=== PATIENT | female | born 1940 | race Caucasian/White ===

== ENCOUNTER → 2017-03-10 | Outpatient (REF) | payer MEDICARE, OTHER ==
[~2017-03-10] MED LIST: /ALEN70TA PO; /ALLEGDTA; /AMLO25TA PO; /CELE20CA PO; /DULO30CA PO; /LOR25TA PO; ABIL5TAB5 PO; AMIT10TA2; AMITRYPTYLINE; ASPE16CR EXT; ASPI325T PO; ASPI81TA85 PO; ATIV0.5T; ATIV1TAB2; ATIV1TAB7 PO; B COCAP5; B COTAB5 PO; BIATIN PO; BUDE300T; CALC500T49; CALCTAB88 PO; CELE100C; CELE10TA PO; CENTTAB12 PO; CHEW500C2 PO; CLAR5CHW PO; COLA50CA3 PO; COMBVENT; CYCLOSPORINE OU; CYMB1CAP5 PO; CYMBALTA PO; DEXILANT PO; DICL0.1S7 TOP; DULO30CA PO; ECOT81TA5 PO; EXELON; EYEDRO; FOLI400T PO; GABAPOW41 PO; HYDR-3713 PO; IBUPOTC PO; KETOPROFEN; LEVO50TA2 OR; LEVO50TA5 PO; LEVO75TA2; LEVO88TA3 PO; LEVOTHYROXINE PO; LIPI10TA; LISI40TA; LISI40TA PO; LISI40TAB PO; LORA2TAB; LORA2TAB PO; LORAPOW30 PO; MELOPOW; MOTR200T4 PO; NEUR100C; NEUR100C OR; NEUR300C PO; NEUR400C PO; OCUVTAB4 PO; PANT40TA2 PO; PERC5TAB6 PO; PERCOCET PO; POTASSIUM GLUCONATE; PRESER VISION PO; PRIL20CA; PROBCAP4 PO; REFR0.5D8 OU; REST0.05 OU; SALINE NASAL SPRAY; SENN8.6T10 PO; SIMV20TA2 PO; SYNT25TA PO; SYSTANE; TRAM50TA2; TRAZ50TA4 PO; TYL325; TYLE650T25 PO; ULTR50TA PO; VIT D 4000 PO; VITA10005 PO; VITA100072 PO; VITA20008 PO; VITAMIN D PO; VITAMIN D50000 UNT; VITAMIN D50000 UNT PO; VITMTA PO; WELL75TA PO; WELLTAB38 PO; ZEST40TA PO; ZOCO20TA PO; [UNRECOGNIZED DRUG - OTHER]; [UNRECOGNIZED DRUG - OTHER] OU; [UNRECOGNIZED DRUG - OTHER] OU; biotin PO; probiotic PO
== END ==
LOC: M LAB REF 16:59
PROVIDERS: ATTEND Internal Medicine
DX: R30.0 Dysuria (principal)

== ENCOUNTER 2017-04-27 22:49 | Emergency (ER) | payer MEDICARE, OTHER, MEDICAID ==
[~2017-04-27] VITALS: Ht 160 cm; Wt 75.0 kg
[~2017-04-27 22:49] MED LIST changes: +ABIL1TAB11 PO; -ABIL5TAB5 PO; +PERC5TAB12 PO; -PERC5TAB6 PO; +SENN1TAB10 PO; -SENN8.6T10 PO; +TRAZ50TA11 PO; -TRAZ50TA4 PO; -ULTR50TA PO; +ULTR50TA8 PO
[2017-04-28 00:25] LABS: BASO % 0.7 % (0.0-1.0); EOS # 0.3 K/mm3 (0.0-0.50); EOS % 5.2 % (0.0-3.0); LARGE UNSTAINED CELL # 0.2 K/mm3 (0.0-0.4); LARGE UNSTAINED CELL % 3.6 % (0.0-4.0); LYMPH # 2.3 K/mm3 (1.5-4.5); LYMPH % 41.1 % (24.0-44.0); MEAN CORPUSCULAR HEMOGLOBIN 33.4 pg (27.0-33.0); MEAN CORPUSCULAR HGB CONC 34.4 g/dl (32.0-36.5); MEAN CORPUSCULAR VOLUME 97.1 fl (80.0-96.0); MONO # 0.4 K/mm3 (0.0-0.8); MONO % 7.8 % (0.0-5.0); NEUTROPHILS # 2.2 K/mm3 (1.8-7.7); NEUTROPHILS % 41.5 % (36.0-66.0); PLATELET COUNT, AUTOMATED 235 k/mm3 (150-450); RED CELL DISTRIBUTION WIDTH 12.8 % (11.5-14.5); WHITE BLOOD COUNT 5.2 K/mm3 (4.0-10.0)
[2017-04-28 00:40] LABS: ALBUMIN 3.6 GM/DL (3.2-5.2); ALBUMIN/GLOBULIN RATIO 1.03 (1.00-1.93); ALKALINE PHOSPHATASE 66 U/L (45-117); ALT/SGPT 24 U/L (12-78); AMYLASE 31 U/L (25-115); ANION GAP 6 MEQ/L (8-16); AST/SGOT 21 U/L (15-37); BILIRUBIN,DIRECT 0.1 MG/DL (0.0-0.2); BILIRUBIN,TOTAL 0.3 MG/DL (0.2-1.0); BLOOD UREA NITROGEN 19 MG/DL (7-18); CALCIUM LEVEL 9.2 MG/DL (8.8-10.2); CARBON DIOXIDE LEVEL 28 MEQ/L (21-32); CHLORIDE LEVEL 105 MEQ/L (98-107); CREATININE FOR GFR 0.92 MG/DL (0.55-1.02); GLOMERULAR FILTRATION RATE > 60.0 (>39); GLUCOSE, FASTING 80 MG/DL (83-110); SODIUM LEVEL 139 MEQ/L (136-145); TOTAL PROTEIN 7.1 GM/DL (6.4-8.2)
[2017-04-28] MEDS ORDERED: OMEPRAZOLE 20 MG CAP PO ONE (01:15)
[2017-04-28 01:34] VITALS: BP 170/77
--- NOTE | 2017-04-29 05:53 | ECGEPIP ---
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
== END 2017-04-28 01:59 | disposition home or self-care (01) ==
LOC: EDBD 22:49 → M ED 22:49
DX: K21.9 Gastro-esophageal reflux disease without esophagitis (principal); E03.9 Hypothyroidism, unspecified; F41.9 Anxiety disorder, unspecified; M54.9 Dorsalgia, unspecified; Z87.891 Personal history of nicotine dependence; Z79.82 Long term (current) use of aspirin; Z79.899 Other long term (current) drug therapy; Z91.89 Other specified personal risk factors, not elsewhere classified

== ENCOUNTER 2017-07-21 11:42 | Emergency (ER) | payer MEDICARE, OTHER, MEDICAID ==
[~2017-07-21] VITALS: Ht 160 cm; Wt 75.9 kg
[2017-07-21] MEDS ORDERED: TUMS500C PO (12:10)
[2017-07-21] MEDS ORDERED: FLUTISP (12:10)
[2017-07-21] MEDS ORDERED: MUPI2OI EXT (12:10)
[2017-07-21] MEDS ORDERED: CENTTAB PO (12:10)
[2017-07-21] MEDS ORDERED: META58.612 PO (12:10)
[2017-07-21] MEDS ORDERED: SIME180C PO (12:10)
[2017-07-21] MEDS ORDERED: KETOROLAC 30 MG/ML VIAL (J1885) IV ONE (12:30)
[2017-07-21] MEDS ORDERED: ASPIRIN 81 MG CHEW TABLET PO ONE (12:30)
[2017-07-21] MEDS ORDERED: hydrALAZINE INJ 20 MG/ML VIAL IV ONE (12:30)
[2017-07-21 12:42] VITALS: BP 178/81
[2017-07-21 12:45] LABS: BASO % 0.7 % (0.0-1.0); EOS # 0.3 K/mm3 (0.0-0.50); EOS % 5.3 % (0.0-3.0); LARGE UNSTAINED CELL # 0.2 K/mm3 (0.0-0.4); LARGE UNSTAINED CELL % 3.7 % (0.0-4.0); LYMPH # 1.6 K/mm3 (1.5-4.5); LYMPH % 30.5 % (24.0-44.0); MEAN CORPUSCULAR HEMOGLOBIN 33.4 pg (27.0-33.0); MEAN CORPUSCULAR HGB CONC 34.1 g/dl (32.0-36.5); MEAN CORPUSCULAR VOLUME 98.2 fl (80.0-96.0); MONO # 0.3 K/mm3 (0.0-0.8); MONO % 5.5 % (0.0-5.0); NEUTROPHILS # 2.9 K/mm3 (1.8-7.7); NEUTROPHILS % 54.3 % (36.0-66.0); PLATELET COUNT, AUTOMATED 288 k/mm3 (150-450); RED CELL DISTRIBUTION WIDTH 12.5 % (11.5-14.5); WHITE BLOOD COUNT 5.4 K/mm3 (4.0-10.0)
[2017-07-21 13:11] LABS: ANION GAP 11 MEQ/L (8-16); BLOOD UREA NITROGEN 19 MG/DL (7-18); CARBON DIOXIDE LEVEL 26 MEQ/L (21-32); CHLORIDE LEVEL 104 MEQ/L (98-107); CREATININE FOR GFR 0.82 MG/DL (0.55-1.02); GLOMERULAR FILTRATION RATE > 60.0 (>39); GLUCOSE, FASTING 83 MG/DL (83-110); POTASSIUM SERUM 4.4 MEQ/L (3.5-5.1); SODIUM LEVEL 141 MEQ/L (136-145)
--- NOTE | 2017-07-21 13:16 | REP ---
Clinical: Chest pain. Technique: PA and lateral. Comparison: 02/20/2015. Findings: Mediastinum and cardiac silhouette are stable. Lung toney demonstrate chronic stable changes without acute consolidation, effusion, or pneumothorax. Skeletal structures demonstrate age-related degenerative changes and arthritic changes to the bilateral shoulders. Impression: No acute cardiopulmonary process or focal consolidation Signed by Abraham Bhagat MD 07/21/2017 01:08 P
[2017-07-21 15:14] VITALS: BP 132/96
--- NOTE | 2017-07-22 07:50 | ECGEPIP ---
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
== END 2017-07-21 16:40 | disposition home or self-care (01) ==
LOC: M ED 11:42
DX: M54.2 Cervicalgia (principal); M54.6 Pain in thoracic spine; I10 Essential (primary) hypertension; E78.00 Pure hypercholesterolemia, unspecified; F41.9 Anxiety disorder, unspecified; F32.9 Major depressive disorder, single episode, unspecified; G47.30 Sleep apnea, unspecified; Z86.73 Personal history of transient ischemic attack (TIA), and cerebral infarction without residual deficits; Z87.891 Personal history of nicotine dependence; Z79.82 Long term (current) use of aspirin; Z79.899 Other long term (current) drug therapy; Z91.89 Other specified personal risk factors, not elsewhere classified
CPT/HCPCS: 36415; 71020; 80048; 82550; 82553; 83880; 84484; 85025; 93005; 93041; 94760; 96374; 96375; 99285; J1885

== ENCOUNTER 2017-10-05 10:26 | Outpatient (RCR) | payer MEDICARE, OTHER, MEDICAID ==
[~2017-10-05 10:26] MED LIST changes: +CENTTAB PO; +FLUTISP; +META58.612 PO; +MUPI2OI EXT; +SIME180C PO; +TUMS500C PO
== END 2017-10-06 | disposition home or self-care (01) ==
LOC: M PT 10:26
PROVIDERS: ATTEND Orthopaedic Surgery
DX: Z51.89 Encounter for other specified aftercare (principal); M75.120 Complete rotator cuff tear or rupture of unspecified shoulder, not specified as traumatic; M19.011 Primary osteoarthritis, right shoulder
CPT/HCPCS: 97110; 97140; 97163; G8984; G8985

== ENCOUNTER 2017-10-12 10:52 | Outpatient (RCR) | payer MEDICARE, OTHER, MEDICAID | END 2017-11-06 | LOC: M PT 10:52 | DX: Z51.89 Encounter for other specified aftercare (principal); M19.011 Primary osteoarthritis, right shoulder; M75.111 Incomplete rotator cuff tear or rupture of right shoulder, not specified as traumatic; S50.01XA Contusion of right elbow, initial encounter | CPT/HCPCS: 97110 ==

== ENCOUNTER → 2018-01-26 | Outpatient (REF) | payer MEDICARE, OTHER, MEDICAID | DX: J98.11 Atelectasis (principal) | CPT/HCPCS: 71045 ==

== ENCOUNTER → 2018-02-28 | Outpatient (REF) | payer MEDICARE, OTHER, MEDICAID ==
[2018-02-28 10:46] LABS: HEMATOCRIT 36.2 % (36.0-47.0); HEMOGLOBIN 12.5 g/dl (12.0-15.5); MEAN CORPUSCULAR HEMOGLOBIN 32.7 pg (27.0-33.0); MEAN CORPUSCULAR HGB CONC 34.5 g/dl (32.0-36.5); MEAN CORPUSCULAR VOLUME 94.8 fl (80.0-96.0); PLATELET COUNT, AUTOMATED 289 10^3/uL (150-450); RED BLOOD COUNT 3.82 10^6/uL (4.00-5.40); WHITE BLOOD COUNT 6.2 10^3/uL (4.0-10.0)
== END ==
DX: R53.83 Other fatigue (principal)
CPT/HCPCS: 85027

== ENCOUNTER → 2018-03-07 | Outpatient (REF) | payer MEDICARE, OTHER, MEDICAID ==
[2018-03-07 11:05] LABS: CHOLESTEROL LEVEL 160 MG/DL (<200); CHOLESTEROL RISK RATIO 2.424 (<5); HDL CHOLESTEROL 66 MG/DL (>40); LDL CHOLESTEROL 75.4 MG/DL (<100); NON-HDL-C 94 MG/DL; TRIGLYCERIDES LEVEL 93 MG/DL (<150)
== END ==
DX: E78.5 Hyperlipidemia, unspecified (principal)
CPT/HCPCS: 80061

== ENCOUNTER → 2018-06-22 | Outpatient (REF) | payer MEDICARE, OTHER, MEDICAID ==
[2018-06-22 18:57] LABS: VITAMIN B12 LEVEL 716 PG/ML (247-911)
== END ==
LOC: M LAB REF 17:45
DX: R20.2 Paresthesia of skin (principal)
CPT/HCPCS: 82607

== ENCOUNTER → 2018-08-29 | Outpatient (REF) | payer MEDICARE, OTHER, MEDICAID ==
[2018-08-29 10:07] LABS: ALBUMIN 3.9 GM/DL (3.2-5.2); ALBUMIN/GLOBULIN RATIO 1.18 (1.00-1.93); ALKALINE PHOSPHATASE 87 U/L (45-117); ALT/SGPT 21 U/L (12-78); ANION GAP 9 MEQ/L (8-16); AST/SGOT 16 U/L (7-37); BILIRUBIN,TOTAL 0.5 MG/DL (0.2-1.0); BLOOD UREA NITROGEN 17 MG/DL (7-18); CALCIUM LEVEL 9.6 MG/DL (8.8-10.2); CARBON DIOXIDE LEVEL 27 MEQ/L (21-32); CHLORIDE LEVEL 103 MEQ/L (98-107); CHOLESTEROL LEVEL 170 MG/DL (<200); CHOLESTEROL RISK RATIO 2.328 (<5); CREATININE FOR GFR 0.91 MG/DL (0.55-1.30); GLOMERULAR FILTRATION RATE > 60.0 (>39); GLUCOSE, FASTING 100 MG/DL (70-100); HDL CHOLESTEROL 73 MG/DL (>40); LDL CHOLESTEROL 83 MG/DL (<100); NON-HDL-C 97 MG/DL; POTASSIUM SERUM 4.4 MEQ/L (3.5-5.1); SODIUM LEVEL 139 MEQ/L (136-145); TOTAL PROTEIN 7.2 GM/DL (6.4-8.2); TRIGLYCERIDES LEVEL 68 MG/DL (<150)
== END ==
DX: E03.9 Hypothyroidism, unspecified (principal); I10 Essential (primary) hypertension
CPT/HCPCS: 84443

== ENCOUNTER 2018-09-30 22:02 | Observation (INO) | payer MEDICARE, OTHER, MEDICAID ==
[~2018-09-30] VITALS: Ht 160 cm; Wt 77.9 kg
[~2018-09-30 22:02] MED LIST changes: -ASPE16CR EXT; +ASPE16CR TOP; -FLUTISP; +FLUTISP NARES; -PANT40TA2 PO; +PANT40TA3 PO; +TRAZ-160 PO; -TRAZ50TA11 PO
[2018-09-30] MEDS ORDERED: NYST1POW9 TOP (22:59)
[2018-09-30] MEDS ORDERED: OXYB5TAB PO (22:59)
[2018-09-30] MEDS ORDERED: LISI-538 PO (22:59)
[2018-09-30] MEDS ORDERED: MECL-68 PO (22:59)
[2018-09-30] MEDS ORDERED: HYDR25TAB PO (22:59)
[2018-09-30] MEDS ORDERED: MACR100C43 PO (22:59)
[2018-09-30] MEDS ORDERED: LORA-243 PO (22:59)
[2018-09-30] MEDS ORDERED: PANT20TA51 PO (22:59)
[2018-09-30] MEDS ORDERED: GABA-845 PO ×2 (22:59)
[2018-09-30] MEDS ORDERED: SIME80TA PO (23:10)
[2018-09-30] MEDS ORDERED: DULO1CAP3 PO (23:10)
[2018-09-30] MEDS ORDERED: VENTAER INH (23:10)
[2018-09-30] MEDS ORDERED: MUPI30CR NARES (23:10)
[2018-09-30] MEDS ORDERED: COLA100C5 PO (23:15)
[2018-09-30] MEDS ORDERED: TYLE500T78 PO (23:15)
[2018-09-30] MEDS ORDERED: GUAI1SYP8 PO (23:15)
[2018-09-30] MEDS ORDERED: SODI0.65 NARES (23:15)
[2018-09-30] MEDS ORDERED: [UNRECOGNIZED DRUG - CODE] PO (23:21)
[2018-09-30] MEDS ORDERED: CAPS0.022 TOP (23:21)
[2018-09-30] MEDS ORDERED: PREPCRE PR (23:21)
[2018-09-30] MEDS ORDERED: BIOTLIQ3 MT (23:21)
[2018-09-30] MEDS ORDERED: [UNRECOGNIZED DRUG - CODE] PO (23:21)
[2018-09-30 23:40] LABS: BASO % 0.2 % (0.0-1.0); EOS # 0.4 10^3/uL (0.0-0.50); EOS % 6.7 % (0.0-3.0); HEMATOCRIT 32.3 % (36.0-47.0); HEMOGLOBIN 11.3 g/dl (12.0-15.5); LYMPH # 0.5 10^3/uL (1.5-4.5); LYMPH % 7.6 % (24.0-44.0); MEAN CORPUSCULAR HEMOGLOBIN 32.9 pg (27.0-33.0); MEAN CORPUSCULAR VOLUME 94.2 fl (80.0-96.0); MONO # 0.5 10^3/uL (0.0-0.8); MONO % 7.7 % (0.0-5.0); NEUTROPHILS # 5.1 10^3/uL (1.8-7.7); NEUTROPHILS % 77.5 % (36.0-66.0); PLATELET COUNT, AUTOMATED 205 10^3/uL (150-450); RED BLOOD COUNT 3.43 10^6/uL (4.00-5.40); WHITE BLOOD COUNT 6.6 10^3/uL (4.0-10.0)
--- NOTE | 2018-09-30 23:46 | REPVR ---
EXAM: CT Head Without Intravenous Contrast EXAM DATE/TIME: 09/30/2018 11:31 PM CLINICAL HISTORY: 78 years old, female; Signs and symptoms; Weakness, extremity; Additional info: CVA - nursing interventions must not delay CT TECHNIQUE: Axial computed tomography images of the head/brain without intravenous contrast. All CT scans at this facility use at least one of these dose optimization techniques: automated exposure control; mA and/or kV adjustment per patient size (includes targeted exams where dose is matched to clinical indication); or iterative reconstruction. COMPARISON: CT Head without contrast 02/20/2015 1:20 PM FINDINGS: Brain: There is parenchymal volume loss consistent with patient's age. Also demonstrated are white matter changes in the subcortical, centrum semiovale and periventricular white matter consistent with age related small vessel microangiopathic gliosis. Mild midline cerebellar atrophy. Ventricles: The degree of ventricular dilatation is normal for age. No pathologic enlargement demonstrated. Bones/joints: Normal. No acute fracture. Sinuses: Normal as visualized. No acute sinusitis. Mastoid air cells: Normal as visualized. No mastoid effusion. Soft tissues: Normal. IMPRESSION: 1. There is parenchymal volume loss consistent with patient's age. Also demonstrated are white matter changes in the subcortical, centrum semiovale and periventricular white matter consistent with age related small vessel microangiopathic gliosis. 2. Mild midline cerebellar atrophy. 3. No interval change. Electronically signed by: Emiliano Aponte On 09/30/2018 23:45:35 PM
[2018-10-01] MEDS ORDERED: NS 1,000 ML IV ONE
[2018-10-01 00:09] LABS: BLOOD UREA NITROGEN 31 MG/DL (7-18); CALCIUM LEVEL 8.4 MG/DL (8.8-10.2); CARBON DIOXIDE LEVEL 26 MEQ/L (21-32); CHLORIDE LEVEL 95 MEQ/L (98-107); CPK CREATINE PHOSPHOKINASE 226 U/L (26-192); CREATININE FOR GFR 1.16 MG/DL (0.55-1.30); FREE T4 1.11 NG/DL (0.76-1.46); GLOMERULAR FILTRATION RATE 47.9 (>32); GLUCOSE, FASTING 137 MG/DL (70-100); MB/CK RELATIVE INDEX 1.24 (< OR =4); POTASSIUM SERUM 3.5 MEQ/L (3.5-5.1); SODIUM LEVEL 130 MEQ/L (136-145); TROPONIN I < 0.02 NG/ML (< 0.10)
[2018-10-01] MEDS ORDERED: MECLIZINE 25 MG TABLET PO PRN (02:45)
[2018-10-01] MEDS ORDERED: NYSTATIN 100,000 UNITS/GM TOPICAL PWD 15 GM TOP PRN (02:45)
--- NOTE | 2018-10-01 03:05 | HPEPDOC ---
[facility] Medical History & Physical Date of Admission Oct 01, 2018 History and Physical CHIEF COMPLAINT: Weakness, recent fall HISTORY OF PRESENT ILLNESS: Hayde Pond is an 78 YO F with history of hypertension, hypothyroidism, depression who was found earlier today on the floor of her studio apartment at the [facility] assisted living home after an unwitnessed fall. She states that she does not remember exactly what happened that led to her falling, but she denies any lightheadedness or dizziness prior to falling. She describes that she was leaving her bathroom heading back to her bed and she may have "turned too quickly" and lost her balance. As of recently, she has not felt stable on her feet and has has several falls. She does not report falling on her head and only complains of lower back pain, which is unchanged from her baseline. She states she has felt "blah" for the last couple of days, meaning she has not had an appetite for certain meals and generally has felt weak with very low energy. She says she was found to have a fever this morning, but she is unsure of how high. She has not been ill recently and denies any SOB, CP, abdominal pain, N/V or diarrhea. Of note, she was recently found to have a UTI and has been on macrobid since 09/28/2018. She denies any dysuria, but does report having difficulty starting her urinary stream. PAST MEDICAL HISTORY: 1. HTN 2. Hypercholesterolemia 3. GERD 4. Hypothyroidism 5. Neuropathy 6. History of stroke 7. Depression PAST SURGICAL HISTORY: 1. Back surgery (2013) SOCIAL HISTORY: Lives at [facility]. Former smoker (quit >40 years ago). Denies ET [place]. FAMILY HISTORY: Noncontributory ALLERGIES: Please see below. REVIEW OF SYSTEMS: Per HPI HOME MEDICATIONS: Please see below. PHYSICAL EXAMINATION: VITAL SIGNS: Temperature 98.3, pulse 90, respiratory rate 20, blood pressure 150/71, pulse oximetry 95% on room air. GENERAL APPEARANCE: Laying in bed sleeping, no acute distress, calm, cooperative HEENT: Normocephalic, atraumatic, L eyelid discoloration CARDIOVASCULAR: RRR, no m/r/g, nml S1/S2 LUNGS: Clear to auscultation bilaterally ABDOMEN: Soft, nontender, +BS, no organomegaly EXTREMITIES: no clubbing, cyanosis or edema NEUROLOGICAL: CN 2-12 intact, decreased sensation in plantar surface of feet bilaterally, no other focal deficits PSYCHIATRIC: AAOx3, normal mood, normal affect LABORATORY DATA: See below. IMAGING: CT head: 1. There is parenchymal volume loss consistent with patient's age. Also demonstrated are white matter changes in the subcortical, centrum semiovale and periventricular white matter consistent with age related small vessel microangiopathic gliosis. 2. Mild midline cerebellar atrophy. 3. No interval change. MICROBIOLOGY: Please see below. ASSESSMENT: Hayde Pond is an 78 YO F with recently diagnosed with UTI on abx at assisted living, hypertension, HLD, GERD, Hypothyroidism, neuropathy, hx of stroke, depression who presents to the ED after fall and complaint of weakness in [facility]. In ER, patient found to be orthostatic. PLAN: 1. Recent falls and weakness: suspect from orthostatic hypotension and dehydration from recent UTI-currently on treatment, and neuropathy -Patient reports she feels she is is unstable on her feet -PT ordered to assess mobility -CT head negative for any acute process and no focal deficits noted on physical exam. Patient does have a history of neuropathy and parts of her feet are without sensation. This may be the etiology of her repeated falls. -No indication for syncope workup at this time except tele but would consider if patient does not improve on current regimen. -Patient is orthostatic at this time; Will give 1 L IVF NS in addition to the 1L bolus in ED, hold HCTZ for now -Orthostatic vitals Q4H -Fall precautions 2. Dehydration: Patient found to have elevated CK and BUN. On UTI treatment -Should improve with fluids -Will recheck labs in AM -Patient does report decreased PO intake recently -Holding HCTZ for hypertension at this time 3. Recent UTI on abx treatment: -Macrobid changed to Cipro x3 days to adjust for patient's renal function 4. Neuropathy: -Continue Gabapentin 400 BID and 800 QHS 5. HTN: -Continue Lisinopril -Holding HCTZ 6. HLD: -Continue Simvastatin 7. Hypothyroidism: -Continue Levothyroxine -TSH normal 8. Depression: -Continue Duloxetine DVT prop w hep sc CODE STATUS:Patient request DNR/DNI Vital Signs Vital Signs Date Time Temp Pulse Resp B/P (MAP) Pulse Ox O2 Delivery O2 Flow Rate FiO2 10/01/18 01:05 150/71 (97) 10/01/18 01:02 96 10/01/18 00:47 18 92 09/30/18 22:12 98.3 Room Air 09/30/18 22:10 2.0 Laboratory Data Labs 24H Laboratory Tests 2 09/30/18 23:22: Immature Granulocyte % (Auto) 0.3, White Blood Count 6.6, Red Blood Count 3.43L, Hemoglobin 11.3L, Hematocrit 32.3L, Mean Corpuscular Volume 94.2, Mean Corpuscular Hemoglobin 32.9, Mean Corpuscular Hemoglobin Concent 35.0, Red Cell Distribution Width 12.6, Platelet Count 205, Neutrophils (%) (Auto) 77.5H, Lymphocytes (%) (Auto) 7.6L, Monocytes (%) (Auto) 7.7H, Eosinophils (%) (Auto) 6.7H, Basophils (%) (Auto) 0.2, Neutrophils # (Auto) 5.1, Lymphocytes # (Auto) 0.5L, Monocytes # (Auto) 0.5, Eosinophils # (Auto) 0.4, Basophils # (Auto) 0.0, Nucleated Red Blood Cells % (auto) 0.0, Anion Gap 9, Glomerular Filtration Rate 47.9, Blood Urea Nitrogen 31H, Creatinine 1.16, Sodium Level 130L, Potassium Level 3.5, Chloride Level 95L, Carbon Dioxide Level 26, Calcium Level 8.4L, T otal Creatine Kinase 226H, Creatine Kinase MB 3.0, Creatine Kinase MB Relative Index 1.24, Troponin I < 0.02, Thyroid Stimulating Hormone (TSH) 1.910, Free Thyroxine 1.11 09/30/18 23:47: Bedside Glucose (Misc Panel) 127H 10/01/18 01:07: Urine Color ADONIS, Urine Appearance HAZY, Urine pH 5.0, Urine Specific [place] 1.014, Urine Protein NEGATIVE, Urine Glucose (UA) NEGATIVE, Urine Ketones NEGATIVE, Urine Blood NEGATIVE, Urine Nitrite NEGATIVE, Urine Bilirubin NEGATIVE, Urine Urobilinogen 4.0H, Urine Leukocyte Esterase TRACEH, Urine WBC (Auto) 4H, Urine RBC (Auto) 2, Urine Hyaline Casts (Auto) 0, Urine Bacteria (Auto) NEGATIVE, Urine Squamous Epithelial Cells 0, Urine Sperm (Auto) CBC/BMP Laboratory Tests 09/30/18 23:22 Red Blood Count 3.43 L, Mean Corpuscular Volume 94.2, Mean Corpuscular Hemoglobin 32.9, Mean Corpuscular Hemoglobin Concent 35.0, Red Cell Distribution Width 12.6, Neutrophils (%) (Auto) 77.5 H, Lymphocytes (%) (Auto) 7.6 L, Monocytes (%) (Auto) 7.7 H, Eosinophils (%) (Auto) 6.7 H, Basophils (%) (Auto) 0.2, Neutrophils # (Auto) 5.1, Lymphocytes # (Auto) 0.5 L, Monocytes # (Auto) 0.5, Eosinophils # (Auto) 0.4, Basophils # (Auto) 0.0, Calcium Level 8.4 L, Total Creatine Kinase 226 H Microbiology Microbiology 10/01/18 Urine Culture, Received Pending Home Medications Scheduled (Restasis) 0.05 % Emu, 1 DROP OU BID (Metamucil Fiber) 51.7 % Kevin, 1 DOSE PO DAILY Aspirin (Aspirin) 325 Mg Tab, 325 MG PO DAILY Calcium Carbonate (Tums) 500 Mg Chw, 500 MG PO BID Cholecalciferol (Vitamin D3) 2,000 Unit Tab, 2,000 UNIT PO DAILY Duloxetine Hcl (Duloxetine HCl) 60 Mg Cap, 60 MG PO DAILY Fluticasone Propionate (Fluticasone Propionate) 50 Mcg/Act Spr, 2 SPRAY NARES DAILY Folic Acid (Folic Acid) 400 Mcg Tab, 400 MCG PO DAILY Gabapentin (Gabapentin) 400 Mg Cap, 800 MG PO QHS Gabapentin (Gabapentin) 400 Mg Cap, 400 MG PO BID 0900, 1400 Hydrochlorothiazide (Hydrochlorothiazide) 25 Mg Tab, 25 MG PO DAILY Levothyroxine Sodium (Synthroid) 50 Mcg Tab, 50 MCG PO DAILY Lisinopril (Lisinopril) 20 Mg Tab, 20 MG PO QHS Loratadine (Loratadine) 10 Mg Tab, 10 MG PO DAILY Multivitamin Areds (Preservision Areds) 1 Tab Tab, 2 TAB PO BID Multivitamins (Centrum Silver) 1 Tab Tab, 1 TAB PO DAILY Nitrofurantoin Monohydrate Mac (Macrobid) 100 Mg Cap, 100 MG PO BID FOR 7 DAYS STARTING 09/28/18 Oxybutynin Chloride (Oxybutynin Chloride ER) 5 Mg Tab, 5 MG PO DAILY Pantoprazole Sodium Sesquihydr (Pantoprazole Sodium Dr) 20 Mg Tab, 20 MG PO BID Simvastatin (Zocor) 20 Mg Tab, 20 MG PO QHS Vitamin B Complex/Vit C (B Complex/C) 1 Tab Tab, 1 TAB PO DAILY Scheduled PRN (Aspercreme W/Lidocaine) 4 % Cre, 1 DOSE TOP Q6H PRN for PAIN APPLIES TO LOWER BACK (Guaifenesin/Dextromethorp 10-100 mg/5Ml) 1 Syp Syp, 1 DOSE PO Q4H PRN for COUGH (Biotene Dry Mouth Mouthwa) 1 Liq Liq, 1 DOSE MT QID PRN for DRY MOUTH (Ibuprofen Pm 200-38 mg) 1 Tab Tab, 1 TAB PO QHS PRN for INSOMNIA (Preparation H 1-0.25-14.4-15 %) 1 Cre Cre, 1 DOSE [place] QID PRN for HEMORRHOIDS Acetaminophen (Tylenol Extra Strength) 500 Mg Tab, 500 MG PO Q12H PRN for PAIN Albuterol Sulfate (Ventolin Hfa) 108 Mcg/Act Aer, 2 PUFF INH Q4H PRN for SOB/WHEEZING Capsaicin (Capsaicin) 0.025 % Cre, 1 DOSE TOP TID PRN for PAIN Carboxymethylcellulose Sodium (Refresh Tears) 0.5 % Johan, 1 DROP OU QID PRN for DRY EYES Docusate Sodium (Colace) 100 Mg Cap, 100 MG PO BID PRN for CONSTIPATION Ibuprofen (Ibuprofen) 200 Mg Tab, 200 MG PO Q6H PRN for PAIN Lysine HCl (l-Lysine) 1,000 Mg Tab, 1,000 MG PO QID PRN for COLD SORE Meclizine HCl (Meclizine HCl) 25 Mg Tab, 25 MG PO Q6H PRN for DIZZINESS Mupirocin (Mupirocin) 1 Dose/30 Gm Cream, 1 DOSE TOP BID PRN for RASH DIRECTED FOR NASAL RASH Nystatin (Nystatin Powder) 100,000 Unit/Gm Pow, 1 DOSE TOP BID PRN for RASH APPLY TO AFFECTED AREA UNDER BREASTS AND IN GROIN AREA Simethicone (Simethicone) 80 Mg Chew, 80 MG PO QID PRN for GAS PAIN Sodium Chloride (Sodium Chloride Nasal [place]) 0.65 % Spr, 2 SPRAY NARES Q6H PRN for NASAL DRYNESS EACH NOSTRIL Allergies Coded Allergies: TAPE (Verified Adverse Reaction, Intermediate, RED AREA, TAKES SKIN OFF, 07/23/15) GME ATTESTATION GME ATTESTATION My faculty preceptor for this patient encounter was physically present during the encounter and was fully available. All aspects of the patient interview, examination, medical decision making process, and medical care plan development were reviewed and approved by the faculty preceptor. The faculty preceptor is aware and concurs with the plan as stated in the body of this note and will attest to such by his/her cosignature. IRVING PAINTER MD Oct 01, 2018 03:05 ISSA BANKS MD Oct 01, 2018 03:48
[2018-10-01] MEDS ORDERED: IPRATROPIUM 0.5MG/ALBUTEROL 2.5MG INH SOL UD 3ML (DUONEB)(J7620) NEB PRN (03:15)
[2018-10-01 04:45] VITALS: BP 132/60
[2018-10-01] MEDS: NS 1,000 ML IV SCH ×3 (04:53→23:37)
[2018-10-01 05:00] VITALS: BP_SYST 132; BP_SYST 137; BP_SYST 142; BP_DIAS 60; BP_DIAS 67; BP_DIAS 74
[2018-10-01] MEDS: HEPARIN SOD (PORCINE) 5000 UNITS/ML VIAL SC SCH ×3 (05:54→20:48)
[2018-10-01] MEDS: LEVOTHYROXINE 50MCG TABLET (0.05MG) PO SCH (06:00)
[2018-10-01] MEDS: ACETAMINOPHEN TAB 650MG DOSE (2X325MG) PO PRN ×3 (07:53→17:07)
--- NOTE | 2018-10-01 08:08 | REP ---
Clinical: Acute cerebrovascular accident . Comparison: 01/26/2018 . Findings: The mediastinum and cardiac silhouette are stable and within normal limits for portable technique. Chronic elevation to the right hemidiaphragm again noted. The lung toney demonstrate chronic stable changes without acute consolidation, effusion, or pneumothorax. Skeletal structures demonstrate degenerative changes primarily involving the bilateral shoulders. Impression: No acute cardiopulmonary process appreciated. Electronically Signed by Abraham Bhagat MD 10/01/2018 07:59 A
[2018-10-01] MEDS: ASPIRIN 325 MG TAB PO SCH (08:28)
[2018-10-01] MEDS: DULoxetine 30 MG CAP (CYMBALTA) PO SCH (08:28)
[2018-10-01] MEDS: oxyBUTYnin *DITROPAN XL* 5 MG TABCR PO SCH (08:28)
[2018-10-01] MEDS: CEFDINIR 300 MG CAP (OMNICEF) PO SCH ×2 (08:29→20:48)
[2018-10-01] MEDS: GABAPENTIN 400 MG CAP PO SCH ×3 (08:29→20:50)
[2018-10-01] MEDS: LORATADINE 10 MG TAB PO SCH (08:29)
[2018-10-01] MEDS: SENOKOT S TAB PO SCH ×2 (08:29→20:50)
[2018-10-01] MEDS ORDERED: hydroCHLOROthiazide 25 MG TAB PO SCH (09:00)
[2018-10-01] MEDS ORDERED: CIPROFLOXACIN 500 MG TAB PO SCH (09:00)
[2018-10-01] MEDS ORDERED: NITROFURANTOIN (MACROBID) 100 MG CAP PO SCH (09:00)
[2018-10-01 10:00] VITALS: BP_SYST 109; BP_SYST 118; BP_SYST 120; BP_DIAS 41; BP_DIAS 53; BP_DIAS 60
[2018-10-01 14:00] VITALS: BP_SYST 125; BP_SYST 137; BP_SYST 142; BP_DIAS 61; BP_DIAS 63; BP_DIAS 64; BP_DIAS 67
[2018-10-01 18:00] VITALS: BP_SYST 130; BP_SYST 138; BP_SYST 139; BP_SYST 156; BP_DIAS 52; BP_DIAS 63; BP_DIAS 65; BP_DIAS 82
--- NOTE | 2018-10-01 20:43 | ECGEPIP ---
Stationary ECG Study [facility] - ED Test Date: 2018-09-30 Pat Name: ROYA VILLAFANA Department: Room: [place] [address] Gender: F Manager Wind: tasneem : 1940 Requested By: STEVEN KOVACS Order Number: [id number] Reading MD: Marysol Lee Measurements Intervals [place] Rate: 87 P: 49 MS: 190 QRS: 25 QRSD: 106 T: 55 QT: 357 QTc: 431 Interpretive Statements SINUS RHYTHM INCREASED RATE 07/21/17 Electronically Signed On 10-01-2018 20:42:46 EST by Marysol Lee
[2018-10-01] MEDS: LISINOPRIL 20 MG TAB PO SCH (20:49)
[2018-10-01] MEDS: SIMVASTATIN 20 MG TAB PO SCH (20:50)
[2018-10-01] MEDS ORDERED: LISINOPRIL 20 MG TAB PO SCH (21:00)
[2018-10-01 22:00] VITALS: BP_SYST 135; BP_SYST 136; BP_SYST 140; BP_SYST 141; BP_DIAS 65; BP_DIAS 67; BP_DIAS 68
[2018-10-02] VITALS (9 sets, daily range): BP systolic 135–160; BP diastolic 63–91
[2018-10-02] MEDS: HEPARIN SOD (PORCINE) 5000 UNITS/ML VIAL SC SCH ×3 (05:44→21:08)
[2018-10-02] MEDS: LEVOTHYROXINE 50MCG TABLET (0.05MG) PO SCH (05:44)
[2018-10-02 06:00] LABS: HEMATOCRIT 31.5 % (36.0-47.0); HEMOGLOBIN 10.8 g/dl (12.0-15.5); MEAN CORPUSCULAR HEMOGLOBIN 32.9 pg (27.0-33.0); MEAN CORPUSCULAR HGB CONC 34.3 g/dl (32.0-36.5); PLATELET COUNT, AUTOMATED 193 10^3/uL (150-450); RED BLOOD COUNT 3.28 10^6/uL (4.00-5.40); WHITE BLOOD COUNT 4.1 10^3/uL (4.0-10.0)
[2018-10-02 06:23] LABS: BLOOD UREA NITROGEN 19 MG/DL (7-18); CALCIUM LEVEL 7.9 MG/DL (8.8-10.2); CARBON DIOXIDE LEVEL 26 MEQ/L (21-32); CHLORIDE LEVEL 104 MEQ/L (98-107); CREATININE FOR GFR 0.91 MG/DL (0.55-1.30); GLOMERULAR FILTRATION RATE > 60.0 (>32); GLUCOSE, FASTING 96 MG/DL (70-100); POTASSIUM SERUM 3.7 MEQ/L (3.5-5.1); SODIUM LEVEL 136 MEQ/L (136-145)
[2018-10-02] MEDS: DULoxetine 30 MG CAP (CYMBALTA) PO SCH (08:40)
[2018-10-02] MEDS: oxyBUTYnin *DITROPAN XL* 5 MG TABCR PO SCH (08:40)
[2018-10-02] MEDS: ASPIRIN 325 MG TAB PO SCH (08:40)
[2018-10-02] MEDS: CEFDINIR 300 MG CAP (OMNICEF) PO SCH ×2 (08:40→19:55)
[2018-10-02] MEDS: LORATADINE 10 MG TAB PO SCH (08:41)
[2018-10-02] MEDS: GABAPENTIN 400 MG CAP PO SCH ×3 (08:41→19:55)
[2018-10-02] MEDS: ACETAMINOPHEN TAB 650MG DOSE (2X325MG) PO PRN ×2 (08:41→19:54)
[2018-10-02] MEDS: SENOKOT S TAB PO SCH ×2 (08:41→20:01)
--- NOTE | 2018-10-02 10:11 | IPNPDOC ---
Date Seen The patient was seen on 10/02/18. Progress Note SUBJECTIVE: Ms. Pond states she feels better this morning compared to when she was admitted and is able to get around without issue but has not worked with physical therapy yet. She does report that she is not dizzy when she walks around, but once she sits down she feels dizzy. She is able to eat and drink well, and has not had a BM due to constipation. She was encouraged to take her PRN stool softeners. OBJECTIVE PHYSICAL EXAMINATION: VITAL SIGNS: Please see below. GENERAL APPEARANCE: Laying in bed sleeping, no acute distress, calm, cooperative HEENT: Normocephalic, atraumatic, L eyelid discoloration CARDIOVASCULAR: RRR, no m/r/g, nml S1/S2 LUNGS: Clear to auscultation bilaterally ABDOMEN: Soft, nontender, +BS, no organomegaly EXTREMITIES: no clubbing, cyanosis or edema NEUROLOGICAL: CN 2-12 intact, decreased sensation in plantar surface of feet bilaterally, no other focal deficits PSYCHIATRIC: AAOx3, normal mood, normal affect LABORATORY DATA, IMAGING STUDIES, MICROBIOLOGY: Please see below. DVT prophylaxis ordered?: [facility] ASSESSMENT: Hayde Pond is an 78 YO F with recently diagnosed with UTI on abx at [facility], hypertension, HLD, GERD, Hypothyroidism, neuropathy, hx of stroke, depression who presents to the ED after fall and complaint of weakness in [facility]. In ER, patient found to be orthostatic. PLAN: 1. Recent falls and weakness: suspect from orthostatic hypotension and dehydration from recent UTI-currently on treatment, and neuropathy -Patient reports she feels she is is unstable on her feet -PT ordered to assess mobility -CT head negative for any acute process and no focal deficits noted on physical exam. Patient does have a history of neuropathy and parts of her feet are without sensation. This may be the etiology of her repeated falls. -Continuous tele without event -Orthostasis resolved s/p multiple 1L bolus NS -Continue Orthostatic vitals Q4H -Fall precautions 2. Dehydration: Patient found to have elevated CK and BUN. On UTI treatment -Repeat labs demonstrate improvement in BUN -Patient does report decreased PO intake recently -Holding HCTZ for hypertension at this time 3. Recent UTI on abx treatment: -Cipro changed to Cefdinir 4. Neuropathy: -Continue Gabapentin 400 BID and 800 QHS 5. HTN: -Lisinopril decreased to avoid excessive hypotension -Holding HCTZ 6. HLD: -Continue Simvastatin 7. Hypothyroidism: -Continue Levothyroxine -TSH normal 8. Depression: -Continue Duloxetine DVT prop w hep sc CODE STATUS:Patient request DNR/DNI VS, I&O, 24H, Fishbone Vital Signs/I&O Vital Signs Date Time Temp Pulse Resp B/P (MAP) Pulse Ox O2 Delivery O2 Flow Rate FiO2 10/02/18 06:00 80 154/74 (100) 78 143/65 (91) 83 154/77 (102) 10/02/18 06:00 97.2 92 Room Air 10/02/18 02:00 16 09/30/18 22:10 2.0 I&O- Last 24 Hours up to 6 AM 10/02/18 06:00 Intake Total 3580 ml Output Total 2500 ml Balance 1080 ml Laboratory Data 24H LABS Laboratory Tests 2 10/02/18 05:44: Nucleated Red Blood Cells % (auto) 0.0, Anion Gap 6L, Glomerular Filtration Rate > 60.0, Blood Urea Nitrogen 19H, Creatinine 0.91, Sodium Level 136, Potassium Level 3.7, Chloride Level 104, Carbon Dioxide Level 26, Calcium Level 7.9L CBC/BMP Laboratory Tests 10/02/18 05:44 Red Blood Count 3.28 L, Mean Corpuscular Volume 96.0, Mean Corpuscular Hemoglobin 32.9, Mean Corpuscular Hemoglobin Concent 34.3, Red Cell Distribution Width 12.8, Calcium Level 7.9 L Microbiology Microbiology 10/01/18 Urine Culture, Received Pending GME ATTESTATION GME ATTESTATION My faculty preceptor for this patient encounter was physically present during the encounter and was fully available. All aspects of the patient interview, examination, medical decision making process, and medical care plan development were reviewed and approved by the faculty preceptor. The faculty preceptor is aware and concurs with the plan as stated in the body of this note and will attest to such by his/her cosignature. IRVING PAINTER MD Oct 02, 2018 08:21
[2018-10-02] MEDS: SIMVASTATIN 20 MG TAB PO SCH (19:55)
[2018-10-02] MEDS: LISINOPRIL 20 MG TAB PO SCH (20:01)
[2018-10-03] MEDS: LEVOTHYROXINE 50MCG TABLET (0.05MG) PO SCH (05:34)
[2018-10-03] MEDS: HEPARIN SOD (PORCINE) 5000 UNITS/ML VIAL SC SCH (05:35)
[2018-10-03 06:00] VITALS: BP 160/84
[2018-10-03 06:25] LABS: HEMATOCRIT 31.2 % (36.0-47.0); HEMOGLOBIN 11.1 g/dl (12.0-15.5); MEAN CORPUSCULAR HEMOGLOBIN 33.4 pg (27.0-33.0); MEAN CORPUSCULAR HGB CONC 35.6 g/dl (32.0-36.5); PLATELET COUNT, AUTOMATED 226 10^3/uL (150-450); RED BLOOD COUNT 3.32 10^6/uL (4.00-5.40); WHITE BLOOD COUNT 4.2 10^3/uL (4.0-10.0)
[2018-10-03 06:45] VITALS: BP 144/78
[2018-10-03 06:52] LABS: BLOOD UREA NITROGEN 17 MG/DL (7-18); CALCIUM LEVEL 8.3 MG/DL (8.8-10.2); CARBON DIOXIDE LEVEL 27 MEQ/L (21-32); CHLORIDE LEVEL 103 MEQ/L (98-107); CREATININE FOR GFR 0.81 MG/DL (0.55-1.30); GLOMERULAR FILTRATION RATE > 60.0 (>32); GLUCOSE, FASTING 84 MG/DL (70-100); POTASSIUM SERUM 3.8 MEQ/L (3.5-5.1); SODIUM LEVEL 137 MEQ/L (136-145)
[2018-10-03] MEDS: DULoxetine 30 MG CAP (CYMBALTA) PO SCH (09:29)
[2018-10-03] MEDS: oxyBUTYnin *DITROPAN XL* 5 MG TABCR PO SCH (09:29)
[2018-10-03] MEDS: LORATADINE 10 MG TAB PO SCH (09:29)
[2018-10-03] MEDS: ASPIRIN 325 MG TAB PO SCH (09:30)
[2018-10-03] MEDS: CEFDINIR 300 MG CAP (OMNICEF) PO SCH (09:30)
[2018-10-03] MEDS: GABAPENTIN 400 MG CAP PO SCH (09:30)
[2018-10-03] MEDS: SENOKOT S TAB PO SCH (09:30)
[2018-10-03] MEDS ORDERED: LISI-538 PO (09:37)
[2018-10-03 10:00] VITALS: BP 154/85
--- NOTE | 2018-10-03 13:13 | DS.PDOC ---
Discharge Summary General Date of Admission Sep 30, 2018 at 22:03 Date of Discharge 10/03/18 Discharge Summary DISCHARGE DIAGNOSES: orthostatic hypotension hyponatremia due to dehydration dehydration recent UTI HTN Hypercholesterolemia GERD Hypothyroidism Neuropathy History of stroke Depression HOSPITAL COURSE: Hayde Pond is an 78 YO F with history of hypertension, hypothyroidism, depression who was found earlier today on the floor of her studio apartment at the [facility] living home after an unwitnessed fall. She states that she does not remember exactly what happened that led to her falling, but she denies any lightheadedness or dizziness prior to falling. She describes that she was leaving her bathroom heading back to her bed and she may have "turned too quickly" and lost her balance. As of recently, she has not felt stable on her feet and has has several falls. She does not report falling on her head and only complains of lower back pain, which is unchanged from her baseline. She states she has felt "blah" for the last couple of days, meaning she has not had an appetite for certain meals and generally has felt weak with very low energy. She says she was found to have a fever this morning, but she is unsure of how high. She has not been ill recently and denies any SOB, CP, abdominal pain, N/V or diarrhea. Of note, she was recently found to have a UTI and has been on macrobid since 09/28/2018. She denies any dysuria, but does report having difficulty starting her urinary stream.1. Recent falls and weakness: most likely from orthostatic hypotension and dehydration from recent UTI-was placed on cefdinir and discharged on macrodantin. urine cx was no growth, and neuropathy-Patient reports she feels she is is unstable on her feet -PT ordered to assess mobility-CT head negative for any acute process and no focal deficits noted on physical exam. Patient does have a history of neuropathy and parts of her feet are without sensation. This may be the etiology of her repeated falls.-Continuous tele without event-Orthostasis resolved s/p multiple 1L bolus NS-Continue Orthostatic vitals E2S-Wufd precautions. Dehydration: Patient found to have elevated CK and BUN. On UTI treatment-Repeat labs demonstrate improvement in BUN-Patient does report decreased PO intake recently- Holding HCTZ for hypertension at this time.Recent UTI on abx treatment:-Cipro changed to Cefdinir during her hospital stay, but urine cx was negative and had no growth, and she was discharged on her home dose of macrodantin. Neuropathy:- Continue Gabapentin 400 BID and 800 QHS.HTN:-Lisinopril decreased to avoid excessive hypotension-Holding HCTZ. HLD:-Continue Simvastatin. Hypothyroidism:- Continue Levothyroxine-TSH normal.. Depression: Continue Duloxetine. DVT prop w hep sc. CODE STATUS:Patient request DNR/DNI. Pt passed HSE and discharged to [facility]. DISCHARGE MEDICATIONS: Please see below. ALLERGIES: Please see below. PHYSICAL EXAMINATION ON DISCHARGE: VITAL SIGNS: Please see below. GENERAL: no respiratory distress. no use of respiratory acccessory muscles HEENT: Normocephalic, atraumatic, L eyelid discoloration CARDIOVASCULAR: RRR, no m/r/g, nml S1/S2 LUNGS: no respiratory distress. no wheezing or rales. Clear to auscultation bilaterally no adventitious breath sounds ABDOMEN:nondistended Soft, nontender, +BS, no organomegaly EXTREMITIES: no clubbing, cyanosis or edema NEUROLOGICAL: CN 2-12 intact, decreased sensation in plantar surface of feet bilaterally, no other focal deficits PSYCHIATRIC: AAOx3, normal mood, normal affect LABORATORY DATA: Please see below. TIME SPENT ON DISCHARGE: 30 minutes. Vital Signs/I&Os Vital Signs Date Time Temp Pulse Resp B/P (MAP) Pulse Ox O2 Delivery O2 Flow Rate FiO2 10/03/18 10:00 98.2 83 20 154/85 (108) 95 10/02/18 21:02 Room Air 09/30/18 22:10 2.0 I&O- Last 24 Hours up to 6 AM 10/03/18 06:00 Intake Total 3261 ml Output Total 1500 ml Balance 1761 ml Laboratory Data Labs 24H Laboratory Tests 2 10/03/18 06:15: Nucleated Red Blood Cells % (auto) 0.0, Anion Gap 7L, Glomerular Filtration Rate > 60.0, Blood Urea Nitrogen 17, Creatinine 0.81, Sodium Level 137, Potassium Level 3.8, Chloride Level 103, Carbon Dioxide Level 27, Calcium Level 8.3L CBC/BMP Laboratory Tests 10/03/18 06:15 Red Blood Count 3.32 L, Mean Corpuscular Volume 94.0, Mean Corpuscular Hemoglobin 33.4 H, Mean Corpuscular Hemoglobin Concent 35.6, Red Cell Distribution Width 13.0, Calcium Level 8.3 L Microbiology Microbiology 10/01/18 Urine Culture - Final, Complete Discharge Medications Scheduled (Restasis) 0.05 % Emu, 1 DROP OU BID, (Reported) (Metamucil Fiber) 51.7 % Kevin, 1 DOSE PO DAILY, (Reported) Aspirin (Aspirin) 325 Mg Tab, 325 MG PO DAILY, (Reported) Calcium Carbonate (Tums) 500 Mg Chw, 500 MG PO BID, (Reported) Cholecalciferol (Vitamin D3) 2,000 Unit Tab, 2,000 UNIT PO DAILY, (Reported) Duloxetine Hcl (Duloxetine HCl) 60 Mg Cap, 60 MG PO DAILY, (Reported) Fluticasone Propionate (Fluticasone Propionate) 50 Mcg/Act Spr, 2 SPRAY NARES DAILY, (Reported) Folic Acid (Folic Acid) 400 Mcg Tab, 400 MCG PO DAILY, (Reported) Gabapentin (Gabapentin) 400 Mg Cap, 800 MG PO QHS, (Reported) Gabapentin (Gabapentin) 400 Mg Cap, 400 MG PO BID, (Reported) 0900, 1400 Levothyroxine Sodium (Synthroid) 50 Mcg Tab, 50 MCG PO DAILY, (Reported) Lisinopril (Lisinopril) 20 Mg Tab, 10 MG PO QHS Loratadine (Loratadine) 10 Mg Tab, 10 MG PO DAILY, (Reported) Multivitamin Areds (Preservision Areds) 1 Tab Tab, 2 TAB PO BID, (Reported) Multivitamins (Centrum Silver) 1 Tab Tab, 1 TAB PO DAILY, (Reported) Nitrofurantoin Monohydrate Mac (Macrobid) 100 Mg Cap, 100 MG PO BID, (Reported) FOR 7 DAYS STARTING 09/28/18 Oxybutynin Chloride (Oxybutynin Chloride ER) 5 Mg Tab, 5 MG PO DAILY, (Reported) Pantoprazole Sodium Sesquihydr (Pantoprazole Sodium Dr) 20 Mg Tab, 20 MG PO BID, (Reported) Simvastatin (Zocor) 20 Mg Tab, 20 MG PO QHS, (Reported) Vitamin B Complex/Vit C (B Complex/C) 1 Tab Tab, 1 TAB PO DAILY, (Reported) Scheduled PRN (Aspercreme W/Lidocaine) 4 % Cre, 1 DOSE TOP Q6H PRN for PAIN, (Reported) APPLIES TO LOWER BACK (Guaifenesin/Dextromethorp 10-100 mg/5Ml) 1 Syp Syp, 1 DOSE PO Q4H PRN for COUGH, (Reported) (Biotene Dry Mouth Mouthwa) 1 Liq Liq, 1 DOSE MT QID PRN for DRY MOUTH, (Reported) (Ibuprofen Pm 200-38 mg) 1 Tab Tab, 1 TAB PO QHS PRN for INSOMNIA, (Reported) (Preparation H 1-0.25-14.4-15 %) 1 Cre Cre, 1 DOSE AZ QID PRN for HEMORRHOIDS, (Reported) Acetaminophen (Tylenol Extra Strength) 500 Mg Tab, 500 MG PO Q12H PRN for PAIN, (Reported) Albuterol Sulfate (Ventolin Hfa) 108 Mcg/Act Aer, 2 PUFF INH Q4H PRN for SOB/WHEEZING, (Reported) Capsaicin (Capsaicin) 0.025 % Cre, 1 DOSE TOP TID PRN for PAIN, (Reported) Carboxymethylcellulose Sodium (Refresh Tears) 0.5 % Johan, 1 DROP OU QID PRN for DRY EYES, (Reported) Docusate Sodium (Colace) 100 Mg Cap, 100 MG PO BID PRN for CONSTIPATION, (Reported) Ibuprofen (Ibuprofen) 200 Mg Tab, 200 MG PO Q6H PRN for PAIN, (Reported) Lysine HCl (l-Lysine) 1,000 Mg Tab, 1,000 MG PO QID PRN for COLD SORE, (Reported) Meclizine HCl (Meclizine HCl) 25 Mg Tab, 25 MG PO Q6H PRN for DIZZINESS, (Reported) Mupirocin (Mupirocin) 1 Dose/30 Gm Cream, 1 DOSE TOP BID PRN for RASH, (Reported) DIRECTED FOR NASAL RASH Nystatin (Nystatin Powder) 100,000 Unit/Gm Pow, 1 DOSE TOP BID PRN for RASH, (Reported) APPLY TO AFFECTED AREA UNDER BREASTS AND IN GROIN AREA Simethicone (Simethicone) 80 Mg Chew, 80 MG PO QID PRN for GAS PAIN, (Reported) Sodium Chloride (Sodium Chloride Nasal [place]) 0.65 % Spr, 2 SPRAY NARES Q6H PRN for NASAL DRYNESS, (Reported) EACH NOSTRIL Allergies Coded Allergies: TAPE (Verified Adverse Reaction, Intermediate, RED AREA, TAKES SKIN OFF, 07/23/15) AMBROSIO WALKER MD Oct 03, 2018 13:05
[2018-10-12] MEDS ORDERED: LISI-538 PO (17:12)
[2018-10-17] MEDS ORDERED: NORCOTAB PO (08:22)
[2018-10-17] MEDS ORDERED: DICL13PA TOP (08:22)
[2018-10-17] MEDS ORDERED: LISI-542 PO (08:22)
[2018-10-17] MEDS ORDERED: LEVO125T4 PO (08:22)
== END 2018-10-03 12:30 ==
LOC: M ED 22:02 → M ED INP 22:03 → M MSPAV 10-01 04:35
PROVIDERS: ADMIT Internal Medicine; ATTEND General Practice
DX: I95.1 Orthostatic hypotension (principal); E87.1 Hypo-osmolality and hyponatremia; E86.0 Dehydration; N39.0 Urinary tract infection, site not specified; I10 Essential (primary) hypertension; E78.00 Pure hypercholesterolemia, unspecified; K21.9 Gastro-esophageal reflux disease without esophagitis; E03.9 Hypothyroidism, unspecified; G62.9 Polyneuropathy, unspecified; Z86.73 Personal history of transient ischemic attack (TIA), and cerebral infarction without residual deficits; F32.9 Major depressive disorder, single episode, unspecified; M54.9 Dorsalgia, unspecified; R29.6 Repeated falls; R50.9 Fever, unspecified; R26.81 Unsteadiness on feet; Z79.899 Other long term (current) drug therapy; Z79.82 Long term (current) use of aspirin; Z79.2 Long term (current) use of antibiotics; Z91.048 Other nonmedicinal substance allergy status; Z87.891 Personal history of nicotine dependence
CPT/HCPCS: 36415; 70450; 71045; 80048; 81001; 82550; 82553; 84439; 84443; 84484; 85025; 85027; 87086; 93005; 93041; 94760; 96360; 96361; 96372; 97116; 97161; 97530; 99285; G0378; G8978; G8979; G8980

== ENCOUNTER 2018-10-12 16:02 | Inpatient (IN) | payer MEDICARE, MEDICAID ==
[2018-10-12 16:22] LABS: BEDSIDE GLUCOSE 101 MG/DL (83-110)
[2018-10-12 16:32] LABS: BASO % 0.2 % (0.0-1.0); EOS # 0.2 10^3/uL (0.0-0.50); HEMATOCRIT 37.3 % (36.0-47.0); HEMOGLOBIN 12.7 g/dl (12.0-15.5); IMMATURE GRANULOCYTE % 0.5 % (0-3.0); LYMPH # 0.4 10^3/uL (1.5-4.5); LYMPH % 4.1 % (24.0-44.0); MEAN CORPUSCULAR VOLUME 96.9 fl (80.0-96.0); MONO # 0.2 10^3/uL (0.0-0.8); MONO % 1.6 % (0.0-5.0); NEUTROPHILS # 9.7 10^3/uL (1.8-7.7); NEUTROPHILS % 91.6 % (36.0-66.0); PLATELET COUNT, AUTOMATED 521 10^3/uL (150-450); RED BLOOD COUNT 3.85 10^6/uL (4.00-5.40); RED CELL DISTRIBUTION WIDTH 13.3 % (11.5-14.5); WHITE BLOOD COUNT 10.6 10^3/uL (4.0-10.0)
[2018-10-12] MEDS: NS 1,000 ML IV ×2 (16:45→21:57)
[2018-10-12 16:49] LABS: KETONE, URINE AUTO RFX NEGATIVE (NEGATIVE); LEUKOCYTE ESTERASE UR AUTO RFX NEGATIVE (NEGATIVE); MUCUS, URINE RFX SMALL (NEGATIVE); NITRITE, URINE AUTO RFX NEGATIVE (NEGATIVE); RBC, URINE AUTO RFX 0 /HPF (0-3); SPECIFIC GRAVITY UR AUTO RFX 1.009 (1.002-1.035); SQUAM EPITHELIAL CELL UR AURFX 0 /HPF (0-6); WBC, URINE AUTO RFX 3 /HPF (0-3)
[2018-10-12 16:50] LABS: VENOUS BASE EXCESS -0.9 (-2.0-2.0); VENOUS HCO3 25.4 MEQ/L (23.0-27.0); VENOUS O2 SATURATION 60.3 % (60.0-80.0); VENOUS PARTIAL PRESSURE CO2 48.1 mmHg (38.0-50.0); VENOUS PARTIAL PRESSURE O2 33.7 mmHg (30.0-50.0); VENOUS STANDARD HCO3 22.9 MEQ/L; VENOUS TOTAL CO2 26.8 MEQ/L (24.0-28.0)
[2018-10-12 16:59] LABS: ALBUMIN 3.2 GM/DL (3.2-5.2); ALBUMIN/GLOBULIN RATIO 0.89 (1.00-1.93); ALKALINE PHOSPHATASE 154 U/L (45-117); ALT/SGPT 57 U/L (12-78); ANION GAP 11 MEQ/L (8-16); AST/SGOT 96 U/L (7-37); BILIRUBIN,DIRECT 0.2 MG/DL (0.0-0.2); BILIRUBIN,TOTAL 0.4 MG/DL (0.2-1.0); BLOOD UREA NITROGEN 19 MG/DL (7-18); CALCIUM LEVEL 8.8 MG/DL (8.8-10.2); CARBON DIOXIDE LEVEL 25 MEQ/L (21-32); CHLORIDE LEVEL 103 MEQ/L (98-107); CPK CREATINE PHOSPHOKINASE 39 U/L (26-192); CREATININE FOR GFR 1.27 MG/DL (0.55-1.30); GLOMERULAR FILTRATION RATE 43.1 (>32); GLUCOSE, FASTING 101 MG/DL (70-100); MB/CK RELATIVE INDEX 3.59 (< OR =4); POTASSIUM SERUM 4.2 MEQ/L (3.5-5.1); SODIUM LEVEL 139 MEQ/L (136-145); TOTAL PROTEIN 6.8 GM/DL (6.4-8.2); TROPONIN I < 0.02 NG/ML (< 0.10)
[2018-10-12 17:14] LABS: AMMONIA 23 uMOL/L (<32)
[2018-10-12] MEDS: PIPERACILLIN/TAZOBACTAM SOD 3.375 GM in D5W MINI-BAG PLUS 50 ML IV (17:39)
[2018-10-12] MEDS: IBUPROFEN 600 MG TAB PO (17:41)
[2018-10-12] MEDS: VANCOMYCIN HCL 1,000 MG, VIAL MATE ADAPTER 1 EACH in D5W 250 ML IV (18:50)
[2018-10-12] MEDS ORDERED: NYSTATIN 100,000 UNITS/GM TOPICAL PWD 15 GM TOP (19:45)
[2018-10-12] MEDS ORDERED: MECLIZINE 25 MG TABLET PO (19:45)
[2018-10-12] MEDS ORDERED: NS 1,000 ML IV (19:45)
[2018-10-12] MEDS ORDERED: DOCUSATE SODIUM 100 MG CAP PO (19:45)
[2018-10-12] MEDS ORDERED: SIMETHICONE 80 MG CHEW TAB PO (19:45)
[2018-10-12 19:48] LABS: C REACTIVE PROTEIN QUANTITATIV 0.47 MG/DL (0.00-0.30)
[2018-10-12 20:29] LABS: ERYTHROCYTE SEDIMENTATION RATE 59 mm/hr (0-30)
[2018-10-12] MEDS ORDERED: cefTRIAXone SOD 1 GM in D5W MINI-BAG PLUS 50 ML IV (20:30)
[2018-10-12] MEDS ORDERED: NITROFURANTOIN (MACROBID) 100 MG CAP PO (21:00)
[2018-10-12] MEDS ORDERED: GABAPENTIN 400 MG CAP PO (21:00)
[2018-10-12 21:38] LABS: TROPONIN I < 0.02 NG/ML (< 0.10)
[2018-10-12] MEDS: LISINOPRIL 20 MG TAB PO (21:40)
[2018-10-12] MEDS: GABAPENTIN 300 MG CAP PO (21:45)
[2018-10-12] MEDS: CALCIUM CARBONATE 500 MG CHEW U/D PO (21:45)
[2018-10-12] MEDS: cefTRIAXone SOD 1 GM in D5W MINI-BAG PLUS 50 ML IV ×2 (21:45→21:48)
[2018-10-12] MEDS: SIMVASTATIN 20 MG TAB PO (21:45)
[2018-10-13] MEDS: IBUPROFEN 600 MG TAB PO ×3 (01:29→17:48)
[2018-10-13] MEDS: LEVOTHYROXINE 62.5MCG PER 1/2 TAB (0.0625MG) PO (06:16)
[2018-10-13] MEDS: HEPARIN SOD (PORCINE) 5000 UNITS/ML VIAL SC ×3 (06:22→21:19)
[2018-10-13 06:35] LABS: HEMATOCRIT 31.1 % (36.0-47.0); MEAN CORPUSCULAR HEMOGLOBIN 32.9 pg (27.0-33.0); MEAN CORPUSCULAR HGB CONC 33.4 g/dl (32.0-36.5); MEAN CORPUSCULAR VOLUME 98.4 fl (80.0-96.0); PLATELET COUNT, AUTOMATED 433 10^3/uL (150-450); RED BLOOD COUNT 3.16 10^6/uL (4.00-5.40); RED CELL DISTRIBUTION WIDTH 13.2 % (11.5-14.5); WHITE BLOOD COUNT 13.3 10^3/uL (4.0-10.0)
[2018-10-13 06:47] LABS: HEMOGLOBIN 10.4 g/dl (12.0-15.5)
[2018-10-13 07:00] LABS: ANION GAP 8 MEQ/L (8-16); BLOOD UREA NITROGEN 24 MG/DL (7-18); CALCIUM LEVEL 8.6 MG/DL (8.8-10.2); CARBON DIOXIDE LEVEL 23 MEQ/L (21-32); CHLORIDE LEVEL 107 MEQ/L (98-107); CREATININE FOR GFR 1.11 MG/DL (0.55-1.30); GLOMERULAR FILTRATION RATE 50.3 (>32); GLUCOSE, FASTING 100 MG/DL (70-100); POTASSIUM SERUM 4.4 MEQ/L (3.5-5.1); SODIUM LEVEL 138 MEQ/L (136-145)
[2018-10-13] MEDS: ASPIRIN 325 MG TAB PO (08:20)
[2018-10-13] MEDS: DULoxetine 30 MG CAP (CYMBALTA) PO (08:21)
[2018-10-13] MEDS: CALCIUM CARBONATE 500 MG CHEW U/D PO ×2 (08:21→20:37)
[2018-10-13] MEDS: VITAMIN D 1,000 INTERNATIONAL UNITS TABLET PO (08:21)
[2018-10-13] MEDS: MULTIVITAMINS/MINERALS THERAP 1 TAB PO (08:21)
[2018-10-13] MEDS: oxyBUTYnin *DITROPAN XL* 5 MG TABCR PO (08:22)
[2018-10-13] MEDS: GABAPENTIN 300 MG CAP PO ×3 (08:29→20:37)
[2018-10-13] MEDS: FLUTICASONE PROP 0.05% NASAL SPRAY 16 GM (FLONASE) NARES (08:29)
[2018-10-13] MEDS ORDERED: GABAPENTIN 400 MG CAP PO ×2 (09:00)
[2018-10-13] MEDS: VITAMIN B COMPLEX/VIT C CAP PO (09:42)
[2018-10-13] MEDS: CAPSAICIN 0.025% CR 60 GM TOP (13:00)
[2018-10-13] MEDS: SIMVASTATIN 20 MG TAB PO (20:37)
[2018-10-13] MEDS: cefTRIAXone SOD 1 GM in D5W MINI-BAG PLUS 50 ML IV (20:37)
[2018-10-13] MEDS ORDERED: LISINOPRIL 20 MG TAB PO (21:00)
[2018-10-14] MEDS: IBUPROFEN 600 MG TAB PO ×2 (05:38→20:12)
[2018-10-14] MEDS: LEVOTHYROXINE 62.5MCG PER 1/2 TAB (0.0625MG) PO (05:38)
[2018-10-14] MEDS: HEPARIN SOD (PORCINE) 5000 UNITS/ML VIAL SC ×3 (05:38→21:13)
[2018-10-14 06:23] LABS: HEMATOCRIT 29.7 % (36.0-47.0); HEMOGLOBIN 10.2 g/dl (12.0-15.5); MEAN CORPUSCULAR HEMOGLOBIN 32.9 pg (27.0-33.0); MEAN CORPUSCULAR HGB CONC 34.3 g/dl (32.0-36.5); MEAN CORPUSCULAR VOLUME 95.8 fl (80.0-96.0); PLATELET COUNT, AUTOMATED 429 10^3/uL (150-450); RED CELL DISTRIBUTION WIDTH 13.4 % (11.5-14.5); WHITE BLOOD COUNT 9.7 10^3/uL (4.0-10.0)
[2018-10-14 06:46] LABS: ANION GAP 7 MEQ/L (8-16); BLOOD UREA NITROGEN 16 MG/DL (7-18); CALCIUM LEVEL 9.1 MG/DL (8.8-10.2); CARBON DIOXIDE LEVEL 25 MEQ/L (21-32); CHLORIDE LEVEL 106 MEQ/L (98-107); CREATININE FOR GFR 0.86 MG/DL (0.55-1.30); GLOMERULAR FILTRATION RATE > 60.0 (>32); GLUCOSE, FASTING 90 MG/DL (70-100); POTASSIUM SERUM 4.2 MEQ/L (3.5-5.1); SODIUM LEVEL 138 MEQ/L (136-145)
[2018-10-14] MEDS: FLUTICASONE PROP 0.05% NASAL SPRAY 16 GM (FLONASE) NARES (10:57)
[2018-10-14] MEDS: VITAMIN B COMPLEX/VIT C CAP PO (10:57)
[2018-10-14] MEDS: MULTIVITAMINS/MINERALS THERAP 1 TAB PO (10:58)
[2018-10-14] MEDS: VITAMIN D 1,000 INTERNATIONAL UNITS TABLET PO (10:58)
[2018-10-14] MEDS: CALCIUM CARBONATE 500 MG CHEW U/D PO ×2 (10:59→20:11)
[2018-10-14] MEDS: GABAPENTIN 300 MG CAP PO ×3 (10:59→20:11)
[2018-10-14] MEDS: oxyBUTYnin *DITROPAN XL* 5 MG TABCR PO (11:00)
[2018-10-14] MEDS: ASPIRIN 325 MG TAB PO (11:00)
[2018-10-14] MEDS: DULoxetine 30 MG CAP (CYMBALTA) PO (11:00)
[2018-10-14] MEDS: LISINOPRIL 5 MG TAB PO (11:03)
[2018-10-14] MEDS: PERCOCET 5MG/325MG TAB PO (11:09)
[2018-10-14] MEDS: ONDANSETRON 4MG/2ML VIAL (J2405) IV (13:53)
[2018-10-14] MEDS: NORCO, ANEXSIA 5/325MG TABLET (HYDROcodone/ACETAMINOPHEN) PO (17:55)
[2018-10-14] MEDS: cefTRIAXone SOD 1 GM in D5W MINI-BAG PLUS 50 ML IV (20:12)
[2018-10-14] MEDS: SIMVASTATIN 20 MG TAB PO (21:12)
[2018-10-15 05:51] LABS: ANION GAP 5 MEQ/L (8-16); BLOOD UREA NITROGEN 18 MG/DL (7-18); CALCIUM LEVEL 9.2 MG/DL (8.8-10.2); CARBON DIOXIDE LEVEL 27 MEQ/L (21-32); CHLORIDE LEVEL 106 MEQ/L (98-107); GLOMERULAR FILTRATION RATE > 60.0 (>32); GLUCOSE, FASTING 87 MG/DL (70-100); POTASSIUM SERUM 4.3 MEQ/L (3.5-5.1); SODIUM LEVEL 138 MEQ/L (136-145)
[2018-10-15] MEDS: HEPARIN SOD (PORCINE) 5000 UNITS/ML VIAL SC ×3 (05:57→21:56)
[2018-10-15] MEDS: LEVOTHYROXINE 62.5MCG PER 1/2 TAB (0.0625MG) PO (05:58)
[2018-10-15] MEDS: NORCO, ANEXSIA 5/325MG TABLET (HYDROcodone/ACETAMINOPHEN) PO (05:58)
[2018-10-15 06:16] LABS: HEMATOCRIT 30.8 % (36.0-47.0); HEMOGLOBIN 10.4 g/dl (12.0-15.5); MEAN CORPUSCULAR HEMOGLOBIN 32.6 pg (27.0-33.0); MEAN CORPUSCULAR HGB CONC 33.8 g/dl (32.0-36.5); MEAN CORPUSCULAR VOLUME 96.6 fl (80.0-96.0); PLATELET COUNT, AUTOMATED 460 10^3/uL (150-450); RED BLOOD COUNT 3.19 10^6/uL (4.00-5.40); RED CELL DISTRIBUTION WIDTH 13.4 % (11.5-14.5)
[2018-10-15] MEDS: VITAMIN B COMPLEX/VIT C CAP PO (09:46)
[2018-10-15] MEDS: MULTIVITAMINS/MINERALS THERAP 1 TAB PO (09:46)
[2018-10-15] MEDS: GABAPENTIN 300 MG CAP PO ×3 (09:46→20:44)
[2018-10-15] MEDS: DULoxetine 30 MG CAP (CYMBALTA) PO (09:46)
[2018-10-15] MEDS: oxyBUTYnin *DITROPAN XL* 5 MG TABCR PO (09:46)
[2018-10-15] MEDS: VITAMIN D 1,000 INTERNATIONAL UNITS TABLET PO (09:46)
[2018-10-15] MEDS: CALCIUM CARBONATE 500 MG CHEW U/D PO ×2 (09:46→20:44)
[2018-10-15] MEDS: ASPIRIN 325 MG TAB PO (09:46)
[2018-10-15] MEDS: LISINOPRIL 5 MG TAB PO (09:47)
[2018-10-15] MEDS: FLUTICASONE PROP 0.05% NASAL SPRAY 16 GM (FLONASE) NARES (09:48)
[2018-10-15] MEDS: IBUPROFEN 600 MG TAB PO (14:13)
[2018-10-15] MEDS: SIMVASTATIN 20 MG TAB PO (20:44)
[2018-10-16] MEDS: IBUPROFEN 600 MG TAB PO ×2 (03:02→20:05)
[2018-10-16] MEDS: LEVOTHYROXINE 62.5MCG PER 1/2 TAB (0.0625MG) PO (05:50)
[2018-10-16] MEDS: HEPARIN SOD (PORCINE) 5000 UNITS/ML VIAL SC ×3 (05:50→23:00)
[2018-10-16 05:57] LABS: HEMATOCRIT 33.4 % (36.0-47.0); HEMOGLOBIN 11.4 g/dl (12.0-15.5); MEAN CORPUSCULAR HGB CONC 34.1 g/dl (32.0-36.5); MEAN CORPUSCULAR VOLUME 96.8 fl (80.0-96.0); PLATELET COUNT, AUTOMATED 465 10^3/uL (150-450); RED BLOOD COUNT 3.45 10^6/uL (4.00-5.40)
[2018-10-16 06:23] LABS: ANION GAP 7 MEQ/L (8-16); BLOOD UREA NITROGEN 18 MG/DL (7-18); CALCIUM LEVEL 9.5 MG/DL (8.8-10.2); CARBON DIOXIDE LEVEL 29 MEQ/L (21-32); CHLORIDE LEVEL 101 MEQ/L (98-107); CREATININE FOR GFR 0.94 MG/DL (0.55-1.30); GLOMERULAR FILTRATION RATE > 60.0 (>32); GLUCOSE, FASTING 98 MG/DL (70-100); POTASSIUM SERUM 4.9 MEQ/L (3.5-5.1); SODIUM LEVEL 137 MEQ/L (136-145)
[2018-10-16] MEDS: FLUTICASONE PROP 0.05% NASAL SPRAY 16 GM (FLONASE) NARES (09:20)
[2018-10-16] MEDS: DICLOFENAC EPOLAMINE 1.3 % PATCH TOP ×2 (09:21→20:05)
[2018-10-16] MEDS: MULTIVITAMINS/MINERALS THERAP 1 TAB PO (09:22)
[2018-10-16] MEDS: ASPIRIN 325 MG TAB PO (09:22)
[2018-10-16] MEDS: CALCIUM CARBONATE 500 MG CHEW U/D PO ×2 (09:22→20:04)
[2018-10-16] MEDS: DULoxetine 30 MG CAP (CYMBALTA) PO (09:22)
[2018-10-16] MEDS: VITAMIN B COMPLEX/VIT C CAP PO (09:22)
[2018-10-16] MEDS: LISINOPRIL 5 MG TAB PO (09:22)
[2018-10-16] MEDS: GABAPENTIN 300 MG CAP PO ×3 (09:22→20:04)
[2018-10-16] MEDS: VITAMIN D 1,000 INTERNATIONAL UNITS TABLET PO (09:22)
[2018-10-16] MEDS: oxyBUTYnin *DITROPAN XL* 5 MG TABCR PO (09:23)
[2018-10-16] MEDS: SIMVASTATIN 20 MG TAB PO (20:04)
[2018-10-17] MEDS: HEPARIN SOD (PORCINE) 5000 UNITS/ML VIAL SC (05:30)
[2018-10-17] MEDS: LEVOTHYROXINE 62.5MCG PER 1/2 TAB (0.0625MG) PO (05:32)
[2018-10-17 05:52] LABS: HEMATOCRIT 33.8 % (36.0-47.0); HEMOGLOBIN 11.6 g/dl (12.0-15.5); MEAN CORPUSCULAR HGB CONC 34.3 g/dl (32.0-36.5); MEAN CORPUSCULAR VOLUME 96.3 fl (80.0-96.0); PLATELET COUNT, AUTOMATED 501 10^3/uL (150-450); RED BLOOD COUNT 3.51 10^6/uL (4.00-5.40); RED CELL DISTRIBUTION WIDTH 12.9 % (11.5-14.5); WHITE BLOOD COUNT 5.8 10^3/uL (4.0-10.0)
[2018-10-17 06:19] LABS: ANION GAP 8 MEQ/L (8-16); BLOOD UREA NITROGEN 17 MG/DL (7-18); CALCIUM LEVEL 8.9 MG/DL (8.8-10.2); CARBON DIOXIDE LEVEL 26 MEQ/L (21-32); CHLORIDE LEVEL 105 MEQ/L (98-107); CREATININE FOR GFR 0.93 MG/DL (0.55-1.30); GLOMERULAR FILTRATION RATE > 60.0 (>32); GLUCOSE, FASTING 97 MG/DL (70-100); POTASSIUM SERUM 4.3 MEQ/L (3.5-5.1); SODIUM LEVEL 139 MEQ/L (136-145)
[2018-10-17] MEDS: VITAMIN B COMPLEX/VIT C CAP PO (09:22)
[2018-10-17] MEDS: ASPIRIN 325 MG TAB PO (09:22)
[2018-10-17] MEDS: MOM 30ML SUSPENSION UDC PO (09:23)
[2018-10-17] MEDS: GABAPENTIN 300 MG CAP PO (09:23)
[2018-10-17] MEDS: DICLOFENAC EPOLAMINE 1.3 % PATCH TOP (09:23)
[2018-10-17] MEDS: VITAMIN D 1,000 INTERNATIONAL UNITS TABLET PO (09:23)
[2018-10-17] MEDS: DULoxetine 30 MG CAP (CYMBALTA) PO (09:23)
[2018-10-17] MEDS: SENOKOT S TAB PO (09:24)
[2018-10-17] MEDS: MULTIVITAMINS/MINERALS THERAP 1 TAB PO (09:24)
[2018-10-17] MEDS: oxyBUTYnin *DITROPAN XL* 5 MG TABCR PO (09:24)
[2018-10-17] MEDS: FLUTICASONE PROP 0.05% NASAL SPRAY 16 GM (FLONASE) NARES (09:25)
[2018-10-17] MEDS: CALCIUM CARBONATE 500 MG CHEW U/D PO (09:25)
[2018-10-17] MEDS: LISINOPRIL 5 MG TAB PO (09:25)
[2018-10-17] MEDS ORDERED: FLEET ENEMA PR (16:00)
[2018-10-17] MEDS ORDERED: MOM 30ML SUSPENSION UDC PO (21:00)
[2018-10-18] MEDS ORDERED: FLEET ENEMA PR (09:00)
== END 2018-10-17 11:36 | DRG 315 ==
LOC: M ED 16:02 → M ED INP 19:30 → M MSPAV 23:14
DX: I95.9 Hypotension, unspecified (principal); G93.40 Encephalopathy, unspecified; R55 Syncope and collapse; I10 Essential (primary) hypertension; E78.5 Hyperlipidemia, unspecified; K21.9 Gastro-esophageal reflux disease without esophagitis; Z86.73 Personal history of transient ischemic attack (TIA), and cerebral infarction without residual deficits; Z79.82 Long term (current) use of aspirin; Z79.899 Other long term (current) drug therapy; Z87.891 Personal history of nicotine dependence; G62.9 Polyneuropathy, unspecified; F32.9 Major depressive disorder, single episode, unspecified; G47.33 Obstructive sleep apnea (adult) (pediatric); M54.5 Low back pain; E66.9 Obesity, unspecified; Z68.31 Body mass index [BMI] 31.0-31.9, adult; M19.011 Primary osteoarthritis, right shoulder; M19.012 Primary osteoarthritis, left shoulder

== ENCOUNTER → 2018-12-12 | Outpatient (REF) | payer MEDICARE, MEDICAID, OTHER ==
[~2018-12-12] MED LIST changes: -/AMLO25TA PO; -/CELE20CA PO; -/DULO30CA PO; +ASPI-1 PO; -ASPI325T PO; +BIOTLIQ3 MT; +CAPS0.022 TOP; +CELE1CAP4 PO; +COLA100C5 PO; +DICL13PA TOP; +DULO1CAP3 PO; -DULO30CA PO; +DULO30CA9 PO; +FLUTISP; -FLUTISP NARES; +GABA-845 PO; +GUAI1SYP8 PO; +HYDR-3715 PO; +HYDR25TAB PO; +LEVO125T4 PO; +LEVO125T41 PO; +LISI-538 PO; +LISI-542 PO; +LISI40TA52 PO; -LISI40TAB PO; +LORA-243 PO; +LOSA50TA88 PO; +MACR100C43 PO; +MECL-68 PO; +MILKSUS5 PO; +MIRA3350 PO; +MUPI30CR NARES; +NORV2TAB PO; +NYST1POW9 TOP; +OXYB5TAB PO; +OXYC1TAB23 PO; +PANT20TA51 PO; -PERCOCET PO; +PREPCRE PR; +SIME80TA PO; +SODI0.65 NARES; +TAMI30CA PO; +TYLE500T78 PO; +VENTAER INH; +VITA100018 PO; -VITA100072 PO; +VOLT1GEL15 TOP; +[UNRECOGNIZED DRUG - CODE] PO; +[UNRECOGNIZED DRUG - CODE] PO
[2018-12-12 10:20] LABS: BASO # 0.1 10^3/uL (0.0-0.2); BASO % 1.1 % (0.0-1.0); EOS # 0.4 10^3/uL (0.0-0.50); EOS % 7.7 % (0.0-3.0); HEMATOCRIT 35.7 % (36.0-47.0); HEMOGLOBIN 12.1 g/dl (12.0-15.5); LYMPH # 1.4 10^3/uL (1.5-4.5); LYMPH % 31.6 % (24.0-44.0); MEAN CORPUSCULAR HEMOGLOBIN 32.4 pg (27.0-33.0); MEAN CORPUSCULAR HGB CONC 33.9 g/dl (32.0-36.5); MEAN CORPUSCULAR VOLUME 95.5 fl (80.0-96.0); MONO # 0.5 10^3/uL (0.0-0.8); MONO % 10.4 % (0.0-5.0); NEUTROPHILS # 2.2 10^3/uL (1.8-7.7); PLATELET COUNT, AUTOMATED 268 10^3/uL (150-450); RED BLOOD COUNT 3.74 10^6/uL (4.00-5.40); WHITE BLOOD COUNT 4.5 10^3/uL (4.0-10.0)
[2018-12-12 10:37] LABS: ALBUMIN 3.8 GM/DL (3.2-5.2); ALT/SGPT 22 U/L (12-78); BILIRUBIN,TOTAL 0.4 MG/DL (0.2-1.0); BLOOD UREA NITROGEN 19 MG/DL (7-18); CALCIUM LEVEL 9.1 MG/DL (8.8-10.2); CARBON DIOXIDE LEVEL 25 MEQ/L (21-32); CHLORIDE LEVEL 105 MEQ/L (98-107); CHOLESTEROL LEVEL 144 MG/DL (<200); CREATININE FOR GFR 0.95 MG/DL (0.55-1.30); GLOMERULAR FILTRATION RATE > 60.0 (>32); GLUCOSE, FASTING 92 MG/DL (70-100); HDL CHOLESTEROL 64 MG/DL (>40); LDL CHOLESTEROL 60 MG/DL (<100); MAGNESIUM LEVEL 2.2 MG/DL (1.8-2.4); NON-HDL-C 80 MG/DL; POTASSIUM SERUM 4.3 MEQ/L (3.5-5.1); SODIUM LEVEL 139 MEQ/L (136-145); THYROID STIMULATING HORMONE 0.781 uIU/ML (0.358-3.740); TOTAL PROTEIN 7.1 GM/DL (6.4-8.2); TRIGLYCERIDES LEVEL 99 MG/DL (<150)
== END ==
PROVIDERS: ATTEND Internal Medicine
DX: I10 Essential (primary) hypertension (principal); R53.83 Other fatigue; E78.00 Pure hypercholesterolemia, unspecified; N39.9 Disorder of urinary system, unspecified; E83.42 Hypomagnesemia

== ENCOUNTER 2018-12-27 08:28 | Emergency (ER) | payer MEDICARE, MEDICAID, OTHER ==
[~2018-12-27 08:28] MED LIST changes: +/AMLO25TA PO; +/CELE20CA PO; +/DULO30CA PO; -ASPI-1 PO; +ASPI325T PO; -CELE1CAP4 PO; +DULO30CA PO; -DULO30CA9 PO; -FLUTISP; +FLUTISP NARES; -HYDR-3715 PO; -LEVO125T41 PO; -LISI40TA52 PO; +LISI40TAB PO; -LOSA50TA88 PO; -MILKSUS5 PO; -MIRA3350 PO; +NORCOTAB PO; -NORV2TAB PO; -OXYC1TAB23 PO; +PERCOCET PO; -TAMI30CA PO; -VITA100018 PO; +VITA100072 PO; -VOLT1GEL15 TOP
[2018-12-27] MEDS ORDERED: LOSA50TA88 PO (08:54)
[2018-12-27] MEDS ORDERED: NORCO, ANEXSIA 5/325MG TABLET (HYDROcodone/ACETAMINOPHEN) PO ONE (09:15)
--- NOTE | 2018-12-27 10:00 | REP ---
Unilateral right ribs PA chest five views History: Posterior pain [facility]: 10/12/2018 The right hemidiaphragm. Linear densities are present in the right lower lobe consistent with atelectasis or scar. The left lung is clear. The heart is normal in size. The pulmonary vasculature is normal in appearance. There are fractures of the right eighth and ninth ribs. Impression: 1. Right lower lobe atelectasis or scar. 2. Fractures of the right eighth and ninth ribs. Electronically Signed by Oumar Hoang MD 12/27/2018 09:51 A
[2018-12-27] MEDS ORDERED: MIRA3350 PO (10:18)
[2018-12-27 12:33] VITALS: BP 174/93
== END 2018-12-27 12:35 | disposition home or self-care (01) ==
LOC: M ED 08:28 → EDBD 08:28 → M ED 12:35
DX: S22.41XA Multiple fractures of ribs, right side, initial encounter for closed fracture (principal); W01.198A Fall on same level from slipping, tripping and stumbling with subsequent striking against other object, initial encounter; Y92.013 Bedroom of single-family (private) house as the place of occurrence of the external cause; I10 Essential (primary) hypertension; K21.9 Gastro-esophageal reflux disease without esophagitis; F33.9 Major depressive disorder, recurrent, unspecified; Z79.899 Other long term (current) drug therapy; Z79.82 Long term (current) use of aspirin; Z91.048 Other nonmedicinal substance allergy status

== ENCOUNTER 2019-01-29 10:10 | Emergency (ER) | payer MEDICARE, MEDICAID ==
[~2019-01-29] VITALS: Ht 160 cm; Wt 74.5 kg
[~2019-01-29 10:10] MED LIST changes: -/AMLO25TA PO; -/CELE20CA PO; -/DULO30CA PO; +ASPI-1 PO; -ASPI325T PO; +CELE1CAP4 PO; -DULO30CA PO; +DULO30CA9 PO; +FLUTISP; -FLUTISP NARES; +HYDR-3715 PO; +LISI40TA52 PO; -LISI40TAB PO; +LOSA50TA88 PO; +MIRA3350 PO; -NORCOTAB PO; +NORV2TAB PO; +OXYC1TAB23 PO; -PERCOCET PO; +VITA100018 PO; -VITA100072 PO
[2019-01-29] MEDS ORDERED: ACETAMINOPHEN TAB 650MG DOSE (2X325MG) PO ONE (10:30)
[2019-01-29 10:59] LABS: BASO % 0.7 % (0.0-1.0); EOS # 0.2 10^3/uL (0.0-0.50); EOS % 3.5 % (0.0-3.0); HEMATOCRIT 35.2 % (36.0-47.0); HEMOGLOBIN 11.9 g/dl (12.0-15.5); LYMPH # 0.7 10^3/uL (1.5-4.5); LYMPH % 16.6 % (24.0-44.0); MEAN CORPUSCULAR HGB CONC 33.8 g/dl (32.0-36.5); MEAN CORPUSCULAR VOLUME 94.6 fl (80.0-96.0); MONO # 0.7 10^3/uL (0.0-0.8); MONO % 15.7 % (0.0-5.0); NEUTROPHILS # 2.7 10^3/uL (1.8-7.7); NEUTROPHILS % 63.3 % (36.0-66.0); PLATELET COUNT, AUTOMATED 224 10^3/uL (150-450); RED BLOOD COUNT 3.72 10^6/uL (4.00-5.40); WHITE BLOOD COUNT 4.3 10^3/uL (4.0-10.0)
[2019-01-29] MEDS ORDERED: MILKSUS5 PO (11:13)
[2019-01-29] MEDS ORDERED: MIRA3350 PO (11:13)
[2019-01-29] MEDS ORDERED: VOLT1GEL15 TOP (11:13)
[2019-01-29] MEDS ORDERED: LEVO125T41 PO (11:13)
[2019-01-29] MEDS ORDERED: HYDR-3713 PO (11:13)
[2019-01-29 11:19] LABS: BLOOD UREA NITROGEN 16 MG/DL (7-18); CALCIUM LEVEL 8.6 MG/DL (8.8-10.2); CARBON DIOXIDE LEVEL 28 MEQ/L (21-32); CHLORIDE LEVEL 102 MEQ/L (98-107); CREATININE FOR GFR 0.87 MG/DL (0.55-1.30); GLOMERULAR FILTRATION RATE > 60.0 (>32); GLUCOSE, FASTING 90 MG/DL (70-100); POTASSIUM SERUM 3.8 MEQ/L (3.5-5.1); SODIUM LEVEL 137 MEQ/L (136-145)
[2019-01-29 11:22] LABS: INFLUENZA A AMPLIFICATION POSITIVE (NEGATIVE); INFLUENZA B AMPLIFICATION NEGATIVE (NEGATIVE)
--- NOTE | 2019-01-29 11:34 | REP ---
CHEST, TWO VIEWS: Two views of the chest are performed and compared to prior studies, most recent of which is 12/27/2018. There is moderate elevation of the right hemidiaphragm which has mildly progressively worsened since prior two view chest 07/21/2017. There are band like opacities in the right lung base better seen on the lateral view. These probably represent atelectatic changes but mild superimposed infiltrate cannot be excluded. Left lung demonstrates no infiltrate. Heart is normal in size. Mediastinal silhouette is unchanged. IMPRESSION: Moderate dilatation of right hemidiaphragm with band like opacities in the right lung base better seen on the lateral view. These probably represent atelectatic changes in the right lung base but some degree of superimposed infiltrate cannot be excluded. Electronically Signed by Ad Swartz MD 01/29/2019 02:47 P
[2019-01-29] MEDS ORDERED: TAMI30CA PO (11:40)
[2019-01-29] MEDS ORDERED: OSELTAMIVIR PHOSPHATE 75 MG CAP (TAMIFLU) PO ONE (11:45)
[2019-01-29 14:02] VITALS: BP 161/74
== END 2019-01-29 14:10 | disposition home or self-care (01) ==
LOC: EDSEX 10:10 → EDBD 10:10 → M ED 10:10
DX: J09.X2 Influenza due to identified novel influenza A virus with other respiratory manifestations (principal); I10 Essential (primary) hypertension; E78.5 Hyperlipidemia, unspecified; K21.9 Gastro-esophageal reflux disease without esophagitis; F32.9 Major depressive disorder, single episode, unspecified; E03.9 Hypothyroidism, unspecified; G62.9 Polyneuropathy, unspecified; Z86.73 Personal history of transient ischemic attack (TIA), and cerebral infarction without residual deficits; Z91.048 Other nonmedicinal substance allergy status; Z79.899 Other long term (current) drug therapy; Z79.82 Long term (current) use of aspirin

== ENCOUNTER → 2019-02-05 | Outpatient (REF) | payer MEDICARE, MEDICAID, OTHER ==
[~2019-02-05] MED LIST changes: -ASPI-1 PO; +ASPI325T PO; +LEVO125T41 PO; +MILKSUS5 PO; +TAMI30CA PO; -VITA100018 PO; +VITA100072 PO; +VOLT1GEL15 TOP
== END ==
LOC: M LAB REF 16:36
PROVIDERS: ATTEND Internal Medicine
DX: R05 Cough (principal)

== ENCOUNTER 2019-04-19 06:22 | Emergency (ER) | payer MEDICARE, MEDICAID ==
[~2019-04-19] VITALS: Ht 160 cm; Wt 76.4 kg
[~2019-04-19 06:22] MED LIST changes: +ASPI-1 PO; -ASPI325T PO; -TRAZ-160 PO; +TRAZ-252 PO; +VITA100018 PO; -VITA100072 PO
[2019-04-19] MEDS ORDERED: ACETAMINOPHEN 325 MG TAB PO ONE (06:45)
--- NOTE | 2019-04-19 07:04 | REPVR ---
EXAM: CT Head Without Contrast EXAM DATE/TIME: 04/19/2019 6:38 AM CLINICAL HISTORY: 78 years old, female; Injury or trauma; Fall TECHNIQUE: Imaging protocol: Axial computed tomography images of the head without contrast. Radiation optimization: All CT scans at this facility use at least one of these dose optimization techniques: automated exposure control; mA and/or kV adjustment per patient size (includes targeted exams where dose is matched to clinical indication); or iterative reconstruction. COMPARISON: CT Head without contrast 10/12/2018 4:34 PM FINDINGS: Brain: There is no acute intracranial abnormality. Moderate prominence of ventricles and sulci representing volume loss. Moderate small vessel ischemic changes are seen. There is no mass, midline shift, or mass effect. Swartz-white matter differentiation is preserved. There is no evidence of hemorrhage. Lacunar infarcts in right basal ganglia likely old There is no extra-axial fluid collection. Basal cisterns are patent. Ventricles: See Brain Finding. Bones/joints: Unremarkable. No acute fracture. Sinuses: Visualized sinuses are unremarkable. No fluid levels. Mastoid air cells: Visualized mastoid air cells are well aerated. No mastoid effusion. Soft tissues: Unremarkable. IMPRESSION: 1. Moderate volume loss and small vessel ischemic changes. 2. No acute intracranial abnormality. Electronically signed by: Katie Bruner On 04/19/2019 07:04:24 AM
--- NOTE | 2019-04-19 08:15 | REP ---
Duplex extremity venous ultrasound: Right lower extremity. History: Right leg swelling swelling. Findings: The deep veins are anechoic and fully compressible from the groin to the popliteal fossa in the right lower extremity. Color flow imaging is homogeneous. Spectral Doppler interrogation demonstrates intact respiratory variation in flow and normal manual augmentation of flow. There is no evidence of deep vein thrombosis. Impression: Negative right lower extremity duplex venous ultrasound. No evidence of deep vein thrombosis. Electronically Signed by Kaiser Lemus MD 04/19/2019 08:06 A
--- NOTE | 2019-04-19 08:22 | REP ---
RIGHT KNEE SERIES, FOUR VIEWS: Four views right knee performed. There is no acute fracture or dislocation. There is moderate medial joint space narrowing with subchondral sclerosis. Mild spurring is noted at the margins of the joint. There is chondrocalcinosis. There is mild superior patellar spurring. IMPRESSION: Degenerative changes without fracture or dislocation. Electronically Signed by Ad Swartz MD 04/19/2019 04:32 P
--- NOTE | 2019-04-19 08:34 | REP ---
THORACIC SPINE: Three AP and lateral views of thoracic spine are performed. Comparison made with prior chest radiographs 02/06/2019. There is no acute compression fracture. Alignment is unchanged. There is slight disc space narrowing and subchondral sclerosis at all levels. Posterior elements are intact. IMPRESSION: Mild diffuse degenerative changes without acute fracture. Electronically Signed by Ad Swartz MD 04/19/2019 04:32 P
--- NOTE | 2019-04-19 08:40 | REP ---
LUMBOSACRAL SPINE, FIVE VIEWS: Five views lumbosacral spine are performed. There is no compression fracture. There is chronic mild anterolisthesis of L4 on L5 due to posterior facet arthropathy. There is mild diffuse spurring. There is moderate narrowing at L2-3, L3-4 with subchondral sclerosis and mild narrowing at L4-5. There is diffuse sclerosis and spurring at the posterior facet joints. Posterior elements are intact. There is mild curvature toward the left. IMPRESSION: Degenerative changes without acute fracture or dislocation. Electronically Signed by Ad Swartz MD 04/19/2019 04:32 P
[2019-04-19] MEDS ORDERED: BACI500O59 EX (09:16)
[2019-04-19 09:48] VITALS: BP 174/82
== END 2019-04-19 10:08 | disposition home or self-care (01) ==
LOC: M ED 06:22 → EDBD 06:22 → M ED 10:08
DX: S80.01XA Contusion of right knee, initial encounter (principal); S80.211A Abrasion, right knee, initial encounter; S00.01XA Abrasion of scalp, initial encounter; W18.39XA Other fall on same level, initial encounter; Y92.89 Other specified places as the place of occurrence of the external cause; I10 Essential (primary) hypertension; J45.909 Unspecified asthma, uncomplicated; F33.9 Major depressive disorder, recurrent, unspecified; F41.9 Anxiety disorder, unspecified; E78.9 Disorder of lipoprotein metabolism, unspecified; Z99.89 Dependence on other enabling machines and devices; Z86.73 Personal history of transient ischemic attack (TIA), and cerebral infarction without residual deficits; Z79.899 Other long term (current) drug therapy; Z79.82 Long term (current) use of aspirin; Z91.048 Other nonmedicinal substance allergy status; Z87.891 Personal history of nicotine dependence

== ENCOUNTER → 2019-06-20 | Outpatient (REF) | payer MEDICARE, MEDICAID, OTHER ==
[~2019-06-20] MED LIST changes: +BACI500O59 EX; -DULO1CAP3 PO; +DULO1CAP6 PO; -OXYB5TAB PO; +OXYB5TAB2 PO; +PRESCAP PO; +SM STAB3 PO
[2019-06-20 10:26] LABS: HEMOGLOBIN 13.5 g/dl (12.0-15.5); MEAN CORPUSCULAR HEMOGLOBIN 32.6 pg (27.0-33.0); MEAN CORPUSCULAR HGB CONC 33.8 g/dl (32.0-36.5); MEAN CORPUSCULAR VOLUME 96.6 fl (80.0-96.0); PLATELET COUNT, AUTOMATED 283 10^3/uL (150-450); RED BLOOD COUNT 4.14 10^6/uL (4.00-5.40); WHITE BLOOD COUNT 5.5 10^3/uL (4.0-10.0)
[2019-06-20 11:08] LABS: ALT/SGPT 24 U/L (12-78); BLOOD UREA NITROGEN 17 MG/DL (7-18); CALCIUM LEVEL 9.6 MG/DL (8.8-10.2); CARBON DIOXIDE LEVEL 27 MEQ/L (21-32); CHLORIDE LEVEL 106 MEQ/L (98-107); CHOLESTEROL LEVEL 161 MG/DL (<200); CHOLESTEROL RISK RATIO 2.367 (<5); CPK CREATINE PHOSPHOKINASE 89 U/L (26-192); CREATININE FOR GFR 0.89 MG/DL (0.55-1.30); GLOMERULAR FILTRATION RATE > 60.0 (>32); GLUCOSE, FASTING 85 MG/DL (70-100); HDL CHOLESTEROL 68 MG/DL (>40); LDL CHOLESTEROL 75 MG/DL (<100); NON-HDL-C 93 MG/DL; POTASSIUM SERUM 4.3 MEQ/L (3.5-5.1); SODIUM LEVEL 141 MEQ/L (136-145); TRIGLYCERIDES LEVEL 88 MG/DL (<150)
== END ==
PROVIDERS: ATTEND Internal Medicine
DX: I10 Essential (primary) hypertension (principal); E03.9 Hypothyroidism, unspecified

== ENCOUNTER 2019-07-04 13:02 | Emergency (ER) | payer MEDICARE, MEDICAID ==
[~2019-07-04] VITALS: Ht 157.5 cm; Wt 76.8 kg
[~2019-07-04 13:02] MED LIST changes: -MECL-68 PO; +MECL1TAB31 PO; +OXYB-54 PO; -OXYB5TAB2 PO; -PRESCAP PO; -SM STAB3 PO
[2019-07-04] MEDS ORDERED: PRESCAP PO (13:38)
[2019-07-04] MEDS ORDERED: SM STAB3 PO (13:38)
--- NOTE | 2019-07-04 14:07 | REP ---
CT of the head without contrast Indication: Fall. Comparison: CT head of 04/19/2019. Technique: Axial CT of the head was performed without contrast. Findings: There is right frontal scalp soft tissue swelling without underlying calvarial fracture. There is no evidence of acute intracranial hemorrhage or extra-axial fluid collection. There are similar scattered a hypodensities which are nonspecific but suggestive of microvascular ischemic disease. There is no mass effect or midline shift. The basal cisterns are patent. There is no hydrocephalus. Note is made intracranial vascular calcification. The visualized paranasal sinuses and mastoid air cells are clear. Impression: Right frontal scalp soft tissue swelling without underlying calvarial fracture. No acute intracranial abnormality. Similar white matter changes. Electronically Signed by Bear Reyes MD 07/04/2019 01:58 P
[2019-07-04 15:07] VITALS: BP 188/100
== END 2019-07-04 15:20 | disposition home or self-care (01) ==
LOC: EDBD 13:02 → M ED 13:02
DX: S00.03XA Contusion of scalp, initial encounter (principal); W19.XXXA Unspecified fall, initial encounter; Y92.099 Unspecified place in other non-institutional residence as the place of occurrence of the external cause; Y93.9 Activity, unspecified; Y99.9 Unspecified external cause status; I51.9 Heart disease, unspecified; I10 Essential (primary) hypertension; J44.9 Chronic obstructive pulmonary disease, unspecified; E07.9 Disorder of thyroid, unspecified; G89.29 Other chronic pain; Z87.891 Personal history of nicotine dependence; Z79.82 Long term (current) use of aspirin; Z79.899 Other long term (current) drug therapy; Z91.89 Other specified personal risk factors, not elsewhere classified

== ENCOUNTER → 2019-10-02 | Outpatient (CLI) | payer MEDICARE, MEDICAID ==
[~2019-10-02] MED LIST changes: +MECL-68 PO; -MECL1TAB31 PO; -OXYB-54 PO; +OXYB5TAB2 PO; +PRESCAP PO; +SM STAB3 PO
[2019-10-02 14:27] LABS: BLOOD UREA NITROGEN 20 MG/DL (7-18); CALCIUM LEVEL 8.9 MG/DL (8.8-10.2); CARBON DIOXIDE LEVEL 26 MEQ/L (21-32); CHLORIDE LEVEL 108 MEQ/L (98-107); CREATININE FOR GFR 1.05 MG/DL (0.55-1.30); FOLATE > 24.0 NG/ML (>5.4); FREE T4 0.93 NG/DL (0.76-1.46); GLOMERULAR FILTRATION RATE 53.5 (>32); GLUCOSE, FASTING 109 MG/DL (70-100); POTASSIUM SERUM 4.3 MEQ/L (3.5-5.1); SODIUM LEVEL 141 MEQ/L (136-145)
[2019-10-02 15:02] LABS: HEMOGLOBIN A1c 5.6 %
[2019-10-02 15:04] LABS: BASO # 0.1 10^3/uL (0.0-0.2); EOS # 0.3 10^3/uL (0.0-0.5); EOS % 5.4 % (0.0-3.0); HEMATOCRIT 36.7 % (36.0-47.0); HEMOGLOBIN 12.3 g/dl (12.0-15.5); LYMPH # 1.8 10^3/uL (1.5-5.0); LYMPH % 36.2 % (24.0-44.0); MEAN CORPUSCULAR HGB CONC 33.5 g/dl (32.0-36.5); MEAN CORPUSCULAR VOLUME 98.4 fl (80.0-96.0); MONO # 0.5 10^3/uL (0.0-0.8); MONO % 9.9 % (0.0-5.0); NEUTROPHILS # 2.4 10^3/uL (1.5-8.5); NEUTROPHILS % 47.3 % (36.0-66.0); PLATELET COUNT, AUTOMATED 284 10^3/uL (150-450); RED BLOOD COUNT 3.73 10^6/uL (4.00-5.40)
[2019-10-06 00:07] LABS: Methylmalonic Acid 237 nmol/L (0-378)
== END ==
LOC: M PLALAB 10:36
DX: R53.1 Weakness (principal)

== ENCOUNTER → 2020-04-21 | Outpatient (REF) | payer MEDICARE, MEDICAID ==
[~2020-04-21] MED LIST changes: -MECL-68 PO; +MECL1TAB31 PO; +OXYB-54 PO; -OXYB5TAB2 PO; +PHEN26CR PR; -PREPCRE PR
[2020-04-21 09:55] LABS: HEMATOCRIT 37.6 % (36.0-47.0); HEMOGLOBIN 12.4 g/dl (12.0-15.5); PLATELET COUNT, AUTOMATED 280 10^3/uL (150-450); RED BLOOD COUNT 3.76 10^6/uL (4.00-5.40); WHITE BLOOD COUNT 5.6 10^3/uL (4.0-10.0)
[2020-04-21 10:33] LABS: ALBUMIN 3.5 GM/DL (3.2-5.2); ALT/SGPT 27 U/L (12-78); BILIRUBIN,TOTAL 0.4 MG/DL (0.2-1.0); BLOOD UREA NITROGEN 15 MG/DL (7-18); CALCIUM LEVEL 8.9 MG/DL (8.8-10.2); CARBON DIOXIDE LEVEL 29 MEQ/L (21-32); CHLORIDE LEVEL 105 MEQ/L (98-107); CHOLESTEROL LEVEL 138 MG/DL (<200); CHOLESTEROL RISK RATIO 2.123 (<5); CREATININE FOR GFR 0.86 MG/DL (0.55-1.30); GLOMERULAR FILTRATION RATE > 60.0 (>32); GLUCOSE, FASTING 82 MG/DL (70-100); HDL CHOLESTEROL 65 MG/DL (>40); LDL CHOLESTEROL 59 MG/DL (<100); NON-HDL-C 73 MG/DL; POTASSIUM SERUM 4.4 MEQ/L (3.5-5.1); SODIUM LEVEL 141 MEQ/L (136-145); TOTAL PROTEIN 7.2 GM/DL (6.4-8.2); TRIGLYCERIDES LEVEL 72 MG/DL (<150)
== END ==
PROVIDERS: ATTEND Internal Medicine
DX: R45.1 Restlessness and agitation (principal); W18.30XD Fall on same level, unspecified, subsequent encounter; Z79.899 Other long term (current) drug therapy

== ENCOUNTER 2020-05-21 15:55 | Emergency (ER) | payer MEDICARE, MEDICAID ==
[~2020-05-21] VITALS: Ht 160 cm; Wt 170.0 kg
--- NOTE | 2020-05-21 16:41 | REPVR ---
PROCEDURE INFORMATION: Exam: CT Head Without Contrast Exam date and time: 05/21/2020 4:29 PM Age: 79 years old Clinical indication: Weakness, extremity; Additional info: CVA - nursing interventions must not delay CT TECHNIQUE: Imaging protocol: Computed tomography of the head without contrast. Radiation optimization: All CT scans at this facility use at least one of these dose optimization techniques: automated exposure control; mA and/or kV adjustment per patient size (includes targeted exams where dose is matched to clinical indication); or iterative reconstruction. Other technique: STROKE PROTOCOL was implemented. COMPARISON: CT Head without contrast 07/04/2019 1:36 PM FINDINGS: Brain: There is volume loss. There is white matter lucency consistent with chronic microvascular disease. There is no acute infarct. There is no hemorrhage or extra-axial collection. There is no mass. Ventricles: There is no hydrocephalus. Bones/joints: Unremarkable. No acute fracture. Sinuses: Visualized sinuses are unremarkable. No fluid levels. Mastoid air cells: Visualized mastoid air cells are well aerated. Soft tissues: Unremarkable. IMPRESSION: 1. There is chronic microvascular disease. 2. No acute intracranial lesion or injury and no change from prior scan. ASSESSMENT: ASPECTS ([place] Stroke Program Early CT Score) is 10. Electronically signed by: Constantine Espinoza On 05/21/2020 16:40:46 PM
[2020-05-21] MEDS ORDERED: DULO1CAP5 PO (17:30)
[2020-05-21] MEDS ORDERED: VENTAER INH ×2 (17:30→18:18)
[2020-05-21] MEDS ORDERED: MOM30SS2 PO (17:30)
[2020-05-21] MEDS ORDERED: PERI0.126 SSP (17:30)
[2020-05-21] MEDS ORDERED: ALEN70TA74 PO (17:30)
[2020-05-21] MEDS ORDERED: BUPR75TA5 PO (17:30)
--- NOTE | 2020-05-21 17:56 | ECGEPIP ---
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
[2020-05-21] MEDS ORDERED: SIME80TA PO (18:08)
[2020-05-21] MEDS ORDERED: L-LY500T6 PO (18:08)
[2020-05-21] MEDS ORDERED: VITAD1000T PO (18:08)
[2020-05-21] MEDS ORDERED: ACET500T15 PO (18:08)
[2020-05-21] MEDS ORDERED: PX S0.65 NARES (18:12)
[2020-05-21] MEDS ORDERED: CENT1TAB PO (18:12)
[2020-05-21 18:34] LABS: BASO # 0.1 10^3/uL (0.0-0.2); BASO % 0.8 % (0.0-1.0); EOS # 0.4 10^3/uL (0.0-0.5); EOS % 6.9 % (0.0-3.0); HEMATOCRIT 36.8 % (36.0-47.0); HEMOGLOBIN 12.3 g/dl (12.0-15.5); LYMPH # 2.1 10^3/uL (1.5-5.0); MEAN CORPUSCULAR HEMOGLOBIN 33.2 pg (27.0-33.0); MEAN CORPUSCULAR HGB CONC 33.4 g/dl (32.0-36.5); MEAN CORPUSCULAR VOLUME 99.5 fl (80.0-96.0); MONO # 0.6 10^3/uL (0.0-0.8); MONO % 10.4 % (0.0-5.0); NEUTROPHILS # 2.7 10^3/uL (1.5-8.5); NEUTROPHILS % 45.7 % (36.0-66.0); PLATELET COUNT, AUTOMATED 295 10^3/uL (150-450); WHITE BLOOD COUNT 5.9 10^3/uL (4.0-10.0)
[2020-05-21 19:12] VITALS: BP 158/98
[2020-05-21 19:47] LABS: INR 1.09; PARTIAL THROMBOPLASTIN TIME 34.3 SECONDS (25.0-38.4); PROTHROMBIN TIME 13.8 SECONDS (11.8-14.0)
[2020-05-21 19:56] LABS: BLOOD UREA NITROGEN 17 MG/DL (7-18); CARBON DIOXIDE LEVEL 29 MEQ/L (21-32); CHLORIDE LEVEL 106 MEQ/L (98-107); CK-MB VALUE MASS 2.5 NG/ML (<3.6); CPK CREATINE PHOSPHOKINASE 89 U/L (26-192); CREATININE FOR GFR 0.96 MG/DL (0.55-1.30); GLOMERULAR FILTRATION RATE 59.4 (>32); GLUCOSE, FASTING 87 MG/DL (70-100); MAGNESIUM LEVEL 2.3 MG/DL (1.8-2.4); MB/CK RELATIVE INDEX 2.81 (< OR =4); POTASSIUM SERUM 4.1 MEQ/L (3.5-5.1); SODIUM LEVEL 140 MEQ/L (136-145); TROPONIN I < 0.02 NG/ML (< 0.10)
--- NOTE | 2020-05-22 02:54 | REP ---
CHEST, PORTABLE: REASON: Stroke-like symptoms. COMPARISON: Latest prior 02/06/2019, a two-view exam. FINDINGS: The technique utilized in obtaining the radiograph has magnified the cardiac silhouette and accentuated the interstitial markings. The superior mediastinal structures are midline. The cardiac silhouette is unremarkable in size, shape, and position. The diaphragmatic surfaces of the lungs are regular, and the costophrenic angles are clear. The pulmonary toney are clear. The imaged osseous structures are intact. There is persistent elevation of the diaphragmatic surface of the right lung, status quo. IMPRESSION: There is no acute cardiopulmonary disease. Electronically Signed by Veto You DO 05/22/2020 08:10 A
== END 2020-05-21 20:35 | disposition home or self-care (01) ==
LOC: M ED 15:55 → EDBD 15:55 → M ED 20:35
DX: G25.3 Myoclonus (principal); I51.9 Heart disease, unspecified; I10 Essential (primary) hypertension; J44.9 Chronic obstructive pulmonary disease, unspecified; Z87.891 Personal history of nicotine dependence; Z79.82 Long term (current) use of aspirin; Z79.899 Other long term (current) drug therapy; Z91.89 Other specified personal risk factors, not elsewhere classified

== ENCOUNTER → 2020-07-08 | Outpatient (REF) | payer MEDICARE, MEDICAID ==
[~2020-07-08] MED LIST changes: +ACET500T15 PO; +ALEN70TA74 PO; -ASPI81TA85 PO; +ASPI81TA86 PO; +BUPR75TA5 PO; +CENT1TAB PO; +D31000TA2 PO; +DULO1CAP5 PO; +L-LY500T6 PO; +MOM30SS2 PO; +PANT40TA29 PO; -PANT40TA3 PO; +PERI0.126 SSP; +PX S0.65 NARES
[2020-07-08 14:15] LABS: ALBUMIN 3.9 GM/DL (3.2-5.2); BLOOD UREA NITROGEN 18 MG/DL (7-18); CARBON DIOXIDE LEVEL 28 MEQ/L (21-32); CHLORIDE LEVEL 107 MEQ/L (98-107); CREATININE FOR GFR 0.81 MG/DL (0.55-1.30); FOLATE > 24.0 NG/ML; GLOMERULAR FILTRATION RATE > 60.0 (>32); GLUCOSE, FASTING 79 MG/DL (70-100); PHOSPHORUS LEVEL 3.5 MG/DL (2.5-4.9); POTASSIUM SERUM 4.2 MEQ/L (3.5-5.1); SODIUM LEVEL 140 MEQ/L (136-145); THYROXINE (T4) 8.6 UG/DL (4.5-12.0); VITAMIN B12 LEVEL 1405 PG/ML
[2020-07-12 16:07] LABS: VITAMIN B1 LEVEL WHOLE BLOOD 194.2 nmol/L (66.5-200.0); VITAMIN B6,PYRIDOXAL PHOSPHATE 42.1 ug/L (2.0-32.8)
[2020-07-15 17:07] LABS: ANTINUCLEAR ANTIBODIES DIRECT Negative (Negative); VITAMIN E(ALPHA TOCOPHEROL) 20.7 mg/L (9.0-29.0); VITAMIN E(GAMMA TOCOPHEROL) 0.2 mg/L (0.5-4.9)
== END ==
PROVIDERS: ATTEND Psychiatry & Neurology Neurology
DX: G31.84 Mild cognitive impairment of uncertain or unknown etiology (principal); E11.9 Type 2 diabetes mellitus without complications

== ENCOUNTER 2020-10-22 19:18 | Inpatient (IN) | payer MEDICARE, MEDICAID ==
[~2020-10-22] VITALS: Ht 160 cm; Wt 77.0 kg
[~2020-10-22 19:18] MED LIST changes: -CLOP75TA2 PO
[2020-10-22 19:52] LABS: EOS # 0.1 10^3/uL (0.0-0.5); EOS % 4.1 % (0.0-3.0); HEMATOCRIT 36.7 % (36.0-47.0); HEMOGLOBIN 12.1 g/dl (12.0-15.5); LYMPH # 1.3 10^3/uL (1.5-5.0); LYMPH % 43.2 % (24.0-44.0); MEAN CORPUSCULAR HEMOGLOBIN 32.6 pg (27.0-33.0); MEAN CORPUSCULAR VOLUME 98.9 fl (80.0-96.0); MONO # 0.5 10^3/uL (0.0-0.8); MONO % 16.1 % (0.0-5.0); NEUTROPHILS % 35.3 % (36.0-66.0); PLATELET COUNT, AUTOMATED 233 10^3/uL (150-450); RED BLOOD COUNT 3.71 10^6/uL (4.00-5.40); WHITE BLOOD COUNT 2.9 10^3/uL (4.0-10.0)
[2020-10-22 20:05] LABS: INR 0.95; PROTHROMBIN TIME 12.9 SECONDS (12.5-14.3)
[2020-10-22 20:06] LABS: PARTIAL THROMBOPLASTIN TIME 32.6 SECONDS (24.2-38.5)
[2020-10-22 20:07] LABS: ALBUMIN 3.6 GM/DL (3.2-5.2); ALT/SGPT 23 U/L (12-78); BILIRUBIN,TOTAL 0.2 MG/DL (0.2-1.0); BLOOD UREA NITROGEN 15 MG/DL (7-18); CALCIUM LEVEL 8.4 MG/DL (8.8-10.2); CARBON DIOXIDE LEVEL 29 MEQ/L (21-32); CHLORIDE LEVEL 102 MEQ/L (98-107); CREATININE FOR GFR 0.92 MG/DL (0.55-1.30); FERRITIN 99 NG/ML (8-252); GLOMERULAR FILTRATION RATE > 60.0 (>32); GLUCOSE, FASTING 107 MG/DL (70-100); POTASSIUM SERUM 4.3 MEQ/L (3.5-5.1); SODIUM LEVEL 137 MEQ/L (136-145); TOTAL PROTEIN 7.2 GM/DL (6.4-8.2)
[2020-10-22 20:08] LABS: D-DIMER QUANT 3581.04 ng/ml (<500)
--- NOTE | 2020-10-22 22:05 | IPNPDOC ---
Text Note Date of Service The patient was seen on 10/22/20. VS,Adielbone, I+O VS, Fishbone, I+O Laboratory Tests 10/22/20 19:32 Vital Signs Date Time Temp Pulse Resp B/P (MAP) Pulse Ox O2 Delivery O2 Flow Rate FiO2 10/22/20 19:42 99.7 75 16 180/81 92 Room Air 10/22/20 19:42 92 CHRISTINE MORRIS MD Oct 22, 2020 22:05
--- NOTE | 2020-10-22 22:15 | HPEPDOC ---
[facility] Medical History & Physical Date of Admission Oct 22, 2020 Date of Service: Oct 22, 2020 Primary Care Physician: Yakelin Thapa Attending Physician: CHRISTINE MORRIS MD History and Physical CHIEF COMPLAINT: Productive cough and generalized weakness HISTORY OF PRESENT ILLNESS: Hayde is a pleasant 80yo female w/ notable PMHx of htn, CVA, hld, and chino on home cpap, who presented to the ED on 10/22/2020 via EMS from her residence at [facility] after a morning routine novel coronavirus test returned with positive result. She was subsequently contacted by the medical transcription supervisor (Dr. Sharif Perez) who advised she be transported to the ED. In addition to the positive COVID test, she has been experiencing a productive cough over the past week and feels as though the amount of sputum. She is expectorating is still increasing. The sputum color ranges from "dark yellow to smith." She denies any hemoptysis or pleuritic chest pain. In addition to the cough, she also reports a decrease in strength/generalized weakness over the past month. She feels as though she's becoming more dyspneic with exertion of late too. In the ED, CBC showed leukopenia (WBC 2.9) with borderline macrocytosis; metabolic panel was relatively unremarkable; elevated Ddimer (3581); in lactic acid and pro-calcitonin within normal limits. A portable chest x-ray showed no acute findings. Per emergency physician, patient participate in exertional O2 saturation test which showed desaturation into the low 80s. While at rest, she was saturating around 92-94 on room air. Patient was subsequently admitted under the care of the hospitalist service to the COVID designated 4-main floor for continued monitoring of respiratory status in the setting of known coronavirus PAST MEDICAL HISTORY: CVA in 2015 Hypertension Hyperlipidemia Obstructive sleep apnea on home CPAP. Hyperthyroidism. GERD Depression. Neuropathy, right lower extremity/right foot follows with neurology as outpatient. Presumed bladder spasms on oxybutynin PAST SURGICAL HISTORY: Appendectomy around 1959 Surgeries on both feet Tubal ligation. Unspecified back surgery in 2014 SOCIAL HISTORY: She lives at [facility]. She is a with her passing away 1998. She has 2 children. 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 She is a former cigarette smoker, having quit approximately 30 years ago after smoking for roughly 35 years at an average of one pack per day (28-qufx-suva smoking history). She has about 1 drink of alcohol every month and reports a former history of moderately heavy alcohol use. She denies any current or former illegal drug use. FAMILY HISTORY: Mother: , pancreatic cancer Father: , OR 3 brothers: All ; one brother had history of OR ALLERGIES: Please see below. REVIEW OF SYSTEMS: CONSTITUTIONAL: Reports generalized weakness and decreased strength over the past month. Denies recent unintentional change in weight, fever, chills, night sweats HEENT: Denies vision changes, eye pain, ear pain, tinnitus, rhinorrhea, dysphagia, or odynophagia CARDIOVASCULAR: Reports chronic intermittent chest pain that she rates 3 out of 10 and only experiences at rest. Denies chest pressure or palpitations. RESPIRATORY: Reports recent increased exertional dyspnea as well as productive cough over the past week which is yielding more and more sputum. Denies hemoptysis, pleuritic chest pain, or increased work of breathing. GASTROINTESTINAL: Reports chronic constipation. Denies abdominal pain, nausea, vomiting, diarrhea, or blood in stool. GENITOURINARY: Denies dysuria or hematuria NEUROLOGICAL: Reports neuropathic pain of right lower extremity, right foot. Denies headache, lightheadedness, dizziness, loss of consciousness, syncope, seizure. PSYCHIATRIC: Reports depressed mood, especially since onset of endemic in January. HEMATOLOGIC/LYMPHATIC: Reports easy bruising and states she takes a blood thinner at home. Denies easy bleeding. Denies any new lumps or bumps. HOME MEDICATIONS: Please see below. PHYSICAL EXAMINATION: VITAL SIGNS: Temperature 99.7, pulse, 75, respiratory rate 16, blood pressure 80/81, pulse oximetry 92% on room air. GENERAL APPEARANCE: Elderly female lying upright in bed. She is in no acute distress with no increased work of breathing while on room air. Alert and oriented 3. HEENT: Normocephalic, atraumatic. Wearing eyeglasses. Noninjected, anicteric sclera. No conjunctival pallor appreciated. Moist mucous membranes with no pharyngeal erythema or exudate. NECK: Supple. Trachea midline. No lymphadenopathy appreciated. CARDIOVASCULAR: Somewhat distant heart sounds with regular rate and regular rhythm. Normal S1, S2. Difficult to accurately and thoroughly assess for presence of murmurs or rubs due to distant heart sounds. LUNGS: Decreased breath sounds with decreased tidal volume bilaterally. No adventitious breath sounds are appreciated. Breathing room air. Speaking full sentences. No accessory muscle use. Symmetric chest expansion. ABDOMEN: Soft, nontender, nondistended. Active bowel sounds present. No guarding or rigidity appreciated. MUSCULOSKELETAL: 5 out of 5 muscle strength testing of upper and lower extremity bilaterally. EXTREMITIES: There is some slight swelling of bilateral lower extremities that is nonpitting. No calf tenderness. No signs of clubbing or cyanosis. Signs of arthritic changes. On visualization of bilateral hands. NEUROLOGICAL: Awake, alert and oriented 3. No focal neurologic deficits appreciated. Non-dysarthric speech. PSYCHIATRIC: Mood and affect appear appropriate. LABORATORY DATA: Please see below. IMAGING: Portable CXR, 10/22/2020- FINDINGS: Lungs: Unremarkable. No consolidation. Pleural space: Unremarkable. No pleural effusion. No pneumothorax. Heart/Mediastinum: Unremarkable. No cardiomegaly. Diaphragm: Persistent elevation of the right hemidiaphragm. Bones/joints: Skeletal degenerative changes are noted. IMPRESSION: No acute findings. MICROBIOLOGY: Please see below. ASSESSMENT & PLAN: This is an 80yo female w/ notable h/o CVA (2014), htn, hld, hypothyroidism, and chino on home cpap who presented to the ED on 10/22/2020 from her [facility] living facility after testing positive earlier in the day for Covid 19 in complaining of productive cough over the past week with decreased strength and generalized weakness over the last month with accompanying exertional dyspnea. In the ED, she was found to have an elevated d-dimer, leukopenia (WBC 2.9), and became hypoxic on O2 exertion test with saturations dropping to the low 80s. #Exertional hypoxia in setting of positive COVID-19 test -Per ED physician, patient desaturated into the low 80s on exertional O2 test. She was maintaining her sats well. When we evaluated her on room air between 90- 94% with no increased work of breathing or accessory muscle use. -Elevated d-dimer of 3581, full Covid 19 admission set was ordered (troponins, INR, BMP, fibrinogen, LDH, pro-Omar, ferritin, coags -Portable chest x-ray in the ED showed no acute pathology. -Due to the fact that she was maintaining stable oxygen saturations on room air without evidence of respiratory distress, decision was made to defer any steroid or antiviral treatment at time of admission in favor of continued observation, monitoring. Should her respiratory status change/acutely worsen, certainly warranted to revisit further treatment. -Isolation droplet precautions with continuous pulse ox monitoring, and O2 titration orders greater than 92%. -81 mg ASA administered upon presentation #Leukopenia -initial WBC 2.9 -This is most likely secondary to acute viral infection (coronavirus) #HTN -Home losartan continued. She was pretty consistently in the 170s systolic o vernight and a one time dose of amlodipine was ordered -2g Na diet ordered #HLD -Home statin medication continued #CHINO on home CPAP -Patient reports using a home CPAP but is unsure of her pressure settings. Okay for patient to use home CPAP once pressure settings are known #Hypothyroidism -Home levothyroxine continued #RLE and right foot neuropathy -Home gabapentin continued #Depression -home duloxetine continued #H/o CVA, 2015 -Home clopidogrel continued; O2 sat medication was also continued -She received 81 mg aspirin upon presentation per Covid treatment protocol #H/o GERD -home ppi continued #Presumed bladder spasms -Home oxybutynin continued #DVT prophylaxis: sc lovenox Disposition: Admitted to COVID floor for continued observation and monitoring of respiratory status in setting of known COVID + Vital Signs Vital Signs Date Time Temp Pulse Resp B/P (MAP) Pulse Ox O2 Delivery O2 Flow Rate FiO2 10/22/20 19:42 99.7 75 16 180/81 92 Room Air 10/22/20 19:42 92 Laboratory Data Labs 24H Laboratory Tests 2 10/22/20 19:32: Immature Granulocyte % (Auto) 0.3, Neutrophils (%) (Auto) 35.3L, Lymphocytes (%) (Auto) 43.2, Monocytes (%) (Auto) 16.1H, Eosinophils (%) (Auto) 4.1H, Basophils (%) (Auto) 1.0, Neutrophils # (Auto) 1.0L, Lymphocytes # (Auto) 1.3L, Monocytes # (Auto) 0.5, Eosinophils # (Auto) 0.1, Basophils # (Auto) 0.0, Nucleated Red Blood Cells % (auto) 0.0, Prothrombin Time 12.9, Prothromb Time International Ratio 0.95, Activated Partial Thromboplast Time 32.6, Fibrinogen 400, D-Dimer, Quantitative 3581.04H, Anion Gap 6L, Glomerular Filtration Rate > 60.0, Lactic Acid Level 0.8, Calcium Level 8.4L, Ferritin 99, Total Bilirubin 0.2, Aspartate Amino Transf (AST/SGOT) 24, Alanine Aminotransferase (ALT/SGPT) 23, Alkaline Phosphatase 80, Total Protein 7.2, Albumin 3.6, Albumin/Globulin Ratio 1.0L, Procalcitonin <0.05 CBC/BMP Laboratory Tests 10/22/20 19:32 Microbiology Microbiology 10/22/20 Respiratory Virus Panel (PCR) ([facility]) - Final, Complete SARS-CoV-2 (COVID 19) Home Medications Scheduled B-Complex with Vitamin C (Super B Complex-Vitamin C) 1 Each Tablet, 1 TAB PO DAILY Calcium Carbonate (Tums) 500 Mg Chw, 500 MG PO BID Carboxymethylcellulose Sodium (Refresh Tears) 0.5 % Johan, 1 DROP OU TID PT KEEPS AT BEDSIDE Cholecalciferol (Vitamin D3) (Vitamin D3) 1,000 Unit Tablet, 2,000 UNITS PO DAILY Clopidogrel Bisulfate (Clopidogrel) 75 Mg Tablet, 75 MG PO QPM STARTED 10/16/2020, TAKES AT 1700 Cyclosporine (Restasis) 0.05 % Emu, 1 DROP OU BID Duloxetine Hcl (Duloxetine HCl) 60 Mg Cap, 60 MG PO DAILY TAKES WITH 30MG FOR TOTAL DOSE 90MG Duloxetine Hcl (Duloxetine HCl) 30 Mg Capsule.dr, 30 MG PO DAILY TAKES WITH 60MG FOR TOTAL DOSE 90MG Fluticasone Propionate (Fluticasone Propionate) 50 Mcg/Act Spr, 2 SPRAY NA DAILY Folic Acid (Folic Acid) 400 Mcg Tab, 400 MCG PO DAILY Gabapentin (Gabapentin) 400 Mg Cap, 800 MG PO QHS Gabapentin (Gabapentin) 400 Mg Cap, 400 MG PO BID 0900, 1400 Levothyroxine Sodium (Levoxyl) 125 Mcg Tab, 62.5 MCG PO QAM Loratadine (Loratadine) 10 Mg Tab, 10 MG PO DAILY Losartan Potassium (Losartan Potassium) 50 Mg Tab, 50 MG PO DAILY Multivitamins (Thera M Plus Tablet) 1 Each Tablet, 1 TAB PO DAILY Oxybutynin Chloride (Oxybutynin Chloride ER) 5 Mg Tab, 5 MG PO DAILY Pantoprazole Sodium (Pantoprazole Sodium) 20 Mg Tab, 20 MG PO DAILY Psyllium Husk/Aspartame (Metamucil Fiber Singles Packet) 51.7 % Kevin, 3.4 GRAM PO DAILY Simvastatin (Zocor) 20 Mg Tab, 20 MG PO QHS Vit A/Vit C/Vit E/Zinc/Copper (Preservision Areds Softgel) 1 Each Capsule, 2 CAP PO BID Scheduled PRN Acetaminophen (Acetaminophen) 500 Mg Tablet, 500 MG PO Q12H PRN for PAIN Albuterol Sulfate (Ventolin Hfa) 18 Gm Hfa.aer.ad, 2 PUFFS INH QID PRN for SOB/WHEEZING Diclofenac Sodium (Voltaren) 1 % Gel, 2 GRAMS TOP QID PRN for PAIN APPLY TO SHOULDER Docusate Sodium (Colace) 100 Mg Cap, 100 MG PO BID PRN for CONSTIPATION Guaifenesin/Dextromethorphan (Guaifenesin Dm Syrup) 1 Syp Syp, 10 ML PO Q4H PRN for COUGH Ibuprofen (Ibuprofen) 200 Mg Tab, 200 MG PO Q6H PRN for PAIN Ibuprofen/Diphenhydramine Cit (Ibuprofen Pm Caplet) 1 Tab Tab, 1 TAB PO QHS PRN for INSOMNIA Lidocaine HCl (Aspercreme) 4 % Cre, 1 DOSE TOP Q6H PRN for PAIN APPLY TO AREAS OF PAIN Magnesium Hydroxide (Milk of Magnesia) 400 Mg/5 Ml Oral.susp, 2,400 MG PO DAILY PRN for CONSTIPATION Meclizine HCl (Meclizine HCl) 25 Mg Tab, 25 MG PO Q6H PRN for DIZZINESS Mupirocin (Mupirocin) 1 Dose/30 Gm Cream, 1 DOSE NA BID PRN for RASH Nystatin (Nystatin Powder) 100,000 Unit/Gm Pow, 1 DOSE TOP BID PRN for RASH APPLY TO AFFECTED AREA UNDER BREASTS AND IN GROIN AREA Phenyleph/Pramoxin/Glycr/W.pet (Preparation H Cream) 1 Cre Cre, 1 DOSE TX QID PRN for HEMORRHOIDS Saliva Substitute Combo No.9 (Biotene) 1 Liq Liq, 1 DOSE PO QID PRN for DRY MOUTH Simethicone (Simethicone) 80 Mg Tab.chew, 80 MG PO QID PRN for GAS PAIN Sodium Chloride (Saline Nasal [place]) 88 Ml [place], 2 SPRAYS NA Q6H PRN for NASAL DRYNESS Allergies Coded Allergies: TAPE (Verified Adverse Reaction, Intermediate, RED AREA, TAKES SKIN OFF, 07/23/15) A-FIB/CHADSVASC A-FIB History Current/History of A-Fib/PAF?: No Current PO Anticoag Therapy: No GME ATTESTATION GME ATTESTATION My faculty preceptor for this patient encounter was physically present during the encounter and was fully available. All aspects of the patient interview, examination, medical decision making process, and medical care plan development were reviewed and approved by the faculty preceptor. The faculty preceptor is aware and concurs with the plan as stated in the body of this note and will attest to such by his/her cosignature. ATTENDING NOTE I personally examined on Oct 22 2020 and discussed the patient's case with Ms. Pond is an 80-year-old with history of HTN, GERD, dyslipidemia, hypothyroidism, CVA, obesity and depression who was sent from [facility] for evaluation of 1 week in duration, cough & shortness of breath 2/2 COVID 19; she was found to be hypoxic 88% on RA while ambulating and will be admitted for management of hypoxemia 2/2 Covid 19. Overnight she was started on O2. Plan: We will ask the day time team consider Pulm consult to discuss Remdesivir Rest per Dr.Schwarz Lopez&P VERENICE MALAVE D.O. Oct 22, 2020 22:15 CHRISTINE MORRIS MD Oct 24, 2020 21:54
--- NOTE | 2020-10-22 22:57 | REPVR ---
PROCEDURE INFORMATION: Exam: XR Chest, 1 View Exam date and time: 10/22/2020 10:24 PM Age: 80 years old Clinical indication: Other: Covid +; Additional info: Coronavirus workup TECHNIQUE: Imaging protocol: XR of the chest Views: 1 view. COMPARISON: CR PORTABLE CHEST X-RAY 05/21/2020 4:40 PM FINDINGS: Lungs: Unremarkable. No consolidation. Pleural space: Unremarkable. No pleural effusion. No pneumothorax. Heart/Mediastinum: Unremarkable. No cardiomegaly. Diaphragm: Persistent elevation of the right hemidiaphragm. Bones/joints: Skeletal degenerative changes are noted. IMPRESSION: No acute findings. Electronically signed by: Xiang Trevizo On 10/22/2020 22:57:07 PM
[2020-10-22] MEDS ORDERED: CLOP75TA2 PO (23:31)
[2020-10-22] MEDS ORDERED: VITMTA PO (23:31)
[2020-10-22] MEDS ORDERED: NYSTATIN 100,000 UNITS/GM TOPICAL PWD 15 GM TOP PRN (23:45)
[2020-10-22] MEDS ORDERED: guaiFENesin DM LIQ 10ML UD PO PRN (23:45)
[2020-10-22] MEDS ORDERED: ALBUTEROL 90 MCG/ACT 8GM HFA INHALER INH PRN (23:45)
[2020-10-23 01:24] VITALS: BP 172/88
[2020-10-23] MEDS: ACETAMINOPHEN TAB 650MG DOSE (2X325MG) PO PRN (01:27)
[2020-10-23] MEDS: CLOPIDOGREL 75 MG TAB PO SCH ×2 (01:27→18:08)
[2020-10-23] MEDS: CALCIUM CARBONATE 500 MG CHEW U/D PO SCH ×3 (01:27→21:01)
[2020-10-23] MEDS: SIMVASTATIN 20 MG TAB PO SCH ×2 (01:27→21:01)
[2020-10-23] MEDS: GABAPENTIN 400 MG CAP PO SCH ×3 (01:27→21:01)
[2020-10-23] MEDS ORDERED: PILL CUTTER 1 EACH XX PRN (01:30)
[2020-10-23] MEDS: OCUVITE 1 TAB PO SCH ×3 (01:35→21:02)
[2020-10-23] MEDS ORDERED: amLODIPine 10 MG TAB PO ONE (02:15)
[2020-10-23 03:55] VITALS: BP 149/67
[2020-10-23] MEDS: LEVOTHYROXINE 125MCG TABLET (0.125MG) PO SCH (05:34)
[2020-10-23] MEDS ORDERED: LEVOTHYROXINE 62.5MCG PER 1/2 TAB (0.0625MG) PO SCH (06:00)
[2020-10-23 08:00] VITALS: BP 155/82
[2020-10-23 08:14] LABS: BASO % 0.7 % (0.0-1.0); EOS # 0.1 10^3/uL (0.0-0.5); HEMATOCRIT 35.5 % (36.0-47.0); HEMOGLOBIN 11.4 g/dl (12.0-15.5); LYMPH # 1.4 10^3/uL (1.5-5.0); LYMPH % 46.8 % (24.0-44.0); MEAN CORPUSCULAR HEMOGLOBIN 31.5 pg (27.0-33.0); MEAN CORPUSCULAR HGB CONC 32.1 g/dl (32.0-36.5); MEAN CORPUSCULAR VOLUME 98.1 fl (80.0-96.0); MONO # 0.4 10^3/uL (0.0-0.8); MONO % 14.5 % (0.0-5.0); NEUTROPHILS % 33.7 % (36.0-66.0); PLATELET COUNT, AUTOMATED 227 10^3/uL (150-450); RED BLOOD COUNT 3.62 10^6/uL (4.00-5.40)
[2020-10-23 08:24] LABS: INR 0.97; PROTHROMBIN TIME 13.1 SECONDS (12.5-14.3)
[2020-10-23 08:27] LABS: D-DIMER QUANT 3576.94 ng/ml (<500)
[2020-10-23 08:36] LABS: C REACTIVE PROTEIN QUANTITATIV 0.49 MG/DL (0.00-0.30); FERRITIN 91 NG/ML (8-252); LDH LACTATE DEHYDROGENASE 181 U/L (84-246); NT-PRO BNP 197 PG/ML (<450); TRIGLYCERIDES LEVEL 76 MG/DL (<150); TROPONIN I < 0.02 NG/ML (< 0.10)
[2020-10-23] MEDS: PANTOPRAZOLE 20 MG TAB PO SCH (09:00)
[2020-10-23] MEDS: LORATADINE 10 MG TAB PO SCH (09:00)
[2020-10-23] MEDS: VITAMIN B COMPLEX/VIT C CAP PO SCH (09:00)
[2020-10-23] MEDS: ASPIRIN 81 MG ENTERIC TAB PO SCH (09:00)
[2020-10-23] MEDS: oxyBUTYnin *DITROPAN XL* 5 MG TABCR PO SCH (09:00)
[2020-10-23] MEDS: VITAMIN D 1,000 INTERNATIONAL UNITS TABLET PO SCH (09:00)
[2020-10-23] MEDS: MULTIVITAMINS/MINERALS THERAP 1 TAB PO SCH (09:01)
[2020-10-23] MEDS: DULoxetine 30 MG CAP (CYMBALTA) PO SCH (09:01)
[2020-10-23] MEDS: LOSARTAN 50MG TABLET PO SCH (09:01)
[2020-10-23] MEDS: ENOXAPARIN 40MG/0.4ML SYRINGE (J1650 PER 10MG) SC SCH (09:02)
--- NOTE | 2020-10-23 13:59 | IPNPDOC ---
Text Note Date of Service The patient was seen on 10/23/20. NOTE SUBJECTIVE: Had some cough and congestion with increased phlegm production for the past week but now getting better. Was febrile to 101 at night. Complains of rash inthe groin with itching PHYSICAL EXAMINATION: VITAL SIGNS: As below GENERAL APPEARANCE: Elderly female lying upright in bed. She is in no acute distress with no increased work of breathing while on room air. Alert and oriented 3. HEENT: Normocephalic, atraumatic. Wearing eyeglasses. Noninjected, anicteric sclera. No conjunctival pallor appreciated. Moist mucous membranes with no pharyngeal erythema or exudate. NECK: Supple. Trachea midline. No lymphadenopathy appreciated. CARDIOVASCULAR: Regular rate and regular rhythm. Normal S1, S2. No murmurs or rubs or gallop LUNGS: No adventitious breath sounds are appreciated. Breathing room air. Speaking full sentences. No accessory muscle use. Symmetric chest expansion. ABDOMEN: Soft, nontender, nondistended. Active bowel sounds present. No guarding or rigidity appreciated. MUSCULOSKELETAL: 5 out of 5 muscle strength testing of upper and lower extremity bilaterally. EXTREMITIES: No edema. NEUROLOGICAL: Awake, alert and oriented 3. No focal neurologic deficits appreciated. Non-dysarthric speech. PSYCHIATRIC: Mood and affect appear appropriate. LABORATORY DATA: Please see below. IMAGING: Portable CXR, 10/22/2020- FINDINGS: Lungs: Unremarkable. No consolidation. Pleural space: Unremarkable. No pleural effusion. No pneumothorax. Heart/Mediastinum: Unremarkable. No cardiomegaly. Diaphragm: Persistent elevation of the right hemidiaphragm. Bones/joints: Skeletal degenerative changes are noted. IMPRESSION: No acute findings. MICROBIOLOGY: Please see below. ASSESSMENT & PLAN: This is an 80yo female w/ notable h/o CVA (2014), htn, hld, hypothyroidism, and lois on home cpap who presented to the ED on 10/22/2020 from her [facility] after testing positive earlier in the day for Covid 19 in complaining of productive cough over the past week with decreased strength and generalized weakness over the last month with accompanying exertional dyspnea. In the ED, she was found to have an elevated d-dimer, leukopenia (WBC 2.9), and became hypoxic on O2 exertion test with saturations dropping to the low 80s. Exertional hypoxia in setting of positive COVID-19 test Per ED physician, patient desaturated into the low 80s on exertional O2 test. She was maintaining her sats well. When we evaluated her on room air between 90- 94% with no increased work of breathing or accessory muscle use. Elevated d-dimer of 3581, all other inflammatory markers not elevated. Due to the fact that she was maintaining stable oxygen saturations on room air without evidence of respiratory distress, decision was made to defer any steroid or antiviral treatment at time of admission in favor of continued observation, monitoring. Should her respiratory status change/acutely worsen, certainly warranted to revisit further treatment. Isolation droplet precautions with continuous pulse ox monitoring, and O2 tit ration orders greater than 92%. 81 mg ASA administered upon presentation Leukopenia initial WBC 2.9 This is most likely secondary to acute viral infection (coronavirus) HTN losartan continued. 2g Na diet ordered HLD statin LOIS on home CPAP Patient reports using a home CPAP but is unsure of her pressure settings. Okay for patient to use home CPAP once pressure settings are known Hypothyroidism Home levothyroxine continued RLE and right foot neuropathy Home gabapentin continued Depression home duloxetine continued H/o CVA, 2014 Home clopidogrel continued; O2 sat medication was also continued She received 81 mg aspirin upon presentation per Covid treatment protocol H/o GERD ppi continued Presumed bladder spasms oxybutynin continued DVT prophylaxis: sc lovenox Disposition: Admitted to COVID floor for continued observation and monitoring of respiratory status in setting of known COVID + VS,Fishbone, I+O VS, Fishbone, I+O Laboratory Tests 10/22/20 19:32 Vital Signs Date Time Temp Pulse Resp B/P (MAP) Pulse Ox O2 Delivery O2 Flow Rate FiO2 10/23/20 03:55 97.6 76 19 149/67 (94) 98 Nasal Cannula 2.0 10/22/20 19:42 92 I&O- Last 24 Hours up to 6 AM 10/23/20 06:00 Intake Total 300 ml Balance 300 ml MARIOLA SAENZ MD Oct 23, 2020 07:38
[2020-10-23] MEDS: NYSTATIN 100,000 UNITS/GM TOPICAL PWD 15 GM TOP SCH ×2 (14:00→21:02)
[2020-10-23 20:00] VITALS: BP 153/71
[2020-10-23 23:00] VITALS: O2SAT 93
[2020-10-24] VITALS (12 sets, daily range): BP systolic 147–159; BP diastolic 70–79; O2SAT 92–96
[2020-10-24] MEDS: LEVOTHYROXINE 125MCG TABLET (0.125MG) PO SCH (05:37)
[2020-10-24] MEDS: ACETAMINOPHEN TAB 650MG DOSE (2X325MG) PO PRN (05:38)
[2020-10-24] MEDS: MULTIVITAMINS/MINERALS THERAP 1 TAB PO SCH (09:32)
[2020-10-24] MEDS: PANTOPRAZOLE 20 MG TAB PO SCH (09:32)
[2020-10-24] MEDS: oxyBUTYnin *DITROPAN XL* 5 MG TABCR PO SCH (09:32)
[2020-10-24] MEDS: GABAPENTIN 400 MG CAP PO SCH ×2 (09:32→20:47)
[2020-10-24] MEDS: CALCIUM CARBONATE 500 MG CHEW U/D PO SCH ×2 (09:32→20:48)
[2020-10-24] MEDS: OCUVITE 1 TAB PO SCH ×2 (09:32→20:48)
[2020-10-24] MEDS: VITAMIN B COMPLEX/VIT C CAP PO SCH (09:32)
[2020-10-24] MEDS: LORATADINE 10 MG TAB PO SCH (09:32)
[2020-10-24] MEDS: ASPIRIN 81 MG ENTERIC TAB PO SCH (09:33)
[2020-10-24] MEDS: DULoxetine 30 MG CAP (CYMBALTA) PO SCH (09:33)
[2020-10-24] MEDS: ENOXAPARIN 40MG/0.4ML SYRINGE (J1650 PER 10MG) SC SCH (09:33)
[2020-10-24] MEDS: LOSARTAN 50MG TABLET PO SCH (09:33)
[2020-10-24] MEDS: NYSTATIN 100,000 UNITS/GM TOPICAL PWD 15 GM TOP SCH ×2 (09:34→20:48)
[2020-10-24] MEDS: VITAMIN D 1,000 INTERNATIONAL UNITS TABLET PO SCH (09:34)
--- NOTE | 2020-10-24 11:56 | IPNPDOC ---
Text Note Date of Service The patient was seen on 10/24/20. NOTE SUBJECTIVE: No complaints this morning. Feeling well, Off oxygen since early this am. Had low grade fever last night. Was a little confused but was easily redirected. Probably hospital delirium. PHYSICAL EXAMINATION: VITAL SIGNS: As below GENERAL APPEARANCE: Elderly female lying upright in bed. She is in no acute distress with no increased work of breathing while on room air. Alert and oriented 3. HEENT: Normocephalic, atraumatic. Wearing eyeglasses. Noninjected, anicteric sclera. No conjunctival pallor appreciated. Moist mucous membranes with no pharyngeal erythema or exudate. NECK: Supple. Trachea midline. No lymphadenopathy appreciated. CARDIOVASCULAR: Regular rate and regular rhythm. Normal S1, S2. No murmurs or rubs or gallop LUNGS: No adventitious breath sounds are appreciated. Breathing room air. Speaking full sentences. No accessory muscle use. Symmetric chest expansion. ABDOMEN: Soft, nontender, nondistended. Active bowel sounds present. No guarding or rigidity appreciated. MUSCULOSKELETAL: 5 out of 5 muscle strength testing of upper and lower extremity bilaterally. EXTREMITIES: No edema. NEUROLOGICAL: Awake, alert and oriented 3. No focal neurologic deficits appreciated. Non-dysarthric speech. PSYCHIATRIC: Mood and affect appear appropriate. LABORATORY DATA: Please see below. IMAGING: Portable CXR, 10/22/2020- FINDINGS: Lungs: Unremarkable. No consolidation. Pleural space: Unremarkable. No pleural effusion. No pneumothorax. Heart/Mediastinum: Unremarkable. No cardiomegaly. Diaphragm: Persistent elevation of the right hemidiaphragm. Bones/joints: Skeletal degenerative changes are noted. IMPRESSION: No acute findings. MICROBIOLOGY: Please see below. ASSESSMENT & PLAN: This is an 80yo female w/ notable h/o CVA (2014), htn, hld, hypothyroidism, and lois on home cpap who presented to the ED on 10/22/2020 from her [facility] after testing positive earlier in the day for Covid 19 in complaining of productive cough over the past week with decreased st rength and generalized weakness over the last month with accompanying exertional dyspnea. In the ED, she was found to have an elevated d-dimer, leukopenia (WBC 2.9), and became hypoxic on O2 exertion test with saturations dropping to the low 80s. Exertional hypoxia in setting of positive COVID-19 test Per ED physician, patient desaturated into the low 80s on exertional O2 test. Sh jose was maintaining her sats well. When we evaluated her on room air between 90- 94% with no increased work of breathing or accessory muscle use. Elevated d-dimer of 3581, all other inflammatory markers not elevated. Due to the fact that she was maintaining stable oxygen saturations on room air without evidence of respiratory distress, decision was made to defer any steroid or antiviral treatment at time of admission in favor of continued observation, monitoring. Should her respiratory status change/acutely worsen, certainly warranted to revisit further treatment. Isolation droplet precautions with continuous pulse ox monitoring, and O2 titration orders greater than 92%. 81 mg ASA administered upon presentation Leukopenia initial WBC 2.9 This is most likely secondary to acute viral infection (coronavirus) HTN losartan continued. 2g Na diet ordered HLD statin LOIS on home CPAP Patient reports using a home CPAP but is unsure of her pressure settings. Okay for patient to use home CPAP once pressure settings are known Hypothyroidism Home levothyroxine continued RLE and right foot neuropathy Home gabapentin continued Depression home duloxetine continued H/o CVA, 2014 Home clopidogrel continued; O2 sat medication was also continued She received 81 mg aspirin upon presentation per Covid treatment protocol H/o GERD ppi continued Presumed bladder spasms oxybutynin continued DVT prophylaxis: sc lovenox Disposition: Admitted to COVID floor for continued observation and monitoring of respiratory status in setting of known COVID + VS,Fishbone, I+O VS, Fishbone, I+O Vital Signs Date Time Temp Pulse Resp B/P (MAP) Pulse Ox O2 Delivery O2 Flow Rate FiO2 10/24/20 09:33 159/79 10/24/20 09:31 93 Room Air 10/24/20 04:00 100.4 85 18 10/24/20 02:00 2.0 10/23/20 09:00 92 I&O- Last 24 Hours up to 6 AM 10/24/20 06:00 Intake Total 480 ml Output Total 400 ml Balance 80 ml MARIOLA SAENZ MD Oct 24, 2020 11:54
[2020-10-24] MEDS: CLOPIDOGREL 75 MG TAB PO SCH (17:38)
[2020-10-24] MEDS: SIMVASTATIN 20 MG TAB PO SCH (20:47)
[2020-10-25] VITALS (9 sets, daily range): BP systolic 140; BP diastolic 69; O2SAT 91–96
[2020-10-25] MEDS: LEVOTHYROXINE 125MCG TABLET (0.125MG) PO SCH (05:00)
[2020-10-25 07:34] LABS: HEMATOCRIT 34.7 % (36.0-47.0); HEMOGLOBIN 11.7 g/dl (12.0-15.5); MEAN CORPUSCULAR HEMOGLOBIN 32.9 pg (27.0-33.0); MEAN CORPUSCULAR HGB CONC 33.7 g/dl (32.0-36.5); MEAN CORPUSCULAR VOLUME 97.5 fl (80.0-96.0); PLATELET COUNT, AUTOMATED 223 10^3/uL (150-450); RED BLOOD COUNT 3.56 10^6/uL (4.00-5.40); WHITE BLOOD COUNT 3.9 10^3/uL (4.0-10.0)
[2020-10-25] MEDS: PANTOPRAZOLE 20 MG TAB PO SCH (08:57)
[2020-10-25] MEDS: GABAPENTIN 400 MG CAP PO SCH ×2 (08:57→22:37)
[2020-10-25] MEDS: VITAMIN B COMPLEX/VIT C CAP PO SCH (08:57)
[2020-10-25] MEDS: CALCIUM CARBONATE 500 MG CHEW U/D PO SCH ×2 (08:57→22:38)
[2020-10-25] MEDS: MULTIVITAMINS/MINERALS THERAP 1 TAB PO SCH (08:57)
[2020-10-25] MEDS: oxyBUTYnin *DITROPAN XL* 5 MG TABCR PO SCH (08:57)
[2020-10-25] MEDS: LORATADINE 10 MG TAB PO SCH (08:57)
[2020-10-25] MEDS: LOSARTAN 50MG TABLET PO SCH (08:57)
[2020-10-25] MEDS: OCUVITE 1 TAB PO SCH ×2 (08:57→22:38)
[2020-10-25] MEDS: VITAMIN D 1,000 INTERNATIONAL UNITS TABLET PO SCH (08:57)
[2020-10-25] MEDS: DULoxetine 30 MG CAP (CYMBALTA) PO SCH (08:57)
[2020-10-25] MEDS: ASPIRIN 81 MG ENTERIC TAB PO SCH (08:57)
[2020-10-25] MEDS: NYSTATIN 100,000 UNITS/GM TOPICAL PWD 15 GM TOP SCH ×2 (08:58→22:39)
[2020-10-25] MEDS: ENOXAPARIN 40MG/0.4ML SYRINGE (J1650 PER 10MG) SC SCH (08:58)
--- NOTE | 2020-10-25 15:46 | IPNPDOC ---
Text Note Date of Service The patient was seen on 10/25/20. NOTE SUBJECTIVE: No complaints this morning. Feeling well, Off oxygen since yest erday. No fever or chills. Appetite remains good. PHYSICAL EXAMINATION: VITAL SIGNS: As below GENERAL APPEARANCE: Elderly female lying upright in bed. She is in no acute distress with no increased work of breathing while on room air. Alert and oriented 3. HEENT: Normocephalic, atraumatic. Wearing eyeglasses. Noninjected, anicteric sclera. No conjunctival pallor appreciated. Moist mucous membranes with no pharyngeal erythema or exudate. NECK: Supple. Trachea midline. No lymphadenopathy appreciated. CARDIOVASCULAR: Regular rate and regular rhythm. Normal S1, S2. No murmurs or rubs or gallop LUNGS: No adventitious breath sounds are appreciated. Breathing room air. Speaking full sentences. No accessory muscle use. Symmetric chest expansion. ABDOMEN: Soft, nontender, nondistended. Active bowel sounds present. No guarding or rigidity appreciated. EXTREMITIES: No edema. NEUROLOGICAL: Awake, alert and oriented 3. No focal neurologic deficits appreciated. Non-dysarthric speech. PSYCHIATRIC: Mood and affect appear appropriate. LABORATORY DATA: Please see below. IMAGING: Portable CXR, 10/22/2020- FINDINGS: Lungs: Unremarkable. No consolidation. Pleural space: Unremarkable. No pleural effusion. No pneumothorax. Heart/Mediastinum: Unremarkable. No cardiomegaly. Diaphragm: Persistent elevation of the right hemidiaphragm. Bones/joints: Skeletal degenerative changes are noted. IMPRESSION: No acute findings. ASSESSMENT & PLAN: This is an 80yo female w/ notable h/o CVA (2014), htn, hld, hypothyroidism, and lois on home cpap who presented to the ED on 10/22/2020 from her [facility] facility after testing positive earlier in the day for Covid 19 in complaining of productive cough over the past week with decreased strength and generalized weakness over the last month with accompanying exertional dyspnea. In the ED, she was found to have an elevated d-dimer, leukopenia (WBC 2.9), and became hypoxic on O2 exertion test with saturations dropping to the low 80s. Exertional hypoxia in setting of positive COVID-19 test Per ED physician, patient desaturated into the low 80s on exertional O2 test. She was maintaining her sats well. When we evaluated her on room air between 90- 94% with no increased work of breathing or accessory muscle use. Elevated d-dimer of 3581, all other inflammatory markers not elevated. Due to the fact that she was maintaining stable oxygen saturations on room air without evidence of respiratory distress, decision was made to defer any steroid or antiviral treatment at time of admission in favor of continued observation, monitoring. Should her respiratory status change/acutely worsen, certainly warranted to revisit further treatment. Isolation droplet precautions with continuous pulse ox monitoring, and O2 titration orders greater than 92%. 81 mg ASA administered upon presentation Leukopenia initial WBC 2.9 improving This is most likely secondary to acute viral infection (coronavirus) HTN losartan continued. 2g Na diet ordered HLD statin LOIS on home CPAP Patient reports using a home CPAP but is unsure of her pressure settings. Okay for patient to use home CPAP once pressure settings are known Hypothyroidism levothyroxine RLE and right foot neuropathy gabapentin Depression duloxetine H/o CVA, 2014 Home clopidogrel continued; ASA as per COVID protocol H/o GERD ppi Presumed bladder spasms/ urge incontinence oxybutynin DVT prophylaxis: sc lovenox Disposition: Admitted to COVID floor for continued observation and monitoring of respiratory status in setting of known COVID + VS,Fishbone, I+O VS, Fishbone, I+O Laboratory Tests 10/25/20 07:09 Vital Signs Date Time Temp Pulse Resp B/P (MAP) Pulse Ox O2 Delivery O2 Flow Rate FiO2 10/25/20 06:00 91 Room Air 10/25/20 04:00 98.7 94 18 140/69 (92) 10/24/20 02:00 2.0 10/23/20 09:00 92 I&O- Last 24 Hours up to 6 AM 10/25/20 05:59 Intake Total 1900 ml Output Total 500 ml Balance 1400 ml MARIOLA SAENZ MD Oct 25, 2020 15:46
[2020-10-25] MEDS: CLOPIDOGREL 75 MG TAB PO SCH (17:30)
[2020-10-25] MEDS: SIMVASTATIN 20 MG TAB PO SCH (22:38)
[2020-10-26] VITALS: O2SAT 92
[2020-10-26 03:55] VITALS: O2SAT 95
[2020-10-26 04:00] VITALS: BP 135/62
[2020-10-26] MEDS: LEVOTHYROXINE 125MCG TABLET (0.125MG) PO SCH (06:33)
[2020-10-26] MEDS: NYSTATIN 100,000 UNITS/GM TOPICAL PWD 15 GM TOP SCH ×2 (09:00→21:43)
[2020-10-26 09:52] LABS: FIBRINOGEN 421 MG/DL (221-452)
[2020-10-26] MEDS: ASPIRIN 81 MG ENTERIC TAB PO SCH (10:00)
[2020-10-26] MEDS: GABAPENTIN 400 MG CAP PO SCH ×2 (10:00→21:43)
[2020-10-26] MEDS: ENOXAPARIN 40MG/0.4ML SYRINGE (J1650 PER 10MG) SC SCH (10:00)
[2020-10-26] MEDS: MULTIVITAMINS/MINERALS THERAP 1 TAB PO SCH (10:00)
[2020-10-26] MEDS: LORATADINE 10 MG TAB PO SCH (10:00)
[2020-10-26] MEDS: DULoxetine 30 MG CAP (CYMBALTA) PO SCH (10:00)
[2020-10-26] MEDS: OCUVITE 1 TAB PO SCH ×2 (10:01→21:43)
[2020-10-26] MEDS: VITAMIN B COMPLEX/VIT C CAP PO SCH (10:01)
[2020-10-26] MEDS: CALCIUM CARBONATE 500 MG CHEW U/D PO SCH ×2 (10:01→21:43)
[2020-10-26] MEDS: LOSARTAN 50MG TABLET PO SCH (10:01)
[2020-10-26] MEDS: VITAMIN D 1,000 INTERNATIONAL UNITS TABLET PO SCH (10:01)
[2020-10-26] MEDS: oxyBUTYnin *DITROPAN XL* 5 MG TABCR PO SCH (10:01)
[2020-10-26] MEDS: PANTOPRAZOLE 20 MG TAB PO SCH (10:01)
[2020-10-26 10:02] LABS: BLOOD UREA NITROGEN 14 MG/DL (7-18); C REACTIVE PROTEIN QUANTITATIV 0.98 MG/DL (0.00-0.30); CALCIUM LEVEL 8.5 MG/DL (8.8-10.2); CARBON DIOXIDE LEVEL 26 MEQ/L (21-32); CHLORIDE LEVEL 102 MEQ/L (98-107); CREATININE FOR GFR 0.74 MG/DL (0.55-1.30); FERRITIN 143 NG/ML (8-252); GLOMERULAR FILTRATION RATE > 60.0 (>32); GLUCOSE, FASTING 74 MG/DL (70-100); POTASSIUM SERUM 3.9 MEQ/L (3.5-5.1); SODIUM LEVEL 135 MEQ/L (136-145)
[2020-10-26 11:11] LABS: D-DIMER QUANT > 4000 ng/ml (<500)
[2020-10-26] MEDS: CLOPIDOGREL 75 MG TAB PO SCH (17:23)
[2020-10-26] MEDS: SIMVASTATIN 20 MG TAB PO SCH (21:43)
[2020-10-27 04:00] VITALS: BP 140/80
[2020-10-27] MEDS: LEVOTHYROXINE 125MCG TABLET (0.125MG) PO SCH (05:49)
[2020-10-27] MEDS: ASPIRIN 81 MG ENTERIC TAB PO SCH (08:58)
[2020-10-27] MEDS: OCUVITE 1 TAB PO SCH ×2 (08:58→21:27)
[2020-10-27] MEDS: VITAMIN B COMPLEX/VIT C CAP PO SCH (08:58)
[2020-10-27] MEDS: LORATADINE 10 MG TAB PO SCH (08:58)
[2020-10-27] MEDS: CALCIUM CARBONATE 500 MG CHEW U/D PO SCH ×2 (08:59→21:27)
[2020-10-27] MEDS: MULTIVITAMINS/MINERALS THERAP 1 TAB PO SCH (08:59)
[2020-10-27] MEDS: PANTOPRAZOLE 20 MG TAB PO SCH (08:59)
[2020-10-27] MEDS: oxyBUTYnin *DITROPAN XL* 5 MG TABCR PO SCH (08:59)
[2020-10-27] MEDS: GABAPENTIN 400 MG CAP PO SCH ×2 (08:59→21:28)
[2020-10-27] MEDS: LOSARTAN 50MG TABLET PO SCH (08:59)
[2020-10-27] MEDS: DULoxetine 30 MG CAP (CYMBALTA) PO SCH (08:59)
[2020-10-27] MEDS: VITAMIN D 1,000 INTERNATIONAL UNITS TABLET PO SCH (08:59)
[2020-10-27] MEDS: NYSTATIN 100,000 UNITS/GM TOPICAL PWD 15 GM TOP SCH ×2 (09:00→21:28)
[2020-10-27] MEDS: ENOXAPARIN 40MG/0.4ML SYRINGE (J1650 PER 10MG) SC SCH (09:00)
[2020-10-27] MEDS: CLOPIDOGREL 75 MG TAB PO SCH (17:19)
[2020-10-27] MEDS: SIMVASTATIN 20 MG TAB PO SCH (21:27)
[2020-10-27] MEDS: ACETAMINOPHEN TAB 650MG DOSE (2X325MG) PO PRN (21:27)
[2020-10-28 04:12] VITALS: BP 136/77
[2020-10-28] MEDS: LEVOTHYROXINE 125MCG TABLET (0.125MG) PO SCH (05:38)
[2020-10-28] MEDS: MULTIVITAMINS/MINERALS THERAP 1 TAB PO SCH (08:46)
[2020-10-28] MEDS: DULoxetine 30 MG CAP (CYMBALTA) PO SCH (08:46)
[2020-10-28] MEDS: ASPIRIN 81 MG ENTERIC TAB PO SCH (08:46)
[2020-10-28] MEDS: VITAMIN B COMPLEX/VIT C CAP PO SCH (08:47)
[2020-10-28] MEDS: CALCIUM CARBONATE 500 MG CHEW U/D PO SCH ×2 (08:47→20:48)
[2020-10-28] MEDS: LOSARTAN 50MG TABLET PO SCH (08:47)
[2020-10-28] MEDS: LORATADINE 10 MG TAB PO SCH (08:47)
[2020-10-28] MEDS: PANTOPRAZOLE 20 MG TAB PO SCH (08:47)
[2020-10-28] MEDS: oxyBUTYnin *DITROPAN XL* 5 MG TABCR PO SCH (08:48)
[2020-10-28] MEDS: GABAPENTIN 400 MG CAP PO SCH ×2 (08:48→20:48)
[2020-10-28] MEDS: OCUVITE 1 TAB PO SCH ×2 (08:48→20:48)
[2020-10-28] MEDS: VITAMIN D 1,000 INTERNATIONAL UNITS TABLET PO SCH (08:48)
[2020-10-28] MEDS: NYSTATIN 100,000 UNITS/GM TOPICAL PWD 15 GM TOP SCH ×2 (08:49→20:50)
[2020-10-28] MEDS: ENOXAPARIN 40MG/0.4ML SYRINGE (J1650 PER 10MG) SC SCH (08:49)
[2020-10-28] MEDS: CLOPIDOGREL 75 MG TAB PO SCH (17:05)
--- NOTE | 2020-10-28 19:59 | IPNPDOC ---
Date Seen The patient was seen on 10/28/20. Progress Note SUBJECTIVE: Patient seen and examined at bedside. Doing very well, sitting upright in chair eating breakfast. On room air. OBJECTIVE PHYSICAL EXAMINATION: VITAL SIGNS: please see below General: NAD, comfortable HEENT: PERRLA, EOMI, sclerae clear Neck: supple, normal ROM, no JVD Respiratory: lungs CTAB, no wheeze, no rales, no crackles CVS: RRR, normal S1, S2, no murmurs Abdo: soft, no masses, no hepatosplenomegaly, BS+, no rebound tenderness Extremities: no edema, pulses 2+ MSK: no joint deformities, normal ROM Neuro: no focal neuro deficits, moving all 4 extremities, CN2-12 intact. Strength 5/5 in all 4 extremities. No nystagmus. Psych: calm, cooperative, AAO x 3 LABORATORY DATA, IMAGING STUDIES, MICROBIOLOGY: Please see below. DVT prophylaxis ordered?: Y ASSESSMENT AND PLAN: 78-year-old female with a history of CVA in 2014, hypertension, hyperlipidemia, hypothyroidism, CHINO on home CPAP. Admitted for management of Covid-19 due to hypoxia on exertion. PROBLEMS: #Covid 19 infection:saturation has improved. On RA at 94%. #Leukopenia: Improved #Hypertension: Low-sodium diet. Continue losartan. #Hyperlipidemia: Statin #CHINO on home CPAP: Could use home CPAP. #Hypothyroidism: Continue levothyroxine #Peripheral neuropathy, colon continuing gabapentin #Depression: Continue duloxetine #History of stroke: Continue Plavix, aspirin. #Urge incontinence: Oxybutynin #History of GERD: Continue PPI DVT prophylaxis: Lovenox DISPOSITION: Currently ALC status. Pending PT evaluation and possible need rehabilitation prior to discharge. VS, I&O, 24H, Fishbone Vital Signs/I&O Vital Signs Date Time Temp Pulse Resp B/P (MAP) Pulse Ox O2 Delivery O2 Flow Rate FiO2 10/28/20 08:47 136/77 10/28/20 04:12 97.3 69 19 91 Room Air 10/24/20 02:00 2.0 10/23/20 09:00 92 I&O- Last 24 Hours up to 6 AM 10/28/20 06:00 Intake Total 900 ml Output Total 650 ml Balance 250 ml Laboratory Data Microbiology Microbiology 10/22/20 Respiratory Virus Panel (PCR) ([facility]) - Final, Complete SARS-CoV-2 (COVID 19) KEYSHAWN MATHEW MD Oct 28, 2020 19:59
[2020-10-28] MEDS: SIMVASTATIN 20 MG TAB PO SCH (20:48)
[2020-10-28] MEDS: ACETAMINOPHEN TAB 650MG DOSE (2X325MG) PO PRN (20:49)
[2020-10-29 04:21] VITALS: BP 125/85
[2020-10-29] MEDS: LEVOTHYROXINE 125MCG TABLET (0.125MG) PO SCH (06:22)
[2020-10-29] MEDS: VITAMIN D 1,000 INTERNATIONAL UNITS TABLET PO SCH (08:41)
[2020-10-29] MEDS: OCUVITE 1 TAB PO SCH ×2 (08:41→21:35)
[2020-10-29] MEDS: DULoxetine 30 MG CAP (CYMBALTA) PO SCH (08:41)
[2020-10-29] MEDS: GABAPENTIN 400 MG CAP PO SCH ×2 (08:41→21:35)
[2020-10-29] MEDS: LORATADINE 10 MG TAB PO SCH (08:41)
[2020-10-29] MEDS: ASPIRIN 81 MG ENTERIC TAB PO SCH (08:41)
[2020-10-29] MEDS: MULTIVITAMINS/MINERALS THERAP 1 TAB PO SCH (08:42)
[2020-10-29] MEDS: oxyBUTYnin *DITROPAN XL* 5 MG TABCR PO SCH (08:42)
[2020-10-29] MEDS: PANTOPRAZOLE 20 MG TAB PO SCH (08:42)
[2020-10-29] MEDS: CALCIUM CARBONATE 500 MG CHEW U/D PO SCH ×2 (08:42→21:35)
[2020-10-29] MEDS: VITAMIN B COMPLEX/VIT C CAP PO SCH (08:42)
[2020-10-29] MEDS: LOSARTAN 50MG TABLET PO SCH (08:43)
[2020-10-29] MEDS: ENOXAPARIN 40MG/0.4ML SYRINGE (J1650 PER 10MG) SC SCH (08:43)
[2020-10-29] MEDS: NYSTATIN 100,000 UNITS/GM TOPICAL PWD 15 GM TOP SCH ×2 (09:09→21:35)
[2020-10-29] MEDS: CLOPIDOGREL 75 MG TAB PO SCH (18:01)
[2020-10-29] MEDS: SIMVASTATIN 20 MG TAB PO SCH (21:35)
[2020-10-30 05:00] VITALS: BP 147/97
[2020-10-30] MEDS: LEVOTHYROXINE 125MCG TABLET (0.125MG) PO SCH (06:09)
[2020-10-30] MEDS: ENOXAPARIN 40MG/0.4ML SYRINGE (J1650 PER 10MG) SC SCH (08:57)
[2020-10-30] MEDS: DULoxetine 30 MG CAP (CYMBALTA) PO SCH (08:58)
[2020-10-30] MEDS: ASPIRIN 81 MG ENTERIC TAB PO SCH (08:58)
[2020-10-30] MEDS: GABAPENTIN 400 MG CAP PO SCH ×2 (08:58→21:16)
[2020-10-30] MEDS: CALCIUM CARBONATE 500 MG CHEW U/D PO SCH ×2 (08:58→21:16)
[2020-10-30] MEDS: OCUVITE 1 TAB PO SCH ×2 (08:58→21:16)
[2020-10-30] MEDS: LORATADINE 10 MG TAB PO SCH (08:58)
[2020-10-30] MEDS: oxyBUTYnin *DITROPAN XL* 5 MG TABCR PO SCH (08:59)
[2020-10-30] MEDS: LOSARTAN 50MG TABLET PO SCH (08:59)
[2020-10-30] MEDS: VITAMIN B COMPLEX/VIT C CAP PO SCH (09:04)
[2020-10-30] MEDS: NYSTATIN 100,000 UNITS/GM TOPICAL PWD 15 GM TOP SCH ×2 (09:04→21:17)
[2020-10-30] MEDS: VITAMIN D 1,000 INTERNATIONAL UNITS TABLET PO SCH (09:04)
[2020-10-30] MEDS: MULTIVITAMINS/MINERALS THERAP 1 TAB PO SCH (09:04)
[2020-10-30] MEDS: PANTOPRAZOLE 20 MG TAB PO SCH (09:04)
--- NOTE | 2020-10-30 15:19 | IPNPDOC ---
Date Seen The patient was seen on 10/30/20. Progress Note SUBJECTIVE: Patient seen and examined at bedside. Doing very well, sitting upright in chair eating breakfast. On room air. OBJECTIVE PHYSICAL EXAMINATION: VITAL SIGNS: please see below General: NAD, comfortable HEENT: PERRLA, EOMI, sclerae clear Neck: supple, normal ROM, no JVD Respiratory: lungs CTAB, no wheeze, no rales, no crackles CVS: RRR, normal S1, S2, no murmurs Abdo: soft, no masses, no hepatosplenomegaly, BS+, no rebound tenderness Extremities: no edema, pulses 2+ MSK: no joint deformities, normal ROM Neuro: no focal neuro deficits, moving all 4 extremities, CN2-12 intact. Strength 5/5 in all 4 extremities. No nystagmus. Psych: calm, cooperative, AAO x 3 LABORATORY DATA, IMAGING STUDIES, MICROBIOLOGY: Please see below. DVT prophylaxis ordered?: Y ASSESSMENT AND PLAN: 78-year-old female with a history of CVA in 2015, hypertension, hyperlipidemia, hypothyroidism, CHINO on home CPAP. Admitted for management of Covid-19 due to hypoxia on exertion. PROBLEMS: Covid 19 infection: saturating well on RA, 94%. Leukopenia: Improved Hypertension: Low-sodium diet. Continue losartan. Hyperlipidemia: Statin CHINO on home CPAP: Could use home CPAP. Hypothyroidism: Continue levothyroxine Peripheral neuropathy, colon continuing gabapentin Depression: Continue duloxetine History of stroke: Continue Plavix, aspirin. Urge incontinence: Oxybutynin History of GERD: Continue PPI DVT prophylaxis: Lovenox DISPOSITION: Currently ALC status. Pending PT evaluation and possible need rehabilitation prior to discharge. VS, I&O, 24H, Fishbone Vital Signs/I&O Vital Signs Date Time Temp Pulse Resp B/P (MAP) Pulse Ox O2 Delivery O2 Flow Rate FiO2 10/30/20 08:59 147/97 10/30/20 05:00 98.9 78 18 94 Room Air 10/24/20 02:00 2.0 I&O- Last 24 Hours up to 6 AM 10/30/20 06:00 Intake Total 240 ml Output Total 0 ml Balance 240 ml Laboratory Data Microbiology Microbiology 10/22/20 Respiratory Virus Panel (PCR) ([facility]) - Final, Complete SARS-CoV-2 (COVID 19) KEYSHAWN MATHEW MD Oct 30, 2020 15:19
[2020-10-30] MEDS: CLOPIDOGREL 75 MG TAB PO SCH (18:00)
[2020-10-30] MEDS: SIMVASTATIN 20 MG TAB PO SCH (21:16)
[2020-10-31] MEDS: LEVOTHYROXINE 125MCG TABLET (0.125MG) PO SCH (06:09)
[2020-10-31 06:15] VITALS: BP 139/71
[2020-10-31] MEDS: ASPIRIN 81 MG ENTERIC TAB PO SCH (09:04)
[2020-10-31] MEDS: ENOXAPARIN 40MG/0.4ML SYRINGE (J1650 PER 10MG) SC SCH (09:04)
[2020-10-31] MEDS: OCUVITE 1 TAB PO SCH ×2 (09:04→20:14)
[2020-10-31] MEDS: oxyBUTYnin *DITROPAN XL* 5 MG TABCR PO SCH (09:05)
[2020-10-31] MEDS: MULTIVITAMINS/MINERALS THERAP 1 TAB PO SCH (09:05)
[2020-10-31] MEDS: VITAMIN D 1,000 INTERNATIONAL UNITS TABLET PO SCH (09:05)
[2020-10-31] MEDS: PANTOPRAZOLE 20 MG TAB PO SCH (09:05)
[2020-10-31] MEDS: VITAMIN B COMPLEX/VIT C CAP PO SCH (09:05)
[2020-10-31] MEDS: NYSTATIN 100,000 UNITS/GM TOPICAL PWD 15 GM TOP SCH ×2 (09:05→20:14)
[2020-10-31] MEDS: DULoxetine 30 MG CAP (CYMBALTA) PO SCH (09:05)
[2020-10-31] MEDS: CALCIUM CARBONATE 500 MG CHEW U/D PO SCH ×2 (09:05→20:14)
[2020-10-31] MEDS: GABAPENTIN 400 MG CAP PO SCH ×2 (09:05→20:14)
[2020-10-31] MEDS: LORATADINE 10 MG TAB PO SCH (09:05)
[2020-10-31] MEDS: LOSARTAN 50MG TABLET PO SCH (09:08)
--- NOTE | 2020-10-31 10:40 | IPNPDOC ---
Date Seen The patient was seen on 10/31/20. Progress Note SUBJECTIVE: Patient seen and examined at bedside. Doing very well, sitting upright in chair eating breakfast. On room air. OBJECTIVE PHYSICAL EXAMINATION: VITAL SIGNS: please see below General: NAD, comfortable HEENT: PERRLA, EOMI, sclerae clear Neck: supple, normal ROM, no JVD Respiratory: lungs CTAB, no wheeze, no rales, no crackles CVS: RRR, normal S1, S2, no murmurs Abdo: soft, no masses, no hepatosplenomegaly, BS+, no rebound tenderness Extremities: no edema, pulses 2+ MSK: no joint deformities, normal ROM Neuro: no focal neuro deficits, moving all 4 extremities, CN2-12 intact. Strength 5/5 in all 4 extremities. No nystagmus. Psych: calm, cooperative, AAO x 3 LABORATORY DATA, IMAGING STUDIES, MICROBIOLOGY: Please see below. DVT prophylaxis ordered?: Y ASSESSMENT AND PLAN: 78-year-old female with a history of CVA in 2014, hypertension, hyperlipidemia, hypothyroidism, CHINO on home CPAP. Admitted for management of Covid-19 due to hypoxia on exertion. PROBLEMS: Covid 19 infection: saturating well on RA, 94%. Leukopenia: Improved Hypertension: Low-sodium diet. Continue losartan. Hyperlipidemia: Statin CHINO on home CPAP: Could use home CPAP. Hypothyroidism: Continue levothyroxine Peripheral neuropathy, colon continuing gabapentin Depression: Continue duloxetine History of stroke: Continue Plavix, aspirin. Urge incontinence: Oxybutynin History of GERD: Continue PPI DVT prophylaxis: Lovenox DISPOSITION: Currently ALC status. Pending PT evaluation and possible need rehabilitation prior to discharge. VS, I&O, 24H, Fishbone Vital Signs/I&O Vital Signs Date Time Temp Pulse Resp B/P (MAP) Pulse Ox O2 Delivery O2 Flow Rate FiO2 10/31/20 09:08 139/71 10/31/20 06:15 98.1 84 17 92 Room Air I&O- Last 24 Hours up to 6 AM 10/31/20 06:00 Intake Total 0 ml Balance 0 ml Laboratory Data Microbiology Microbiology 10/22/20 Respiratory Virus Panel (PCR) ([facility]) - Final, Complete SARS-CoV-2 (COVID 19) KEYSHAWN MATHEW MD Oct 31, 2020 10:40
[2020-10-31] MEDS: CLOPIDOGREL 75 MG TAB PO SCH (17:34)
[2020-10-31] MEDS ORDERED: DICYCLOMINE 10 MG CAP PO ONE (18:00)
[2020-10-31 18:54] LABS: ALBUMIN 3.4 GM/DL (3.2-5.2); ALT/SGPT 36 U/L (12-78); BILIRUBIN,TOTAL 0.4 MG/DL (0.2-1.0); BLOOD UREA NITROGEN 17 MG/DL (7-18); CALCIUM LEVEL 8.4 MG/DL (8.8-10.2); CARBON DIOXIDE LEVEL 23 MEQ/L (21-32); CHLORIDE LEVEL 103 MEQ/L (98-107); CPK CREATINE PHOSPHOKINASE 108 U/L (26-192); GLOMERULAR FILTRATION RATE > 60.0 (>32); GLUCOSE, FASTING 107 MG/DL (70-100); SODIUM LEVEL 137 MEQ/L (136-145); TOTAL PROTEIN 7.4 GM/DL (6.4-8.2)
[2020-10-31] MEDS: SIMVASTATIN 20 MG TAB PO SCH (20:14)
[2020-11-01 04:00] VITALS: BP 134/64
[2020-11-01] MEDS: LEVOTHYROXINE 125MCG TABLET (0.125MG) PO SCH (05:57)
[2020-11-01] MEDS: DULoxetine 30 MG CAP (CYMBALTA) PO SCH (09:21)
[2020-11-01] MEDS: ENOXAPARIN 40MG/0.4ML SYRINGE (J1650 PER 10MG) SC SCH (09:21)
[2020-11-01] MEDS: PANTOPRAZOLE 20 MG TAB PO SCH (09:22)
[2020-11-01] MEDS: OCUVITE 1 TAB PO SCH ×2 (09:22→21:31)
[2020-11-01] MEDS: ASPIRIN 81 MG ENTERIC TAB PO SCH (09:22)
[2020-11-01] MEDS: VITAMIN D 1,000 INTERNATIONAL UNITS TABLET PO SCH (09:22)
[2020-11-01] MEDS: LORATADINE 10 MG TAB PO SCH (09:23)
[2020-11-01] MEDS: oxyBUTYnin *DITROPAN XL* 5 MG TABCR PO SCH (09:23)
[2020-11-01] MEDS: LOSARTAN 50MG TABLET PO SCH (09:23)
[2020-11-01] MEDS: GABAPENTIN 400 MG CAP PO SCH ×2 (09:23→21:31)
[2020-11-01] MEDS: VITAMIN B COMPLEX/VIT C CAP PO SCH (09:23)
[2020-11-01] MEDS: MULTIVITAMINS/MINERALS THERAP 1 TAB PO SCH (09:23)
[2020-11-01] MEDS: CALCIUM CARBONATE 500 MG CHEW U/D PO SCH ×2 (09:24→21:31)
[2020-11-01] MEDS: NYSTATIN 100,000 UNITS/GM TOPICAL PWD 15 GM TOP SCH ×2 (09:24→21:00)
[2020-11-01] MEDS: CLOPIDOGREL 75 MG TAB PO SCH (17:51)
[2020-11-01] MEDS: SIMVASTATIN 20 MG TAB PO SCH (21:31)
[2020-11-02 04:00] VITALS: BP 158/70
[2020-11-02] MEDS: LEVOTHYROXINE 125MCG TABLET (0.125MG) PO SCH (06:27)
[2020-11-02] MEDS: ENOXAPARIN 40MG/0.4ML SYRINGE (J1650 PER 10MG) SC SCH (09:41)
[2020-11-02] MEDS: MULTIVITAMINS/MINERALS THERAP 1 TAB PO SCH (09:41)
[2020-11-02] MEDS: LORATADINE 10 MG TAB PO SCH (09:42)
[2020-11-02] MEDS: GABAPENTIN 400 MG CAP PO SCH ×2 (09:42→21:00)
[2020-11-02] MEDS: CALCIUM CARBONATE 500 MG CHEW U/D PO SCH ×2 (09:42→21:00)
[2020-11-02] MEDS: LOSARTAN 50MG TABLET PO SCH (09:42)
[2020-11-02] MEDS: OCUVITE 1 TAB PO SCH ×2 (09:42→21:00)
[2020-11-02] MEDS: DULoxetine 30 MG CAP (CYMBALTA) PO SCH (09:43)
[2020-11-02] MEDS: VITAMIN D 1,000 INTERNATIONAL UNITS TABLET PO SCH (09:43)
[2020-11-02] MEDS: VITAMIN B COMPLEX/VIT C CAP PO SCH (09:43)
[2020-11-02] MEDS: oxyBUTYnin *DITROPAN XL* 5 MG TABCR PO SCH (09:43)
[2020-11-02] MEDS: ASPIRIN 81 MG ENTERIC TAB PO SCH (09:43)
[2020-11-02] MEDS: PANTOPRAZOLE 20 MG TAB PO SCH (09:43)
[2020-11-02] MEDS: NYSTATIN 100,000 UNITS/GM TOPICAL PWD 15 GM TOP SCH ×2 (09:44→21:00)
--- NOTE | 2020-11-02 10:51 | IPNPDOC ---
Date Seen The patient was seen on 11/02/20. Progress Note SUBJECTIVE: Patient seen and examined at bedside. Doing very well, sitting upright in chair eating breakfast. On room air. OBJECTIVE PHYSICAL EXAMINATION: VITAL SIGNS: please see below General: NAD, comfortable HEENT: PERRLA, EOMI, sclerae clear Neck: supple, normal ROM, no JVD Respiratory: lungs CTAB, no wheeze, no rales, no crackles CVS: RRR, normal S1, S2, no murmurs Abdo: soft, no masses, no hepatosplenomegaly, BS+, no rebound tenderness Extremities: no edema, pulses 2+ MSK: no joint deformities, normal ROM Neuro: no focal neuro deficits, moving all 4 extremities, CN2-12 intact. Strength 5/5 in all 4 extremities. No nystagmus. Psych: calm, cooperative, AAO x 3 LABORATORY DATA, IMAGING STUDIES, MICROBIOLOGY: Please see below. DVT prophylaxis ordered?: Y ASSESSMENT AND PLAN: 78-year-old female with a history of CVA in 2014, hypertension, hyperlipidemia, hypothyroidism, CHINO on home CPAP. Admitted for management of Covid-19 due to hypoxia on exertion. PROBLEMS: Covid 19 infection: saturating well on RA, 94%. No SOB. Leukopenia: Improved. Check CBC with dif 11/02/20. Dark urine: BMP 10/31/20 normal renal fn. UA + LE, asympatomatic. Urine culture pending. Repeat BMP 11/02/20. Hypertension: Low-sodium diet. Continue losartan. Hyperlipidemia: Statin CHINO on home CPAP: Could use home CPAP. Hypothyroidism: Continue levothyroxine Peripheral neuropathy, colon continuing gabapentin Depression: Continue duloxetine History of stroke: Continue Plavix, aspirin. Urge incontinence: Oxybutynin History of GERD: Continue PPI DVT prophylaxis: Lovenox DISPOSITION: Currently ALC status. PT cleared patient for transfer to [facility] when medically clear. Will order repeat covid-19 test 11/02/20. VS, I&O, 24H, Fishbone Vital Signs/I&O Vital Signs Date Time Temp Pulse Resp B/P (MAP) Pulse Ox O2 Delivery O2 Flow Rate FiO2 11/02/20 09:42 158/70 11/02/20 04:00 97.8 84 18 94 Room Air I&O- Last 24 Hours up to 6 AM 11/02/20 06:00 Intake Total 660 ml Output Total 300 ml Balance 360 ml Laboratory Data 24H LABS Laboratory Tests 2 11/01/20 11:17: Urine Color ADONIS, Urine Appearance CLOUDYH, Urine pH 6.0, Urine Specific [place] 1.026, Urine Protein 1+H, Urine Glucose (UA) NEGATIVE, Urine Ketones NEGATIVE, Urine Blood NEGATIVE, Urine Nitrite NEGATIVE, Urine Bilirubin NEGATIVE, Urine Urobilinogen 0.2, Urine Leukocyte Esterase 2+H, Urine WBC (Auto) 21H, Urine RBC (Auto) 2, Urine Hyaline Casts (Auto) 0, Urine Bacteria (Auto) NEGATIVE, Urine Squamous Epithelial Cells 2, Urine Renal Epithelial Cells 1, Urine Mucus (Auto) SMALL, Urine Sperm (Auto) Microbiology Microbiology 11/01/20 Urine Culture, Received Pending KEYSHAWN MATHEW MD Nov 02, 2020 10:51
[2020-11-02 11:25] LABS: BASO % 0.6 % (0.0-1.0); EOS # 0.3 10^3/uL (0.0-0.5); EOS % 5.7 % (0.0-3.0); HEMATOCRIT 34.4 % (36.0-47.0); HEMOGLOBIN 11.3 g/dl (12.0-15.5); LYMPH # 1.4 10^3/uL (1.5-5.0); LYMPH % 27.6 % (24.0-44.0); MEAN CORPUSCULAR HEMOGLOBIN 31.7 pg (27.0-33.0); MEAN CORPUSCULAR HGB CONC 32.8 g/dl (32.0-36.5); MEAN CORPUSCULAR VOLUME 96.6 fl (80.0-96.0); MONO # 0.7 10^3/uL (0.0-0.8); MONO % 13.6 % (0.0-5.0); NEUTROPHILS # 2.6 10^3/uL (1.5-8.5); NEUTROPHILS % 51.9 % (36.0-66.0); PLATELET COUNT, AUTOMATED 347 10^3/uL (150-450); RED BLOOD COUNT 3.56 10^6/uL (4.00-5.40); WHITE BLOOD COUNT 4.9 10^3/uL (4.0-10.0)
[2020-11-02 11:50] LABS: BLOOD UREA NITROGEN 13 MG/DL (7-18); CARBON DIOXIDE LEVEL 26 MEQ/L (21-32); CHLORIDE LEVEL 105 MEQ/L (98-107); CREATININE FOR GFR 0.74 MG/DL (0.55-1.30); GLOMERULAR FILTRATION RATE > 60.0 (>32); GLUCOSE, FASTING 88 MG/DL (70-100); POTASSIUM SERUM 4.3 MEQ/L (3.5-5.1); SODIUM LEVEL 138 MEQ/L (136-145)
[2020-11-02] MEDS: CLOPIDOGREL 75 MG TAB PO SCH (17:07)
[2020-11-02] MEDS: SIMVASTATIN 20 MG TAB PO SCH (21:00)
[2020-11-03 06:17] VITALS: BP 147/71
[2020-11-03] MEDS: LEVOTHYROXINE 125MCG TABLET (0.125MG) PO SCH (06:19)
[2020-11-03 09:00] VITALS: BP 132/84
[2020-11-03] MEDS: NYSTATIN 100,000 UNITS/GM TOPICAL PWD 15 GM TOP SCH (09:00)
[2020-11-03] MEDS: ASPIRIN 81 MG ENTERIC TAB PO SCH (09:08)
[2020-11-03] MEDS: MULTIVITAMINS/MINERALS THERAP 1 TAB PO SCH (09:08)
[2020-11-03] MEDS: CALCIUM CARBONATE 500 MG CHEW U/D PO SCH (09:08)
[2020-11-03 09:09] VITALS: BP 132/84
[2020-11-03] MEDS: PANTOPRAZOLE 20 MG TAB PO SCH (09:09)
[2020-11-03] MEDS: LOSARTAN 50MG TABLET PO SCH (09:09)
[2020-11-03] MEDS: DULoxetine 30 MG CAP (CYMBALTA) PO SCH (09:09)
[2020-11-03] MEDS: VITAMIN B COMPLEX/VIT C CAP PO SCH (09:09)
[2020-11-03] MEDS: LORATADINE 10 MG TAB PO SCH (09:10)
[2020-11-03] MEDS: ENOXAPARIN 40MG/0.4ML SYRINGE (J1650 PER 10MG) SC SCH (09:10)
[2020-11-03] MEDS: oxyBUTYnin *DITROPAN XL* 5 MG TABCR PO SCH (09:10)
[2020-11-03] MEDS: OCUVITE 1 TAB PO SCH (09:10)
[2020-11-03] MEDS: VITAMIN D 1,000 INTERNATIONAL UNITS TABLET PO SCH (09:10)
[2020-11-03] MEDS: GABAPENTIN 400 MG CAP PO SCH (09:10)
--- NOTE | 2020-11-03 11:15 | DS.PDOC ---
Discharge Summary General Date of Admission Oct 22, 2020 at 21:59 Date of Discharge 11/03/20 Discharge Summary PROCEDURES PERFORMED DURING STAY: [None]. ADMITTING DIAGNOSES: 1. . DISCHARGE DIAGNOSES: 1. . COMPLICATIONS/CHIEF COMPLAINT: Covid 19. HISTORY OF PRESENT ILLNESS: . HOSPITAL COURSE: . DISCHARGE MEDICATIONS: Please see below. ALLERGIES: Please see below. PHYSICAL EXAMINATION ON DISCHARGE: VITAL SIGNS: Please see below. GENERAL: HEENT: NECK: CARDIOVASCULAR EXAMINATION: RESPIRATORY EXAMINATION: ABDOMINAL EXAMINATION: EXTREMITIES: SKIN: NEUROLOGICAL EXAMINATION: PSYCHIATRIC EXAMINATION: LABORATORY DATA: Please see below. IMAGING: PROGNOSIS: ACTIVITY: [As tolerated]. DIET: DISCHARGE PLAN: DISPOSITION: . DISCHARGE INSTRUCTIONS: 1. . ITEMS TO FOLLOWUP ON ON OUTPATIENT: 1. . DISCHARGE CONDITION: [Stable]. TIME SPENT ON DISCHARGE: Greater than minutes. Vital Signs/I&Os Vital Signs Date Time Temp Pulse Resp B/P (MAP) Pulse Ox O2 Delivery O2 Flow Rate FiO2 11/03/20 09:09 132/84 11/03/20 06:17 99.0 80 18 93 Room Air I&O- Last 24 Hours up to 6 AM 11/03/20 06:00 Intake Total 400 ml Output Total 0 ml Balance 400 ml Laboratory Data Labs 24H Laboratory Tests 2 11/02/20 11:30: Coronavirus (COVID-19)(PCR) NEGATIVE Microbiology Microbiology 11/01/20 Urine Culture - Final, Complete Strep Agalactiae Group B Discharge Medications Scheduled B-Complex with Vitamin C (Super B Complex-Vitamin C) 1 Each Tablet, 1 TAB PO DAILY, (Reported) Calcium Carbonate (Tums) 500 Mg Chw, 500 MG PO BID, (Reported) Carboxymethylcellulose Sodium (Refresh Tears) 0.5 % Johan, 1 DROP OU TID, (Repo rted) PT KEEPS AT BEDSIDE Cholecalciferol (Vitamin D3) (Vitamin D3) 1,000 Unit Tablet, 2,000 UNITS PO D AILY, (Reported) Clopidogrel Bisulfate (Clopidogrel) 75 Mg Tablet, 75 MG PO QPM, (Reported) STARTED 10/16/2020, TAKES AT 1700 Cyclosporine (Restasis) 0.05 % Emu, 1 DROP OU BID, (Reported) Duloxetine Hcl (Duloxetine HCl) 60 Mg Cap, 60 MG PO DAILY, (Reported) TAKES WITH 30MG FOR TOTAL DOSE 90MG Duloxetine Hcl (Duloxetine HCl) 30 Mg Capsule.dr, 30 MG PO DAILY, (Reported) TAKES WITH 60MG FOR TOTAL DOSE 90MG Fluticasone Propionate (Fluticasone Propionate) 50 Mcg/Act Spr, 2 SPRAY NA DAILY, (Reported) Folic Acid (Folic Acid) 400 Mcg Tab, 400 MCG PO DAILY, (Reported) Gabapentin (Gabapentin) 400 Mg Cap, 800 MG PO QHS, (Reported) Gabapentin (Gabapentin) 400 Mg Cap, 400 MG PO BID, (Reported) 0900, 1400 Levothyroxine Sodium (Levoxyl) 125 Mcg Tab, 62.5 MCG PO QAM, (Reported) Loratadine (Loratadine) 10 Mg Tab, 10 MG PO DAILY, (Reported) Losartan Potassium (Losartan Potassium) 50 Mg Tab, 50 MG PO DAILY, (Reported) Multivitamins (Thera M Plus Tablet) 1 Each Tablet, 1 TAB PO DAILY, (Reported) Oxybutynin Chloride (Oxybutynin Chloride ER) 5 Mg Tab, 5 MG PO DAILY, (Reported) Pantoprazole Sodium (Pantoprazole Sodium) 20 Mg Tab, 20 MG PO DAILY, (Reported) Psyllium Husk/Aspartame (Metamucil Fiber Singles Packet) 51.7 % Kevin, 3.4 GRAM PO DAILY, (Reported) Simvastatin (Zocor) 20 Mg Tab, 20 MG PO QHS, (Reported) Vit A/Vit C/Vit E/Zinc/Copper (Preservision Areds Softgel) 1 Each Capsule, 2 CAP PO BID, (Reported) Scheduled PRN Acetaminophen (Acetaminophen) 500 Mg Tablet, 500 MG PO Q12H PRN for PAIN, (Reported) Albuterol Sulfate (Ventolin Hfa) 18 Gm Hfa.aer.ad, 2 PUFFS INH QID PRN for SOB/WHEEZING, (Reported) Diclofenac Sodium (Voltaren) 1 % Gel, 2 GRAMS TOP QID PRN for PAIN, (Reported) APPLY TO SHOULDER Docusate Sodium (Colace) 100 Mg Cap, 100 MG PO BID PRN for CONSTIPATION, (Reported) Guaifenesin/Dextromethorphan (Guaifenesin Dm Syrup) 1 Syp Syp, 10 ML PO Q4H PRN for COUGH, (Reported) Ibuprofen (Ibuprofen) 200 Mg Tab, 200 MG PO Q6H PRN for PAIN, (Reported) Ibuprofen/Diphenhydramine Cit (Ibuprofen Pm Caplet) 1 Tab Tab, 1 TAB PO QHS PRN for INSOMNIA, (Reported) Lidocaine HCl (Aspercreme) 4 % Cre, 1 DOSE TOP Q6H PRN for PAIN, (Reported) APPLY TO AREAS OF PAIN Magnesium Hydroxide (Milk of Magnesia) 400 Mg/5 Ml Oral.susp, 2,400 MG PO DAILY PRN for CONSTIPATION, (Reported) Meclizine HCl (Meclizine HCl) 25 Mg Tab, 25 MG PO Q6H PRN for DIZZINESS, (Reported) Mupirocin (Mupirocin) 1 Dose/30 Gm Cream, 1 DOSE NA BID PRN for RASH, (Reported) Nystatin (Nystatin Powder) 100,000 Unit/Gm Pow, 1 DOSE TOP BID PRN for RASH, (Reported) APPLY TO AFFECTED AREA UNDER BREASTS AND IN GROIN AREA Phenyleph/Pramoxin/Glycr/W.pet (Preparation H Cream) 1 Cre Cre, 1 DOSE DE QID PRN for HEMORRHOIDS, (Reported) Saliva Substitute Combo No.9 (Biotene) 1 Liq Liq, 1 DOSE PO QID PRN for DRY MOUTH, (Reported) Simethicone (Simethicone) 80 Mg Tab.chew, 80 MG PO QID PRN for GAS PAIN, (Reported) Sodium Chloride (Saline Nasal [place]) 88 Ml [place], 2 SPRAYS NA Q6H PRN for NASAL DRYNESS, (Reported) Allergies Coded Allergies: TAPE (Verified Adverse Reaction, Intermediate, RED AREA, TAKES SKIN OFF, ) KEYSHAWN MATHEW MD Nov 03, 2020 11:15
[2020-11-03] MEDS ORDERED: ASPI81TAEC PO (11:22)
== END 2020-11-03 12:45 | DRG 179 ==
LOC: M ED 19:18 → M ED INP 21:59 → ENRESERV 22:51 → M 4MAIN 10-23 00:50 → M MS5PR 11-02 22:32
PROVIDERS: ADMIT Internal Medicine; ATTEND Internal Medicine Nephrology
DX: U07.1 COVID-19 (principal); I10 Essential (primary) hypertension; Z86.73 Personal history of transient ischemic attack (TIA), and cerebral infarction without residual deficits; E78.5 Hyperlipidemia, unspecified; K21.9 Gastro-esophageal reflux disease without esophagitis; G47.33 Obstructive sleep apnea (adult) (pediatric); F32.9 Major depressive disorder, single episode, unspecified; G62.9 Polyneuropathy, unspecified; E03.9 Hypothyroidism, unspecified

== ENCOUNTER → 2020-10-22 | Outpatient (REF) | payer MEDICARE, MEDICAID ==
[~2020-10-22] MED LIST changes: -BIOTLIQ3 MT; +BIOTLIQ3 PO; +CALC-362 PO; -CHEW500C2 PO; +CLOP75TA2 PO; +MUPI30CR; -MUPI30CR NARES; +PX S0.65; -PX S0.65 NARES
[2020-10-22 15:49] LABS: INFLUENZA A AMPLIFICATION NEGATIVE (NEGATIVE); INFLUENZA B AMPLIFICATION NEGATIVE (NEGATIVE)
== END ==
PROVIDERS: ATTEND Internal Medicine
DX: Z20.828 Contact with and (suspected) exposure to other viral communicable diseases (principal)

== ENCOUNTER 2020-11-03 18:58 | Emergency (ER) | payer MEDICARE, MEDICAID ==
[~2020-11-03 18:58] MED LIST changes: +ASPI81TAEC PO; +CLOP75TA2 PO
[2020-11-03] MEDS ORDERED: OXYMETAZOLINE 0.05% NASAL SPRAY (AFRIN) ONE (20:15)
[2020-11-03 23:36] VITALS: BP 153/74
== END 2020-11-03 23:44 | disposition home or self-care (01) ==
LOC: M ED 18:58
DX: R04.0 Epistaxis (principal); I10 Essential (primary) hypertension; F41.9 Anxiety disorder, unspecified; E78.5 Hyperlipidemia, unspecified

== ENCOUNTER → 2020-11-10 | Outpatient (REF) | payer MEDICARE, MEDICAID ==
[~2020-11-10] MED LIST changes: +ASPI-161 PO; +AUGM875T28 PO
== END ==
PROVIDERS: ATTEND Internal Medicine
DX: Z11.52 Encounter for screening for COVID-19 (principal)

== ENCOUNTER 2020-11-12 07:12 | Emergency (ER) | payer MEDICARE, MEDICAID ==
[~2020-11-12] VITALS: Ht 160 cm; Wt 73.6 kg
[~2020-11-12 07:12] MED LIST changes: -ALEN70TA74 PO; +ALEN70TA82 PO; -ASPI-161 PO; -AUGM875T28 PO
[2020-11-12] MEDS ORDERED: OXYMETAZOLINE 0.05% NASAL SPRAY (AFRIN) STA (08:19)
[2020-11-12] MEDS ORDERED: LOSARTAN 50MG TABLET PO ONE (08:30)
[2020-11-12 09:03] LABS: BASO % 0.5 % (0.0-1.0); EOS # 0.3 10^3/uL (0.0-0.5); EOS % 5.2 % (0.0-3.0); HEMATOCRIT 33.5 % (36.0-47.0); HEMOGLOBIN 10.9 g/dl (12.0-15.5); LYMPH # 1.4 10^3/uL (1.5-5.0); MEAN CORPUSCULAR HGB CONC 32.5 g/dl (32.0-36.5); MEAN CORPUSCULAR VOLUME 98.2 fl (80.0-96.0); MONO # 0.7 10^3/uL (0.0-0.8); NEUTROPHILS # 4.1 10^3/uL (1.5-8.5); PLATELET COUNT, AUTOMATED 398 10^3/uL (150-450); RED BLOOD COUNT 3.41 10^6/uL (4.00-5.40); WHITE BLOOD COUNT 6.5 10^3/uL (4.0-10.0)
[2020-11-12 09:31] LABS: INR 1.05; PROTHROMBIN TIME 13.9 SECONDS (12.5-14.3)
[2020-11-12 09:32] LABS: PARTIAL THROMBOPLASTIN TIME 34.8 SECONDS (24.2-38.5)
[2020-11-12] MEDS ORDERED: ACETAMINOPHEN TAB 650MG DOSE (2X325MG) PO ONE (12:00)
[2020-11-12] MEDS ORDERED: EPINEPHrine 1MG/ML INJ 30ML MD-VIAL XX ONE (13:00)
[2020-11-12 15:08] VITALS: BP 142/92
[2020-11-12] MEDS ORDERED: ASPI-161 PO (23:16)
[2020-11-13] MEDS ORDERED: OCUVTAB4 PO (01:37)
[2020-11-13] MEDS ORDERED: AUGM875T28 PO (01:37)
== END 2020-11-12 16:44 | disposition home or self-care (01) ==
LOC: EDBD 07:12 → M ED 07:12
DX: R04.0 Epistaxis (principal); E78.5 Hyperlipidemia, unspecified; I10 Essential (primary) hypertension; K21.9 Gastro-esophageal reflux disease without esophagitis; E03.9 Hypothyroidism, unspecified; G47.33 Obstructive sleep apnea (adult) (pediatric); Z86.73 Personal history of transient ischemic attack (TIA), and cerebral infarction without residual deficits; F41.9 Anxiety disorder, unspecified; F33.9 Major depressive disorder, recurrent, unspecified; Z79.82 Long term (current) use of aspirin; Z79.899 Other long term (current) drug therapy

== ENCOUNTER 2020-11-12 18:36 | Inpatient (IN) | payer MEDICARE, MEDICAID ==
[~2020-11-12] VITALS: Ht 160 cm; Wt 70.2 kg
[~2020-11-12 18:36] MED LIST changes: +ALEN70TA74 PO; -ALEN70TA82 PO
[2020-11-12 19:23] LABS: BASO # 0.1 10^3/uL (0.0-0.2); BASO % 0.8 % (0.0-1.0); EOS # 0.4 10^3/uL (0.0-0.5); EOS % 5.7 % (0.0-3.0); HEMATOCRIT 33.5 % (36.0-47.0); HEMOGLOBIN 10.9 g/dl (12.0-15.5); LYMPH % 32.3 % (24.0-44.0); MEAN CORPUSCULAR HEMOGLOBIN 31.8 pg (27.0-33.0); MEAN CORPUSCULAR HGB CONC 32.5 g/dl (32.0-36.5); MEAN CORPUSCULAR VOLUME 97.7 fl (80.0-96.0); MONO # 0.8 10^3/uL (0.0-0.8); MONO % 11.9 % (0.0-5.0); NEUTROPHILS # 3.1 10^3/uL (1.5-8.5); PLATELET COUNT, AUTOMATED 405 10^3/uL (150-450); RED BLOOD COUNT 3.43 10^6/uL (4.00-5.40); WHITE BLOOD COUNT 6.3 10^3/uL (4.0-10.0)
[2020-11-12 19:31] LABS: BLOOD UREA NITROGEN 15 MG/DL (7-18); CALCIUM LEVEL 9.2 MG/DL (8.8-10.2); CARBON DIOXIDE LEVEL 29 MEQ/L (21-32); CHLORIDE LEVEL 103 MEQ/L (98-107); CREATININE FOR GFR 0.88 MG/DL (0.55-1.30); GLOMERULAR FILTRATION RATE > 60.0 (>32); GLUCOSE, FASTING 123 MG/DL (70-100); POTASSIUM SERUM 3.8 MEQ/L (3.5-5.1); SODIUM LEVEL 137 MEQ/L (136-145)
[2020-11-12] MEDS ORDERED: OXYMETAZOLINE 0.05% NASAL SPRAY (AFRIN) ONE (20:15)
[2020-11-12] MEDS ORDERED: AMPICILLIN SOD/SULBACTAM SOD 3 GM in D5W MINI-BAG PLUS 100 ML IV ONE (22:15)
[2020-11-12 22:26] VITALS: BP 202/94
[2020-11-12] MEDS ORDERED: hydrALAZINE 20MG/ML 1ML VIAL (J0360 PER 20MG) IV ONE (22:30)
[2020-11-12] MEDS ORDERED: ASPI-161 PO (23:16)
--- NOTE | 2020-11-13 00:25 | HPEPDOC ---
[facility] Medical History & Physical Date of Admission Nov 13, 2020 Date of Service: Nov 13, 2020 History and Physical CHIEF COMPLAINT: epistaxis HISTORY OF PRESENT ILLNESS: 80 yo F [facility] resident with a hx of CVA, HTN, CHINO on CPAP, Hyperthyroid, rest as below, presenting with intractable epistaxis. She was last seen in ED on 11/12/20, and received rhinorocket, with planned outpatient ENT follow up, however returned today from [facility] due to recurrent bleeding. Dr. Dudley was consulted from the ED and has planned patient for OR in the morning. Patient recently admitted for covid-19 treatment, and was discharged on 2019 with a negative covid test. Unable to repeat swab at this time due to epistaxis, as manipulation would exacerbation bleeding significantly. PAST MEDICAL HISTORY: CVA in 2014 Hypertension Hyperlipidemia Obstructive sleep apnea on home CPAP. Hyperthyroidism. GERD Depression. Neuropathy, right lower extremity/right foot follows with neurology as outpatient. Presumed bladder spasms on oxybutynin PAST SURGICAL HISTORY: Appendectomy around 1959 Surgeries on both feet Tubal ligation. Unspecified back surgery in 2014 SOCIAL HISTORY: She lives at [facility]. She is a with her passing away 1998. She has 2 children. 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 FAMILY HISTORY: Mother: , pancreatic cancer Father: , OR 3 brothers: All ; one brother had history of OR ALLERGIES: Please see below. REVIEW OF SYSTEMS: CONSTITUTIONAL: patient denies fevers, chills HEENT: patient denies blurred vision, loss of vision, headache,. CARDIOVASCULAR: patient denies chest pain, palpitations. RESPIRATORY: patient denies shortness of breath, cough, hemoptysis. GASTROINTESTINAL: patient denies abdominal pain, n/v/d, blood in stool. GENITOURINARY: patient denies dysuria, discharge. SKIN: patient denies rashes. MUSCULOSKELETAL: patient denies joint pain, neck pain. NEUROLOGICAL: patient denies focal weakness, numbness, seizures. PSYCHIATRIC: patient denies SI/HI. ENDOCRINE: patient denies polyuria, heat intolerance, cold intolerance. HEMATOLOGIC/LYMPHATIC: patient denies easy bruising. HOME MEDICATIONS: Please see below. PHYSICAL EXAMINATION: VITAL SIGNS: please see below General: NAD, comfortable HEENT: PERRLA, EOMI, sclerae clear, rinorocket in place, small amount of dried blood at nares Neck: supple, normal ROM, no JVD Respiratory: lungs CTAB, no wheeze, no rales, no crackles CVS: RRR, normal S1, S2, no murmurs Abdo: soft, no masses, no hepatosplenomegaly, BS+, no rebound tenderness Extremities: no edema, pulses 2+ MSK: no joint deformities, normal ROM Neuro: no focal neuro deficits, moving all 4 extremities, CN2-12 intact. Strength 5/5 in all 4 extremities. No nystagmus. Psych: calm, cooperative, AAO x 3 LABORATORY DATA: See below. IMAGING: MICROBIOLOGY: Please see below. PLAN: #Intractable epistaxis - bleeding controlled with rhinorocket - Hgb stable, repeat q12h - hold ASA/plavix - planned for OR in am by Dr. Dudley, ENT - NPO after midnight - IVF NS while NPO. #HTN - BP elevated in ED 180s/90s - hydralazine 10 mg IV prn - resume home meds #HLD -Home statin medication continued #CHINO on home CPAP -Patient reports using a home CPAP but is unsure of her pressure settings. Okay for patient to use home CPAP once pressure settings are known #Hypothyroidism -Home levothyroxine #RLE and right foot neuropathy -Home gabapentin #Depression -home duloxetine #H/o CVA, 2014 -will hold ASA and plavix pre-op #H/o GERD -home ppi continued #Overactive bladder -Home oxybutynin continued #DVT prophylaxis: sc lovenox DVT ppx: SCDs, TEDs, avoid chemoppx due to epistaxis. Vital Signs Vital Signs Date Time Temp Pulse Resp B/P (MAP) Pulse Ox O2 Delivery O2 Flow Rate FiO2 11/13/20 00:00 180/88 (118) 11/12/20 23:51 84 97 11/12/20 22:00 18 Room Air 11/12/20 19:45 98.6 Laboratory Data Labs 24H Laboratory Tests 2 11/12/20 18:58: Immature Granulocyte % (Auto) 0.3, Neutrophils (%) (Auto) 49.0, Lymphocytes (%) (Auto) 32.3, Monocytes (%) (Auto) 11.9H, Eosinophils (%) (Auto) 5.7H, Basophils (%) (Auto) 0.8, Neutrophils # (Auto) 3.1, Lymphocytes # (Auto) 2.0, Monocytes # (Auto) 0.8, Eosinophils # (Auto) 0.4, Basophils # (Auto) 0.1, Nucleated Red Blood Cells % (auto) 0.0, Anion Gap 5L, Glomerular Filtration Rate > 60.0, Calcium Level 9.2 CBC/BMP Laboratory Tests 11/12/20 18:58 Home Medications Scheduled Amoxicillin/Potassium Clav (Augmentin 875-125 Tablet) 1 Each Tablet, 875 MG PO BID 0900, 1700; LAST DOSE TO BE GIVEN AT 0900 ON 11/15/2020 Aspirin (Aspirin EC) 81 Mg Tablet.dr, 81 MG PO DAILY ON HOLD UNTIL 11/16/2020 B-Complex with Vitamin C (Super B Complex-Vitamin C) 1 Each Tablet, 1 TAB PO DAILY Calcium Carbonate (Tums) 500 Mg Chw, 500 MG PO BID Carboxymethylcellulose Sodium (Refresh Tears) 0.5 % Johan, 1 DROP OU TID Cholecalciferol (Vitamin D3) (Vitamin D3) 1,000 Unit Tablet, 2,000 UNITS PO DAILY Clopidogrel Bisulfate (Clopidogrel) 75 Mg Tablet, 75 MG PO QPM ON HOLD UNTIL 11/16/2020, TAKES AT 1700 Cyclosporine (Restasis) 0.05 % Emu, 1 DROP OU BID Duloxetine Hcl (Duloxetine HCl) 60 Mg Cap, 60 MG PO DAILY TAKES WITH 30MG FOR TOTAL DOSE 90MG Duloxetine Hcl (Duloxetine HCl) 30 Mg Capsule.dr, 30 MG PO DAILY TAKES WITH 60MG FOR TOTAL DOSE 90MG Fluticasone Propionate (Fluticasone Propionate) 50 Mcg/Act Spr, 2 SPRAY NA DAILY Folic Acid (Folic Acid) 400 Mcg Tab, 400 MCG PO DAILY Gabapentin (Gabapentin) 400 Mg Cap, 800 MG PO QHS Gabapentin (Gabapentin) 400 Mg Cap, 400 MG PO BID 0900, 1400 Levothyroxine Sodium (Levoxyl) 125 Mcg Tab, 62.5 MCG PO DAILY Loratadine (Loratadine) 10 Mg Tab, 10 MG PO DAILY Losartan Potassium (Losartan Potassium) 50 Mg Tab, 50 MG PO DAILY Multivitamins (Thera M Plus Tablet) 1 Each Tablet, 1 TAB PO DAILY Oxybutynin Chloride (Oxybutynin Chloride ER) 5 Mg Tab, 5 MG PO DAILY Pantoprazole Sodium (Pantoprazole Sodium) 20 Mg Tab, 20 MG PO DAILY Psyllium Husk/Aspartame (Metamucil Fiber Singles Packet) 51.7 % Kevin, 3.4 GRAM PO DAILY Simvastatin (Zocor) 20 Mg Tab, 20 MG PO QHS Vit A/Vit C/Vit E/Zinc/Copper (Preservision Areds Tablet) 1 Each Tablet, 2 TAB PO BID 0900, 1600 Scheduled PRN Acetaminophen (Acetaminophen) 500 Mg Tablet, 500 MG PO Q12H PRN for PAIN Albuterol Sulfate (Ventolin Hfa) 18 Gm Hfa.aer.ad, 2 PUFFS INH QID PRN for SOB/ WHEEZING Diclofenac Sodium (Voltaren) 1 % Gel, 2 GRAMS TOP QID PRN for PAIN APPLY TO SHOULDER Docusate Sodium (Colace) 100 Mg Cap, 100 MG PO BID PRN for CONSTIPATION Guaifenesin/Dextromethorphan (Guaifenesin Dm Syrup) 1 Syp Syp, 10 ML PO Q4H PRN for COUGH Ibuprofen (Ibuprofen) 200 Mg Tab, 200 MG PO Q6H PRN for PAIN Lidocaine HCl (Aspercreme) 4 % Cre, 1 DOSE TOP Q6H PRN for PAIN APPLY TO AREAS OF PAIN Magnesium Hydroxide (Milk of Magnesia) 400 Mg/5 Ml Oral.susp, 2,400 MG PO DAILY PRN for CONSTIPATION Meclizine HCl (Meclizine HCl) 25 Mg Tab, 25 MG PO Q6H PRN for DIZZINESS Mupirocin (Mupirocin) 1 Dose/30 Gm Cream, 1 DOSE NA BID PRN for RASH Nystatin (Nystatin Powder) 100,000 Unit/Gm Pow, 1 DOSE TOP BID PRN for RASH APPLY TO AFFECTED AREA UNDER BREASTS AND IN GROIN AREA Phenyleph/Pramoxin/Glycr/W.pet (Preparation H Cream) 1 Cre Cre, 1 DOSE [place] QID PRN for HEMORRHOIDS Saliva Substitute Combo No.9 (Biotene) 1 Liq Liq, 1 DOSE PO QID PRN for DRY MOUTH Simethicone (Simethicone) 80 Mg Tab.chew, 80 MG PO QID PRN for GAS PAIN Sodium Chloride (Saline Nasal [place]) 88 Ml [place], 2 SPRAYS NA Q3HP PRN for NOSEBLEED OR DRY NOSE Allergies Coded Allergies: TAPE (Verified Adverse Reaction, Intermediate, RED AREA, TAKES SKIN OFF, 07/23/15) KEYSHAWN MATHEW MD Nov 13, 2020 00:25
[2020-11-13] MEDS ORDERED: AUGM875T28 PO (01:37)
[2020-11-13] MEDS ORDERED: OCUVTAB4 PO (01:37)
[2020-11-13 01:40] LABS: BASO # 0.1 10^3/uL (0.0-0.2); BASO % 0.8 % (0.0-1.0); EOS # 0.4 10^3/uL (0.0-0.5); EOS % 4.7 % (0.0-3.0); HEMATOCRIT 34.3 % (36.0-47.0); LYMPH # 2.2 10^3/uL (1.5-5.0); MEAN CORPUSCULAR HEMOGLOBIN 31.6 pg (27.0-33.0); MEAN CORPUSCULAR HGB CONC 32.1 g/dl (32.0-36.5); MEAN CORPUSCULAR VOLUME 98.6 fl (80.0-96.0); MONO # 0.9 10^3/uL (0.0-0.8); MONO % 11.3 % (0.0-5.0); NEUTROPHILS # 4.6 10^3/uL (1.5-8.5); NEUTROPHILS % 55.7 % (36.0-66.0); PLATELET COUNT, AUTOMATED 399 10^3/uL (150-450); RED BLOOD COUNT 3.48 10^6/uL (4.00-5.40); WHITE BLOOD COUNT 8.3 10^3/uL (4.0-10.0)
[2020-11-13] MEDS ORDERED: NYSTATIN 100,000 UNITS/GM TOPICAL PWD 15 GM TOP PRN (01:45)
[2020-11-13] MEDS ORDERED: DOCUSATE SODIUM 100MG CAPSULE PO PRN (01:45)
[2020-11-13] MEDS ORDERED: guaiFENesin DM LIQ 10ML UD PO PRN (01:45)
[2020-11-13] MEDS ORDERED: ACETAMINOPHEN 500 MG TAB PO PRN (01:45)
[2020-11-13] MEDS ORDERED: SIMETHICONE 80 MG CHEW TAB PO PRN (01:45)
[2020-11-13] MEDS ORDERED: MECLIZINE 25 MG TABLET PO PRN (01:45)
[2020-11-13] MEDS ORDERED: ALBUTEROL 90 MCG/ACT 8GM HFA INHALER INH PRN (01:45)
[2020-11-13 02:07] LABS: BLOOD UREA NITROGEN 16 MG/DL (7-18); CALCIUM LEVEL 9.1 MG/DL (8.8-10.2); CARBON DIOXIDE LEVEL 25 MEQ/L (21-32); CHLORIDE LEVEL 106 MEQ/L (98-107); CREATININE FOR GFR 0.81 MG/DL (0.55-1.30); GLOMERULAR FILTRATION RATE > 60.0 (>32); GLUCOSE, FASTING 109 MG/DL (70-100); POTASSIUM SERUM 3.9 MEQ/L (3.5-5.1); SODIUM LEVEL 137 MEQ/L (136-145)
[2020-11-13 04:20] VITALS: BP 168/78
[2020-11-13] MEDS: LEVOTHYROXINE 62.5MCG PER 1/2 TAB (0.0625MG) PO SCH (05:57)
[2020-11-13] MEDS: AMPICILLIN SOD/SULBACTAM SOD 3 GM in D5W MINI-BAG PLUS 100 ML IV SCH ×4 (06:09→23:36)
[2020-11-13] MEDS: VITAMIN D 1,000 INTERNATIONAL UNITS TABLET PO SCH (08:17)
[2020-11-13] MEDS: MULTIVITAMINS/MINERALS THERAP 1 TAB PO SCH (08:17)
[2020-11-13] MEDS: DULoxetine 30 MG CAP (CYMBALTA) PO SCH (08:17)
[2020-11-13] MEDS: PANTOPRAZOLE 20 MG TAB PO SCH (08:17)
[2020-11-13] MEDS: LORATADINE 10 MG TAB PO SCH (08:17)
[2020-11-13] MEDS: VITAMIN B COMPLEX/VIT C CAP PO SCH (08:17)
[2020-11-13] MEDS: GABAPENTIN 400 MG CAP PO SCH ×2 (08:17→14:00)
[2020-11-13] MEDS: CALCIUM CARBONATE 500 MG CHEW U/D PO SCH ×2 (08:17→19:56)
[2020-11-13] MEDS: oxyBUTYnin *DITROPAN XL* 5 MG TABCR PO SCH (08:17)
[2020-11-13] MEDS: FLUTICASONE PROP 0.05% NASAL SPRAY 16 GM (FLONASE) SCH (08:18)
[2020-11-13] MEDS ORDERED: DULoxetine 30 MG CAP (CYMBALTA) PO SCH (09:00)
[2020-11-13] MEDS ORDERED: ASPIRIN 81 MG ENTERIC TAB PO SCH (09:00)
[2020-11-13] MEDS ORDERED: MIDAZOLAM INJ 2MG/2ML VIAL (J2250 PER 1MG) As Ordered ONE (14:18)
[2020-11-13] MEDS ORDERED: fentaNYL 100 MCG/2 ML INJECTION (J3010) As Ordered ONE ×2 (14:18→15:12)
[2020-11-13] MEDS ORDERED: SUGAMMADEX SODIUM 500 MG/5 ML VIAL (BRIDION) As Ordered ONE (14:18)
[2020-11-13] MEDS ORDERED: LIDOCAINE 2% 100MG/5ML SDV (FOR ANES.) As Ordered ONE (14:18)
[2020-11-13] MEDS ORDERED: dexameTHASONE 4 MG/ML 1ML VIAL (J1100 PER 1MG) As Ordered ONE (14:18)
[2020-11-13] MEDS ORDERED: propofoL 200 MG/20 ML VIAL As Ordered ONE (14:18)
[2020-11-13] MEDS ORDERED: ROCURONIUM BROMIDE 50 MG/5 ML VIAL As Ordered ONE (14:18)
[2020-11-13] MEDS ORDERED: ONDANSETRON 4MG/2ML VIAL As Ordered ONE (14:18)
[2020-11-13] MEDS ORDERED: METHYLENE BLUE 0.5% (5MG/ML) 10 ML AMP (PROVAYBLUE) As Ordered ONE (14:24)
[2020-11-13] MEDS ORDERED: LIDOCAINE W/EPINEPHRINE 1% 20ML VIAL As Ordered ONE (14:24)
[2020-11-13] MEDS ORDERED: EPINEPHrine 1MG/ML INJ 30ML MD-VIAL As Ordered ONE (14:25)
[2020-11-13] MEDS ORDERED: LABETALOL 100MG/20ML VIAL As Ordered ONE (15:44)
[2020-11-13] MEDS ORDERED: LR 1,000 ML IV SCH (16:45)
[2020-11-13] MEDS ORDERED: ACETAMINOPH W/CODEINE #3 TAB UD PO PRN (16:45)
--- NOTE | 2020-11-13 17:01 | RO ---
PROCEDURE NOTE DATE OF PROCEDURE: 11/13/2020 PROCEDURE PERFORMED: Left nasal cautery in multiple places under local anesthesia with electrocautery. INDICATIONS FOR PROCEDURE: Patient was seen with a history of recurrent epistaxis. It had been going on for a few days. She had been to the emergency department. She is on Plavix and aspirin. The bleeding seems to be worse on the left side. She had her nose packed without success. Otherwise, the patient is healthy. She has no other history suggestive of coagulopathy. On examination, I could see that there were some areas where the mucosa was irritated on the left side of her nose. This may have been because of the packing that was placed in her nose. DESCRIPTION OF PROCEDURE: I infiltrated the nose with Lidocaine and epinephrine. Then using suction cautery, I cauterized these areas. There was no bleeding afterwards. The patient was observed for more than an hour. There was no further bleeding so the patient was transferred back home. IMPRESSION: Epistaxis.
--- NOTE | 2020-11-13 17:07 | RO ---
OPERATIVE NOTE DATE OF OPERATION: 11/13/2020 PREOPERATIVE DIAGNOSIS: Recurrent epistaxis. POSTOPERATIVE DIAGNOSIS: Recurrent epistaxis. OPERATIVE PROCEDURE: 1. Left nasal cautery. 2. Left sphenopalatine artery ligation. FINDINGS: There was a raw area on the septum on the left side. There was nothing on the right side. There was some blood in the ostiomeatal complex area, as well as a blister just superior to the natural sinus ostium of the left maxillary sinus. PROCEDURE IN DETAIL: I removed a bit of bone so that I could gain access to where the sphenopalatine artery was. I localized the artery using dissection. I used pledgets of adrenaline 1:1000. I then put a number of hemoclips on the artery. I then cauterized various areas both around the ostiomeatal complex and on the septum. The patient tolerated the procedure well. ESTIMATED BLOOD LOSS: Less than 25 mL. DISPOSITION: The patient was extubated and transferred to the recovery room in excellent condition.
[2020-11-13 17:20] VITALS: BP 145/72
[2020-11-13 18:30] VITALS: BP 142/84
[2020-11-13] MEDS ORDERED: CLOPIDOGREL 75 MG TAB PO SCH (21:00)
[2020-11-13] MEDS ORDERED: SIMVASTATIN 20 MG TAB PO SCH (21:00)
[2020-11-13] MEDS ORDERED: GABAPENTIN 400 MG CAP PO SCH (21:00)
[2020-11-13 22:00] VITALS: BP 98/65
[2020-11-14 02:00] VITALS: BP 127/71
[2020-11-14] MEDS: LEVOTHYROXINE 62.5MCG PER 1/2 TAB (0.0625MG) PO SCH (05:53)
[2020-11-14] MEDS: AMPICILLIN SOD/SULBACTAM SOD 3 GM in D5W MINI-BAG PLUS 100 ML IV SCH ×2 (05:53→11:17)
[2020-11-14 06:00] VITALS: BP 129/66
[2020-11-14] MEDS: FLUTICASONE PROP 0.05% NASAL SPRAY 16 GM (FLONASE) SCH (09:00)
[2020-11-14] MEDS: MULTIVITAMINS/MINERALS THERAP 1 TAB PO SCH (09:01)
[2020-11-14] MEDS: VITAMIN B COMPLEX/VIT C CAP PO SCH (09:01)
[2020-11-14] MEDS: DULoxetine 30 MG CAP (CYMBALTA) PO SCH (09:02)
[2020-11-14] MEDS: VITAMIN D 1,000 INTERNATIONAL UNITS TABLET PO SCH (09:02)
[2020-11-14] MEDS: oxyBUTYnin *DITROPAN XL* 5 MG TABCR PO SCH (09:03)
[2020-11-14] MEDS: LORATADINE 10 MG TAB PO SCH (09:04)
[2020-11-14] MEDS: PANTOPRAZOLE 20 MG TAB PO SCH (09:04)
[2020-11-14] MEDS: CALCIUM CARBONATE 500 MG CHEW U/D PO SCH (09:04)
[2020-11-14] MEDS: GABAPENTIN 400 MG CAP PO SCH (09:04)
--- NOTE | 2020-11-14 10:41 | DS.PDOC ---
Discharge Summary General Date of Admission Nov 13, 2020 at 00:45 Date of Discharge 11/14/2020, discharged TO [facility] Discharge Summary SECURITY ESCORT : DR. MELANIE DUDLEY EAR, NOSE AND THROAT SURGERY DISCHARGE DIAGNOSES: Recurrent epistaxis in the setting of chronic aspirin and Plavix for CVA CVA in 2014 Hypertension Hyperlipidemia Obstructive sleep apnea on home CPAP. Hyperthyroidism. GERD Depression. Neuropathy, right lower extremity/right foot bladder spasms DISCHARGE MEDICATIONS: Please see below. DISCHARGE INSTRUCTIONS: per ENT, Dr. Dudley -activitylevel, timing of resumption of antiplatelet medications aspirin, Plavix, postop follow-up appointment as recommended pcp 1 week follow-up appointment ALLERGIES: Please see below. HOSPITAL COURSE: 80-year-old female with history of CVA in 2014, on chronic aspirin and Plavix [facility] resident's presented to the emergency room with intractable epistaxis was previously seen on 11/12/2020 had a Rhino Rocket with planned outpatient ENT follow-up appointment had recurrent bleeding and brought in to the OR by ENT to control bleeding. On 11/13/2020 patient had left cautery and left splenocolic [place] artery ligation with no postop complications. She was observed overnight with no other acute issues. She did admit to blowing her nose, which are surgeons that should not be done for the time being Her hemoglobin and hematocrit remained stable, did not require blood transfusion. Her aspirin and Plavix were held due to recurrent epistaxis and to be resumed per ENT recommendations as outpatient PHYSICAL EXAMINATION ON DISCHARGE: VITAL SIGNS: Please see below. General: NAD, comfortable . No conversational dyspnea. Able to speak in full sen tences , No pallor, no cyanosis HEENT: PERRLA, EOMI, sclerae clear, dried clots. Bilateral nares Neck: supple, normal ROM, no JVD : lungs CTAB, no wheeze, no rales, no crackles. No adventitious breath sounds CVS: RRR, normal S1, S2, no murmurs. Nondisplaced PMI Abdo: soft, no masses, no hepatosplenomegaly, BS+, no rebound tenderness Extremities: no edema, pulses 2+ LABORATORY DATA: Please see below DATE OF OPERATION: 11/13/2020 PREOPERATIVE DIAGNOSIS: Recurrent epistaxis. POSTOPERATIVE DIAGNOSIS: Recurrent epistaxis. OPERATIVE PROCEDURE: 1. Left nasal cautery. 2. Left sphenopalatine artery ligation. FINDINGS: There was a raw area on the septum on the left side. There was nothing on the right side. There was some blood in the ostiomeatal complex area, as well as a blister just superior to the natural sinus ostium of the left maxillary sinus. PROCEDURE IN DETAIL: I removed a bit of bone so that I could gain access to where the sphenopalatine artery was. I localized the artery using dissection. I used pledgets of adrenaline 1:1000. I then put a number of hemoclips on the artery. I then cauterized various areas both around the ostiomeatal complex and on the septum. The patient tolerated the procedure well. ESTIMATED BLOOD LOSS: Less than 25 mL. DISPOSITION: The patient was extubated and transferred to the recovery room in excellent condition. DD: MELANIE DUDLEY MD 11/13/20 1545 TIME SPENT ON DISCHARGE: 30 minutes. Vital Signs/I&Os Vital Signs Date Time Temp Pulse Resp B/P (MAP) Pulse Ox O2 Delivery O2 Flow Rate FiO2 11/14/20 06:00 98.7 79 18 129/66 (87) 93 Room Air 11/13/20 20:00 1.0 I&O- Last 24 Hours up to 6 AM 11/14/20 06:00 Intake Total 1140 ml Output Total 625 ml Balance 515 ml Microbiology Microbiology 11/13/20 Respiratory Virus Panel (PCR) ([facility]) - Final, Complete Discharge Medications Scheduled Amoxicillin/Potassium Clav (Augmentin 875-125 Tablet) 1 Each Tablet, 875 MG PO BID, (Reported) 0900, 1700; LAST DOSE TO BE GIVEN AT 0900 ON 11/15/2020 B-Complex with Vitamin C (Super B Complex-Vitamin C) 1 Each Tablet, 1 TAB PO DAILY, (Reported) Calcium Carbonate (Tums) 500 Mg Chw, 500 MG PO BID, (Reported) Carboxymethylcellulose Sodium (Refresh Tears) 0.5 % Johan, 1 DROP OU TID, (Reported) Cholecalciferol (Vitamin D3) (Vitamin D3) 1,000 Unit Tablet, 2,000 UNITS PO DAILY, (Reported) Cyclosporine (Restasis) 0.05 % Emu, 1 DROP OU BID, (Reported) Duloxetine Hcl (Duloxetine HCl) 60 Mg Cap, 60 MG PO DAILY, (Reported) TAKES WITH 30MG FOR TOTAL DOSE 90MG Duloxetine Hcl (Duloxetine HCl) 30 Mg Capsule.dr, 30 MG PO DAILY, (Reported) TAKES WITH 60MG FOR TOTAL DOSE 90MG Fluticasone Propionate (Fluticasone Propionate) 50 Mcg/Act Spr, 2 SPRAY NA DAILY, (Reported) Folic Acid (Folic Acid) 400 Mcg Tab, 400 MCG PO DAILY, (Reported) Gabapentin (Gabapentin) 400 Mg Cap, 800 MG PO QHS, (Reported) Gabapentin (Gabapentin) 400 Mg Cap, 400 MG PO BID, (Reported) 0900, 1400 Levothyroxine Sodium (Levoxyl) 125 Mcg Tab, 62.5 MCG PO DAILY, (Reported) Loratadine (Loratadine) 10 Mg Tab, 10 MG PO DAILY, (Reported) Losartan Potassium (Losartan Potassium) 50 Mg Tab, 50 MG PO DAILY, (Reported) Multivitamins (Thera M Plus Tablet) 1 Each Tablet, 1 TAB PO DAILY, (Reported) Oxybutynin Chloride (Oxybutynin Chloride ER) 5 Mg Tab, 5 MG PO DAILY, (Reported) Pantoprazole Sodium (Pantoprazole Sodium) 20 Mg Tab, 20 MG PO DAILY, (Reported) Psyllium Husk/Aspartame (Metamucil Fiber Singles Packet) 51.7 % Kevin, 3.4 GRAM PO DAILY, (Reported) Simvastatin (Zocor) 20 Mg Tab, 20 MG PO QHS, (Reported) Vit A/Vit C/Vit E/Zinc/Copper (Preservision Areds Tablet) 1 Each Tablet, 2 TAB PO BID, (Reported) 0900, 1600 Scheduled PRN Acetaminophen (Acetaminophen) 500 Mg Tablet, 500 MG PO Q12H PRN for PAIN, (Reported) Albuterol Sulfate (Ventolin Hfa) 18 Gm Hfa.aer.ad, 2 PUFFS INH QID PRN for SOB/WHEEZING, (Reported) Diclofenac Sodium (Voltaren) 1 % Gel, 2 GRAMS TOP QID PRN for PAIN, (Reported) APPLY TO SHOULDER Docusate Sodium (Colace) 100 Mg Cap, 100 MG PO BID PRN for CONSTIPATION, (Reported) Guaifenesin/Dextromethorphan (Guaifenesin Dm Syrup) 1 Syp Syp, 10 ML PO Q4H PRN for COUGH, (Reported) Ibuprofen (Ibuprofen) 200 Mg Tab, 200 MG PO Q6H PRN for PAIN, (Reported) Lidocaine HCl (Aspercreme) 4 % Cre, 1 DOSE TOP Q6H PRN for PAIN, (Reported) APPLY TO AREAS OF PAIN Magnesium Hydroxide (Milk of Magnesia) 400 Mg/5 Ml Oral.susp, 2,400 MG PO DAILY PRN for CONSTIPATION, (Reported) Meclizine HCl (Meclizine HCl) 25 Mg Tab, 25 MG PO Q6H PRN for DIZZINESS, (Reported) Mupirocin (Mupirocin) 1 Dose/30 Gm Cream, 1 DOSE NA BID PRN for RASH, (Reported) Nystatin (Nystatin Powder) 100,000 Unit/Gm Pow, 1 DOSE TOP BID PRN for RASH, (Reported) APPLY TO AFFECTED AREA UNDER BREASTS AND IN GROIN AREA Phenyleph/Pramoxin/Glycr/W.pet (Preparation H Cream) 1 Cre Cre, 1 DOSE [place] QID PRN for HEMORRHOIDS, (Reported) Saliva Substitute Combo No.9 (Biotene) 1 Liq Liq, 1 DOSE PO QID PRN for DRY MOUTH, (Reported) Simethicone (Simethicone) 80 Mg Tab.chew, 80 MG PO QID PRN for GAS PAIN, (Reported) Sodium Chloride (Saline Nasal [place]) 88 Ml [place], 2 SPRAYS NA Q3HP PRN for NOSEBLEED OR DRY NOSE, (Reported) Allergies Coded Allergies: TAPE (Verified Adverse Reaction, Intermediate, RED AREA, TAKES SKIN OFF, 07/23/15) AMBROSIO WALKER MD Nov 14, 2020 10:41
== END 2020-11-14 13:55 | DRG 813 ==
LOC: M ED 18:36 → EDBD 18:36 → M ED INP 11-13 00:45 → M MS5PR 11-13 04:10
PROVIDERS: ADMIT Family Medicine; ATTEND General Practice
PROC: 095K3ZZ Destruction of Nasal Mucosa and Soft Tissue, Percutaneous Approach (ICD-10-PCS; 2020-11-13)
PROC: 095K3ZZ Destruction of Nasal Mucosa and Soft Tissue, Percutaneous Approach (ICD-10-PCS; principal; 2020-11-13 14:15)
DX: D68.32 Hemorrhagic disorder due to extrinsic circulating anticoagulants (principal); R04.0 Epistaxis; E78.5 Hyperlipidemia, unspecified; I10 Essential (primary) hypertension; K21.9 Gastro-esophageal reflux disease without esophagitis; F32.9 Major depressive disorder, single episode, unspecified; G47.33 Obstructive sleep apnea (adult) (pediatric); Z86.73 Personal history of transient ischemic attack (TIA), and cerebral infarction without residual deficits; G62.9 Polyneuropathy, unspecified; Z79.899 Other long term (current) drug therapy; E03.9 Hypothyroidism, unspecified; Z79.82 Long term (current) use of aspirin

== ENCOUNTER → 2020-11-17 | Outpatient (REF) | payer MEDICARE, MEDICAID ==
[~2020-11-17] MED LIST changes: -ALEN70TA74 PO; +ALEN70TA82 PO; +ASPI-161 PO; +AUGM875T28 PO; +HYDR-3490 PO; -HYDR25TAB PO; -LISI-538 PO; -LISI-542 PO; +LISI-898 PO; +LISI20TA33 PO; +SIME80CH5 PO; -SIME80TA PO
== END ==
PROVIDERS: ATTEND Internal Medicine
DX: Z20.822 Contact with and (suspected) exposure to COVID-19 (principal)

== ENCOUNTER → 2020-11-24 | Outpatient (REF) | payer MEDICARE, MEDICAID | PROVIDERS: ATTEND Internal Medicine | DX: Z20.822 Contact with and (suspected) exposure to COVID-19 (principal) ==

== ENCOUNTER → 2020-12-01 | Outpatient (REF) | payer MEDICARE, MEDICAID | PROVIDERS: ATTEND Internal Medicine | DX: Z20.822 Contact with and (suspected) exposure to COVID-19 (principal) ==

== ENCOUNTER → 2020-12-08 | Outpatient (REF) | payer MEDICARE, MEDICAID ==
[~2020-12-08] MED LIST changes: -HYDR-3490 PO; +HYDR25TAB PO; +LISI-538 PO; +LISI-542 PO; -LISI-898 PO; -LISI20TA33 PO; -SIME80CH5 PO; +SIME80TA PO
== END ==
PROVIDERS: ATTEND Internal Medicine
DX: Z20.822 Contact with and (suspected) exposure to COVID-19 (principal)

== ENCOUNTER → 2020-12-15 | Outpatient (REF) | payer MEDICARE, MEDICAID ==
[~2020-12-15] MED LIST changes: +ASPI81TA26 PO; +HYDR-3490 PO; -HYDR25TAB PO; -LISI-538 PO; -LISI-542 PO; +LISI-898 PO; +LISI20TA33 PO; -MUPI30CR; +MUPI30CR TOP; +PLAV1TAB2 PO; +QC A650T3 PO; +SIME80CH5 PO; -SIME80TA PO
== END ==
PROVIDERS: ATTEND Internal Medicine
DX: Z20.822 Contact with and (suspected) exposure to COVID-19 (principal)

== ENCOUNTER → 2020-12-22 | Outpatient (REF) | payer MEDICARE, MEDICAID | PROVIDERS: ATTEND Internal Medicine | DX: Z20.822 Contact with and (suspected) exposure to COVID-19 (principal) ==

== ENCOUNTER 2020-12-25 21:20 | Emergency (ER) | payer MEDICARE, MEDICAID ==
[~2020-12-25] VITALS: Ht 157.5 cm; Wt 71.4 kg
[~2020-12-25 21:20] MED LIST changes: -ASPI81TA26 PO; -PLAV1TAB2 PO; -QC A650T3 PO
--- OUTSIDE RECORDS SUMMARY | 2020-12-25 21:24 | CCD | Continuity of Care Document ---
Author Organization Unknown Address Unknown Phone Unavailable Care Team Providers Care Social Science Professor Name Role Phone Abdirizak Martin MD AUTM [phone] Aayushdre Raul AUTM [phone] Anne Jalloh OD AUTM Unavailable Ian Mora MD AUTM [phone] Yakelin Vieyra MD AUTM [phone] Chinmay Nieto DPJuan Ramon AUTM [phone] [facility] AUTM [phone] Margie Cohen, Maximilian AUTM [phone] [facility]-Assist Sara AUTM [phone] Problems Active Problems Provider Date Benign essential hypertension Yakelin Vieyra M.D. Onset: 05/28/2011 Gastroesophageal reflux disease Yakelin Vieyra M.D. Onse t: 09/19/2011 Osteoarthritis Yakelin Vieyra M.D. Onset: 1 Pure hypercholesterolemia Yakelin Vieyra M.D. Onset: Osteoporosis Yakelin Vieyra M.D. Onset: 1 Hypothyroidism Ruchi Jeronimo FNP Onset: 09/19/2011 Depressive disorder Yakelin Vieyra M.D. Onset: 1 Essential hypertension Yakelin Vieyra M.D. Onset: 2014 Degenerative disorder of macula Yakelin Vieyra M.D. Onse t: 03/20/2019 Hearing loss Yakelin Vieyra M.D. Onset: 9 Obstructive sleep apnea syndrome Yakelin Vieyra M.D. Ons et: 03/20/2019 Disease caused by 2019-nCoV Yakelin Vieyra M.D. Onset: 1 01/05/2020 Social History Type Date Description Comments Sex Unknown ETOH Use Rarely consumes wine ETOH Use consumes 2-3 glasses of wine per day 07/12/12 ETOH Use Consumes 1 glass of wine per day 1/2 cup a wine a day ETOH Use Denies alcohol use 01/23/15 Tobacco Use Start: Unknown End: Unknown Patient is a former smoker X27 YRS 1 PACK A DAY Allergies, Adverse Reactions, Alerts Description No Known Drug Allergies Medications Active Medications SIG Qnty Indications Ordering Provide r Date Tylenol 8 Hour Arthritis Pain 650mg Tablets ER 2-3x/day as needed 60tabs Rowdy Willingham 12/09/2020 Losartan Potassium 50mg Tablets 1 by mouth qhs 30tabs Yakelin Vieyra M.D. 12/09/19 21 Gabapentin 400mg Capsules take 2 capsule by mouth at bedtime 60caps Yakelin Vieyra M.D. 12/[address] take one tablet by mouth daily 30tabs Yakelin Vieyra M.D. 11/03/20 20 Vitamin D 50mcg (2000 Ut) Tablets 1 by mouth daily 90tabs Yakelin Vieyra M.D. 09/15/20 20 Alendronate Sodium 70mg Tablets 1 Tab Weekly On An Empty Stomach With A Full Glass Of H2o. No Food Or Drink For 30 Minutes. DX Osteopenia 12tabs Yakelin Vieyra M.D. 04/18/2020 Duloxetine HCL 30mg Caps DR Part 1 by mouth every day with 60 mg cap 30caps Yakelin Vieyra M.D. 03/21/2020 Metamucil Fiber 51.7% Packet 1 packet in 8oz. of water a day 30units Yakelin Vieyra M.D. 10/07 Bacitracin (External) 500Unit/GM O intment apply bid to wound 15gm Yakelin Vieyra M.D. 06/19 Fiber Powder 3.4 gms qd 35 0gm Yakelin Vieyar M.D. 06/19/2019 Refresh Tears 0.5% Solution 1 drops into both eyes 3 times a day (dry eyes) 30units JANESSA Leblanc 12/18/2018 Biotene Dry Mouth Liquid 1 spray qid prn dry mouth 1Bottle JANESSA Leblanc 12/18/2018 Milk Of Magnesia 400mg/5ML Suspens ion 30mls by mouth daily /prn/ constipation 1Bottdarvin Vieyra M.D. 10/24/2018 Levothyroxine Sodium 125mcg Tablet s 1/2 tab by mouth every day 15tabs Yakelin Vieyra M.D. 1 12/19/2017 Nystatin 203477Xjlm/GM Powder apply to affected area(s) under breast and in groin two times a day as needed 60gm Yakelin Vieyra M.D. 07/25/2018 Loratadine 10mg Tablets 1 by mouth every day 30tabs Yakelin Vieyra M.D. 07/05/20 18 Oxybutynin Chloride ER 5mg Tablets ER 24HR 1 by mouth every day 30tabs Juan Ramon Willingham 06/22/2018 Pantoprazole Sodium 20mg Tablets D R 1 by mouth daily 30tabs Yakelin Vieyra M.D. 06/22/20 18 Spacer For Mdi use as directed 1units Julien Leblanc FINISHING ROOM OPERATOR 11/30/2017 Ventolin HFA 108(90Base) mcg/Act A erosol 2 puffs four times a day as needed 8gm aYkelin quintero M.D. 11/21/2017 Centrum Silver Tablets 1 by mouth everyday 30tabs Yakelin Vieyra M.D. 09/12/20 17 Fluticasone Propionate 50mcg/Act Suspension 2 sprays each nostril daily 16gm Yakelin amrtinez M.D. 08/17/2017 Preparation H 0.25-14-74.9% Ointme nt qid prn for hemorrhoids-may keep at bedside & self apply 57gm Ruchi Jeronimo,JANESSA 07/07/2017 Tums 500mg Chewtabs ch ew 1 tab bid 180units Yakelin Vieyra M.D. 06/15/2017 Simethicone 80mg Chewtabs one tab 4 times daily after meals and at bedtime as needed burping 120units Yakelin Vieyra M.D. 05/17/2017 Colace 100mg Capsules 1 by mouth twice a day as needed for constipation 60caps Rashel Conn, P 03/15/2017 Meclizine HCL 25mg Tablets take one tablet by mouth every 6 hours as needed dizziness 30tabs Yakelin Vieyra M.D. 02/22/2017 Tussin DM 100-10mg/5ML Liquid give 10cc by mouth as needed every 4 hours for cough 118ml Yakelin Vieyra M.D. 01/28/2017 Lumbar Support Cushion [facility] [place] Yakelin Vieyra M.D. 12/01/2015 Aspercreme W/Lidocaine 4% Cream apply a thin layer to affected area every 6 hours prn pain 1unRuchi Johns,[facility] 11/27/2015 Restasis 0.05% Emulsion 1 drop both eyes twice a day further refills must come from eye 120unneeraj Vieyra M.D. 09/08/2015 Meredith Brock W/ Sit [facility] [place] pr[place] Yakelin Vieyra M.D. 08/26/2015 Saline Nasal [place] 0.65% Solution 2 sprays each nostril q 6hrs prn dry nose 1unRuchi Johns FNP 08/26/2015 Duloxetine HCL 60mg Caps DR La take 1 capsule daily po with 30mg tab 30caps Yakelin Vieyra M.D. 01/22/2014 Preservision Areds Tablets 2 tabs by mouth twice a day 120tabs Yakelin Vieyra M.D. 2012 Simvastatin 20mg Tablets take one tablet by mouth qd 30tabs Yakelin Viyera M.D. 05/06/20 Mupirocin 2% Ointment as directed nasal prn bid for rash Unknown Capsaicin 0.025% Cream as nee ded feet Yakelin Vieyra M.D. Voltaren 1% Gel apply 2 grams as needed four times a day for shoulder pain 100gm Yakelin martinez M.D. Clopidogrel Bisulfate 75mg Tablets 1 by mouth every day Neurology Unknown History Medications Amoxicillin/Clavulanate Potassium 875-125mg Tablets take one tablet twice a day for 10 days 20tabs Lisandra Perez MD 11/05/2020 - 11/14/2020 Super B Complex/Vitamin C Tablets 1 by mouth every day 30tabs Yakelin Vieyra M.D. 09/24/20 - 11/19/2020 Medications Administered in Office Medication SIG Qnty Indications Ordering Provider Date Administration Of Flu Vaccine Inj kassyion Yakelin Vieyra M.D. 07/21/20 20 Administration Of Flu Vaccine Inj ection Rashel Conn [facility] 08/31/2017 Administration Of Flu Vaccine Inj kassyion Yakelin Vieyra M.D. 09/21/20 10 Administration Of Flu Vaccine Inj ection Ruchi Jeronimo FNP 08/20/2008 Administration Of Flu Vaccine Inj ection Ruchi Jeronimo FNP 08/31/2007 Administration Of Flu Vaccine Inj kassyion Yakelin Vieyra M.D. 08/31/20 04 Administration Of Flu Vaccine Inj anna Vieyra M.D. 09/26/20 03 Immunizations CPT Code Status Date Vaccine Reaction Lot # [id number] Given 07/21/2020 Influenza Vaccin e Quadrivalent Preser/Antibiotic Free Im Use [id number] U-Flu Given 09/02/2018 Influenza,Unspecified 87295 Given 08/31/2017 Influenza Vaccin e Quadrivalent Preser/Antibiotic Free Im Use [id number] 09860 Given 12/06/2016 Adacel- Tetanus Diphtheria Pertussis (Age64 & Under) [id number] 16985 Given 08/25/2015 PPD 08-27-15 omm negative C [id number] 31186 Given 01/23/2015 Prevnar 13 [id number] 98696 Given 09/21/2010 Influenza Virus Vaccine 16487 Given 12/16/2008 Pneumovax 23 22706 Given 08/20/2008 Influenza Virus Vaccine 16965 Given 08/31/2007 Influenza Virus Vaccine 40200 Given 08/31/2004 Influenza Virus Vaccine 68680 Given 09/26/2003 Influenza Virus Vaccine 20670 Given 09/04/2002 Influenza Virus Vaccine 82183 Given 08/09/2001 Influenza Virus Vaccine Vital Signs Date Vital Result Comment 12/09/2020 10:14am BP Systolic 110 mmHg RT Arm BP Diastolic 70 mmHg RT Arm Heart Rate 92 /min Height 62.75 inches 5'2.75" Weight 165.00 lb BMI (Body Mass Index) 29.5 kg/m2 11/19/2020 9:58am BP Systolic 142 mmHg RT Arm BP Diastolic 80 mmHg RT Arm BP Systolic Recheck 136 mmHg BP Diastolic Recheck 84 mmHg Heart Rate 104 /min Height 62.75 inches 5'2.75" Weight 165.12 lb BMI (Body Mass Index) 29.5 kg/m2 Results Test Acquired Date Facility Test Result H/L Range Note Complete Blood Count 12/09/2020 [facility] Sample Washer: Dr Sharif Perez [place], [place] [id number] [phone] WBC 6.1 x10*3/UL 4.1 - 10.9 RBC 3.33 x10*6/UL Low 4.20 - 6.30 Hemoglobin 11.2 g/dL Low 12.0 - 18.0 Hematocrit 31.6 % Low 37.0 - 51.0 MCV 95.0 fL 80.0 - 97.0 MCH 33.8 pg High 26.0 - 32.0 MCHC 35.6 g/dL 31.0 - 38.0 RDW 14.0 % High 11.6 - 13.7 PLT 392 x10*3/UL 140 - 440 MPV 7.1 FL Low 7.8 - 11.0 Lymph % 27.4 % 10.0 - 58.5 Mid % 6.1 % 1.7 - 9.3 Neut % 66.5 % 37.0 - 92.0 Lymph # 1.6 x10*3/UL 0.6 - 4.1 Mid # 0.5 x10*3/UL 0.1 - 0.6 Neut # 4.0 x10*3/UL 2.0 - 7.8 Basic Metabolic Panel 12/09/2020 [facility] Sample Washer: [place] [address] [phone] Glucose 92 mg/dL 74 - 99 1 BUN 18 mg/dL 7 - 18 Creatinine 0.9 mg/dL 0.6 - 1.3 Sodium 140 mEq/L 136 - 145 Potassium 4.1 mEq/L 3.5 - 5.1 Chloride 102 mEq/L 98 - 107 Carbon Dioxide 27 mEq/L 21 - 32 Calcium 9.5 mg/dL 8.5 - 10.1 GFR 60 mL/min Low >60 GFR >= 60 mL/min >60 2 Laboratory test finding 12/09/2020 [facility] Sample Washer: [place] [address] [phone] Thyroid Stimulating Hormone 2.16 uIU/mL 0.3 6 - 3.74 CBC With Differential 11/12/2020 [facility] [address] [place] [address] [phone] White Blood Count 6.3 10 Normal 4.0-10.0 Red Blood Count 3.43 10 Low 4.00-5.40 Hemoglobin 10.9 g/dL Low 12.0-15.5 Hematocrit 33.5 % Low 36.0-47.0 Mean Corpuscular Volume 97.7 fl High 80.0-96.0 Mean Corpuscular Hemoglobin 31.8 pg Normal 27.0-33.0 Mean Corpuscular HGB Conc 32.5 g/dL Normal 32.0-36.5 Red Cell Distribution Width 12.6 % Normal 11.5-14.5 Platelet Count, Automated 405 10 Normal 150-450 Neutrophils % 49.0 % Normal 36.0-66.0 Lymph % 32.3 % Normal 24.0-44.0 [place] % 11.9 % High 0.0-5.0 Eos % 5.7 % High 0.0-3.0 Baso % 0.8 % Normal 0.0-1.0 Immature Granulocyte % 0.3 % Normal 0-3.0 Nucleated Red Blood Cell % 0.0 % Normal 0-0 Neutrophils # 3.1 10 Normal 1.5-8.5 Lymph # 2.0 10 Normal 1.5-5.0 [place] # 0.8 10 Normal 0.0-0.8 Eos # 0.4 10 Normal 0.0-0.5 Baso # 0.1 10 Normal 0.0-0.2 Basic Metabolic Profile 11/12/[address] [address] [phone] Glucose, Fasting 123 mg/dL High 70-100 Blood Urea Nitrogen 15 mg/dL Normal 7-18 Creatinine For GFR 0.88 mg/dL Normal 0.55-1.30 Glomerular Filtration Rate > 60.0 Normal >32 3 Sodium Level 137 mEq/L Normal 136-145 Potassium Serum 3.8 mEq/L Normal 3.5-5.1 Chloride Level 103 mEq/L Normal 98-107 Carbon Dioxide Level 29 mEq/L Normal 21-32 Anion Gap 5 mEq/L Low 8-16 Calcium Level 9.2 mg/dL Normal 8.8-10.2 Type & Screen -Incl Blood Type,Rick,AB SC 11/12/[address] [address] [phone] Blood Type O POSITIVE Normal AB Screen (Indirect Brionna)Vis NEGATIVE Normal Prothrombin Time/Inr 11/12/2020 [facility] enter [address] [place] [phone] Prothrombin Time 13.9 seconds Normal 12.5-14.3 Inr 1.05 Normal 4 Laboratory test finding 11/12/[address] [address] [phone] Partial Thromboplastin Time 34.8 seconds Normal 24 .2-38.5 CBC With Differential 11/12/[address] [address] [phone] White Blood Count 6.5 10 Normal 4.0-10.0 Red Blood Count 3.41 10 Low 4.00-5.40 Hemoglobin 10.9 g/dL Low 12.0-15.5 Hematocrit 33.5 % Low 36.0-47.0 Mean Corpuscular Volume 98.2 fl High 80.0-96.0 Mean Corpuscular Hemoglobin 32.0 pg Normal 27.0-33.0 Mean Corpuscular HGB Conc 32.5 g/dL Normal 32.0-36.5 Red Cell Distribution Width 12.5 % Normal 11.5-14.5 Platelet Count, Automated 398 10 Normal 150-450 Neutrophils % 63.0 % Normal 36.0-66.0 Lymph % 21.0 % Low 24.0-44.0 [place] % 10.0 % High 0.0-5.0 Eos % 5.2 % High 0.0-3.0 Baso % 0.5 % Normal 0.0-1.0 Immature Granulocyte % 0.3 % Normal 0-3.0 Nucleated Red Blood Cell % 0.0 % Normal 0-0 Neutrophils # 4.1 10 Normal 1.5-8.5 Lymph # 1.4 10 Low 1.5-5.0 [place] # 0.7 10 Normal 0.0-0.8 Eos # 0.3 10 Normal 0.0-0.5 Baso # 0.0 10 Normal 0.0-0.2 Complete Blood Count 11/10/2020 [facility] Sample Washer: Dr Sharif Perez [place], [place] [id number] [phone] WBC 7.0 x10*3/UL 4.1 - 10.9 RBC 3.38 x10*6/UL Low 4.20 - 6.30 Hemoglobin 11.3 g/dL Low 12.0 - 18.0 Hematocrit 32.1 % Low 37.0 - 51.0 MCV 94.9 fL 80.0 - 97.0 MCH 33.3 pg High 26.0 - 32.0 MCHC 35.1 g/dL 31.0 - 38.0 RDW 13.6 % 11.6 - 13.7 PLT 419 x10*3/UL 140 - 440 MPV 7.4 FL Low 7.8 - 11.0 Lymph % 15.2 % 10.0 - 58.5 Mid % 4.3 % 1.7 - 9.3 Neut % 80.5 % 37.0 - 92.0 Lymph # 1.0 x10*3/UL 0.6 - 4.1 Mid # 0.4 x10*3/UL 0.1 - 0.6 Neut # 5.6 x10*3/UL 2.0 - 7.8 Basic Metabolic Panel 11/10/2020 [facility] Sample Washer: Dr Sharif Perez [place], [place] [id number] [phone] Glucose 117 mg/dL High 74 - 99 5 BUN 17 mg/dL 7 - 18 Creatinine 0.9 mg/dL 0.6 - 1.3 Sodium 135 mEq/L Low 136 - 145 6 Potassium 4.5 mEq/L 3.5 - 5.1 Chloride 100 mEq/L 98 - 107 Carbon Dioxide 27 mEq/L 21 - 32 Calcium 9.0 mg/dL 8.5 - 10.1 GFR 60 mL/min Low >60 GFR >= 60 mL/min >60 7 1 100-125 mg/dL PRE-DIABET ES/FASTING >126 mg/dL DIABETES/FASTING 2 CHRONIC KIDNEY DISEASE STAGI NG PER NKF STAGE I & II GFR >= 60 NORMAL TO MILDLY DECREASED STAGE III GFR 30-59 MODERATELY DECREASED STAGE IV GFR 15-29 SEVERELY DECREASED STAGE V GFR <15 VERY LITTLE GFR LEFT ESRD GFR <15 ON BRAKE OPERATOR SHEET METAL 3 Units are mL/min/1.73 m2 Chronic Kidney Disease Staging per NKF: Stage I & II GFR >=60 Normal to Mildly Decreased Stage III GFR 30-59 Moderately Decreased Stage IV GFR 15-29 Severely Decreased Stage V GFR <15 Very Little GFR Left ESRD GFR <15 on BRAKE OPERATOR SHEET METAL 4 THERAPUTIC HUMAN INR VALUES INDICATIONS NORMAL RANGES PROPHYLAXIS/TREATMENT OF: VENOUS THROMBOSIS 2.0-3.0 PULMONARY EMBOLISM 2.0-3.0 PREVENTION OF SYSTEMIC EMBOLISM FROM: TISSUE HEART VALVES 2.0-3.0 ACUTE MYOCARDIAL INFARCTION 2.0-3.0 VALVULAR HEART DISEASE 2.0-3.0 ATRIAL FIBRILLATION 2.0-3.0 MECHANICAL VALVES(HIGH RISK) 2.5-3.5 RECURRENT MYOCARDIAL INFARCTION 2.5-3.5 5 100-125 mg/dL PRE-DIABET ES/FASTING >126 mg/dL DIABETES/FASTING 6 NOTE: RESULT VERIFIED. 7 CHRONIC KIDNEY DISEASE STAGI NG PER NKF STAGE I & II GFR >= 60 NORMAL TO MILDLY DECREASED STAGE III GFR 30-59 MODERATELY DECREASED STAGE IV GFR 15-29 SEVERELY DECREASED STAGE V GFR <15 VERY LITTLE GFR LEFT ESRD GFR <15 ON BRAKE OPERATOR SHEET METAL Procedures Date Code Description Status 03/12/2019 [id number] Bone Mineral Density Test Comple earl 08/29/2017 [id number] Diabetic Foot Exam Completed 06/30/2017 [id number] Diabetic Foot Exam Completed 04/27/2017 [id number] Diabetic Retinal Eye Exam Comple [facility] 03/08/2017 [id number] Bone Mineral Density Test Comple [facility] 03/07/2015 [id number] Bone Mineral Density Test Comple [facility] 08/01/2012 [id number] Mammogram Completed 06/26/2010 [id number] Colonoscopy Completed 04/04/2009 [id number] Bone Mineral Density Test Comple [facility] 03/13/2007 [id number] Mammogram Completed 03/01/2007 [id number] Bone Mineral Density Test Comple [facility] 07/08/2006 [id number] Colonoscopy Completed 07/15/2004 [id number] Bone Mineral Density Test Comple [facility] Medical Devices Description No Information Available Encounters Type Date Location Provider Dx Diagnosis Office Visit 12/09/2020 10:45a [facility] 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 G25.0 Essential tremor F32.89 Other specified depressive e pisodes M15.9 Polyosteoarthritis, unspecif ied R29.6 Repeated falls E03.9 Hypothyroidism, unspecified I10 Essential (primary) hyperten dianelys K21.9 Gastro-esophageal reflux dis ease without esophagitis J34.89 Other specified disorders of nose and nasal sinuses Office Visit 07/21/2020 1:30p [facility] G25.0 Essential tremor R29.6 Repeated falls H91.93 Unspecified hearing loss, bi lateral G31.84 Mild cognitive impairment, s o stated M19.90 Unspecified osteoarthritis, unspecified site E03.9 Hypothyroidism, unspecified K21.9 Gastro-esophageal reflux dis ease without esophagitis I10 Essential (primary) hyperten dianelys Z23 Encounter for immunization Office Visit 06/30/2020 10:45a [facility] G25.0 Essential tremor G31.84 Mild cognitive impairment, s o stated E03.9 Hypothyroidism, unspecified K21.9 Gastro-esophageal reflux dis ease without esophagitis I10 Essential (primary) hyperten dianelys M85.80 Oth disrd of bone density an d structure, unspecified site M15.9 Polyosteoarthritis, unspecif ied F32.89 Other specified depressive e pisodes Office Visit 06/27/2020 1:00p [facility] PBishnu West JR, [place] G31.84 Mild cognitive impairment, s o stated Assessments Date Code Description Provider 12/09/2020 R04.0 Epistaxis Yakelin garcia M.D. 12/09/2020 Z86.16 Personal history of Covid-19 Ronak Vieyra M.D. 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 12/09/2020 F32.89 Other specified depressive episo bro Yakelin Vieyra M.D. 12/09/2020 R53.83 Other fatigue Yakelin garcia M.D. 12/09/2020 M19.90 Unspecified osteoarthritis, unsp ecified site Yakelin Vieyra M.D. 12/09/2020 E03.9 Hypothyroidism, klaudiaified Katya Vieyra M.D. 12/09/2020 I10 Essential (primary) hypertension Yakelin Vieyra M.D. 12/09/2020 D64.9 Anemia, unspecified Yakelin aggarwal M.D. 11/20/2020 E03.9 Hypothyroidism, unspecified Katya Vieyra M.D. 11/20/2020 I10 Essential (primary) hypertension Yakelin Vieyra M.D. 11/20/2020 K21.9 Gastro-esophageal reflux disease without esophagitis Yakelin Vieyra M.D. 11/19/2020 R04.0 Epistaxis Yakelin garcia M.D. 11/19/2020 U07.1 Covid-19 Yakelin garcia M.D. 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 11/19/2020 F32.89 Other specified depressive episo bro Yakelin Vieyra M.D. 11/19/2020 M15.9 Polyosteoarthritis, unspecified Yakelin Vieyra M.D. 11/19/2020 E03.9 Hypothyroidism, unspecified Katya Vieyra M.D. 11/19/2020 D64.9 Anemia, unspecified Yakelin aggarwal M.D. 11/19/2020 K21.9 Gastro-esophageal reflux disease without esophagitis Yakelin Vieyra M.D. 11/19/2020 G31.84 Mild cognitive impairment, so st ated Yakelin Vieyra M.D. 11/10/2020 I10 Essential (primary) hypertension Yakelin Vieyra M.D. 11/10/2020 U07.1 Covid-19 Yakelin garcia M.D. 11/10/2020 F32.89 Other specified depressive episo bro Yakelin Vieyra M.D. 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 11/10/2020 M15.9 Polyosteoarthritis, unspecified Yakelin Vieyra M.D. 11/10/2020 R04.0 Epistaxis Yakelin garcia M.D. 11/10/2020 E03.9 Hypothyroidism, unspecified Katya Vieyra M.D. 11/10/2020 K21.9 Gastro-esophageal reflux disease without esophagitis Yakelin Vieyra M.D. 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 09/23/2020 E03.9 Hypothyroidism, unspecified Katya Vieyra M.D. 09/23/2020 K21.9 Gastro-esophageal reflux disease without esophagitis Yakelin Vieyra M.D. 09/23/2020 G31.84 Mild cognitive impairment, so st atekasey Vieyra M.D. 09/08/2020 G25.0 Essential tremor Yakelin Juan RamonMaxx quintero M.D. 09/08/2020 F32.89 Other specified depressive episo bro Yakelin Vieyra M.D. 09/08/2020 M15.9 Polyosteoarthritis, unspecified Yakelin Vieyra M.D. 09/08/2020 R29.6 Repeated falls Yakelin garcia M.D. 09/08/2020 E03.9 Hypothyroidism, unspecified Katya Vieyra M.D. 09/08/2020 I10 Essential (primary) hypertension Yakelin Vieyra M.D. 09/08/2020 K21.9 Gastro-esophageal reflux disease without esophagitis Yakelin Vieyra M.D. 09/08/2020 J34.89 Other specified disorders of nos e and nasal sinuses Yakelin Vieyra M.D. 07/21/2020 G25.0 Essential tremor Yakelin Juan RamonMaxx quintero M.D. 07/21/2020 R29.6 Repeated falls Yakelin garcia M.D. 07/21/2020 H91.93 Unspecified hearing loss, bilate ral Yakelin Vieyra M.D. 07/21/2020 G31.84 Mild cognitive impairment, so st atekasey Vieyra M.D. 07/21/2020 M19.90 Unspecified osteoarthritis, unsp ecified site Yakelin Vieyra M.D. 07/21/2020 E03.9 Hypothyroidism, unspecified Katya Vieyra M.D. 07/21/2020 K21.9 Gastro-esophageal reflux disease without esophagitis Yakelin Vieyra M.D. 07/21/2020 I10 Essential (primary) hypertension Yakelin Vieyra M.D. 07/21/2020 Z23 Encounter for immunization Yakelin Vieyra M.D. 06/30/2020 G25.0 Essential tremor Yakelin quintero M.D. 06/30/2020 G31.84 Mild cognitive impairment, so st ated Yakelin Vieyra M.D. 06/30/2020 E03.9 Hypothyroidism, unspecified Katya Vieyra M.D. 06/30/2020 K21.9 Gastro-esophageal reflux disease without esophagitis Yakelin Vieyra M.D. 06/30/2020 I10 Essential (primary) hypertension Yakelin Vieyra M.D. 06/30/2020 M85.80 Other specified diso rders of bone density and structure, unspecified site Yakelin Vieyra M.D. 06/30/2020 M15.9 Polyosteoarthritis, unspecified Yakelin Vieyra M.D. 06/30/2020 F32.89 Other specified depressive episo bro Yakelin Vieyra M.D. 06/27/2020 G31.84 Mild cognitive impairment, so st ated Kirt West JR PA Plan of Treatment Future Appointment(s):* 04/20/2021 11:00 am - Yakelin Vieyra M.D. at [facility] * 04/20/2021 10:40 am - Nurse #2 at [facility] * 01/22/2021 1:15 pm - Yakelin Vieyra M.D. at [facility] 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 Cognitive impairment. Stable. We'll see if we can improve with less Gabapentin.11. GERD. Continue the Pantoprazole.12. Health maintenance. She's had COVID-19, but will eventually need the COVID vaccine. Functional Status Description No Information Available Mental Status Description No Information Available Referrals Refer to Reason for Referral Status Appt Date Jeff Dudley MD CONSULT FOR NASAL LESION Patient Notified 11/11 [facility] [address] [facility] [address] [place] [address] [phone] [facility] CONSULT FOR LT SHOULDER PAIN Sen t [address] [place] [address] [phone]
--- OUTSIDE RECORDS SUMMARY | 2020-12-25 21:25 | CCD | Continuity of Care Document ---
Author Author Hayde DUDLEY MD Organization Unknown Address [address] [place] [address] [address] [place] [address] Phone [phone] Care Team Providers Care [employer] T[employer] Name Role Phone Yakelin Thapa M.D. AUTM [phone] Sharif Perez MD @ [facility] Int AUTM [phone] AUTM Unavailable Problems Active Problems Provider Date Gastroenteritis Ian Michel MD Onset: 05/23/2013 Heartburn Ian Michel MD Onset: 05/23/2013 Globus Sensation Ian Michel MD Onset: 05/23/2013 Chronic laryngitis Ian Michel MD Onset: 05/23/2013 Inflammatory disease of mucous membrane Juan Ramon Tate Onset: 05/23/2013 Impacted cerumen Camacho Goodwin MD Onset: 05/23/2013 Cough Camacho Goodwin MD Onset: 05/23/2013 Gastroesophageal reflux disease Camacho Goodwin MD Onset: 05/23/2013 Diarrhea Ian Michel MD Onset: 05/23/2013 History Personal Digestive System Diseases Other Ian haddad MD Onset: 05/23/2013 Congenital anomaly of intestinal tract Ian Michel MD O nset: 05/23/2013 Screening for malignant neoplasm of colon Ian Michel MD Onset: 05/23/2013 Difficulty speaking Ian Michel MD Onset: 05/23/2013 Diaphragmatic hernia Ian Michel MD Onset: 05/23/2013 Obstructive sleep apnea syndrome Raul Tierney D.O. Onset: 10/27/2016 Periodic limb movement disorder Raul Tierney D.O. Onset: 0 08/03/2017 Malaise and fatigue Raul Tierney D.O. Onset: 01/25/2018 Social History Type Date Description Comments Sex Unknown ETOH Use Drinks Alcoholic Beverages Occas ionally Tobacco Use Start: Unknown End: Unknown Patient is a former smoker quit 80's hx: 1ppd x 28y. Smoking Status Reviewed: 09/11/20 Patient is a former smoker q uit 80's hx: 1ppd x 28y. Allergies, Adverse Reactions, Alerts Active Allergies Reaction Severity Comments Date Adhesives 02/14/2012 Medications Active Medications SIG Qnty Indications Ordering Provide r Date Saline Mist Girard 0.65% Solution 2 sprays to each nostril 4 times daily as needed 135ml Tyrell Macias MD 11/11/2020 Mupirocin 2% Ointment apply to nose as directed twice a day 22gm Tyrell Macias MD 02/22/20 18 Ditropan XL 5mg Tablets ER 24HR 1 by mouth every day Unknown Restasis 0.05% Emulsion 1 gt both eyes bid Unknown Preservision Areds 2 Areds 2 Capsu les 1 po qd Unknown Centrum Silver Tablets 1 po qd Unknown Super B Complex Maxi Tablets 1 po qd Unknown Vitamin D3 2000Unit Chewtabs 1 po qd Unknown Cymbalta 60mg Caps DR Part 1 po qd Unknown Calcium Citrate + D3 [id number] Tablets 2 po bid Unknown CPAP 6cm marras Unknown Aspirin 325mg Tablets 1 by mouth every day Unknown Pantoprazole Sodium 40mg Tablets D R 1 by mouth every day Unknown L-Lysine 1000mg Tablets 1 by mouth four times a day as needed Unknown Folic Acid 400mcg Tablets 1 by mouth every day Unknown Zovirax 5% Cream apply to affected area as needed Unknown Gabapentin 300mg Capsules 2 by mouth twice a day 60caps Unknown Levothyroxine Sodium 50mcg Tablets 1 by mouth every day Yakelin Thapa M.D. Lisinopril 40mg Tablets 1 po every day Yakelin Thapa M.D. Simvastatin 20mg Tablets 1 po every night Yakelin Thapa M.D. Immunizations CPT Code Status Date Vaccine Lot # 37942 Given 08/05/2010 Influenza Virus Split 3 Yrs And Above For Intramuscular Use [id number] Given 07/21/2010 Pneumococcal PPSV23 [id number] Refused 09/04/2015 Influenza Vaccine 3 Years Of Age Or Older (Flulaval) Vital Signs Date Vital Result Comment 11/20/2020 9:25am Height 63 inches 5'3" Weight 163.00 lb BMI (Body Mass Index) 28.9 kg/m2 Maceo Body Weight 115 lb Weight 73.937 kg BSA (Body Surface Area) 1.77 m2 11/10/2020 1:36pm Height 63 inches 5'3" Weight 163.00 lb BMI (Body Mass Index) 28.9 kg/m2 Maceo Body Weight 115 lb Weight 73.937 kg BSA (Body Surface Area) 1.77 m2 Results Description No Information Available Procedures Description No Information Available Medical Devices Description No Information Available Encounters Type Date Location Provider Dx Diagnosis Office Visit 11/10/2020 1:45p [facility] Tyrell calhoun MD R04.0 Epistaxis Office Visit 09/11/2020 9:30a [facility] Pulmonary/Thoracic ALEXANDER Christian G47.33 Obstructive sleep apnea (adult) (pediatr ic) Assessments Date Code Description Provider 11/10/2020 R04.0 Epistaxis Tyrell Macias MD 09/11/2020 G47.33 Obstructive sleep apnea (adult) (pediatric) ALEXANDER Christian Plan of Treatment Future Appointment(s):* 12/05/2020 9:50 am - Jeff Dudley MD at [facility] * 09/21/2021 10:00 am - ALEXANDER Christian at [facility] Pulmonary/Thoracic Functional Status Description No Information Available Mental Status Description No Information Available Referrals Refer to Reason for Referral Status Appt Date Tyrell Macias M.D. RECHECK LESION REF J PHILLIP INS MEDICARE Created 11/11/2020 [facility] [address] [address] [phone]
--- OUTSIDE RECORDS SUMMARY | 2020-12-25 21:25 | CCD | Continuity of Care Document ---
Author Author Hayde Vieyra M.D. Organization Unknown Address [address] [facility] [address] [place] [address] Phone [phone] Care Team Providers Care Forging Die Sinker Name Role Phone Abdirizak Martin MD AUTM [phone] Raul Tierney DO AUTM [phone] Anne Jalloh OD AUTM Unavailable Ian Mora MD AUTM [phone] Yakelin Vieyra MD AUTM [phone] Chinmay Nieto DPM AUTM [phone] [facility] AUTM [phone] Margie Cohen, Maximilian AUTM [phone] [facility]Assist Sara AUTM [phone] Problems Active Problems Provider Date Benign essential [...] SIG Qnty Indications Ordering Provide r Date Aspirin [address] take one tablet by mouth daily Yakelin Vieyra M.D. 11/03/20 20 Vitamin D [...] Powder 3.4 gms qd 35 0gm Yakelin Vieyra M.D. 06/19/2019 Biotene Dry Mouth Liquid 1 spray qid prn dry mouth 1BJANESSA Gonzalez 12/18/2018 Refresh Tears 0.5% Solution 1 drops into both eyes 3 times a day (dry eyes) 30units NEVAEH LeblancP 12/18/2018 Losartan Potassium 50mg Tablets 1 by mouth every day 30tabs Yakelin Vieyra M.D. 12/06/19 19 Milk Of Magnesia 400mg/5ML Suspens ion 30mls by mouth daily /prn/ constipation 1Bottle Yakelin Vieyra M.D. 10/24/2018 Levothyroxine Sodium 125mcg Tablet s 1/2 tab by mouth every day 15tabs Yakelin Vieyra M.D. 1 12/19/2017 Nystatin 733909Vohg/GM Powder apply to affected area(s) under breast and in groin two times a day as needed 60gm Yakelin Vieyra M.D. 07/25/2018 Loratadine 10mg Tablets 1 by mouth every day 30tabs Yakelin Vieyra M.D. 07/05/20 18 Gabapentin 400mg Capsules take one capsule by mouth twice a day and 2 at bedtime 120caps Yakelin koo M.D. 06/22/2018 Oxybutynin Chloride ER 5mg Tablets ER 24HR 1 by mouth every day 30tabs Juan Ramon Willingham 06/22/2018 Pantoprazole Sodium 20mg Tablets D R 1 by mouth daily 30tabs Yakelin Vieyra M.D. 06/22/20 18 Spacer For Mdi use as directed 1units Julien Leblanc LOCAL ANNOUNCER 11/30/2017 Ventolin HFA 108(90Base) mcg/Act A erosol 2 puffs four times a day as needed 8gm Yakelin quintero M.D. 11/21/2017 Centrum Silver Tablets 1 by mouth everyday 30tabs Yakelin Vieyra M.D. 09/12/20 17 Fluticasone Propionate 50mcg/Act Suspension 2 sprays each nostril daily 16gm Yakelin martinez M.D. 08/17/2017 Tylenol Extra Strength 500mg Table ts 1 PO Q12H/prn M25.5 60tabs Yakelin Vieyra M.D. 08/03/20 17 Preparation H 0.25-14-74.9% Ointme nt qid prn for hemorrhoids-may keep at bedside & self apply 57gm Ruchi Jeronimo,JANESSA 07/07/2017 Tums 500mg Chewtabs ch ew 1 tab bid 180unneeraj Vieyra M.D. 06/15/2017 Simethicone 80mg Chewtabs one tab 4 times daily after meals and at bedtime as needed burping 120units Yakelin Vieyra M.D. 05/17/2017 Colace 100mg Capsules 1 by mouth twice a day as needed for constipation 60caps Phyl Conn, Earlene 03/15/2017 Meclizine HCL 25mg Tablets take one tablet by mouth every 6 hours as needed dizziness 30tadavid Vieyra M.D. 02/22/2017 Tussin DM 100-10mg/5ML Liquid give 10cc by mouth as needed every 4 hours for cough 118ml Yakelin Vieyra M.D. 01/28/2017 Lumbar Support Cushion [facility] prn Yakelin Vieyra M.D. 12/01/2015 Aspercreme W/Lidocaine 4% Cream apply a thin layer to affected area every 6 hours prn pain 1units Ruchi Jeronimo FNP 11/27/2015 Restasis 0.05% Emulsion 1 drop both eyes twice a day further refills must come from eye 120unneeraj Vieyra M.D. 09/08/2015 Roller Walker W/ [facility] Yakelin Vieyra M.D. 08/26/2015 Saline Nasal [place] 0.65% Solution 2 sprays each nostril q 6hrs prn dry nose 1unRuchi Johns FNP 08/26/2015 Ibuprofen 200mg Tablets 1 tab every 6 hours as needed 120tadavid Vieyra M.D. 08/26/20 15 Duloxetine HCL 60mg Caps [address] Bessie take 1 capsule daily po with 30mg tab 30caps Yakelin Vieyra M.D. 01/22/2014 Preservision Areds Tablets 2 tabs by mouth twice a day 120tadavid Vieyra M.D. 2012 Simvastatin 20mg Tablets take one tablet by mouth qd 30tabs Yakelin Vieyra M.D. 05/06/20 11 Mupirocin 2% Ointment as directed nasal prn [...] every day 30tabs Yakelin Vieyra M.D. 09/24/20 20 - 11/19/2020 Medications Administered in Office Medication SIG Qnty Indications Ordering Provider Date Administration Of Flu Vaccine Inj anna Vieyra M.D. 07/21/20 20 Administration Of Flu Vaccine Inj ection Rashel Conn [facility] 08/31/2017 Administration Of Flu Vaccine Inj anna Vieyra M.D. 09/21/20 10 Administration Of Flu Vaccine Inj Ruchi [employer] 08/20/2008 Administration Of Flu Vaccine Inj Ruchi [employer]SP[employer] ASSEMBLER 08/31/2007 Administration Of Flu Vaccine Inj anna Vieyra M.D. 08/31/20 04 Administration Of Flu Vaccine Inj anna Vieyra M.D. 09/26/20 03 Immunizations CPT Code Status Date Vaccine Reaction Lot # 90012 Given 07/21/2020 Influenza Vaccin e Quadrivalent Preser/Antibiotic Free Im Use [id number] U-Flu Given 09/02/2018 Influenza,Unspecified 80842 Given 08/31/2017 Influenza Vaccin e Quadrivalent Preser/Antibiotic Free Im Use [id number] 17918 Given 12/06/2016 Adacel- Tetanus Diphtheria Pertussis (Age64 & Under) [id number] Given 08/25/2015 PPD 10-15 omm negative C [id number] 32054 Given 01/23/2015 Prevnar 13 [id number] 98125 Given 09/21/2010 Influenza Virus Vaccine 48375 Given 12/16/2008 Pneumovax 23 75249 Given 08/20/2008 Influenza Virus Vaccine 44135 Given 08/31/2007 Influenza Virus Vaccine 11984 Given 08/31/2004 Influenza Virus Vaccine 22360 Given 09/26/2003 Influenza Virus Vaccine 93579 Given 09/04/2002 Influenza Virus Vaccine 07816 Given 08/09/2001 Influenza Virus Vaccine Vital Signs Date Vital Result Comment 11/19/2020 9:58am BP Systolic 142 mmHg RT Arm BP Diastolic 80 mmHg RT Arm Heart Rate 104 /min Height 62.75 inches 5'2.75" Weight 165.12 lb BMI (Body Mass Index) 29.5 kg/m2 11/10/2020 9:56am BP Systolic 122 mmHg RT Arm BP Diastolic 74 mmHg RT Arm Heart Rate 96 /min Height 62.75 inches 5'2.75" Weight 163.00 lb verbal BMI (Body Mass Index) 29.1 kg/m2 Results Test Acquired Date Facility Test Result H/L Range Note CBC With Differential 11/12/[address] [id number] [phone] White Blood Count 6.3 10 Normal 4.0-10.0 [...] 36.0-66.0 Lymph % 32.3 % Normal 24.0-44.0 [place] % 11.9 % High 0.0-5.0 Eos % 5.7 % High 0.0-3.0 Baso % 0.8 % Normal 0.0-1.0 Immature Granulocyte % 0.3 % Normal 0-3.0 Nucleated Red Blood Cell % 0.0 % Normal 0-0 Neutrophils # 3.1 10 Normal 1.5-8.5 Lymph # 2.0 10 Normal 1.5-5.0 [place] # 0.8 10 Normal 0.0-0.8 Eos # 0.4 10 Normal 0.0-0.5 Baso # 0.1 10 Normal 0.0-0.2 Basic Metabolic Profile 11/12/[address] [address] [phone] Glucose, Fasting 123 mg/dL High 70-100 Blood Urea Nitrogen 15 mg/dL Normal 7-18 Creatinine For GFR 0.88 mg/dL Normal 0.55-1.30 Glomerular Filtration Rate > 60.0 Normal >32 1 Sodium Level 137 mEq/L Normal 136-145 Potassium Serum 3.8 mEq/L Normal 3.5-5.1 Chloride Level 103 mEq/L Normal 98-107 Carbon Dioxide Level 29 mEq/L Normal 21-32 Anion Gap 5 mEq/L Low 8-16 Calcium Level 9.2 mg/dL Normal 8.8-10.2 Type & Screen -Incl Blood Type,Rick,AB SC 11/12/[address] [address] [phone] Blood Type O POSITIVE Normal AB Screen (Indirect [place])Vis NEGATIVE Normal Prothrombin Time/Inr 11/12/2020 [facility] enter [address] [place] [address] [phone] Prothrombin Time 13.9 seconds Normal 12.5-14.3 Inr 1.05 Normal 2 Laboratory test finding 11/12/[address] [address] [phone] Partial Thromboplastin Time 34.8 seconds Normal 24 .2-38.5 CBC With Differential 11/12/[address] [address] [phone] White Blood Count 6.5 10 Normal 4.0-10.0 [...] 36.0-66.0 Lymph % 21.0 % Low 24.0-44.0 [place] % 10.0 % High 0.0-5.0 Eos % 5.2 % High 0.0-3.0 Baso % 0.5 % Normal 0.0-1.0 Immature Granulocyte % 0.3 % Normal 0-3.0 Nucleated Red Blood Cell % 0.0 % Normal 0-0 Neutrophils # 4.1 10 Normal 1.5-8.5 Lymph # 1.4 10 Low 1.5-5.0 [place] # 0.7 10 Normal 0.0-0.8 Eos # 0.3 10 Normal 0.0-0.5 Baso # 0.0 10 Normal 0.0-0.2 Complete Blood Count 11/10/2020 [facility] Fleet Dispatch Manager: Dr Sharif Perez [place], [place] [id number] [phone] WBC 7.0 x10*3/UL 4.1 - 10.9 RBC [...] 2.0 - 7.8 Basic Metabolic Panel 11/10/2020 [facility] Fleet Dispatch Manager: [place] [address] [phone] Glucose 117 mg/dL High 74 - 99 3 BUN 17 mg/dL 7 - 18 Creatinine 0.9 mg/dL 0.6 - 1.3 Sodium 135 mEq/L Low 136 - 145 4 Potassium 4.5 mEq/L 3.5 - 5.1 Chloride 100 mEq/L 98 - 107 Carbon Dioxide 27 mEq/L 21 - 32 Calcium 9.0 mg/dL 8.5 - 10.1 GFR 60 mL/min Low >60 GFR >= 60 mL/min >60 5 PT & Aptt 05/21/2020 [facility] nter [address] [place] [address] [phone] Prothrombin Time 13.8 seconds Normal 11.8-14.0 Inr 1.09 Normal 6 Partial Thromboplastin Time 34.3 seconds Normal 25.0-38.4 Cardiac Marker Panel 05/21/2020 [facility] enter [address] [place] [address] [phone] CPK Creatine Phosphokinase 89 U/L Normal 26-19 2 CK-MB Value Mass 2.5 NG/ML Normal <3.6 MB/CK Relative Index 2.81 Normal < Or =4 7 Troponin I < 0.02 NG/ML Normal < 0.10 8 Basic Metabolic Profile 05/21/2020 [facility] [address] [place] [address] [phone] Glucose, Fasting 87 mg/dL Normal 70-100 Blood Urea Nitrogen 17 mg/dL Normal 7-18 Creatinine For GFR 0.96 mg/dL Normal 0.55-1.30 Glomerular Filtration Rate 59.4 Normal >32 9 Sodium Level 140 mEq/L Normal 136-145 Potassium Serum 4.1 mEq/L Normal 3.5-5.1 Chloride Level 106 mEq/L Normal 98-107 Carbon Dioxide Level 29 mEq/L Normal 21-32 Anion Gap 5 mEq/L Low 8-16 Calcium Level 9.0 mg/dL Normal 8.8-10.2 Laboratory test finding 05/21/[address] [address] [phone] Magnesium Level 2.3 mg/dL Normal 1.8-2.4 CBC With Differential 05/21/[address] [address] [phone] White Blood Count 5.9 10 Normal 4.0-10.0 Red Blood Count 3.70 10 Low 4.00-5.40 Hemoglobin 12.3 g/dL Normal 12.0-15.5 Hematocrit 36.8 % Normal 36.0-47.0 Mean Corpuscular Volume 99.5 fl High 80.0-96.0 Mean Corpuscular Hemoglobin 33.2 pg High 27.0-33.0 Mean Corpuscular HGB Conc 33.4 g/dL Normal 32.0-36.5 Red Cell Distribution Width 13.1 % Normal 11.5-14.5 Platelet Count, Automated 295 10 Normal 150-450 Neutrophils % 45.7 % Normal 36.0-66.0 Lymph % 36.0 % Normal 24.0-44.0 [place] % 10.4 % High 0.0-5.0 Eos % 6.9 % High 0.0-3.0 Baso % 0.8 % Normal 0.0-1.0 Immature Granulocyte % 0.2 % Normal 0-3.0 Nucleated Red Blood Cell % 0.0 % Normal 0-0 Neutrophils # 2.7 10 Normal 1.5-8.5 Lymph # 2.1 10 Normal 1.5-5.0 [place] # 0.6 10 Normal 0.0-0.8 Eos # 0.4 10 Normal 0.0-0.5 Baso # 0.1 10 Normal 0.0-0.2 Type & Screen -Incl Blood Type,Rick,AB SC 05/21/[address] [address] [phone] Blood Type O POSITIVE Normal AB Screen (Indirect [place])Vis NEGATIVE Normal 1 Units are mL/min/1.73 m2 Chronic Kidney Disease Staging per NKF: Stage I & II GFR >=60 Normal to Mildly Decreased Stage III GFR 30-59 Moderately Decreased Stage IV GFR 15-29 Severely Decreased Stage V GFR <15 Very Little GFR Left ESRD GFR <15 on INTEGRATION TECHNICIAN 2 THERAPUTIC HUMAN INR VALUES INDICATIONS NORMAL RANGES PROPHYLAXIS/TREATMENT OF: VENOUS THROMBOSIS 2.0-3.0 PULMONARY EMBOLISM 2.0-3.0 PREVENTION OF SYSTEMIC EMBOLISM FROM: TISSUE HEART VALVES 2.0-3.0 ACUTE MYOCARDIAL INFARCTION 2.0-3.0 VALVULAR HEART DISEASE 2.0-3.0 ATRIAL FIBRILLATION 2.0-3.0 MECHANICAL VALVES(HIGH RISK) 2.5-3.5 RECURRENT MYOCARDIAL INFARCTION 2.5-3.5 3 100-125 mg/dL PRE-DIABET ES/FASTING >126 mg/dL DIABETES/FASTING 4 NOTE: RESULT VERIFIED. 5 CHRONIC KIDNEY DISEASE STAGI NG PER NKF STAGE I & II GFR >= 60 NORMAL TO MILDLY DECREASED STAGE III GFR 30-59 MODERATELY DECREASED STAGE IV GFR 15-29 SEVERELY DECREASED STAGE V GFR <15 VERY LITTLE GFR LEFT ESRD GFR <15 ON INTEGRATION TECHNICIAN 6 THERAPUTIC HUMAN INR VALUES INDICATIONS NORMAL RANGES PROPHYLAXIS/TREATMENT OF: VENOUS THROMBOSIS 2.0-3.0 PULMONARY EMBOLISM 2.0-3.0 PREVENTION OF SYSTEMIC EMBOLISM FROM: TISSUE HEART VALVES 2.0-3.0 ACUTE MYOCARDIAL INFARCTION 2.0-3.0 VALVULAR HEART DISEASE 2.0-3.0 ATRIAL FIBRILLATION 2.0-3.0 MECHANICAL VALVES(HIGH RISK) 2.5-3.5 RECURRENT MYOCARDIAL INFARCTION 2.5-3.5 7 DIAGNOSIS CRITERIA MMB ng/ml Relative Index (RI) NON-AMI < or = 5 N/A [place] > 5 < or = 4 AMI > 5 > 4 8 Troponin I Reference Interva l for 1,2,3 Listo LOCI: 99th Percentile= 0.00-0.045 ng/ml Risk Stratification: <= 0.10 ng/ml Decreased Risk for Adverse Clinical Events. 0.10-1.50 ng/ml Increased Risk for Adv erse Clinical Events. Evaluation of additional criterion and/or repeat testing in 2-6 hours is suggested to rule out myocardial damage. >= 1.50 ng/ml Indicative of Myocardial Injury. 9 Units are mL/min/1.73 m2 Chronic Kidney Disease Staging per NKF: Stage I & II GFR >=60 Normal to Mildly Decreased Stage III GFR 30-59 Moderately Decreased Stage IV GFR 15-29 Severely Decreased Stage V GFR <15 Very Little GFR Left ESRD GFR <15 on INTEGRATION TECHNICIAN Procedures Date Code Description Status 05/26/2020 43700 EKG/Interpretation & Report Comp leted 03/12/2019 [id number] Bone Mineral Density Test Comple earl 08/29/2017 [id number] Diabetic Foot Exam Completed 06/30/2017 [id number] Diabetic Foot Exam Completed 04/27/2017 [id number] Diabetic Retinal Eye Exam Comple earl 03/08/2017 [id number] Bone Mineral Density Test Comple earl 03/07/2015 [id number] Bone Mineral Density Test Comple earl 08/01/2012 [id number] Mammogram Completed 06/26/2010 [id number] Colonoscopy Completed 04/04/2009 [id number] Bone Mineral Density Test Comple earl 03/13/2007 [id number] Mammogram Completed 03/01/2007 [id number] Bone Mineral Density Test Comple earl 07/08/2006 [id number] Colonoscopy Completed 07/15/2004 [id number] Bone Mineral Density Test Comple earl Medical Devices Description No Information Available Encounters Type Date Location Provider Dx Diagnosis Office Visit 11/10/2020 10:00a [facility]ra M.[facility]. 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 G25.0 Essential tremor F32.89 Other specified depressive e pisodes M15.9 Polyosteoarthritis, unspecif ied R29.6 Repeated falls E03.9 Hypothyroidism, unspecified I10 Essential (primary) hyperten dianelys K21.9 Gastro-esophageal reflux dis ease without esophagitis J34.89 Other specified disorders of nose and nasal sinuses Office Visit 07/21/2020 1:30p [facility] Vieyra M.D. G25.0 Essential tremor R29.6 Repeated falls H91.93 Unspecified hearing loss, bi lateral G31.84 Mild cognitive impairment, s o stated M19.90 Unspecified osteoarthritis, unspecified site E03.9 Hypothyroidism, unspecified K21.9 Gastro-esophageal reflux dis ease without esophagitis I10 Essential (primary) hyperten dianelys Z23 Encounter for immunization Office Visit 06/30/2020 10:45a [facility] V[facility]ra M.D. G25.0 Essential tremor G31.84 Mild cognitive impairment, s o stated E03.9 Hypothyroidism, unspecified K21.9 Gastro-esophageal reflux dis ease without esophagitis I10 Essential (primary) hyperten dianeyls M85.80 Oth disrd of bone density an d structure, unspecified site M15.9 Polyosteoarthritis, unspecif ied F32.89 Other specified depressive e pisodes Office Visit 06/27/2020 1:00p [facility] [place] [facility], [place] G31.84 Mild cognitive impairment, s o stated Office Visit 05/26/2020 10:00a [facility] Vieyra M.D. G25.0 Essential tremor G31.84 Mild cognitive impairment, s o stated M19.90 Unspecified osteoarthritis, unspecified site E03.9 Hypothyroidism, unspecified F32.89 Other specified depressive e pisodes K21.9 Gastro-esophageal reflux dis ease without esophagitis M85.80 Oth disrd of bone density an d structure, unspecified site I10 Essential (primary) hyperten dianelys Assessments Date Code Description Provider 11/10/2020 I10 Essential (primary) hypertension Yakelin Vieyra [...] M.D. 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 09/23/2020 E03.9 Hypothyroidism, unspecified Katya Vieyra M.D. 09/23/2020 K21.9 Gastro-esophageal reflux disease without esophagitis Yakelin Vieyra M.D. 09/23/2020 G31.84 Mild cognitive impairment, so st ated Yakelin Vieyra M.D. 09/08/2020 G25.0 Essential tremor Yakelin quintero M.D. 09/08/2020 F32.89 Other specified depressive [...] Vieyra M.D. 07/21/2020 G25.0 Essential tremor Yakelin quintero M.D. 07/21/2020 R29.6 Repeated falls Yakelin [...] G31.84 Mild cognitive impairment, so st ated ALEXANDER Nieves JR 05/26/2020 G25.0 Essential tremor Yakelin quintero M.D. 05/26/2020 G31.84 Mild cognitive impairment, so st ated Yakelin Vieyra M.D. 05/26/2020 M19.90 Unspecified osteoarthritis, unsp ecified site Yakelin Vieyra M.D. 05/26/2020 E03.9 Hypothyroidism, unspecified Katya iVeyra M.D. 05/26/2020 F32.89 Other specified depressive episo bro Yakelin Vieyra M.D. 05/26/2020 K21.9 Gastro-esophageal reflux disease without esophagitis Ykaelin Vieyra M.D. 05/26/2020 M85.80 Other specified diso rders of bone density and structure, unspecified site Yakelin Vieyra M.D. 05/26/2020 I10 Essential (primary) hypertension Yakelin Vieyra M.D. Plan of Treatment Future Appointment(s):* 12/09/2020 10:45 am - [facility] 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 Cognitive impairment. Lives in supportive home environment.10. Health Maintenance. Patient has had COVID. Hold off on vaccine 3 months Functional Status Description No Information Available Mental Status Description No Information Available Referrals Refer to Reason for Referral Status Appt Date Jeff Dudley MD CONSULT FOR NASAL LESION Patient Notified 11/11 [id number] [facility] [address] [place] [address] [phone] [facility] CONSULT FOR LT SHOULDER PAIN Sen t [address] [place] [address] [phone] Jacquelyn Mustafa MD CONSULT FOR ER FOLLOWUP OF T REMORS, THE ER DOCTOR SPOKE WITH DR MUSTAFA REGARDING THIS PT Sent 07/03/2020 [facility] [address] [place] [address] [phone]
--- OUTSIDE RECORDS SUMMARY | 2020-12-25 21:25 | CCD | Continuity of Care Document ---
Author Author Hayde DUDLEY MD Organization Unknown Address [address] [place] [address] [address] [place] [address] Phone [phone] Care Team Providers Care Director Of Assessing Name Role Phone Yakelin Thapa M.D. AUTM [phone] Sharif Perez MD @ [facility] Int AUTM AUTM Unavailable Problems Active Problems Provider Date [...] Onset: 0 08/03/2017 Malaise and fatigue Raul iTerney D.O. Onset: 01/25/2018 Social History Type Date [...] Indications Ordering Provide r Date Saline Mist [place] 0.65% Solution 2 sprays to each nostril [...] po qd Unknown Calcium Citrate + D3 [id number] Tablets 2 po bid Unknown CPAP 6cm [...] CPT Code Status Date Vaccine Lot # 61781 Given 08/05/2010 Influenza Virus Split 3 Yrs And Above For Intramuscular Use 65772 Given 07/21/2010 Pneumococcal PPSV23 [id number] Refused 09/04/2015 Influenza Vaccine 3 Years Of Age Or Older (Flulaval) Vital Signs Date Vital Result Comment 11/26/2020 8:06am Height 63 inches 5'3" Weight 163.00 lb BMI (Body Mass Index) 28.9 kg/m2 [place] Body Weight 115 lb Weight 73.937 kg BSA (Body Surface Area) 1.77 m2 11/20/2020 9:25am Height 63 inches 5'3" Weight 163.00 lb BMI (Body Mass Index) 28.9 kg/m2 [place] Body Weight 115 lb Weight 73.937 kg BSA (Body Surface Area) 1.77 m2 Results Description No Information Available Procedures Description No Information Available Medical Devices Description No Information Available Encounters Type Date Location Provider Dx Diagnosis Office Visit 11/20/2020 9:20a [facility] Jeff Dudley MD R04.0 Epistaxis Office Visit 11/10/2020 1:45p [facility] Tyrell calhoun MD R04.0 Epistaxis Office Visit 09/11/2020 9:30a [facility] ALEXANDER Christian G47.33 Obstructive sleep apnea (adult) (pediatr ic) Assessments Date Code Description Provider 11/20/2020 R04.0 Epistaxis Jeff Dudley MD 11/10/2020 R04.0 Epistaxis Tyrell Macias MD 09/11/2020 G47.33 Obstructive sleep apnea (adult) (pediatric) ALEXANDER Christian Plan of Treatment Future Appointment(s):* 09/21/2021 10:00 am - ALEXANDER Christian at [facility] Functional Status Description No Information Available Mental Status Description No Information Available Referrals Refer to Reason for Referral Status Appt Date Tyrell Macias M.D. RECHECK LESION REF J PHILLIP INS MEDICARE Created 11/11/2020 [facility] [address] [address] [phone]
--- OUTSIDE RECORDS SUMMARY | 2020-12-25 21:25 | CCD | Continuity of Care Document ---
Author Author Hayde Vieyra M.D. Organization Unknown Address [address] [facility] [address] [place] [address] Phone [phone] Care Team Providers Care Custom Designer Name Role Phone Abdirizak Martin MD AUTM [phone] Raul Tierney DO AUTM [phone] Anne Jalloh OD AUTM Unavailable Ian Mora MD AUTM [phone] Yakelin Vieyra MD AUTM [phone] Chinmay Nieto DPM AUTM [phone] [facility] AUTM [phone] Margie Cohen, Maximilian AUTM [phone] SSV-Assist Sara AUTM [phone] Problems Active Problems Provider Date Benign essential [...] 15tabs Yakelin Vieyra M.D. 1 12/19/2017 Nystatin 883553Pqax/GM Powder apply to affected area(s) under breast [...] Mdi use as directed 1units Julien Leblanc ROENTGENOLOGIST 11/30/2017 Ventolin HFA 108(90Base) mcg/Act A erosol [...] Yakelin Vieyra M.D. 01/28/2017 Lumbar Support Cushion [facility] [place] Yakelin Vieyra M.D. 12/01/2015 Aspercreme W/Lidocaine 4% Cream apply a thin layer to affected area every 6 hours prn pain 1units Ruchi Jeronimo FNP 11/27/2015 Restasis 0.05% Emulsion 1 drop both eyes twice a day further refills must come from eye 120unneeraj Vieyra M.D. 09/08/2015 [facility] Yakelin Vieyra M.D. 08/26/2015 Saline Nasal [place] 0.65% Solution 2 sprays each nostril q [...] Of Flu Vaccine Inj ection Rashel Conn [facility] 08/31/2017 Administration Of Flu Vaccine Inj anna Vieyra M.D. 09/21/20 10 Administration Of Flu Vaccine Inj Ruchi ArangoBLOCK ENGRAVER 08/20/2008 Administration Of Flu Vaccine Inj Ruchi ArangoBLOCK ENGRAVER 08/31/2007 Administration Of Flu Vaccine Inj anna Vieyra M.D. 08/31/20 04 Administration Of Flu Vaccine Inj anna Vieyra M.D. 09/26/20 03 Immunizations CPT Code Status Date Vaccine Reaction Lot # [id number] Given 07/21/2020 Influenza Vaccin e Quadrivalent Preser/Antibiotic Free Im Use [id number] U-Flu Given 09/02/2018 Influenza,Unspecified 76359 Given 08/31/2017 Influenza Vaccin e Quadrivalent Preser/Antibiotic Free Im Use [id number] 09781 Given 12/06/2016 Adacel- Tetanus Diphtheria Pertussis (Age64 & Under) [id number] Given 08/25/2015 PPD 08-27-15 omm negative C [id number] 92575 Given 01/23/2015 Prevnar 13 [id number] 66439 Given 09/21/2010 Influenza Virus Vaccine 04175 Given 12/16/2008 Pneumovax 23 35135 Given 08/20/2008 Influenza Virus Vaccine 93879 Given 08/31/2007 Influenza Virus Vaccine 58543 Given 08/31/2004 Influenza Virus Vaccine 74913 Given 09/26/2003 Influenza Virus Vaccine 58514 Given 09/04/2002 Influenza Virus Vaccine 33855 Given 08/09/2001 Influenza Virus Vaccine Vital Signs [...] H/L Range Note CBC With Differential 11/12/[address] [id number] [phone] White Blood Count 6.3 10 Normal 4.0-10.0 [...] 36.0-66.0 Lymph % 32.3 % Normal 24.0-44.0 [place] % 11.9 % High 0.0-5.0 Eos % 5.7 % High 0.0-3.0 Baso % 0.8 % Normal 0.0-1.0 Immature Granulocyte % 0.3 % Normal 0-3.0 Nucleated Red Blood Cell % 0.0 % Normal 0-0 Neutrophils # 3.1 10 Normal 1.5-8.5 Lymph # 2.0 10 Normal 1.5-5.0 Appling # 0.8 10 Normal 0.0-0.8 Eos # 0.4 10 Normal 0.0-0.5 Baso # 0.1 10 Normal 0.0-0.2 Basic Metabolic Profile 11/12/[address] [address] [phone] Glucose, Fasting 123 mg/dL High 70-100 Blood [...] & Screen -Incl Blood Type,Rick,AB SC 11/12/[address] [address] [phone] Blood Type O POSITIVE Normal AB Screen (Indirect Brionna)Vis NEGATIVE Normal Prothrombin Time/Inr 11/12/2020 [facility] C enter [address] [place] [address] [phone] Prothrombin Time 13.9 seconds Normal 12.5-14.3 Inr 1.05 Normal 2 Laboratory test finding 11/12/[address] [address] [phone] Partial Thromboplastin Time 34.8 seconds Normal 24 .2-38.5 CBC With Differential 11/12/[address] [address] [phone] White Blood Count 6.5 10 Normal 4.0-10.0 [...] 36.0-66.0 Lymph % 21.0 % Low 24.0-44.0 [place] % 10.0 % High 0.0-5.0 Eos % 5.2 % High 0.0-3.0 Baso % 0.5 % Normal 0.0-1.0 Immature Granulocyte % 0.3 % Normal 0-3.0 Nucleated Red Blood Cell % 0.0 % Normal 0-0 Neutrophils # 4.1 10 Normal 1.5-8.5 Lymph # 1.4 10 Low 1.5-5.0 [place] # 0.7 10 Normal 0.0-0.8 Eos # 0.3 10 Normal 0.0-0.5 Baso # 0.0 10 Normal 0.0-0.2 Complete Blood Count 11/10/2020 [facility] [employer], pc Repairer Finished Metal: Dr Sharif Perez [place], [place] [id number] [phone] WBC 7.0 x10*3/UL 4.1 - 10.9 RBC [...] 2.0 - 7.8 Basic Metabolic Panel 11/10/[address] ts, pc Repairer Finished Metal: [place] [address] [phone] Glucose 117 mg/dL High 74 - 99 [...] >60 GFR >= 60 mL/min >60 5 1 Units are mL/min/1.73 m2 Chronic Kidney Disease Staging per NKF: Stage I & II GFR >=60 Normal to Mildly Decreased Stage III GFR 30-59 Moderately Decreased Stage IV GFR 15-29 Severely Decreased Stage V GFR <15 Very Little GFR Left ESRD GFR <15 on GREEN FEED ATTENDANT 2 THERAPUTIC HUMAN INR VALUES INDICATIONS NORMAL [...] LITTLE GFR LEFT ESRD GFR <15 ON GREEN FEED ATTENDANT Procedures Date Code Description Status 03/12/2019 [id number] Bone Mineral Density Test Comple earl 08/29/2017 [id number] Diabetic Foot Exam Completed 06/30/2017 [id number] Diabetic Foot Exam Completed 04/27/2017 [id number] Diabetic Retinal Eye Exam Comple [facility] 03/08/2017 [id number] Bone Mineral Density Test Comple earl 03/07/2015 [id number] Bone Mineral Density Test Comple earl 08/01/2012 [id number] Mammogram Completed 06/26/2010 [id number] Colonoscopy Completed 04/04/2009 [id number] Bone Mineral Density Test Comple earl 03/13/2007 [id number] Mammogram Completed 03/01/2007 [id number] Bone Mineral Density Test Comple earl 07/08/2006 [id number] Colonoscopy Completed 07/15/2004 [id number] Bone Mineral Density Test Comple [facility] Medical Devices Description No Information Available Encounters Type Date Location Provider Dx Diagnosis Office Visit 11/19/2020 10:30a [facility] PBishnu Vieyra M.D. 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 G25.0 Essential tremor F32.89 Other specified depressive e pisodes M15.9 Polyosteoarthritis, unspecif ied R29.6 Repeated falls E03.9 Hypothyroidism, unspecified I10 Essential (primary) hyperten dianelys K21.9 Gastro-esophageal reflux dis ease without esophagitis J34.89 Other specified disorders of nose and nasal sinuses Office Visit 07/21/2020 1:30p [facility] G25.0 Essential tremor R29.6 Repeated falls H91.93 Unspecified hearing loss, bi lateral G31.84 Mild cognitive impairment, s o stated M19.90 Unspecified osteoarthritis, unspecified site E03.9 Hypothyroidism, unspecified K21.9 Gastro-esophageal reflux dis ease without esophagitis I10 Essential (primary) hyperten dianelys Z23 Encounter for immunization Office Visit 06/30/2020 10:45a [facility] G25.0 Essential tremor G31.84 Mild cognitive impairment, s o stated E03.9 Hypothyroidism, unspecified K21.9 Gastro-esophageal reflux dis ease without esophagitis I10 Essential (primary) hyperten dianelys M85.80 Oth disrd of bone density an d structure, unspecified site M15.9 Polyosteoarthritis, unspecif ied F32.89 Other specified depressive e pisodes Office Visit 06/27/2020 1:00p [facility] PBishnu West JR PA G31.84 Mild cognitive impairment, s o stated Assessments Date Code Description Provider 11/19/2020 R04.0 Epistaxis Yakelin garcia M.D. 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 at [facility] 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 Health maintenance. She is getting the COVID vaccine December 01. I have approved discontinuing 2 of her B Vitamins, she's requesting I decrease the amount of meds she has. Functional Status Description No Information Available Mental Status Description No Information Available Referrals Refer to Reason for Referral Status Appt Date Jeff Dudley MD CONSULT FOR NASAL LESION Patient Notified 11/11 [facility] [address] [facility] [address] [place] [address] [phone] [facility] CONSULT FOR LT SHOULDER PAIN Sen t [address] [place] [address] [phone]
--- OUTSIDE RECORDS SUMMARY | 2020-12-25 21:25 | CCD | Continuity of Care Document ---
Author Author Hayde DUDLEY MD Organization Unknown Address [address] [place] [address] [address] [place] [address] Phone [phone] Care Team Providers Care Racing Secretary And Handicapper Name Role Phone Yakelin Thapa M.D. AUTM [phone] Sharif Perez MD @ [facility] Int AUTM AUTM Unavailable Problems Active Problems [...] SIG Qnty Indications Ordering Provide r Date Sinus Rinse Bottle Kit Packet use once daily 3Months Jeff Dudley MD 12/05/2020 Polysporin [id number]/GM Ointme nt apply ointment to each nostril three times a day for 10 days 14.200gm Jeff Dudley MD 12/05/2020 Saline Mist [place] 0.65% Solution 2 sprays to each nostril [...] po qd Unknown Calcium Citrate + D3 [id number] Tablets 2 po bid Unknown CPAP 6cm [...] CPT Code Status Date Vaccine Lot # 10668 Given 08/05/2010 Influenza Virus Split 3 Yrs And Above For Intramuscular Use 25833 Given 07/21/2010 Pneumococcal PPSV23 [id number] Refused 09/04/2015 Influenza Vaccine 3 Years Of Age Or Older (Flulaval) Vital Signs Date Vital Result Comment 12/05/2020 9:26am Height 63 inches 5'3" Weight 163.00 lb BMI (Body Mass Index) 28.9 kg/m2 [place] Body Weight 115 lb Weight 73.937 kg BSA (Body Surface Area) 1.77 m2 11/26/2020 8:06am Height 63 inches 5'3" Weight 163.00 lb BMI (Body Mass Index) 28.9 kg/m2 [place] Body Weight 115 lb Weight 73.937 kg BSA (Body Surface Area) 1.77 m2 Results Description No Information Available Procedures Description No Information Available Medical Devices Description No Information Available Encounters Type Date Location Provider Dx Diagnosis Office Visit 11/20/2020 9:20a [facility] Jeff Dudley MD R04.0 Epistaxis Office Visit 11/10/2020 1:45p [facility] Tyrell calhoun MD R04.0 Epistaxis Office Visit 09/11/2020 9:30a [facility] ALEXANDER Christian G47.33 Obstructive sleep apnea (adult) (pediatr ic) Assessments Date Code Description Provider 11/26/2020 R04.0 Epistaxis Jeff Dudley MD 11/20/2020 R04.0 Epistaxis Jeff Dudley MD 11/10/2020 R04.0 Epistaxis Tyrell Macias MD 09/11/2020 G47.33 Obstructive sleep apnea (adult) (pediatric) ALEXANDER Christian Plan of Treatment Future Appointment(s):* 09/21/2021 10:00 am - ALEXANDER Christian at [facility] Functional Status Description No Information Available Mental Status Description No Information Available Referrals Refer to Reason for Referral Status Appt Date Tyrell Maicas M.D. RECHECK LESION REF J PHILLIP INS MEDICARE Created 11/11/2020 [facility] [address] [address] [phone]
--- OUTSIDE RECORDS SUMMARY | 2020-12-25 21:25 | CCD | Continuity of Care Document ---
Author Author Hayde Vieyra M.D. Organization Unknown Address [address] [facility] [address] [place] [address] Phone [phone] Care Team Providers Care Deployment Specialist Name Role Phone Abdirizak Martin MD AUTM [phone] Raul Tierney DO AUTM [phone] Anne Jalloh OD AUTM Unavailable Ian Mora MD AUTM [phone] Yakelin Vieyra MD AUTM [phone] Chinmay Nieto DPM AUTM [phone] [facility] AUTM [phone] Margie Cohen, Maximilian AUTM [phone] SSV-Assist Sara AUTM [phone] Problems Active Problems Provider Date Benign essential [...] qd 35 0gm Yakelin Vieyra M.D. 06/19/2019 Refresh Tears 0.5% Solution 1 [...] 15tabs Yakelin Vieyra M.D. 1 12/19/2017 Nystatin 755208Cmwt/GM Powder apply to affected area(s) under breast [...] Mdi use as directed 1units Julien Leblanc MAINTENANCE AIDE 11/30/2017 Ventolin HFA 108(90Base) mcg/Act A erosol 2 puffs four times a day as needed 8gm Yakelin quintero M.D. 11/21/2017 Centrum Silver Tablets 1 by mouth everyday 30tabs Yakelin Vieyra M.D. 09/12/20 17 Fluticasone Propionate 50mcg/Act Suspension 2 sprays each nostril daily 16gm Yakelin martinez M.D. 08/17/2017 Preparation H 0.25-14-74.9% Ointme nt qid prn for hemorrhoids-may keep at bedside & self apply 57gm Ruchi Jeronimo FNP 07/07/2017 Tums 500mg Chewtabs ch ew 1 tab bid 180units Yakelin Vieyra M.D. 06/15/2017 Simethicone 80mg Chewtabs one tab 4 times daily after meals and at bedtime as needed burping 120units Yakelin Vieyra M.D. 05/17/2017 Colace 100mg Capsules 1 by mouth twice a day as needed for constipation 60caps Rashel Conn, NEVAEH P 03/15/2017 Meclizine HCL 25mg Tablets take one tablet by mouth every 6 hours as needed dizziness 30tabs Yakelin Vieyra M.D. 02/22/2017 Tussin DM 100-10mg/5ML Liquid give 10cc by mouth as needed every 4 hours for cough 118ml Yakelin Vieyra M.D. 01/28/2017 Lumbar Support Cushion [facility] prn Yakelin Vieyra M.D. 12/01/2015 Aspercreme W/Lidocaine 4% Cream apply a thin layer to affected area every 6 hours prn pain 1units Ruchi Jeronimo FNP 11/27/2015 Restasis 0.05% Emulsion 1 drop both eyes twice a day further refills must come from eye 120unneeraj Vieyra M.D. 09/08/2015 Roller Walker W/ Sit [facility] prn Yakelin Vieyra M.D. 08/26/2015 Saline Nasal Burton 0.65% Solution 2 sprays each nostril q 6hrs prn dry nose 1unRuchi Johns FNP 08/26/2015 Duloxetine HCL 60mg Caps DR Bessie take [...] Administration Of Flu Vaccine Inj ection Rashel Conn, [facility] 08/31/2017 Administration Of Flu Vaccine Inj kassyion Yakelin Vieyra M.D. 09/21/20 10 Administration Of Flu Vaccine Inj kassyion Ruchi JeronimoHEDGE FUND MANAGER 08/20/2008 Administration [facility] 08/31/2007 Administration Of Flu Vaccine Inj anna Vieyra M.D. 08/31/20 04 Administration Of Flu Vaccine Inj anna Vieyra M.D. 09/26/20 03 Immunizations CPT Code Status Date Vaccine Reaction Lot # [id number] Given 07/21/2020 Influenza Vaccin e Quadrivalent Preser/Antibiotic Free Im Use [id number] U-Flu Given 09/02/2018 Influenza,Unspecified 98004 Given 08/31/2017 Influenza Vaccin e Quadrivalent Preser/Antibiotic Free Im Use [id number] 40536 Given 12/06/2016 Adacel- Tetanus Diphtheria Pertussis (Age64 & Under) [id number] 09307 Given 08/25/2015 PPD 15 omm negative C [id number] 63233 Given 01/23/2015 Prevnar 13 [id number] 27462 Given 09/21/2010 Influenza Virus Vaccine 86701 Given 12/16/2008 Pneumovax 23 29135 Given 08/20/2008 Influenza Virus Vaccine 29502 Given 08/31/2007 Influenza Virus Vaccine 82514 Given 08/31/2004 Influenza Virus Vaccine 70364 Given 09/26/2003 Influenza Virus Vaccine 35463 Given 09/04/2002 Influenza Virus Vaccine 08839 Given 08/09/2001 Influenza Virus Vaccine Vital Signs [...] H/L Range Note Complete Blood Count 12/09/2020 [facility] Chain Dyer: [place] [address] [phone] WBC 6.1 x10*3/UL 4.1 - 10.9 RBC [...] 2.0 - 7.8 Basic Metabolic Panel 12/09/2020 [facility] Chain Dyer: [place] [address] [phone] Glucose 92 mg/dL 74 - 99 1 [...] mL/min >60 2 Laboratory test finding 12/09/2020 [facility] Chain Dyer: [place] [address] [phone] Thyroid Stimulating Hormone 2.16 uIU/mL 0.3 6 - 3.74 CBC With Differential 11/12/2020 [facility] [address] [place] [address] [phone] White Blood Count 6.3 10 Normal 4.0-10.0 [...] 36.0-66.0 Lymph % 32.3 % Normal 24.0-44.0 Runnels % 11.9 % High 0.0-5.0 Eos % 5.7 % High 0.0-3.0 Baso % 0.8 % Normal 0.0-1.0 Immature Granulocyte % 0.3 % Normal 0-3.0 Nucleated Red Blood Cell % 0.0 % Normal 0-0 Neutrophils # 3.1 10 Normal 1.5-8.5 Lymph # 2.0 10 Normal 1.5-5.0 Runnels # 0.8 10 Normal 0.0-0.8 Eos # 0.4 10 Normal 0.0-0.5 Baso # 0.1 10 Normal 0.0-0.2 Basic Metabolic Profile 11/12/[address] [address] [phone] Glucose, Fasting 123 mg/dL High 70-100 Blood [...] & Screen -Incl Blood Type,Rick,AB SC 11/12/[address] [address] [phone] Blood Type O POSITIVE Normal AB Screen (Indirect Brionna)Vis NEGATIVE Normal Prothrombin Time/Inr 11/12/2020 [facility] enter [address] [place] [address] [phone] Prothrombin Time 13.9 seconds Normal 12.5-14.3 Inr 1.05 Normal 4 Laboratory test finding 11/12/[address] [address] [phone] Partial Thromboplastin Time 34.8 seconds Normal 24 .2-38.5 CBC With Differential 11/12/[address] [address] [phone] White Blood Count 6.5 10 Normal 4.0-10.0 [...] 36.0-66.0 Lymph % 21.0 % Low 24.0-44.0 Runnels % 10.0 % High 0.0-5.0 Eos % 5.2 % High 0.0-3.0 Baso % 0.5 % Normal 0.0-1.0 Immature Granulocyte % 0.3 % Normal 0-3.0 Nucleated Red Blood Cell % 0.0 % Normal 0-0 Neutrophils # 4.1 10 Normal 1.5-8.5 Lymph # 1.4 10 Low 1.5-5.0 Runnels # 0.7 10 Normal 0.0-0.8 Eos # 0.3 10 Normal 0.0-0.5 Baso # 0.0 10 Normal 0.0-0.2 Complete Blood Count 11/10/2020 [facility] Chain Dyer: Dr Sharif [place], [place] [id number] [phone] WBC 7.0 x10*3/UL 4.1 - 10.9 RBC [...] 2.0 - 7.8 Basic Metabolic Panel 11/10/2020 kina Henry Chain Dyer: [place] [address] [phone] Glucose 117 mg/dL High 74 - 99 [...] LITTLE GFR LEFT ESRD GFR <15 ON CUTTER OPERATOR BRICK 3 Units are mL/min/1.73 m2 Chronic Kidney Disease Staging per NKF: Stage I & II GFR >=60 Normal to Mildly Decreased Stage III GFR 30-59 Moderately Decreased Stage IV GFR 15-29 Severely Decreased Stage V GFR <15 Very Little GFR Left ESRD GFR <15 on CUTTER OPERATOR BRICK 4 THERAPUTIC HUMAN INR VALUES INDICATIONS NORMAL [...] LITTLE GFR LEFT ESRD GFR <15 ON CUTTER OPERATOR BRICK Procedures Date Code Description Status 03/12/2019 [id number] Bone Mineral Density Test Comple earl 08/29/2017 [id number] Diabetic Foot Exam Completed 06/30/2017 [id number] Diabetic Foot Exam Completed 04/27/2017 [id number] Diabetic Retinal Eye Exam Comple earl 03/08/2017 [id number] Bone Mineral Density Test Comple earl 03/07/2015 [id number] Bone Mineral Density Test Comple earl 08/01/2012 [id number] Mammogram Completed 06/26/2010 [id number] Colonoscopy Completed 04/04/2009 [id number] Bone Mineral Density Test Comple earl 03/13/2007 [id number] Mammogram Completed 03/01/2007 [id number] Bone Mineral Density Test Comple earl 07/08/2006 [id number] Colonoscopy Completed 07/15/2004 [id number] Bone Mineral Density Test Comple earl Medical Devices Description No Information Available Encounters Type Date Location Provider Dx Diagnosis Office Visit 11/19/2020 10:30a [facility] V[facility] M.[facility]. 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 G25.0 Essential tremor F32.89 Other specified depressive e pisodes M15.9 Polyosteoarthritis, unspecif ied R29.6 Repeated falls E03.9 Hypothyroidism, unspecified I10 Essential (primary) hyperten dianelys K21.9 Gastro-esophageal reflux dis ease without esophagitis J34.89 Other specified disorders of nose and nasal sinuses Office Visit 07/21/2020 1:30p [facility] PBishnu Vieyra M.D. G25.0 Essential tremor R29.6 Repeated falls H91.93 Unspecified hearing loss, bi lateral G31.84 Mild cognitive impairment, s o stated M19.90 Unspecified osteoarthritis, unspecified site E03.9 Hypothyroidism, unspecified K21.9 Gastro-esophageal reflux dis ease without esophagitis I10 Essential (primary) hyperten dianelys Z23 Encounter for immunization Office Visit 06/30/2020 10:45a [facility] guzman M.D. G25.0 Essential tremor G31.84 Mild cognitive impairment, s o stated E03.9 Hypothyroidism, unspecified K21.9 Gastro-esophageal reflux dis ease without esophagitis I10 Essential (primary) hyperten dianelys M85.80 Oth disrd of bone density an d structure, unspecified site M15.9 Polyosteoarthritis, unspecif ied F32.89 Other specified depressive e pisodes Office Visit 06/27/2020 1:00p [facility] [place] [facility], [place] G31.84 Mild cognitive [...] site Yakelin Vieyra M.D. 12/09/2020 E03.9 Hypothyroidism, unspecified Katya Vieyra M.D. 12/09/2020 I10 Essential (primary) hypertension Yakelin Vieyra M.D. 12/09/2020 D64.9 Anemia, unspecified Yakelin aggarwal M.D. 11/19/2020 R04.0 Epistaxis Yakelin garica M.D. 11/19/2020 U07.1 Covid-19 Yakelin garcia M.D. [...] (primary) hypertension Yakelin Vieyra M.D. 11/10/2020 U07.1 CovidReymundo Murillo M.D. 11/10/2020 F32.89 Other specified depressive episo bro Yakelin Vieyra M.D. 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 11/10/2020 M15.9 Polyosteoarthritis, unspecified Yakelin Vieyra M.D. 11/10/2020 R04.0 Epistaxis Yakelin garcia M.D. 11/10/2020 E03.9 Hypothyroidism, unspecified Katya Vieyra M.D. 11/10/2020 K21.9 Gastro-esophageal reflux disease without esophagitis Yakelin Vieyra M.D. 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 07/21/2020 M19.90 Unspecified osteoarthritis, unsp [...] impairment, so st ated ALEXANDER Nieves JR Plan of Treatment Future Appointment(s):* 04/20/2021 11:00 am - Yakelin Vieyra M.D. at [facility] * 04/20/2021 10:40 am - [facility] * 01/22/2021 1:15 pm - Yakelin Vieyra M.D. at [facility] 12/09/2020 - Yakelin Vieyra M.D.* [...] CONSULT FOR NASAL LESION Patient Notified 11/11 [facility] [address] [facility] [address] [place] [address] [phone] [facility] CONSULT FOR LT SHOULDER PAIN Sen t [address] [place] [address] [phone]
--- OUTSIDE RECORDS SUMMARY | 2020-12-25 21:25 | CCD | Continuity of Care Document ---
Author Author Hayde Vieyra M.D. Organization Unknown Address [address] [facility] [address] [place] [address] Phone [phone] Care Team Providers Care Roller Inspector And Mender Name Role Phone Abdirizak Martin MD AUTM [phone] Raul Tierney DO AUTM [phone] Anne Jalloh OD AUTM Unavailable Ian Mora MD AUTM [phone] Yakelin Vieyra MD AUTM [phone] Chinmay Nieto DPM AUTM [phone] [facility] AUTM [phone] Margie Cohen, Maximilian AUTM [phone] SSV-Assist Sara AUTM [phone] Problems Active Problems Provider Date Benign essential [...] 15tabs Yakelin Vieyra M.D. 1 12/19/2017 Nystatin 974141Cdfj/GM Powder apply to affected area(s) under breast [...] Mdi use as directed 1units Julien Leblanc FOREST NURSERY WORKER 11/30/2017 Ventolin HFA 108(90Base) mcg/Act A erosol [...] Yakelin Vieyra M.D. 01/28/2017 Lumbar Support Cushion [facility] prn Yakelin Vieyra M.D. 12/01/2015 Aspercreme W/Lidocaine 4% Cream apply a thin layer to affected area every 6 hours prn pain 1units Ruchi Jeronimo FNP 11/27/2015 Restasis 0.05% Emulsion 1 drop both eyes twice a day further refills must come from eye 120unneeraj Vieyra M.D. 09/08/2015 Roller Walker W/ Sit [facility] prn Yakelin Vieyra M.D. 08/26/2015 Saline Nasal [place]rakers 0.65% Solution 2 sprays each nostril q [...] Of Flu Vaccine Inj ection Rashel Conn, [facility] 08/31/2017 Administration Of Flu Vaccine Inj kassyion Yakelin Vieyra M.D. 09/21/20 10 Administration Of Flu Vaccine Inj kassyion Ruchi JeronimoCLAIMS REPRESENTATIVE 08/20/2008 Administration Of [facility] 08/31/2007 Administration Of Flu Vaccine Inj anna Vieyra M.D. 08/31/20 04 Administration Of Flu Vaccine Inj anna Vieyra M.D. 09/26/20 03 Immunizations CPT Code Status Date Vaccine Reaction Lot # [id number] Given 07/21/2020 Influenza Vaccin e Quadrivalent Preser/Antibiotic Free Im Use [id number] U-Flu Given 09/02/2018 Influenza,Unspecified 80500 Given 08/31/2017 Influenza Vaccin e Quadrivalent Preser/Antibiotic Free Im Use [id number] 90399 Given 12/06/2016 Adacel- Tetanus Diphtheria Pertussis (Age64 & Under) [id number] 90176 Given 08/25/2015 PPD 15 omm negative C [id number] 49508 Given 01/23/2015 Prevnar 13 [id number] 13978 Given 09/21/2010 Influenza Virus Vaccine 09518 Given 12/16/2008 Pneumovax 23 68252 Given 08/20/2008 Influenza Virus Vaccine 51855 Given 08/31/2007 Influenza Virus Vaccine 48251 Given 08/31/2004 Influenza Virus Vaccine 97058 Given 09/26/2003 Influenza Virus Vaccine 64187 Given 09/04/2002 Influenza Virus Vaccine 94609 Given 08/09/2001 Influenza Virus Vaccine Vital Signs [...] H/L Range Note Complete Blood Count 12/09/2020 [facility] Knot Picker Cloth: [place] [address] [phone] WBC 6.1 x10*3/UL 4.1 - 10.9 RBC [...] 2.0 - 7.8 Basic Metabolic Panel 12/09/2020 [facility] Knot Picker Cloth: [place] [address] [phone] Glucose 92 mg/dL 74 - 99 1 [...] mL/min >60 2 Laboratory test finding 12/09/2020 [facility] Knot Picker Cloth: [place] [address] [phone] Thyroid Stimulating Hormone 2.16 uIU/mL 0.3 6 - 3.74 CBC With Differential 11/12/2020 [facility] [address] [place] [address] [phone] White Blood Count 6.3 10 Normal 4.0-10.0 [...] 36.0-66.0 Lymph % 32.3 % Normal 24.0-44.0 Butte % 11.9 % High 0.0-5.0 Eos % 5.7 % High 0.0-3.0 Baso % 0.8 % Normal 0.0-1.0 Immature Granulocyte % 0.3 % Normal 0-3.0 Nucleated Red Blood Cell % 0.0 % Normal 0-0 Neutrophils # 3.1 10 Normal 1.5-8.5 Lymph # 2.0 10 Normal 1.5-5.0 Butte # 0.8 10 Normal 0.0-0.8 Eos # 0.4 10 Normal 0.0-0.5 Baso # 0.1 10 Normal 0.0-0.2 Basic Metabolic Profile 11/12/[address] [address] [phone] Glucose, Fasting 123 mg/dL High 70-100 Blood [...] & Screen -Incl Blood Type,Rick,AB SC 11/12/[address] [address] [phone] Blood Type O POSITIVE Normal AB Screen (Indirect Brionna)Vis NEGATIVE Normal Prothrombin Time/Inr 11/12/2020 [facility] enter [address] [place] [address] [phone] Prothrombin Time 13.9 seconds Normal 12.5-14.3 Inr 1.05 Normal 4 Laboratory test finding 11/12/[address] [address] [phone] Partial Thromboplastin Time 34.8 seconds Normal 24 .2-38.5 CBC With Differential 11/12/[address] [address] [phone] White Blood Count 6.5 10 Normal 4.0-10.0 [...] 36.0-66.0 Lymph % 21.0 % Low 24.0-44.0 Butte % 10.0 % High 0.0-5.0 Eos % 5.2 % High 0.0-3.0 Baso % 0.5 % Normal 0.0-1.0 Immature Granulocyte % 0.3 % Normal 0-3.0 Nucleated Red Blood Cell % 0.0 % Normal 0-0 Neutrophils # 4.1 10 Normal 1.5-8.5 Lymph # 1.4 10 Low 1.5-5.0 Butte # 0.7 10 Normal 0.0-0.8 Eos # 0.3 10 Normal 0.0-0.5 Baso # 0.0 10 Normal 0.0-0.2 Complete Blood Count 11/10/2020 [facility] Knot Picker Cloth: Dr Sharif [place], [place] [address] [phone] WBC 7.0 x10*3/UL 4.1 - 10.9 RBC [...] 7.8 Basic Metabolic Panel 11/10/2020 kina Henry Knot Picker Cloth: [place] [address] [phone] Glucose 117 mg/dL High 74 - 99 [...] LITTLE GFR LEFT ESRD GFR <15 ON FINANCIAL ACCOUNTING ANALYST 3 Units are mL/min/1.73 m2 Chronic Kidney Disease Staging per NKF: Stage I & II GFR >=60 Normal to Mildly Decreased Stage III GFR 30-59 Moderately Decreased Stage IV GFR 15-29 Severely Decreased Stage V GFR <15 Very Little GFR Left ESRD GFR <15 on FINANCIAL ACCOUNTING ANALYST 4 THERAPUTIC HUMAN INR VALUES INDICATIONS NORMAL [...] LITTLE GFR LEFT ESRD GFR <15 ON FINANCIAL ACCOUNTING ANALYST Procedures Date Code Description Status 03/12/2019 [id number] Bone Mineral Density Test Comple earl 08/29/2017 [id number] Diabetic Foot Exam Completed 06/30/2017 [id number] Diabetic Foot Exam Completed 04/27/2017 [id number] Diabetic Retinal Eye Exam Comple earl 03/08/2017 [id number] Bone Mineral Density Test Comple earl 03/07/2015 [id number] Bone Mineral Density Test Comple earl 08/01/2012 [id number] Mammogram Completed 06/26/2010 [id number] Colonoscopy Completed 04/04/2009 [id number] Bone Mineral Density Test Comple earl 03/13/2007 [id number] Mammogram Completed 03/01/2007 [id number] Bone Mineral Density Test Comple earl 07/08/2006 [id number] Colonoscopy Completed 07/15/2004 695296667 Bone Mineral Density Test Comple earl Medical Devices Description No Information Available Encounters Type Date Location Provider Dx Diagnosis Office Visit 11/19/2020 10:30a [facility] M.[facility]. 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 G25.0 Essential tremor F32.89 Other specified depressive e pisodes M15.9 Polyosteoarthritis, unspecif ied R29.6 Repeated falls E03.9 Hypothyroidism, unspecified I10 Essential (primary) hyperten dianelys K21.9 Gastro-esophageal reflux dis ease without esophagitis J34.89 Other specified disorders of nose and nasal sinuses Office Visit 07/21/2020 1:30p [facility] PB[facility]nu Vieyra M.D. G25.0 Essential tremor R29.6 Repeated falls H91.93 Unspecified hearing loss, bi lateral G31.84 Mild cognitive impairment, s o stated M19.90 Unspecified osteoarthritis, unspecified site E03.9 Hypothyroidism, unspecified K21.9 Gastro-esophageal reflux dis ease without esophagitis I10 Essential (primary) hyperten dianelys Z23 Encounter for immunization Office Visit 06/30/2020 10:45a [facility] guzman M.D. G25.0 Essential tremor G31.84 Mild cognitive impairment, s o stated E03.9 Hypothyroidism, unspecified K21.9 Gastro-esophageal reflux dis ease without esophagitis I10 Essential (primary) hyperten dianelys M85.80 Oth disrd of bone density an d structure, unspecified site M15.9 Polyosteoarthritis, unspecif ied F32.89 Other specified depressive e pisodes Office Visit 06/27/2020 1:00p [facility] [place] [facility], [place] G31.84 Mild [...] Yakelin aggarwal M.D. 11/19/2020 R04.0 Epistaxis Yakelin garcia M.D. [...] (primary) hypertension Yakelin Vieyra M.D. 11/10/2020 U07.1 CovideRymundo Murillo M.D. 11/10/2020 F32.89 Other specified depressive episo bro Yakelin Vieyra M.D. 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 11/10/2020 M15.9 Polyosteoarthritis, unspecified Yakelin Vieyra M.D. 11/10/2020 R04.0 Epistaxis Yakelin garcia M.D. 11/10/2020 E03.9 Hypothyroidism, unspecified Katya Vieyra M.D. 11/10/2020 K21.9 Gastro-esophageal reflux disease without esophagitis Yakelin Vieyra M.D. 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 09/08/2020 R29.6 Repeated falls Yaklein garcia M.D. 09/08/2020 E03.9 Hypothyroidism, unspecified Katya [...] Vieyra M.D. 06/30/2020 I10 Essential (primary) hypertension Yaklein Vieyra M.D. 06/30/2020 M85.80 Other specified diso rders of bone density and structure, unspecified site Yakelin Vieyra M.D. 06/30/2020 M15.9 Polyosteoarthritis, unspecified Yakelin Vieyra M.D. 06/30/2020 F32.89 Other specified depressive episo bro Yakelin Vieyra M.D. 06/27/2020 G31.84 Mild cognitive impairment, so st ated ALEXANDER Nieves JR Plan of Treatment Future Appointment(s):* 04/20/2021 11:00 am - Yakelin Vieyra M.D. at [facility] * 04/20/2021 10:40 am - [facility] * 01/22/2021 1:15 pm - Yakelin Vieyra M.D. at [facility] 12/09/2020 - Yakelin Vieyra M.D.* [...] CONSULT FOR NASAL LESION Patient Notified 11/11 [facility] [address] [facility] [address] [place] [address] [phone] [facility] CONSULT FOR LT SHOULDER PAIN Sen t [address] [place] [address] [phone]
--- OUTSIDE RECORDS SUMMARY | 2020-12-25 21:26 | CCD | Continuity of Care Document ---
Author Author Hayde Vieyra M.D. Organization Unknown Address [address] [place] [facility] [address] [place] [address] Phone [phone] Care Team Providers Care Optoelectronic Technician Name Role Phone Abdirizak Martin MD AUTM [phone] Raul Tierney DO AUTM [phone] Anne Jalloh OD AUTM Unavailable Ian Mora MD AUTM [phone] Yakelin Vieyra MD AUTM [phone] Chinmay Nieto DPM AUTM [phone] [place] [facility] AUTM [phone] Margie Cohen, Maximilian AUTM [phone] SSV-Assist Sara AUTM [phone] Problems Active Problems Provider Date Benign essential [...] mouth daily Yakelin Vieyra M.D. 11/03/20 20 Super B Complex/Vitamin C Tablets 1 by mouth every day 30tabs Yakelin Vieyra M.D. 09/24/20 20 Vitamin D 50mcg (2000 Ut) Tablets [...] Vieyra M.D. 06/19/2019 Biotene Dry Mouth Liquid as directed as needed 1Bottle Rashel Conn, [employer]WING M[employer]ES 12/18/2018 L-Lysine 1000mg Tablets 3 by mouth every day 90tabs Yakelin Vieyra M.D. 12/18/19 19 Refresh Tears 0.5% Solution 2 drops into both eyes 2 times a day (dry eyes) 30units NEVAEH LeblancP 12/18/2018 Losartan Potassium 50mg Tablets 1 by mouth every day 30tabs Yakelin Vieyra M.D. 12/06/19 19 Milk Of Magnesia 400mg/5ML Suspens ion 30mls by mouth daily /prn/ constipation 1Bottdarvin Vieyra M.D. 10/24/2018 Levothyroxine Sodium 125mcg Tablet s 1/2 tab by mouth every day 15tabs Yakelin Vieyra M.D. 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 05/17/2017 Colace 100mg Capsules 1 [...] Yakelin Vieyra M.D. 01/28/2017 Lumbar Support Cushion [facility] [place] Yakelin Vieyra M.D. 12/01/2015 Aspercreme W/Lidocaine 4% Cream apply a thin layer to affected area every 6 hours prn pain 1unRuchi Johns FNP 11/27/2015 Restasis 0.05% Emulsion 1 drop both eyes twice a day for 1 month . further refills must come from eye 120blanca Vieyra M.D. 09/08/2015 Roller Walker W/ Sit [facility] [place] [facility] Yakelin Vieyra M.D. 08/26/2015 Shower Chair yashn Yakelin Vieyra M.D. 08/26/2015 Saline Nasal [place] 0.65% Solution 2 sprays each nostril upto 10 times per day-may keep at bedside and self administer 1unRuchi Johns FNP 08/26/2015 Ibuprofen 200mg Tablets 1 tab every 6 hours as needed 120tabs Yakelin Vieyra M.D. 08/26/20 15 Folic Acid 400mcg Tablets 1 by mouth every day 30tabs Yakelin Vieyra M.D. 08/07/20 15 Super B-Complex/Vitamin C& Folic Acid Tablets 1 every day by mouth 90tabs Juan Ramon Willingham 08/07/2015 Duloxetine HCL 60mg Caps DR La take 1 capsule daily po with 30mg tab 30caps Yakelin Vieyra M.D. 01/22/2014 Preservision Areds Tablets 2 tabs by mouth twice a day 120tabs Yakelin Vieyra M.D. 2012 Simvastatin 20mg Tablets take one tablet by mouth at bedtime 30tabs Yakelin Vieyra M.D. 04/09 [place] 5-325mg Tablets 1/2 tab every 4 hours as needed as needed for pain 90tabs Alis Juarez , JANESSA Voltaren 1% Gel apply 2 grams as needed four times a day for shoulder pain 100gm Yakelin martinez M.D. Clopidogrel Bisulfate 75mg Tablets 1 by mouth every day Neurology Unknown Capsaicin 0.025% Cream as nee ded feet Yakelin Vieyra M.D. Mupirocin 2% Ointment three times a day as needed use as directed Unknown 0 History Medications Amoxicillin/Clavulanate Potassium 875-125mg Tablets take one tablet twice a day for 10 days 20tabs Lisandra Perez MD 11/05/2020 - 11/14/2020 Medications Administered in Office Medication SIG Qnty Indications Ordering Provider Date Administration Of Flu Vaccine Inj kassyion Yakelin Vieyra M.D. 07/21/20 20 Administration Of Flu Vaccine Inj ection JANESSA Leblanc 08/31/2017 Administration Of Flu Vaccine Inj kasysion Yakelin Vieyra M.D. 09/21/20 10 Administration Of Flu Vaccine Inj ection Ruchi Jeronimo,JANESSA 08/20/2008 Administration Of Flu Vaccine Inj ection Ruchi Jeronimo,S[employer]ERSON [employer] M[employer]INES 08/31/2007 Administration Of Flu Vaccine Inj ection Yakelin Vieyra M.D. 08/31/20 04 Administration Of Flu Vaccine Inj ection Yakelin Vieyra M.D. 09/26/20 03 Immunizations CPT Code Status Date Vaccine Reaction Lot # [id number] Given 07/21/2020 Influenza Vaccin e Quadrivalent Preser/Antibiotic Free Im Use [id number] U-Flu Given 09/02/2018 Influenza,Unspecified 60316 Given 08/31/2017 Influenza Vaccin e Quadrivalent Preser/Antibiotic Free Im Use [id number] 71810 Given 12/06/2016 Adacel- Tetanus Diphtheria Pertussis (Age64 & Under) [id number] 19916 Given 08/25/2015 PPD 08-27-15 omm negative C [id number] 54206 Given 01/23/2015 Prevnar 13 [id number] Given 09/21/2010 Influenza Virus Vaccine 72497 Given 12/16/2008 Pneumovax 23 47551 Given 08/20/2008 Influenza Virus Vaccine 05931 Given 08/31/2007 Influenza Virus Vaccine 11341 Given 08/31/2004 Influenza Virus Vaccine 12039 Given 09/26/2003 Influenza Virus Vaccine 35708 Given 09/04/2002 Influenza Virus Vaccine 01656 Given 08/09/2001 Influenza Virus Vaccine Vital Signs Date Vital Result Comment 11/10/2020 9:56am BP Systolic 122 mmHg RT Arm BP Diastolic 74 mmHg RT Arm Heart Rate 96 /min Height 62.75 inches 5'2.75" Weight 163.00 lb verbal BMI (Body Mass Index) 29.1 kg/m2 10/13/2020 1:10pm BP Systolic 146 mmHg BP Diastolic 74 mmHg Heart Rate 98 /min Height 62.75 inches 5'2.75" Weight 161.00 lb BMI (Body Mass Index) 28.7 kg/m2 Results Test Acquired Date Facility Test Result H/L Range Note CBC With Differential 11/12/2020 [facility] [address] [place] [address] [phone] White Blood Count 6.3 10 Normal 4.0-10.0 [...] 36.0-66.0 Lymph % 32.3 % Normal 24.0-44.0 [place] % 11.9 % High 0.0-5.0 Eos % 5.7 % High 0.0-3.0 Baso % 0.8 % Normal 0.0-1.0 Immature Granulocyte % 0.3 % Normal 0-3.0 Nucleated Red Blood Cell % 0.0 % Normal 0-0 Neutrophils # 3.1 10 Normal 1.5-8.5 Lymph # 2.0 10 Normal 1.5-5.0 [place] # 0.8 10 Normal 0.0-0.8 Eos # 0.4 10 Normal 0.0-0.5 Baso # 0.1 10 Normal 0.0-0.2 Basic Metabolic Profile 11/12/[address] [address] [phone] Glucose, Fasting 123 mg/dL High 70-100 Blood [...] & Screen -Incl Blood Type,Rick,AB SC 11/12/[address] [address] [phone] Blood Type O POSITIVE Normal AB Screen (Indirect Brionna)Vis NEGATIVE Normal Prothrombin Time/Inr 11/12/2020 [facility] enter [address] [place] [address] [phone] Prothrombin Time 13.9 seconds Normal 12.5-14.3 Inr 1.05 Normal 2 Laboratory test finding 11/12/2020 [facility] [address] [place] [address] [phone] Partial Thromboplastin Time 34.8 seconds Normal 24 .2-38.5 CBC With Differential 11/12/2020 [facility] [address] [place] [address] [phone] White Blood Count 6.5 10 Normal 4.0-10.0 [...] 36.0-66.0 Lymph % 21.0 % Low 24.0-44.0 [place] % 10.0 % High 0.0-5.0 Eos % 5.2 % High 0.0-3.0 Baso % 0.5 % Normal 0.0-1.0 Immature Granulocyte % 0.3 % Normal 0-3.0 Nucleated Red Blood Cell % 0.0 % Normal 0-0 Neutrophils # 4.1 10 Normal 1.5-8.5 Lymph # 1.4 10 Low 1.5-5.0 [place] # 0.7 10 Normal 0.0-0.8 Eos # 0.3 10 Normal 0.0-0.5 Baso # 0.0 10 Normal 0.0-0.2 Complete Blood Count 11/10/2020 [place] [facility] [employer] Brush Maker Machine: [place] [address] [phone] WBC 7.0 x10*3/UL 4.1 - 10.9 RBC [...] 2.0 - 7.8 Basic Metabolic Panel 11/10/2020 [facility] Brush Maker Machine: Dr Sharif Perez [place], [place] [id number] [phone] Glucose 117 mg/dL High 74 - 99 [...] mL/min >60 5 PT & Aptt 05/21/2020 [facility] [address] [place], [place] [id number] [phone] Prothrombin Time 13.8 seconds Normal 11.8-14.0 Inr 1.09 Normal 6 Partial Thromboplastin Time 34.3 seconds Normal 25.0-38.4 Cardiac Marker Panel 05/21/2020 [facility] enter [address] [place], [place] [id number] [phone] CPK Creatine Phosphokinase 89 U/L Normal 26-19 2 CK-MB Value Mass 2.5 NG/ML Normal <3.6 MB/CK Relative Index 2.81 Normal < Or =4 7 Troponin I < 0.02 NG/ML Normal < 0.10 8 Basic Metabolic Profile 05/21/2020 [place] [id number] [phone] Glucose, Fasting 87 mg/dL Normal 70-100 Blood [...] mg/dL Normal 8.8-10.2 Laboratory test finding 05/21/[address] [address] [phone] Magnesium Level 2.3 mg/dL Normal 1.8-2.4 CBC With Differential 05/21/[address] [address] [phone] White Blood Count 5.9 10 Normal 4.0-10.0 [...] 36.0-66.0 Lymph % 36.0 % Normal 24.0-44.0 [place] % 10.4 % High 0.0-5.0 Eos % 6.9 % High 0.0-3.0 Baso % 0.8 % Normal 0.0-1.0 Immature Granulocyte % 0.2 % Normal 0-3.0 Nucleated Red Blood Cell % 0.0 % Normal 0-0 Neutrophils # 2.7 10 Normal 1.5-8.5 Lymph # 2.1 10 Normal 1.5-5.0 [place] # 0.6 10 Normal 0.0-0.8 Eos # 0.4 10 Normal 0.0-0.5 Baso # 0.1 10 Normal 0.0-0.2 Type & Screen -Incl Blood Type,Rick,AB SC 05/21/2020 [place] [address] [place] [address] [phone] Blood Type O POSITIVE Normal AB Screen (Indirect Brionna)Vis NEGATIVE Normal 1 Units are mL/min/1.73 m2 Chronic Kidney Disease Staging per NKF: Stage I & II GFR >=60 Normal to Mildly Decreased Stage III GFR 30-59 Moderately Decreased Stage IV GFR 15-29 Severely Decreased Stage V GFR <15 Very Little GFR Left ESRD GFR <15 on TRAIN BRAKEMAN 2 THERAPUTIC HUMAN INR VALUES INDICATIONS NORMAL [...] LITTLE GFR LEFT ESRD GFR <15 ON TRAIN BRAKEMAN 6 THERAPUTIC HUMAN INR VALUES INDICATIONS NORMAL [...] 8 Troponin I Reference Interva l for Siemens [place] LOCI: 99th Percentile= 0.00-0.045 ng/ml Risk Stratification: [...] Little GFR Left ESRD GFR <15 on TRAIN BRAKEMAN Procedures Date Code Description Status 05/26/2020 33543 EKG/Interpretation & Report Comp leted 03/12/2019 [id number] Bone Mineral Density Test [facility] 08/29/2017 [id number] Diabetic Foot Exam Completed 06/30/2017 [id number] Diabetic Foot Exam Completed 04/27/2017 [id number] Diabetic Retinal Eye Exam Comple [facility] 03/08/2017 [id number] Bone Mineral Density Test [facility] 03/07/2015 [id number] Bone Mineral Density Test [facility] 08/01/2012 [id number] Mammogram Completed 06/26/2010 [id number] Colonoscopy Completed 04/04/2009 [id number] Bone Mineral Density Test [facility] 03/13/2007 [id number] Mammogram Completed 03/01/2007 [id number] Bone Mineral Density Test [facility] 07/08/2006 [id number] Colonoscopy Completed 07/15/2004 [id number] Bone Mineral Density Test [facility] Medical Devices Description No Information Available Encounters Type Date Location Provider Dx Diagnosis Office Visit 11/10/2020 10:00a [facility] Vieyra M.D. 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 G25.0 Essential tremor F32.89 Other specified depressive e pisodes M15.9 Polyosteoarthritis, unspecif ied R29.6 Repeated falls E03.9 Hypothyroidism, unspecified I10 Essential (primary) hyperten dianelys K21.9 Gastro-esophageal reflux dis ease without esophagitis J34.89 Other specified disorders of nose and nasal sinuses Office Visit 07/21/2020 1:30p [place] [facility] G25.0 Essential tremor R29.6 Repeated falls H91.93 Unspecified hearing loss, bi lateral G31.84 Mild cognitive impairment, s o stated M19.90 Unspecified osteoarthritis, unspecified site E03.9 Hypothyroidism, unspecified K21.9 Gastro-esophageal reflux dis ease without esophagitis I10 Essential (primary) hyperten dianelys Z23 Encounter for immunization Office Visit 06/30/2020 10:45a [place] [facility] G25.0 Essential tremor G31.84 Mild cognitive impairment, s o stated E03.9 Hypothyroidism, unspecified K21.9 Gastro-esophageal reflux dis ease without esophagitis I10 Essential (primary) hyperten dianelys M85.80 Oth disrd of bone density an d structure, unspecified site M15.9 Polyosteoarthritis, unspecif ied F32.89 Other specified depressive e pisodes Office Visit 06/27/2020 1:00p [facility] [place], [place] G31.84 Mild cognitive impairment, s o stated Office Visit 05/26/2020 10:00a [facility] Vieyra M.D. G25.0 Essential tremor G31.84 Mild [...] 11/10/2020 F32.89 Other specified depressive episo bro Vieyra M.D. 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 11/10/2020 M15.9 Polyosteoarthritis, unspecified Yakelin Vieyra M.D. 11/10/2020 R04.0 Epistaxis Yakelin garcia M.D. 11/10/2020 E03.9 Hypothyroidism, unspecified Katya Vieyra M.D. 11/10/2020 K21.9 Gastro-esophageal reflux disease without esophagitis Yakelin Vieyra M.D. 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 06/30/2020 M15.9 Polyosteoarthritis, unspecified aYkelin Vieyra M.D. 06/30/2020 F32.89 Other specified depressive episo bro Yakelin Vieyra M.D. 06/27/2020 G31.84 Mild cognitive impairment, so st ated ALEXANDER Nieves JR 05/26/2020 G25.0 Essential tremor Yakelin quintero M.D. 05/26/2020 G31.84 Mild cognitive impairment, so st ated Yakelin Vieyra M.D. 05/26/2020 M19.90 Unspecified osteoarthritis, unsp ecified site Yakelin Vieyra M.D. 05/26/2020 E03.9 Hypothyroidism, unspecified Katya Vieyra M.D. 05/26/2020 F32.89 Other specified depressive episo bro Yakelin Vieyra M.D. 05/26/2020 K21.9 Gastro-esophageal reflux disease without esophagitis Yakelin Vieyra M.D. 05/26/2020 M85.80 Other specified diso rders of bone density and structure, unspecified site Yakelin Vieyra M.D. 05/26/2020 I10 Essential (primary) hypertension Yakelin Vieyra M.D. Plan of Treatment Future Appointment(s):* 12/09/2020 10:45 am - Yakelin Vieyra M.D. at [facility] 11/10/2020 - Yakelin Vieyra M.D.* I10 [...] Description No Information Available Referrals Refer to Dr Reason for Referral Status Appt Date Jeff Dudley MD CONSULT FOR NASAL LESION Patient Notified 11/11 [facility] [address] [facility] [address] [place] [address] [phone] [facility] CONSULT FOR LT SHOULDER PAIN Sen t [address] [place] [address] [phone] Jacquelyn Mustafa MD CONSULT FOR ER FOLLOWUP OF T RAIZA, THE ER DOCTOR SPOKE WITH DR MUSTAFA REGARDING THIS PT Sent 07/03/2020 [facility] [address] [place] [address] [phone]
--- OUTSIDE RECORDS SUMMARY | 2020-12-25 21:28 | CCD ---
Author Author [facility] Organization [facility] Address Unknown Phone Unavailable Care Team Providers Care Mri Ct Tech Name Role Phone PHONG JOYCE Unavailable Unavailable [place], Lorna METAL PATTERNMAKER APPRENTICE Unavailable Unavailable [place], Lorna METAL PATTERNMAKER APPRENTICE Unavailable Unavailable [place], Lorna METAL PATTERNMAKER APPRENTICE Unavailable Unavailable [place], Lorna METAL PATTERNMAKER APPRENTICE Unavailable Unavailable [place], Lorna METAL PATTERNMAKER APPRENTICE Unavailable Unavailable [place], Lorna METAL PATTERNMAKER APPRENTICE Unavailable Unavailable [place], Lorna METAL PATTERNMAKER APPRENTICE Unavailable Unavailable [place], Lorna METAL PATTERNMAKER APPRENTICE Unavailable Unavailable [place], Lorna METAL PATTERNMAKER APPRENTICE Unavailable Unavailable [place], Lorna METAL PATTERNMAKER APPRENTICE Unavailable Unavailable [place], Lorna METAL PATTERNMAKER APPRENTICE Unavailable Unavailable [place], Lorna METAL PATTERNMAKER APPRENTICE Unavailable Unavailable [place], Lorna METAL PATTERNMAKER APPRENTICE Unavailable Unavailable [place], Lorna METAL PATTERNMAKER APPRENTICE Unavailable Unavailable [place], Lorna METAL PATTERNMAKER APPRENTICE Unavailable Unavailable [place], Lorna METAL PATTERNMAKER APPRENTICE Unavailable Unavailable [place], Lorna METAL PATTERNMAKER APPRENTICE Unavailable Unavailable [place], Lorna METAL PATTERNMAKER APPRENTICE Unavailable Unavailable [place], Lorna METAL PATTERNMAKER APPRENTICE Unavailable Unavailable [place], Lorna METAL PATTERNMAKER APPRENTICE Unavailable Unavailable [place], Lorna METAL PATTERNMAKER APPRENTICE Unavailable Unavailable [place], Lorna METAL PATTERNMAKER APPRENTICE Unavailable Unavailable [place], Lorna METAL PATTERNMAKER APPRENTICE Unavailable Unavailable [place], Lorna METAL PATTERNMAKER APPRENTICE Unavailable Unavailable [place], Lorna METAL PATTERNMAKER APPRENTICE Unavailable Unavailable [place], Lorna METAL PATTERNMAKER APPRENTICE Unavailable Unavailable [place], Lorna METAL PATTERNMAKER APPRENTICE Unavailable Unavailable AzaliaJuan Ramon garcia MD Unavailable Unavailable Juan Ramon Vieyra MD Unavailable Unavailable Juan Ramon Vieyra MD Unavailable Unavailable Juan Ramon Vieyra MD Unavailable Unavailable AzaliaJuan Ramon garcia MD Unavailable Unavailable Juan Ramon Vieyra MD Unavailable Unavailable Juan Ramon Vieyra MD Unavailable Unavailable Juan Ramon Vieyra MD Unavailable Unavailable Juan Ramon Vieyra MD Unavailable Unavailable Juan Ramon Vieyra MD Unavailable Unavailable Juan Ramon Vieyra MD Unavailable Unavailable Juan Ramon Vieyra MD Unavailable Unavailable Juan Ramon Vieyra MD Unavailable Unavailable Juan Ramon Vieyra MD Unavailable Unavailable Juan Ramon Vieyra MD Unavailable Unavailable Juan Ramon Vieyra MD Unavailable Unavailable Juan Ramon Vieyra MD Unavailable Unavailable Juan Ramon Vieyra MD Unavailable Unavailable Juan Ramon Vieyra MD Unavailable Unavailable Juan Ramon Vieyra MD Unavailable Unavailable Juan Ramon Vieyra MD Unavailable Unavailable Juan Ramon Vieyra MD Unavailable Unavailable Juan Raomn Vieyra MD Unavailable Unavailable Juan Ramon Vieyra MD Unavailable Unavailable Juan Ramon Vieyra MD Unavailable Unavailable Juan Ramon Vieyra MD Unavailable Unavailable Juan Ramon Vieyra MD Unavailable Unavailable Juan Ramon Vieyra MD Unavailable Unavailable Juan Ramon Vieyra MD Unavailable Unavailable Juan Ramon Vieyra MD Unavailable Unavailable Juan Ramon Vieyra MD Unavailable Unavailable Juan Ramon Vieyra MD Unavailable Unavailable Juan Ramon Vieyra MD Unavailable Unavailable Juan Ramon Vieyra MD Unavailable Unavailable Juan Ramon Vieyra MD Unavailable Unavailable Juan Ramon Vieyra MD Unavailable Unavailable Juan Ramon Vieyra MD Unavailable Unavailable Juan Ramon Vieyra MD Unavailable Unavailable Juan Ramon Vieyra MD Unavailable Unavailable Juan Ramon Vieyra MD Unavailable Unavailable Juan Ramon Vieyra MD Unavailable Unavailable Juan Ramon Vieyra MD Unavailable Unavailable Juan Ramon Vieyra MD Unavailable Unavailable Juan Ramon Vieyra MD Unavailable Unavailable AzaliaJuan Ramon aggarwal MD Unavailable Unavailable AzaliaJuan Ramon aggarwal MD Unavailable Unavailable AzaliaJuan Ramon aggarwal MD Unavailable Unavailable AzaliaJuan Ramon aggarwal MD Unavailable Unavailable Azalia M Yakelin DEE Unavailable Unavailable AzaliaJuan Ramon aggarwal MD Unavailable Unavailable AzaliaJuan Ramon aggarwal MD Unavailable Unavailable Juan Ramon Vieyra MD Unavailable Unavailable Juan Ramon Vieyra MD Unavailable Unavailable Juan Ramon Vieyra MD Unavailable Unavailable AzaliaJuan Ramon MD Unavailable Unavailable Juan Ramon Vieyra MD Unavailable Unavailable Juan Ramon Vieyra MD Unavailable Unavailable Juan Ramon Vieyra MD Unavailable Unavailable Juan Ramon Vieyra MD Unavailable Unavailable AzaliaJuan Ramon aggarwal MD Unavailable Unavailable AzaliaJuan Ramon aggarwal MD Unavailable Unavailable Juan Ramon Vieyra MD Unavailable Unavailable Juan Ramon Vieyra MD Unavailable Unavailable Juan Ramon Vieyra MD Unavailable Unavailable Juan Ramon Vieyra MD Unavailable Unavailable Juan Ramon Vieyra MD Unavailable Unavailable Juan Ramon Vieyra MD Unavailable Unavailable Juan Ramon Vieyra MD Unavailable Unavailable Juan Ramon Vieyra MD Unavailable Unavailable Juan Ramon Vieyra MD Unavailable Unavailable Juan Ramon Vieyra MD Unavailable Unavailable Juan Ramon Vieyra MD Unavailable Unavailable Juan Ramon Vieyra MD Unavailable Unavailable Juan Ramon Vieyra MD Unavailable Unavailable Juan Ramon Vieyra MD Unavailable Unavailable Juan Ramon Vieyra MD Unavailable Unavailable Juan Ramon Vieyra MD Unavailable Unavailable Juan Ramon Vieyra MD Unavailable Unavailable PICKERAL JR J JOSHUA PA-C Unavailable Unavailable PICKERAL JR J JOSHUA PA-C Unavailable Unavailable PICKERAL JR, J JOSHUA PA-C Unavailable Unavailable PICKERAL JR, J JOSHUA PA-C Unavailable Unavailable PICKERAL JR, J JOSHUA PA-C Unavailable Unavailable PICKERAL JR, J JOSHUA PA-C Unavailable Unavailable PICKERAL JR, J JOSHUA PA-C Unavailable Unavailable PICKERAL JR, J JOSHUA PA-C Unavailable Unavailable PICKERAL JR, J JOSHUA PA-C Unavailable Unavailable PICKERAL JR, J JOSHUA PA-C Unavailable Unavailable PICKERAL JR, J JOSHUA PA-C Unavailable Unavailable PICKERAL JR, J JOSHUA PA-C Unavailable Unavailable PICKERAL JR, J JOSHUA PA-C Unavailable Unavailable PICKERAL JR, J JOSHUA PA-C Unavailable Unavailable PICKERAL JR, J JOSHUA PA-C Unavailable Unavailable PICKERAL JR, J JOSHUA PA-C Unavailable Unavailable PICKERAL JR, J JOSHUA PA-C Unavailable Unavailable PICKERAL JR, J JOSHUA PA-C Unavailable Unavailable PICKERAL JR, J JOSHUA PA-C Unavailable Unavailable PICKERAL JR, J JOSHUA PA-C Unavailable Unavailable PICKERAL JR, J JOSHUA PA-C Unavailable Unavailable Abriss, B Tyrell DEE Unavailable Unavailable Abriss, Maria Isabel Santillan MD Unavailable Unavailable Abriss, B Tyrell DEE Unavailable Unavailable Abriss, B Tyrell DEE Unavailable Unavailable Abriss, B Tyrell DEE Unavailable Unavailable Abriss, B Tyrell DEE Unavailable Unavailable Abriss, B Tyrell DEE Unavailable Unavailable Abriss, B Tyrell DEE Unavailable Unavailable Abriss, B Tyrell DEE Unavailable Unavailable Abriss, B Tyrell DEE Unavailable Unavailable Abriss, B Tyrell DEE Unavailable Unavailable Abriss, B Tyrell DEE Unavailable Unavailable Abriss, B Tyrell DEE Unavailable Unavailable Abriss, B Tyrell DEE Unavailable Unavailable Abriss, B Tyrell DEE Unavailable Unavailable Abriss, B Tyrell DEE Unavailable Unavailable Abriss, B Tyrell DEE Unavailable Unavailable Abriss, B Tyrell DEE Unavailable Unavailable Dille, E Deanna DDS Unavailable Unavailable Dille, E Deanna DDS Unavailable Unavailable Dille, E Deanna DDS Unavailable Unavailable Dille, E Edanna DDS Unavailable Unavailable Leigh Ann BRITOEW DO Unavailable [phone] Leigh Ann BRITOEW DO Unavailable [phone] Leigh Ann BRITOEW DO Unavailable [phone] Leigh Ann BRITOEW DO Unavailable [phone] Leigh Ann BRITOEW DO Unavailable [phone] Leigh Ann BRITO STEVEN DO Unavailable [phone] Leigh Ann BRITO STEVEN DO Unavailable [phone] Leigh Ann BRITO STEVEN DO Unavailable [phone] Leigh Ann BRITOEW DO Unavailable [phone] Leigh Ann BRITOEW DO Unavailable [phone] Leigh Ann BRITO STEVEN DO Unavailable [phone] Leigh Ann BRITO STEVEN DO Unavailable [phone] Leigh Ann BRITO STEVEN DO Unavailable [phone] Leigh Ann BRITO DO Unavailable [phone] Leigh Ann BRITO DO Unavailable [phone] Leigh Ann BRITO DO Unavailable [phone] Leigh Ann BRITO DO Unavailable [phone] Leigh Ann BRITO DO Unavailable [phone] Leigh Ann BRITO DO Unavailable [phone] Leigh Ann BRITO DO Unavailable [phone] Leigh Ann BRITO DO Unavailable [phone] Jeff Dudley MD Unavailable Unavailable [place], Jeff DEE Unavailable Unavailable [place], Jeff DEE Unavailable Unavailable [place], Jeff DEE Unavailable Unavailable [place], Jeff DEE Unavailable Unavailable [place], Jeff DEE Unavailable Unavailable [place], Jeff DEE Unavailable Unavailable [place], Jeff DEE Unavailable Unavailable [place], Jeff DEE Unavailable Unavailable [place], Jeff MD Unavailable Unavailable [place], Jeff MD Unavailable Unavailable [place], Jeff MD Unavailable Unavailable [place], Jeff MD Unavailable Unavailable [place], Jeff MD Unavailable Unavailable [place], Jeff MD Unavailable Unavailable [place], Jeff MD Unavailable Unavailable [place], Jeff MD Unavailable Unavailable [place], Jeff MD Unavailable Unavailable [place], Jeff MD Unavailable Unavailable [place], Jeff MD Unavailable Unavailable [place], Jeff MD Unavailable Unavailable [place], Jeff MD Unavailable Unavailable [place], Jeff MD Unavailable Unavailable [place], Jeff MD Unavailable Unavailable [place], Jeff MD Unavailable Unavailable [place], Jeff MD Unavailable Unavailable [place], Jeff MD Unavailable Unavailable [place], Jeff MD Unavailable Unavailable RAMOS, M PATRICIA PA Unavailable Unavailable RAMOS, M PATRICIA PA Unavailable Unavailable RAMOS, M PATRICIA PA Unavailable Unavailable RAMOS, M PATRICIA PA Unavailable Unavailable RAMOS, M PATRICIA PA Unavailable Unavailable RAMOS, M PATRICIA PA Unavailable Unavailable RAMOS, M PATRICIA PA Unavailable Unavailable RAMOS, M PATRICIA PA Unavailable Unavailable RAMOS, M PATRICIA PA Unavailable Unavailable RAMOS, M PATRICIA PA Unavailable Unavailable RAMOS, M PATRICIA PA Unavailable Unavailable RAMOS, M PATRICIA PA Unavailable Unavailable RAMOS, M PATRICIA PA Unavailable Unavailable RAMOS, M PATRICIA PA Unavailable Unavailable RAMOS, M PATRICIA PA Unavailable Unavailable RAMOS, M PATRICIA PA Unavailable Unavailable RAMOS, M PATRICIA PA Unavailable Unavailable RAMOS, M PATRICIA PA Unavailable Unavailable RAMOS, M PATRICIA PA Unavailable Unavailable RAMOS, M PATRICIA PA Unavailable Unavailable RAMOS, M PATRICIA PA Unavailable Unavailable RAMOS, M PATRICIA PA Unavailable Unavailable RAMOS, M PATRICIA PA Unavailable Unavailable RAMOS, M PATRICIA PA Unavailable Unavailable RAMOS, M PATRICIA PA Unavailable Unavailable RAMOS, M PATRICIA PA Unavailable Unavailable RAMOS, M PATRICIA PA Unavailable Unavailable RAMOS, M PATRICIA PA Unavailable Unavailable RAMOS, M PATRICIA PA Unavailable Unavailable RAMOS, M PATRICIA PA Unavailable Unavailable RAMOS, M PATRICIA PA Unavailable Unavailable RAMOS, M PATRICIA PA Unavailable Unavailable RAMOS, M PATRICIA PA Unavailable Unavailable Juan Mustafa MD Unavailable Unavailable Juan Mustafa MD Unavailable Unavailable Juan Mustafa MD Unavailable Unavailable Juan Mustafa MD Unavailable Unavailable Juan Mustaaf MD Unavailable Unavailable Juan Mustafa MD Unavailable Unavailable Juan Mustafa MD Unavailable Unavailable Juan Mustafa MD Unavailable Unavailable Juan Mustafa MD Unavailable Unavailable Juan Mustafa MD Unavailable Unavailable Juan Mustafa MD Unavailable Unavailable Juan Mustafa MD Unavailable Unavailable Juan Mustafa MD Unavailable Unavailable Ramsey O Jacquelyn DEE Unavailable Unavailable Ramsey O Jacquelyn DEE Unavailable Unavailable Juan Mustafa MD Unavailable Unavailable Ramsey O Jacquelyn DEE Unavailable Unavailable Juan Mustafa MD Unavailable Unavailable Ramsey O Jacquelyn DEE Unavailable Unavailable Ramsey O Jacquelyn DEE Unavailable Unavailable Ramsey O [place] Unavailable Unavailable Ramsey O Jacquelyn DEE Unavailable Unavailable Ramsey O Jacquelyn DEE Unavailable Unavailable Ramsey O Jacquelyn DEE Unavailable Unavailable Ramsey O Jacquelyn DEE Unavailable Unavailable Ramsey O Jacquelyn DEE Unavailable Unavailable Ramsey O [place] Unavailable Unavailable Ramsey O Jacquelyn DEE Unavailable Unavailable Ramsey O Jacquelyn DEE Unavailable Unavailable RamseyJuan MD Unavailable Unavailable Juan Mustafa MD Unavailable Unavailable Juan Mustafa MD Unavailable Unavailable Juan Mustafa MD Unavailable Unavailable Juan Mustafa MD Unavailable Unavailable Juan Mustafa MD Unavailable Unavailable Juan Mustafa MD Unavailable Unavailable Juan Mustafa MD Unavailable Unavailable Juan Mustafa MD Unavailable Unavailable Juan Mustafa MD Unavailable Unavailable Juan Mustafa MD Unavailable Unavailable Juan Mustafa MD Unavailable Unavailable Juan Mustafa MD Unavailable Unavailable Juan Mustafa MD Unavailable Unavailable Juan Mustafa MD Unavailable Unavailable Juan Mustafa MD Unavailable Unavailable Juan Mustafa MD Unavailable Unavailable Juan Mustafa MD Unavailable Unavailable Juan Mustafa MD Unavailable Unavailable Juan Mustafa MD Unavailable Unavailable Juan Mustafa MD Unavailable Unavailable Juan Mustafa MD Unavailable Unavailable Juan Mustafa MD Unavailable Unavailable Juan Mustafa MD Unavailable Unavailable Juan Mustafa MD Unavailable Unavailable Juan Mustafa MD Unavailable Unavailable Juan Mustafa MD Unavailable Unavailable Juan Mustafa MD Unavailable Unavailable Juan Mustafa MD Unavailable Unavailable Juan Mustafa MD Unavailable Unavailable Juan Mustafa MD Unavailable Unavailable Juan Mustafa MD Unavailable Unavailable Juan Mustafa MD Unavailable Unavailable Juan Mustafa MD Unavailable Unavailable Juan Mustafa MD Unavailable Unavailable Juan Mustafa MD Unavailable Unavailable Juan Mustafa MD Unavailable Unavailable Juan Mustafa MD Unavailable Unavailable Juan Mustafa MD Unavailable Unavailable Juan Mustafa MD Unavailable Unavailable Juan Mustafa MD Unavailable Unavailable Juan Mustafa MD Unavailable Unavailable Juan Mustafa MD Unavailable Unavailable Juan Mustafa MD Unavailable Unavailable Juan Mustafa MD Unavailable Unavailable Juan Mustafa MD Unavailable Unavailable Juan Mustafa MD Unavailable Unavailable Re-disclosure Warning The records that you are about to access may contain information from federally-assisted alcohol or drug abuse programs. If such information is present, then the following federally mandated warning applies: This information has been disclosed to you from records protected by federal confidentiality rules (42 CFR part 2). The federal rules prohibit you from making any further disclosure of this information unless further disclosure is expressly permitted by the written consent of the person to whom it pertains or as otherwise permitted by 42 CFR part 2. A general authorization for the release of medical or other information is NOT sufficient for this purpose. The Federal rules restrict any use of the information to criminally investigate or prosecute any alcohol or drug abuse patient.The records that you are about to access may contain highly sensitive health information, the redisclosure of which is protected by Article 27-F of the [facility] Public Health law. If you continue you may have access to information: Regarding HIV / AIDS; Provided by facilities licensed or operated by the [facility] Office of Mental Health; or Provided by the [facility] Office for People With Developmental Disabilities. If such information is present, then the following [facility] mandated warning applies: This information has been disclosed to you from confidential records which are protected by state law. State law prohibits you from making any further disclosure of this information without the specific written consent of the person to whom it pertains, or as otherwise permitted by law. Any unauthorized further disclosure in violation of state law may result in a fine or alf sentence or both. A general authorization for the release of medical or other information is NOT sufficient authorization for further disc losure. Allergies and Adverse Reactions Type Description Substance Reaction Status Data Source(s ) Allergy to substance No Known Allergies No known allergies (situation ) LUCIA (Ian Rajan MD [facility]) Family History Family Member Name Family Member Gender Family Member Status Date o f Status Description Data Source(s) Unknown Male Problem MED[facility] ([facility] () Unknown Unknown Problem [facility] ([facility]) Unknown Male Problem [facility] ([facility]) Unknown Male Problem [facility] ([facility]) Unknown Female Problem MED[facility] ([facility]) Encounters Encounter Providers Location Date Indications Data Source(s ) Outpatient Attender: Yakelin Russ 09:45:00 AM EST MEDENT ([facility] ) Office Visit Attender: Jeff Lombardo/Luis Enrique/Hood/Reind l 11/20/2020 08:20:00 AM EST [facility] ([facility]) Outpatient Attender: Yakelin Russ 09:30:00 AM EST [facility] ([facility] ) Outpatient Attender: Tyrell Lombardo/Luis Enrique/Hood/Re indl 11/10/2020 12:45:00 PM EST [facility] ([facility]) Outpatient Attender: Yakelin Russ 09:00:00 AM EST [facility] ([facility] ) Outpatient Attender: Jacquelyn Mustafa MD [facility] office [facility] 11/03/2020 12:15:00 PM EST [facility] ([facility]) Outpatient Attender: Lorna Russ 12:40:00 PM EST [facility] ([facility] ) Outpatient Attender: PATRICIA Lombardo/Luis Enrique/Hood/Rein dl 09/11/2020 08:30:00 AM EST [facility] ([facility]) Outpatient Attender: Yakelin Russ 10:30:00 AM EST [facility] ([facility] ) Outpatient Att[facility]: [facility] 09/04/2020 11:48:00 AM EDT [facility] Outpatient Attender: [facility] 08/18/2020 04:02:03 PM EDT [facility] Outpatient Attender: [facility] 07/21/2020 04:01:00 PM EDT [facility] Outpatient Attender: Yakelin Russ 01:30:00 PM EDT [facility] ([facility] ) Office Visit Attender: Jacquelyn Mustafa MD Main office - [facility] 07/07/2020 09:00:00 AM EDT [facility] ([facility] 04:28:02 PM EDT [facility] 07/03/2020 03:48:00 PM EDT [facility] 07/03/2020 02:34:00 PM EDT [facility] 07/03/2020 02:33:01 PM EDT [facility] Outpatient Attender: Yakelin Russ 10:45:00 AM EDT [facility] ([facility] ) Outpatient Attender: JOSHUA Russ 0 06/27/2020 01:00:00 PM EDT [facility] ([facility] ) [facility] 06/12/2020 10:19:00 AM EDT [facility] Outpatient Attender: [facility] 06/06/2020 08:06:01 AM EDT [facility] Outpatient Attender: Deanna Murcia DDS [facility] 06/05/2020 11:45:04 A M EDT [facility] Outpatient Attender: Yakelin Russ 10:00:00 AM EDT [facility] ([facility] ) Outpatient Attender: Deanna Murcia DDS [facility] 05/13/2020 03:08:01 P M EDT [facility] Outpatient Attender: Deanna Murcia DDS [facility] 05/08/2020 12:03:00 P M EDT [facility]: [facility] 05/08/2020 11:54:01 A M EDT [facility]: [facility] 05/08/2020 11:54:00 A M EDT [facility]: [facility] 05/08/2020 09:58:02 A M EDT [facility] Outpatient Attender: [facility]anna Murcia DDS [facility] 05/08[facility] 09[facility]57[facility] Attender: Deanna Murcia DDS [facility] 05/08/2020 09:56:01 A EDT [facility] Outpatient Attender: Deanna Murcia DDS [facility] 05/08/2020 08:48:01 A M T [facility] Outpatient Attender: Yakelin Russ 01:00:00 PM EDT [facility] ([facility] ) Outpatient Attender: Lorna Russ 11:20:00 AM EDT [facility] ([facility] ) Outpatient Attender: Deanna Murcia [facility] 12/28/2019 02:08:01 P [facility] Outpatient Attender: Yakelin Russ 01:00:00 PM EST [facility] ([facility] ) [facility]: [facility] 11/30/2019 12:43:00 P [facility] Outpatient Attender: Deanna Murcia NANDO [facility] 11/30/2019 11:46:03 A [facility] 11/30/2019 11:34:01 A [facility] Outpatient Attender: Deanna Murcia [facility] 11/30/2019 11:33:03 A [facility] Outpatient Attender: Deanna Murcia [facility]ANDO [facility] 11/30/2019 10:46:01 A [facility] Outpatient Attender: Deanna Murcia NANDO [facility] 11/30/2019 10:44:01 A [facility] Outpatient Attender: Deanna Murcia LISSShala [facility] 11/30/2019 09:40:00 A [facility] Outpatient<td ID="encounterTypeDescripti onID0">1 Year Follow-Up</td><td>Steven Brito DO</td><td>Ian Mora MD [facility]</td><td>11/08/2019</td><td><content ID="encounterDiagnosisID0-0">Macular Degeneration Nonexudative Bilateral Early Dry Stage</content>, <content ID="encounterDiagnosisID0-1">Posterior Vitreous Detachment Both Eyes</content>, <content ID="encounterDiagnosisID0-2">Dry Eye Syndrome Both Eyes</content>, <content ID="encounterDiagnosisID0-3">Pseudophakia</content>, <content ID="encounterDiagnosisID0-4">Conjunctiva Conjunctivochalasis</content></td> Attender: STEVEN Smith MD [facility] 11/08/2019 01:20:00 PM EST - 11/08/2019 02:39:00 PM EST Conjunctiva ConjunctivochalasisPseudophakiaPosterior Vitreous Detachment Both EyesMacular Degeneration Nonexudative Bilateral Early Dry StageDry Eye Syndrome Both Eyes LUCIA (Ian Rajan MD [facility]) Conjunctiva Conjunctivochalasis Pseudophakia Posterior Vitreous Detachment Both Eyes Macular Degeneration Nonexudative Bilate ral Early Dry Stage Dry Eye Syndrome Both Eyes Immunizations Vaccine Date Status Description Data Source(s) Influenza, injectable, MDCK, preservative free, stephanie valent 07/21/2020 01:30:00 PM EDT completed [facility] Medications Medication Brand Name Start Date Product Form Dose Route Admi nistrative Instructions Pharmacy Instructions Status Indications Reaction Description Data Source(s) 8 HR Acetaminophen 650 MG Extended Release Oral Tablet [Tylenol] Tylenol 8 Hour Arthritis Pain 12/09/2020 12:00:00 AM EST active [facility] ([facility]) gabapentin 400 MG Oral Capsule Gabapentin 12/09/2020 12:00:00 AM EST ORAL active [facility] ([facility] Losartan Potassium 50 MG Oral Tablet Losartan Potassium 12/2020 12:00:00 AM EST ORAL active [facility] ([facility]) Sinus Rinse Bottle Kit 12/05/2020 12:00:00 AM EST active [facility] ([facility] ) Bacitracin 0.5 UNT/MG / Polymyxin B 10 UNT/MG Topical Ointment [Polysporin] Polysporin 12/05/2020 12:00:00 AM EST active MEDENT ([facility], ) Sodium Chloride 0.111 MEQ/ML Nasal Solution Saline Mist Spra y 11/11/2020 12:00:00 AM EST active M EDENT ([facility], ) Amoxicillin 875 MG / Clavulanate 125 MG Oral Tablet Am oxicillin/Clavulanate Potassium 11/05/2020 12:00:00 AM EST completed MEDENT ([facility]) Aspirin 81 MG Delayed Release Oral Tablet Aspirin 81 2019 12:00:00 AM EST ORAL active MED[facility] ( [facility]) Super B Complex/Vitamin C 09/24/2020 12:00:00 AM EST ORA L completed [facility] ([facility] ) Cholecalciferol 2000 UNT Oral Tablet Vitamin D 09/15/2020 12:00:00 A M EST ORAL active MEDENT ([facility]) clopidogrel 75 MG Oral Tablet Clopidogrel Bisulfate 07/25/2020 1 2:00:00 AM EDT active MEDENT ( [facility], ) Administration Of Flu Vaccine 07/21/2020 12:00:00 AM EDT completed [facility] ([facility]) Medication administered onsite Alendronic acid 70 MG Oral Tablet Alendronate Sodium 04/18/2020 12:00:00 AM EDT active MEDENT ( [facility]) duloxetine 30 MG Delayed Release Oral Capsule Duloxetine HCL 03/21/2020 12:00:00 AM EDT ORAL active MEDENT ([facility]) Bupropion Hydrochloride 75 MG Oral Tablet Bupropion HCL 12/27/2019 12:00:00 AM EST ORAL completed MEDENT ([facility]) loteprednol etabonate 5 MG/ML Ophthalmic Suspension [Lotemax] Lotemax 0.5% Ophthalmic Suspension Lotemax 0.5% Ophthalmic Suspension 11/08/2019 12:00:00 AM EST active lotepred nol etabonate 5 MG/ML Ophthalmic Suspension [Lotemax] LUCIA (Ian Rajan MD [facility]) prednisolone acetate 10 MG/ML Ophthalmic Suspension [Pred Forte] Pred Forte 1% Ophthalmic Suspension Pred Forte 1% Ophthalmic Suspension 01/27/2017 12:00:0 0 AM EDT aborted predniso lone acetate 10 MG/ML Ophthalmic Suspension [Pred Forte] LUCIA (Ian Rajan MD [facility]) Insurance Providers Payer name Policy type / Coverage type Policy ID Covered libertarian ID Covered libertarian's relationship to rossi Policy Rossi Plan Information EMEDNY [id number] SP [id number] MEDICARE [id number] SP [id number] G[place] O [id number] S [id number] MEDICARE C [id number] S [id number] MEDICAID M [id number] S [id number] Medicare P [id number] S [id number] Medicaid S [id number] S [id number] Medicare Part B [facility] [place] [facility] Other 0 Se lf 0 MEDICAID [id number] SP [id number] First United French Medigap Part B [id number] Self [id number] Medicaid Medigap Part B [id number] Self [id number] 49U Globe Life Ins Medigap Part B [id number] Self [id number] Medicare Natl Govt Servic Medicare Primary [id number] Self [id number] First United French Medigap Part B [id number] Self [id number] Medicaid Medigap Part B [id number] Self [id number] 49U Globe Life Ins Medigap Part B [id number] Self [id number] Medicare Natl Govt Servic Medicare Primary [id number] Self [id number] G[place] [id number] SP [id number] First United French Medigap Part B [id number] Self [id number] Medicaid Medigap Part B [id number] Self [id number] 49U Globe Life Ins Medigap Part B [id number] Self [id number] Medicare Natl Govt Servic Medicare Primary [id number] Self [id number] First United French Medigap Part B [id number] Self [id number] Medicaid Medigap Part B [id number] Self [id number] 49U Globe Life Ins Medigap Part B [id number] Self [id number] Medicare Natl Govt Servic Medicare Primary [id number] Self [id number] First United French Medigap Part B [id number] Self [id number] Medicaid Medigap Part B [id number] Self [id number] 49U Globe Life Ins Medigap Part B [id number] Self [id number] Medicare Natl Govt Servic Medicare Primary [id number] Self [id number] First United French Medigap Part B [id number] Self [id number] Medicaid Medigap Part B [id number] Self [id number] 49U Globe Life Ins Medigap Part B [id number] Self [id number] Medicare Natl Govt Servic Medicare Primary [id number] Self [id number] Medicare P [id number] S [id number] GLO[place] LIFE INS [place] [id number] SP [id number] First United French Medigap Part B [id number] Self [id number] Medicaid Medigap Part B [id number] Self [id number] 49U Globe Life Ins Medigap Part B [id number] Self [id number] Medicare Natl Govt Servic Medicare Primary [id number] Self [id number] FIRST UNITED [place] [id number] SP [id number] [facility] [id number] SP [id number] [facility] GE PART A [id number] SP [id number] First United French Medigap Part B [id number] Self [id number] Medicaid Medigap Part B [id number] Self [id number] 49U Globe Life Ins Medigap Part B [id number] Self [id number] Medicare Natl Govt Servic Medicare Primary [id number] Self [id number] First United French Medigap Part B [id number] Self [id number] Medicaid Medigap Part B [id number] Self [id number] 49U Globe Life Ins Medigap Part B [id number] Self [id number] Medicare Natl Govt Servic Medicare Primary [id number] Self [id number] First United French Medigap Part B [id number] Self [id number] Medicaid Medigap Part B [id number] Self [id number] 49U Globe Life Ins Medigap Part B [id number] Self [id number] Medicare Natl Govt Servic Medicare Primary [id number] Self [id number] First United French Medigap Part B [id number] Self [id number] Medicaid Medigap Part B [id number] Self [id number] 49U Globe Life Ins Medigap Part B [id number] Self [id number] Medicare Natl Govt Servic Medicare Primary [id number] Self [id number] MEDICAID [id number] SP [id number] First United French Medigap Part B [id number] Self [id number] Medicaid Medigap Part B [id number] Self [id number] 49U Globe Life Ins Medigap Part B [id number] Self [id number] Medicare Natl Govt Servic Medicare Primary [id number] Self [id number] First United French Medigap Part B [id number] Self [id number] Medicaid Medigap Part B [id number] Self [id number] 49U Globe Life Ins Medigap Part B [id number] Self [id number] Medicare Natl Govt Servic Medicare Primary [id number] Self [id number] First United French Medigap Part B [id number] Self [id number] Medicaid Medigap Part B [id number] Self [id number] 49U Globe Life Ins Medigap Part B [id number] Self [id number] Medicare Natl Govt Servic Medicare Primary [id number] Self [id number] Medicare P [id number] S [id number] [id number] Medicare P [id number] S [id number] D Medicaid [facility]SC Healthcare S D [id number] SELF [id number] Medicare C [id number] SELF [id number] K27 DME Jurisdiction A [facility] C [id number] SELF [id number] Medicaid CSC Healthcare S D [id number] SELF [id number] Medicare C [id number] SELF [id number] [id number] First United French Medigap Part B [id number] Self [id number] Medicaid Medigap Part B [id number] Self [id number] 49U Globe Life Ins Medigap Part B [id number] Self [id number] Medicare Natl Govt Servic Medicare Primary [id number] Self [id number] MEDICARE [id number] SP [id number] D French Progressive (pr) Medigap Part B [id number] Self [id number] First United French(pr) Medigap Part B [id number] Self [id number] First United French(pr) Medigap Part B [id number] Self [id number] Medicare Dme Supplies Medigap Part B [id number] Self [id number] Medicaid [place] Medigap Part B [id number] Self [id number] Globe Life Ins (pr) Medigap Part B [id number] Self [id number] [place] [id number] Self [id number] Medicare Dme Medigap Part B [id number] Self [id number] Medicaid Medicaid [id number] Self [id number] Global Insurance Commercial [id number] Self [id number] Medicare Medicare Primary [id number] Self [id number] First United French Medigap Part B [id number] Self [id number] Medicaid Medigap Part B [id number] Self FY384 49U Globe Life Ins Medigap Part B [id number] Self [id number] Medicare Natl Govt Servic Medicare Primary [id number] Self [id number] Medicaid Medicaid [id number] Self [id number] Global Insurance Commercial [id number] Self [id number] Medicare Medicare Primary [id number] Self [id number] First United French Medigap Part B [id number] Self [id number] Medicaid Medigap Part B [id number] Self [id number] 49U Globe Life Ins Medigap Part B [id number] Self [id number] Medicare Natl Govt Servic Medicare Primary [id number] Self [id number] First United French Medigap Part B [id number] Self [id number] Medicaid Medigap Part B [id number] Self [id number] 49U Globe Life Ins Medigap Part B [id number] Self [id number] Medicare Natl Govt Servic Medicare Primary [id number] Self [id number] FIRST UNITED [place] O [id number] S [id number] MEDICARE C [id number] S [id number] First United French Medigap Part B [id number] Self [id number] Medicaid Medigap Part B [id number] Self FY384 49U Globe Life Ins Medigap Part B [id number] Self [id number] Medicare Natl Govt Servic Medicare Primary [id number] Self [id number] First United French Medigap Part B [id number] Self [id number] Medicaid Medigap Part B [id number] Self FY384 49U Globe Life Ins Medigap Part B [id number] Self [id number] Medicare Natl Govt Servic Medicare Primary [id number] Self [id number] Medicaid Medicaid [id number] Self [id number] Global Insurance Commercial [id number] Self [id number] Medicare Medicare Primary [id number] Self [id number] First United French Medigap Part B [id number] Self [id number] Medicaid Medigap Part B [id number] Self FY384 49U Globe Life Ins Medigap Part B [id number] Self [id number] Medicare Natl Govt Servic Medicare Primary [id number] Self [id number] Medicaid Medicaid [id number] Self [id number] Global Insurance Commercial [id number] Self [id number] Medicare Medicare Primary [id number] Self [id number] First United French Medigap Part B [id number] Self [id number] Medicaid Medigap Part B [id number] Self [id number] 49U Globe Life Ins Medigap Part B [id number] Self [id number] Medicare Natl Govt Servic Medicare Primary [id number] Self [id number] First United French Medigap Part B [id number] Self [id number] Medicaid Medigap Part B [id number] Self FY384 49U Globe Life Ins Medigap Part B [id number] Self [id number] Medicare Natl Govt Servic Medicare Primary [id number] Self [id number] First United French Medigap Part B [id number] Self [id number] Medicaid Medigap Part B [id number] Self [id number] 49U Globe Life Ins Medigap Part B [id number] Self [id number] Medicare Natl Govt Servic Medicare Primary [id number] Self [id number] French Progressive (pr) Medigap Part B [id number] Self [id number] First United French(pr) Medigap Part B [id number] Self [id number] First United French(pr) Medigap Part B [id number] Self [id number] Medicare Dme Supplies Medigap Part B [id number] Self [id number] Medicaid [place] Medigap Part B [id number] Self FY3 [id number] [employer] Life Ins (pr) Medigap Part B [id number] Self [id number] [place] Primary [id number] Self [id number] First United French Medigap Part B [id number] Self [id number] Medicaid Medigap Part B [id number] Self [id number] 49U Globe Life Ins Medigap Part B [id number] Self [id number] Medicare Natl Govt Servic Medicare Primary [id number] Self [id number] French Progressive (pr) Medigap Part B [id number] Self [id number] First United French(pr) Medigap Part B [id number] Self [id number] First United French(pr) Medigap Part B [id number] Self [id number] Medicare Dme Supplies Medigap Part B [id number] Self [id number] [place] Medigap Part B [id number] Self FY3 [id number] [employer] Life Ins (pr) Medigap Part B [id number] Self [id number] [place] Primary [id number] Self [id number] FIRST UNITED [place] [id number] SP [id number] MEDICARE [id number] SP [id number] First United French Medigap Part B [id number] Self [id number] Medicaid Medigap Part B [id number] Self [id number] 49U Globe Life Ins Medigap Part B [id number] Self [id number] Medicare Natl Govt Servic Medicare Primary [id number] Self [id number] Medicare P UNAVAILABLE S UNAVAILA BLE Medicaid S [id number] S [id number] First United French Medigap Part B [id number] Self [id number] Medicaid Medigap Part B [id number] Self [id number] 49U Globe Life Ins Medigap Part B [id number] Self [id number] Medicare Natl Govt Servic Medicare Primary [id number] Self [id number] Medicaid Medicaid [id number] Self [id number] Medicare Medicare Primary [id number] Self [id number] First United French Medigap Part B [id number] Self [id number] Medicaid Medigap Part B [id number] Self [id number] 49U Globe Life Ins Medigap Part B [id number] Self [id number] Medicare Natl Govt Servic Medicare Primary [id number] Self [id number] French Progressive (pr) Medigap Part B [id number] Self [id number] First United French(pr) Medigap Part B [id number] Self [id number] First United French(pr) Medigap Part B [id number] Self [id number] Medicare Dme Supplies Medigap Part B [id number] Self [id number] Medicaid [place] Medigap Part B [id number] Self FY3 [id number] [employer] Life Ins (pr) Medigap Part B [id number] Self [id number] Medicare [facility] Medicare Primary [id number] Self [id number] French Progressive (pr) Medigap Part B [id number] Self [id number] First United French(pr) Medigap Part B [id number] Self [id number] First United French(pr) Medigap Part B [id number] Self [id number] Medicare Dme Supplies Medigap Part B [id number] Self [id number] [place] Medigap Part B [id number] Self FY3 [id number] [employer] [place] Medigap Part B [id number] Self [id number] Medicare [facility] Medicare Primary [id number] Self [id number] First United French Medigap Part B [id number] Self [id number] Globe Life Ins Medigap Part B [id number] Self [id number] Medicare Natl Govt Servic Medicare Primary [id number] Self [id number] First United French Medigap Part B [id number] Self [id number] Globe Life Ins Medigap Part B [id number] Self [id number] Medicare Natl Govt Servic Medicare Primary [id number] Self [id number] [employer] [place] Commercial [id number] Self [id number] Medicare [facility] Medicare Primary [id number] Self [id number] First United French Medigap Part B [id number] Self [id number] Medicare Natl Govt Servic Medicare Primary [id number] Self [id number] First United French Commercial [id number] Self [id number] [place]/[facility] Medicare Primary [id number] Self [id number] First United French Medigap Part B Self Medicare Natl Govt Servic Medicare Primary Self MEDICARE [id number] SP [id number] D [facility] GE PART A [id number] SP [id number] SELF PAY UNAVAILABLE UNAVAILA BLE Medicare Dme Supplies Medigap Part B Self French Progressive (pr) Medigap Part B Self First United French(pr) Medigap Part B Self First United French(pr) Medigap Part B Self [place] Primary Self MOLD[place] PROGRESSIVE [id number] SP [id number] First United French Medigap Part B Self Medicare [place] Primary Self [id number] D Problems, Conditions, and Diagnoses Code Display Name Description Problem Type Effective Dates Data Source(s) 351183170 Disease caused by 2019-nCoV Disease caused by 2019-nCo V Problem 11/04/2020 12:00:00 AM EST MARKUS ([facility]) K05.313 Chronic periodontitis, localized, severe Chronic periodontitis, localized, severe 05/08/2020 11:53:41 AM EDT [facility] 525.9 Dental disorder Dental disorder 11/30/2019 11:3 2:10 AM EST [facility] [id number] Conjunctivochalasis (disorder) Conjunctiva Conju nctivochalasis Problem 11/15/2019 12:00:00 AM EST LUCIA (Ian chowdhury MD [facility]) Surgeries/Procedures Procedure Description Date Indications Data Source(s) ELECTROENCEPHALOGRAM W/REC AWAKE&ASLEEP 08/18/2020 12: 00:00 AM EDT MEDENT ([facility]) ELECTROENCEPHALOGRAM W/REC AWAKE&ASLEEP 08/18/2020 12: 00:00 AM EDT MEDENT ([facility], ) Needle electromyography, each extremity, with related paraspinal areas, when performed, done with nerve conduction, amplitude and latency/velocity study; complete, five or more muscles studied, innervated by three or more nerves or four or more spinal levels (list separately in addition to the code for primary procedure). 07/23/2020 12:00:00 AM EDT LETY Alexander ([facility], ) 17673 Nerve conduction studies 5-6 studies NEW 201207/23/2020 12:00:00 AM EDT MED[facility] ([facility] ) Magnetic Resonance Angiogtaphy Head W/O Contrast Material(S) 07/18/2020 12:00:00 AM EDT [facility] ([facility] ) Magnetic Resonance Angiogtaphy Head W/O Contrast Material(S) 07/18/2020 12:00:00 AM EDT [facility] ([facility] ) Magnetic Resonance Angiography Neck W/O Contrast Materials 07/18/2020 12:00:00 AM EDT MED[facility] ([facility] ) Magnetic Resonance Angiography Neck W/O Contrast Materials 07/18/2020 12:00:00 AM EDT MED[facility] ([facility] ) MRI BRAIN BRAIN STEM W/O CONTRAST MATERIAL 07/18/2020 12:00:00 AM EDT MEDENT ([facility] ) MRI BRAIN BRAIN STEM W/O CONTRAST MATERIAL 07/18/2020 12:00:00 AM EDT MEDENT ([facility] ) MRI SPINAL CANAL LUMBAR W/O CONTRAST MATERIAL 07/18/20 20 12:00:00 AM EDT MEDENT ([facility] ) MRI SPINAL CANAL LUMBAR W/O CONTRAST MATERIAL 07/18/20 20 12:00:00 AM EDT MEDENT ([facility] ) TSTG ANS FUNCJ CARDIOVAGAL INNERVAJ PARASYMP 0 12:00:00 AM EDT MEDENT ([facility] ) TSTG ANS FUNCJ CARDIOVAGAL INNERVAJ PARASYMP 0 12:00:00 AM EDT MEDENT ([facility] ) TESTING AUTONOMIC NERVOUS SYSTEM FUNCTION 07/09/2020 1 2:00:00 AM EDT MEDENT ([facility] ) TESTING AUTONOMIC NERVOUS SYSTEM FUNCTION 07/09/2020 1 2:00:00 AM EDT MEDENT ([facility] ) NON-INVASIVE PHYSIOLOGIC STUDY EXTREMITY 3 LEVLS 07/09 12:00:00 AM EDT MEDENT ([facility] ) ECG ROUTINE ECG W/LEAST 12 LDS W/I&R 05/26/2020 12:00: 00 AM EDT MEDENT ([facility]) Brief Emotional/Behav Assessment W/ Scoring Doc Per Standard Inst 04/17/2020 12:00:00 AM EDT MEDENT ([facility] ) Brief Emotional/Behav Assessment W/ Scoring Doc Per Standard [facility] 12/27/2019 12:00:00 AM EST MEDENT ([facility] ) Comprehensive eye exam established patient Comprehensi ve eye exam established patient 11/08/2019 12:00:00 AM EST LUCIA (Reji margie Rajan MD [facility]) Results ID Date Data Source [id number] 12/22/2020 09:00:00 AM EST [facility] Name Value Range Interpretation Code Description Data Maggi rce(s) Supporting Document(s) SARS coronavirus 2 RNA Not Detected [facility] [place] This lab was ordered by [facility] and reported by [facility]. ID Date Data Source [id number] 12/15/2020 06:33:00 AM EST [facility] Name Value Range Interpretation Code Description Data Maggi rce(s) Supporting Document(s) SARS coronavirus 2 RNA Not Detected [facility] [place] This lab was ordered by [facility] and reported by [facility]. ID Date Data Source [id number] 12/09/2020 10:09:00 AM EST MEDENT ([facility]) Name Value Range Interpretation Code Description Data Maggi rce(s) Supporting Document(s) Thyrotropin [Units/volume] in Serum or Plasma by Detec tion limit <= 0.05 mIU/L 2.16 uIU/mL 0.36-3.74 MEDENT ([facility] ) ID Date Data Source [id number] 12/09/2020 10:09:00 AM EST MEDENT ([facility]) Name Value Range Interpretation Code Description Data Maggi rce(s) Supporting Document(s) Glucose [Mass/volume] in Serum or Plasma 92 mg/dL 74-99 MEDENT ([facility]) 100-125 mg/dL PRE-DIABETES/FASTING >126 mg/dL DIABETES/FASTING Sodium [Moles/volume] in Serum or Plasma 140 meq/L 136-145 [facility] ([facility]) Creatinine 0.9 mg/dL 0.6-1.3 [facility] Urea nitrogen [Mass/volume] in Serum or Plasma 18 mg/dL 7-18 [facility] Chloride [Moles/volume] in Serum or Plasma 102 meq/L 98-107 [facility]) Carbon dioxide, total [Moles/volume] in Serum or Plasma 27 meq/L 21 -32 [facility]) Potassium [Moles/volume] in Serum or Plasma 4.1 meq/L 3.5-5.1 [facility] Glomerular filtration rate/1.73 sq M pre dicted among non-blacks [Volume Rate/Area] in Serum or Plasma by Creatinine-based formula (MDRD) 60 mL/min [facility]) Calcium [Mass/volume] in Serum or Plasma 9.5 mg/dL 8.5-10.1 [facility] ([facility]) Glomerular filtration rate/1.73 sq M pre dicted among blacks [Volume Rate/Area] in Serum or Plasma by Creatinine-based formula (MDRD) Laboratory test result [facility] ([facility]) <content>CHRONIC KIDNEY DISEASE STAGING PER NKF</content>
<content></content>
<content>STAGE I & II GFR >= 60 NORMAL TO MILDLY DECREASED</content>
<content>STAGE III GFR 30-59 MODERATELY DECREASED</content>
<content>STAGE IV GFR 15-29 SEVERELY DECREASED</content>
<content>STAGE V GFR <15 VERY LITTLE GFR LEFT</content>
<content>ESRD GFR <15 ON CLIENT RELATIONSHIP CONSULTANT</content>
<content></content> ID Date Data Source [id number] 12/09/2020 10:09:00 AM EST [facility] Name Value Range Interpretation Code Description Data Maggi rce(s) Supporting Document(s) Erythrocytes [#/volume] in Blood by Automated count 3.33 x10*6/UL 4.2 0-6.30 [facility] Leukocytes [#/volume] in Blood by Automated count 6.1 x10*3/UL 4.1-10 .9 [facility]) MCV 95.0 fL 80.0-97.0 [facility] Hematocrit [Volume Fraction] of Blood by Automated count 31.6 % 3 7.0-51.0 [facility] ([facility]) Hemoglobin [Mass/volume] in Blood 11.2 g/dL 12.0-18.0 [facility] ([facility]) MCHC 35.6 g/dL 31.0-38.0 [facility] MCH 33.8 pg 26.0-32.0 [facility] Platelets [#/volume] in Blood by Automated count 392 x10*3/UL 140-440 [facility] ([facility]) Erythrocyte distribution width [Ratio] by Automated count 14.0 % 11.6-13.7 [facility] ([facility]) MPV 7.1 FL 7.8-11.0 [facility] Neut % 66.5 % 37.0-92.0 [facility] Lymph % 27.4 % 10.0-58.5 [facility] Mid % 6.1 % 1.7-9.3 [facility] Mid # 0.5 x10*3/UL 0.1-0.6 [facility] ([facility]) Lymph # 1.6 x10*3/UL 0.6-4.1 [facility] ([facility]) Neut # 4.0 x10*3/UL 2.0-7.8 [facility] ([facility]) ID Date Data Source [id number] 12/08/2020 08:00:00 AM EST [facility] Name Value Range Interpretation Code Description Data Maggi rce(s) Supporting Document(s) SARS coronavirus 2 RNA Not Detected [facility] [place] This lab was ordered by [facility] and reported by [facility]. ID Date Data Source [id number] 12/01/2020 08:00:00 AM EST [facility] Name Value Range Interpretation Code Description Data Maggi rce(s) Supporting Document(s) SARS coronavirus 2 RNA Not Detected [facility] [place] This lab was ordered by [facility] and reported by [facility]. ID Date Data Source [id number] 11/24/2020 11:00:00 AM EST [facility] Name Value Range Interpretation Code Description Data Maggi rce(s) Supporting Document(s) SARS coronavirus 2 RNA Not Detected [facility] [place] This lab was ordered by [facility] and reported by [facility]. ID Date Data Source [id number] 11/17/2020 06:00:00 AM EST [facility] Name Value Range Interpretation Code Description Data Maggi rce(s) Supporting Document(s) SARS coronavirus 2 RNA Not Detected [facility] [place] This lab was ordered by [facility] and reported by [facility]. ID Date Data Source [id number] 11/13/2020 07:57:00 PM EST [facility] Name Value Range Interpretation Code Description Data Maggi rce(s) Supporting Document(s) SARS-CoV-2 (COVID 19) NEGATIVE - SARS-CoV-2 (COVID19) [facility] This lab was ordered by [facility] a nd reported by [facility]. ID Date Data Source [id number] 11/12/2020 06:58:00 PM EST MEDENT ([facility]) Name Value Range Interpretation Code Description Data Maggi rce(s) Supporting Document(s) AB Screen (Indirect Brionna)Vis Laboratory test result [facility] ([facility]) Blood Type Laboratory test result [facility] ([facility]) ID Date Data Source [id number] 11/12/2020 06:58:00 PM EST [facility] ([facility]) Name Value Range Interpretation Code Description Data Maggi rce(s) Supporting Document(s) Blood Urea Nitrogen 15 mg/dL 7-18 [facility] ([facility]) Creatinine For GFR 0.88 mg/dL 0.55-1.30 [facility] ([facility]) Glucose, Fasting 123 mg/dL 70-100 [facility] ([facility]) Sodium Level 137 meq/L 136-145 [facility] ([facility]) Glomerular Filtration Rate Laboratory test result [facility] ([facility]) <content>Units are mL/min/1.73 m2</content>
<content></content>
<content>Chronic Kidney Disease Staging per NKF:</content>
<content></content>
<content>Stage I & II GFR >=60 Normal to Mildly Decreased</content>
<content>Stage III GFR 30- 59 Moderately Decreased</content>
<content>Stage IV GFR 15-29 Severely Decreased</content>
<content>Stage V GFR <15 Very Little GFR Left</content>
<content>ESRD GFR <15 on CLIENT RELATIONSHIP CONSULTANT</content>
<content></content> Chloride Level 103 meq/L 98-107 [facility] ([facility]) Potassium Serum 3.8 meq/L 3.5-5.1 [facility] Carbon Dioxide Level 29 meq/L 21-32 [facility] ([facility]) Anion Gap 5 meq/L 8-16 [facility] [facility] Calcium Level 9.2 mg/dL 8.8-10.2 [facility] ([facility]) ID Date Data Source [id number] 11/12/2020 06:58:00 PM EST [facility] ([facility]) Name Value Range Interpretation Code Description Data Maggi rce(s) Supporting Document(s) White Blood Count 6.3 10 4.0-10.0 [facility] ([facility]) Red Blood Count 3.43 10 4.00-5.40 [facility] Hematocrit 33.5 % 36.0-47.0 [facility] Hemoglobin 10.9 g/dL 12.0-15.5 [facility] Mean Corpuscular HGB Conc 32.5 g/dL 32.0-36.5 MEDE NT ([facility]) Mean Corpuscular Volume 97.7 fl 80.0-96.0 [facility] ([facility]) Mean Corpuscular Hemoglobin 31.8 pg 27.0-33.0 ME DENT ([facility]) Red Cell Distribution Width 12.6 % 11.5-14.5 ID DENT ([facility]) Platelet Count, Automated 405 10 150-450 MEDE NT ([facility]) Neutrophils % 49.0 % 36.0-66.0 [facility] ([facility]) [place] % 11.9 % 0.0-5.0 [facility] Eos % 5.7 % 0.0-3.0 [facility] [facility] Lymph % 32.3 % 24.0-44.0 [facility] ([place] [facility]) Immature Granulocyte % 0.3 % 0-3.0 [facility] ([facility]) Baso % 0.8 % 0.0-1.0 [facility] [facility]) Neutrophils # 3.1 10 1.5-8.5 [facility] ([facility]) Lymph # 2.0 10 1.5-5.0 [facility] [facility]) Nucleated Red Blood Cell % 0.0 % 0-0 MED E[facility] ([facility]) Eos # 0.4 10 0.0-0.5 [facility] [facility] [place] # 0.8 10 0.0-0.8 [facility] [facility]) Baso # 0.1 10 0.0-0.2 [facility] [facility] ID Date Data Source [id number] 11/12/2020 09:12:00 AM EST [facility] ([facility]) Name Value Range Interpretation Code Description Data Maggi rce(s) Supporting Document(s) aPTT in Blood by Coagulation assay 34.8 s 24.2-38.5 [facility] ([facility]) ID Date Data Source [id number] 11/12/2020 09:12:00 AM EST [facility] ([facility]) Name Value Range Interpretation Code Description Data Maggi rce(s) Supporting Document(s) Prothrombin Time 13.9 s 12.5-14.3 [facility] ([facility]) Inr 1.05 [facility] ([place] [facility] THERAPUTIC HUMAN INR VALUES INDICATIONS NORMAL RANGES PROPHYLAXIS/TREATMENT OF: VENOUS THROMBOSIS 2.0-3.0 PULMONARY EMBOLISM 2.0-3.0 PREVENTION OF SYSTEMIC EMBOLISM FROM: TISSUE HEART VALVES 2.0-3.0 ACUTE MYOCARDIAL INFARCTION 2.0-3.0 VALVULAR HEART DISEASE 2.0-3.0 ATRIAL FIBRILLATION 2.0-3.0 MECHANICAL VALVES(HIGH RISK) 2.5-3.5 RECURRENT MYOCARDIAL INFARCTION 2.5-3.5 ID Date Data Source [id number] 11/12/2020 08:43:00 AM EST [facility] ([facility]) Name Value Range Interpretation Code Description Data Mgagi rce(s) Supporting Document(s) White Blood Count 6.5 10 4.0-10.0 [facility] ([facility]) Red Blood Count 3.41 10 4.00-5.40 [facility] ([facility]) Hematocrit 33.5 % 36.0-47.0 [facility] [facility]) Mean Corpuscular Volume 98.2 fl 80.0-96.0 [facility] ([facility]) Hemoglobin 10.9 g/dL 12.0-15.5 [facility] ([facility]) Red Cell Distribution Width 12.5 % 11.5-14.5 ME D[facility] ([facility]) Mean Corpuscular Hemoglobin 32.0 pg 27.0-33.0 ME [facility] ([facility]) Mean Corpuscular HGB Conc 32.5 g/dL 32.0-36.5 MED[facility] NT ([facility]) Neutrophils % 63.0 % 36.0-66.0 [facility] ([facility]) Platelet Count, Automated 398 10 150-450 MED[facility] NT ([facility]) Lymph % 21.0 % 24.0-44.0 [facility] [facility] Baso % 0.5 % 0.0-1.0 [facility] [facility]) [place] % 10.0 % 0.0-5.0 [facility] [facility] Eos % 5.2 % 0.0-3.0 [facility] [facility]) Immature Granulocyte % 0.3 % 0-3.0 [facility] ([facility]) Nucleated Red Blood Cell % 0.0 % 0-0 [facility] ([facility]) Neutrophils # 4.1 10 1.5-8.5 [facility] ([facility]) Lymph # 1.4 10 1.5-5.0 [facility] [facility]) Eos # 0.3 10 0.0-0.5 [facility] ([place] [facility]) [place] # 0.7 10 0.0-0.8 [facility] ([place] [facility]) Baso # 0.0 10 0.0-0.2 [facility] [facility] ID Date Data Source [id number] 11/10/2020 10:42:00 AM EST [facility] ([facility]) Name Value Range Interpretation Code Description Data Maggi rce(s) Supporting Document(s) Glucose [Mass/volume] in Serum or Plasma 117 mg/dL 74-99 [facility] ([facility]) 100-125 mg/dL PRE-DIABETES/FASTING >126 mg/dL DIABETES/FASTING Urea nitrogen [Mass/volume] in Serum or Plasma 17 mg/dL 7-18 [facility] ([facility]) Creatinine 0.9 mg/dL 0.6-1.3 [facility] ([facility]) Sodium [Moles/volume] in Serum or Plasma 135 meq/L 136-145 [facility] ([facility]) NOTE: RESULT VERIFIED. Potassium [Moles/volume] in Serum or Plasma 4.5 meq/L 3.5-5.1 [facility] ([facility]) Chloride [Moles/volume] in Serum or Plasma 100 meq/L 98-107 [facility] ([facility]) Calcium [Mass/volume] in Serum or Plasma 9.0 mg/dL 8.5-10.1 [facility] ([facility]) Carbon dioxide, total [Moles/volume] in Serum or Plasma 27 meq/L 21 -32 [facility] ([facility]) Glomerular filtration rate/1.73 sq M pre dicted among blacks [Volume Rate/Area] in Serum or Plasma by Creatinine-based formula (MDRD) Laboratory test result [facility] ([facility]) <content>CHRONIC KIDNEY DISEASE STAGING PER NKF</content>
<content></content>
<content>STAGE I & II GFR >= 60 NORMAL TO MILDLY DECREASED</content>
<content>STAGE III GFR 30-59 MODERATELY DECREASED</content>
<content>STAGE IV GFR 15-29 SEVERELY DECREASED</content>
<content>STAGE V GFR <15 VERY LITTLE GFR LEFT</content>
<content>ESRD GFR <15 ON CLIENT RELATIONSHIP CONSULTANT</content>
<content></content> Glomerular filtration rate/1.73 sq M pre dicted among non-blacks [Volume Rate/Area] in Serum or Plasma by Creatinine-based formula (MDRD) 60 mL/min [facility] ([facility]) ID Date Data Source [id number] 11/10/2020 10:42:00 AM EST [facility] ([facility]) Name Value Range Interpretation Code Description Data Maggi rce(s) Supporting Document(s) Leukocytes [#/volume] in Blood by Automated count 7.0 x10*3/UL 4.1-10 .9 [facility] ([facility]) Erythrocytes [#/volume] in Blood by Automated count 3.38 x10*6/UL 4.2 0-6.30 [facility] ([facility]) Hemoglobin [Mass/volume] in Blood 11.3 g/dL 12.0-18.0 [facility] ([facility]) Hematocrit [Volume Fraction] of Blood by Automated count 32.1 % 3 7.0-51.0 [facility] ([facility]) MCH 33.3 pg 26.0-32.0 [facility] [facility] MCHC 35.1 g/dL 31.0-38.0 [facility] [facility] MCV 94.9 fL 80.0-97.0 [facility] ([place] [facility]) Platelets [#/volume] in Blood by Automated count 419 x10*3/UL 140-440 [facility] Erythrocyte distribution width [Ratio] by Automated count 13.6 % 11.6-13.7 [facility] ([facility]) MPV 7.4 FL 7.8-11.0 [facility] [facility]) Mid % 4.3 % 1.7-9.3 [facility] [facility] Neut % 80.5 % 37.0-92.0 [facility] [facility] Lymph % 15.2 % 10.0-58.5 [facility] [facility]) Mid # 0.4 x10*3/UL 0.1-0.6 [facility] ([facility]) Lymph # 1.0 x10*3/UL 0.6-4.1 [facility] ([facility]) Neut # 5.6 x10*3/UL 2.0-7.8 [facility] ([facility]) ID Date Data Source [id number] 11/10/2020 07:48:00 AM EST [facility] Name Value Range Interpretation Code Description Data Maggi rce(s) Supporting Document(s) SARS coronavirus 2 RNA Not [facility]ed [facility] This lab was ordered by [facility] and reported by [facility]. ID Date Data Source [id number] 11/02/2020 11:30:00 AM EST [facility] Name Value Range Interpretation Code Description Data Maggi rce(s) Supporting Document(s) SARS coronavirus 2 RNA [Presence] in Res piratory specimen by BIA with probe detection [facility] This lab was ordered by [facility] a nd reported by [facility]. ID Date Data Source [id number] 10/26/2020 09:58:00 AM EST [facility] Name Value Range Interpretation Code Description Data Maggi rce(s) Supporting Document(s) SARS coronavirus 2 RNA [Presence] in Res piratory specimen by BIA with probe detection [facility] This lab was ordered by [facility] a nd reported by [facility]. ID Date Data Source [id number] 10/22/2020 07:32:00 PM EST [facility] Name Value Range Interpretation Code Description Data Maggi rce(s) Supporting Document(s) Respiratory pathogens identified [Type] in Nasopharynx by Probe and target amplification method [facility] This lab was ordered by [facility] a nd reported by [facility]. ID Date Data Source [id number] 10/22/2020 11:54:00 AM EST [facility] Name Value Range Interpretation Code Description Data Maggi rce(s) Supporting Document(s) SARS coronavirus 2 RNA [facility] This lab was ordered by [facility] and reported by [facility]. ID Date Data Source [id number] 10/22/2020 12:00:00 AM EST [facility] Name Value Range Interpretation Code Description Data Maggi rce(s) Supporting Document(s) SARS-CoV2 Rapid Antigen [facility] This lab was ordered by [facility] and reported by [facility]. ID Date Data Source [id number] 10/17/2020 02:46:00 PM EST [facility] Name Value Range Interpretation Code Description Data Maggi rce(s) Supporting Document(s) SARS coronavirus 2 RNA [facility] This lab was ordered by [facility] and reported by [facility]. ID Date Data Source [id number] 07/03/2020 03:49:53 PM EDT [facility] Current Problems: Chronic periodontitis, localized, severe (HXO08-Y78.313)Dental disorder (ICD-525.9) (BYC97-X37.9)DENTAL TAOIST STATUS (ICD-V45.84) (SZY15-E40.811)Current Medications: AMOXICILLIN 500 MG CAPS (AMOXICILLIN) 1 tablet by mouth every 8 hours until gone; Route: ORALCHLORHEXIDINE GLUCONATE 0.12 % SOLN (CHLORHEXIDINE GLUCONATE) Rinse for 1 minute with 10mL before bed; Route: MOUTH/THROATCHLORHEXIDINE GLUCONATE 0.12 % SOLN (CHLORHEXIDINE GLUCONATE) Rinse for 1 minute with 10mL before bed; Route: MOUTH/THROATCHLORHEXIDINE GLUCONATE 0.12 % SOLN (CHLORHEXIDINE GLUCONATE) Rinse for 1 minute with 10mL before bed; Route: MOUTH/THROAT* SEE SCANNED 2 PAGES Dental Chart: Procedures:Type - CDT Code - Description B - (D0140) Limited oral evaluation - problem focused on Tooth # 20 (Performed by Zina Carrillo DMD) Chart Notes:jlam (Jul 03 2020 4:26PM): Additional PPE requirements due to COVID-19 in the dental setting, N95, surgical mask, hair covering, gown and shield.S: CC:"I had a toothache on Tuesday and it was terrible, so I made an appt., but of course it does not hurt today. It is on the lower left."O: RMHx (-)per pt. no changes. HPI: Tuesday PL: 0 BP: 173/90. Took a second time, 196/122 PA unable to be taken due to discomfort in the pt. jaw.A: DDS recommends to plae amoxicillin and Chlorohexidine and placed referral to OS for extraction of #20. DX:defective latter-day with sym perio. P:refer to OSE-scribe Amoxicillin 500mg q8h until gone dispense 21 tabs zero refills and CHXInformed Pt about new pain management policy of the clinic regarding about narcotic,told pt to alternate Ibuprophen 600- 800mg and tylenol 500mg every 4 to 6 hrs for pain when needed. Assisted By: AM NV: p/e.Zina Carrillo DMD by [facility] (07/03/2020 4:26 PM): Tooth Notes and Watches:- Tooth 20 Watch: In the Root and bothers her but not enough to fix yet. Sumi Delaney by isaiah (08/04/2017 4:38 PM): BuccalSumi Delaney by isaiah (08/14/2018 10:42 AM): - Tooth 20 Note: If patient calls because problem persists, Refer to OS for ext.Zina Carrillo DMD by pdinepandat (05/08/2020 9:55 AM): - Tooth 29 Note: sdf if that doesn't then try a filling.Sumi Delaney by isaiah (08/14/2018 11:07 AM): - Tooth 30 Note: Try SDF if that doesn't work then a fillingSumi Delaney by isaiah (08/14/2018 11:06 AM): Assessment & Plan Medications:AMOXICILLIN 500 MG CAPSCHLORHEXIDINE GLUCON ATE 0.12 % SOLNCHLORHEXIDINE GLUCONATE 0.12 % SOLNCHLORHEXIDINE GLUCONATE 0.12 % SOLNSEE SCANNED 2 PAGESMedication Changes:New Prescription:CHLORHEXIDINE GLUCONATE 0.12 % SOLN-Rinse for 1 minute with 10mL before bed Qty: 1[Bottle] Refills: 0 Method: ElectronicAMOXICILLIN 500 MG CAPS-1 tablet by mouth every 8 hours until gone Qty: 21[Capsule] Refills: 0 Method: ElectronicAllergies:No Known Allergies (updated 06/05/2020) Orders:Oral Surgery Referral [[id number]] Name Value Range Interpretation Code Description Data Maggi rce(s) Supporting Document(s) ID Date Data Source [id number] 06/05/2020 09:43:35 AM EDT [facility] Patient History Medical History:There is 2 pages of paperworked scanned for her medical history and 3 pages scanned in for her medicines. High cholesterolHypertensionSpinal stenosisHypothyroidismSleep apneaPolyneuropathyGERDSpinal stenosisFamily History:Cancer - Breast (Mother)Heart disease (Father)Heart disease (Mother)Heart disease (Brother)Social/Personal History: Smoking Status: former smokerCurrent Problems: Chronic periodontitis, localized, severe (UMJ24-T08.313)Dental disorder (ICD- 525.9) (UJJ56-L30.9)DENTAL TAOIST STATUS (ICD-V45.84) (ICD10- Z98.811)Current Medications: CHLORHEXIDINE GLUCONATE 0.12 % SOLN (CHLORHEXIDINE GLUCONATE) Rinse for 1 minute with 10mL before bed; Route: MOUTH/THROATCHLORHEXIDINE GLUCONATE 0.12 % SOLN (CHLORHEXIDINE GLUCONATE) Rinse for 1 minute with 10mL before bed; Route: MOUTH/THROAT* SEE SCANNED 2 PAGES Past Medical History:(reviewed - no changes required) There is 2 pages of paperworked scanned for her medical history and 3 pages scanned in for her medicines. High cholesterolHypertensionSpinal stenosisHypothyroidismSleep apneaPolyneuropathyGERDSpinal stenosis Dental Chart: Procedures:Type - CDT Code - Description B - (D0120) Periodic oral evaluation - established patient (Performed by Zina Carrillo DMD) B - (D1110) Prophylaxis, adult (Performed by Viky Hernandez) B - (D0274) Bitewings, 4 radiographic images (Performed by Viky Hernandez) B - (D1354) Interim caries arresting medicament application on Tooth # 29 on Tooth Surface B (Performed by Viky Hernandez) Chart Notes:phong (Jun 05 2020 11:44AM): [facility](-). CC: none. Reviewed Xrays. Exam:caries on crown detected NR for now. OCS: WNL, IO/ EO completed, No significant hard findings upon clinical exam.Additional PPE requirements due to COVID-19 in the dental setting, N95, surgical mask, hair covering, gown and shieldPt was cooperative. OHI given Referral: N/A Smoothed #3 per Pt requestNV:recallViky Hernandez by phong (06/05/2020 11:44 AM): ; hunter (Jun 05 2020 10:56AM): [facility](-)cc-My upper right and left teeth have been hurting . Explained to patient that discomfort is because of bone loss. 12 M- 5mm , 20 M 5 mmMobility 12 - Class I, 13- Class II , 20- Class IIFaulty margins on # 10 (mesial ) , 20, 29 and 30. patient refused to have them replacedApplied silver diamide on lingual of 29 buccalPatient has has scar tissue on left lateral border of tongue. Dr. Carrillo smoothened the lingual cusp of # 2Adult prophy - handscaled, brushed with mint prophy paste , flossed , 4BWXOH-fairPatient reported brushing twice/day, flossing regularly. Trace marginal biofilm with trace marginal and interproximal calculus in sextant 5Tissues- mild bleeding on flossingOHI-brushing am pm, flossing and then using Listerine zero total carePatient was cooperativeNV-6 months recallViky Hernandez by hunter (06/05/2020 10:56 AM): Tooth Notes and Watches:- Tooth 20 Watch: In the Root and bothers her but not enough to fix yet. Sumi Delaney by [facility] (08/04/2017 4:38 PM): Sumi Barahona by isaiah (08/14/2018 10:42 AM): - Tooth 20 Note: If patient calls because problem persists, Refer to OS for ext.Zina Carrillo DMD by amilcar (05/08/2020 9:55 AM): - Tooth 29 Note: sdf if that doesn't then try a filling.Sumi Delaney by isaiah (08/14/2018 11:07 AM): - Tooth 30 Note: Try SDF if that doesn't work then a fillingSumi Delaney by isaiah (08/14/2018 11:06 AM): Assessment & Plan Medications:CHLORHEXIDINE GLUCONATE 0.12 % SOLNCHLORHEXIDINE GLUCONATE 0.12 % SOLNSEE SCANNED 2 PAGESAllergies:No Known Allergies (updated 06/05/2020) A M Name Value Range Interpretation Code Description Data Maggi rce(s) Supporting Document(s) ID Date Data Source [id number] 05/21/2020 07:20:00 PM EDT [facility] ([facility]) Name Value Range Interpretation Code Description Data Maggi rce(s) Supporting Document(s) Magnesium [Moles/volume] in Serum or Plasma 2.3 mg/dL 1.8-2.4 [facility] ([facility]) ID Date Data Source [id number] 05/21/2020 07:20:00 PM EDT [facility] ([facility]) Name Value Range Interpretation Code Description Data Maggi rce(s) Supporting Document(s) Glucose, Fasting 87 mg/dL 70-100 [facility] ([facility]) Blood Urea Nitrogen 17 mg/dL 7-18 [facility] ([facility]) Creatinine For GFR 0.96 mg/dL 0.55-1.30 [facility] ([facility]) Glomerular Filtration Rate 59.4 [facility] ([facility]) <content>Units are mL/min/1.73 m2</content>
<content></content>
<content>Chronic Kidney Disease Staging per NKF:</content>
<content></content>
<content>Stage I & II GFR >=60 Normal to Mildly Decreased</content>
<content>Stage III GFR 30- 59 Moderately Decreased</content>
<content>Stage IV GFR 15-29 Severely Decreased</content>
<content>Stage V GFR <15 Very Little GFR Left</content>
<content>ESRD GFR <15 on CLIENT RELATIONSHIP CONSULTANT</content>
<content></content> Potassium Serum 4.1 meq/L 3.5-5.1 [facility] ([facility]) Chloride Level 106 meq/L 98-107 [facility] ([facility]) Sodium Level 140 meq/L 136-145 [facility] ([facility]) Anion Gap 5 meq/L 8-16 [facility] [facility]) Carbon Dioxide Level 29 meq/L 21-32 [facility] ([facility]) Calcium Level 9.0 mg/dL 8.8-10.2 [facility] ([facility]) ID Date Data Source [id number] 05/21/2020 07:20:00 PM EDT [facility] Name Value Range Interpretation Code Description Data Maggi rce(s) Supporting Document(s) CPK Creatine Phosphokinase 89 U/L 26-192 [facility] ([facility]) CK-MB Value Mass 2.5 ng/mL [facility]) MB/CK Relative Index 2.81 [facility] ([facility]) <content>DIAGNOSIS CRITERIA</content>
<content>MMB ng/ml Relative Index (RI)</content>
<content>NON-AMI < or = 5 N/A</content>
<content>COSTA ZONE > 5 < or = 4</content>
<content>AMI > 5 > 4</content>
<content></content> Troponin I Laboratory test result [facility]) <content>Troponin I Reference Interval f or Siemens [place] LOCI:</content>
<content></content>
<content>99th Percentile= 0.00-0.045 ng/ml</content>
<content></content>
<content>Risk Stratification:</content>
<content><= 0.10 ng/ml Decreased Risk for Adverse Clinical</content>
<content>Events.</content>
<content>0.10-1.50 ng/ml Increased Risk for Adverse Clinical</content>
<content>Events. Evaluation of additional</content>
<content>criterion and/or repeat testing in 2-6</content>
<content>hours is suggested to rule out myocardial</content>
<content>damage.</content>
<content>>= 1.50 ng/ml Indicative of Myocardial Injury.</content>
<content></content> ID Date Data Source [id number] 05/21/2020 07:20:00 PM EDT [facility]) Name Value Range Interpretation Code Description Data Maggi rce(s) Supporting Document(s) Prothrombin Time 13.8 s 11.8-14.0 [facility] ([facility]) Inr 1.09 [facility] [facility]) THERAPUTIC HUMAN INR VALUES INDICATIONS NORMAL RANGES PROPHYLAXIS/TREATMENT OF: VENOUS THROMBOSIS 2.0-3.0 PULMONARY EMBOLISM 2.0-3.0 PREVENTION OF SYSTEMIC EMBOLISM FROM: TISSUE HEART VALVES 2.0-3.0 ACUTE MYOCARDIAL INFARCTION 2.0-3.0 VALVULAR HEART DISEASE 2.0-3.0 ATRIAL FIBRILLATION 2.0-3.0 MECHANICAL VALVES(HIGH RISK) 2.5-3.5 RECURRENT MYOCARDIAL INFARCTION 2.5-3.5 Partial Thromboplastin Time 34.3 s 25.0-38.4 [facility] ([facility]) ID Date Data Source [id number] 05/21/2020 06:15:00 PM EDT [facility]) Name Value Range Interpretation Code Description Data Maggi rce(s) Supporting Document(s) AB Screen (Indirect [place])Vis Laboratory test result [facility] ([facility]) Blood Type Laboratory test result [facility] ([facility]) ID Date Data Source [id number] 05/21/2020 06:15:00 PM EDT [facility] ([facility]) Name Value Range Interpretation Code Description Data Maggi rce(s) Supporting Document(s) White Blood Count 5.9 10 4.0-10.0 [facility] ([facility]) Red Blood Count 3.70 10 4.00-5.40 [facility] ([facility]) Hemoglobin 12.3 g/dL 12.0-15.5 [facility] ([facility]) Mean Corpuscular Volume 99.5 fl 80.0-96.0 MEDENT ([facility]) Hematocrit 36.8 % 36.0-47.0 MEDENT ([facility]) Mean Corpuscular Hemoglobin 33.2 pg 27.0-33.0 ME DENT ([facility]) Mean Corpuscular HGB Conc 33.4 g/dL 32.0-36.5 MEDE NT ([facility]) Red Cell Distribution Width 13.1 % 11.5-14.5 [facility] ([facility]) Platelet Count, Automated 295 10 150-450 MEDE NT ([facility]) Lymph % 36.0 % 24.0-44.0 [facility] [place] % 10.4 % 0.0-5.0 [facility] Neutrophils % 45.7 % 36.0-66.0 MED[facility] ([facility]) Eos % 6.9 % 0.0-3.0 [facility] Baso % 0.8 % 0.0-1.0 [facility] Immature Granulocyte % 0.2 % 0-3.0 MEDENT ([facility]) Nucleated Red Blood Cell % 0.0 % 0-0 MED ENT ([facility]) [place] # 0.6 10 0.0-0.8 [facility] Neutrophils # 2.7 10 1.5-8.5 [facility] ([facility]) Lymph # 2.1 10 1.5-5.0 [facility] Baso # 0.1 10 0.0-0.2 [facility] Eos # 0.4 10 0.0-0.5 [facility] ID Date Data Source [id number] 05/08/2020 08:40:17 AM EDT [facility] Current Problems: Chronic periodontitis, localized, severe (JVH70-L95.313)Dental disorder (ICD-525.9) (YDJ50-T11.9)DENTAL TAOIST STATUS (ICD-V45.84) (DOW51-Y45.811)Problem list reviewed during this update.Current Medications: CHLORHEXIDINE GLUCONATE 0.12 % SOLN (CHLORHEXIDINE GLUCONATE) Rinse for 1 minute with 10mL before bed; Route: MOUTH/THROAT* SEE SCANNED 2 PAGES Medication list reviewed during this update.Allergy list reviewed during this update.No known allergies. Dental Chart: Procedures:Type - CDT Code - Description B - (D0220) Intraoral, periapical, first radiographic image on Tooth # 20 (Performed by Zina Carrillo DMD) B - (D0140) Limited oral evaluation - problem focused on Tooth # 20 (Performed by Zina Carrillo DMD) Chart Notes:jlam (May 08 2020 11:53AM): Additional PPE requirements due to COVID-19 in the dental setting, N95, surgical mask, hair covering, gown and shield.S: CC:I had an absolute bad tooth ache which is now gone" O: RMHx (-)see med history HPI: off and on for a while, did not go to OS PL: 1-2BP: 165/110 : 84, PA #20, mobility and excessive bleeding with probing, probably what is causing discomfort.A: DDS recommends Using chlorhexadine for a couple of weeks , DX: Localized perio and defective crown.P: if problem is still bothering patient she is to call clinic for a referral to OS for ext of #20, Pt cannt replace #20 crown E-scribe Chlorhexadine, zero refills Informed Pt about new pain management policy of the clinic regarding about narcotic,told pt to alternate Ibuprophen 600- 800mg and tylenol 500mg every 4 to 6 hrs for pain when needed. Assisted By: PD NV: Earlene/Zina Nichols DMD by phong (05/08/2020 11:53 AM): Tooth Notes and Watches:- Tooth 20 Watch: In the Root and bothers her but not enough to fix yet. Sumi Delaney by isaiah (08/04/2017 4:38 PM): BuccalSumi Delaney by isaiah (08/14/2018 10:42 AM): - Tooth 20 Note: If patient calls because problem persists, Refer to OS for ext.Zina Carrillo DMD by amilcar (05/08/2020 9:55 AM): - Tooth 29 Note: sdf if that doesn't then try a filling.Sumi Delnaey by isaiah (08/14/2018 11:07 AM): - Tooth 30 Note: Try SDF if that doesn't work then a fillingSumi Delaney by isaiah (08/14/2018 11:06 AM): Assessment & Plan Problems:Added: Chronic periodontitis, localized, severe (OSE73-Q62.313)Medications:CHLORHEXIDINE GLUCONATE 0.12 % SOLNSEE SCANNED 2 PAGESMedication Changes:New Prescription:CHLORHEXIDINE GLUCONATE 0.12 % SOLN- Rinse for 1 minute with 10mL before bed Qty: 1[Bottle] Refills: 0 Method: ElectronicAllergies:No Known Allergies (updated 05/08/2020) Name Value Range Interpretation Code Description Data Maggi rce(s) Supporting Document(s) ID Date Data Source [id number] 04/24/2020 12:00:00 AM EDT [facility] Name Value Range Interpretation Code Description Data Maggi rce(s) Supporting Document(s) 2019-nCoV N XXX Ql BIA N2 [facility] [place] This lab was ordered by [facility] and reported by DARY. ID Date Data Source [id number] 12/27/2019 02:37:00 PM EST MED[facility] ([facility]) Name Value Range Interpretation Code Description Data Maggi rce(s) Supporting Document(s) Thyrotropin [Units/volume] in Serum or Plasma by Detec tion limit <= 0.05 mIU/L 2.06 uIU/mL 0.36-3.74 MED[facility] ([facility] ) ID Date Data Source [id number] 12/27/2019 02:37:00 PM EST MED[facility] ([facility]) Name Value Range Interpretation Code Description Data Maggi rce(s) Supporting Document(s) Glucose [Mass/volume] in Serum or Plasma 93 mg/dL 74-99 MED[facility] ([facility]) 100-125 mg/dL PRE-DIABETES/FASTING >126 mg/dL DIABETES/FASTING Sodium [Moles/volume] in Serum or Plasma 140 meq/L 136-145 [facility] ([facility]) Urea nitrogen [Mass/volume] in Serum or Plasma 21 mg/dL 7-18 [facility] ([facility]) Creatinine 1.0 mg/dL 0.6-1.3 [facility] Chloride [Moles/volume] in Serum or Plasma 103 meq/L 98-107 [facility] ([facility]) Potassium [Moles/volume] in Serum or Plasma 4.2 meq/L 3.5-5.1 [facility] ([facility]) Carbon dioxide, total [Moles/volume] in Serum or Plasma 28 meq/L 21 -32 [facility] ([facility]) Calcium [Mass/volume] in Serum or Plasma 9.5 mg/dL 8.5-10.1 [facility] ([facility]) Glomerular filtration rate/1.73 sq M pre dicted among non-blacks [Volume Rate/Area] in Serum or Plasma by Creatinine-based formula (MDRD) 53 mL/min MED[facility] ([facility]) Glomerular filtration rate/1.73 sq M pre dicted among blacks [Volume Rate/Area] in Serum or Plasma by Creatinine-based formula (MDRD) Laboratory test result [facility] ([facility]) <content>CHRONIC KIDNEY DISEASE STAGING PER NKF</content>
<content></content>
<content>STAGE I & II GFR >= 60 NORMAL TO MILDLY DECREASED</content>
<content>STAGE III GFR 30-59 MODERATELY DECREASED</content>
<content>STAGE IV GFR 15-29 SEVERELY DECREASED</content>
<content>STAGE V GFR <15 VERY LITTLE GFR LEFT</content>
<content>ESRD GFR <15 ON CLIENT RELATIONSHIP CONSULTANT</content>
<content></content> ID Date Data Source [id number] 12/27/2019 02:37:00 PM EST MED[facility] ([facility]) Name Value Range Interpretation Code Description Data Maggi rce(s) Supporting Document(s) Erythrocytes [#/volume] in Blood by Automated count 3.73 x10*6/UL 4.2 0-6.30 [facility] ([facility]) Leukocytes [#/volume] in Blood by Automated count 5.6 x10*3/UL 4.1-10 .9 [facility] Hematocrit [Volume Fraction] of Blood by Automated count 35.7 % 3 7.0-51.0 [facility] MCV 95.6 fL 80.0-97.0 [facility] [facility]) Hemoglobin [Mass/volume] in Blood 12.4 g/dL 12.0-18.0 [facility] ([facility]) MCH 33.1 pg 26.0-32.0 [facility] MCHC 34.6 g/dL 31.0-38.0 [facility] ([facility]) Erythrocyte distribution width [Ratio] by Automated count 12.9 % 11.6-13.7 [facility] ([facility]) Platelets [#/volume] in Blood by Automated count 262 x10*3/UL 140-440 [facility] ([facility]) Lymph % 41.2 % 10.0-58.5 [facility]) MPV 7.9 FL 7.8-11.0 [facility]) Mid % 7.4 % 1.7-9.3 [facility]) Lymph # 2.3 x10*3/UL 0.6-4.1 [facility] ([facility]) Mid # 0.5 x10*3/UL 0.1-0.6 [facility] ([facility]) Neut % 51.4 % 37.0-92.0 [facility] Neut # 2.8 x10*3/UL 2.0-7.8 [facility] ([facility]) ID Date Data Source [id number] 11/30/2019 11:23:55 AM [facility] Current Problems: DENTAL TAOIST STA TUS (ICD-V45.84) (QIZ13-K14.811)Current Medications: * SEE SCANNED 2 PAGES Dental Chart: Procedures:Type - CDT Code - Description B - (D1354) Interim caries arresting medicament application on Tooth # 10 on Tooth Surface I (Performed by Zina Carrillo DMD) B - (D1354) Interim caries arresting medicament application on Tooth # 14 on Tooth Surface O (Performed by Zina Carrillo DMD) B - (D1354) Interim caries arresting medicament application on Tooth # 2 on Tooth Surface O (Performed by Zina Carrillo DMD) B - (D1354) Interim caries arresting medicament application on Tooth # 29 on Tooth Surface O (Performed by Zina Carrillo DMD) B - (D1354) Interim caries arresting medicament application on Tooth # 3 on Tooth Surface O (Performed by Zina Carrillo DMD) B - (D1354) Interim caries arresting medicament application on Tooth # 30 on Tooth Surface O (Performed by Zina Carrillo DMD) B - (D1354) Interim caries arresting medicament application on Tooth # 31 on Tooth Surface O (Performed by Zina Carrillo DMD) Chart Notes:phong (Nov 30 2019 11:33AM): pt. was present for 1st SDF application o #'s 2, 3, 10, 14, 29, 30 and 31. Placed SDF and let sit for three minutes and placed varnish over. Pt. was cooperative. NV: recall.Zina Carrillo DMD by phong (11/30/2019 11:33 AM): ; phong (Nov 30 2019 11:45AM): [facility]). CC: none. Reviewed Xrays. Exam: caries/defective latter-day detected. OCS: WNL, IO/ EO completed, No significant hard findings upon clinical exam Pt was cooperative.OHI givenReferral: N/ANV:SDF application Pt understand SDF is stop the progression of the caries and decrease sensitivity. Zina Carrillo DMD by phong (11/30/2019 11:44 AM): Tooth Notes and Watches:- Tooth 20 Watch: In the Root and bothers her but not enough to fix yet. Sumi Delaney by isaiah (08/04/2017 4:38 PM): BuccalSumi Delaney by isaiah (08/14/2018 10:42 AM): - Tooth 29 Note: sdf if that doesn't then try a filling.Sumi Delaney by isaiah (08/14/2018 11:07 AM): - Tooth 30 Note: Try SDF if that doesn't work then a fillingSumi Delaney by isaiah (08/14/2018 11:06 AM): Current Problems: Dental disorder (ICD-525.9) (UGT29-V22.9)DENTAL TAOIST STATUS (ICD-V45.84) (URF16-U11.811)Current Medications: * SEE SCANNED 2 PAGES Dental Chart: Chart Notes:phong (Nov 30 2019 12:42PM): Refer to OS sent for right border of the tongue, 2x2 red purplish lesion. Pt is unknow how long it has been there.Zina Carrillo DMD by phong (11/30/2019 12:42 PM): Tooth Notes and Watches:- Tooth 20 Watch: In the Root and bothers her but not enough to fix yet. Sumi Delaney by isaiah (08/04/2017 4:38 PM): BuccalSumi Delaney by isaiah (08/14/2018 10:42 AM): - Tooth 29 Note: sdf if that doesn't then try a filling.Sumi Delaney by isaiah (08/14/2018 11:07 AM): - Tooth 30 Note: Try SDF if that doesn't work then a fillingSumi Delaney by isaiah (08/14/2018 11:06 AM): Name Value Range Interpretation Code Description Data Maggi rce(s) Supporting Document(s) ID Date Data Source [id number] 11/30/2019 10:04:59 AM [facility] Vital SignsBlood Pressure: 149/89 Patient History Medical History:There is 2 pages of paperworked scanned for her medical history and 3 pages scanned in for her medicines. High cholesterolHypertensionSpinal stenosisHypothyroidismSleep apneaPolyneuropathyGERDSpinal stenosisFamily History:Cancer - Breast (Mother)Heart disease (Father)Heart disease (Mother)Heart disease (Brother)Social/Personal History: Smoking Status: former smokerCurrent Problems: Dental disorder (ICD-525.9) (CUU28-D72.9)DENTAL TAOIST STATUS (ICD-V45.84) (IET55-D54.811)Current Medications: * SEE SCANNED 2 PAGES Past Medical History:(reviewed - no changes required) There is 2 pages of paperworked scanned for her medical history and 3 pages scanned in for her medicines. High cholesterolHypertensionSpinal stenosisHypothyroidismSleep apneaPolyneuropathyGERDSpinal stenosis Dental Chart: Procedures:Type - CDT Code - Description B - (D0330) Panoramic film (Performed by Viky Hernandez) B - (D1110) Prophylaxis, adult (Performed by Viky Hernandez) B - (D0120) Periodic oral evaluation - established patient (Performed by Zina Carrillo DMD) B - (D1354) Interim caries arresting medicament application on Tooth # 10 on Tooth Surface M (Performed by Viky Hernandez) B - (D1354) Interim caries arresting medicament application on Tooth # 14 on Tooth Surface L (Performed by Viky Hernandez) B - (D1354) Interim caries arresting medicament application on Tooth # 2 on Tooth Surface M (Performed by Viky Hernandez) B - (D1354) Interim caries arresting medicament application on Tooth # 29 on Tooth Surface B (Performed by Viky Hernandez) B - (D1354) Interim caries arresting medicament application on Tooth # 3 on Tooth Surface D (Performed by Viky Hernandez) B - (D1354) Interim caries arresting medicament application on Tooth # 30 on Tooth Surface B (Performed by Viky Hernandez) B - (D1354) Interim caries arresting medicament application on Tooth # 31 on Tooth Surface B (Performed by Viky Hernandez) Existing:Type - CDT Code - Description[D] (D1354) Interim caries arresting medicament application Chart Notes:hunter (Nov 30 2019 11:07AM): [facility](-)cc-My upper right and left teeth have been hurting Faulty ma rgins on # 10 (mesial ) , 20, 29 and 30. patient refused to have them replacedDr. Gerardo applied silver diamide on lingual of # 14 , between # 2 and 3, 10 mesial and 29 buccalPatient has raised reddish lesion 2 mm by 2 mm on right lateral border of tongue. Referred for OS consultAdult prophy -handscaled, brushed with mint prophy paste , flossed , KAM [place]-fairPatient reported brushing twice/day, flossing regularly. Trace marginal biofilm with trace marginal and interproximal calculus in sextant 5Tissues- mild bleeding on flossingOHI- brushing am pm, flossing and then using Listerine zero total carePatient was cooperativeNV-6 months recallMarySandraa by hunter (11/30/2019 10:39 AM): Tooth Notes and Watches:- Tooth 20 Watch: In the Root and bothers her but not enough to fix yet. Sumi Delaney by isaiah (08/04/2017 4:38 PM): BuccalSumi Delaney by isaiah (08/14/2018 10:42 AM): - Tooth 29 Note: sdf if that doesn't then try a filling.Sumi Delaney by isaiah (08/14/2018 11:07 AM): - Tooth 30 Note: Try SDF if that doesn't work then a fillingSumi Delaney by isaiah (08/14/2018 11:06 AM): Assessment & Plan Problems:Added: Dental disorder (ICD- 525.9) (HDI28-E14.9)Medications:SEE SCANNED 2 PAGESAllergies:No Known Allergies (updated 11/30/2019) Orders:Oral Surgery Referral [[id number]] Name Value Range Interpretation Code Description Data Maggi rce(s) Supporting Document(s) Procedure Social History Code Duration Value Status Description Data Source(s ) Smoking 09/11/2020 12:00:00 AM EST Patient is a former smoker completed Patient is a former smoker MEDENT ([facility], ) Smoking 11/15/2019 02:38:58 PM EST Ex-smoker (finding) complet ed Ex-smoker (finding) LUCIA (Ian Rajan MD [facility]) Vital Signs ID Date Data Source UNK Name Value Range Interpretation Code Description Data Source(s) Body mass index (BMI) [Ratio] 29.5 kg/m2 29.5 k g/m2 MED[facility] ([facility]) Body weight 165.00 [lb_av] 165.00 [lb_av] MEDEN T ([facility]) Body height 62.75 [in_i] 62.75 [in_i] [facility] 5'2.75" Heart rate 92 /min 92 /min MED[facility] ([facility]) Diastolic blood pressure 70 mm[Hg] 70 mm[Hg] MED[facility] ([facility]) RT Arm Systolic blood pressure 110 mm[Hg] 110 mm[Hg] M EDENT ([facility]) RT Arm Body surface area Derived from formula 1.77 m2 1.77 m2 MEDENT ([facility]) Body weight 73.937 kg 73.937 kg [facility] ([facility]) Advance body weight 115 [lb_av] 115 [lb_av] MEDEN T ([facility]) Body mass index (BMI) [Ratio] 28.9 kg/m2 28.9 k g/m2 [facility] ([facility]) Body weight 163.00 [lb_av] 163.00 [lb_av] MEDEN T ([facility]) Body height 63 [in_i] 63 [in_i] [facility] 5'3" Body surface area Derived from formula 1.77 m2 1.77 m2 [facility] ([facility]) Body weight 73.937 kg 73.937 kg [facility] ([facility]) Advance body weight 115 [lb_av] 115 [lb_av] MEDEN T ([facility]) Body mass index (BMI) [Ratio] 28.9 kg/m2 28.9 k g/m2 [facility] ([facility]) Body weight 163.00 [lb_av] 163.00 [lb_av] MEDEN T ([facility]) Body height 63 [in_i] 63 [in_i] MEDENT ([facility]) 5'3" Body surface area Derived from formula 1.77 m2 1.77 m2 [facility] Body weight 73.937 kg 73.937 kg [facility]) Advance body weight 115 [lb_av] 115 [lb_av] MEDEN T ([facility]) Body mass index (BMI) [Ratio] 28.9 kg/m2 28.9 k g/m2 [facility] ([facility]) Body weight 163.00 [lb_av] 163.00 [lb_av] MEDEN T ([facility]) Body height 63 [in_i] 63 [in_i] [facility] ([facility]) 5'3" Body mass index (BMI) [Ratio] 29.5 kg/m2 29.5 k g/m2 MED[facility] ([facility]) Body weight 165.12 [lb_av] 165.12 [lb_av] MEDEN T ([facility]) Body height 62.75 [in_i] 62.75 [in_i] MEDENT ([facility]) 5'2.75" Heart rate 104 /min 104 /min [facility] Diastolic blood pressure 84 mm[Hg] 84 mm[Hg] [facility] ([facility]) Systolic blood pressure 136 mm[Hg] 136 mm[Hg] [facility] Diastolic blood pressure 80 mm[Hg] 80 mm[Hg] [facility] ([facility]) RT Arm Systolic blood pressure 142 mm[Hg] 142 mm[Hg] M [facility] ([facility]) RT Arm Body surface area Derived from formula 1.77 m2 1.77 m2 [facility] ([facility]) Body weight 73.937 kg 73.937 kg [facility] ([facility]) Advance body weight 115 [lb_av] 115 [lb_av] MEDEN T ([facility]) Body mass index (BMI) [Ratio] 28.9 kg/m2 28.9 k g/m2 [facility] ([facility]) Body weight 163.00 [lb_av] 163.00 [lb_av] MEDEN T ([facility]) Body height 63 [in_i] 63 [in_i] [facility] ([facility]) 5'3" Body mass index (BMI) [Ratio] 29.1 kg/m2 29.1 k g/m2 MED[facility] ([facility]) Body weight 163.00 [lb_av] 163.00 [lb_av] MEDEN T ([facility]) verbal Body height 62.75 [in_i] 62.75 [in_i] MED[facility] ([facility]) 5'2.75" Heart rate 96 /min 96 /min MED[facility] ([facility]) Diastolic blood pressure 74 mm[Hg] 74 mm[Hg] [facility] ([facility]) RT Arm Systolic blood pressure 122 mm[Hg] 122 mm[Hg] [facility]) RT Arm Advance body weight 115 [lb_av] 115 [lb_av] MEDEN T ([facility]) Body mass index (BMI) [Ratio] 30.3 kg/m2 30.3 k g/m2 MEDENT ([facility]) Body weight 171.00 [lb_av] 171.00 [lb_av] MEDEN T ([facility]) Body height 63 [in_i] 63 [in_i] [facility] ([facility]) 5'3" Respiratory rate 12 /min 12 /min [facility] ( [facility]) Body mass index (BMI) [Ratio] 28.7 kg/m2 28.7 k g/m2 MED[facility] ([facility]) Body weight 161.00 [lb_av] 161.00 [lb_av] MEDEN T ([facility]) Body height 62.75 [in_i] 62.75 [in_i] MED[facility] ([facility]) 5'2.75" Heart rate 98 /min 98 /min MED[facility] ([facility]) Diastolic blood pressure 74 mm[Hg] 74 mm[Hg] [facility] ([facility]) Systolic blood pressure 146 mm[Hg] 146 mm[Hg] [facility] Body surface area Derived from formula 1.80 m2 1.80 m2 MED[facility] ([facility]) Body weight 76.205 kg 76.205 kg [facility] ([facility]) Advance body weight 115 [lb_av] 115 [lb_av] MEDEN T ([facility]) Body mass index (BMI) [Ratio] 29.8 kg/m2 29.8 k g/m2 [facility] ([facility]) Body weight 168.00 [lb_av] 168.00 [lb_av] MEDEN T ([facility]) Body height 63 [in_i] 63 [in_i] [facility] ([facility]) 5'3" Oxygen saturation in Arterial blood by Pulse oximetry 95 % 95 % [facility] ([facility]) Room Air Heart rate 94 /min 94 /min [facility] ([facility]) Diastolic blood pressure 78 mm[Hg] 78 mm[Hg] [facility] ([facility]) Systolic blood pressure 120 mm[Hg] 120 mm[Hg] [facility] ([facility]) Body mass index (BMI) [Ratio] 30.3 kg/m2 30.3 k g/m2 [facility] ([facility]) Body weight 169.50 [lb_av] 169.50 [lb_av] MEDEN T ([facility]) Body height 62.75 [in_i] 62.75 [in_i] [facility] 5'2.75" Heart rate 88 /min 88 /min [facility] ([facility]) Diastolic blood pressure 60 mm[Hg] 60 mm[Hg] [facility] ([facility]) RT Arm Systolic blood pressure 122 mm[Hg] 122 mm[Hg] [facility] ([facility]) RT Arm Body mass index (BMI) [Ratio] 30.9 kg/m2 30.9 k g/m2 [facility] ([facility]) Body weight 173.00 [lb_av] 173.00 [lb_av] MEDEN T ([facility]) Body height 62.75 [in_i] 62.75 [in_i] [facility] 5'2.75" Heart rate 80 /min 80 /min [facility] ([facility]) Diastolic blood pressure 74 mm[Hg] 74 mm[Hg] [facility] ([facility]) RT Arm Systolic blood pressure 166 mm[Hg] 166 mm[Hg] [facility]) RT Arm Advance body weight 115 [lb_av] 115 [lb_av] [facility] ([facility]) Body mass index (BMI) [Ratio] 3.0 kg/m2 3.0 kg /m2 [facility] ([facility]) Body weight 17.00 [lb_av] 17.00 [lb_av] [facility] ([facility]) Body height 63 [in_i] 63 [in_i] [facility] ([facility]) 5'3" Respiratory rate 12 /min 12 /min [facility] ( [facility]) Body mass index (BMI) [Ratio] 30.6 kg/m2 30.6 k g/m2 [facility] ([facility]) Body weight 171.50 [lb_av] 171.50 [lb_av] [facility] ([facility]) Body height 62.75 [in_i] 62.75 [in_i] [facility]) 5'2.75" Heart rate 88 /min 88 /min [facility] ([facility]) Diastolic blood pressure 80 mm[Hg] 80 mm[Hg] [facility] ([facility]) RT Arm Systolic blood pressure 136 mm[Hg] 136 mm[Hg] [facility] ([facility]) RT Arm Oxygen saturation in Arterial blood by Pulse oximetry 94 % 94 % [facility] ([facility]) Body weight 174.00 [lb_av] 174.00 [lb_av] [facility] ([facility]) Heart rate 86 /min 86 /min [facility]) Diastolic blood pressure 82 mm[Hg] 82 mm[Hg] [facility] ([facility]) Systolic blood pressure 138 mm[Hg] 138 mm[Hg] [facility] Body mass index (BMI) [Ratio] 31.1 kg/m2 31.1 k g/m2 [facility] ([facility]) Oxygen saturation in Arterial blood by Pulse oximetry --post exerci se 90 % 90 % [facility]) RM Air Body weight 174.25 [lb_av] 174.25 [lb_av] [facility] ([facility]) Body height 62.75 [in_i] 62.75 [in_i] [facility] ([facility]) 5'2.75" Heart rate 106 /min 106 /min [facility] ([facility]) Diastolic blood pressure--standing 62 mm[Hg] 6 2 mm[Hg] [facility] ([facility]) p-100 Systolic blood pressure--standing 138 mm[Hg] 13 8 mm[Hg] [facility] ([facility]) p-100 Diastolic blood pressure--sitting 84 mm[Hg] 84 mm[Hg] [facility] ([facility]) p88 Systolic blood pressure--sitting 148 mm[Hg] 148 mm[Hg] [facility] ([facility]) p88 Diastolic blood pressure--supine 82 mm[Hg] 82 mm[Hg] [facility] ([facility]) p85 Systolic blood pressure--supine 152 mm[Hg] 152 mm[Hg] [facility] ([facility]) p85 Body mass index (BMI) [Ratio] 30.9 kg/m2 30.9 k g/m2 [facility] ([facility]) Body weight 173.25 [lb_av] 173.25 [lb_av] [facility] ([facility]) Body height 62.75 [in_i] 62.75 [in_i] [facility] ([facility]) 5'2.75" Heart rate 80 /min 80 /min [facility] ([facility]) Diastolic blood pressure 88 mm[Hg] 88 mm[Hg] [facility] ([facility]) Systolic blood pressure 130 mm[Hg] 130 mm[Hg] [facility] ([facility]) Respiratory rate 20 /min 20 /min [facility] ( [facility]) room air, easy and unlabored Heart rate 85 /min 85 /min [facility] ([facility]) Diastolic blood pressure 82 mm[Hg] 82 mm[Hg] [facility] ([facility]) Systolic blood pressure 142 mm[Hg] 142 mm[Hg] [facility]) Oxygen saturation in Arterial blood by Pulse oximetry 98 % 98 % [facility] ([facility]) Respiratory rate 18 /min 18 /min [facility] ( [facility]) Body temperature 98.6 [degF] 98.6 [degF] [facility] ([facility]) Heart rate 91 /min 91 /min [facility] ([facility]) Diastolic blood pressure 81 mm[Hg] 81 mm[Hg] [facility] ([facility]) Systolic blood pressure 146 mm[Hg] 146 mm[Hg] [facility] ([facility]) Body mass index (BMI) [Ratio] 31.6 kg/m2 31.6 k g/m2 [facility] ([facility]) Body weight 177.25 [lb_av] 177.25 [lb_av] [facility] ([facility]) Body height 62.75 [in_i] 62.75 [in_i] [facility] ([facility]) 5'2.75" Heart rate 68 /min 68 /min [facility] ([facility]) Diastolic blood pressure 72 mm[Hg] 72 mm[Hg] [facility] ([facility]) Systolic blood pressure 142 mm[Hg] 142 mm[Hg] [facility] ([facility]) Diastolic blood pressure 82 mm[Hg] 82 mm[Hg] [facility] ([facility]) RT Arm Systolic blood pressure 168 mm[Hg] 168 mm[Hg] [facility] ([facility]) RT Arm Patient Treatment Plan of Care Planned Activity Planned Date Details Description Data Source (s) loteprednol etabonate 5 MG/ML Ophthalmic Suspension [L otemax] 11/08/2019 12:00:00 AM EST [place] (Ian Rajan MD [facility]) prednisolone acetate 10 MG/ML Ophthalmic Suspension [P red Forte] 01/27/2017 12:00:00 AM EDT [place] (Ian Rajan MD [facility])
[2020-12-25 21:59] LABS: HEMOGLOBIN 11.8 g/dl (12.0-15.5); MEAN CORPUSCULAR HEMOGLOBIN 32.2 pg (27.0-33.0); MEAN CORPUSCULAR HGB CONC 32.8 g/dl (32.0-36.5); MEAN CORPUSCULAR VOLUME 98.1 fl (80.0-96.0); PLATELET COUNT, AUTOMATED 324 10^3/uL (150-450); RED BLOOD COUNT 3.67 10^6/uL (4.00-5.40); WHITE BLOOD COUNT 5.5 10^3/uL (4.0-10.0)
[2020-12-25] MEDS ORDERED: PHENYLEPHRINE 1% NASAL DROP 30 ML ONE (22:15)
[2020-12-25] MEDS ORDERED: LIDOCAINE 4% TOPICAL SOLN 50 ML BTL TOP ONE (22:15)
[2020-12-25 22:28] LABS: BLOOD UREA NITROGEN 19 MG/DL (7-18); CALCIUM LEVEL 9.3 MG/DL (8.8-10.2); CARBON DIOXIDE LEVEL 25 MEQ/L (21-32); CHLORIDE LEVEL 103 MEQ/L (98-107); GLOMERULAR FILTRATION RATE > 60.0 (>32); GLUCOSE, FASTING 119 MG/DL (70-100); POTASSIUM SERUM 4.1 MEQ/L (3.5-5.1); SODIUM LEVEL 137 MEQ/L (136-145)
--- OUTSIDE RECORDS SUMMARY | 2020-12-25 23:30 | CCD ---
Author Author [facility] Organization [facility] Address Unknown Phone Unavailable Care Team Providers Care Ammonium Nitrate Neutralizer Name Role Phone PHONG JOYCE Unavailable Unavailable [place], Lorna PURCHASING ADMINISTRATOR Unavailable Unavailable [place], Lorna PURCHASING ADMINISTRATOR Unavailable Unavailable [place], Lrona PURCHASING ADMINISTRATOR Unavailable Unavailable [place], Lorna PURCHASING ADMINISTRATOR Unavailable Unavailable [place], Lorna PURCHASING ADMINISTRATOR Unavailable Unavailable [place], Lorna PURCHASING ADMINISTRATOR Unavailable Unavailable [place], Lorna PURCHASING ADMINISTRATOR Unavailable Unavailable [place], Lorna PURCHASING ADMINISTRATOR Unavailable Unavailable [place], Lorna PURCHASING ADMINISTRATOR Unavailable Unavailable [place], Lorna PURCHASING ADMINISTRATOR Unavailable Unavailable [place], Lorna PURCHASING ADMINISTRATOR Unavailable Unavailable [place], Lorna PURCHASING ADMINISTRATOR Unavailable Unavailable [place], Lorna PURCHASING ADMINISTRATOR Unavailable Unavailable [place], Lorna PURCHASING ADMINISTRATOR Unavailable Unavailable [place], Lorna PURCHASING ADMINISTRATOR Unavailable Unavailable Abl[place], Lorna PURCHASING ADMINISTRATOR Unavailable Unavailable [place], Lorna PURCHASING ADMINISTRATOR Unavailable Unavailable [place], Lorna PURCHASING ADMINISTRATOR Unavailable Unavailable [place], Lorna PURCHASING ADMINISTRATOR Unavailable Unavailable [place], Lorna PURCHASING ADMINISTRATOR Unavailable Unavailable [place], Lorna PURCHASING ADMINISTRATOR Unavailable Unavailable [place], Lorna PURCHASING ADMINISTRATOR Unavailable Unavailable [place], Lorna PURCHASING ADMINISTRATOR Unavailable Unavailable [place], Lorna PURCHASING ADMINISTRATOR Unavailable Unavailable [place], Lorna PURCHASING ADMINISTRATOR Unavailable Unavailable [place], Lorna PURCHASING ADMINISTRATOR Unavailable Unavailable [place], Lorna PURCHASING ADMINISTRATOR Unavailable Unavailable AzaliaJuan Ramon garcia MD Unavailable [...] Unavailable Dille, E Deanna DDS Unavailable Unavailable Leigh Ann BRITOEW DO [...] Ann BRITO DO Unavailable [phone] Jeff Dudely MD Unavailable Unavailable [place], Jeff DEE Unavailable Unavailable [place], Jeff DEE Unavailable Unavailable [place], Jeff DEE Unavailable Unavailable [place], Jeff DEE Unavailable Unavailable [place], Jeff DEE Unavailable Unavailable [place], Jeff DEE Unavailable Unavailable [place], Jeff DEE Unavailable Unavailable [place], Jeff DEE Unavailable Unavailable [place], Jeff MD Unavailable Unavailable [place], Jeff MD Unavailable Unavailable [place], Jeff MD Unavailable Unavailable [place], Jeff MD Unavailable Unavailable [place], Jeff MD Unavailable Unavailable [place], Jeff MD Unavailable Unavailable [place], Jeff MD Unavailable Unavailable [place], Jeff MD Unavailable Unavailable [place], Jeff MD Unavailable Unavailable [place], Jeff MD Unavailable Unavailable [place], Jeff MD Unavailable Unavailable [place], Jeff MD Unavailable Unavailable [place], Jeff MD Unavailable Unavailable [place], Jeff MD Unavailable Unavailable [place], Jeff MD Unavailable Unavailable [place], Jeff MD Unavailable Unavailable [place], Jeff MD Unavailable Unavailable [place], Jeff MD Unavailable Unavailable [place], Jeff MD Unavailable Unavailable RAMOS, M PATRICIA [...] O Jacquelyn DEE Unavailable Unavailable Ramsey O Jacqueyln DEE Unavailable Unavailable Ramsey O Jacquelyn DEE [...] is protected by Article 27-F of the [facility] Public Health law. If you continue you may have access to information: Regarding HIV / AIDS; Provided by facilities licensed or operated by the [facility] Office of Mental Health; or Provided by the [facility] Office for People With Developmental Disabilities. If such information is present, then the following [facility] mandated warning applies: This information has [...] law may result in a fine or long term sentence or both. A general authorization for the release of medical or other information is NOT sufficient authorization for further disc losure. Allergies and Adverse Reactions Type Description Substance Reaction Status Data Source(s ) Allergy to substance No Known Allergies No known allergies (situation ) LUCIA (Ian Rajan MD [facility]) Family History Family Member Name Family Member Gender Family Member Status Date o f Status Description Data Source(s) Unknown Male Problem MEDENT ([facility] () Unknown Unknown Problem MEDENT ([facility]) Unknown Male Problem MEDENT ([facility]) Unknown Male Problem MEDENT ([facility]) Unknown Female Problem MEDENT ([facility]) Encounters Encounter Providers Location Date Indications Data Source(s ) Outpatient Attender: Yakelin Russ 09:45:00 AM EST MEDENT ([facility] ) Office Visit Attender: Jeff Lombardo/Luis Enrique/Hood/Reind l 11/20/2020 08:20:00 AM EST MEDENT ([facility]) Outpatient Attender: Yakelin Russ 09:30:00 AM EST MEDENT ([facility] ) Outpatient Attender: Tyrell Lombardo/Luis Enrique/Hood/Re indl 11/10/2020 12:45:00 PM EST MEDENT ([facility]) Outpatient Attender: Yakelin Russ 09:00:00 AM EST MEDENT ([facility] ) Outpatient Attender: Jacquelyn Mustafa MD [facility] office [facility] 11/03/2020 12:15:00 PM EST MEDENT ([facility]) Outpatient Attender: Lorna Russ 12:40:00 PM EST MEDENT ([facility] ) Outpatient Attender: PATRICIA Lombardo/Luis Enrique/Hood/Rein dl 09/11/2020 08:30:00 AM EST MEDENT ([facility]) Outpatient Attender: Yakelin Russ 10:30:00 AM EST MEDENT ([facility] ) Outpatient Att[facility]: [facility] 09/04/2020 11:48:00 AM EDT [facility] Outpatient Attender: [facility] 08/18/2020 04:02:03 PM EDT [facility] Outpatient Attender: [facility] 07/21/2020 04:01:00 PM EDT [facility] Outpatient Attender: Yakelin Russ 01:30:00 PM EDT MEDENT ([facility] ) Office Visit Attender: Jacquelyn Mustafa MD Main office - [facility] 07/07/2020 09:00:00 AM EDT MEDENT ([facility]/03[facility] 04:28:02 PM EDT [facility] 07/03/2020 03:48:00 PM EDT [facility] 07/03/2020 02:34:00 PM EDT [facility] 07/03/2020 02:33:01 PM EDT [facility] Outpatient Attender: Yakelin Russ 10:45:00 AM EDT MEDENT ([facility] ) Outpatient Attender: JOSHUA Russ 0 06/27/2020 01:00:00 PM EDT MED[facility] ([facility] ) [facility] 06/12/2020 10:19:00 AM EDT [facility] Outpatient Attender: [facility] 06/06/2020 08:06:01 AM EDT [facility] Outpatient Attender: Deanna Murcia DDS [facility] 06/05/2020 11:45:04 A M EDT [facility] Outpatient Attender: Yakelin Russ 10:00:00 AM EDT MEDENT ([facility] ) Outpatient Attender: Deanna Murcia DDS [facility] 05/13/2020 03:08:01 P M EDT [facility] Outpatient Attender: Deanna Murcia DDS [facility] 05/08/2020 12:03:00 P M EDT [facility]: [facility] 05/08/2020 11:54:01 A M EDT [facility]: [facility] 05/08/2020 11:54:00 A M EDT [facility]: [facility] 05/08/2020 09:58:02 A M EDT [facility] Outpatient Attender: [facility]cia [facility]: Deanna Murcia DDS [facility] 05/08/2020 09:56:01 A EDT [facility] Outpatient Attender: Deanna Murcia DDS [facility] 05/08/2020 08:48:01 A M T [facility] Outpatient Attender: Yakelin Russ 01:00:00 PM EDT MEDENT ([facility] ) Outpatient Attender: Lorna Russ 11:20:00 AM EDT MED[facility] ([facility] ) Outpatient Attender: Deanna Murcia [facility] 12/28/2019 02:08:[address] [facility] Outpatient Attender: Yakelin Russ 01:00:00 PM EST MEDENT ([facility] ) [facility]: [facility] 11/30/[facility] 12:43:[address] [facility] Outpatient Attender: Deanna Murcia NANDO [facility] 11/30/2019 11:46:[address] [facility] Outpatient Attender: [facility] 11/30/2019 11:34:[address] [facility] Outpatient Attender: Deanna Murcia [facility] 11/30/2019 11:33:[address] [facility] Outpatient Attender: Deanna Murcia [facility] 11/30/2019 10:46:[address] [facility] Outpatient Attender: Deanna Murcia NANDO [facility]AT[facility] 11/30/2019 10:44:[address] [facility] Outpatient Attender: Deanna Murcia LISSShala [facility] 11/30/2019 09:40:[address] [facility] Outpatient<td ID="encounterTypeDescripti onID0">1 Year Follow-Up</td><td>Steven Brito DO</td><td>Ian Mora MD [facility]</td><td>11/08/2019</td><td><content ID="encounterDiagnosisID0-0">Macular Degeneration Nonexudative Bilateral Early Dry Stage</content>, <content ID="encounterDiagnosisID0-1">Posterior Vitreous Detachment Both Eyes</content>, <content ID="encounterDiagnosisID0-2">Dry Eye Syndrome Both Eyes</content>, <content ID="encounterDiagnosisID0-3">Pseudophakia</content>, <content ID="encounterDiagnosisID0-4">Conjunctiva Conjunctivochalasis</content></td> Attender: STEVEN Smith MD [facility] 11/08/2019 01:20:00 PM EST - 11/08/2019 02:39:00 PM EST Conjunctiva ConjunctivochalasisPseudophakiaPosterior Vitreous Detachment Both EyesMacular Degeneration Nonexudative Bilateral Early Dry StageDry Eye Syndrome Both Eyes LUCIA (Ian Rajan MD [facility]) Conjunctiva Conjunctivochalasis Pseudophakia Posterior Vitreous Detachment Both Eyes Macular Degeneration Nonexudative Bilate ral Early Dry Stage Dry Eye Syndrome Both Eyes Immunizations Vaccine Date Status Description Data Source(s) Influenza, injectable, MDCK, preservative free, stephanie valent 07/21/2020 01:30:00 PM EDT completed [facility] Medications Medication Brand Name Start Date Product Form Dose Route Admi nistrative Instructions Pharmacy Instructions Status Indications Reaction Description Data Source(s) 8 HR Acetaminophen 650 MG Extended Release Oral Tablet [Tylenol] Tylenol 8 Hour Arthritis Pain 12/09/2020 12:00:00 AM EST active MED[facility] ([facility]) gabapentin 400 MG Oral Capsule Gabapentin 12/09/2020 12:00:00 AM EST ORAL active [facility] ([facility]) Losartan Potassium 50 MG Oral Tablet Losartan Potassium 12/2020 12:00:00 AM EST ORAL active [facility] ([facility]) Sinus Rinse Bottle Kit 12/05/2020 12:00:00 AM EST active MEDENT ([facility] ) Bacitracin 0.5 UNT/MG / Polymyxin B 10 UNT/MG Topical Ointment [Polysporin] Polysporin 12/05/2020 12:00:00 AM EST active MEDENT ([facility], ) Sodium Chloride 0.111 MEQ/ML Nasal Solution Saline Mist Spra y 11/11/2020 12:00:00 AM EST active M EDENT ([facility], ) Amoxicillin 875 MG / Clavulanate 125 MG Oral Tablet Am oxicillin/Clavulanate Potassium 11/05/2020 12:00:00 AM EST completed MEDENT ([facility]) Aspirin 81 MG Delayed Release Oral Tablet Aspirin 81 2019 12:00:00 AM EST ORAL active MED[facility] ( [facility]) Super B Complex/Vitamin C 09/24/2020 12:00:00 AM EST ORA L completed MEDENT ([facility] ) Cholecalciferol 2000 UNT Oral Tablet Vitamin D 09/15/2020 12:00:00 A M EST ORAL active [facility] ([facility]) clopidogrel 75 MG Oral Tablet Clopidogrel Bisulfate 07/25/2020 1 2:00:00 AM EDT active MEDENT ( [facility] ) Administration Of Flu Vaccine 07/21/2020 12:00:00 AM EDT completed [facility] ([facility]) Medication administered onsite Alendronic acid 70 MG Oral Tablet Alendronate Sodium 04/18/2020 12:00:00 AM EDT active MEDENT ( [facility]) duloxetine 30 MG Delayed Release Oral Capsule Duloxetine HCL 03/21/2020 12:00:00 AM EDT ORAL active MED[facility] ([facility]) Bupropion Hydrochloride 75 MG Oral Tablet Bupropion HCL 12/27/2019 12:00:00 AM EST ORAL completed MEDENT ([facility]) loteprednol etabonate 5 MG/ML Ophthalmic Suspension [Lotemax] Lotemax 0.5% Ophthalmic Suspension Lotemax 0.5% Ophthalmic Suspension 11/08/2019 12:00:00 AM EST active lotepred nol etabonate 5 MG/ML Ophthalmic Suspension [Lotemax] LUCIA (Ian Rajan MD [facility]) prednisolone acetate 10 MG/ML Ophthalmic Suspension [Pred Forte] Pred Forte 1% Ophthalmic Suspension Pred Forte 1% Ophthalmic Suspension 01/27/2017 12:00:0 0 AM EDT aborted predniso lone acetate 10 MG/ML Ophthalmic Suspension [Pred Forte] LUCIA (Ian Rajan MD [facility]) Insurance Providers Payer name Policy type / Coverage type Policy ID Covered green party ID Covered green party's relationship to rossi Policy Rossi Plan Information EMEDNY [id number] SP [id number] MEDICARE [id number] SP [id number] [employer] [place] O [id number] S [id number] MEDICARE C [id number] S [id number] MEDICAID M [id number] S [id number] Medicare P [id number] S [id number] Medicaid S [id number] S [id number] Medicare Part B [facility] Other 0 Se lf 0 MEDICAID [id number] SP [id number] [employer] [place] Medigap Part B [id number] Self [id number] Medicaid Medigap Part B [id number] Self [id number] 49U Globe Life Ins Medigap Part B [id number] Self [id number] Medicare Natl Govt Servic Medicare Primary [id number] Self [id number] [employer] [place] Medigap Part B [id number] Self [id number] Medicaid Medigap Part B [id number] Self [id number] 49U Globe Life Ins Medigap Part B [id number] Self [id number] Medicare Natl Govt Servic Medicare Primary [id number] Self [id number] [place] [id number] SP [id number] [employer] [place] Medigap Part B [id number] Self [id number] Medicaid Medigap Part B [id number] Self [id number] 49U [employer] Life Ins Medigap Part B [id number] Self [id number] Medicare Natl Govt Servic Medicare Primary [id number] Self [id number] [employer] [place] Medigap Part B [id number] Self [id number] Medicaid Medigap Part B [id number] Self [id number] 49U [employer] Life Ins Medigap Part B [id number] Self [id number] Medicare Natl Govt Servic Medicare Primary [id number] Self [id number] [employer] [place] Medigap Part B [id number] Self [id number] Medicaid Medigap Part B [id number] Self FY384 49U [employer] Life Ins Medigap Part B [id number] Self [id number] Medicare Natl Govt Servic Medicare Primary [id number] Self [id number] [employer] [place] Medigap Part B [id number] Self [id number] Medicaid Medigap Part B [id number] Self [id number] 49U [employer] Ins Medigap Part B [id number] Self [id number] Medicare Natl Govt Servic Medicare Primary [id number] Self [id number] Medicare P [id number] S [id number] [place] [id number] SP [id number] [employer] [place] Medigap Part B [id number] Self [id number] Medicaid Medigap Part B [id number] Self [id number] 49U [employer] Ins Medigap Part B [id number] Self [id number] Medicare Natl Govt Servic Medicare Primary [id number] Self [id number] [place] [id number] SP [id number] [facility] [id number] SP [id number] [facility] GE PART A [id number] SP [id number] [employer] [place] Medigap Part B [id number] Self [id number] Medicaid Medigap Part B [id number] Self FY384 49U [employer] Ins Medigap Part B [id number] Self [id number] Medicare Natl Govt Servic Medicare Primary [id number] Self [id number] [employer] [place] Medigap Part B [id number] Self [id number] Medicaid Medigap Part B [id number] Self [id number] 49U [employer] Ins Medigap Part B [id number] Self [id number] Medicare Natl Govt Servic Medicare Primary [id number] Self [id number] [place] Medigap Part B [id number] Self [id number] Medicaid Medigap Part B [id number] Self FY384 49U [employer] Ins Medigap Part B [id number] Self [id number] Medicare Natl Govt Servic Medicare Primary [id number] Self [id number] [employer] [place] Medigap Part B [id number] Self [id number] Medicaid Medigap Part B [id number] Self FY384 49U [employer] Ins Medigap Part B [id number] Self [id number] Medicare Natl Govt Servic Medicare Primary [id number] Self [id number] MEDICAID [id number] SP [id number] [employer] [place] Medigap Part B [id number] Self [id number] Medicaid Medigap Part B [id number] Self FY384 49U [employer] Life Ins Medigap Part B [id number] Self [id number] Medicare Natl Govt Servic Medicare Primary [id number] Self [id number] [employer] [place] Medigap Part B [id number] Self [id number] Medicaid Medigap Part B [id number] Self [id number] 49U [employer] Life Ins Medigap Part B [id number] Self [id number] Medicare Natl Govt Servic Medicare Primary [id number] Self [id number] [employer] [place] Medigap Part B [id number] Self [id number] Medicaid Medigap Part B [id number] Self [id number] 49U [employer] Life Ins Medigap Part B [id number] Self [id number] Medicare Natl Govt Servic Medicare Primary [id number] Self [id number] Medicare P [id number] S [id number] Medicare P [id number] S [id number] D Medicaid [facility]SC Healthcare S D [id number] SELF [id number] Medicare C [id number] SELF [id number] K27 DME Jurisdiction A [facility] C [id number] SELF [id number] Medicaid CSC Healthcare S D [id number] SELF [id number] Medicare C [id number] SELF [id number] [employer] [place] Medigap Part B [id number] Self [id number] Medicaid Medigap Part B [id number] Self [id number] 49U [employer] Ins Medigap Part B [id number] Self [id number] Medicare Natl Govt Servic Medicare Primary [id number] Self [id number] MEDICARE [id number] SP [id number] D [place] Progressive (pr) Medigap Part B [id number] Self [id number] First [employer] [place](pr) Medigap Part B [id number] Self [id number] First [employer](pr) Medigap Part B [id number] Self [id number] Medicare Dme Supplies Medigap Part B [id number] Self [id number] Medicaid [place] Medigap Part B [id number] Self [id number] [employer] Life Ins (pr) Medigap Part B [id number] Self [id number] [place] [id number] Self [id number] Medicare Dme Medigap Part B [id number] Self [id number] Medicaid Medicaid [id number] Self [id number] Global Insurance Commercial [id number] Self [id number] Medicare Medicare Primary [id number] Self [id number] [employer] [place] Medigap Part B [id number] Self [id number] Medicaid Medigap Part B [id number] Self [id number] 49U [employer] Life Ins Medigap Part B [id number] Self [id number] Medicare Natl Govt Servic Medicare Primary [id number] Self [id number] Medicaid Medicaid [id number] Self [id number] Global Insurance Commercial [id number] Self [id number] Medicare Medicare Primary [id number] Self [id number] First [employer] [place] Medigap Part B [id number] Self [id number] Medicaid Medigap Part B [id number] Self [id number] 49U Globe Life Ins Medigap Part B [id number] Self [id number] Medicare Natl Govt Servic Medicare Primary [id number] Self [id number] First [employer] [place] Medigap Part B [id number] Self [id number] Medicaid Medigap Part B [id number] Self [id number] 49U [employer] Ins Medigap Part B [id number] Self [id number] Medicare Natl Govt Servic Medicare Primary [id number] Self [id number] [employer] [place] O [id number] S [id number] MEDICARE C [id number] S [id number] First [place] Medigap Part B [id number] Self [id number] Medicaid Medigap Part B [id number] Self FY384 49U [employer] Life Ins Medigap Part B [id number] Self [id number] Medicare Natl Govt Servic Medicare Primary [id number] Self [id number] First [employer] [place] Medigap Part B [id number] Self [id number] Medicaid Medigap Part B [id number] Self [id number] 49U [employer] Life Ins Medigap Part B [id number] Self [id number] Medicare Natl Govt Servic Medicare Primary [id number] Self [id number] Medicaid Medicaid [id number] Self [id number] Global Insurance Commercial [id number] Self [id number] Medicare Medicare Primary [id number] Self [id number] First [employer] [place] Medigap Part B [id number] Self [id number] Medicaid Medigap Part B [id number] Self [id number] 49U [employer] Life Ins Medigap Part B [id number] Self [id number] Medicare Natl Govt Servic Medicare Primary [id number] Self [id number] Medicaid Medicaid [id number] Self [id number] Global Insurance Commercial [id number] Self [id number] Medicare Medicare Primary [id number] Self [id number] First [employer] [place] Medigap Part B [id number] Self [id number] Medicaid Medigap Part B [id number] Self [id number] 49U [employer] Ins Medigap Part B [id number] Self [id number] Medicare Natl Govt Servic Medicare Primary [id number] Self [id number] First [employer] [place] Medigap Part B [id number] Self [id number] Medicaid Medigap Part B [id number] Self [id number] 49U [employer] Ins Medigap Part B [id number] Self [id number] Medicare Natl Govt Servic Medicare Primary [id number] Self [id number] First [employer] [place] Medigap Part B [id number] Self [id number] Medicaid Medigap Part B [id number] Self [id number] [id number] [employer] Life Ins Medigap Part B [id number] Self [id number] Medicare Natl Govt Servic Medicare Primary [id number] Self [id number] [place] Progressive (pr) Medigap Part B [id number] Self [id number] First [employer] [place](pr) Medigap Part B [id number] Self [id number] First [employer] [place](pr) Medigap Part B [id number] Self [id number] Medicare Dme Supplies Medigap Part B [id number] Self [id number] Medicaid [place] Medig[place] Part B [id number] Self FY3 [id number] [employer] (pr) Medigap Part B [id number] Self [id number] [place] Primary [id number] Self [id number] First [employer] [place] Medigap Part B [id number] Self [id number] Medicaid Medigap Part B [id number] Self [id number] 49U [employer] Life Ins Medigap Part B [id number] Self [id number] Medicare Natl Govt Servic Medicare Primary [id number] Self [id number] [employer] Progressive (pr) Medigap Part B [id number] Self [id number] First [employer] [place](pr) Medigap Part B [id number] Self [id number] First [employer] [place](pr) Medigap Part B [id number] Self [id number] Medicare Dme Supplies Medigap Part B [id number] Self [id number] [place] Medig[place] Part B [id number] Self FY3 [id number] [employer] (pr) Medigap Part B [id number] Self [id number] [place] Primary [id number] Self [id number] [employer] [place] [id number] SP [id number] MEDICARE [id number] SP [id number] First [employer] [place] Medigap Part B [id number] Self [id number] Medicaid Medigap Part B [id number] Self [id number] 49U [employer] Life Ins Medigap Part B [id number] Self [id number] Medicare Natl Govt Servic Medicare Primary [id number] Self [id number] Medicare P UNAVAILABLE S UNAVAILA BLE Medicaid S [id number] S [id number] First [employer] [place] Medigap Part B [id number] Self [id number] Medicaid Medigap Part B [id number] Self FY384 49U [employer] Ins Medigap Part B [id number] Self [id number] Medicare Natl Govt Servic Medicare Primary [id number] Self [id number] Medicaid Medicaid [id number] Self [id number] Medicare Medicare Primary [id number] Self [id number] First [employer] [place] Medigap Part B [id number] Self [id number] Medicaid Medigap Part B [id number] Self [id number] [employer] Ins Medigap Part B [id number] Self [id number] Medicare Natl Govt Servic Medicare Primary [id number] Self [id number] [place] Progressive (pr) Medigap Part B [id number] Self [id number] First [employer] [place](pr) Medigap Part B [id number] Self [id number] First [employer] [place](pr) Medigap Part B [id number] Self [id number] Medicare Dme Supplies Medigap Part B [id number] Self [id number] [place] Medigap Part B [id number] Self FY3 [id number] [employer] Life Ins (pr) Medigap Part B [id number] Self [id number] Medicare [facility] Medicare Primary [id number] Self [id number] [employer] (pr) Medigap Part B [id number] Self [id number] [employer](pr) Medigap Part B [id number] Self [id number] [employer](pr) Medigap Part B [id number] Self [id number] Medicare Dme Supplies Medigap Part B [id number] Self [id number] [place] Med[place] B [id number] Self [id number] [employer] [place] Medigap Part B [id number] Self [id number] Medicare [facility] Medicare Primary [id number] Self [id number] First United [place] Medigap Part B [id number] Self [id number] [employer] Ins Medigap Part B [id number] Self [id number] [place] Govt Servic Medicare Primary [id number] Self [id number] First United [place] Medigap Part B [id number] Self [id number] [employer] Ins Medigap Part B [id number] Self [id number] Medicare [place] Govt Servic Medicare Primary [id number] Self [id number] [employer] [place] Commercial [id number] Self [id number] Medicare [facility] Medicare Primary [id number] Self [id number] First [employer] [place] Medigap Part B [id number] Self [id number] Medicare [place] Govt Servic Medicare Primary [id number] Self [id number] [employer] [place] Commercial [id number] Self [id number] [place] Medicare Primary [id number] Self [id number] First United [place] Medigap Part B Self Medicare [place] Govt Servic Medicare Primary Self MEDICARE [id number] SP [id number] D [facility] GE PART A [id number] SP [id number] SELF PAY UNAVAILABLE UNAVAILA BLE Medicare Dme Supplies Medigap Part B Self [employer] Progressive (pr) Medigap Part B Self [employer](pr) Medigap Part B Self [employer](pr) Medigap Part B Self [place] Primary Self [employer] [id number] SP [id number] [employer] [place] Medigap Part B Self [place] Primary Self [id number] Problems, Conditions, and Diagnoses Code Display Name Description Problem Type Effective Dates Data Source(s) 679321533 Disease caused by 2019-nCoV Disease caused by 2019-nCo V Problem 11/04/2020 12:00:00 AM EST MARKUS ([facility]) K05.313 Chronic periodontitis, localized, severe Chronic periodontitis, localized, severe 05/08/2020 11:53:41 AM EDT [facility] 525.9 Dental disorder Dental disorder 11/30/2019 11:3 2:10 AM EST [facility] [id number] Conjunctivochalasis (disorder) Conjunctiva Conju nctivochalasis Problem 11/15/2019 12:00:00 AM EST LUCIA (Ian chowdhury MD [facility]) Surgeries/Procedures Procedure Description Date Indications Data Source(s) ELECTROENCEPHALOGRAM W/REC AWAKE&ASLEEP 08/18/2020 12: 00:00 AM EDT [facility] ([facility]) ELECTROENCEPHALOGRAM W/REC AWAKE&ASLEEP 08/18/2020 12: 00:00 AM EDT [facility] ([facility] ) Needle electromyography, each extremity, with related paraspinal areas, when performed, done with nerve conduction, amplitude and latency/velocity study; complete, five or more muscles studied, innervated by three or more nerves or four or more spinal levels (list separately in addition to the code for primary procedure). 07/23/2020 12:00:00 AM EDT LETY Alexanedr ([facility] ) 11808 Nerve conduction studies 5-6 studies NEW 201207/23/2020 12:00:00 AM EDT [facility] ([facility] ) Magnetic Resonance Angiogtaphy Head W/O Contrast Material(S) 07/18/2020 12:00:00 AM EDT [facility] ([facility] ) Magnetic Resonance Angiogtaphy Head W/O Contrast Material(S) 07/18/2020 12:00:00 AM EDT [facility] ([facility] ) Magnetic Resonance Angiography Neck W/O Contrast Materials 07/18/2020 12:00:00 AM EDT [facility] ([facility] ) Magnetic Resonance Angiography Neck W/O Contrast Materials 07/18/2020 12:00:00 AM EDT [facility] ([facility] ) MRI BRAIN BRAIN STEM W/O CONTRAST MATERIAL 07/18/2020 12:00:00 AM EDT [facility] ([facility] ) MRI BRAIN BRAIN STEM W/O CONTRAST MATERIAL 07/18/2020 12:00:00 AM EDT [facility] ([facility] ) MRI SPINAL CANAL LUMBAR W/O CONTRAST MATERIAL 07/18/20 20 12:00:00 AM EDT [facility] ([facility] ) MRI SPINAL CANAL LUMBAR W/O CONTRAST MATERIAL 07/18/20 20 12:00:00 AM EDT [facility] ([facility] ) TSTG ANS FUNCJ CARDIOVAGAL INNERVAJ PARASYMP 0 12:00:00 AM EDT [facility] ([facility] ) TSTG ANS FUNCJ CARDIOVAGAL INNERVAJ PARASYMP 0 12:00:00 AM EDT [facility] ([facility] ) TESTING AUTONOMIC NERVOUS SYSTEM FUNCTION 07/09/2020 1 2:00:00 AM EDT [facility] ([facility] ) TESTING AUTONOMIC NERVOUS SYSTEM FUNCTION 07/09/2020 1 2:00:00 AM EDT [facility] ([facility] ) NON-INVASIVE PHYSIOLOGIC STUDY EXTREMITY 3 LEVLS 07/09 12:00:00 AM EDT [facility] ([facility] ) ECG ROUTINE ECG W/LEAST 12 LDS W/I&R 05/26/2020 12:00: 00 AM EDT [facility] ([facility]) Brief Emotional/Behav Assessment W/ Scoring Doc Per Standard Inst 04/17/2020 12:00:00 AM EDT [facility] ([facility] ) Brief Emotional/Behav Assessment W/ Scoring Doc Per Standard [facility] 12/27/2019 12:00:00 AM EST [facility] ([facility] ) Comprehensive eye exam established patient Comprehensi ve eye exam established patient 11/08/2019 12:00:00 AM EST LUCIA (Reji margie Rajan MD [facility]) Results ID Date Data Source [id number] 12/22/2020 09:00:00 AM EST [facility] Name Value Range Interpretation Code Description Data Maggi rce(s) Supporting Document(s) SARS coronavirus 2 RNA Not Detected [facility] [place] This lab was ordered by [facility] and reported by [facility]. ID Date Data Source [id number] 12/15/2020 06:33:00 AM EST [facility] Name Value Range Interpretation Code Description Data Maggi rce(s) Supporting Document(s) SARS coronavirus 2 RNA Not Detected [facility] [place] This lab was ordered by [facility] and reported by [facility]. ID Date Data Source [id number] 12/09/2020 10:09:00 AM EST [facility] ([facility]) Name Value Range Interpretation Code Description Data Maggi rce(s) Supporting Document(s) Thyrotropin [Units/volume] in Serum or Plasma by Detec tion limit <= 0.05 mIU/L 2.16 uIU/mL 0.36-3.74 [facility] ([facility] ) ID Date Data Source [id number] 12/09/2020 10:09:00 AM EST [facility] ([facility]) Name Value Range Interpretation Code Description Data Maggi rce(s) Supporting Document(s) Glucose [Mass/volume] in Serum or Plasma 92 mg/dL 74-99 [facility] ([facility]) 100-125 mg/dL PRE-DIABETES/FASTING >126 mg/dL DIABETES/FASTING Sodium [Moles/volume] in Serum or Plasma 140 meq/L 136-145 [facility] ([facility]) Creatinine 0.9 mg/dL 0.6-1.3 [facility] Urea nitrogen [Mass/volume] in Serum or Plasma 18 mg/dL 7-18 [facility] Chloride [Moles/volume] in Serum or Plasma 102 meq/L 98-107 [facility] Carbon dioxide, total [Moles/volume] in Serum or Plasma 27 meq/L 21 -32 [facility] Potassium [Moles/volume] in Serum or Plasma 4.1 meq/L 3.5-5.1 [facility] Glomerular filtration rate/1.73 sq M pre dicted among non-blacks [Volume Rate/Area] in Serum or Plasma by Creatinine-based formula (MDRD) 60 mL/min [facility] Calcium [Mass/volume] in Serum or Plasma 9.5 mg/dL 8.5-10.1 [facility] ([facility]) Glomerular filtration rate/1.73 sq M pre dicted among blacks [Volume Rate/Area] in Serum or Plasma by Creatinine-based formula (MDRD) Laboratory test result [facility] ([facility]) <content>CHRONIC KIDNEY DISEASE STAGING PER NKF</content>
<content></content>
<content>STAGE I & II GFR >= 60 NORMAL TO MILDLY DECREASED</content>
<content>STAGE III GFR 30-59 MODERATELY DECREASED</content>
<content>STAGE IV GFR 15-29 SEVERELY DECREASED</content>
<content>STAGE V GFR <15 VERY LITTLE GFR LEFT</content>
<content>ESRD GFR <15 ON MARKETING PROPOSAL COORDINATOR</content>
<content></content> ID Date Data Source [id number] 12/09/2020 10:09:00 AM EST [facility] Name Value Range Interpretation Code Description Data Maggi rce(s) Supporting Document(s) Erythrocytes [#/volume] in Blood by Automated count 3.33 x10*6/UL 4.2 0-6.30 [facility] Leukocytes [#/volume] in Blood by Automated count 6.1 x10*3/UL 4.1-10 .9 [facility] MCV 95.0 fL 80.0-97.0 [facility] [place] [facility] Hematocrit [Volume Fraction] of Blood by Automated count 31.6 % 3 7.0-51.0 [facility] ([facility]) Hemoglobin [Mass/volume] in Blood 11.2 g/dL 12.0-18.0 [facility] ([facility]) MCHC 35.6 g/dL 31.0-38.0 [facility] [facility] MCH 33.8 pg 26.0-32.0 [facility] [place] [facility] Platelets [#/volume] in Blood by Automated count 392 x10*3/UL 140-440 [facility] ([facility]) Erythrocyte distribution width [Ratio] by Automated count 14.0 % 11.6-13.7 [facility] ([facility]) MPV 7.1 FL 7.8-11.0 [facility] [place] [facility] Neut % 66.5 % 37.0-92.0 [facility] [facility] Lymph % 27.4 % 10.0-58.5 [facility] [place] [facility] Mid % 6.1 % 1.7-9.3 [facility] [place] [facility] Mid # 0.5 x10*3/UL 0.1-0.6 [facility] ([facility]) Lymph # 1.6 x10*3/UL 0.6-4.1 [facility] ([facility]) Neut # 4.0 x10*3/UL 2.0-7.8 [facility] ([facility]) ID Date Data Source [id number] 12/08/2020 08:00:00 AM EST [facility] Name Value Range Interpretation Code Description Data Maggi rce(s) Supporting Document(s) SARS coronavirus 2 RNA Not Detected [facility] [place] This lab was ordered by [facility] and reported by [facility]. ID Date Data Source [id number] 12/01/2020 08:00:00 AM EST [facility] Name Value Range Interpretation Code Description Data Maggi rce(s) Supporting Document(s) SARS coronavirus 2 RNA Not Detected [facility] [place] This lab was ordered by [facility] and reported by [facility]. ID Date Data Source [id number] 11/24/2020 11:00:00 AM EST [facility] Name Value Range Interpretation Code Description Data Maggi rce(s) Supporting Document(s) SARS coronavirus 2 RNA Not Detected [facility] [place] This lab was ordered by [facility] and reported by [facility]. ID Date Data Source [id number] 11/17/2020 06:00:00 AM EST [facility] Name Value Range Interpretation Code Description Data Maggi rce(s) Supporting Document(s) SARS coronavirus 2 RNA Not Detected [facility] [place] This lab was ordered by [facility] and reported by [facility]. ID Date Data Source [id number] 11/13/2020 07:57:00 PM EST [facility] Name Value Range Interpretation Code Description Data Maggi rce(s) Supporting Document(s) SARS-CoV-2 (COVID 19) NEGATIVE - SARS-CoV-2 (COVID19) [facility] This lab was ordered by [facility] a nd reported by [facility]. ID Date Data Source [id number] 11/12/2020 06:58:00 PM EST [facility] ([facility]) Name Value Range Interpretation Code Description Data Maggi rce(s) Supporting Document(s) AB Screen (Indirect Brionna)Vis Laboratory test result [facility] ([facility]) Blood Type Laboratory test result [facility] ([facility]) ID Date Data Source [id number] 11/12/2020 06:58:00 PM EST [facility] ([facility]) Name Value Range Interpretation Code Description Data Maggi rce(s) Supporting Document(s) Blood Urea Nitrogen 15 mg/dL 7-18 [facility] ([facility]) Creatinine For GFR 0.88 mg/dL 0.55-1.30 [facility] ([facility]) Glucose, Fasting 123 mg/dL 70-100 [facility] ([facility]) Sodium Level 137 meq/L 136-145 [facility] ([facility]) Glomerular Filtration Rate Laboratory test result [facility] ([facility]) <content>Units are mL/min/1.73 m2</content>
<content></content>
<content>Chronic Kidney Disease Staging per NKF:</content>
<content></content>
<content>Stage I & II GFR >=60 Normal to Mildly Decreased</content>
<content>Stage III GFR 30- 59 Moderately Decreased</content>
<content>Stage IV GFR 15-29 Severely Decreased</content>
<content>Stage V GFR <15 Very Little GFR Left</content>
<content>ESRD GFR <15 on MARKETING PROPOSAL COORDINATOR</content>
<content></content> Chloride Level 103 meq/L 98-107 [facility] ([facility]) Potassium Serum 3.8 meq/L 3.5-5.1 [facility] Carbon Dioxide Level 29 meq/L 21-32 [facility] ([facility]) Anion Gap 5 meq/L 8-16 [facility] [facility]) Calcium Level 9.2 mg/dL 8.8-10.2 [facility] ([facility]) ID Date Data Source [id number] 11/12/2020 06:58:00 PM EST [facility] ([facility]) Name Value Range Interpretation Code Description Data Maggi rce(s) Supporting Document(s) White Blood Count 6.3 10 4.0-10.0 [facility] ([facility]) Red Blood Count 3.43 10 4.00-5.40 [facility] Hematocrit 33.5 % 36.0-47.0 [facility]) Hemoglobin 10.9 g/dL 12.0-15.5 [facility]) Mean Corpuscular HGB Conc 32.5 g/dL 32.0-36.5 [facility] NT ([facility]) Mean Corpuscular Volume 97.7 fl 80.0-96.0 [facility] ([facility]) Mean Corpuscular Hemoglobin 31.8 pg 27.0-33.0 ME DENT ([facility]) Red Cell Distribution Width 12.6 % 11.5-14.5 [facility] ([facility]) Platelet Count, Automated 405 10 150-450 MED[facility] NT ([facility]) Neutrophils % 49.0 % 36.0-66.0 [facility] ([facility]) Mccone % 11.9 % 0.0-5.0 [facility] [place] [facility]) Eos % 5.7 % 0.0-3.0 [facility] [facility] Lymph % 32.3 % 24.0-44.0 [facility] ([place] [facility]) Immature Granulocyte % 0.3 % 0-3.0 [facility] ([facility]) Baso % 0.8 % 0.0-1.0 [facility] [facility]) Neutrophils # 3.1 10 1.5-8.5 [facility] ([facility]) Lymph # 2.0 10 1.5-5.0 [facility] [facility]) Nucleated Red Blood Cell % 0.0 % 0-0 MED ENT ([facility]) Eos # 0.4 10 0.0-0.5 [facility] [facility] Mccone # 0.8 10 0.0-0.8 [facility] [facility]) Baso # 0.1 10 0.0-0.2 [facility] ([place] [facility]) ID Date Data Source [id number] 11/12/2020 09:12:00 AM EST [facility] ([facility]) Name Value Range Interpretation Code Description Data Maggi rce(s) Supporting Document(s) aPTT in Blood by Coagulation assay 34.8 s 24.2-38.5 [facility] ([facility]) ID Date Data Source [id number] 11/12/2020 09:12:00 AM EST [facility] ([facility]) Name Value Range Interpretation Code Description Data Maggi rce(s) Supporting Document(s) Prothrombin Time 13.9 s 12.5-14.3 [facility] ([facility]) Inr 1.05 [facility] ([place] [facility]) THERAPUTIC HUMAN INR VALUES INDICATIONS NORMAL RANGES PROPHYLAXIS/TREATMENT OF: VENOUS THROMBOSIS 2.0-3.0 PULMONARY EMBOLISM 2.0-3.0 PREVENTION OF SYSTEMIC EMBOLISM FROM: TISSUE HEART VALVES 2.0-3.0 ACUTE MYOCARDIAL INFARCTION 2.0-3.0 VALVULAR HEART DISEASE 2.0-3.0 ATRIAL FIBRILLATION 2.0-3.0 MECHANICAL VALVES(HIGH RISK) 2.5-3.5 RECURRENT MYOCARDIAL INFARCTION 2.5-3.5 ID Date Data Source [id number] 11/12/2020 08:43:00 AM EST [facility] ([facility]) Name Value Range Interpretation Code Description Data Maggi rce(s) Supporting Document(s) White Blood Count 6.5 10 4.0-10.0 [facility] ([facility]) Red Blood Count 3.41 10 4.00-5.40 [facility] ([facility]) Hematocrit 33.5 % 36.0-47.0 [facility] ([place] [facility]) Mean Corpuscular Volume 98.2 fl 80.0-96.0 [facility] ([facility]) Hemoglobin 10.9 g/dL 12.0-15.5 [facility] ([facility]) Red Cell Distribution Width 12.5 % 11.5-14.5 ME [facility] ([facility]) Mean Corpuscular Hemoglobin 32.0 pg 27.0-33.0 ME [facility] ([facility]) Mean Corpuscular HGB Conc 32.5 g/dL 32.0-36.5 [facility] NT ([facility]) Neutrophils % 63.0 % 36.0-66.0 [facility] ([facility]) Platelet Count, Automated 398 10 150-450 MED[facility] NT ([facility]) Lymph % 21.0 % 24.0-44.0 [facility] ([place] [facility]) Baso % 0.5 % 0.0-1.0 [facility] ([place] [facility]) Mccone % 10.0 % 0.0-5.0 [facility] ([place] [facility]) Eos % 5.2 % 0.0-3.0 [facility] ([place] [facility]) Immature Granulocyte % 0.3 % 0-3.0 [facility] ([facility]) Nucleated Red Blood Cell % 0.0 % 0-0 [facility] ([facility]) Neutrophils # 4.1 10 1.5-8.5 [facility] ([facility]) Lymph # 1.4 10 1.5-5.0 [facility] [facility]) Eos # 0.3 10 0.0-0.5 [facility] ([place] [facility]) Mccone # 0.7 10 0.0-0.8 [facility] [facility] Baso # 0.0 10 0.0-0.2 [facility] ([place] [facility]) ID Date Data Source [id number] 11/10/2020 10:42:00 AM EST [facility] ([facility]) Name Value Range Interpretation Code Description Data Maggi rce(s) Supporting Document(s) Glucose [Mass/volume] in Serum or Plasma 117 mg/dL 74-99 [facility] ([facility]) 100-125 mg/dL PRE-DIABETES/FASTING >126 mg/dL DIABETES/FASTING Urea nitrogen [Mass/volume] in Serum or Plasma 17 mg/dL 7-18 [facility] ([facility]) Creatinine 0.9 mg/dL 0.6-1.3 [facility] ([facility]) Sodium [Moles/volume] in Serum or Plasma 135 meq/L 136-145 [facility] ([facility]) NOTE: RESULT VERIFIED. Potassium [Moles/volume] in Serum or Plasma 4.5 meq/L 3.5-5.1 [facility] ([facility]) Chloride [Moles/volume] in Serum or Plasma 100 meq/L 98-107 [facility] ([facility]) Calcium [Mass/volume] in Serum or Plasma 9.0 mg/dL 8.5-10.1 [facility] ([facility]) Carbon dioxide, total [Moles/volume] in Serum or Plasma 27 meq/L 21 -32 [facility] ([facility]) Glomerular filtration rate/1.73 sq M pre dicted among blacks [Volume Rate/Area] in Serum or Plasma by Creatinine-based formula (MDRD) Laboratory test result [facility] ([facility]) <content>CHRONIC KIDNEY DISEASE STAGING PER NKF</content>
<content></content>
<content>STAGE I & II GFR >= 60 NORMAL TO MILDLY DECREASED</content>
<content>STAGE III GFR 30-59 MODERATELY DECREASED</content>
<content>STAGE IV GFR 15-29 SEVERELY DECREASED</content>
<content>STAGE V GFR <15 VERY LITTLE GFR LEFT</content>
<content>ESRD GFR <15 ON MARKETING PROPOSAL COORDINATOR</content>
<content></content> Glomerular filtration rate/1.73 sq M pre dicted among non-blacks [Volume Rate/Area] in Serum or Plasma by Creatinine-based formula (MDRD) 60 mL/min [facility] ([facility]) ID Date Data Source [id number] 11/10/2020 10:42:00 AM EST [facility] ([facility]) Name Value Range Interpretation Code Description Data Maggi rce(s) Supporting Document(s) Leukocytes [#/volume] in Blood by Automated count 7.0 x10*3/UL 4.1-10 .9 [facility] ([facility]) Erythrocytes [#/volume] in Blood by Automated count 3.38 x10*6/UL 4.2 0-6.30 [facility] ([facility]) Hemoglobin [Mass/volume] in Blood 11.3 g/dL 12.0-18.0 [facility] ([facility]) Hematocrit [Volume Fraction] of Blood by Automated count 32.1 % 3 7.0-51.0 [facility] ([facility]) MCH 33.3 pg 26.0-32.0 [facility] [facility] MCHC 35.1 g/dL 31.0-38.0 [facility] [facility] MCV 94.9 fL 80.0-97.0 [facility] ([place] [facility]) Platelets [#/volume] in Blood by Automated count 419 x10*3/UL 140-440 [facility] [facility] Erythrocyte distribution width [Ratio] by Automated count 13.6 % 11.6-13.7 [facility] ([facility]) MPV 7.4 FL 7.8-11.0 [facility] ([place] [facility]) Mid % 4.3 % 1.7-9.3 [facility] ([place] [facility]) Neut % 80.5 % 37.0-92.0 [facility] ([place] [facility]) Lymph % 15.2 % 10.0-58.5 [facility] ([place] [facility]) Mid # 0.4 x10*3/UL 0.1-0.6 [facility] ([facility]) Lymph # 1.0 x10*3/UL 0.6-4.1 [facility] ([facility]) Neut # 5.6 x10*3/UL 2.0-7.8 [facility] ([facility]) ID Date Data Source [id number] 11/10/2020 07:48:00 AM EST [facility] Name Value Range Interpretation Code Description Data Maggi rce(s) Supporting Document(s) [facility] and reported by [facility]. ID Date Data Source [id number] 11/02/2020 11:30:00 AM EST [facility] Name Value Range Interpretation Code Description Data Maggi rce(s) Supporting Document(s) SARS coronavirus 2 RNA [Presence] in Res piratory specimen by BIA with probe detection [facility] This lab was ordered by [facility] a nd reported by [facility]. ID Date Data Source [id number] 10/26/2020 09:58:00 AM EST [facility] Name Value Range Interpretation Code Description Data Maggi rce(s) Supporting Document(s) SARS coronavirus 2 RNA [Presence] in Res piratory specimen by BIA with probe detection [facility] This lab was ordered by [facility] a nd reported by [facility]. ID Date Data Source [id number] 10/22/2020 07:32:00 PM EST [facility] Name Value Range Interpretation Code Description Data Maggi rce(s) Supporting Document(s) Respiratory pathogens identified [Type] in Nasopharynx by Probe and target amplification method [facility] This lab was ordered by [facility] a nd reported by [facility]. ID Date Data Source [id number] 10/22/2020 11:54:00 AM EST [facility] Name Value Range Interpretation Code Description Data Maggi rce(s) Supporting Document(s) SARS coronavirus 2 RNA [facility] This lab was ordered by [facility] and reported by [facility]. ID Date Data Source [id number] 10/22/2020 12:00:00 AM EST [facility] Name Value Range Interpretation Code Description Data Maggi rce(s) Supporting Document(s) SARS-CoV2 Rapid Antigen [facility] This lab was ordered by [facility] and reported by [facility]. ID Date Data Source [id number] 10/17/2020 02:46:00 PM EST [facility] Name Value Range Interpretation Code Description Data Maggi rce(s) Supporting Document(s) SARS coronavirus 2 RNA [facility] This lab was ordered by [facility] and reported by [facility]. ID Date Data Source [id number] 07/03/2020 03:49:53 PM EDT [facility] Current Problems: Chronic periodontitis, localized, severe (NHB69-H14.313)Dental disorder (ICD-525.9) (DYX20-U44.9)DENTAL BAHAI STATUS (ICD-V45.84) (PHE83-C17.811)Current Medications: AMOXICILLIN 500 MG CAPS (AMOXICILLIN) 1 [...] to OS for extraction of #20. DX:defective uatsdin with sym perio. P:refer to OSE-scribe Amoxicillin 500mg q8h until gone dispense 21 tabs zero refills and CHXInformed Pt about new pain management policy of the clinic regarding about narcotic,told pt to alternate Ibuprophen 600- 800mg and tylenol 500mg every 4 to 6 hrs for pain when needed. Assisted By: AM [place]: p/e.Zina Carrillo DMD by [facility] (07/03/2020 4:26 PM): Tooth Notes and Watches:- [...] Known Allergies (updated 06/05/2020) Orders:Oral Surgery Referral [CPT-[id number]] Name Value Range Interpretation Code Description Data Maggi rce(s) Supporting Document(s) ID Date Data Source [id number] 06/05/2020 09:43:35 AM EDT [facility] Patient History Medical History:There is 2 pages of paperworked scanned for her medical history and 3 pages scanned in for her medicines. High cholesterolHypertensionSpinal stenosisHypothyroidismSleep apneaPolyneuropathyGERDSpinal stenosisFamily History:Cancer - Breast (Mother)Heart disease (Father)Heart disease (Mother)Heart disease (Brother)Social/Personal History: Smoking Status: former smokerCurrent Problems: Chronic periodontitis, localized, severe (GUX53-T69.313)Dental disorder (ICD- 525.9) (JOM80-F39.9)DENTAL BAHAI STATUS (ICD-V45.84) (ICD10- Z98.811)Current Medications: CHLORHEXIDINE GLUCONATE [...] Hernandez) Chart Notes:phong (Jun 05 2020 11:44AM): [facility]). CC: none. Reviewed Xrays. Exam:caries on crown detected NR for now. OCS: WNL, IO/ EO completed, No significant hard findings upon clinical exam.Additional PPE requirements due to COVID-19 in the dental setting, N95, surgical mask, hair covering, gown and shieldPt was cooperative. OHI given Referral: N/A Smoothed #3 per Pt requestNV:recallViky Hernandez by phong (06/05/2020 11:44 AM): ; hunter (Jun 05 2020 10:56AM): [facility](-)cc-My upper right and left teeth have been [...] enough to fix yet. Sumi Delaney by [facility] (08/04/2017 4:38 PM): Sumi Barahona [...] rce(s) Supporting Document(s) ID Date Data Source [id number] 05/21/2020 07:20:00 PM EDT [facility] ([facility]) Name Value Range Interpretation Code Description Data Maggi rce(s) Supporting Document(s) Magnesium [Moles/volume] in Serum or Plasma 2.3 mg/dL 1.8-2.4 [facility] ([facility]) ID Date Data Source [id number] 05/21/2020 07:20:00 PM EDT [facility] ([facility]) Name Value Range Interpretation Code Description Data Maggi rce(s) Supporting Document(s) Glucose, Fasting 87 mg/dL 70-100 [facility] ([facility]) Blood Urea Nitrogen 17 mg/dL 7-18 [facility] ([facility]) Creatinine For GFR 0.96 mg/dL 0.55-1.30 [facility] ([facility]) Glomerular Filtration Rate 59.4 [facility] ([facility]) <content>Units are mL/min/1.73 m2</content>
<content></content>
<content>Chronic Kidney Disease Staging per NKF:</content>
<content></content>
<content>Stage I & II GFR >=60 Normal to Mildly Decreased</content>
<content>Stage III GFR 30- 59 Moderately Decreased</content>
<content>Stage IV GFR 15-29 Severely Decreased</content>
<content>Stage V GFR <15 Very Little GFR Left</content>
<content>ESRD GFR <15 on MARKETING PROPOSAL COORDINATOR</content>
<content></content> Potassium Serum 4.1 meq/L 3.5-5.1 [facility] ([facility]) Chloride Level 106 meq/L 98-107 [facility] ([facility]) Sodium Level 140 meq/L 136-145 [facility] ([facility]) Anion Gap 5 meq/L 8-16 [facility] ([facility]) Carbon Dioxide Level 29 meq/L 21-32 [facility] ([facility]) Calcium Level 9.0 mg/dL 8.8-10.2 [facility] ([facility]) ID Date Data Source [id number] 05/21/2020 07:20:00 PM [address] [facility] Name Value Range Interpretation Code Description Data Maggi rce(s) Supporting Document(s) CPK Creatine Phosphokinase 89 U/L 26-192 [facility] ([facility]) CK-MB Value Mass 2.5 ng/mL [facility] MB/CK Relative Index 2.81 [facility] ([facility]) <content>DIAGNOSIS CRITERIA</content>
<content>MMB ng/ml Relative Index (RI)</content>
<content>NON-AMI < or = 5 N/A</content>
<content>COSTA ZONE > 5 < or = 4</content>
<content>AMI > 5 > 4</content>
<content></content> Troponin I Laboratory [facility]) <content>Troponin I Reference Interval f or Siemens [place] LOCI:</content>
<content></content>
<content>99th Percentile= 0.00-0.045 ng/ml</content>
<content></content>
<content>Risk Stratification:</content>
<content><= 0.10 ng/ml Decreased Risk for Adverse Clinical</content>
<content>Events.</content>
<content>0.10-1.50 ng/ml Increased Risk for Adverse Clinical</content>
<content>Events. Evaluation of additional</content>
<content>criterion and/or repeat testing in 2-6</content>
<content>hours is suggested to rule out myocardial</content>
<content>damage.</content>
<content>>= 1.50 ng/ml Indicative of Myocardial Injury.</content>
<content></content> ID Date Data Source [id number] 05/21/2020 07:20:00 PM EDT [facility] Name Value Range Interpretation Code Description Data Mgagi rce(s) Supporting Document(s) Prothrombin Time 13.8 s 11.8-14.0 [facility] ([facility]) Inr 1.09 [facility]) THERAPUTIC HUMAN INR VALUES INDICATIONS NORMAL RANGES PROPHYLAXIS/TREATMENT OF: VENOUS THROMBOSIS 2.0-3.0 PULMONARY EMBOLISM 2.0-3.0 PREVENTION OF SYSTEMIC EMBOLISM FROM: TISSUE HEART VALVES 2.0-3.0 ACUTE MYOCARDIAL INFARCTION 2.0-3.0 VALVULAR HEART DISEASE 2.0-3.0 ATRIAL FIBRILLATION 2.0-3.0 MECHANICAL VALVES(HIGH RISK) 2.5-3.5 RECURRENT MYOCARDIAL INFARCTION 2.5-3.5 Partial Thromboplastin Time 34.3 s 25.0-38.4 [facility] ([facility]) ID Date Data Source [id number] 05/21/2020 06:15:00 PM EDT [facility]) Name Value Range Interpretation Code Description Data Maggi rce(s) Supporting Document(s) AB Screen (Indirect Br[place])Vis Laboratory test result [facility] ([facility]) Blood Type Laboratory test result [facility] ([facility]) ID Date Data Source [id number] 05/21/2020 06:15:00 PM EDT [facility] ([facility]) Name Value Range Interpretation Code Description Data Maggi rce(s) Supporting Document(s) White Blood Count 5.9 10 4.0-10.0 [facility] ([facility]) Red Blood Count 3.70 10 4.00-5.40 [facility] ([facility]) Hemoglobin 12.3 g/dL 12.0-15.5 [facility] ([facility]) Mean Corpuscular Volume 99.5 fl 80.0-96.0 [facility] ([facility]) Hematocrit 36.8 % 36.0-47.0 [facility] ([facility]) Mean Corpuscular Hemoglobin 33.2 pg 27.0-33.0 ME D[facility] ([facility]) Mean Corpuscular HGB Conc 33.4 g/dL 32.0-36.5 MED[facility] NT ([facility]) Red Cell Distribution Width 13.1 % 11.5-14.5 [facility] ([facility]) Platelet Count, Automated 295 10 150-450 [facility] NT ([facility]) Lymph % 36.0 % 24.0-44.0 [facility] Mccone % 10.4 % 0.0-5.0 [facility] ([facility]) Neutrophils % 45.7 % 36.0-66.0 [facility] ([facility]) Eos % 6.9 % 0.0-3.0 [facility] Baso % 0.8 % 0.0-1.0 [facility] ([facility]) Immature Granulocyte % 0.2 % 0-3.0 [facility] ([facility]) Nucleated Red Blood Cell % 0.0 % 0-0 [facility] ([facility]) Mccone # 0.6 10 0.0-0.8 [facility]) Neutrophils # 2.7 10 1.5-8.5 [facility] [facility]) Lymph # 2.1 10 1.5-5.0 [facility]) Baso # 0.1 10 0.0-0.2 [facility]) Eos # 0.4 10 0.0-0.5 [facility]) ID Date Data Source [id number] 05/08/2020 08:40:17 AM EDT [facility] Current Problems: Chronic periodontitis, localized, severe (IWM59-W48.313)Dental disorder (ICD-525.9) (KCM06-L50.9)DENTAL BAHAI STATUS (ICD-V45.84) (YOG14-B55.811)Problem list reviewed during this update.Current Medications: CHLORHEXIDINE [...] & Plan Problems:Added: Chronic periodontitis, localized, severe (JRW64-R75.313)Medications:CHLORHEXIDINE GLUCONATE 0.12 % SOLNSEE SCANNED 2 PAGESMedication Changes:New Prescription:CHLORHEXIDINE GLUCONATE 0.12 % SOLN- Rinse for 1 minute with 10mL before bed Qty: 1[Bottle] Refills: 0 Method: ElectronicAllergies:No Known Allergies (updated 05/08/2020) Name Value Range Interpretation Code Description Data Maggi rce(s) Supporting Document(s) ID Date Data Source [id number] 04/24/2020 12:00:00 AM EDT EDUARDAOH Name Value Range Interpretation Code Description Data Maggi rce(s) Supporting Document(s) 2019-nCoV N XXX Ql BIA N2 [facility] [place] This lab was [facility] and reported by DARY. ID Date Data Source [id number] 12/27/2019 02:37:00 PM EST [facility] ([facility]) Name Value Range Interpretation Code Description Data Maggi rce(s) Supporting Document(s) Thyrotropin [Units/volume] in Serum or Plasma by Detec tion limit <= 0.05 mIU/L 2.06 uIU/mL 0.36-3.74 [facility] ([facility] ) ID Date Data Source [id number] 12/27/2019 02:37:00 PM EST [facility] ([facility]) Name Value Range Interpretation Code Description Data Maggi rce(s) Supporting Document(s) Glucose [Mass/volume] in Serum or Plasma 93 mg/dL 74-99 [facility] ([facility]) 100-125 mg/dL PRE-DIABETES/FASTING >126 mg/dL DIABETES/FASTING Sodium [Moles/volume] in Serum or Plasma 140 meq/L 136-145 [facility] ([facility]) Urea nitrogen [Mass/volume] in Serum or Plasma 21 mg/dL 7-18 [facility] ([facility]) Creatinine 1.0 mg/dL 0.6-1.3 [facility]) Chloride [Moles/volume] in Serum or Plasma 103 meq/L 98-107 [facility] ([facility]) Potassium [Moles/volume] in Serum or Plasma 4.2 meq/L 3.5-5.1 [facility] ([facility]) Carbon dioxide, total [Moles/volume] in Serum or Plasma 28 meq/L 21 -32 [facility] ([facility]) Calcium [Mass/volume] in Serum or Plasma 9.5 mg/dL 8.5-10.1 [facility] ([facility]) Glomerular filtration rate/1.73 sq M pre dicted among non-blacks [Volume Rate/Area] in Serum or Plasma by Creatinine-based formula (MDRD) 53 mL/min [facility] ([facility]) Glomerular filtration rate/1.73 sq M pre dicted among blacks [Volume Rate/Area] in Serum or Plasma by Creatinine-based formula (MDRD) Laboratory test result [facility] ([facility]) <content>CHRONIC KIDNEY DISEASE STAGING PER NKF</content>
<content></content>
<content>STAGE I & II GFR >= 60 NORMAL TO MILDLY DECREASED</content>
<content>STAGE III GFR 30-59 MODERATELY DECREASED</content>
<content>STAGE IV GFR 15-29 SEVERELY DECREASED</content>
<content>STAGE V GFR <15 VERY LITTLE GFR LEFT</content>
<content>ESRD GFR <15 ON MARKETING PROPOSAL COORDINATOR</content>
<content></content> ID Date Data Source [id number] 12/27/2019 02:37:00 PM EST [facility] ([facility]) Name Value Range Interpretation Code Description Data Maggi rce(s) Supporting Document(s) Erythrocytes [#/volume] in Blood by Automated count 3.73 x10*6/UL 4.2 0-6.30 [facility] ([facility]) Leukocytes [#/volume] in Blood by Automated count 5.6 x10*3/UL 4.1-10 .9 [facility] Hematocrit [Volume Fraction] of Blood by Automated count 35.7 % 3 7.0-51.0 [facility] MCV 95.6 fL 80.0-97.0 [facility] ([facility]) Hemoglobin [Mass/volume] in Blood 12.4 g/dL 12.0-18.0 [facility] ([facility]) MCH 33.1 pg 26.0-32.0 [facility] ([facility]) MCHC 34.6 g/dL 31.0-38.0 [facility] ([facility]) Erythrocyte distribution width [Ratio] by Automated count 12.9 % 11.6-13.7 [facility] ([facility]) Platelets [#/volume] in Blood by Automated count 262 x10*3/UL 140-440 [facility] ([facility]) Lymph % 41.2 % 10.0-58.5 [facility]) MPV 7.9 FL 7.8-11.0 [facility]) Mid % 7.4 % 1.7-9.3 [facility]) Lymph # 2.3 x10*3/UL 0.6-4.1 [facility] ([facility]) Mid # 0.5 x10*3/UL 0.1-0.6 [facility] ([facility]) Neut % 51.4 % 37.0-92.0 [facility]) Neut # 2.8 x10*3/UL 2.0-7.8 [facility] ([facility]) ID Date Data Source [id number] 11/30/2019 11:23:55 AM [facility] Current Problems: DENTAL BAHAI STA TUS (ICD-V45.84) (GAI04-R79.811)Current Medications: * SEE SCANNED 2 PAGES Dental [...] AM): ; phong (Nov 30 2019 11:45AM): [facility](-). CC: none. Reviewed Xrays. Exam: caries/defective uatsdin detected. OCS: WNL, IO/ EO completed, No [...] 11:06 AM): Current Problems: Dental disorder (ICD-525.9) (MBV31-J10.9)DENTAL BAHAI STATUS (ICD-V45.84) (EXO60-V87.811)Current Medications: * SEE SCANNED 2 PAGES Dental [...] rce(s) Supporting Document(s) ID Date Data Source [id number] 11/30/2019 10:04:59 AM [facility] Vital SignsBlood Pressure: 149/89 Patient History Medical History:There is 2 pages of paperworked scanned for her medical history and 3 pages scanned in for her medicines. High cholesterolHypertensionSpinal stenosisHypothyroidismSleep apneaPolyneuropathyGERDSpinal stenosisFamily History:Cancer - Breast (Mother)Heart disease (Father)Heart disease (Mother)Heart disease (Brother)Social/Personal History: Smoking Status: former smokerCurrent Problems: Dental disorder (ICD-525.9) (QQF46-I53.9)DENTAL BAHAI STATUS (ICD-V45.84) (RTF25-E40.811)Current Medications: * SEE SCANNED 2 PAGES Past [...] application Chart Notes:hunter (Nov 30 2019 11:07AM): [facility](-)cc-My upper right and left teeth have been [...] & Plan Problems:Added: Dental disorder (ICD- 525.9) (NSC42-Z18.9)Medications:SEE SCANNED 2 PAGESAllergies:No Known Allergies (updated 11/30/2019) Orders:Oral Surgery Referral [CPT-[id number]] Name Value Range Interpretation Code Description Data Maggi rce(s) Supporting Document(s) Procedure Social History Code Duration Value Status Description Data Source(s ) Smoking 09/11/2020 12:00:00 AM EST Patient is a former smoker completed Patient is a former smoker [facility] ([facility], ) Smoking 11/15/2019 02:38:58 PM EST Ex-smoker (finding) complet ed Ex-smoker (finding) LUCIA (Ian Rajan MD [facility]) Vital Signs ID Date Data Source UNK Name Value Range Interpretation Code Description Data Source(s) Body mass index (BMI) [Ratio] 29.5 kg/m2 29.5 k g/m2 [facility] ([facility]) Body weight 165.00 [lb_av] 165.00 [lb_av] MED[facility] T ([facility]) Body height 62.75 [in_i] 62.75 [in_i] [facility] 5'2.75" Heart rate 92 /min 92 /min [facility] ([facility]) Diastolic blood pressure 70 mm[Hg] 70 mm[Hg] [facility] ([facility]) RT Arm Systolic blood pressure 110 mm[Hg] 110 mm[Hg] M EDENT ([facility]) RT Arm Body surface area Derived from formula 1.77 m2 1.77 m2 [facility] ([facility]) Body weight 73.937 kg 73.937 kg [facility] ([facility]) Banks body weight 115 [lb_av] 115 [lb_av] MEDEN T ([facility]) Body mass index (BMI) [Ratio] 28.9 kg/m2 28.9 k g/m2 [facility] ([facility]) Body weight 163.00 [lb_av] 163.00 [lb_av] [facility] T ([facility]) Body height 63 [in_i] 63 [in_i] [facility] 5'3" Body surface area Derived from formula 1.77 m2 1.77 m2 [facility] ([facility]) Body weight 73.937 kg 73.937 kg [facility] ([facility]) Banks body weight 115 [lb_av] 115 [lb_av] MEDEN T ([facility]) Body mass index (BMI) [Ratio] 28.9 kg/m2 28.9 k g/m2 [facility] ([facility]) Body weight 163.00 [lb_av] 163.00 [lb_av] MED[facility] T ([facility]) Body height 63 [in_i] 63 [in_i] [facility] ([facility]) 5'3" Body surface area Derived from formula 1.77 m2 1.77 m2 [facility] Body weight 73.937 kg 73.937 kg [facility] Banks body weight 115 [lb_av] 115 [lb_av] MED[facility] T ([facility]) Body mass index (BMI) [Ratio] 28.9 kg/m2 28.9 k g/m2 [facility] ([facility]) Body weight 163.00 [lb_av] 163.00 [lb_av] [facility] T ([facility]) Body height 63 [in_i] 63 [in_i] [facility] ([facility]) 5'3" Body mass index (BMI) [Ratio] 29.5 kg/m2 29.5 k g/m2 [facility] ([facility]) Body weight 165.12 [lb_av] 165.12 [lb_av] MEDEN T ([facility]) Body height 62.75 [in_i] 62.75 [in_i] [facility] ([facility]) 5'2.75" Heart rate 104 /min 104 /min [facility] Diastolic blood pressure 84 mm[Hg] 84 mm[Hg] [facility] ([facility]) Systolic blood pressure 136 mm[Hg] 136 mm[Hg] [facility] Diastolic blood pressure 80 mm[Hg] 80 mm[Hg] [facility] ([facility]) RT Arm Systolic blood pressure 142 mm[Hg] 142 mm[Hg] M [facility] ([facility]) RT Arm Body surface area Derived from formula 1.77 m2 1.77 m2 [facility] ([facility]) Body weight 73.937 kg 73.937 kg [facility] ([facility]) Banks body weight 115 [lb_av] 115 [lb_av] [facility] T ([facility]) Body mass index (BMI) [Ratio] 28.9 kg/m2 28.9 k g/m2 [facility] ([facility]) Body weight 163.00 [lb_av] 163.00 [lb_av] [facility] T ([facility]) Body height 63 [in_i] 63 [in_i] [facility] ([facility]) 5'3" Body mass index (BMI) [Ratio] 29.1 kg/m2 29.1 k g/m2 [facility] ([facility]) Body weight 163.00 [lb_av] 163.00 [lb_av] MED[facility] T ([facility]) verbal Body height 62.75 [in_i] 62.75 [in_i] [facility] ([facility]) 5'2.75" Heart rate 96 /min 96 /min [facility] ([facility]) Diastolic blood pressure 74 mm[Hg] 74 mm[Hg] [facility] ([facility]) RT Arm Systolic blood pressure 122 mm[Hg] 122 mm[Hg] [facility] RT Arm Banks body weight 115 [lb_av] 115 [lb_av] MED[facility] T ([facility]) Body mass index (BMI) [Ratio] 30.3 kg/m2 30.3 k g/m2 [facility] ([facility]) Body weight 171.00 [lb_av] 171.00 [lb_av] [facility] T ([facility]) Body height 63 [in_i] 63 [in_i] [facility] ([facility]) 5'3" Respiratory rate 12 /min 12 /min [facility] ( [facility]) Body mass index (BMI) [Ratio] 28.7 kg/m2 28.7 k g/m2 [facility] ([facility]) Body weight 161.00 [lb_av] 161.00 [lb_av] [facility] T ([facility]) Body height 62.75 [in_i] 62.75 [in_i] [facility] ([facility]) 5'2.75" Heart rate 98 /min 98 /min [facility] ([facility]) Diastolic blood pressure 74 mm[Hg] 74 mm[Hg] [facility] ([facility]) Systolic blood pressure 146 mm[Hg] 146 mm[Hg] [facility] Body surface area Derived from formula 1.80 m2 1.80 m2 [facility] ([facility]) Body weight 76.205 kg 76.205 kg [facility] ([facility]) Banks body weight 115 [lb_av] 115 [lb_av] MED[facility] T ([facility]) Body mass index (BMI) [Ratio] 29.8 kg/m2 29.8 k g/m2 [facility] ([facility]) Body weight 168.00 [lb_av] 168.00 [lb_av] MED[facility] T ([facility]) Body height 63 [in_i] 63 [in_i] [facility] ([facility]) 5'3" Oxygen saturation in Arterial blood by Pulse oximetry 95 % 95 % [facility] ([facility]) Room Air Heart rate 94 /min 94 /min [facility] ([facility]) Diastolic blood pressure 78 mm[Hg] 78 mm[Hg] [facility] ([facility]) Systolic blood pressure 120 mm[Hg] 120 mm[Hg] [facility] ([facility]) Body mass index (BMI) [Ratio] 30.3 kg/m2 30.3 k g/m2 [facility] ([facility]) Body weight 169.50 [lb_av] 169.50 [lb_av] MED[facility] T ([facility]) Body height 62.75 [in_i] 62.75 [in_i] [facility] 5'2.75" Heart rate 88 /min 88 /min [facility] ([facility]) Diastolic blood pressure 60 mm[Hg] 60 mm[Hg] [facility] ([facility]) RT Arm Systolic blood pressure 122 mm[Hg] 122 mm[Hg] [facility] ([facility]) RT Arm Body mass index (BMI) [Ratio] 30.9 kg/m2 30.9 k g/m2 [facility] ([facility]) Body weight 173.00 [lb_av] 173.00 [lb_av] MED[facility] T ([facility]) Body height 62.75 [in_i] 62.75 [in_i] [facility] 5'2.75" Heart rate 80 /min 80 /min [facility] ([facility]) Diastolic blood pressure 74 mm[Hg] 74 mm[Hg] [facility] ([facility]) RT Arm Systolic blood pressure 166 mm[Hg] 166 mm[Hg] [facility]) RT Arm [place] body weight 115 [lb_av] 115 [lb_av] [facility] Body mass index (BMI) [Ratio] 3.0 kg/m2 3.0 kg /m2 [facility] ([facility]) Body weight 17.00 [lb_av] 17.00 [lb_av] [facility] ([facility]) Body height 63 [in_i] 63 [in_i] [facility] ([facility]) 5'3" Respiratory rate 12 /min 12 /min [facility] ( [facility]) Body mass index (BMI) [Ratio] 30.6 kg/m2 30.6 k g/m2 [facility] ([facility]) Body weight 171.50 [lb_av] 171.50 [lb_av] [facility] Body height 62.75 [in_i] 62.75 [in_i] [facility]) 5'2.75" Heart rate 88 /min 88 /min [facility]) Diastolic blood pressure 80 mm[Hg] 80 mm[Hg] [facility] ([facility]) RT Arm Systolic blood pressure 136 mm[Hg] 136 mm[Hg] [facility] ([facility]) RT Arm Oxygen saturation in Arterial blood by Pulse oximetry 94 % 94 % [facility]) Body weight 174.00 [lb_av] 174.00 [lb_av] [facility] [place] [facility] Heart rate 86 /min 86 /min [facility]) Diastolic blood pressure 82 mm[Hg] 82 mm[Hg] [facility] ([facility]) Systolic blood pressure 138 mm[Hg] 138 mm[Hg] [facility] Body mass index (BMI) [Ratio] 31.1 kg/m2 31.1 k g/m2 [facility] ([facility]) Oxygen saturation in Arterial blood by Pulse oximetry --post exerci se 90 % 90 % [facility]) RM Air Body weight 174.25 [lb_av] 174.25 [lb_av] [facility] ([facility]) Body height 62.75 [in_i] 62.75 [in_i] [facility] ([facility]) 5'2.75" Heart rate 106 /min 106 /min [facility] ([facility]) Diastolic blood pressure--standing 62 mm[Hg] 6 2 mm[Hg] [facility] ([facility]) p-100 Systolic blood pressure--standing 138 mm[Hg] 13 8 mm[Hg] [facility] ([facility]) p-100 Diastolic blood pressure--sitting 84 mm[Hg] 84 mm[Hg] [facility] ([facility]) p88 Systolic blood pressure--sitting 148 mm[Hg] 148 mm[Hg] [facility] ([facility]) p88 Diastolic blood pressure--supine 82 mm[Hg] 82 mm[Hg] [facility] ([facility]) p85 Systolic blood pressure--supine 152 mm[Hg] 152 mm[Hg] [facility] ([facility]) p85 Body mass index (BMI) [Ratio] 30.9 kg/m2 30.9 k g/m2 [facility] ([facility]) Body weight 173.25 [lb_av] 173.25 [lb_av] [facility] Body height 62.75 [in_i] 62.75 [in_i] [facility] ([facility]) 5'2.75" Heart rate 80 /min 80 /min [facility] ([facility]) Diastolic blood pressure 88 mm[Hg] 88 mm[Hg] [facility] ([facility]) Systolic blood pressure 130 mm[Hg] 130 mm[Hg] [facility] ([facility]) Respiratory rate 20 /min 20 /min [facility] ( [facility]) room air, easy and unlabored Heart rate 85 /min 85 /min [facility] ([facility]) Diastolic blood pressure 82 mm[Hg] 82 mm[Hg] [facility] ([facility]) Systolic blood pressure 142 mm[Hg] 142 mm[Hg] [facility]) Oxygen saturation in Arterial blood by Pulse oximetry 98 % 98 % [facility] ([facility]) Respiratory rate 18 /min 18 /min [facility] ( [facility]) Body temperature 98.6 [degF] 98.6 [degF] [facility] ([facility]) Heart rate 91 /min 91 /min [facility] ([facility]) Diastolic blood pressure 81 mm[Hg] 81 mm[Hg] [facility] ([facility]) Systolic blood pressure 146 mm[Hg] 146 mm[Hg] [facility] ([facility]) Body mass index (BMI) [Ratio] 31.6 kg/m2 31.6 k g/m2 [facility] ([facility]) Body weight 177.25 [lb_av] 177.25 [lb_av] [facility] ([facility]) Body height 62.75 [in_i] 62.75 [in_i] [facility] ([facility]) 5'2.75" Heart rate 68 /min 68 /min [facility] ([facility]) Diastolic blood pressure 72 mm[Hg] 72 mm[Hg] [facility] ([facility]) Systolic blood pressure 142 mm[Hg] 142 mm[Hg] [facility] ([facility]) Diastolic blood pressure 82 mm[Hg] 82 mm[Hg] [facility] ([facility]) RT Arm Systolic blood pressure 168 mm[Hg] 168 mm[Hg] [facility] ([facility]) RT Arm Patient Treatment Plan of Care Planned Activity Planned Date Details Description Data Source (s) loteprednol etabonate 5 MG/ML Ophthalmic Suspension [L otemax] 11/08/2019 12:00:00 AM EST [place] (Ian Rajan MD [facility]) prednisolone acetate 10 MG/ML Ophthalmic Suspension [P red Forte] 01/27/2017 12:00:00 AM EDT [place] (Ian Rajan MD [facility])
[2020-12-25] MEDS ORDERED: QC A650T3 PO (23:37)
[2020-12-25] MEDS ORDERED: PLAV1TAB2 PO (23:37)
[2020-12-25] MEDS ORDERED: ASPI81TA26 PO (23:37)
[2020-12-26 01:46] VITALS: BP 167/70
== END 2020-12-26 01:55 | disposition home or self-care (01) ==
LOC: M ED 21:20
DX: R04.0 Epistaxis (principal); I10 Essential (primary) hypertension; E78.5 Hyperlipidemia, unspecified; G47.33 Obstructive sleep apnea (adult) (pediatric); Z99.89 Dependence on other enabling machines and devices; K21.9 Gastro-esophageal reflux disease without esophagitis; E03.9 Hypothyroidism, unspecified; Z86.73 Personal history of transient ischemic attack (TIA), and cerebral infarction without residual deficits; F41.9 Anxiety disorder, unspecified; F33.9 Major depressive disorder, recurrent, unspecified; Z91.048 Other nonmedicinal substance allergy status; Z79.2 Long term (current) use of antibiotics; Z79.899 Other long term (current) drug therapy

== ENCOUNTER → 2021-05-21 | Outpatient (CLI) | payer MEDICARE, MEDICAID ==
[~2021-05-21] MED LIST changes: +ASPI-569 PO; +ASPI81TA26 PO; -ASPI81TAEC PO; -FOLI400T PO; +FOLI400T13 PO; +GABA-283 PO; -GABA-845 PO; +PLAV1TAB2 PO; +QC A650T3 PO; -SIME180C PO; +SIME180C25 PO
--- NOTE | 2021-05-21 12:36 | DEXAMM ---
INDICATION: DISORDER OF BONE/M85.80. COMPARISON: Comparison study March 12, 2019 and August 03, 2001. TECHNIQUE: Bone density was measured using dual-energy x-ray absorptionmetry (DEXA). FINDINGS: AP SPINE L1-L4 BMD 1.388 g/cm2 Young Adult T-Score 1.6 Age Matched Z-Score 3.4. LT FEMUR, TOTAL BMD 0.832 g/cm2 Young Adult T-Score -1.4 Age Matched Z-Score 0.7. LT NECK BMD 0.815 g/cm2 Young Adult T-Score -1.7 Age Matched Z-Score 0.7. RT FEMUR, TOTAL BMD 0.863 g/cm2 Young Adult T-Score -1.1 Age Matched Z-Score 1.0. RT NECK BMD 0.841 g/cm2 Young Adult T-Score -1.4 Age Matched Z-Score 0.8. IMPRESSION: There is normal bone density of the spine. There is low bone density of the left hip. There is low bone density of the right hip. The density of the spine has increased 18.7% since the initial exam on August 03, 2001. The density of the spine increased 12.7% since most recent exam on March 12, 2019. The density of the left hip has decreased 0.1% since initial exam on August 03, 2001. The density of the left hip has decreased 1.8% since most recent exam on March 12, 2019. The density of the right hip has increased 4.4% since the initial exam on March 07, 2015. The density of the right hip has increased 3.2% since the most recent exam on March 12, 2019. FOLLOW-UP: Recommendation for the next bone density exam: 2 years. <Electronically signed by Moises Lemus > 05/21/21 [id number]
== END ==
LOC: M WHC 11:09
PROVIDERS: ATTEND Internal Medicine
DX: M85.851 Other specified disorders of bone density and structure, right thigh (principal); M85.852 Other specified disorders of bone density and structure, left thigh

== ENCOUNTER 2021-06-25 14:47 | Emergency (ER) | payer MEDICARE, MEDICAID ==
[~2021-06-25] VITALS: Ht 160 cm; Wt 77.3 kg
[2021-06-25] MEDS ORDERED: ACETAMINOPHEN 500 MG TAB PO ONE (15:30)
--- NOTE | 2021-06-25 15:49 | REPVR ---
PROCEDURE INFORMATION: Exam: CT Head Without Contrast Exam date and time: 06/25/2021 3:37 PM Age: 80 years old Clinical indication: Injury or trauma; Fall; Blunt trauma (contusions or hematomas) TECHNIQUE: Imaging protocol: Computed tomography of the head without contrast. Radiation optimization: All CT scans at this facility use at least one of these dose optimization techniques: automated exposure control; mA and/or kV adjustment per patient size (includes targeted exams where dose is matched to clinical indication); or iterative reconstruction. COMPARISON: CT Head without contrast 05/21/2020 4:25 PM FINDINGS: Brain: There is no acute intracranial hemorrhage. There is lucency in the cerebral white matter, likely microvascular disease although non-specific. Swartz white differentiation is intact. 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 There are no extra-axial fluid collections. No evidence of mass. There is no mass effect or midline shift. Cerebral ventricles: The ventricles and sulci are enlarged, consistent with volume loss / atrophy. No hydrocephalus. Paranasal sinuses: Visualized sinuses are unremarkable. No fluid levels. Mastoid air cells: No significant mastoid effusion. Vasculature: There is vascular calcification. Bones/joints: No acute fracture. Soft tissues: Unremarkable as visualized. IMPRESSION: 1. No evidence of acute intracranial abnormality. No evidence of acute infarction, hemorrhage, or mass. 2. Atrophy and microvascular disease. Electronically signed by: Evelyn Horn On 06/25/2021 15:49:21 PM
--- NOTE | 2021-06-25 16:01 | REP ---
INDICATION: trauma COMPARISON: None. TECHNIQUE: Four views right ankle. FINDINGS: There is no evidence of acute fracture, dislocation, or intrinsic bone disease.There is mild inferior calcaneal spurring and mild dorsal navicular spurring. The ankle mortise is anatomic. IMPRESSION: No fracture or dislocation. <Electronically signed by Ad Swartz > 06/25/21 [id number]
--- NOTE | 2021-06-25 16:09 | REP ---
INDICATION: trauma COMPARISON: None. TECHNIQUE: Four views right wrist. FINDINGS: There is no evidence of acute fracture, dislocation, or intrinsic bone disease.There is mild radiocarpal joint space narrowing, subchondral sclerosis and cystic change. Diffuse moderate narrowing is noted of intercarpal joints as well as the joint between trapezium and base of his 1st metacarpal, with subchondral sclerosis and cystic change diffusely. IMPRESSION: No fracture or dislocation. Degenerative changes. <Electronically signed by Ad Swartz > 06/25/21 [id number]
--- NOTE | 2021-06-25 16:13 | REP ---
INDICATION: trauma COMPARISON: None. TECHNIQUE: Four views right foot. FINDINGS: There is no evidence of acute fracture, dislocation, or intrinsic bone disease.There is mild inferior calcaneal spurring and mild dorsal navicular spurring. Two metallic screws are seen in the distal aspect of the 5th metatarsal. There is moderate narrowing with sclerosis at the 1st metatarsophalangeal joint. There has been prior resection of a portion of the distal aspect of the 5th proximal phalanx. IMPRESSION: No fracture or dislocation. <Electronically signed by Ad Swartz > 06/25/21 [id number]
[2021-06-25 16:23] VITALS: O2SAT 97
[2021-06-25 18:30] VITALS: BP 194/85
== END 2021-06-25 18:49 | disposition home or self-care (01) ==
LOC: M ED 14:47
DX: S90.01XA Contusion of right ankle, initial encounter (principal); S60.211A Contusion of right wrist, initial encounter; R29.6 Repeated falls; W01.0XXA Fall on same level from slipping, tripping and stumbling without subsequent striking against object, initial encounter; Y92.009 Unspecified place in unspecified non-institutional (private) residence as the place of occurrence of the external cause; Y93.9 Activity, unspecified; Y99.9 Unspecified external cause status; M77.31 Calcaneal spur, right foot; M19.071 Primary osteoarthritis, right ankle and foot; M19.031 Primary osteoarthritis, right wrist; I10 Essential (primary) hypertension; E78.5 Hyperlipidemia, unspecified; G47.33 Obstructive sleep apnea (adult) (pediatric); E03.9 Hypothyroidism, unspecified; Z86.73 Personal history of transient ischemic attack (TIA), and cerebral infarction without residual deficits; Z91.048 Other nonmedicinal substance allergy status; Z79.899 Other long term (current) drug therapy

== ENCOUNTER 2021-08-29 09:53 | Inpatient (IN) | payer MEDICARE, MEDICAID ==
[~2021-08-29] VITALS: Ht 160 cm; Wt 75.5 kg
--- NOTE | 2021-08-29 10:50 | REPVR ---
PROCEDURE INFORMATION: Exam: CT Head Without Contrast Exam date and time: 08/29/2021 10:38 AM Age: 80 years old Clinical indication: Injury or trauma; Fall; Blunt trauma (contusions or hematomas) TECHNIQUE: Imaging protocol: Computed tomography of the head without contrast. Radiation optimization: All CT scans at this facility use at least one of these dose optimization techniques: automated exposure control; mA and/or kV adjustment per patient size (includes targeted exams where dose is matched to clinical indication); or iterative reconstruction. COMPARISON: CT Head without contrast 06/25/2021 3:35 PM FINDINGS: Brain: There is no acute intracranial hemorrhage or mass effect. Moderate diffuse volume loss is within the range of normal for patient age. There are small vessel ischemic changes within the periventricular and subcortical white matter, but the normal smith-white matter delineation is maintained. Cerebral ventricles: Prominence of the ventricular system is commensurate with volume loss. Paranasal sinuses: Visualized sinuses are unremarkable. No fluid levels. Mastoid air cells: Visualized mastoid air cells are well aerated. Bones/joints: Unremarkable. No acute fracture. Soft tissues: Unremarkable. IMPRESSION: No acute hemorrhage or calvarial fracture. Electronically signed by: Erin Long On 08/29/2021 10:49:41 AM
--- NOTE | 2021-08-29 11:00 | REPVR ---
PROCEDURE INFORMATION: Exam: XR Chest Exam date and time: 08/29/2021 10:41 AM Age: 80 years old Clinical indication: Other: Fatigue, sycncope, fall; Additional info: Fever TECHNIQUE: Imaging protocol: XR of the chest. Views: 1 view. COMPARISON: CR PORTABLE CHEST X-RAY 10/22/2020 10:20 PM FINDINGS: Lungs: Unremarkable. No consolidation. Pleural spaces: Unremarkable. No pleural effusion. No pneumothorax. Heart/Mediastinum: Unremarkable. No cardiomegaly. Bones/joints: Unremarkable. IMPRESSION: No acute findings. Electronically signed by: Erin Long On 08/29/2021 10:59:35 AM
--- OUTSIDE RECORDS SUMMARY | 2021-08-29 11:02 | CCD | Continuity of Care Document ---
Author Author Hayde DUDLEY MD Organization Unknown Address [address] [facility] [address] [place] [address] Phone [phone] Care Team Providers Care Life Trainer Name Role Phone Yakelin Thapa M.D. AUTM [phone] AUTM Unavailable Problems Active Problems Provider Date [...] q uit 80's hx: 1ppd x 26y. Allergies and adverse reactions Active Allergies Criticality Reaction | Severity Comments Date Adhesives Unable to assess criticality 02/14/2012 Medications Active Medications SIG Qnty Indications Ordering Provide r Date Omeprazole 40mg Capsules DR 1 by mouth every day 30caps Jeff Dudley MD 08/19/2021 Polysporin 500-40397Ieiz/GM Ointme nt apply ointment to each nostril three times a day for 10 days 14.200gm Jeff Dudley MD 08/10/2021 Ipratropium [place] 0.06% Solution spray 2 sprays in each nostrils two times a day 15units Jeff tim MD 06/08/2021 Polysporin 500-84147Gzpn/GM Ointme nt apply ointment to each nostril three times a day for 10 days 14.200gm Jeff Dudley MD 01/12/2021 Sinus Rinse Bottle Kit Packet use once daily 3Months Jeff Dudley MD 12/05/2020 Polysporin 500-96931Scug/GM Ointme nt apply ointment to each nostril three times a day for 10 days 14.200gm Jeff Dudley MD 12/05/2020 Saline Mist [place] 0.65% Solution 2 sprays to each nostril 4 times daily as needed 135ml Tyrell Macias MD 11/11/2020 Mupirocin 2% Ointment apply to nose as directed twice a day 22gm Tyrell Macias MD 02/22/[address] Part 1 po qd Unknown Losartan Potassium 50mg Tablets Yakelin Thapa M.D. Vitamin D3 2000Unit Chewtabs 1 po qd Unknown Super B Complex Maxi Tablets 1 po qd Unknown Centrum Silver Tablets 1 po qd Unknown Preservision Areds 2 Areds 2 Capsu les 1 po qd Unknown Restasis 0.05% Emulsion 1 gt both eyes bid Unknown Ditropan XL 5mg Tablets ER 24HR 1 by mouth every day Unknown Clopidogrel Bisulfate 75mg Tablets Jacquelyn Mustafa MD Alendronate Sodium 70mg Tablets Yakelin Thapa M.D. Pantoprazole Sodium 20mg Tablets Yakelin Salas M.D. Calcium Citrate + D3 [id number] Tablets 2 po bid Unknown CPAP 6cm [...] CPT Code Status Date Vaccine Lot # 33588 Given 08/05/2010 Influenza Virus Split 3 Yrs And Above For Intramuscular Use 31130 Given 07/21/2010 Pneumococcal PPSV23 Q2036 Refused 09/04/2015 Influenza Vaccine 3 Years Of Age Or Older (Flulaval) Vital Signs Date Vital Result Comment 08/19/2021 1:11pm Height 63 inches 5'3" Weight 167.00 lb BMI (Body Mass Index) 29.6 kg/m2 [place] Body Weight 115 lb Weight 75.751 kg BSA (Body Surface Area) 1.79 m2 07/20/2021 8:28am Height 63 inches 5'3" Weight 167.00 lb BMI (Body Mass Index) 29.6 kg/m2 [place] Body Weight 115 lb Weight 75.751 kg BSA (Body Surface Area) 1.79 m2 Results Description No Information Available Procedures Date Code Description Status 07/20/2021 88708 Office/Outpatient Established Lo w MDM 20-29 Min Completed 06/08/2021 76567 Office/Outpatient Established Mo d MDM 30-39 Min Completed 04/28/2021 13188 Office/Outpatient Established Lo w MDM 20-29 Min Completed Medical Devices Description No Information Available Encounters Type Date Location Provider Dx Diagnosis Office Visit 07/20/2021 9:10a [facility] Jeff Dudley MD J31.0 Chronic rhinitis Office Visit 06/08/2021 1:00p [facility] Jeff Dudley MD J31.0 Chronic rhinitis Office Visit 04/28/2021 1:40p [facility] Jeff Dudley MD R04.0 Epistaxis J31.0 Chronic rhinitis Assessments Date Code Description Provider 08/19/2021 J31.0 Chronic rhinitis Jeff Dudley MD 08/19/2021 R04.0 Epistaxis Jeff Dudley MD 08/19/2021 K21.9 Gastro-esophageal reflux disease without esophagitis Jeff Dudley MD 07/20/2021 J31.0 Chronic rhinitis Jeff Dudley MD 06/08/2021 J31.0 Chronic rhinitis Jeff Dudley MD 04/28/2021 R04.0 Epistaxis Jeff Dudley MD 04/28/2021 J31.0 Chronic rhinitis Jeff Dudley MD Plan of Treatment Future Appointment(s):* 10/05/2021 2:10 pm - Jeff Dudley MD at [facility] ENT [facility] * 09/21/2021 10:00 am - Randolph Narvaez, P.A. at [facility] Pulmonary/Thoracic 08/19/2021 - Jeff Dudley MD* J31.0 Chronic rhinitis * R04.0 Epistaxis * K21.9 Gastro-esophageal reflux disease without esophagitis * All * New Medication:* Omeprazole 40 mg - 1 by mouth every day Functional Status Description No Information Available Mental Status Description No Information Available Referrals Description No Information Available
--- OUTSIDE RECORDS SUMMARY | 2021-08-29 11:02 | CCD | Continuity of Care Document ---
Author Author Hayde DUDLEY MD Organization Unknown Address 6 [facility] [address] [place] [address] Phone [phone] Care Team Providers Care Pocket Setter Name Role Phone Yakelin Thapa M.D. AUTM [phone] AUTM Unavailable Problems Active Problems Provider Date [...] day 30caps Jeff Dudley MD 08/19/2021 Polysporin [id number]/GM Ointme nt apply ointment to each nostril three times a day for 10 days 14.200gm Jeff Dudley MD 08/10/2021 Ipratropium [place] 0.06% Solution spray 2 sprays in each nostrils two times a day 15units Jeff tim MD 06/08/2021 Sinus Rinse Bottle Kit Packet use once daily 3Months Jeff Dudley MD 12/05/2020 Saline Mist [place] 0.65% Solution 2 sprays to each nostril [...] Yakelin Salas M.D. Calcium Citrate + D3 [id number] Tablets 2 po bid Unknown CPAP 6cm [...] CPT Code Status Date Vaccine Lot # 31155 Given 08/05/2010 Influenza Virus Split 3 Yrs And Above For Intramuscular Use 35382 Given 07/21/2010 Pneumococcal PPSV23 Q2036 Refused 09/04/2015 Influenza Vaccine 3 Years Of Age Or Older (Flulaval) Vital Signs Date Vital Result Comment 08/19/2021 1:11pm Height 63 inches 5'3" Weight 167.00 lb BMI (Body Mass Index) 29.6 kg/m2 [place] Body Weight 115 lb Weight 75.751 kg BSA (Body Surface Area) 1.79 m2 07/20/2021 8:28am Height 63 inches 5'3" Weight 167.00 lb BMI (Body Mass Index) 29.6 kg/m2 [place] Body Weight 115 lb Weight 75.751 kg BSA (Body Surface Area) 1.79 m2 Results Description No Information Available Procedures Date Code Description Status 08/19/2021 65718 Office/Outpatient Established Mo d MDM 30-39 Min Completed 07/20/2021 00462 Office/Outpatient Established Lo w MDM 20-29 Min Completed 06/08/2021 32942 Office/Outpatient Established Mo d MDM 30-39 Min Completed 04/28/2021 01729 Office/Outpatient Established Lo w MDM 20-29 Min Completed Medical Devices Description No Information Available Encounters Type Date Location Provider Dx Diagnosis Office Visit 08/19/2021 1:30p [facility] Jeff Dudley MD J31.0 Chronic rhinitis R04.0 Epistaxis K21.9 Gastro-esophageal reflux dis ease without esophagitis Office Visit 07/20/2021 9:10a [facility] Jeff Dudley MD J31.0 Chronic rhinitis Office Visit 06/08/2021 1:00p [facility] Jeff Dudley MD J31.0 Chronic rhinitis Office Visit 04/28/2021 1:40p [facility] Jeff Dudley MD R04.0 Epistaxis J31.0 [...] 2:10 pm - Jeff Dudley MD at [facility] ENT [facility] * 09/21/2021 10:00 am - China Christian at [facility] Pulmonary/Thoracic 08/19/2021 - Jeff Dudley MD* J31.0 Chronic rhinitis * R04.0 Epistaxis * K21.9 Gastro-esophageal reflux disease without esophagitis * All * New Medication:* Omeprazole 40 mg - 1 by mouth every day Functional Status Description No Information Available Mental Status Description No Information Available Referrals Description No Information Available
--- OUTSIDE RECORDS SUMMARY | 2021-08-29 11:02 | CCD | Continuity of Care Document ---
Author Author Hayde DUDLEY MD Organization Unknown Address 6 [facility] [address] [place] [address] Phone [phone] Care Team Providers Care Bunghole Borer Name Role Phone Yakelin Thapa M.D. AUTM [phone] AUTM Unavailable Problems Active Problems Provider Date [...] day 30caps Jeff Dudley MD 08/19/2021 Polysporin [id number]/GM Ointme nt apply ointment to each nostril three times a day for 10 days 14.200gm Jeff Dudley MD 08/10/2021 Ipratropium [place] 0.06% Solution spray 2 sprays in each nostrils two times a day 15units Jeff tim MD 06/08/2021 Polysporin 500-75026Awxz/GM Ointme nt apply ointment to each nostril three times a day for 10 days 14.200gm Jeff Dudley MD 01/12/2021 Sinus Rinse Bottle Kit Packet use once daily 3Months Jeff Dudley MD 12/05/2020 Polysporin 500-51619Nnhn/GM Ointme nt apply ointment to each nostril three times a day for 10 days 14.200gm Jeff Dudley MD 12/05/2020 Saline Mist [place] 0.65% Solution 2 sprays to each nostril [...] Yakelin Salas M.D. Calcium Citrate + D3 [id number] Tablets 2 po bid Unknown CPAP 6cm [...] CPT Code Status Date Vaccine Lot # [id number] Given 08/05/2010 Influenza Virus Split 3 Yrs And Above For Intramuscular Use 56940 Given 07/21/2010 Pneumococcal PPSV23 Q2036 Refused 09/04/2015 Influenza Vaccine 3 Years Of Age Or Older (Flulaval) Vital Signs Date Vital Result Comment 08/19/2021 1:11pm Height 63 inches 5'3" Weight 167.00 lb BMI (Body Mass Index) 29.6 kg/m2 [place] Body Weight 115 lb Weight 75.751 kg BSA (Body Surface Area) 1.79 m2 07/20/2021 8:28am Height 63 inches 5'3" Weight 167.00 lb BMI (Body Mass Index) 29.6 kg/m2 [place] Body Weight 115 lb Weight 75.751 kg BSA (Body Surface Area) 1.79 m2 Results Description No Information Available Procedures Date Code Description Status 07/20/2021 07955 Office/Outpatient Established Lo w MDM 20-29 Min Completed 06/08/2021 06281 Office/Outpatient Established Mo d MDM 30-39 Min Completed 04/28/2021 54839 Office/Outpatient Established Lo w MDM 20-29 Min Completed Medical Devices Description No Information Available Encounters Type Date Location Provider Dx Diagnosis Office Visit 07/20/2021 9:10a [facility] Jeff Dudley MD J31.0 Chronic rhinitis Office Visit 06/08/2021 1:00p [facility] Jeff Dudley MD J31.0 Chronic rhinitis Office Visit 04/28/2021 1:40p [facility] Jeff Dudley MD R04.0 Epistaxis J31.0 Chronic [...] 2:10 pm - Jeff Dudley MD at [facility] ENT [facility] * 09/21/2021 10:00 am - Randolph Narvaez, P.A. at [facility] Pulmonary/Thoracic 08/19/2021 - Jeff Dudley MD* J31.0 Chronic rhinitis * R04.0 Epistaxis * K21.9 Gastro-esophageal reflux disease without esophagitis * All * New Medication:* Omeprazole 40 mg - 1 by mouth every day Functional Status Description No Information Available Mental Status Description No Information Available Referrals Description No Information Available
--- OUTSIDE RECORDS SUMMARY | 2021-08-29 11:02 | CCD | Continuity of Care Document ---
Author Author Hayde DUDLEY MD Organization Unknown Address [address] [facility] [address] [place] [address] Phone [phone] Care Team Providers Care Extended Day Teacher Name Role Phone Yakelin Thapa M.D. AUTM [phone] AUTM Unavailable Problems Active Problems Provider Date [...] day 30caps Jeff Dudley MD 08/19/2021 Polysporin 500-57677Ocxb/GM Ointme nt apply ointment to each nostril three times a day for 10 days 14.200gm Jeff Dudley MD 08/10/2021 Ipratropium [place] 0.06% Solution spray 2 sprays in each nostrils two times a day 15units Jeff tim MD 06/08/2021 Polysporin 500-83625Wmjb/GM Ointme nt apply ointment to each nostril three times a day for 10 days 14.200gm Jeff Dudley MD 01/12/2021 Sinus Rinse Bottle Kit Packet use once daily 3Months Jeff Dudley MD 12/05/2020 Polysporin 500-28554Djlx/GM Ointme nt apply ointment to each nostril three times a day for 10 days 14.200gm Jeff Dudley MD 12/05/2020 Saline Mist [place] 0.65% Solution 2 sprays to each nostril [...] Yakelin Salas M.D. Calcium Citrate + D3 [id number] Tablets 2 po bid Unknown CPAP 6cm [...] CPT Code Status Date Vaccine Lot # 72085 Given 08/05/2010 Influenza Virus Split 3 Yrs And Above For Intramuscular Use 39484 Given 07/21/2010 Pneumococcal PPSV23 Q2036 Refused 09/04/2015 Influenza Vaccine 3 Years Of Age Or Older (Flulaval) Vital Signs Date Vital Result Comment 08/19/2021 1:11pm Height 63 inches 5'3" Weight 167.00 lb BMI (Body Mass Index) 29.6 kg/m2 [place] Body Weight 115 lb Weight 75.751 kg BSA (Body Surface Area) 1.79 m2 07/20/2021 8:28am Height 63 inches 5'3" Weight 167.00 lb BMI (Body Mass Index) 29.6 kg/m2 [place] Body Weight 115 lb Weight 75.751 kg BSA (Body Surface Area) 1.79 m2 Results Description No Information Available Procedures Date Code Description Status 07/20/2021 89721 Office/Outpatient Established Lo w MDM 20-29 Min Completed 06/08/2021 54178 Office/Outpatient Established Mo d MDM 30-39 Min Completed 04/28/2021 27071 Office/Outpatient Established Lo w MDM 20-29 Min Completed Medical Devices Description No Information Available Encounters Type Date Location Provider Dx Diagnosis Office Visit 07/20/2021 9:10a [facility] Jeff Dudley MD J31.0 Chronic rhinitis Office Visit 06/08/2021 1:00p [facility] Jeff Dudley MD J31.0 Chronic rhinitis Office Visit 04/28/2021 1:40p [facility] Jeff Dudley MD R04.0 Epistaxis J31.0 [...] 2:10 pm - Jeff Dudley MD at [facility] * 09/21/2021 10:00 am - [facility]vae[facility] P[facility] at [facility] 08/19/2021 - Jeff Dudley MD* J31.0 Chronic rhinitis * R04.0 Epistaxis * K21.9 Gastro-esophageal reflux disease without esophagitis * All * New Medication:* Omeprazole 40 mg - 1 by mouth every day Functional Status Description No Information Available Mental Status Description No Information Available Referrals Description No Information Available
--- OUTSIDE RECORDS SUMMARY | 2021-08-29 11:02 | CCD | Continuity of Care Document ---
Author Author Hayde Vieyra M.D. Organization Unknown Address [address] [facility] [address] [place] [address] Phone [phone] Care Team Providers Care Brick Sorter Name Role Phone Abdirizak Martin MD AUTM [phone] Raul Tierney DO AUTM [phone] Anne Jalloh OD AUTM Unavailable Ian Mora MD AUTM [phone] Yakelin Vieyra MD AUTM [phone] Chinmay Nieto DPM AUTM [phone] [facility] AUTM [phone] Margie Cohen Abdul AUTM [phone] [facility] Sara AUTM [phone] Problems Active Problems Provider Date Benign essential [...] SIG Qnty Indications Ordering Provide r Date Gabapentin 400mg Capsules take 1 capsule by mouth at bedtime 30caps Yakelin Vieyra M.D. 06/08 Docusate Sodium 100mg Capsules 1 by mouth qhs 30caps Yakelin Vieyra M.D. 04/20/20 21 Vaseline Gel ap ply small amount to bilateral anterior nares qhs 1units Yakelin Vieyra M.D. 01/30/2021 Tylenol 8 Hour Arthritis Pain 650mg Tablets ER 2-3x/day as needed 60tabs Rowdy Willingham 12/09/2020 Losartan Potassium 50mg Tablets 1 by mouth qhs 30tabs Yakelin Vieyra M.D. 12/09/19 [address] take one tablet 2x week on Tuesday and 24tabs Yakelin Vieyra M.D. 11/03/2020 Vitamin D 50mcg (2000 Ut) Tablets 1 [...] 10/07 Bacitracin (External) 500Unit/GM O intment apply small amount bid to area around and in nose 15gm Yakelin Vieyra M.D. 06/19/2019 Fiber Powder 3.4 gms qd 35 0gm Yakelin Vieyra M.D. 06/19/2019 Biotene Dry Mouth Liquid 1 spray four times a day as needed dry mouth 1Bjuaquin Murillo M.D. 12/18/2018 Refresh Tears 0.5% Solution 1 drops into both eyes 3 times a day (dry eyes) 30units JANESSA Leblanc 12/18/2018 Milk Of Magnesia 400mg/5ML Suspens ion 30mls by mouth daily /prn/ constipation 1Bottdarvin Vieyra M.D. 10/24/2018 Levothyroxine Sodium 125mcg Tablet s 1/2 tab by mouth every day 15tabs Yakelin Vieyra M.D. 1 12/19/2017 Loratadine 10mg Tablets 1 by mouth every day 30tabs Yakelin Vieyra M.D. 07/05/20 18 Pantoprazole Sodium 20mg Tablets D R 1 by mouth daily 30tabs Yakelin Vieyra M.D. 06/22/20 18 Oxybutynin Chloride ER 5mg Tablets ER 24HR 1 by mouth every day 90tabs Juan Ramon Willingham 06/22/2018 Spacer For Mdi use as directed 1units Julien Leblanc NURSE SUPERVISOR 11/30/2017 Ventolin HFA 108(90Base) mcg/Act A erosol 2 puffs four times a day as needed 8gm Yakelin quintero M.D. 11/21/2017 Centrum Silver Tablets 1 by mouth everyday 30tabs Yakelin Vieyra M.D. 09/12/20 17 Preparation H 0.25-14-74.9% Ointme nt qid prn for hemorrhoids-may keep at bedside & self apply 57gm Ruchi Jeronimo FNP 07/07/2017 Tums 500mg Chewtabs ch ew 1 tab bid 180units Yakelin Vieyra M.D. 06/15/2017 Simethicone 80mg Chewtabs one tab 4 times daily after meals and at bedtime as needed burping 120units Yakelin Vieyra M.D. 05/17/2017 Meclizine HCL 25mg Tablets take one tablet [...] 4% Cream apply a thin layer to left thigh bid 1units Yakelin Vieyra M.D. 11/27/2015 Restasis 0.05% Emulsion 1 drop both eyes twice a day further refills must come from eye 120unneeraj Vieyra M.D. 09/08/2015 Saline Nasal [place] 0.65% Solution 2 sprays each nostril q 6hrs prn dry nose 1units Ruchi Jeronimo FNP 08/26/2015 Roller Walker W/ Sit [facility] prn Yakelin Vieyra M.D. 08/26/2015 Duloxetine HCL 60mg Patience La take 1 capsule daily by mouth with 30mg tab 30caps Yakelin Drew M.D. 01/22/2014 Preservision Areds Tablets 2 tabs by mouth twice a day 120tabs Yakelin Vieyra M.D. 2012 Simvastatin 20mg Tablets take one tablet by mouth qd 30tabs Yakelin Vieyra M.D. 05/06/20 11 Capsaicin 0.025% Cream as nee ded feet Yakelin Vieyra M.D. Clopidogrel Bisulfate 75mg Tablets 1 by mouth every day Neurology Unknown Medications Administered in Office Medication SIG Qnty Indications Ordering Provider Date Covid-19 vaccine, Unspecified Inj ection Unknown 12/22/2020 Covid-19 vaccine, Unspecified Inj ection Unknown 12/01/2020 Administration Of Flu Vaccine Inj kassyion Yakelin Vieyra M.D. 07/21/20 20 Administration Of Flu Vaccine Inj ection JANESSA Leblanc 08/31/2017 Administration Of Flu Vaccine Inj ection Yakelin Vieyra M.D. 09/21/20 10 Administration Of Flu Vaccine Inj ection Ruchi Jeronimo FNP 08/20/2008 Administration Of Flu Vaccine Inj ection Ruchi Jeronimo FNP 08/31/2007 Administration Of Flu Vaccine Inj ection Yakelin Vieyra M.D. 08/31/20 04 Administration Of Flu Vaccine Inj kassyion Yakelin Vieyra M.D. 09/26/20 03 Immunizations CPT Code Status Date Vaccine Reaction Lot # 47336 Given 07/21/2020 Influenza Vaccin e Quadrivalent Preser/Antibiotic Free Im Use [id number] U-Flu Given 09/02/2018 Influenza,Unspecified 78622 Given 08/31/2017 Influenza Vaccin e Quadrivalent Preser/Antibiotic Free Im Use [id number] 06941 Given 12/06/2016 Adacel- Tetanus Diphtheria Pertussis [id number] 81128 Given 08/25/2015 PPD --15 omm negative C [id number] 06315 Given 01/23/2015 Prevnar 13 [id number] 61101 Given 09/21/2010 Influenza Virus Vaccine 14606 Given 12/16/2008 Pneumovax 23 65991 Given 08/20/2008 Influenza Virus Vaccine 58035 Given 08/31/2007 Influenza Virus Vaccine 81861 Given 08/31/2004 Influenza Virus Vaccine 22796 Given 09/26/2003 Influenza Virus Vaccine 86618 Given 09/04/2002 Influenza Virus Vaccine 02377 Given 08/09/2001 Influenza Virus Vaccine Vital Signs Date Vital Result Comment 07/28/2021 1:30pm BP Systolic 152 mmHg RT Arm BP Diastolic 80 mmHg RT Arm BP Systolic Recheck 132 mmHg BP Diastolic Recheck 84 mmHg Heart Rate 84 /min Height 62.75 inches 5'2.75" Weight 168.00 lb BMI (Body Mass Index) 30.0 kg/m2 06/29/2021 9:27am BP Systolic 144 mmHg RT Arm BP Diastolic 80 mmHg RT Arm Heart Rate 80 /min Height 62.75 inches 5'2.75" Weight 169.12 lb BMI (Body Mass Index) 30.2 kg/m2 Results Test Acquired Date Facility Test Result H/L Range Note Complete Blood Count 06/29/2021 [facility] Tool Dresser: [place] [address] [phone] WBC 4.6 x10*3/UL 4.1 - 10.9 RBC 3.86 x10*6/UL Low 4.20 - 6.30 Hemoglobin 12.5 g/dL 12.0 - 18.0 Hematocrit 36.6 % Low 37.0 - 51.0 MCV 94.8 fL 80.0 - 97.0 MCH 32.6 pg High 26.0 - 32.0 MCHC 34.3 g/dL 31.0 - 38.0 RDW 14.0 % High 11.6 - 13.7 PLT 317 x10*3/UL 140 - 440 MPV 7.7 FL Low 7.8 - 11.0 Lymph % 22.0 % 10.0 - 58.5 Mid % 5.8 % 1.7 - 9.3 Neut % 72.2 % 37.0 - 92.0 Lymph # 1.0 x10*3/UL 0.6 - 4.1 Mid # 0.3 x10*3/UL 0.1 - 0.6 Neut # 3.3 x10*3/UL 2.0 - 7.8 Laboratory test finding 06/29/2021 [facility] Tool Dresser: [place] [address] [phone] Magnesium 2.1 mg/dL 1.8 - 2.4 Basic Metabolic Panel 06/29/2021 [facility] Tool Dresser: [place] [address] [phone] Glucose 88 mg/dL 74 - 99 1 BUN 18 mg/dL 7 - 18 Creatinine 0.9 mg/dL 0.6 - 1.3 Sodium 139 mEq/L 136 - 145 Potassium 4.3 mEq/L 3.5 - 5.1 Chloride 102 mEq/L 98 - 107 Carbon Dioxide 32 mEq/L 21 - 32 Calcium 9.7 mg/dL 8.5 - 10.1 GFR 60 mL/min Low >60 GFR >= 60 mL/min >60 2 Laboratory test finding 06/29/2021 [facility] kina guzman Tool Dresser: [place] [address] [phone] Thyroid Stimulating Hormone 3.24 uIU/mL 0.3 6 - 3.74 Complete Blood Count 04/20/2021 [facility] Watson Tool Dresser: [place] [address] [phone] WBC 5.4 x10*3/UL 4.1 - 10.9 RBC 3.89 x10*6/UL Low 4.20 - 6.30 Hemoglobin 12.5 g/dL 12.0 - 18.0 Hematocrit 36.5 % Low 37.0 - 51.0 MCV 94.0 fL 80.0 - 97.0 MCH 32.2 pg High 26.0 - 32.0 MCHC 34.2 g/dL 31.0 - 38.0 RDW 14.6 % High 11.6 - 13.7 PLT 336 x10*3/UL 140 - 440 MPV 7.8 FL 7.8 - 11.0 Lymph % 30.6 % 10.0 - 58.5 Mid % 8.0 % 1.7 - 9.3 Neut % 61.4 % 37.0 - 92.0 Lymph # 1.6 x10*3/UL 0.6 - 4.1 Mid # 0.5 x10*3/UL 0.1 - 0.6 Neut # 3.3 x10*3/UL 2.0 - 7.8 Comprehensive Chem Profile 04/20/2021 [facility] Rodriguez Tool Dresser: [place] [address] [phone] Glucose 90 mg/dL 74 - 99 3 BUN 22 mg/dL High 7 - 18 Creatinine 1.0 mg/dL 0.6 - 1.3 Sodium 137 mEq/L 136 - 145 Potassium 4.5 mEq/L 3.5 - 5.1 Chloride 100 mEq/L 98 - 107 Carbon Dioxide 30 mEq/L 21 - 32 Calcium 9.8 mg/dL 8.5 - 10.1 Alk. Phosphatase 99 mg/dL 46 - 116 Total Bilirubin 0.5 mg/dL 0.2 - 1.0 Ast (Sgot) 25 U/L 15 - 37 Alt (SGPT) 25 U/L 12 - 78 Albumin 3.9 g/dL 3.4 - 5.0 Total Protein 8.0 g/dL 6.4 - 8.2 A/G Ratio 0.95 CALC Low 1.00 - 1.90 GFR 53 mL/min Low >60 GFR >= 60 mL/min >60 4 Lipid Profile 04/20/2021 [facility] Tool Dresser: Dr Sharif Perez [place] [id number] [phone] Cholesterol 169 mg/dL 131 - 200 Triglycerides 97 mg/dL 30 - 150 HDL Cholesterol 66 mg/dL High 35 - 60 LDL (Calculated) 84 CALC 50 - 159 Laboratory test finding 04/20/2021 [facility], Tool Dresser: [place] [address] [phone] Thyroid Stimulating Hormone 1.95 uIU/mL 0.3 6 - 3.74 Laboratory test finding 04/20/2021 [facility], Tool Dresser: [place] [address] [phone] Vitamin D 25-Hydroxy 41.9 ng/ml 24.0 - 80.0 5 1 100-125 mg/dL PRE-DIABET ES/FASTING >126 mg/dL DIABETES/FASTING 2 CHRONIC KIDNEY DISEASE STAGI NG PER NKF STAGE I & II GFR >= 60 NORMAL TO MILDLY DECREASED STAGE III GFR 30-59 MODERATELY DECREASED STAGE IV GFR 15-29 SEVERELY DECREASED STAGE V GFR <15 VERY LITTLE GFR LEFT ESRD GFR <15 ON HUSBANDRY PERSON 3 100-125 mg/dL PRE-DIABET ES/FASTING >126 mg/dL DIABETES/FASTING 4 CHRONIC KIDNEY DISEASE STAGI NG PER NKF STAGE I & II GFR >= 60 NORMAL TO MILDLY DECREASED STAGE III GFR 30-59 MODERATELY DECREASED STAGE IV GFR 15-29 SEVERELY DECREASED STAGE V GFR <15 VERY LITTLE GFR LEFT ESRD GFR <15 ON HUSBANDRY PERSON 5 This test was performed marcia islas [employer] IP Vitamin D immunoassay kit. Values obtained with different assay methods should not be used interchangeably. Procedures Date Code Description Status 06/29/2021 99412 Office/Outpatient Established Mo d MDM 30-39 Min Completed 06/03/2021 53735 Chronic Care MGMT 20 Mins Clinical Staff Time Per Calendar Month Completed 05/25/2021 27390 Office/Outpatient Established Mo d MDM 30-39 Min Completed 05/21/2021 [id number] Bone Mineral Density Test [facility] 05/06/2021 46205 Chronic Care MGMT 20 Mins Clinical Staff Time Per Calendar Month Completed 04/20/2021 85696 Office/Outpatient Established Mo d MDM 30-39 Min Completed 04/01/2021 75876 Chronic Care MGMT 20 Mins Clinical Staff Time Per Calendar Month Completed 02/23/2021 65240 Chronic Care MGMT 20 Mins Clinical Staff Time Per Calendar Month Completed 02/23/2021 87330 Chronic Care Management Services Ea Addl 20 Min Completed 03/12/2019 [id number] Bone Mineral Density Test [facility] 08/29/2017 [id number] Diabetic Foot Exam Completed 06/30/2017 [id number] Diabetic Foot Exam Completed 04/27/2017 [id number] Diabetic Retinal Eye Exam [facility] 03/08/2017 [id number] Bone Mineral Density Test [facility] 03/07/2015 [id number] Bone Mineral Density Test [facility] 08/01/2012 [id number] Mammogram Completed 06/26/2010 [id number] Colonoscopy Completed 04/04/2009 [id number] Bone Mineral Density Test [facility] 03/13/2007 [id number] Mammogram Completed 03/01/2007 [id number] Bone Mineral Density Test [facility] 07/08/2006 [id number] Colonoscopy Completed 07/15/2004 [id number] Bone Mineral Density Test [facility] Medical Devices Description No Information Available Encounters Type Date Location Provider Dx Diagnosis Office Visit 06/29/2021 9:15a [facility] R42 Dizziness and giddiness R40.0 Somnolence F32.89 Other specified depressive e pisodes E03.9 Hypothyroidism, unspecified M19.90 Unspecified osteoarthritis, unspecified site I10 Essential (primary) hyperten dianelys M81.0 Age-related osteoporosis w/o current pathological fracture G47.33 Obstructive sleep apnea (laci lt) (pediatric) L30.9 Dermatitis, unspecified Office Visit 05/25/2021 10:00a [facility] Vieyra M.D. 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 I10 Essential (primary) hyperten dianelys M15.9 Polyosteoarthritis, unspecif ied E03.9 Hypothyroidism, unspecified K21.9 Gastro-esophageal reflux dis ease without esophagitis M81.0 Age-related osteoporosis w/o current pathological fracture G47.33 Obstructive sleep apnea (laci lt) (pediatric) H91.93 Unspecified hearing loss, bi lateral F32.89 Other specified depressive e pisodes K59.00 Constipation, unspecified R04.0 Epistaxis J30.9 Allergic rhinitis, unspecifi ed E78.00 Pure hypercholesterolemia, u nspecified Assessments Date Code Description Provider 06/29/2021 R42 Dizziness and giddiness Yakelin Vieyra M.D. 06/29/2021 R40.0 Somnolence Yakelin garcia M.D. 06/29/2021 F32.89 Other specified depressive episo bro Yakelin Vieyra M.D. 06/29/2021 E03.9 Hypothyroidism, unspecified Katya Vieyra M.D. 06/29/2021 M19.90 Unspecified osteoarthritis, unsp ecified site Yakelin Vieyra M.D. 06/29/2021 I10 Essential (primary) hypertension Yakelin Vieyra M.D. 06/29/2021 M81.0 Age-related osteoporosis without current pathological fracture Yakelin Vieyra M.D. 06/29/2021 G47.33 Obstructive sleep apnea (adult) (pediatric) Yakelin Vieyra M.D. 06/29/2021 L30.9 Dermatitis, unspecified Yakelin Vieyra M.D. 06/03/2021 I10 Essential (primary) hypertension Yakelin Vieyra M.D. 06/03/2021 E03.9 Hypothyroidism, unspecified Katya Vieyra M.D. 06/03/2021 M15.9 Polyosteoarthritis, unspecified Yakelin Vieyra M.D. 05/25/2021 R04.0 Epistaxis Yakelin garcia M.D. 05/25/2021 I10 Essential (primary) hypertension Yakelin Vieyra M.D. 05/25/2021 M19.90 Unspecified osteoarthritis, unsp ecified site Yakelin Vieyra M.D. 05/25/2021 E03.9 Hypothyroidism, unspecified Katya Vieyra M.D. 05/25/2021 M81.0 Age-related osteoporosis without current pathological fracture Yakelin Vieyra M.D. 05/25/2021 G47.33 Obstructive sleep apnea (adult) (pediatric) Yakelin Vieyra M.D. 05/25/2021 H91.93 Unspecified hearing loss, bilate ral Yakelin Vieyra M.D. 05/25/2021 F32.89 Other specified depressive episo bro Yakelin Vieyra M.D. 05/25/2021 K59.00 Constipation, unspecified Yakelin Vieyra M.D. 05/25/2021 J30.9 Allergic rhinitis, unspecified J gayle Vieyra M.D. 05/25/2021 E78.00 Pure hypercholesterolemia, unspe cified Yakelin Vieyra M.D. 05/25/2021 Z86.73 Personal history of transient ischemic attack (TIA), and cerebral infarction without residual deficits Yakelin Vierya M.D. 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 05/06/2021 I10 Essential (primary) hypertension Yakelin Vieyra M.D. 05/06/2021 M19.90 Unspecified osteoarthritis, unsp ecified site Yakelin Vieyra M.D. 05/06/2021 E03.9 Hypothyroidism, unspecified Katya Vieyra M.D. 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 04/20/2021 M15.9 Polyosteoarthritis, unspecified Yakelin Vieyra M.D. 04/20/2021 E03.9 Hypothyroidism, unspecified Katya Vieyra M.D. 04/20/2021 K21.9 Gastro-esophageal reflux disease without esophagitis Yakelin Vieyra M.D. 04/20/2021 M81.0 Age-related osteoporosis without current pathological fracture Yakelin Vieyra M.D. 04/20/2021 G47.33 Obstructive sleep apnea (adult) (pediatric) Yakelin Vieyra M.D. 04/20/2021 H91.93 Unspecified hearing loss, bilate ral Yakelin Vieyra M.D. 04/20/2021 F32.89 Other specified depressive episo bro Yakelin Vieyra M.D. 04/20/2021 K59.00 Constipation, unspecified Yakelin Vieyra M.D. 04/20/2021 R04.0 Epistaxis Yakelin garcia M.D. 04/20/2021 J30.9 Allergic rhinitis, unspecified J gayle Vieyra M.D. 04/20/2021 E78.00 Pure hypercholesterolemia, unspe cified Yakelin Vieyra M.D. 04/01/2021 I10 Essential (primary) hypertension Yakelin Vieyra M.D. 04/01/2021 E03.9 Hypothyroidism, unspecified Katya Vieyra M.D. 02/23/2021 E03.9 Hypothyroidism, unspecified Katya Vieyra M.D. 02/23/2021 I10 Essential (primary) hypertension Yakelin Vieyra M.D. 02/23/2021 K21.9 Gastro-esophageal reflux disease without esophagitis Yakelin Vieyra M.D. Plan of Treatment Future Appointment(s):* 10/21/2021 1:00 pm - JANESSA Elam at [facility] Functional Status Description No Information Available Mental Status Description No Information Available Referrals Refer to Reason for Referral Status Appt Date Ian Mora MD REFERRAL FOR EYE CARE Created [employer] [facility] [address] [facility] [address], [address] [facility] [address] [phone] [facility] Behavioral Health REFERRAL FOR DEPRESSION Created [address] [place] [address] [phone]
--- OUTSIDE RECORDS SUMMARY | 2021-08-29 11:02 | CCD | Continuity of Care Document ---
Author Author Hayde Vieyra M.D. Organization Unknown Address [address] [facility] [address] [place] [address] Phone [phone] Care Team Providers Care Veneer Sheet Repairer Name Role Phone Abdirizak Martin MD AUTM [phone] Raul Tierney DO AUTM [phone] Anne Jalloh OD AUTM Unavailable Ian Mora MD AUTM [phone] Yakelin Vieyra MD AUTM [phone] Chinmay Nieto DPM AUTM [phone] [facility] AUTM [phone] Margie Cohen Abdul AUTM [phone] SSV-Assist Sara AUTM [phone] Problems Active Problems Provider Date Benign essential [...] bid to area around and in nose prn for erythema/pain 15gm Yakelin Vieyra M.D. 06/19/2019 Fiber Powder [...] Mdi use as directed 1units Julien Leblanc PUBLIC SERVICE ADMINISTRATOR 11/30/2017 Ventolin HFA 108(90Base) mcg/Act A erosol [...] Yakelin Vieyra M.D. 01/28/2017 Lumbar Support Cushion [facility] prn Yakelin Vieyra M.D. 12/01/2015 Aspercreme W/Lidocaine 4% Cream apply a thin layer to left thigh bid 1units Yakelin Vieyra M.D. 11/27/2015 Restasis 0.05% Emulsion 1 drop both eyes twice a day further refills must come from eye 120unneeraj Vieyra M.D. 09/08/2015 Saline Nasal [place] 0.65% Solution 2 sprays each nostril q 6hrs prn dry nose 1units Ruchi Jeronimo FNP 08/26/2015 Roller Walker W/ Sit [facility] prn Yakelin Vieyra M.D. 08/26/[address] HCL [address] C[address] La take 1 capsule daily by mouth [...] Code Status Date Vaccine Reaction Lot # [id number] Given 07/21/2020 Influenza Vaccin e Quadrivalent Preser/Antibiotic Free Im Use [id number] U-Flu Given 09/02/2018 Influenza,Unspecified 23632 Given 08/31/2017 Influenza Vaccin e Quadrivalent Preser/Antibiotic Free Im Use [id number] 47154 Given 12/06/2016 Adacel- Tetanus Diphtheria Pertussis [id number] 61528 Given 08/25/2015 PPD 10-21-15 omm negative C [id number] 92474 Given 01/23/2015 Prevnar 13 [id number] 33003 Given 09/21/2010 Influenza Virus Vaccine 43770 Given 12/16/2008 Pneumovax 23 45106 Given 08/20/2008 Influenza Virus Vaccine 51805 Given 08/31/2007 Influenza Virus Vaccine 28351 Given 08/31/2004 Influenza Virus Vaccine 09677 Given 09/26/2003 Influenza Virus Vaccine 50069 Given 09/04/2002 Influenza Virus Vaccine 91912 Given 08/09/2001 Influenza Virus Vaccine Vital Signs [...] Result H/L Range Note Complete Blood Count 07/28/2021 [facility] Oyster Cultivator: [place] [address] [phone] WBC 5.0 x10*3/UL 4.1 - 10.9 RBC 3.88 x10*6/UL Low 4.20 - 6.30 1 Hemoglobin 12.7 g/dL 12.0 - 18.0 Hematocrit 36.6 % Low 37.0 - 51.0 MCV 94.3 fL 80.0 - 97.0 MCH 32.7 pg High 26.0 - 32.0 MCHC 34.7 g/dL 31.0 - 38.0 RDW 13.7 % 11.6 - 13.7 PLT 303 x10*3/UL 140 - 440 MPV 7.5 FL Low 7.8 - 11.0 Lymph % 36.7 % 10.0 - 58.5 Mid % 7.4 % 1.7 - 9.3 Neut % 55.9 % 37.0 - 92.0 Lymph # 1.8 x10*3/UL 0.6 - 4.1 Mid # 0.4 x10*3/UL 0.1 - 0.6 Neut # 2.8 x10*3/UL 2.0 - 7.8 Basic Metabolic Panel 07/28/2021 [facility] Oyster Cultivator: [place] [address] [phone] Glucose 115 mg/dL High 74 - 99 2 BUN 20 mg/dL High 7 - 18 Creatinine 1.0 mg/dL 0.6 - 1.3 Sodium 137 mEq/L 136 - 145 Potassium 4.5 mEq/L 3.5 - 5.1 Chloride 102 mEq/L 98 - 107 Carbon Dioxide 30 mEq/L 21 - 32 Calcium 9.6 mg/dL 8.5 - 10.1 GFR 53 mL/min Low >60 GFR >= 60 mL/min >60 3 Complete Blood Count 06/29/2021 [facility] Oyster Cultivator: [place] [address] [phone] WBC 4.6 x10*3/UL 4.1 - 10.9 RBC [...] 2.0 - 7.8 Laboratory test finding 06/29/2021 [facility] Oyster Cultivator: [place] [address] [phone] Magnesium 2.1 mg/dL 1.8 - 2.4 Basic Metabolic Panel 06/29/2021 [facility] Oyster Cultivator: [place] [address] [phone] Glucose 88 mg/dL 74 - 99 4 BUN 18 mg/dL 7 - 18 Creatinine 0.9 mg/dL 0.6 - 1.3 Sodium 139 mEq/L 136 - 145 Potassium 4.3 mEq/L 3.5 - 5.1 Chloride 102 mEq/L 98 - 107 Carbon Dioxide 32 mEq/L 21 - 32 Calcium 9.7 mg/dL 8.5 - 10.1 GFR 60 mL/min Low >60 GFR >= 60 mL/min >60 5 Laboratory test finding 06/29/2021 [facility]zman Oyster Cultivator: [place] [address] [phone] Thyroid Stimulating Hormone 3.24 uIU/mL 0.3 6 - 3.74 Complete Blood Count 04/20/2021 [facility] Oyster Cultivator: [place] [address] [phone] WBC 5.4 x10*3/UL 4.1 - 10.9 RBC [...] 2.0 - 7.8 Comprehensive Chem Profile 04/20/2021 [facility] snowden Oyster Cultivator: [place] [address] [phone] Glucose 90 mg/dL 74 - 99 6 BUN 22 mg/dL High 7 - 18 [...] >60 GFR >= 60 mL/min >60 7 Lipid Profile 04/20/2021 [facility] Oyster Cultivator: Dr [place], [place] [id number] [phone] Cholesterol 169 mg/dL 131 - 200 Triglycerides 97 mg/dL 30 - 150 HDL Cholesterol 66 mg/dL High 35 - 60 LDL (Calculated) 84 CALC 50 - 159 Laboratory test finding 04/20/2021 [facility], Oyster Cultivator: [place] [address] [phone] Thyroid Stimulating Hormone 1.95 uIU/mL 0.3 6 - 3.74 Laboratory test finding 04/20/2021 [facility], Oyster Cultivator: [place] [address] [phone] Vitamin D 25-Hydroxy 41.9 ng/ml 24.0 - 80.0 8 1 NOTE: RESULT VERIFIED. 2 100-125 mg/dL PRE-DIABET ES/FASTING >126 mg/dL DIABETES/FASTING 3 CHRONIC KIDNEY DISEASE STAGI NG PER NKF STAGE I & II GFR >= 60 NORMAL TO MILDLY DECREASED STAGE III GFR 30-59 MODERATELY DECREASED STAGE IV GFR 15-29 SEVERELY DECREASED STAGE V GFR <15 VERY LITTLE GFR LEFT ESRD GFR <15 ON [employer] 4 100-125 mg/dL PRE-DIABET ES/FASTING >126 mg/dL DIABETES/FASTING 5 CHRONIC KIDNEY DISEASE STAGI NG PER NKF STAGE I & II GFR >= 60 NORMAL TO MILDLY DECREASED STAGE III GFR 30-59 MODERATELY DECREASED STAGE IV GFR 15-29 SEVERELY DECREASED STAGE V GFR <15 VERY LITTLE GFR LEFT ESRD GFR <15 ON [employer] COACH 6 100-125 mg/dL PRE-DIABET ES/FASTING >126 mg/dL DIABETES/FASTING 7 CHRONIC KIDNEY DISEASE STAGI NG PER NKF STAGE I & II GFR >= 60 NORMAL TO MILDLY DECREASED STAGE III GFR 30-59 MODERATELY DECREASED STAGE IV GFR 15-29 SEVERELY DECREASED STAGE V GFR <15 VERY LITTLE GFR LEFT ESRD GFR <15 ON [employer]ACH 8 This test was performed marcia [employer] Vitamin D immunoassay kit. Values obtained with different assay methods should not be used interchangeably. Procedures Date Code Description Status 07/28/2021 16174 Office/Outpatient Established Mo d MDM 30-39 Min Completed 06/29/2021 47405 Office/Outpatient Established Mo d MDM 30-39 Min Completed 06/03/2021 03628 Chronic Care MGMT 20 Mins Clinical Staff Time Per Calendar Month Completed 05/25/2021 88820 Office/Outpatient Established Mo d MDM 30-39 Min Completed 05/21/2021 [id number] Bone Mineral Density Test [facility] 05/06/2021 68097 Chronic Care MGMT 20 Mins Clinical Staff Time Per Calendar Month Completed 04/20/2021 65297 Office/Outpatient Established Mo d MDM 30-39 Min Completed 04/01/2021 64848 Chronic Care MGMT 20 Mins Clinical Staff Time Per Calendar Month Completed 02/23/2021 74200 Chronic Care MGMT 20 Mins Clinical Staff Time Per Calendar Month Completed 02/23/2021 78507 Chronic Care Management Services Ea Addl 20 Min Completed 03/12/2019 [id number] Bone Mineral Density Test [facility] 08/29/2017 [id number] Diabetic Foot Exam Completed 06/30/2017 [id number] Diabetic Foot Exam Completed 04/27/2017 [id number] Diabetic Retinal Eye Exam [facility] 03/08/2017 [id number] Bone Mineral Density Test [facility] 03/07/2015 [id number] Bone Mineral Density Test [facility] 08/01/2012 [id number] Mammogram Completed 06/26/2010 [id number] Colonoscopy Completed 04/04/2009 [id number] Bone Mineral Density Test [facility] 03/13/2007 [id number] Mammogram Completed 03/01/2007 [id number] Bone Mineral Density Test [facility] 07/08/2006 [id number] Colonoscopy Completed 07/15/2004 [id number] Bone Mineral Density Test [facility] Medical Devices Description No Information Available Encounters Type Date Location Provider Dx Diagnosis Office Visit 07/28/2021 1:15p [facility] R42 Dizziness and giddiness R40.0 Somnolence F32.89 Other specified depressive e pisodes E03.9 Hypothyroidism, unspecified M19.90 Unspecified osteoarthritis, unspecified site I10 Essential (primary) hyperten dianelys M81.0 Age-related osteoporosis w/o current pathological fracture L30.9 Dermatitis, unspecified R04.0 Epistaxis Office Visit 06/29/2021 9:15a [facility] Vieyra M.D. R42 Dizziness and giddiness R40.0 Somnolence F32.89 Other specified depressive e pisodes E03.9 Hypothyroidism, unspecified M19.90 Unspecified osteoarthritis, unspecified site I10 Essential (primary) hyperten dianelys M81.0 Age-related osteoporosis w/o current pathological fracture G47.33 Obstructive sleep apnea (laci lt) (pediatric) L30.9 Dermatitis, unspecified Office Visit 05/25/2021 10[facility] R04.0 Epistaxis I10 Essential (primary) hyperten [...] posterior cerebral artery Office Visit 04/20/2021 [facility] I10 Essential (primary) hyperten dianelys M15.9 [...] u nspecified Assessments Date Code Description Provider 07/28/2021 R42 Dizziness and giddiness Yakelin Vieyra M.D. 07/28/2021 R40.0 Somnolence Yakelin garcia M.D. 07/28/2021 F32.89 Other specified depressive episo bro Yakelin Vieyra M.D. 07/28/2021 E03.9 Hypothyroidism, unspecified Katya Vieyra M.D. 07/28/2021 M19.90 Unspecified osteoarthritis, unsp ecified site Yakelin Vieyra M.D. 07/28/2021 I10 Essential (primary) hypertension Yakelin Vieyra M.D. 07/28/2021 M81.0 Age-related osteoporosis without current pathological fracture Yakelin Vieyra M.D. 07/28/2021 L30.9 Dermatitis, unspecified Yakelin Vieyra M.D. 07/28/2021 R04.0 Epistaxis Yakelin garcia M.D. 06/29/2021 R42 Dizziness and giddiness Yakelin Vieyra [...] 05/25/2021 J30.9 Allergic rhinitis, unspecified J gayle Veiyra M.D. 05/25/2021 E78.00 Pure hypercholesterolemia, unspe cified Yakelin Vieyra M.D. 05/25/2021 Z86.73 Personal history of transient ischemic attack (TIA), and cerebral infarction without residual deficits Yakelin Vieyra M.D. 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 04/20/2021 E03.9 Hypothyroidism, unspecified Katya Veiyra M.D. 04/20/2021 K21.9 Gastro-esophageal reflux disease without [...] 10/21/2021 1:00 pm - JANESSA Elam at [facility] 07/28/2021 - Yakelin Vieyra M.D.* R42 Dizziness and giddiness * R40.0 Somnolence * F32.89 Other specified depressive episodes * E03.9 Hypothyroidism, unspecified * M19.90 Unspecified osteoarthritis, unspecified site * I10 Essential (primary) hypertension * M81.0 Age-related osteoporosis without current pathological fracture * L30.9 Dermatitis, unspecified * R04.0 Epistaxis * All * Comments:* 10. [place]. Continue the CPAP11. Health Maintenance. Flu shot, COVID booster discussed. Functional Status Description No Information Available Mental Status Description No Information Available Referrals Refer to Reason for Referral Status Appt Date Ian Mora MD REFERRAL FOR EYE CARE Created [place] [facility] [address] [facility], [address] [facility] [address] [phone] [facility] Behavioral Health REFERRAL FOR DEPRESSION Created [address] [place] [address] [phone]
--- OUTSIDE RECORDS SUMMARY | 2021-08-29 11:03 | CCD | Continuity of Care Document ---
Author Author Hayde DUDLEY MD Organization Unknown Address [address] [facility] [address] [place] [address] Phone [phone] Care Team Providers Care Renal Dialysis Technician Name Role Phone Yakelin Thapa M.D. AUTM [phone] AUTM Unavailable Problems Active Problems Provider Date [...] SIG Qnty Indications Ordering Provide r Date Ipratropium [place] 0.06% Solution spray 2 sprays in each nostrils two times a day 15units Jeff tim MD 06/08/2021 Polysporin 500-59517Gfaf/GM Ointme nt apply ointment to each nostril three times a day for 10 days 14.200gm Jeff Dudley MD 01/12/2021 Sinus Rinse Bottle Kit Packet use once daily 3Months Jeff Dudley MD 12/05/2020 Polysporin 500-60003Ybki/GM Ointme nt apply ointment to each nostril three times a day for 10 days 14.200gm Jeff Dudley MD 12/05/2020 Saline Mist [place] 0.65% Solution 2 sprays to each nostril 4 times daily as needed 135ml Tyrell Macias MD 11/11/2020 Mupirocin 2% Ointment apply to nose as directed twice a day 22gm Tyrell Macias MD 02/22/20 18 Clopidogrel Bisulfate 75mg Tablets Jacquelyn Mustafa MD Ditropan XL 5mg Tablets ER 24HR 1 [...] po qd Unknown Calcium Citrate + D3 [id number] Tablets 2 po bid Unknown CPAP 6cm [...] CPT Code Status Date Vaccine Lot # [id number] Given 08/05/2010 Influenza Virus Split 3 Yrs And Above For Intramuscular Use 19025 Given 07/21/2010 Pneumococcal PPSV23 Q2036 Refused 09/04/2015 Influenza Vaccine 3 Years Of Age Or Older (Flulaval) Vital Signs Date Vital Result Comment 06/08/2021 12:49pm Height 63 inches 5'3" Weight 168.00 lb BMI (Body Mass Index) 29.8 kg/m2 [place] Body Weight 115 lb Weight 76.205 kg BSA (Body Surface Area) 1.80 m2 04/28/2021 2:05pm Height 63 inches 5'3" Weight 163.00 lb BMI (Body Mass Index) 28.9 kg/m2 [place] Body Weight 115 lb Weight 73.937 kg BSA (Body Surface Area) 1.77 m2 Results Description No Information Available Procedures Date Code Description Status 04/28/2021 40770 Office/Outpatient Established Lo w MDM 20-29 Min Completed Medical Devices Description No Information Available Encounters Type Date Location Provider Dx Diagnosis Office Visit 04/28/2021 1:40p [facility] Jeff Dudley MD R04.0 Epistaxis J31.0 Chronic rhinitis Office Visit 01/12/2021 9:15a [facility] Jeff Dudley MD R04.0 Epistaxis Z48.89 Encounter for other specifie d surgical aftercare Office Visit 12/29/2020 11:30a [facility] Sushil Chowdhury II, PA-C R04.0 Epistaxis Z48.89 Encounter for other specifie d surgical aftercare Assessments Date Code Description Provider 04/28/2021 R04.0 Epistaxis Jeff Dudley MD 04/28/2021 J31.0 Chronic rhinitis Jeff Dudley MD 01/12/2021 R04.0 Epistaxis Jeff Dudley MD 01/12/2021 Z48.89 Encounter for other specified mcneal rgical aftercare Jeff Dudley MD 12/29/2020 R04.0 Epistaxis Sushil Chowdhury II, PA-C 12/29/2020 Z48.89 Encounter for other specified mcneal rgical aftercare Ssuhil Chowdhury II, PA-C Plan of Treatment Future Appointment(s):* 07/20/2021 9:10 am - Jeff Dudley MD at [facility] * 09/21/2021 10:00 am - ALEXANDER Christian at [facility] Pulmonary/Thoracic Functional Status Description No Information Available Mental Status Description No Information Available Referrals Description No Information Available
--- OUTSIDE RECORDS SUMMARY | 2021-08-29 11:03 | CCD | Continuity of Care Document ---
Author Author Hayde DUDLEY MD Organization Unknown Address 6 [facility] [address] [place] [address] Phone [phone] Care Team Providers Care Electrician Wiring Name Role Phone Yakelin Thapa M.D. AUTM [phone] AUTM Unavailable Problems Active Problems Provider Date [...] Qnty Indications Ordering Provide r Date Ipratropium [place] 0.06% Solution spray 2 sprays in each nostrils two times a day 15units Jeff tim MD 06/08/2021 Polysporin 500-23029Ndpr/GM Ointme nt apply ointment to each nostril three times a day for 10 days 14.200gm Jeff Dudley MD 01/12/2021 Sinus Rinse Bottle Kit Packet use once daily 3Months Jeff Dudley MD 12/05/2020 Polysporin 500-24721Hlnp/GM Ointme nt apply ointment to each nostril three times a day for 10 days 14.200gm Jeff Dudley MD 12/05/2020 Saline Mist [place] 0.65% Solution 2 sprays to each nostril [...] po qd Unknown Calcium Citrate + D3 [id number] Tablets 2 po bid Unknown CPAP 6cm [...] CPT Code Status Date Vaccine Lot # [id number] Given 08/05/2010 Influenza Virus Split 3 Yrs And Above For Intramuscular Use 45297 Given 07/21/2010 Pneumococcal PPSV23 Q2036 Refused 09/04/2015 Influenza Vaccine 3 Years Of Age Or Older (Flulaval) Vital Signs Date Vital Result Comment 06/08/2021 12:49pm Height 63 inches 5'3" Weight 168.00 lb BMI (Body Mass Index) 29.8 kg/m2 [place] Body Weight 115 lb Weight 76.205 kg BSA (Body Surface Area) 1.80 m2 04/28/2021 2:05pm Height 63 inches 5'3" Weight 163.00 lb BMI (Body Mass Index) 28.9 kg/m2 [place] Body Weight 115 lb Weight 73.937 kg BSA (Body Surface Area) 1.77 m2 Results Description No Information Available Procedures Date Code Description Status 04/28/2021 81676 Office/Outpatient Established Lo w MDM 20-29 Min Completed Medical Devices Description No Information Available Encounters Type Date Location Provider Dx Diagnosis Office Visit 04/28/2021 1:40p [facility] Jeff Dudley MD R04.0 Epistaxis J31.0 Chronic rhinitis Office Visit 01/12/2021 9:15a [facility] Jeff Dudley MD R04.0 Epistaxis Z48.89 Encounter for other specifie d surgical aftercare Office Visit 12/29/2020 11:30a [facility] Sushil Chowdhury II, PA-C R04.0 [...] Encounter for other specified mcneal rgical aftercare Sushil Chowdhury II, PA-C Plan of Treatment Future Appointment(s):* 07/20/2021 9:10 am - Jeff Dudley MD at [facility] * 09/21/2021 10:00 am - ALEXANDER Christian at [facility] Pulmonary/Thoracic Functional Status Description No Information Available Mental Status Description No Information Available Referrals Description No Information Available
--- OUTSIDE RECORDS SUMMARY | 2021-08-29 11:03 | CCD | Continuity of Care Document ---
Author Author Hayde DUDLEY MD Organization Unknown Address 6 [facility] [address] [place] [address] Phone [phone] Care Team Providers Care Dormitory Supervisor Name Role Phone Yakelin Thapa M.D. AUTM [phone] AUTM Unavailable Problems Active Problems Provider Date [...] Qnty Indications Ordering Provide r Date Ipratropium [place] 0.06% Solution spray 2 sprays in each nostrils two times a day 15units Jeff tim MD 06/08/2021 Polysporin 500-84275Qrzo/GM Ointme nt apply ointment to each nostril three times a day for 10 days 14.200gm Jeff Dudley MD 01/12/2021 Sinus Rinse Bottle Kit Packet use once daily 3Months Jeff Dudley MD 12/05/2020 Polysporin 500-26798Exeq/GM Ointme nt apply ointment to each nostril three times a day for 10 days 14.200gm Jeff Dudley MD 12/05/2020 Saline Mist [place] 0.65% Solution 2 sprays to each nostril [...] po qd Unknown Calcium Citrate + D3 [id number] Tablets 2 po bid Unknown CPAP 6cm [...] CPT Code Status Date Vaccine Lot # 04128 Given 08/05/2010 Influenza Virus Split 3 Yrs And Above For Intramuscular Use 00792 Given 07/21/2010 Pneumococcal PPSV23 Q2036 Refused 09/04/2015 Influenza Vaccine 3 Years Of Age Or Older (Flulaval) Vital Signs Date Vital Result Comment 06/08/2021 12:49pm Height 63 inches 5'3" Weight 168.00 lb BMI (Body Mass Index) 29.8 kg/m2 [place] Body Weight 115 lb Weight 76.205 kg BSA (Body Surface Area) 1.80 m2 04/28/2021 2:05pm Height 63 inches 5'3" Weight 163.00 lb BMI (Body Mass Index) 28.9 kg/m2 [place] Body Weight 115 lb Weight 73.937 kg BSA (Body Surface Area) 1.77 m2 Results Description No Information Available Procedures Date Code Description Status 06/08/2021 81870 Office/Outpatient Established Mo d MDM 30-39 Min Completed 04/28/2021 07590 Office/Outpatient Established Lo w MDM 20-29 Min Completed Medical Devices Description No Information Available Encounters Type Date Location Provider Dx Diagnosis Office Visit 06/08/2021 1:00p [facility] Jeff Dudley MD J31.0 Chronic rhinitis Office Visit 04/28/2021 1:40p [facility] Jeff Dudley MD R04.0 Epistaxis J31.0 Chronic rhinitis Office Visit 01/12/2021 9:15a [facility] Jeff Dudley MD R04.0 Epistaxis Z48.89 Encounter for other specifie d surgical aftercare Office Visit 12/29/2020 11:30a [facility] Sushil Chowdhury II, PA-C R04.0 Epistaxis Z48.89 Encounter for other specifie d surgical aftercare Assessments Date Code Description Provider 06/08/2021 J31.0 Chronic rhinitis Jeff Dudley MD [...] 9:10 am - Jeff Dudley MD at [facility] * 09/21/2021 10:00 am - ALEXANDER Christian at [facility] Pulmonary/Thoracic 06/08/2021 - Jeff Dudley MD* J31.0 Chronic rhinitis * All * New Medication:* Ipratropium [place] 0.06 % - spray 2 sprays in each nostrils two times a day Functional Status Description No Information Available Mental Status Description No Information Available Referrals Description No Information Available
--- OUTSIDE RECORDS SUMMARY | 2021-08-29 11:03 | CCD | Continuity of Care Document ---
Author Author Hayde Vieyra M.D. Organization Unknown Address [address] [facility] [address] [place] [address] Phone [phone] Care Team Providers Care Sanitation Director Name Role Phone Abdirizak Martin MD AUTM [phone] Raul Tierney DO AUTM [phone] Anne Jalloh OD AUTM Unavailable Ian Mora MD AUTM [phone] Yakelin Vieyra MD AUTM [phone] Chinmay Nieto DPM AUTM [phone] [facility] Physica AUTM [phone] Margie Cohen Abdul AUTM [phone] [facility] Sara AUTM [phone] Problems Active Problems Provider Date Benign essential [...] packet in 8oz. of water a day 30unneeraj Vieyra M.D. 10/07 Fiber Powder 3.4 gms qd 35 0gm Yakelin Vieyra M.D. 06/19/2019 Biotene Dry Mouth Liquid 1 spray four times a day as needed dry mouth 1Bjuaquin Murillo M.D. 12/18/2018 Refresh Tears 0.5% Solution 1 drops into both eyes 3 times a day (dry eyes) 30units JANESSA Leblanc 12/18/2018 Milk Of Magnesia 400mg/5ML Suspens ion 30mls by mouth daily /prn/ constipation 1Bjuaquin Vieyra M.D. 10/24/2018 Levothyroxine Sodium 125mcg Tablet s 1/2 tab by mouth every day 15tadavid Vieyra M.D. 1 12/19/2017 Loratadine 10mg Tablets 1 by mouth every day 30tadavid Vieyra M.D. 07/05/20 18 Oxybutynin Chloride ER 5mg Tablets ER 24HR 1 by mouth every day 90tabs Juan Ramon Willingham 06/22/2018 Pantoprazole Sodium 20mg Tablets D R 1 by mouth daily 30tabs Yakelin Vieyra M.D. 06/22/20 18 Spacer For Mdi use as directed 1unJulien Garcai CHIEF ADMINISTRATIVE OFFICER 11/30/2017 Ventolin HFA 108(90Base) mcg/Act A erosol [...] as needed burping 120unneeraj Vieyra M.D. 05/17/2017 Meclizine HCL 25mg Tablets take one tablet by mouth every 6 hours as needed dizziness 30tabs Yakelin Vieyra M.D. 02/22/2017 Tussin DM 100-10mg/5ML Liquid give 10cc by mouth as needed every 4 hours for cough 118ml Yakelin Vieyra M.D. 01/28/2017 Lumbar Support Cushion [facility] prn Yakelin Vieyra M.D. 12/01/2015 Aspercreme W/Lidocaine 4% Cream apply a thin layer to left thigh bid 1unneeraj Vieyra M.D. 11/27/2015 Restasis 0.05% Emulsion 1 drop both eyes twice a day further refills must come from eye drMaxx 120unneeraj Vieyra M.D. 09/08/2015 Saline Nasal [place] 0.65% Solution 2 sprays each nostril q 6hrs prn dry nose 1unRuchi Johns FNP 08/26/2015 Meredith Brock W/ Sit [facility] prn Yakelin Vieyra M.D. 08/26/[address] HCL [address] Bessie take 1 capsule daily by mouth with [...] Unknown 12/01/2020 Administration Of Flu Vaccine Inj ection Yakelin Vieyra M.D. 07/21/20 20 Administration Of Flu Vaccine Inj ection Rashel Conn, PLASTIC INJECTION MOLD MAKER 08/31/2017 Administration Of Flu Vaccine Inj ection Yakelin Vieyra M.D. 09/21/20 10 Administration Of Flu Vaccine Inj ection Ruchi Jeronimo,PLASTIC INJECTION MOLD MAKER 08/20/2008 Administration Of Flu Vaccine Inj ection Ruchi Jeronimo,PLASTIC INJECTION MOLD MAKER 08/31/2007 Administration Of Flu Vaccine Inj ection Yakelin Vieyra M.D. 08/31/20 04 Administration Of Flu Vaccine Inj kassyion Yakelin Vieyra M.D. 09/26/20 03 Immunizations CPT Code Status Date Vaccine Reaction Lot # [id number] Given 07/21/2020 Influenza Vaccin e Quadrivalent Preser/Antibiotic Free Im Use [id number] U-Flu Given 09/02/2018 Influenza,Unspecified 74166 Given 08/31/2017 Influenza Vaccin e Quadrivalent Preser/Antibiotic Free Im Use [id number] 20932 Given 12/06/2016 Adacel- Tetanus Diphtheria Pertussis (Age64 & Under) [id number] 42448 Given 08/25/2015 PPD 08-27-15 omm negative C [id number] 92920 Given 01/23/2015 Prevnar 13 [id number] 12674 Given 09/21/2010 Influenza Virus Vaccine 80289 Given 12/16/2008 Pneumovax 23 03894 Given 08/20/2008 Influenza Virus Vaccine 08257 Given 08/31/2007 Influenza Virus Vaccine 25175 Given 08/31/2004 Influenza Virus Vaccine 41555 Given 09/26/2003 Influenza Virus Vaccine 10752 Given 09/04/2002 Influenza Virus Vaccine 42826 Given 08/09/2001 Influenza Virus Vaccine Vital Signs Date Vital Result Comment 06/29/2021 9:27am BP Systolic 144 mmHg RT Arm BP Diastolic 80 mmHg RT Arm Heart Rate 80 /min Height 62.75 inches 5'2.75" Weight 169.12 lb BMI (Body Mass Index) 30.2 kg/m2 05/25/2021 10:01am BP Systolic 112 mmHg RT Arm BP Diastolic 84 mmHg RT Arm Heart Rate 84 /min Height 62.75 inches 5'2.75" Weight 170.12 lb BMI (Body Mass Index) 30.4 kg/m2 Results Test Acquired Date Facility Test Result H/L Range Note Laboratory test finding 06/29/2021 [facility] [employer] Manufacturing Sales Representative: Dr Sharif Perez [place] [id number] [phone] Magnesium, Serum <pending> Laboratory test finding 06/29/2021 [facility] [employer] Sales Representative[facility] [place] [id number] [phone] TSH <pending> Complete Blood Count 04/20/2021 [facility] [employer] Sales Representative: [place] [address] [phone] WBC 5.4 x10*3/UL 4.1 - 10.9 RBC [...] 2.0 - 7.8 Comprehensive Chem Profile 04/[facility]21 [facility] [employer] Sales Representative: [place] [address] [phone] Glucose 90 mg/dL 74 - 99 1 BUN 22 mg/dL High 7 - 18 [...] >60 GFR >= 60 mL/min >60 2 Lipid Profile 04/20/2021 [facility] , Manufacturing Sales Representative: Dr Sharif Perez [place] [id number] [phone] Cholesterol 169 mg/dL 131 - 200 Triglycerides 97 mg/dL 30 - 150 HDL Cholesterol 66 mg/dL High 35 - 60 LDL (Calculated) 84 CALC 50 - 159 Laboratory test finding 04/20/2021 [facility], Manufacturing Sales Representative: [place] [address] [phone] Thyroid Stimulating Hormone 1.95 uIU/mL 0.3 6 - 3.74 Laboratory test finding 04/20/2021 [facility]gan Manufacturing Sales Representative: Dr Sharif Perez [place] [id number] [phone] Vitamin D 25-Hydroxy 41.9 ng/ml 24.0 - 80.0 3 Complete Blood Count 01/22/2021 [facility], Manufacturing Sales Representative: [place] [address] [phone] WBC 4.9 x10*3/UL 4.1 - 10.9 RBC 3.77 x10*6/UL Low 4.20 - 6.30 Hemoglobin 12.3 g/dL 12.0 - 18.0 Hematocrit 35.8 % Low 37.0 - 51.0 MCV 94.9 fL 80.0 - 97.0 MCH 32.6 pg High 26.0 - 32.0 MCHC 34.4 g/dL 31.0 - 38.0 RDW 14.0 % High 11.6 - 13.7 PLT 287 x10*3/UL 140 - 440 MPV 8.1 FL 7.8 - 11.0 Lymph % 33.2 % 10.0 - 58.5 Mid % 7.8 % 1.7 - 9.3 Neut % 59.0 % 37.0 - 92.0 Lymph # 1.6 x10*3/UL 0.6 - 4.1 Mid # 0.4 x10*3/UL 0.1 - 0.6 Neut # 2.9 x10*3/UL 2.0 - 7.8 1 100-125 mg/dL PRE-DIABET ES/FASTING >126 mg/dL DIABETES/FASTING 2 CHRONIC KIDNEY DISEASE STAGI NG PER NKF STAGE I & II GFR >= 60 NORMAL TO MILDLY DECREASED STAGE III GFR 30-59 MODERATELY DECREASED STAGE IV GFR 15-29 SEVERELY DECREASED STAGE V GFR <15 VERY LITTLE GFR LEFT ESRD GFR <15 ON SPORTS MANAGEMENT PROFESSOR 3 This test was performed Shhmooze Vitamin D immunoassay kit. Values obtained with different assay methods should not be used interchangeably. Procedures Date Code Description Status 05/25/2021 41497 Office/Outpatient Established Mo d MDM 30-39 Min Completed 05/21/2021 [id number] Bone Mineral Density Test [facility] 05/06/2021 46722 Chronic Care MGMT 20 Mins Clinical Staff Time Per Calendar Month Completed 04/20/2021 86676 Office/Outpatient Established Mo d MDM 30-39 Min Completed 04/01/2021 50624 Chronic Care MGMT 20 Mins Clinical Staff Time Per Calendar Month Completed 02/23/2021 16403 Chronic Care MGMT 20 Mins Clinical Staff Time Per Calendar Month Completed 02/23/2021 76892 Chronic Care Management Services Ea Addl 20 Min Completed 01/22/2021 42144 Office/Outpatient Established Mo d MDM 30-39 Min Completed 01/01/2021 86648 Office/Outpatient Established Mo d MDM 30-39 Min Completed 03/12/2019 [id number] Bone Mineral Density Test Comple [facility] 08/29/2017 [id number] Diabetic Foot Exam Completed 06/30/2017 [id number] Diabetic Foot Exam Completed 04/27/2017 [id number] Diabetic Retinal Eye Exam Comple [facility] 03/08/2017 [id number] Bone Mineral Density Test Comple [facility] 03/07/2015 [id number] Bone Mineral Density Test Comple [facility] 08/01/2012 [id number] Mammogram Completed 06/26/2010 [id number] Colonoscopy Completed 04/04/2009 [id number] Bone Mineral Density Test Comple [facility] 03/13/2007 [id number] Mammogram Completed 03/01/2007 [id number] Bone Mineral Density Test Comple [facility] 07/08/2006 [id number] Colonoscopy Completed 07/15/2004 663566662 Bone Mineral Density Test Comple [facility] Medical Devices Description No Information Available Encounters Type Date Location Provider Dx Diagnosis Office Visit [facility]21 [facility] R[facility].0 Epistaxis I10 Essential (primary) hyperten [...] posterior cerebral artery Office Visit 04/20/2021 11[facility] M.[facility] I10 Essential (primary) hyperten dianelys M15.9 Polyosteoarthritis, unspecif ied E03.9 Hypothyroidism, unspecified K21.9 Gastro-esophageal reflux dis ease without esophagitis M81.0 Age-related osteoporosis w/o current pathological fracture G47.33 Obstructive sleep apnea (laci lt) (pediatric) H91.93 Unspecified hearing loss, bi lateral F32.89 Other specified depressive e pisodes K59.00 Constipation, unspecified R04.0 Epistaxis J30.9 Allergic rhinitis, unspecifi ed E78.00 Pure hypercholesterolemia, u nspecified Office Visit 01/22/2021 1:15p [facility] M[facility] 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 Ronak Vieyra M.D. 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 05/25/2021 [...] reflux disease without esophagitis Yakelin Vieyra M.D. 01/22/2021 R04.0 Epistaxis Yakelin garcia M.D. 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 01/22/2021 F32.89 Other specified depressive episo bro Yakelin Vieyra M.D. 01/22/2021 M19.90 Unspecified osteoarthritis, unsp ecified site Yakelin Vieyra M.D. 01/22/2021 E03.9 Hypothyroidism, unspecified Katya Vieyra M.D. 01/22/2021 I10 Essential (primary) hypertension Yakelin Vieyra M.D. 01/22/2021 D64.9 Anemia, unspecified Yakelin aggarwal M.D. 01/22/2021 G31.84 Mild cognitive impairment, so st ated Yakelin Vieyra M.D. 01/22/2021 K59.00 Constipation, unspecified Yakelin Vieyra M.D. 01/22/2021 Z86.16 Personal history of Covid-19 Ronak Vieyra M.D. 01/22/2021 R63.4 Abnormal weight loss Yakelin Drew M.D. 01/01/2021 R04.0 Epistaxis Yakelin garcia M.D. 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 01/01/2021 F32.89 Other specified depressive episo bro Yakelin Vieyra M.D. 01/01/2021 M19.90 Unspecified osteoarthritis, unsp ecified site Yakelin Vieyra M.D. Plan of Treatment Future Appointment(s):* 10/21/2021 1:00 pm - JANESSA Elam at [facility] * 07/28/2021 1:15 pm - Yakelin Vieyra M.D. at [facility] 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
--- OUTSIDE RECORDS SUMMARY | 2021-08-29 11:03 | CCD | Continuity of Care Document ---
Author Author Hayde DUDLEY MD Organization Unknown Address [address] [facility] [address] [place] [address] Phone [phone] Care Team Providers Care Photography And Prints Curator Name Role Phone Yakelin Thapa M.D. AUTM [phone] AUTM Unavailable Problems Active Problems Provider Date [...] 26y. Allergies, Adverse Reactions, Alerts Active Allergies Criticality Reaction | Severity Comments Date Adhesives Unable to assess criticality 02/14/2012 Medications Active Medications SIG Qnty Indications Ordering Provide r Date Ipratropium [place] 0.06% Solution spray 2 sprays in each nostrils two times a day 15units Jeff tim MD 06/08/2021 Polysporin 500-34795Rdji/GM Ointme nt apply ointment to each nostril three times a day for 10 days 14.200gm Jeff Dudley MD 01/12/2021 Sinus Rinse Bottle Kit Packet use once daily 3Months Jeff Dudley MD 12/05/2020 Polysporin 500-33970Jiud/GM Ointme nt apply ointment to each nostril three times a day for 10 days 14.200gm Jeff Dudley MD 12/05/2020 Saline Mist [place] 0.65% Solution 2 sprays to each nostril [...] po qd Unknown Calcium Citrate + D3 [id number] Tablets 2 po bid Unknown CPAP 6cm [...] CPT Code Status Date Vaccine Lot # [id number] Given 08/05/2010 Influenza Virus Split 3 Yrs And Above For Intramuscular Use 14639 Given 07/21/2010 Pneumococcal PPSV23 [id number] Refused 09/04/2015 Influenza Vaccine 3 Years Of Age Or Older (Flulaval) Vital Signs Date Vital Result Comment 07/20/2021 8:28am Height 63 inches 5'3" Weight 167.00 lb BMI (Body Mass Index) 29.6 kg/m2 [place] Body Weight 115 lb Weight 75.751 kg BSA (Body Surface Area) 1.79 m2 06/08/2021 12:49pm Height 63 inches 5'3" Weight 168.00 lb BMI (Body Mass Index) 29.8 kg/m2 [place] Body Weight 115 lb Weight 76.205 kg BSA (Body Surface Area) 1.80 m2 Results Description No Information Available Procedures Date Code Description Status 06/08/2021 43160 Office/Outpatient Established Mo d MDM 30-39 Min Completed 04/28/2021 18712 Office/Outpatient Established Lo w MDM 20-29 Min Completed Medical Devices Description No Information Available Encounters Type Date Location Provider Dx Diagnosis Office Visit 06/08/2021 1:00p [facility] Jeff Dudley MD J31.0 Chronic rhinitis Office Visit 04/28/2021 1:40p [facility] Jeff Dudley MD R04.0 Epistaxis J31.0 Chronic rhinitis Assessments Date Code Description Provider 06/08/2021 J31.0 Chronic rhinitis Jeff Dudley MD 04/28/2021 R04.0 Epistaxis Jeff Dudley MD 04/28/2021 J31.0 Chronic rhinitis Jeff Dudley MD Plan of Treatment Future Appointment(s):* 09/21/2021 10:00 am - ALEXANDER Christian at [facility] Pulmonary/Thoracic Functional Status Description No Information Available Mental Status Description No Information Available Referrals Description No Information Available
--- OUTSIDE RECORDS SUMMARY | 2021-08-29 11:03 | CCD | Continuity of Care Document ---
Author Author Hayde Vieyra M.D. Organization Unknown Address [address] [facility] [address] [place] [address] Phone [phone] Care Team Providers Care Cathead Operator Name Role Phone Abdirizak Martin MD AUTM [phone] Raul Tierney DO AUTM [phone] Anne Jalloh OD AUTM Unavailable Ian Mora MD AUTM [phone] Yakelin Vieyra MD AUTM [phone] Chinmay Nieto DPM AUTM [phone] [facility] AUTM [phone] Margie Cohen Abdul AUTM [phone] [facility] Sara AUTM [phone] Problems Active Problems Provider Date Benign essential [...] Spacer For Mdi use as directed 1unJulien Garcia VACUUM REPAIRER 11/30/2017 Ventolin HFA 108(90Base) mcg/Act A erosol [...] drMaxx 120unneeraj Vieyra M.D. 09/08/2015 Saline Nasal [place] 0.65% Solution 2 sprays each nostril q 6hrs prn dry nose 1unRuchi Johns FNP 08/26/2015 Meredith Brock [place] [facility] [place] Yakelin Vieyra M.D. 08/26/2015 Duloxetine [...] Of Flu Vaccine Inj ection Rashel Conn, MOBILE APPLICATION ARCHITECT 08/31/2017 Administration Of Flu Vaccine Inj ection Yakelin Vieyra M.D. 09/21/20 10 Administration Of Flu Vaccine Inj ection Ruchi Jeronimo,MOBILE APPLICATION ARCHITECT 08/20/2008 Administration Of Flu Vaccine Inj ection Ruchi Jeronimo,MOBILE APPLICATION ARCHITECT 08/31/2007 Administration Of Flu Vaccine Inj ection Yakelin Vieyra M.D. 08/31/20 04 Administration Of Flu Vaccine Inj kassyion Yakelin Vieyra M.D. 09/26/20 03 Immunizations CPT Code Status Date Vaccine Reaction Lot # [id number] Given 07/21/2020 Influenza Vaccin e Quadrivalent Preser/Antibiotic Free Im Use [id number] U-Flu Given 09/02/2018 Influenza,Unspecified 13304 Given 08/31/2017 Influenza Vaccin e Quadrivalent Preser/Antibiotic Free Im Use [id number] 03202 Given 12/06/2016 Adacel- Tetanus Diphtheria Pertussis (Age64 & Under) [id number] 55745 Given 08/25/2015 PPD 08-27-15 omm negative C [id number] 80229 Given 01/23/2015 Prevnar 13 [id number] 67380 Given 09/21/2010 Influenza Virus Vaccine 35661 Given 12/16/2008 Pneumovax 23 14723 Given 08/20/2008 Influenza Virus Vaccine 96679 Given 08/31/2007 Influenza Virus Vaccine 12337 Given 08/31/2004 Influenza Virus Vaccine 68588 Given 09/26/2003 Influenza Virus Vaccine 74148 Given 09/04/2002 Influenza Virus Vaccine 55585 Given 08/09/2001 Influenza Virus Vaccine Vital Signs [...] H/L Range Note Complete Blood Count 06/29/2021 [facility] Sales And Service Agent: [place] [address] [phone] WBC 4.6 x10*3/UL 4.1 - 10.9 RBC [...] 2.0 - 7.8 Laboratory test finding 06/29/2021 [facility] Sales And Service Agent: [place] [address] [phone] Magnesium 2.1 mg/dL 1.8 - 2.4 Basic Metabolic Panel 06/29/2021 [facility] Sales And Service Agent: [place] [address] [phone] Glucose 88 mg/dL 74 - 99 1 [...] mL/min >60 2 Laboratory test finding 06/29/2021 [facility] kina guzman Sales And Service Agent: [place] [address] [phone] Thyroid Stimulating Hormone 3.24 uIU/mL 0.3 6 - 3.74 Complete Blood Count 04/20/2021 [facility] Watson Sales And Service Agent: [place] [address] [phone] WBC 5.4 x10*3/UL 4.1 - 10.9 RBC [...] 2.0 - 7.8 Comprehensive Chem Profile 04/20/2021 [facility] Rodriguez Sales And Service Agent: [place] [address] [phone] Glucose 90 mg/dL 74 - 99 3 [...] 60 mL/min >60 4 Lipid Profile 04/20/2021 [facility] , Sales And Service Agent: [place] [address] [phone] Cholesterol 169 mg/dL 131 - 200 Triglycerides 97 mg/dL 30 - 150 HDL Cholesterol 66 mg/dL High 35 - 60 LDL (Calculated) 84 CALC 50 - 159 Laboratory test finding 04/20/2021 [facility] megan Sales And Service Agent: [place] [address] [phone] Thyroid Stimulating Hormone 1.95 uIU/mL 0.3 6 - 3.74 Laboratory test finding 04/20/2021 [facility] megan Sales And Service Agent: [place] [address] [phone] Vitamin D 25-Hydroxy 41.9 ng/ml 24.0 - 80.0 5 Complete Blood Count 01/22/2021 [facility], Sales And Service Agent: [place] [address] [phone] WBC 4.9 x10*3/UL 4.1 - 10.9 RBC [...] LITTLE GFR LEFT ESRD GFR <15 ON STABILIZING MACHINE OPERATOR 3 100-125 mg/dL PRE-DIABET ES/FASTING >126 mg/dL DIABETES/FASTING 4 CHRONIC KIDNEY DISEASE STAGI NG PER NKF STAGE I & II GFR >= 60 NORMAL TO MILDLY DECREASED STAGE III GFR 30-59 MODERATELY DECREASED STAGE IV GFR 15-29 SEVERELY DECREASED STAGE V GFR <15 VERY LITTLE GFR LEFT ESRD GFR <15 ON STABILIZING MACHINE OPERATOR 5 This test was performed [employer] Vitamin D immunoassay kit. Values obtained with different assay methods should not be used interchangeably. Procedures Date Code Description Status 06/29/2021 92474 Office/Outpatient Established Mo d MDM 30-39 Min Completed 05/25/2021 31781 Office/Outpatient Established Mo d MDM 30-39 Min Completed 05/21/2021 [id number] Bone Mineral Density Test Comple earl 05/06/2021 81351 Chronic Care MGMT 20 Mins Clinical Staff Time Per Calendar Month Completed 04/20/2021 39360 Office/Outpatient Established Mo d MDM 30-39 Min Completed 04/01/2021 75641 Chronic Care MGMT 20 Mins Clinical Staff Time Per Calendar Month Completed 02/23/2021 16587 Chronic Care MGMT 20 Mins Clinical Staff Time Per Calendar Month Completed 02/23/2021 74157 Chronic Care Management Services Ea Addl 20 Min Completed 01/22/2021 14636 Office/Outpatient Established Mo d MDM 30-39 Min Completed 03/12/2019 463636022 Bone Mineral Density Test Comple earl 08/29/2017 402290606 Diabetic Foot Exam Completed 06/30/2017 946342561 Diabetic Foot Exam Completed 04/27/2017 177686503 Diabetic Retinal Eye Exam Comple [facility] 03/08/2017 621140917 Bone Mineral Density Test Comple [facility] 03/07/2015 892760760 Bone Mineral Density Test Comple [facility] 08/01/2012 03189544 Mammogram Completed 06/26/2010 70000235 Colonoscopy Completed 04/04/2009 831128612 Bone Mineral Density Test Comple ear[facility] 03/13/2007 50012110 Mammogram Completed 03/01/2007 860867729 Bone Mineral Density Test Comple [facility] 07/08/2006 58889694 Colonoscopy Completed 07/15/2004 474316201 Bone Mineral Density Test Comple [facility] Medical Devices Description No Information Available Encounters Type Date Location Provider Dx Diagnosis Office Visit 06/29/2021 9:15a [facility] PMaxxCMaxx Vieyra M.D. R42 Dizziness and giddiness R40.0 Somnolence F32.89 Other specified depressive e pisodes E03.9 Hypothyroidism, unspecified M19.90 Unspecified osteoarthritis, unspecified site I10 Essential (primary) hyperten dianelys M81.0 Age-related osteoporosis w/o current pathological fracture G47.33 Obstructive sleep apnea (laci lt) (pediatric) L30.9 Dermatitis, unspecified Office Visit 05/25/2021 10:00a [facility] PB[facility]nu Vieyra M.D. R04.0 Epistaxis I10 Essential [...] posterior cerebral artery Office Visit 04/20/2021 11:00a [facility] Vieyra M.D. I10 Essential (primary) [...] hypercholesterolemia, u nspecified Office Visit 01/22/2021 1:15p [facility] Ronak Vieyra M.D. 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 05/25/2021 R04.0 Epistaxis [...] #2 04/20/2021 I10 Essential (primary) hypertension Yakelin Vieyar M.D. 04/20/2021 M15.9 Polyosteoarthritis, unspecified Yakelin Vieyra [...] M.D. 01/22/2021 F32.89 Other specified depressive episo rbo Yakelin Vieyra M.D. 01/22/2021 M19.90 Unspecified osteoarthritis, unsp ecified site Yakelin Vieyra M.D. 01/22/2021 E03.9 Hypothyroidism, unspecified Katya Vieyra M.D. 01/22/2021 I10 Essential (primary) hypertension Ykaelin Vieyra M.D. 01/22/2021 D64.9 Anemia, unspecified Yakelin aggarwal M.D. 01/22/2021 G31.84 Mild cognitive impairment, so st ated Yakelin Vieyra M.D. 01/22/2021 K59.00 Constipation, unspecified Yakelin Vieyra M.D. 01/22/2021 Z86.16 Personal history of Covid-19 Ronak Vieyra M.D. 01/22/2021 R63.4 Abnormal weight loss Yakelin Drew M.D. Plan of Treatment Future Appointment(s):* 10/21/2021 1:00 pm - JANESSA Elam at [facility] * 07/28/2021 1:15 pm - Yakelin Vieyra M.D. at [facility] 06/29/2021 - Yakelin Vieyra M.D.* R42 Dizziness and giddiness * R40.0 Somnolence * F32.89 Other specified depressive episodes * E03.9 Hypothyroidism, unspecified * M19.90 Unspecified osteoarthritis, unspecified site * I10 Essential (primary) hypertension * M81.0 Age-related osteoporosis without current pathological fracture * G47.33 Obstructive sleep apnea (adult) (pediatric) * L30.9 Dermatitis, unspecified * All * New Medication:* Gabapentin 400 mg - take 1 capsule by mouth at bedtime Functional Status Description No Information Available Mental Status Description No Information Available Referrals Refer to Reason for Referral Status Appt Date Ian Mora MD REFERRAL FOR EYE CARE Created [facility] [address] [facility], [address] [facility] [id number] [phone] [facility] REFERRAL FOR DEPRESSION Created [address] [place] [address] [phone]
--- OUTSIDE RECORDS SUMMARY | 2021-08-29 11:03 | CCD | Continuity of Care Document ---
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 AUTM [phone] AUTM Unavailable Problems Active Problems Provider Date [...] Qnty Indications Ordering Provide r Date Ipratropium [place] 0.06% Solution spray 2 sprays in each nostrils two times a day 15units Jeff tim MD 06/08/2021 Polysporin 500-99097Mzkd/GM Ointme nt apply ointment to each nostril three times a day for 10 days 14.200gm Jeff Dudley MD 01/12/2021 Sinus Rinse Bottle Kit Packet use once daily 3Months Jeff Dudley MD 12/05/2020 Polysporin 500-19083Ncls/GM Ointme nt apply ointment to each nostril three times a day for 10 days 14.200gm Jeff Dudley MD 12/05/2020 Saline Mist [place] 0.65% Solution 2 sprays to each nostril [...] po qd Unknown Calcium Citrate + D3 [id number] Tablets 2 po bid Unknown CPAP 6cm [...] CPT Code Status Date Vaccine Lot # [id number] Given 08/05/2010 Influenza Virus Split 3 Yrs And Above For Intramuscular Use 33299 Given 07/21/2010 Pneumococcal PPSV23 [id number] Refused 09/04/2015 Influenza Vaccine 3 Years Of Age Or Older (Flulaval) Vital Signs Date Vital Result Comment 07/20/2021 8:28am Height 63 inches 5'3" Weight 167.00 lb BMI (Body Mass Index) 29.6 kg/m2 [place] Body Weight 115 lb Weight 75.751 kg BSA (Body Surface Area) 1.79 m2 06/08/2021 12:49pm Height 63 inches 5'3" Weight 168.00 lb BMI (Body Mass Index) 29.8 kg/m2 [place] Body Weight 115 lb Weight 76.205 kg BSA (Body Surface Area) 1.80 m2 Results Description No Information Available Procedures Date Code Description Status 07/20/2021 92591 Office/Outpatient Established Lo w MDM 20-29 Min Completed 06/08/2021 40473 Office/Outpatient Established Mo d MDM 30-39 Min Completed 04/28/2021 29016 Office/Outpatient Established Lo w MDM 20-29 Min Completed Medical Devices Description No Information Available Encounters Type Date Location Provider Dx Diagnosis Office Visit 07/20/2021 9:10a [facility] Jeff Dudley MD J31.0 Chronic rhinitis Office Visit 06/08/2021 1:00p [facility] Jeff Dudley MD J31.0 Chronic rhinitis Office Visit 04/28/2021 1:40p [facility] Jeff Dudley MD R04.0 Epistaxis J31.0 Chronic rhinitis Assessments Date Code Description Provider 07/20/2021 J31.0 Chronic rhinitis Jeff Dudley MD 06/08/2021 J31.0 Chronic rhinitis Jeff Dudley MD 04/28/2021 R04.0 Epistaxis Jeff Dudley MD 04/28/2021 J31.0 Chronic rhinitis Jeff Dudley MD Plan of Treatment Future Appointment(s):* 08/19/2021 1:30 pm - Jeff Dudley MD at [facility] * 09/21/2021 10:00 am - ALEXANDER Christian at [facility] Pulmonary/Thoracic 07/20/2021 - Jeff Dudley MD* J31.0 Chronic rhinitis Functional Status Description No Information Available Mental Status Description No Information Available Referrals Description No Information Available
--- OUTSIDE RECORDS SUMMARY | 2021-08-29 11:05 | CCD ---
Author Author [facility] Organization [facility] Address Unknown Phone Unavailable Care Team Providers Care Manager Chemical Name Role Phone [place], Lorna FEATHER MIXER Unavailable Unavailable [place], Lorna FEATHER MIXER Unavailable Unavailable [place], Lorna FEATHER MIXER Unavailable Unavailable [place], Lorna FEATHER MIXER Unavailable Unavailable [place], Lorna FEATHER MIXER Unavailable Unavailable [place], Lorna FEATHER MIXER Unavailable Unavailable [place], Lorna FEATHER MIXER Unavailable Unavailable [place], Lorna FEATHER MIXER Unavailable Unavailable [place], Lorna FEATHER MIXER Unavailable Unavailable [place], Lorna FEATHER MIXER Unavailable Unavailable [place], Lorna FEATHER MIXER Unavailable Unavailable [place], Lorna FEATHER MIXER Unavailable Unavailable [place], Lorna FEATHER MIXER Unavailable Unavailable [place], Lorna FEATHER MIXER Unavailable Unavailable [place], Lorna FEATHER MIXER Unavailable Unavailable [place], Lorna FEATHER MIXER Unavailable Unavailable [place], Lorna FEATHER MIXER Unavailable Unavailable [place], Lorna FEATHER MIXER Unavailable Unavailable [place], Lorna FEATHER MIXER Unavailable Unavailable [place], Lorna FEATHER MIXER Unavailable Unavailable [place], Lorna FEATHER MIXER Unavailable Unavailable [place], Lorna FEATHER MIXER Unavailable Unavailable [place], Lorna FEATHER MIXER Unavailable Unavailable [place], Lorna FEATHER MIXER Unavailable Unavailable [place], Lorna FEATHER MIXER Unavailable Unavailable [place], Lorna FEATHER MIXER Unavailable Unavailable [place], Lorna FEATHER MIXER Unavailable Unavailable [place], Lorna FEATHER MIXER Unavailable Unavailable [place], Lorna FEATHER MIXER Unavailable Unavailable [place], Lorna FEATHER MIXER Unavailable Unavailable [place], Lorna FEATHER MIXER Unavailable Unavailable [place], Lorna FEATHER MIXER Unavailable Unavailable [place], Lorna FEATHER MIXER Unavailable Unavailable [place], Lorna FEATHER MIXER Unavailable Unavailable [place], Lorna FEATHER MIXER Unavailable Unavailable Moises Rose MD Unavailable Unavailable Moises Rose MD Unavailable Unavailable Moises Rose MD Unavailable Unavailable Moises Rose MD Unavailable Unavailable Moises Rose MD Unavailable Unavailable Moises Rose MD Unavailable Unavailable Maria Isabel Macias MD Unavailable Unavailable Maria Isabel Macias MD Unavailable Unavailable Maria Isabel Macias MD Unavailable Unavailable Maria Isabel Macias MD Unavailable Unavailable Maria Isabel Macias MD Unavailable Unavailable Maria Isabel Macias MD Unavailable Unavailable Maria Isabel Macias MD Unavailable Unavailable Maria Isabel Macias MD Unavailable Unavailable Maria Isabel Macias MD Unavailable Unavailable Maria Isabel Macias MD Unavailable Unavailable Maria Isabel Macias MD Unavailable Unavailable Maria Isabel Macias MD Unavailable Unavailable Maria Isabel Macias MD Unavailable Unavailable Maria Isabel Macias MD Unavailable Unavailable Maria Isabel Macias MD Unavailable Unavailable Maria Isabel Macias MD Unavailable Unavailable Maria Isabel Macias MD Unavailable Unavailable Maria Isabel Macias MD Unavailable Unavailable Maria Isabel Macias MD Unavailable Unavailable Juan Ramon Vieyra MD [...] Ramon aggarwal MD Unavailable Unavailable AzaliaJuan Ramon MD Unavailable Unavailable AzaliaJuan Ramon aggarwal MD Unavailable Unavailable AzaliaJuan Ramon MD Unavailable Unavailable AzaliaJuan Ramon MD Unavailable Unavailable AzaliaJuan Ramon MD Unavailable Unavailable AzaliaJuan Ramon MD Unavailable Unavailable Juan Ramon Vieyra MD Unavailable Unavailable AzaliaJuan Ramon MD Unavailable Unavailable AzaliaJuan Ramon MD Unavailable Unavailable AzaliaJuan Ramon MD Unavailable Unavailable AzaliaJuan Ramon MD Unavailable Unavailable AzaliaJuan Ramon MD Unavailable Unavailable AzaliaJuan Ramon MD Unavailable Unavailable AzaliaJuan Ramon MD Unavailable Unavailable AzaliaJuan Ramon MD Unavailable Unavailable AzaliaJuan Ramon MD Unavailable Unavailable AzaliaJuan Ramon garcia MD Unavailable Unavailable AzaliaJuan Ramon aggarwal MD [...] Unavailable Juan Ramon Vieyra MD Unavailable Unavailable Jaun Ramon Vieyra MD Unavailable Unavailable Juan Ramon [...] Unavailable Juan Ramon Vieyra MD Unavailable Unavailable Jeff Dudley MD Unavailable Unavailable Jeff Dudley MD Unavailable Unavailable Jeff Dudley MD Unavailable Unavailable Jeff Dudley MD Unavailable Unavailable Jeff Dudley MD Unavailable Unavailable Jeff Dudley MD Unavailable Unavailable Jeff Dudley MD Unavailable Unavailable Jeff Dudley MD Unavailable Unavailable Jeff Dudley MD Unavailable Unavailable Jeff Dudley MD Unavailable Unavailable Jeff Dudley MD Unavailable Unavailable Jeff Dudley MD Unavailable Unavailable Jeff Dudley MD Unavailable Unavailable Jeff Dudley MD Unavailable Unavailable Jeff Dudley MD Unavailable Unavailable Jeff Dudley MD Unavailable Unavailable Jeff Dudley MD Unavailable Unavailable Jeff Dudley MD Unavailable Unavailable Jeff Dudley MD Unavailable Unavailable Jeff Dudley MD Unavailable Unavailable Jeff Dudley MD Unavailable Unavailable Jeff Dudley MD Unavailable Unavailable Jeff Dudley MD Unavailable Unavailable Jeff Dudley MD Unavailable Unavailable Jeff Dudley MD Unavailable Unavailable Jeff Dudley MD Unavailable Unavailable Jeff Dudley MD Unavailable Unavailable Jeff Dudley MD Unavailable Unavailable Jeff Dudley MD Unavailable Unavailable Jeff Dudley MD Unavailable Unavailable Juan Mustafa MD Unavailable [...] Juan Mustafa MD Unavailable Unavailable [place] Unavailable Unavailable Juan Mustafa MD Unavailable Unavailable [...] Unavailable Unavailable Juan Mustafa MD Unavailable Unavailable Jaun Mustafa MD Unavailable Unavailable Juan Mustafa MD [...] Unavailable Unavailable Juan Mustafa MD Unavailable Unavailable RAMOS, M PATRICIA PA [...] Unavailable RAMOS, M PATRICIA PA Unavailable Unavailable RMAOS, M PATRICIA PA Unavailable Unavailable RAMOS, M [...] Unavailable RAMOS, M PATRICIA PA Unavailable Unavailable NON, PHYSICIAN STAFF Unavailable Unavailable Trenton II, Sushil PA Unavailable Unavailable Trenton II, Sushil PA Unavailable Unavailable Trenton II, Sushil PA Unavailable Unavailable [place]on II, Sushil PA Unavailable Unavailable [place]on II, Sushil PA Unavailable Unavailable [place]on II, Sushil PA Unavailable Unavailable Trenton II, Sushil PA Unavailable Unavailable Trenton II, Sushil PA Unavailable Unavailable [place]on II, Sushil PA Unavailable Unavailable Trenton II, Sushil PA Unavailable Unavailable Trenton II, Sushil PA Unavailable Unavailable [place]on II, Sushil PA Unavailable Unavailable [place]on II, Sushil PA Unavailable Unavailable [place]on II, Sushil PA Unavailable Unavailable [place]on II, Sushil PA Unavailable Unavailable Trenton II, Sushil PA Unavailable Unavailable [place]on II, Sushil PA Unavailable Unavailable Trenton II, Sushil PA Unavailable Unavailable Trenton II, Sushil PA Unavailable Unavailable Re-disclosure Warning The records that [...] is protected by Article 27-F of the [facility] Public Health law. If you continue you may have access to information: Regarding HIV / AIDS; Provided by facilities licensed or operated by the [facility] Office of Mental Health; or Provided by the [facility] Office for People With Developmental Disabilities. If such information is present, then the following [facility] mandated warning applies: This information has [...] law may result in a fine or senior care sentence or both. A general authorization for the release of medical or other information is NOT sufficient authorization for further disc losure. Family History Family Member Name Family Member Gender Family Member Status Date o f Status Description Data Source(s) Unknown Male Problem [facility] Unknown Unknown Problem [facility] ([facility], ) Unknown Male Problem [facility] ([facility] ) Unknown Male Problem [facility] ([facility] ) Unknown Female Problem [facility] ([facility]) Encounters Encounter Providers Location Date Indications Data Source(s ) Outpatient Attender: Jeff haddad 08/19/2021 01:30:00 PM EDT [facility] ([facility] ) Outpatient Attender: Yakelin Russ 01:15:00 PM EDT [facility] ([facility] ) Outpatient Attender: Jeff haddad 07/20/2021 09:10:00 AM EDT [facility] ([facility] ) Outpatient Attender: Yakelin Russ 09:15:00 AM EDT [facility] ([facility] ) Emergency Attender: Moises Rose MDConsultant: STAFF NON 06/14/2021 09:37:00 AM EDT - 06/14/2021 01:00:00 PM EDT [facility] Patient discharged. Outpatient Attender: Jeff haddad 06/08/2021 01:00:00 PM EDT [facility] ([facility] ) Outpatient Attender: Yakelin Russ 10:00:00 AM EDT [facility] ([facility] ) Outpatient Attender: Jeff Lombardo/Cameron/Hood/Reind l 04/28/2021 01:40:00 PM EDT [facility] ([facility] Outpatient Attender: Yakelin Russ 11:00:00 AM EDT [facility] ([facility] ) Outpatient Attender: Jacquelyn Mustafa MD Main office - [facility] 02/16/2021 10:15:00 AM EDT [facility] ([facility] Outpatient Attender: Yakelin Russ 01:15:00 PM EDT [facility] ([facility] ) Office Visit Attender: Jeff Lombardo/Cameron/Hood/Reind l 01/12/2021 08:15:00 AM EST [facility] ([facility] Outpatient Attender: Yakelin Russ 09:45:00 AM EST [facility] ([facility] ) Office Visit Attender: Sushil Shawang/Cameron/Hood/Rein dl 12/29/2020 10:30:00 AM EST [facility] ([facility] Outpatient Attender: Yakelin Russ 09:45:00 AM EST [facility] ([facility] ) Office Visit Attender: Jeff Lombardo/Cameron/Hood/Reind l 12/05/2020 09:00:00 AM EST [facility] ([facility] Office Visit Attender: Jeff Lombardo/Cameron/Hood/Reind l 11/26/2020 07:10:00 AM EST [facility] ([facility] Office Visit Attender: Jeff Lombardo/Cameron/Hood/Reind l 11/20/2020 08:20:00 AM EST [facility] ([facility] Outpatient Attender: Yakelin Russ 09:30:00 AM EST [facility] ([facility] ) Outpatient Attender: Tyrell Lombardo/Luis Enrique/Hood/Re indl 11/10/2020 12:45:00 PM EST [facility] ([facility] Outpatient Attender: Yakelin Russ 09:00:00 AM EST [facility] ([facility] ) Outpatient Attender: Jacquelyn Mustafa MD Main office - [facility] 11/03/2020 12:15:00 PM EST [facility] ([facility]) Outpatient Attender: Lorna Russ 12:40:00 PM EST [facility] ([facility] ) Outpatient Attender: PATRICIA Lombardo/Luis Enrique/Hood/Rein dl 09/11/2020 08:30:00 AM EST [facility] ([facility] Outpatient Attender: Yakelin Russ 10:30:00 AM EST [facility] ([facility] ) Outpatient [facility] 09/04/2020 11:48:00 AM EDT [facility] 08/18/2020 04:02:03 PM EDT [facility] 07/21/2020 04:01:00 PM EDT [facility] Outpatient Attender: Yakelin Russ 01:30:00 PM EDT [facility] ([facility] ) Office Visit Attender: Jacquelyn Mustafa MD Main office - [facility] 07/07/2020 09:00:00 AM EDT [facility] ([facility]) Outpatient WAT[facility] 07/03/2020 04:28:02 PM EDT [facility] 07/03/2020 03:48:00 PM EDT [facility] 07/03/2020 02:34:00 PM EDT [facility] 07/03/2020 02:33:01 PM EDT [facility] Outpatient Attender: Yakelin Russ 10:45:00 AM EDT MED[facility] ([facility] ) Immunizations Vaccine Date Status Description Data Source(s) COVID-19 VACCINE Pfizer 12/22/2020 12:00:00 AM EST completed [facility] Vaccine Series Complete: YESThis Data wa s Submitted to [facility] Via [employer]. COVID-19 VACCINE Pfizer 12/01/2020 12:00:00 AM EST completed [facility] Vaccine Series Complete: NOThis Data was Submitted to [facility] Via [employer]. Influenza, injectable, MDCK, preservative free, stephanie valent 07/21/2020 01:30:00 PM EDT completed [facility]) Medications Medication Brand Name Start Date Product Form Dose Route Admi nistrative Instructions Pharmacy Instructions Status Indications Reaction Description Data Source(s) Omeprazole 40 MG Delayed Release Oral Capsule Omeprazole 08/19/2021 12:00:00 AM EDT ORAL active MEDENT ([facility] ) Bacitracin 0.5 UNT/MG / Polymyxin B 10 UNT/MG Topical Ointment [Polysporin] Polysporin 08/10/2021 12:00:00 AM EDT active MED[facility] ([facility]) gabapentin 400 MG Oral Capsule Gabapentin 06/29/2021 12:00:00 AM EDT ORAL active [facility] ([facility]) Ipratropium [place] Ipratropium [place] 06/08/2021 12:00:00 AM EDT active MED[facility] ([facility]) Docusate Sodium 100 MG Oral Capsule Docusate Sodium 04/20/2021 1 2:00:00 AM EDT ORAL active [facility] ( [facility]) Petrolatum 1 MG/MG Topical Ointment [Vaseline] Vaseline 01/30/2021 12:00:00 AM EDT active MED[facility] ([facility]) Bacitracin 0.5 UNT/MG / Polymyxin B 10 UNT/MG Topical Ointment [Polysporin] Polysporin 01/12/2021 12:00:00 AM EST active MED[facility] ([facility]) Covid-19 vaccine, Unspecified 12/22/2020 12:00:00 AM EST completed [facility] ([facility]) Medication administered onsite gabapentin 400 MG Oral Capsule Gabapentin 12/09/2020 12:00:00 AM EST ORAL active [facility] ([facility]) Losartan Potassium 50 MG Oral Tablet Losartan Potassium 12/2020 12:00:00 AM EST ORAL active [facility] 8 HR Acetaminophen 650 MG Extended Release Oral Tablet [Tylenol] Tylenol 8 Hour Arthritis Pain 12/09/2020 12:00:00 AM EST active [facility] ([facility]) Sinus Rinse Bottle Kit 12/05/2020 12:00:00 AM EST active MED[facility] ([facility], ) Bacitracin 0.5 UNT/MG / Polymyxin B 10 UNT/MG Topical Ointment [Polysporin] Polysporin 12/05/2020 12:00:00 AM EST active [facility] ([facility], ) Covid-19 vaccine, Unspecified 12/01/2020 12:00:00 AM EST completed [facility] ([facility]) Medication administered onsite Sodium Chloride 0.111 MEQ/ML Nasal Solution Saline Mist Spra y 11/11/2020 12:00:00 AM EST active M EDENT ([facility], ) Amoxicillin 875 MG / Clavulanate 125 MG Oral Tablet Am oxicillin/Clavulanate Potassium 11/05/2020 12:00:00 AM EST completed [facility] ([facility]) Aspirin 81 MG Delayed Release Oral Tablet Aspirin 81 2019 12:00:00 AM EST active [facility] ( [facility]) Super B Complex/Vitamin C 09/24/2020 12:00:00 AM EST ORA L completed [facility] ([facility] ) Cholecalciferol 2000 UNT Oral Tablet Vitamin D 09/15/2020 12:00:00 A M EST ORAL active [facility] ([facility]) clopidogrel 75 MG Oral Tablet Clopidogrel Bisulfate 07/25/2020 1 2:00:00 AM EDT active MED[facility] ( [facility], ) Administration Of Flu Vaccine 07/21/2020 12:00:00 AM EDT completed [facility] ([facility]) Medication administered onsite Insurance Providers Payer name Policy type / Coverage type Policy ID Covered republican ID Covered republican's relationship to rossi Policy Rossi Plan Information [facility] PART A [id number] SP [id number] MEDICARE [id number] SP [id number] D [facility] [id number] SP [id number] Medicare Natl Govt Servic Medicare Primary [id number] 2.840.1.126706.3.227.99.4595.07372.0 Self [id number] Medicare Natl Govt Servic Medicare Primary [id number] 2.0.1.070919.3.227.99.4595.91621.0 Self [id number] Medicare Natl Govt Servic Medicare Primary [id number] 2.0.1.621330.3.227.99.4595.25263.0 Self [id number] Medicare Natl Govt Servic Medicare Primary [id number] 2.840.1.089559.3.227.99.4595.57040.0 Self [id number] Medicare Natl Govt Servic Medicare Primary [id number] 2.840.1.452181.3.227.99.4595.01613.0 Self [id number] Medicare Natl Govt Servic Medicare Primary [id number] 2.840.1.519694.3.227.99.4595.13072.0 Self [id number] Medicare Natl Govt Servic Medicare Primary [id number] Self Medicare Natl Govt Servic Medicare Primary [id number] 2.840.1.493170.3.227.99.4595.28649.0 Self [id number] D Medicare Natl Govt Servic Medicare Primary [id number] 2.840.1.601654.3.227.99.4595.63249.0 Self [id number] Medicare Natl Govt Servic Medicare Primary [id number] 2.16.840.1.220231.3.227.99.4595.78160.0 Self [id number] Medicare Natl Govt Servic Medicare Primary [id number] 2.16.840.1.421167.3.227.99.4595.40325.0 Self [id number] Medicare Natl Govt Servic Medicare Primary [id number] 2.16.840.1.021957.3.227.99.4595.38713.0 Self [id number] Medicare Natl Govt Servic Medicare Primary [id number] 2.16.840.1.422160.3.227.99.4595.10456.0 Self [id number] Medicare Natl Govt Servic Medicare Primary [id number] Self [id number] Medicare Natl Govt Servic Medicare Primary [id number] 2.16840.1.604766.3.227.99.4595.75566.0 Self [id number] Medicare Natl Govt Servic Medicare Primary [id number] 2.16.840.1.395016.3.227.99.4595.85190.0 Self [id number] Medicare Natl Govt Servic Medicare Primary [id number] 2.16840.1.023967.3.227.99.4595.59881.0 Self [id number] Medicare Natl Govt Servic Medicare Primary [id number] 2.16840.1.918564.3.227.99.4595.90534.0 Self [id number] MEDICARE [id number] SP [id number] D Medicare Natl Govt Servic Medicare Primary [id number] Self [id number] Medicare Natl Govt Servic Medicare Primary [id number] 2.16840.1.446692.3.227.99.4595.86678.0 Self [id number] Medicare Natl Govt Servic Medicare Primary [id number] 2.16840.1.252363.3.227.99.4595.59184.0 Self [id number] Medicare Natl Govt Servic Medicare Primary [id number] 2.16840.1.913835.3.227.99.4595.47907.0 Self [id number] Medicare Natl Govt Servic Medicare Primary [id number] 2.16840.1.260533.3.227.99.4595.40195.0 Self [id number] Medicare C [id number] SELF [id number] Medicare Natl Govt Servic Medicare Primary [id number] 2.840.1.608772.3.227.99.4595.40393.0 Self [id number] Medicare Natl Govt Servic Medicare Primary [id number] 2.840.1.367731.3.227.99.4595.17227.0 Self [id number] Medicare Natl Govt Servic Medicare Primary [id number] Self [id number] Medicare Natl Govt Servic Medicare Primary [id number] 2.840.1.096628.3.227.99.4595.71218.0 Self [id number] Medicare Natl Govt Servic Medicare Primary [id number] 2.16840.1.062794.3.227.99.4595.92837.0 Self [id number] MEDICARE [id number] SP [id number] Medicare Natl Govt Servic Medicare Primary [id number] 2.16.840.1.140525.3.227.99.4595.36244.0 Self [id number] Medicare Natl Govt Serv Medicare Primary [id number] 2.16.840.1.795393.3.227.99.4595.71933.0 Self [id number] Medicare [facility] Medicare Primary [id number] 2.16.840.1.153103.3.227.99.4595.28248.0 Self [id number] [facility] [id number] 2.16.840.1.866656.3.227.99.4595.05251.0 Self [id number] [employer] (pr) Medigap Part B [id number] 2.16.840.1.287975.3.227.99.991.03152.0 Self [id number] [employer] (pr) Medigap Part B [id number] 2.16.840.1.205367.3.227.99.991.47417.0 Self [id number] [employer] (pr) Medigap Part B [id number] 2.16.840.1.745242.3.227.99.991.81493.0 Self [id number] [employer] (pr) Medigap Part B [id number] Self [employer] (pr) Medigap Part B [id number] 2.16.840.1.342544.3.227.99.991.64156.0 Self [id number] [employer] (pr) Medigap Part B [id number] 2.16.840.1.042068.3.227.99.991.69115.0 Self [id number] [employer] Medigap Part B [id number] 2.16.840.1.587618.3.227. 99.4595.08755.0 Self [id number] [facility] Medigap Part B [id number] Self [id number] [employer] Medig[employer] Part B [id number] Self [id number] [employer] Medigap Part B [id number] 2..1.641202.3.227.99.4595.38615.0 Self [id number] [employer] Medig[employer] Part B [id number] 2..1.138760.3.227. 99.4595.21338.0 Self [id number] [employer] [place] [employer] Medigap Part B [id number] Self [id number] [employer] Med[employer] Part B [id number] Self [id number] [employer] [place] [employer] Medigap Part B [id number] Self [id number] [employer] Part B [id number] Self [id number] [employer] [place] [employer] Medigap Part B [id number] 2..536136.3.227.99.4595.84069.0 Self [id number] [employer] Medig[employer] Part B [id number] .1.799348.3.227. 99.4595.98834.0 Self [id number] [employer] [place] [employer] Medigap Part B [id number] .1.147229.3.227.99.4595.29525.0 Self [id number] [employer] Part B [id number] 2..1.938045.3.227. 99.4595.22464.0 Self [id number] [employer] [place] [employer] Medigap Part B [id number] 2.1.312461.3.227.99.4595.27322.0 Self [id number] [employer] Medig[employer] Part B [id number] 2.840.1.917353.3.227. 99.4595.95771.0 Self [id number] [employer] Med[employer] Part B [id number] 2.840.1.942608.3.227.99.4595.87314.0 Self [id number] [employer] Part B [id number] 2.840.1.169579.3.227. 99.4595.21510.0 Self [id number] [employer] Part B [id number] 2.840.1.716261.3.227.99.4595.41820.0 Self [id number] [employer] Part B [id number] 2.840.1.355241.3.227. 99.4595.23557.0 Self [id number] [employer] Part B [id number] .0.1.918292.3.227.99.4595.28331.0 Self [id number] [employer] Part B [id number] 2.840.1.384753.3.227. 99.4595.99249.0 Self [id number] [employer] Part B [id number] 2.840.1.164934.3.227.99.4595.06284.0 Self [id number] [employer] Part B [id number] 2.840.1.610582.3.227. 99.4595.64324.0 Self [id number] [employer] Part B [id number] 2.840.1.258288.3.227.99.4595.95789.0 Self [id number] [employer] Part B [id number] 2.840.1.939586.3.227. 99.4595.69382.0 Self [id number] [employer] Part B [id number] 2.840.1.427596.3.227.99.4595.18760.0 Self [id number] [employer] Part B [id number] 2.840.1.455503.3.227. 99.4595.34903.0 Self [id number] [employer] Part B [id number] 2.840.1.819220.3.227.99.4595.72842.0 Self [id number] [employer] Part B [id number] 2.840.1.752862.3.227. 99.4595.73506.0 Self [id number] [employer] Part B [id number] 2.840.1.087805.3.227.99.4595.75896.0 Self [id number] [employer] Part B [id number] 2.840.1.517274.3.227. 99.4595.03862.0 Self [id number] [employer] [place] [employer] Medig[employer] Part B [id number] 2.0.1.219995.3.227.99.4595.11828.0 Self [id number] [employer] Part B [id number] 2.840.1.547046.3.227. 99.4595.21514.0 Self [id number] [employer] Part B [id number] 2.840.1.722799.3.227.99.4595.88852.0 Self [id number] [employer] Part B [id number] 2.840.1.710171.3.227. 99.4595.02683.0 Self [id number] [employer] Part B [id number] 2.840.1.675965.3.227.99.4595.29289.0 Self [id number] [employer] Part B [id number] 2.840.1.134323.3.227. 99.4595.49895.0 Self [id number] [employer] Part B [id number] 2.840.1.013862.3.227.99.4595.47557.0 Self [id number] [employer] Part B [id number] 2.840.1.809789.3.227. 99.4595.15704.0 Self [id number] [employer] Part B [id number] 2.840.1.165620.3.227.99.4595.62588.0 Self [id number] [employer] Medig[employer] Part B [id number] 2.840.1.485923.3.227. 99.4595.36718.0 Self [id number] [employer] Part B [id number] 2.840.1.119842.3.227.99.4595.57317.0 Self [id number] [employer] Medig[employer] Part B [id number] 2.840.1.940140.3.227. 99.4595.34571.0 Self [id number] [employer] [place] Medigap Part B [id number] 2.840.1.064747.3.227.99.4595.47665.0 Self [id number] [employer] Medigap Part B [id number] 2.840.1.057614.3.227. 99.4595.20524.0 Self [id number] [employer] [place] Medig[employer] Part B [id number] 2.840.1.678415.3.227.99.4595.69294.0 Self [id number] [employer] Medigap Part B [id number] 2.840.1.149638.3.227. 99.4595.41662.0 Self [id number] [employer] [place] Medig[employer] Part B [id number] 2.840.1.163376.3.227.99.4595.10437.0 Self [id number] [employer] Medigap Part B [id number] 2.840.1.534845.3.227. 99.4595.23608.0 Self [id number] [employer] [place] Medig[employer] Part B [id number] 2.840.1.793369.3.227.99.4595.64415.0 Self [id number] [employer] Medigap Part B [id number] .0.1.965241.3.227. 99.4595.66458.0 Self [id number] FIRST [employer] [id number] SP [id number] First [place] Medigap Part B [id number] .0.1.034275.3.227.99.4595.19936.0 Self [id number] [employer] [place] Medigap Part B [id number] .0.1.970389.3.227.99.4595.16087.0 Self [id number] [employer] Medigap Part B [id number] ..1.588288.3.227. 99.4595.00602.0 Self [id number] [employer] [place] Medigap Part B [id number] .1.946515.3.227.99.4595.45190.0 Self [id number] [employer] Medigap Part B [id number] ..1.131532.3.227. 99.4595.02107.0 Self [id number] [employer] [place] Medigap Part B [id number] ..1.819392.3.227.99.4595.39393.0 Self [id number] [employer] Medigap Part B [id number] .1.245724.3.227. 99.4595.40121.0 Self [id number] [employer] [place] Medigap Part B [id number] .0.1.043978.3.227.99.4595.07853.0 Self [id number] [employer] Medigap Part B [id number] 12.23.830.1.892365.3.227. 99.4595.77645.0 Self [id number] [employer] [place] Commercial [id number] 12.23.830.1.104519.3.227.99.8646.8206.0 Self [id number] [employer] [place] Medigap Part B [id number] .1.169594.3.227.99.4595.46442.0 Self [id number] [employer] Commercial [id number] 2.16840.1.869382.3.227.99.8646.8206.0 Self 6 [id number] [employer] [place] Medigap Part B [id number] Self [id number] [employer] [place](pr) Medigap Part B [id number] 2.16840.1.981039.3.227.99.991.45206.0 Self 6 [id number] [employer] [place](pr) Medigap Part B [id number] 2.16840.1.240005.3.227.99.991.66337.0 Self 6 [id number] [employer] [place](pr) Medigap Part B [id number] 2.16840.1.807815.3.227.99.991.81380.0 Self 6 [id number] [employer] [place](pr) Medigap Part B [id number] 2.16840.1.156176.3.227.99.991.85844.0 Self 6 [id number] [employer] [place](pr) Medigap Part B [id number] Self [employer] [place](pr) Medigap Part B [id number] 2.16840.1.866462.3.227.99.991.71836.0 Self 6 [id number] [employer] [place](pr) Medigap Part B [id number] 2.16840.1.461082.3.227.99.991.59817.0 Self 6 [id number] [employer] [place](pr) Medigap Part B [id number] 2.16840.1.406832.3.227.99.991.97217.0 Self 6 [id number] [employer] [place](pr) Medigap Part B [id number] 2.16840.1.015162.3.227.99.991.94805.0 Self 6 [id number] Medicare [place] Medicare Primary [id number] Self [employer] [place](pr) Medigap Part B [id number] 2.16840.1.808836.3.227.99.991.21420.0 Self 6 [id number] [employer] [place](pr) Medigap Part B [id number] Self [employer] [place](pr) Medigap Part B [id number] 2.16840.1.939990.3.227.99.991.68526.0 Self [id number] Medicare [place] Medicare Primary [id number] 2.16.840.1.738637.3.227.99.991.66752.0 Self 3 [id number] [employer] Of [place] Medigap Part B [id number] 2.16840.1.630786.3.227.99.991.47743.0 Self [id number] [place] Med[place] [id number] 2.16840.1.619848.3.227.99.991. 84472.0 Self [id number] [place] Med[place] [id number] 2.840.1.694025.3.227.99.991. 03346.0 Self [id number] Medicare [place] Medicare Primary [id number] 2.840.1.137791.3.227.99.991.65687.0 Self 3 [id number] [employer] (pr) Medigap Part B [id number] 2.16840.1.918859.3.227.99.991.62444.0 Self [id number] Medicaid S [id number] S [id number] [employer] (pr) Medigap Part B [id number] 2.16840.1.740150.3.227.99.991.46218.0 Self [id number] [place] Medigap Part [place] [id number] 2.16840.1.896649.3.227.99.991. 58228.0 Self [id number] [employer] (pr) Medigap Part B [id number] 2.16840.1.266345.3.227.99.991.51926.0 Self 6 [id number] Medicare [place] Medicare Primary [id number] 2.16840.1.038774.3.227.99.991.70925.0 Self 3 [id number] Medicaid [place] Medigap Part B [id number] 2.16.840.1.509576.3.227.99.991. 49012.0 Self [id number] Medicare [place] Medicare Primary [id number] 2.16.840.1.444306.3.227.99.991.78689.0 Self 3 [id number] Medicaid [place] Medigap Part B [id number] 2.16.840.1.942570.3.227.99.991. 82106.0 Self [id number] [employer] (pr) Medigap Part B [id number] 2.16.0.1.271965.3.227.99.991.43375.0 Self [id number] Medicare [place] Medicare Primary [id number] 2.16.840.1.614181.3.227.99.991.12756.0 Self 3 [id number] [employer] [place] [id number] SP [id number] [facility] [id number] SP [id number] [place] [id number] SP [id number] [place] [id number] SP [id number] [place] [id number] SP [id number] Medicare C [id number] SELF [id number] Medicaid [facility] S D [id number] SELF [id number] DME Jurisdiction A [facility] C [id number] SELF [id number] Medicaid [facility] Healthcare S D [id number] SELF [id number] Medicare P [id number] S [id number] Medicare P [id number] S [id number] [facility] PART A [id number] SP [id number] Medicaid Medigap Part B [id number] 2.16.840.1.178473.3.227.99.4595.116 04.0 Self [id number] Medicaid Medicaid [id number] 2.16.840.1.592110.3.227.99.936.71128.0 S elf [id number] Medicare Medicare Primary [id number] 2.16.840.1.736853.3.227. 99.936.96992.0 Self [id number] SELF PAY UNAVAILABLE UNAVAILA BLE Medicaid Medigap Part B [id number] 2.16.840.1.632433.3.227.99.4595.116 04.0 Self [id number] Medicare Dme Supplies Medigap Part B 2.16.840.1.543830 .3.227.99.991.16472.0 Self Medicaid Medigap Part B [id number] Self [id number] Medicaid Medigap Part B [id number] 2.16.840.1.761373.3.227.99.4595.116 04.0 Self [id number] Medicare P [id number] S [id number] Medicare P [id number] S [id number] D Medicaid Medigap Part B [id number] 2.16.840.1.685712.3.227.99.4595.116 04.0 Self [id number] Medicare Dme Supplies Medigap Part B [id number] 2.16.840.1.967305.3.227.99.991.38494.0 Self 3 [id number] Medicaid Medigap Part B [id number] 2.16.840.1.765939.3.227.99.4595.116 04.0 Self [id number] Medicaid Medigap Part B [id number] 2.16.840.1.324356.3.227.99.4595.116 04.0 Self [id number] MEDICAID [id number] SP [id number] Medicaid Medigap Part B [id number] 2.16.840.1.532103.3.227.99.4595.116 04.0 Self [id number] Medicare Dme Supplies Medigap Part B [id number] 2.16.840.1.829148.3.227.99.991.97739.0 Self 3 [id number] Medicare Dme Medigap Part B [id number] 2.16.840.1.466498.3.227.99 .936.85302.0 Self [id number] Medicaid Medicaid [id number] 2.16.840.1.657286.3.227.99.936.86278.0 S elf [id number] [employer] Commercial [id number] 2.16.840.1.916608.3.227. 99.936.99969.0 Self [id number] Medicare Medicare Primary [id number] 2.16.840.1.233249.3.227. 99.936.07598.0 Self [id number] Medicaid Medigap Part B [id number] 2.16.840.1.690327.3.227.99.4595.116 04.0 Self [id number] Medicaid Medigap Part B [id number] 2.16.840.1.814262.3.227.99.4595.116 04.0 Self [id number] Medicaid Medicaid [id number] 2.16.840.1.893981.3.227.99.936.31781.0 S elf [id number] [employer] [id number] 2.16.840.1.998608.3.227. 99.936.12949.0 Self [id number] Medicare Medicare Primary [id number] 2.16.840.1.735403.3.227. 99.936.31801.0 Self [id number] Medicare Part B [facility] Other 0 [id number] S elf 0 Medicaid Medigap Part B [id number] 2.16.840.1.073725.3.227.99.4595.116 04.0 Self [id number] Medicaid Medigap Part B [id number] 2.16.840.1.029528.3.227.99.4595.116 04.0 Self [id number] Medicaid Medigap Part B [id number] 2.16.840.1.118177.3.227.99.4595.116 04.0 Self [id number] Medicaid Medigap Part B [id number] 2.16.840.1.305278.3.227.99.4595.116 04.0 Self [id number] Medicare Dme Supplies Medigap Part B [id number] 2.16.840.1.881302.3.227.99.991.65763.0 Self 3 [id number] FIRST [employer] O [id number] S [id number] MEDICARE C [id number] S [id number] D Medicaid Medigap Part B [id number] 2.16.840.1.873742.3.227.99.4595.116 04.0 Self [id number] Medicaid Medigap Part B [id number] 2.16840.1.714178.3.227.99.4595.116 04.0 Self [id number] Medicaid Medigap Part B [id number] 2.16.840.1.187912.3.227.99.4595.116 04.0 Self [id number] Medicaid Medicaid [id number] 2.16.840.1.894281.3.227.99.936.73435.0 S elf [id number] [employer] Commercial [id number] 2.16840.1.112797.3.227. 99.936.74553.0 Self [id number] Medicare Medicare Primary [id number] 2.16.840.1.797308.3.227. 99.936.50087.0 Self [id number] Medicaid Medigap Part B [id number] 2.16.840.1.985622.3.227.99.4595.116 04.0 Self [id number] Medicaid Medicaid [id number] 2.16.840.1.964241.3.227.99.936.15522.0 S elf [id number] [employer] Commercial [id number] 2.16.840.1.692248.3.227. 99.936.12293.0 Self [id number] Medicare Medicare Primary [id number] 2.16.840.1.870340.3.227. 99.936.84691.0 Self [id number] Medicaid Medigap Part B [id number] 2.16.840.1.449762.3.227.99.4595.116 04.0 Self [id number] [employer] [place] [id number] SP [id number] Medicaid Medigap Part B [id number] 2.16.840.1.571386.3.227.99.4595.116 04.0 Self [id number] [employer] [id number] SP [id number] Medicare [place]/[facility] Medicare Primary [id number] 2.16.840.1.939733.3.227.99.8646.8206.0 Self 3 [id number] Medicaid Medigap Part B [id number] 2.16.840.1.874248.3.227.99.4595.116 04.0 Self [id number] [employer] [place] Medigap Part B [id number] Self Medicaid Medigap Part B [id number] 2.16.840.1.282383.3.227.99.4595.116 04.0 Self [id number] Medicaid Medigap Part B [id number] 2.16.840.1.714612.3.227.99.4595.116 04.0 Self [id number] Medicare [facility] Medigap Part B [id number] 2.16.840.1.201929.3.227.99.991.54653.0 Self 3 [id number] MEDICAID M [id number] S [id number] Medicaid Medigap Part B [id number] 2.16.840.1.552860.3.227.99.4595.116 04.0 Self [id number] Medicare [facility] Medicare Primary [id number] Self Medicaid Medigap Part B [id number] Self [id number] Medicaid Medigap Part B [id number] Self [id number] Medicare Dme Supplies Medigap Part B [id number] 2.16840.1.813810.3.227.99.991.48587.0 Self 3 [id number] Medicare [place] Medicare Primary [id number] 2.16.840.1.969741.3.227.99.8646.8206.0 Self 3 [id number] MEDICARE [id number] SP [id number] D MEDICARE PART A -O/[id number] 18 [id number] Medicaid Medigap Part B [id number] 2.16840.1.865122.3.227.99.4595.116 04.0 Self [id number] MEDICARE C [id number] S [id number] Medicare P UNAVAILABLE S UNAVAILA BLE Medicaid S [id number] S [id number] [employer] INS [place] O [id number] S [id number] Medicaid Medigap Part B [id number] 2.0.1.887607.3.227.99.4595.116 04.0 Self [id number] Problems, Conditions, and Diagnoses Code Display Name Description Problem Type Effective Dates Data Source(s) L42701 [address] in shelter as the place of occurrence of the external cause Unspecified place in shelter as the place of occurrence of the external cause Diagnosis 06/14/2021 09:37:00 AM EDT [facility] [id number] Fall on same level from slip ping, tripping and stumbling with subsequent striking against other object, initial encounter Fall on same level from slipping, tripping and stumbling with subsequent striking against other object, initial encounter Diagnosis [facility] 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 Diagnosis 06/14/2021 09:37:00 AM [facility] Z8673 Personal history of transien t ischemic attack (TIA), 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 (TIA), and cerebral infarction without residual deficits Diagnosis 06/14/2021 09:37:00 AM [facility] Z7902 correction (current) use of antithromboti cs/antiplatelets correction (current) use of antithrombotics/antiplatelets Diagnosis 021 09:37:00 AM [facility] E039 Hypothyroidism, unspecified Hypothyroidism, unspecifie d Diagnosis 06/14/2021 09:37:00 AM [facility] I10 Essential (primary) hypertension Essential (primary) h ypertension Diagnosis 06/14/2021 09:37:00 AM [facility] [id number] Contusion of scalp, initial encounter Co ntusion of scalp, initial encounter Diagnosis 06/14/2021 09:37:00 AM [facility] [id number] Unspecified injury of head, initial enco unter Unspecified injury of head, initial encounter Diagnosis 06/14/2021 09:37:00 AM [facility] [id number] Disease caused by 2019-nCoV Disease caused by 2019-nCo V Problem 11/04/2020 12:00:00 AM EST MARKUS ([facility]) Surgeries/Procedures Procedure Description Date Indications Data Source(s) OFFICE OUTPATIENT VISIT 25 MINUTES 08/19/2021 12:00:00 AM EDBenjamin MEDFRANKLIN ([facility], ) OFFICE OUTPATIENT VISIT 25 MINUTES 07/28/2021 12:00:00 AM EDT MARKUS ([facility]) OFFICE OUTPATIENT VISIT 15 MINUTES 07/20/2021 12:00:00 AM EDT [facility] ([facility], ) OFFICE OUTPATIENT VISIT 25 MINUTES 06/29/2021 12:00:00 AM EDT [facility] ([facility]) OFFICE OUTPATIENT VISIT 25 MINUTES 06/08/2021 12:00:00 AM EDT [facility] ([facility], ) Chronic Care MGMT 20 Mins Clinical Staff Time Per Calendar M [facility] 06/03/2021 12:00:00 AM EDBenjamin APARICIO ([facility] ) OFFICE OUTPATIENT VISIT 25 MINUTES 05/25/2021 12:00:00 AM EDT [facility] ([facility]) Bone Mineral Density Test 05/21/2021 12:00:00 AM EDT [facility] ([facility]) Chronic Care MGMT 20 Mins Clinical Staff Time Per Calendar M [facility] 05/06/2021 12:00:00 AM EDT [facility] ([facility] ) OFFICE OUTPATIENT VISIT 15 MINUTES 04/28/2021 12:00:00 AM EDT [facility] ([facility], ) OFFICE OUTPATIENT VISIT 25 MINUTES 04/20/2021 12:00:00 AM EDT [facility] ([facility]) Chronic Care MGMT 20 Mins Clinical Staff Time Per Calendar M [facility] 04/01/2021 12:00:00 AM EDT [facility] ([facility] ) Chronic Care Management Services Ea Addl 20 Min 2020 12:00:00 AM EDT [facility] ([facility]) Chronic Care MGMT 20 Mins Clinical Staff Time Per Calendar M [facility] 02/23/2021 12:00:00 AM EDT [facility] ([facility] ) OFFICE OUTPATIENT VISIT 25 MINUTES 01/22/2021 12:00:00 AM EDT [facility] ([facility]) OFFICE OUTPATIENT VISIT 25 MINUTES 01/01/2021 12:00:00 AM EST [facility] ([facility]) OFFICE OUTPATIENT VISIT 25 MINUTES 12/09/2020 12:00:00 AM EST [facility] ([facility]) Chronic Care Management Services Ea Addl 20 Min 2020 12:00:00 AM EST [facility] ([facility]) Chronic Care MGMT 20 Mins Clinical Staff Time Per Calendar M [facility] 11/20/2020 12:00:00 AM EST [facility] ([facility] ) Rea Cre SRV W/I 7 Days Of DC, Comm W/I 2 Dys Med Rec 11/19/2020 12:00:00 AM EST [facility] ([facility] ) Rea Cre SRV W/I 7 Days Of DC, Comm W/I 2 Dys Med Rec 11/10/2020 12:00:00 AM EST [facility] ([facility] ) OFFICE OUTPATIENT VISIT 15 MINUTES 11/10/2020 12:00:00 AM EST [facility] ([facility], ) ELECTROENCEPHALOGRAM W/REC AWAKE&ASLEEP 08/18/2020 12: 00:00 AM EDT [facility] ([facility], ) ELECTROENCEPHALOGRAM W/REC AWAKE&ASLEEP 08/18/2020 12: 00:00 AM EDT [facility] ([facility], ) Needle electromyography, each extremity, with related paraspinal areas, when performed, done with nerve conduction, amplitude and latency/velocity study; complete, five or more muscles studied, innervated by three or more nerves or four or more spinal levels (list separately in addition to the code for primary procedure). 07/23/2020 12:00:00 AM EDT MEDEN T ([facility], ) 55215 Nerve conduction studies 5-6 studies NEW 201207/23/2020 12:00:00 AM EDT [facility] ([facility] ) Magnetic Resonance Angiogtaphy Head W/O Contrast Material(S) 07/18/2020 12:00:00 AM EDT [facility] ([facility] ) Magnetic Resonance Angiogtaphy Head W/O Contrast Material(S) 07/18/2020 12:00:00 AM EDT [facility] ([facility] ) Magnetic Resonance Angiography Neck W/O Contrast Materials 07/18/2020 12:00:00 AM EDT [facility] ([facility] ) Magnetic Resonance Angiography Neck W/O Contrast Materials 07/18/2020 12:00:00 AM EDT [facility] ([facility] ) MRI BRAIN BRAIN STEM W/O CONTRAST MATERIAL 07/18/2020 12:00:00 AM EDT [facility] ([facility], ) MRI BRAIN BRAIN STEM W/O CONTRAST MATERIAL 07/18/2020 12:00:00 AM EDT [facility] ([facility], ) MRI SPINAL CANAL LUMBAR W/O CONTRAST MATERIAL 07/18/20 20 12:00:00 AM EDT [facility] ([facility], ) MRI SPINAL CANAL LUMBAR W/O CONTRAST MATERIAL 07/18/20 20 12:00:00 AM EDT [facility] ([facility], ) TSTG ANS FUNCJ CARDIOVAGAL INNERVAJ PARASYMP 0 12:00:00 AM EDT [facility] ([facility], ) TSTG ANS FUNCJ CARDIOVAGAL INNERVAJ PARASYMP 0 12:00:00 AM EDT [facility] ([facility], ) TESTING AUTONOMIC NERVOUS SYSTEM FUNCTION 07/09/2020 1 2:00:00 AM EDT [facility] ([facility]) TESTING AUTONOMIC NERVOUS SYSTEM FUNCTION 07/09/2020 1 2:00:00 AM EDT [facility] ([facility], ) NON-INVASIVE PHYSIOLOGIC STUDY EXTREMITY 3 LEVLS 07/09 12:00:00 AM EDT [facility] ([facility]) Results ID Date Data Source [id number] 07/28/2021 02:07:00 PM EDT [facility] ([facility]) Name Value Range Interpretation Code Description Data Maggi rce(s) Supporting Document(s) Glucose [Mass/volume] in Serum or Plasma 115 mg/dL 74-99 [facility] ([facility]) 100-125 mg/dL PRE-DIABETES/FASTING >126 mg/dL DIABETES/FASTING Urea nitrogen [Mass/volume] in Serum or Plasma 20 mg/dL 7-18 [facility] ([facility]) Sodium [Moles/volume] in Serum or Plasma 137 meq/L 136-145 [facility] ([facility]) Creatinine 1.0 mg/dL 0.6-1.3 [facility] ([facility] Potassium [Moles/volume] in Serum or Plasma 4.5 meq/L 3.5-5.1 [facility] ([facility]) Carbon dioxide, total [Moles/volume] in Serum or Plasma 30 meq/L 21 -32 [facility] ([facility]) Chloride [Moles/volume] in Serum or Plasma 102 meq/L 98-107 [facility] ([facility]) Glomerular filtration rate/1.73 sq M pre dicted among blacks [Volume Rate/Area] in Serum or Plasma by Creatinine-based formula (MDRD) Laboratory test result [facility] <content>CHRONIC KIDNEY DISEASE STAGING PER NKF</content>
<content></content>
<content>STAGE I & II GFR >= 60 NORMAL TO MILDLY DECREASED</content>
<content>STAGE III GFR 30-59 MODERATELY DECREASED</content>
<content>STAGE IV GFR 15-29 SEVERELY DECREASED</content>
<content>STAGE V GFR <15 VERY LITTLE GFR LEFT</content>
<content>ESRD GFR <15 ON INDUSTRIAL TRAINING SPECIALIST</content>
<content></content> Calcium [Mass/volume] in Serum or Plasma 9.6 mg/dL 8.5-10.1 [facility] ([facility]) Glomerular filtration rate/1.73 sq M pre dicted among non-blacks [Volume Rate/Area] in Serum or Plasma by Creatinine-based formula (MDRD) 53 mL/min [facility] ID Date Data Source [id number] 07/28/2021 02:07:00 PM EDT [facility] ([facility]) Name Value Range Interpretation Code Description Data Maggi rce(s) Supporting Document(s) Leukocytes [#/volume] in Blood by Automated count 5.0 x10*3/UL 4.1-10 .9 [facility] ([facility]) Erythrocytes [#/volume] in Blood by Automated count 3.88 x10*6/UL 4.2 0-6.30 [facility] ([facility]) NOTE: RESULT VERIFIED. Hemoglobin [Mass/volume] in Blood 12.7 g/dL 12.0-18.0 [facility] MCV 94.3 fL 80.0-97.0 [facility] [facility] Hematocrit [Volume Fraction] of Blood by Automated count 36.6 % 3 7.0-51.0 [facility] ([facility]) MCH 32.7 pg 26.0-32.0 [facility] ([facility]) Erythrocyte distribution width [Ratio] by Automated count 13.7 % 11.6-13.7 [facility] ([facility]) MCHC 34.7 g/dL 31.0-38.0 [facility] [facility]) Platelets [#/volume] in Blood by Automated count 303 x10*3/UL 140-440 [facility] ([facility]) MPV 7.5 FL 7.8-11.0 [facility] Lymph % 36.7 % 10.0-58.5 [facility] [facility] Mid % 7.4 % 1.7-9.3 [facility] [facility] Neut % 55.9 % 37.0-92.0 [facility] [facility] Mid # 0.4 x10*3/UL 0.1-0.6 [facility] ([facility]) Lymph # 1.8 x10*3/UL 0.6-4.1 [facility] ([facility]) Neut # 2.8 x10*3/UL 2.0-7.8 [facility] ([facility]) ID Date Data Source [id number] 06/29/2021 10:11:00 AM EDT [facility] ([facility]) Name Value Range Interpretation Code Description Data Maggi rce(s) Supporting Document(s) Thyrotropin [Units/volume] in Serum or Plasma by Detec tion limit <= 0.05 mIU/L 3.24 uIU/mL 0.36-3.74 [facility] ([facility] ) ID Date Data Source [id number] 06/29/2021 10:11:00 AM EDT [facility] ([facility]) Name Value Range Interpretation Code Description Data Maggi rce(s) Supporting Document(s) Urea nitrogen [Mass/volume] in Serum or Plasma 18 mg/dL 7-18 [facility] ([facility]) Glucose [Mass/volume] in Serum or Plasma 88 mg/dL 74-99 [facility] ([facility]) 100-125 mg/dL PRE-DIABETES/FASTING >126 mg/dL DIABETES/FASTING Creatinine 0.9 mg/dL 0.6-1.3 [facility] ([facility]) Sodium [Moles/volume] in Serum or Plasma 139 meq/L 136-145 [facility] ([facility]) Potassium [Moles/volume] in Serum or Plasma 4.3 meq/L 3.5-5.1 [facility] ([facility]) Chloride [Moles/volume] in Serum or Plasma 102 meq/L 98-107 [facility] ([facility]) Carbon dioxide, total [Moles/volume] in Serum or Plasma 32 meq/L 21 -32 [facility] ([facility]) Glomerular filtration rate/1.73 sq M pre dicted among non-blacks [Volume Rate/Area] in Serum or Plasma by Creatinine-based formula (MDRD) 60 mL/min [facility] ([facility]) Calcium [Mass/volume] in Serum or Plasma 9.7 mg/dL 8.5-10.1 [facility] Glomerular filtration rate/1.73 sq M pre dicted among blacks [Volume Rate/Area] in Serum or Plasma by Creatinine-based formula (MDRD) Laboratory test result [facility] ([facility]) <content>CHRONIC KIDNEY DISEASE STAGING PER NKF</content>
<content></content>
<content>STAGE I & II GFR >= 60 NORMAL TO MILDLY DECREASED</content>
<content>STAGE III GFR 30-59 MODERATELY DECREASED</content>
<content>STAGE IV GFR 15-29 SEVERELY DECREASED</content>
<content>STAGE V GFR <15 VERY LITTLE GFR LEFT</content>
<content>ESRD GFR <15 ON INDUSTRIAL TRAINING SPECIALIST</content>
<content></content> ID Date Data Source [id number] 06/29/2021 10:11:00 AM EDT [facility] ([facility]) Name Value Range Interpretation Code Description Data Maggi rce(s) Supporting Document(s) Magnesium 2.1 mg/dL 1.8-2.4 [facility] ([facility]) ID Date Data Source [id number] 06/29/2021 10:11:00 AM EDT [facility] ([facility]) Name Value Range Interpretation Code Description Data Maggi rce(s) Supporting Document(s) Hemoglobin [Mass/volume] in Blood 12.5 g/dL 12.0-18.0 [facility] ([facility]) Leukocytes [#/volume] in Blood by Automated count 4.6 x10*3/UL 4.1-10 .9 [facility] ([facility]) Erythrocytes [#/volume] in Blood by Automated count 3.86 x10*6/UL 4.2 0-6.30 [facility] ([facility]) MCV 94.8 fL 80.0-97.0 [facility]) Hematocrit [Volume Fraction] of Blood by Automated count 36.6 % 3 7.0-51.0 [facility] ([facility]) MCH 32.6 pg 26.0-32.0 [facility] ([facility]) MCHC 34.3 g/dL 31.0-38.0 [facility] ([facility] Erythrocyte distribution width [Ratio] by Automated count 14.0 % 11.6-13.7 [facility] ([facility]) Platelets [#/volume] in Blood by Automated count 317 x10*3/UL 140-440 [facility] ([facility]) Mid % 5.8 % 1.7-9.3 [facility] ([facility]) Lymph % 22.0 % 10.0-58.5 [facility] ([facility]) MPV 7.7 FL 7.8-11.0 [facility] ([facility] Lymph # 1.0 x10*3/UL 0.6-4.1 [facility] ([facility]) Neut % 72.2 % 37.0-92.0 [facility] Mid # 0.3 x10*3/UL 0.1-0.6 [facility] ([facility]) Neut # 3.3 x10*3/UL 2.0-7.8 [facility] ([facility]) ID Date Data Source [id number] 06/14/2021 03:05:00 PM EDT [facility] [address] [place] [address] PHONE: [phone] FAX: [phone] Name .................. : LEDY Fry Acct Number.................. : [id number] ROOM. ................. : TR-08 MR Number ................... : [id number] Stay type ............. : E/R Discharge Date......... ... : 06/14/21 Admit Date ......... : 06/14/21 Admit Phys .................... : TERRANCE Fry Date of ....... : 1940 Family Phys ................... : NON STAFF Phone .................. : [phone] Age ................................ : 80 Film# .................. .:[id number] Sex ................................. : F Unsigned transcriptions are preliminary reports and do not represent a medical or legal document CT HEAD W/O CONTRAST [id number] COMPLETE:06/14/21 09:45 [id number] R mariposa(s): Head Injury CT BRAIN WITHOUT IV CONTRAST INDICATION: Head injury COMPARISON: None CONTRAST: None One or more of the following dose reduction techniques were utilized in effectively lowering the radiation dose for this examination: Automated Exposure Control, Adjustment of the mA and/or kV according to patient size, or Iterative Reconstruction. FINDINGS: Ventricles and sulci are mildly prominent within normal limits for the patient's age. Swartz white differentiation is intact. No extra-axial collection or intracranial hemorrhage. 8 mm well-defined low-attenuation focus in the right thalamus is likely an old lacunar infarct. No acute infarction is seen. Patchy decreased density is seen in the periventricular and subcortical white matter which is nonspecific but most likely due to chronic small vessel ischemic change. No mass or mass effect. Calvarium and skull base are within normal limits. No fracture. To the extent included sinuses are clear. IMPRESSION: 1. Atrophy and chronic ischemic changes in the white matter. 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 2. No acute hemorrhage. No skull fracture. Page 1 of [address] [place] [address] PHONE: [phone] FAX: [phone] Name .................. : LEDY Fry Acct Number.................. : [id number] ROOM. ................. : TR- MR Number ................... : [id number] Stay type ............. : E/R Discharge Date......... ... : 06/14/21 Admit Date ......... : 06/14/21 Admit Phys .................... : TERRANCE Fry Date of ....... : 1940 Family Phys ................... : NON STAFF Phone .................. : [phone] Age ................................ : 80 Film# .................. .:[id number] Sex ................................. : F Unsigned transcriptions are preliminary reports and do not represent a medical or legal document CT HEAD W/O CONTRAST [id number] COMPLETE:06/14/21 09:45 [id number] Reason(s): Head Injury Electronically Reviewed and Signed By Kyle Mckeon MD , 06/14/21 15:05, EN[facility] Transcribe Initials: JUAN , Transcribe Date: 06/14/21 13:49, Dictation Date: Copy for: EMERGENCY DEPT via modem Copy for: 710 MED REC DISCHARGED Page 2 of 2 Name Value Range Interpretation Code Description Data Maggi rce(s) Supporting Document(s) ID Date Data Source [id number] 06/14/2021 09:37:00 AM EDT [facility] 1 OrderSheet [facility] Emergency Department [address] [place] [address] Phone #: ext- [phone] 06/14/2021 09:34 Patient: ROYA VILLAFANA Sex: F : 1940 Age: 80yWEIGHT:75.2 kg (S) HEIGHT:63 inches (S) BMI:29.4ALLERGIES: No Known Drug AllergyCHIEF COMPLAINT: headDIAGNOSIS: ContusionLAB ORDERSOrder Description Priority Entered Acknowledged InitialedDIAGNOSTIC STUDY ORDERSOrder Description Priority Entered Acknowledged InitialedCT Head W/O Cont STAT 09:45 06/14/2021 10:06 Bentley(Oxygen?(No)) Moises Rose RN Reason for Study: Head InjuryMEDICATION/IV/DRIP/FLUID ORDERSOrder Description Priority Entered Acknowledged InitialedAcetaminophen PO 09:45 06/14/2021 10:13 [id number] mg (NOW x1) Moises Rose ; Boaz RNGENERAL ORDERSOrder Description Priority Entered Acknowledged Initialed[Electronically signed by Moises Rose (14:30 06/14/2021)][Electronically signed by Bentley Sandra RN (16:37 06/14/2021)][Electronically locked by Bentley Sandra RN (16:37 06/14/2021)] Name Value Range Interpretation Code Description Data Maggi rce(s) Supporting Document(s) ID Date Data Source [id number] 06/14/2021 09:37:00 AM EDT [facility] 1 Medication Reconciliation Report [facility] Emergency Department [address] [place] [address] Phone #: ext- [phone] 06/14/2021 09:34 Patient: ROYA VILLAFANA Sex: F : 1940 Age: 80yWeight: 75.2 kgHeight/Length: 63 in.BMI: 29.4ALLERGIES: No Known Drug AllergyThe patient's Home Medications are listed below:CONTINUE TAKING THE FOLLOWING MEDICATIONS: Aspirin Oral (81 mg), daily Atrovent Nasal Cymbalta Oral 90mg, daily Fosamax Oral 70 mg, once a week Gabapentin Oral (400 mg) 2 capsules, daily Levothyroxine Sodium Oral 125 mcg, daily Loratadine Oral 10 mg, daily Losartan Potassium Oral 50 mg, daily Oxybutynin Chloride ER Oral (5 mg), daily Plavix Oral 75 mg, daily Protonix Oral 20 mg, daily Zocor Oral 20 mg, dailyThe source(s) of the original Home Medication information:patient's shelter recordThe following Medications were given to the patient in the Emergency Department: 2 Medication Reconciliation Report [facility] Emergency Department [address] [place] [address] Phone #: ext- [phone] 06/14/2021 09:34 Patient: ROYA VILLAFANA Sex: F : 1940 Age: 80yAcetaminophen [PO] PO 650 mg, administered: 10:13 06/14/2021The following Medications were prescribed to the patient:None. Name Value Range Interpretation Code Description Data Maggi rce(s) Supporting Document(s) ID Date Data Source [id number] 06/14/2021 09:37:00 AM EDT [facility] 1 Medication Administration Record [facility] Emergency Department [address] [place] [address] Phone #: ext- [phone] 06/14/2021 09:34 Patient: ROYA VILLAFANA Sex: F : 1940 Age: 80yWeight: 75.2 kgHeight/Length: 63 inBMI: 29.4ALLERGIES: No Known Drug Allergy Date/Time Medication Administered Medication OrderedGiven ACETAMINOPHEN [PO] Acetaminophen PO 650 mg (NOW10:13 06/14/2021 Dose: 650 mg Tablets PO x1)Bentley Sandra RN Name Value Range Interpretation Code Description Data Maggi rce(s) Supporting Document(s) ID Date Data Source [id number] 06/14/2021 09:37:00 AM EDT [facility] 1 General Instructions [facility] Emergency Department [address] [place] [address] Phone #: ext- [phone] 06/14/2021 09:34 Patient: ROYA VILLAFANA Sex: F : 1940 Age: 80ySingle contusion to the head.INSTRUCTIONSWarnings: HEAD INJURY PRECAUTIONS: An observer must check on the patient frequently for the next24 hours to confirm that the patient responds as expected, is not confused, has no new weakness ornumbness, and has no other problems.GENERAL WARNINGS: Return or contact your physician immediately if your condition worsens orchanges unexpectedly, if not improving as expected, or if other problems arise.Your Current Medications: Your current home medications have been reviewed.CONTINUE TAKING THE FOLLOWING MEDICATIONS:Aspirin Oral : Tablet Chewable 81 mg, daily.Atrovent Nasal.Cymbalta Oral : 90mg daily.Fosamax Oral : 70 mg once a week.Gabapentin Oral : Capsule 400 mg, 2 capsules daily.Levothyroxine Sodium Oral : 125 mcg daily.Loratadine Oral : 10 mg daily.Losartan Potassium Oral : 50 mg daily.Oxybutynin Chloride ER Oral : Tablet Extended Release 24 Hour 5 mg, daily.Plavix Oral : 75 mg daily.Protonix Oral : 20 mg daily.Zocor Oral : 20 mg daily.Follow-up:Follow up with your healthcare provider.Understanding of the discharge instructions verbalized by patient. ADDITIONAL INFORMATIONSoft Tissue Bruise (Contusion)You have a bruise (contusion). There is swelling and some bleeding under the skin. Thisinjury generally takes a few days to a few weeks to heal. During that time, the bruise will typicallychange in color from reddish, to purple-blue, to greenish-yellow, then to yellow-brown. 2 General Instructions [facility] Emergency Department [address] [place] [address] Phone #: ext- [phone] 06/14/2021 09:34 Patient: ROYA VILLAFANA Sex: F : 1940 Age: 80yHome care Elevate the injured area to reduce pain and swelling. As much as possible, sit or lie down with the injured area raised about the level of your heart. This is especially important during the first 48 hours. Ice the injured area to help reduce pain and swelling. Wrap an ice pack in a thin towel. Apply to the bruised area for 20 minutes every 1 to 2 hours the first day. Continue this 3 to 4 times a day until the pain and swelling goes away. You can make an ice pack by placing ice cubes in a plastic bag. Unless another medicine was prescribed, you can take acetaminophen, ibuprofen, or naproxen to control pain. Talk with your doctor before using these medicines if you have chronic liver or kidney disease or ever had a stomach ulcer or digestive bleeding.Follow-up careFollow up with your healthcare provider, or as advised. Call if you are not better in 1 to 2 weeks.When to seek medical adviceCall your healthcare provider right away if you have any of the following: Increased pain or swelling Bruise is on an arm or leg and arm or leg becomes cold, blue, numb or tingly Signs of infection: Warmth, drainage, or increased redness or pain around the contusion Inability to move the injured area or body part Bruise is near your eye and you have problems with your eyesight or eye Frequent br uising for unknown reasons [id number] [employer]. [address] [place] [address]. All rights reserved. This information is not intended as asubstitute for professional medical care. Always follow your healthcare professional's instructions.Scalp Bruise with Sleep MonitoringA bruise (contusion) happens when small blood vessels break open and leak blood into the nearbyarea. A bruise on the scalp can result from a bump, hit, or fall. Symptoms can include changes in skincolor . For instance, the skin may turn blue or black. Swelling and pain may also occur.Because the injury was to your head, it could have caused a mild brain injury (concussion). You don'thave symptoms of a concussion at this time. But these can show up later. For the next 24 hours (orpossibly longer), you and someone caring for you will need to watch for the symptoms listed below 3 General Instructions [facility] Emergency Department [address] [place] [address] Phone #: ext- [phone] 06/14/2021 09:34 Patient: ROYA VILLAFANA Sex: F : 1940 Age: 80y(see the Sleep Monitoring section).The swelling should go down in a few days. Bruising and pain may take longer to go away.Home careSleep monitoringSomeone must stay with you for the next 24 hours, or longer, if directed. If you fall asleep, this personshould wake you up every 2 hours to check for symptoms of concussion. These include: Headache Nausea or vomiting Dizziness Sensitivity to light or noise Unusual sleepiness or grogginess Trouble falling asleep Personality changes Vision changes Confusion Memory loss Trouble walking or clumsiness Loss of consciousness (even for a short time) Inability to be awakenedIf any of these symptoms develop at any time, get emergency medical care right away. If noconcussion symptoms are noted during the first 24 hours, keep watching for symptoms for the nextday or so. Ask your provider if someone should stay with you during this time.General care If you have been prescribed medicines for pain, take them as directed. Don't take other medicines without talking with your provider first. Don't take NSAIDs such as aspirin or ibuprofen. Don't take blood-thinner (anticoagulant) medicines such as warfarin, unless your doctor tells you to. 4 General Instructions [facility] Emergency Department [address] [place] [address] Phone #: ext- [phone] 06/14/2021 09:34 Patient: ROYA VILLAFANA Sex: F : 1940 Age: 80y To help reduce swelling and pain, apply a cold pack to the injured area for up to 20 minutes at a time, every 1 to 2 hours, or as directed. Use a cold pack or bag of ice wrapped in a thin towel. Never apply a cold pack or ice directly to the skin. For the next 24 hours or longer, if instructed: o Don't drink alcohol or use sedatives or other medicines that make you sleepy. o Don't drive or operate machinery. o Don't do anything strenuous, such as heavy lifting or straining. o Limit tasks that need concentration. This includes reading, watching TV, using a smartphone or computer, and playing video games. o Don't return to sports, exercise, or other activity that could result in another injury.Follow- up careFollow up with your healthcare provider, or as directed. If imaging tests were done, they will be lookedat by a doctor. You will be told of the results and any new findings that may affect your care.When to seek medical adviceCall your healthcare provider right away if any of these occur: Pain worsens or can't be relieved with medicines New or increased swelling or bruising Fever of 100.4F (38C) or higher, or as directed by your healthcare provider Redness, warmth, bleeding, or drainage from the injured area Any depression or bony abnormality in the injured area Fluid drainage or bleeding from the nose or earsCall 911Call 911 right away if any of these occur: Stiff neck Weakness or numbness in any part of the body Seizures 5 General Instructions [facility] Emergency Department [address] [place] [address] Phone #: ext- [phone] 06/14/2021 09:34 Patient: ROYA VILLAFANA Sex: F : 1940 Age: 80y [id number] [employer] [place] [address]. All rights reserved. This information is not intended as asubstitute for professional medical care. Always follow your healthcare professional's instructions. You have been given the following additional information: Soft Tissue Contusion Scalp Contusion, with Sleep Monitoring(Electronically signed by Moises Rose 06/14/2021 14:30) Name Value Range Interpretation Code Description Data Maggi rce(s) Supporting Document(s) ID Date Data Source [id number] 06/14/2021 09:37:00 AM EDT [facility] 1 Clinical Report - Nurses [facility] Emergency Department [address] [place] [address] Phone #: ext- [phone] 06/14/2021 09:34 Patient: ROYA VILLAFANA Sex: F : 1940 Age: 80yTRIAGEArrived by EMS. Historian: EMS and patient. ( [facility], slippedon water and fell hitting head, only c/o slight headache, no LOC).Triage time: 09:36 06/14/2021. Acuity: LEVEL 3.Chief Complaint: FALL. Slipped; fell onto tile surface while walking. Landed on head.(slipped on water and hit back of head).Alert. No acute distress.Location of injuries: head. This occurred about one hour ago. Occurred at a shelter. No loss ofconsciousness.Pre-hospital notification of patient arrival was received.Treatment MANAGER COMPLETIONS:None.SEPSIS SCREEN: SIRS SCREEN NEGATIVE. SEPSIS SCREEN NEGATIVE. No suspected or confirmedsigns of infection present. --09:52 06/14/21 Maira Wu RN09:36 06/14/21. BP: 185/88. MAP: 120. HR: 73. RR: 16. O2 saturation: 95%. Temp: 98 F. Pain level now:01/14. --09:52 06/14/21 Maira Wu RN.Weight: 75.2 kg stated. Height/Length: 63 inches Per Patient. BMI: 29.4. --09:38 06/14/21 Maira Wu RN.MedicationsLevothyroxine Sodium Oral 125 mcg, daily. --09:43 06/14/21 Maira Wu, BIA Oxybutynin Chloride ER Oral (Tablet Extended Release 24 Hour 5 mg), daily. --09:43 06/14/21 Maira Wu RN Cymbalta Oral 90mg, daily. --09:43 06/14/21 Maira Wu RN Loratadine Oral 10 mg, daily. --09:43 06/14/21 Maira Wu RN Protonix Oral 20 mg, daily. --09:43 06/14/21 Maira Wu RN Zocor Oral 20 mg, daily. --09:45 06/14/21 Maira Wu RN Losartan Potassium Oral 50 mg, daily. --09:46 06/14/21 Maira Wu RN Gabapentin Oral (Capsule 400 mg) 2 capsules, daily. --09:46 06/14/21 Maira Wu RN Plavix Oral 75 mg, daily. --09:46 06/14/21 Maira Wu RN Atrovent Nasal. --09:47 06/14/21 Maira Wu RN Aspirin Oral (Tablet Chewable 81 mg), daily. --09:47 06/14/21 Maira Wu RN Fosamax Oral 70 mg, once a week. --09:48 06/14/21 Maira Wu RN. 2 Clinical Report - Nurses [facility] Emergency Department [address] [place] [address] Phone #: ext- [phone] 06/14/2021 09:34 Patient: ROYA VILLAFANA Sex: F : 1940 Age: 80yAllergiesNo Known Drug Allergy. --09:40 06/14/21 Maira Wu RN.PROBLEMS:Depression.Anxiety Reaction.Obstructive Sleep Apnea.Fall.TIA - Transient Ischemic Attack.Hypothyroidism.Hypertension.Gastroesophageal Reflux Disease.Back Pain.Arthritis. --09:50 06/14/21 Maira Wu RN.Medication/allergy information source: the patient's shelter record. --09:52 8/8/21 Maira Wu RN.ADDITIONAL SURGERIES:Appendectomy.Back Surgery.Foot surgery.Rectal surgery. --09:50 06/14/21 Maira Wu RN.HistoryPAST MEDICAL HX: Immunizations: (covid vaccine, also had covid).SOCIAL HX: Former smoker. Regular alcohol use. No drug use. She was offered HIV testing butdeclined and hepatitis C testing but declined. She has not traveled outside the [place]Infectious disease exposure: No infectious disease exposure.SELF HARM ASSESSMENT: Self harm assessment was performed. The patient answered "no" to thequestion(s) "Have you recently felt down, depressed, or hopeless?".ABUSE ASSESSMENT: No report of abuse.NUTRITIONAL RISK ASSESSMENT: The nutritional risk assessment revealed no deficiencies.FUNCTIONAL ASSESSMENT: Functional assessment: no impairments noted.LEARNING NEEDS ASSESSMENT: The learning needs assessment revealed no barriers.FALL RISK ASSESSMENT: Fall risk assessment completed. Risk factors identified include severe pain,dizziness and patient medications, age greater than 65 years, history of fall and impairment of mobility and 3 Clinical Report - Nurses [facility] Emergency Department [address] [place] [address] Phone #: ext- [phone] 06/14/2021 09:34 Patient: ROYA VILLAFANA Sex: F : 1940 Age: 80y cognition. Fall interventions initiated. Patient placed on stretcher. Side rails up x2. Bed in low position. Brakes on. Call light in reach of patient; uses walker. SKIN INTEGRITY ASSESSMENT: Skin integrity risk assessment completed. No skin integrity risk identified. --09:52 06/14/21 Maira Wu RN. FAMILY HX: (noncontributory). --11:28 06/14/21 Moises Rose. Interventions Advanced care plan. Patient has a ps-cai-akvzqshnixw (DNR). --09:52 06/14/21 Maira Wu RN.PHYSICAL ASSESSMENTTo room via stretcher.GENERAL / NEURO / PSYCH: Alert. Oriented X 4. Appears in no acute distress.HEENT: Pupils equal, round and reactive to light. Head non-tender.RESPIRATORY: Respirations not labored. Chest nontender.CVS: Pulses within normal limits. Capillary refill less than 2 seconds.GI / : Abdomen soft and nontender.EXTREMITIES: Extremities do not exhibit normal ROM. Neuro-vascular status intact to the extremity.SKIN: Skin intact. Skin is warm and dry. --09:53 06/14/21 Maira Wu RN.NURSING PROGRESS NOTESReassurance given. Two patient identifiers checked. Bed placed in lowest position. Brakes of bed on.Patient ready for evaluation. --09:53 06/14/21 Maira Wu RN 10:10 06/14/21. BP: 184/72. HR: 67. RR: 16. O2 saturation: 92%. --10:11 06/14/21 [facility] 10:13 06/14/2021 Acetaminophen PO Tablets 650 mg given. Allergies verified and confirmed 5 rights. Information reviewed with patient. --10:13 06/14/21 Bentley Sandra RN Patient transported to CT by stretcher with mask and emissions repair technician. (1040). --10:52 06/14/21 Bentley Sandra RN Patient returned from CT by stretcher with mask and emissions repair technician. (1055). --10:57 06/14/21 Bentley Sandra RN.DISPOSITION / DISCHARGE 11:14 06/14/21. BP: 187/93. MAP: 124. HR: 72. RR: 18. O2 saturation: 96% on room air. Temp: 97.4 F (temporal). Pain level now: 0/10. --11:15 06/14/21 Bentley Sandra RN 11:22 06/14/21. Condition at departure: unchanged. No learning barriers present. Discharge instructions provided and reviewed with the patient. Reviewed medication(s) (no changes). Reviewed referrals. Provided to follow-up provider. Patient verbalized understanding. Written instructions provided 4 Clinical Report - Nurses [facility] Emergency Department [address] [place] [address] Phone #: ext- [phone] 06/14/2021 09:34 Patient: ROYA VILLAFANA Sex: F : 1940 Age: 80y in [place]. The patient was discharged by the physician. She was discharged to the shelter. She left via ambulance and on a stretcher. --11:51 06/14/21 Maira Wu RN Departure time: 13:00 06/14/2021. --13:06 06/14/21 Bentley Sandra RN.Locked/Released at 06/14/2021 16:37 by Bentley Sandra RN Name Value Range Interpretation Code Description Data Maggi rce(s) Supporting Document(s) ID Date Data Source [id number] 06/14/2021 09:37:00 AM EDT [facility] 1 Clinical Report - Physicians/Mid Levels [facility] Emergency Department [address] [place] [address] Phone #: ext- [phone] 06/14/2021 09:34 Patient: ROYA VILLAFANA Sex: F : 1940 Age: 80y Time Seen: 09:46 06/14/2021. Arrived- By ambulance. Historian- patient.HISTORY OF PRESENT ILLNESS Chief Complaint: INJURY TO HEAD. Location of injuries- head. The injury occurred just prior to arrival. Fell: This was not an incised wound. Occurred at a shelter. ( Slipped on wet floor while walking to bathroom.). The patient complains of mild pain. The patient sustained a blow to the head. No loss of consciousness. (No nausea. some pain to touch on back of head. She was not light-headed after fall. no pain over tailbone.).REVIEW OF SYSTEMSNo numbness, hearing loss or loss, nausea or chest pain. No depression, weakness, loss of vision,vomiting or difficulty breathing. No bladder dysfunction, laceration, fever, fever or decreased vision. Noepistaxis, urinary incontinence, back pain, joint pain or neck pain. No dizziness, numbness, seizure,diabetic symptoms or easy bruising. The patient has had a headache but no pain on weight bearing. Allother systems reviewed and are negative.PAST HISTORYSee nurses notes. Hypertension. Tetanus immunization status is up-to-date. Problems: Depression. Anxiety Reaction. Obstructive Sleep Apnea. TIA - Transient Ischemic Attack. Hypertension. Gastroesophageal Reflux Disease. Hypothyroidism. Arthritis. Additional Surgeries: Appendectomy. Back Surgery. Foot surgery. Rectal surgery. 2 Clinical Report - Physicians/Mid Levels [facility] Emergency Department [address] [place] [address] Phone #: ext- [phone] 06/14/2021 09:34 Patient: ROYA VILLAFANA Sex: F : 1940 Age: 80y Medications: Fosamax Oral 70 mg, once a week. Aspirin Oral (Tablet Chewable 81 mg), daily. Atrovent Nasal. Plavix Oral 75 mg, daily. Gabapentin Oral (Capsule 400 mg) 2 capsules, daily. Losartan Potassium Oral 50 mg, daily. Zocor Oral 20 mg, daily. Protonix Oral 20 mg, daily. Loratadine Oral 10 mg, daily. Cymbalta Oral 90mg, daily. Oxybutynin Chloride ER Oral (Tablet Extended Release 24 Hour 5 mg), daily. Levothyroxine Sodium Oral 125 mcg, daily. Allergies: No Known Drug Allergy.SOCIAL HISTORYNever smoker. Resides in an assisted living center.FAMILY HISTORY(noncontributory).ADDITIONAL NOTESThe nursing notes have been reviewed.PHYSICAL EXAMVital Signs: 06/14/2021 09:36 BP: 185/88. MAP: 120. HR: 73. RR: 16. O2 saturation: 95%. Temp: 98 F.Pain level now: 01/14.Appearance: Alert. No acute distress.Head: No swelling of head. No Gustafson's sign. (mild tenderness to palpation to posterior scalp. nocrepitus).Eyes: Pupils equal, round and reactive to light. EOM intact.ENT: No dental injury. Pharynx normal.Neck: No pain with movement of head/neck. Neck non-tender. Painless ROM. No vertebraltenderness.CVS: Heart sounds normal. Pulses normal.Respiratory: Painless inspiration. Chest nontender.Abdomen: Soft and nontender.Back: No tenderness. ROM normal.Skin: Skin intact. Skin warm and dry.Extremities: Normal inspection. Pelvis stable. Extremities atraumatic. No lower extremity edema.Neuro: Oriented X 3. Mood/affect normal. Speech normal. No motor deficit. No sensory deficit.LABS, X-RAYS, AND EKG 3 Clinical Report - Physicians/Mid Levels [facility] [address] [place] [address] Phone #: ext- [phone] 06/14/2021 09:34 Patient: ROYA VILLAFANA Sex: F : 1940 Age: 80yCT Head: No acute changes. No hemorrhage and no intracranial mass. There is atrophy is present.(old lacunar infarct.). The study was interpreted by the radiologist.Laboratory Tests:CT Head W/O Cont: (DEEPA: 06/14/2021 09:45) ( MsgRcvd 06/14/2021 13:50) In Progress Exam [place] [address] PHONE: [phone] FAX: [phone] Name .................. : LEDY Fry Acct Number.................. : [id number] ROOM. ................. : TR- 08 MR Number ................... : [id number] Stay type ............. : E/R Discharge Date......... ... : 06/14/21 Admit Date ......... : 06/14/21 Admit Phys .................... : TERRANCE Fry Date of ....... : 1940 Family Phys ................... : NON STAFF Phone .................. : [phone] Age ................................ : 80 Film# .................. .:[id number] Sex ................................. : F Unsigned transcriptions are preliminary reports and do not represent a medical or legal document CT HEAD W/O CONTRAST [id number] COMPLETE:06/14/21 09:45 [id number] Reason(s): Head Injury CT BRAIN WITHOUT IV CONTRAST INDICATION: Head injury COMPARISON: None CONTRAST: None One or more of the following dose reduction techniques were utilized in effectively lowering the radiation dose for this examination: Automated Exposure Control, Adjustment of the mA and/or kV according to patient size, or Iterative Reconstruction. FINDINGS: Ventricles and sulci are mildly prominent within normal limits for the patient's age. Swartz white differentiation is intact. No extra-axial collection or intracranial hemorrhage. 8 mm well-defined low- attenuation focus in the right thalamus is likely an old lacunar infarct. No acute infarction is seen. Patchy decreased density is seen in the periventricular and subcortical white matter which is nonspecific but most likely due to chronic small vessel ischemic change. No mass or mass effect. Calvarium and skull base are within normal limits. No fracture. To the extent included sinuses are clear. IMPRESSION: 1. Atrophy and chronic ischemic changes in the white matter. 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 2. No acute hemorrhage. No skull fracture. Page 1 4 Clinical Report - Physicians/Mid Levels [facility] [address] [place] [address] Phone #: ext- [phone] 06/14/2021 09:34 Patient: ROYA VILLAFANA Sex: F : 1940 Age: 80y [address] [place] [address] PHONE: [phone] FAX: [phone] Name .................. : LEDY Fry Acct Number.................. : [id number] ROOM. ................. : TR-08 MR Number ................... : [id number] Stay type ............. : E/R Discharge Date......... ... : 06/14/21 Admit Date ......... : 06/14/21 Admit Phys .................... : TERRANCE Fry Date of ....... : 1940 Family Phys ................... : NON STAFF Phone .................. : [phone] Age ................................ : 80 Film# .................. .:[id number] Sex ................................. : F Unsigned transcriptions are preliminary reports and do not represent a medical or legal document CT HEAD W/O CONTRAST [id number] COMPLETE:06/14/21 09:45 [id number] Reason(s): Head Injury Electronically Reviewed and Signed By DCTNAME , SIGNDATE, ENMA Transcribe Initials: JUAN , Transcribe Date: 06/14/21 13:49, Dictation Date: <<REPDIST>> Page 2 of 2.PROGRESS AND PROCEDURESCourse of Care: 11:06 06/14/21. Resting comfortably. No altered mental status. vital signs normal. Nohematoma to the scalp 11:53 06/14/21. No worsening headache. due to the fact that patient is on Plavix, CT head performed to rule out subdural hematoma. Disposition: Discharged. Condition: stable.CLINICAL IMPRESSION Single contusion to the head.INSTRUCTIONS Warnings: HEAD INJURY PRECAUTIONS: An observer must check on the patient frequently for the next 5 Clinical Report - Physicians/Mid Levels [facility] [address] [place] [address] Phone #: ext- [phone] 06/14/2021 09:34 Patient: ROYA VILLAFANA Sex: F : 1940 Age: 80y 24 hours to confirm that the patient responds as expected, is not confused, has no new weakness or numbness, and has no other problems. GENERAL WARNINGS: Return or contact your physician immediately if your condition worsens or changes unexpectedly, if not improving as expected, or if other problems arise. Your Current Medications: Your current home medications have been reviewed. CONTINUE TAKING THE FOLLOWING MEDICATIONS: Aspirin Oral : Tablet Chewable 81 mg, daily. Atrovent Nasal. Cymbalta Oral : 90mg daily. Fosamax Oral : 70 mg once a week. Gabapentin Oral : Capsule 400 mg, 2 capsules daily. Levothyroxine Sodium Oral : 125 mcg daily. Loratadine Oral : 10 mg daily. Losartan Potassium Oral : 50 mg daily. Oxybutynin Chloride ER Oral : Tablet Extended Release 24 Hour 5 mg, daily. Plavix Oral : 75 mg daily. Protonix Oral : 20 mg daily. Zocor Oral : 20 mg daily. Follow-up: Follow up with your healthcare provider. Understanding of the discharge instructions verbalized by patient.(Electronically signed by Moises Rose 06/14/2021 14:30) Name Value Range Interpretation Code Description Data Maggi rce(s) Supporting Document(s) ID Date Data Source [id number] 04/20/2021 11:50:00 AM EDT [facility] ([facility]) Name Value Range Interpretation Code Description Data Maggi rce(s) Supporting Document(s) Calcidiol [Mass/volume] in Serum or Plasma 41.9 ng/mL 24.0-80.0 [facility] ([facility]) This test was performed using Fast[employer] I P Vitamin D immunoassay kit. Values obtained with different assay methods should not be used interchangeably. ID Date Data Source [id number] 04/20/2021 11:50:00 AM EDT [facility] ([facility]) Name Value Range Interpretation Code Description Data Maggi rce(s) Supporting Document(s) Thyrotropin [Units/volume] in Serum or Plasma by Detec tion limit <= 0.05 mIU/L 1.95 uIU/mL 0.36-3.74 [facility] ([facility] ) ID Date Data Source [id number] 04/20/2021 11:50:00 AM EDT [facility] Name Value Range Interpretation Code Description Data Maggi rce(s) Supporting Document(s) Cholesterol [Mass/volume] in Serum or Plasma 169 mg/dL 131-200 [facility] ([facility]) Triglyceride [Mass/volume] in Serum or Plasma 97 mg/dL 30-150 [facility] ([facility]) Cholesterol in LDL [Mass/volume] in Serum or Plasma by calcu lation 84 CALC 50-159 [facility] ([facility]) Cholesterol in HDL [Mass/volume] in Serum or Plasma 66 mg/dL 35-60 [facility] ([facility]) ID Date Data Source [id number] 04/20/2021 11:50:00 AM EDT [facility] ([facility]) Name Value Range Interpretation Code Description Data Maggi rce(s) Supporting Document(s) Glucose [Mass/volume] in Serum or Plasma 90 mg/dL 74-99 [facility] ([facility]) 100-125 mg/dL PRE-DIABETES/FASTING >126 mg/dL DIABETES/FASTING Urea nitrogen [Mass/volume] in Serum or Plasma 22 mg/dL 7-18 [facility] ([facility]) Creatinine 1.0 mg/dL 0.6-1.3 [facility] ([facility]) Sodium [Moles/volume] in Serum or Plasma 137 meq/L 136-145 [facility] ([facility]) Potassium [Moles/volume] in Serum or Plasma 4.5 meq/L 3.5-5.1 [facility] ([facility]) Chloride [Moles/volume] in Serum or Plasma 100 meq/L 98-107 [facility] ([facility]) Carbon dioxide, total [Moles/volume] in Serum or Plasma 30 meq/L 21 -32 [facility] ([facility]) Total Bilirubin 0.5 mg/dL 0.2-1.0 [facility] ([facility]) Calcium [Mass/volume] in Serum or Plasma 9.8 mg/dL 8.5-10.1 [facility] ([facility]) Alkaline phosphatase isoenzyme [Units/volume] in Serum or Pl asma 99 mg/dL 46-116 [facility] ([facility]) Alanine aminotransferase [Enzymatic activity/volume] in Seru m or Plasma 25 U/L 12-78 [facility] ([facility]) Aspartate aminotransferase [Enzymatic activity/volume] in Serum or Plasma 25 U/L 15-37 [facility] Albumin [Mass/volume] in Serum or Plasma 3.9 g/dL 3.4-5.0 [facility] ([facility]) Proteinase 3 Ab [Units/volume] in Serum 8.0 g/dL 6.4-8.2 [facility] ([facility]) A/G Ratio 0.95 CALC 1.00-1.90 [facility]) Glomerular filtration rate/1.73 sq M pre dicted among blacks [Volume Rate/Area] in Serum or Plasma by Creatinine-based formula (MDRD) Laboratory test result [facility] ([facility]) <content>CHRONIC KIDNEY DISEASE STAGING PER NKF</content>
<content></content>
<content>STAGE I & II GFR >= 60 NORMAL TO MILDLY DECREASED</content>
<content>STAGE III GFR 30-59 MODERATELY DECREASED</content>
<content>STAGE IV GFR 15-29 SEVERELY DECREASED</content>
<content>STAGE V GFR <15 VERY LITTLE GFR LEFT</content>
<content>ESRD GFR <15 ON INDUSTRIAL TRAINING SPECIALIST</content>
<content></content> Glomerular filtration rate/1.73 sq M pre dicted among non-blacks [Volume Rate/Area] in Serum or Plasma by Creatinine-based formula (MDRD) 53 mL/min [facility] ID Date Data Source [id number] 04/20/2021 11:50:00 AM EDT [facility] Name Value Range Interpretation Code Description Data Maggi rce(s) Supporting Document(s) Erythrocytes [#/volume] in Blood by Automated count 3.89 x10*6/UL 4.2 0-6.30 [facility] ([facility]) Leukocytes [#/volume] in Blood by Automated count 5.4 x10*3/UL 4.1-10 .9 [facility] Hemoglobin [Mass/volume] in Blood 12.5 g/dL 12.0-18.0 [facility] ([facility]) MCV 94.0 fL 80.0-97.0 [facility] ([facility]) Hematocrit [Volume Fraction] of Blood by Automated count 36.5 % 3 7.0-51.0 [facility] ([facility]) MCH 32.2 pg 26.0-32.0 [facility] ([facility]) Platelets [#/volume] in Blood by Automated count 336 x10*3/UL 140-440 [facility] Erythrocyte distribution width [Ratio] by Automated count 14.6 % 11.6-13.7 [facility] ([facility]) MCHC 34.2 g/dL 31.0-38.0 [facility] ([facility]) Mid % 8.0 % 1.7-9.3 [facility] ([facility]) Lymph % 30.6 % 10.0-58.5 [facility] ([facility]) MPV 7.8 FL 7.8-11.0 [facility] ([facility]) Mid # 0.5 x10*3/UL 0.1-0.6 [facility] ([facility]) Lymph # 1.6 x10*3/UL 0.6-4.1 [facility] ([facility]) Neut % 61.4 % 37.0-92.0 [facility] ([facility]) Neut # 3.3 x10*3/UL 2.0-7.8 [facility] ([facility]) ID Date Data Source [id number] 03/01/2021 12:00:00 AM EDT [facility] Name Value Range Interpretation Code Description Data Maggi rce(s) Supporting Document(s) SARS-CoV2 Rapid Antigen Negative [facility] This lab was ordered by [facility] and reported by [facility]. ID Date Data Source [id number] 01/22/2021 01:55:00 PM EDT [facility] ([facility]) Name Value Range Interpretation Code Description Data Maggi rce(s) Supporting Document(s) Hemoglobin [Mass/volume] in Blood 12.3 g/dL 12.0-18.0 [facility] ([facility]) Erythrocytes [#/volume] in Blood by Automated count 3.77 x10*6/UL 4.2 0-6.30 [facility] ([facility]) Leukocytes [#/volume] in Blood by Automated count 4.9 x10*3/UL 4.1-10 .9 [facility] MCV 94.9 fL 80.0-97.0 [facility] Hematocrit [Volume Fraction] of Blood by Automated count 35.8 % 3 7.0-51.0 [facility] ([facility]) MCH 32.6 pg 26.0-32.0 [facility]) MCHC 34.4 g/dL 31.0-38.0 [facility] ([facility]) Platelets [#/volume] in Blood by Automated count 287 x10*3/UL 140-440 [facility] Erythrocyte distribution width [Ratio] by Automated count 14.0 % 11.6-13.7 [facility] ([facility]) Mid % 7.8 % 1.7-9.3 [facility]) MPV 8.1 FL 7.8-11.0 [facility] ([facility]) Lymph % 33.2 % 10.0-58.5 [facility] Neut % 59.0 % 37.0-92.0 [facility] ([facility]) Lymph # 1.6 x10*3/UL 0.6-4.1 [facility] ([facility]) Neut # 2.9 x10*3/UL 2.0-7.8 [facility] ([facility]) Mid # 0.4 x10*3/UL 0.1-0.6 [facility] ([facility]) ID Date Data Source [id number] 12/25/2020 09:51:00 PM EST [facility] ([facility]) Name Value Range Interpretation Code Description Data Maggi rce(s) Supporting Document(s) AB Screen (Indirect Brionna)Vis Laboratory test result [facility] ([facility]) Blood Type Laboratory test result [facility] ([facility]) ID Date Data Source [id number] 12/25/2020 09:51:00 PM EST [facility] ([facility]) Name Value Range Interpretation Code Description Data Maggi rce(s) Supporting Document(s) Glucose, Fasting 119 mg/dL 70-100 [facility] ([facility]) Blood Urea Nitrogen 19 mg/dL 7-18 [facility] ([facility]) Creatinine For GFR 0.90 mg/dL 0.55-1.30 [facility] ([facility]) Sodium Level 137 meq/L 136-145 [facility] ([facility]) Glomerular Filtration Rate Laboratory test result [facility] ([facility]) <content>Units are mL/min/1.73 m2</content>
<content></content>
<content>Chronic Kidney Disease Staging per NKF:</content>
<content></content>
<content>Stage I & II GFR >=60 Normal to Mildly Decreased</content>
<content>Stage III GFR 30- 59 Moderately Decreased</content>
<content>Stage IV GFR 15-29 Severely Decreased</content>
<content>Stage V GFR <15 Very Little GFR Left</content>
<content>ESRD GFR <15 on INDUSTRIAL TRAINING SPECIALIST</content>
<content></content> Potassium Serum 4.1 meq/L 3.5-5.1 [facility] ([facility]) Chloride Level 103 meq/L 98-107 [facility] ([facility]) Anion Gap 9 meq/L 8-16 [facility]) Calcium Level 9.3 mg/dL 8.8-10.2 [facility] ([facility]) Carbon Dioxide Level 25 meq/L 21-32 [facility] ([facility]) ID Date Data Source [id number] 12/25/2020 09:51:00 PM EST [facility] ([facility]) Name Value Range Interpretation Code Description Data Maggi rce(s) Supporting Document(s) White Blood Count 5.5 10 4.0-10.0 [facility] ([facility]) Red Blood Count 3.67 10 4.00-5.40 [facility] ([facility]) Hemoglobin 11.8 g/dL 12.0-15.5 [facility] Mean Corpuscular Volume 98.1 fl 80.0-96.0 [facility] ([facility]) Hematocrit 36.0 % 36.0-47.0 [facility] ([facility]) Mean Corpuscular HGB Conc 32.8 g/dL 32.0-36.5 [facility] ([facility]) Mean Corpuscular Hemoglobin 32.2 pg 27.0-33.0 [facility] Red Cell Distribution Width 13.5 % 11.5-14.5 [facility] ([facility] Platelet Count, Automated 324 10 150-450 [facility] ([facility] Nucleated Red Blood Cell % 0.0 % 0-0 [facility] ([facility]) ID Date Data Source [id number] 12/22/2020 09:00:00 AM EST [facility] Name Value Range Interpretation Code Description Data Maggi rce(s) Supporting Document(s) SARS coronavirus 2 RNA Not Detected [facility] [place] This lab was ordered by [facility] and reported by [facility]. ID Date Data Source [id number] 12/15/2020 06:33:00 AM EST [facility] Name Value Range Interpretation Code Description Data Maggi rce(s) Supporting Document(s) SARS coronavirus 2 RNA Not Detected [facility] [place] This lab was ordered by [facility] and reported by [facility]. ID Date Data Source [id number] 12/09/2020 10:09:00 AM EST [facility] ([facility] Name Value Range Interpretation Code Description Data Maggi rce(s) Supporting Document(s) Thyrotropin [Units/volume] in Serum or Plasma by Detec tion limit <= 0.05 mIU/L 2.16 uIU/mL 0.36-3.74 [facility] ([facility] ) ID Date Data Source [id number] 12/09/2020 10:09:00 AM EST [facility] ([facility]) Name Value Range Interpretation Code Description Data Maggi rce(s) Supporting Document(s) Glucose [Mass/volume] in Serum or Plasma 92 mg/dL 74-99 [facility] ([facility]) 100-125 mg/dL PRE-DIABETES/FASTING >126 mg/dL DIABETES/FASTING Creatinine 0.9 mg/dL 0.6-1.3 [facility] ([facility]) Urea nitrogen [Mass/volume] in Serum or Plasma 18 mg/dL 7-18 [facility] ([facility]) Chloride [Moles/volume] in Serum or Plasma 102 meq/L 98-107 [facility] ([facility]) Sodium [Moles/volume] in Serum or Plasma 140 meq/L 136-145 [facility] ([facility]) Potassium [Moles/volume] in Serum or Plasma 4.1 meq/L 3.5-5.1 [facility] ([facility]) Calcium [Mass/volume] in Serum or Plasma 9.5 mg/dL 8.5-10.1 [facility] ([facility]) Carbon dioxide, total [Moles/volume] in Serum or Plasma 27 meq/L 21 -32 [facility] ([facility]) Glomerular filtration rate/1.73 sq M pre dicted among non-blacks [Volume Rate/Area] in Serum or Plasma by Creatinine-based formula (MDRD) 60 mL/min [facility] Glomerular filtration rate/1.73 sq M pre dicted among blacks [Volume Rate/Area] in Serum or Plasma by Creatinine-based formula (MDRD) Laboratory test result [facility] <content>CHRONIC KIDNEY DISEASE STAGING PER NKF</content>
<content></content>
<content>STAGE I & II GFR >= 60 NORMAL TO MILDLY DECREASED</content>
<content>STAGE III GFR 30-59 MODERATELY DECREASED</content>
<content>STAGE IV GFR 15-29 SEVERELY DECREASED</content>
<content>STAGE V GFR <15 VERY LITTLE GFR LEFT</content>
<content>ESRD GFR <15 ON INDUSTRIAL TRAINING SPECIALIST</content>
<content></content> ID Date Data Source [id number] 12/09/2020 10:09:00 AM EST [facility] ([facility]) Name Value Range Interpretation Code Description Data Maggi rce(s) Supporting Document(s) Erythrocytes [#/volume] in Blood by Automated count 3.33 x10*6/UL 4.2 0-6.30 [facility] ([facility]) Leukocytes [#/volume] in Blood by Automated count 6.1 x10*3/UL 4.1-10 .9 [facility] ([facility]) Hematocrit [Volume Fraction] of Blood by Automated count 31.6 % 3 7.0-51.0 [facility] ([facility]) Hemoglobin [Mass/volume] in Blood 11.2 g/dL 12.0-18.0 [facility] ([facility]) MCV 95.0 fL 80.0-97.0 [facility] [facility]) MCH 33.8 pg 26.0-32.0 [facility] [facility]) MCHC 35.6 g/dL 31.0-38.0 [facility] [facility]) Platelets [#/volume] in Blood by Automated count 392 x10*3/UL 140-440 [facility] ([facility]) Erythrocyte distribution width [Ratio] by Automated count 14.0 % 11.6-13.7 [facility] ([facility]) Lymph % 27.4 % 10.0-58.5 [facility] ([place] [facility]) MPV 7.1 FL 7.8-11.0 [facility] ([place] [facility]) Mid % 6.1 % 1.7-9.3 [facility] [facility] Neut % 66.5 % 37.0-92.0 [facility] [facility] Lymph # 1.6 x10*3/UL 0.6-4.1 [facility] ([facility]) Mid # 0.5 x10*3/UL 0.1-0.6 [facility] ([facility]) Neut # 4.0 x10*3/UL 2.0-7.8 [facility] ([facility]) ID Date Data Source [id number] 12/08/2020 08:00:00 AM EST [facility] Name Value Range Interpretation Code Description Data Maggi rce(s) Supporting Document(s) SARS coronavirus 2 RNA Not Detected [facility] [place] This lab was ordered by [facility] and reported by [facility]. ID Date Data Source [id number] 12/01/2020 08:00:00 AM EST [facility] Name Value Range Interpretation Code Description Data Maggi rce(s) Supporting Document(s) SARS coronavirus 2 RNA Not Detected [facility] [place] This lab was ordered by [facility] and reported by [facility]. ID Date Data Source [id number] 11/24/2020 11:00:00 AM EST [facility] Name Value Range Interpretation Code Description Data Maggi rce(s) Supporting Document(s) SARS coronavirus 2 RNA Not Detected [facility] [place] This lab was ordered by [facility] and reported by [facility]. ID Date Data Source [id number] 11/17/2020 06:00:00 AM EST [facility] Name Value Range Interpretation Code Description Data Maggi rce(s) Supporting Document(s) SARS coronavirus 2 RNA Not Detected [facility] [place] This lab was ordered by [facility] and reported by [facility]. ID Date Data Source [id number] 11/13/2020 07:57:00 PM EST [facility] Name Value Range Interpretation Code Description Data Maggi rce(s) Supporting Document(s) SARS-CoV-2 (COVID 19) NEGATIVE - SARS-CoV-2 (COVID19) [facility] This lab was ordered by [facility] a nd reported by [facility]. ID Date Data Source [id number] 11/12/2020 06:58:00 PM EST [facility] ([facility]) Name Value Range Interpretation Code Description Data Maggi rce(s) Supporting Document(s) Blood Type Laboratory test result [facility] ([facility]) AB Screen (Indirect Brionna)Vis Laboratory test result [facility]) ID Date Data Source [id number] 11/12/2020 06:58:00 PM EST [facility] ([facility]) Name Value Range Interpretation Code Description Data Maggi rce(s) Supporting Document(s) Blood Urea Nitrogen 15 mg/dL 7-18 [facility] ([facility]) Glucose, Fasting 123 mg/dL 70-100 [facility] ([facility]) Creatinine For GFR 0.88 mg/dL 0.55-1.30 [facility] ([facility]) Glomerular Filtration Rate Laboratory test result [facility] ([facility]) <content>Units are mL/min/1.73 m2</content>
<content></content>
<content>Chronic Kidney Disease Staging per NKF:</content>
<content></content>
<content>Stage I & II GFR >=60 Normal to Mildly Decreased</content>
<content>Stage III GFR 30- 59 Moderately Decreased</content>
<content>Stage IV GFR 15-29 Severely Decreased</content>
<content>Stage V GFR <15 Very Little GFR Left</content>
<content>ESRD GFR <15 on INDUSTRIAL TRAINING SPECIALIST</content>
<content></content> Sodium Level 137 meq/L 136-145 [facility] ([facility]) Potassium Serum 3.8 meq/L 3.5-5.1 MEDENT ([facility]) Chloride Level 103 meq/L 98-107 [facility] ([facility]) Carbon Dioxide Level 29 meq/L 21-32 [facility] Anion Gap 5 meq/L 8-16 [facility] ([place] [facility]) Calcium Level 9.2 mg/dL 8.8-10.2 [facility] ([facility]) ID Date Data Source [id number] 11/12/2020 06:58:00 PM EST MED[facility] ([facility]) Name Value Range Interpretation Code Description Data Maggi rce(s) Supporting Document(s) White Blood Count 6.3 10 4.0-10.0 [facility] Red Blood Count 3.43 10 4.00-5.40 [facility] ([facility]) Hemoglobin 10.9 g/dL 12.0-15.5 [facility] ([place] [facility]) Mean Corpuscular Volume 97.7 fl 80.0-96.0 [facility] ([place] [facility]) Hematocrit 33.5 % 36.0-47.0 [facility] ([place] [facility]) Mean Corpuscular HGB Conc 32.5 g/dL 32.0-36.5 MEDE NT ([place] [facility]) Mean Corpuscular Hemoglobin 31.8 pg 27.0-33.0 ME DENT ([facility] [facility]) Red Cell Distribution Width 12.6 % 11.5-14.5 ME DENT ([facility] [facility]) Platelet Count, Automated 405 10 150-450 MEDE NT ([facility] [facility]) Neutrophils % 49.0 % 36.0-66.0 MED[facility] ([facility]) [place] % 11.9 % 0.0-5.0 [facility] ([place] [facility]) Lymph % 32.3 % 24.0-44.0 [facility] ([place] [facility]) Baso % 0.8 % 0.0-1.0 [facility] ([place] [facility]) Eos % 5.7 % 0.0-3.0 [facility] ([place] [facility]) Immature Granulocyte % 0.3 % 0-3.0 MEDENT ([place] [facility]) Nucleated Red Blood Cell % 0.0 % 0-0 MED ENT ([place] [facility]) Neutrophils # 3.1 10 1.5-8.5 MEDENT ([facility]) Lymph # 2.0 10 1.5-5.0 [facility] ([place] [facility]) [place] # 0.8 10 0.0-0.8 [facility] ([place] [facility]) Eos # 0.4 10 0.0-0.5 [facility] ([place] [facility]) Baso # 0.1 10 0.0-0.2 [facility] ([place] [facility]) ID Date Data Source [id number] 11/12/2020 09:12:00 AM EST MEDENT ([facility]) Name Value Range Interpretation Code Description Data Maggi rce(s) Supporting Document(s) aPTT in Blood by Coagulation assay 34.8 s 24.2-38.5 [facility] ([place] [facility]) ID Date Data Source [id number] 11/12/2020 09:12:00 AM EST MEDENT ([facility]) Name Value Range Interpretation Code Description Data Maggi rce(s) Supporting Document(s) Inr 1.05 [facility] ([place] [facility]) THERAPUTIC HUMAN INR VALUES INDICATIONS NORMAL RANGES PROPHYLAXIS/TREATMENT OF: VENOUS THROMBOSIS 2.0-3.0 PULMONARY EMBOLISM 2.0-3.0 PREVENTION OF SYSTEMIC EMBOLISM FROM: TISSUE HEART VALVES 2.0-3.0 ACUTE MYOCARDIAL INFARCTION 2.0-3.0 VALVULAR HEART DISEASE 2.0-3.0 ATRIAL FIBRILLATION 2.0-3.0 MECHANICAL VALVES(HIGH RISK) 2.5-3.5 RECURRENT MYOCARDIAL INFARCTION 2.5-3.5 Prothrombin Time 13.9 s 12.5-14.3 [facility] ([facility]) ID Date Data Source [id number] 11/12/2020 08:43:00 AM EST [facility] Name Value Range Interpretation Code Description [facility] Supporting Document(s) White Blood Count 6.5 10 4.0-10.0 MED[facility] ([facility]) Red Blood Count 3.41 10 4.00-5.40 [facility] ([facility]) Hemoglobin 10.9 g/dL 12.0-15.5 MEDENT ([facility]) Hematocrit 33.5 % 36.0-47.0 [facility] Mean Corpuscular Volume 98.2 fl 80.0-96.0 [facility] ([place] [facility]) Mean Corpuscular Hemoglobin 32.0 pg 27.0-33.0 PA DENT ([facility] [facility]) Red Cell Distribution Width 12.5 % 11.5-14.5 PA DENT ([place] [facility]) Mean Corpuscular HGB Conc 32.5 g/dL 32.0-36.5 MEDE NT ([facility] [facility]) Platelet Count, Automated 398 10 150-450 MEDE NT ([place] [facility]) Neutrophils % 63.0 % 36.0-66.0 [facility] ([facility]) Lymph % 21.0 % 24.0-44.0 [facility] ([place] [facility]) [place] % 10.0 % 0.0-5.0 [facility] [facility] Baso % 0.5 % 0.0-1.0 [facility] [facility] Eos % 5.2 % 0.0-3.0 [facility] [facility] Immature Granulocyte % 0.3 % 0-3.0 [facility] ([place] [facility]) Nucleated Red Blood Cell % 0.0 % 0-0 MED ENT ([place] [facility]) Neutrophils # 4.1 10 1.5-8.5 [facility] ([facility]) Lymph # 1.4 10 1.5-5.0 [facility] [facility] [place] # 0.7 10 0.0-0.8 [facility] ([place] [facility] Eos # 0.3 10 0.0-0.5 [facility] ([place] [facility]) Baso # 0.0 10 0.0-0.2 [facility] ([place] [facility] ID Date Data Source [id number] 11/10/2020 10:42:00 AM EST MED[facility] ([facility]) Name Value Range Interpretation Code Description Data Maggi rce(s) Supporting Document(s) Glucose [Mass/volume] in Serum or Plasma 117 mg/dL 74-99 [facility] ([place] [facility]) 100-125 mg/dL PRE-DIABETES/FASTING >126 mg/dL DIABETES/FASTING Urea nitrogen [Mass/volume] in Serum or Plasma 17 mg/dL 7-18 [facility] ([place] [facility]) Creatinine 0.9 mg/dL 0.6-1.3 [facility] ([facility]) Sodium [Moles/volume] in Serum or Plasma 135 meq/L 136-145 [facility] ([place] [facility]) NOTE: RESULT VERIFIED. Chloride [Moles/volume] in Serum or Plasma 100 meq/L 98-107 [facility] ([place] [facility]) Potassium [Moles/volume] in Serum or Plasma 4.5 meq/L 3.5-5.1 [facility] [facility] Glomerular filtration rate/1.73 sq M pre dicted among non-blacks [Volume Rate/Area] in Serum or Plasma by Creatinine-based formula (MDRD) 60 mL/min [facility] [facility] Calcium [Mass/volume] in Serum or Plasma 9.0 mg/dL 8.5-10.1 [facility] [facility] Carbon dioxide, total [Moles/volume] in Serum or Plasma 27 meq/L 21 -32 [facility] ([place] [facility] Glomerular filtration rate/1.73 sq M pre dicted among blacks [Volume Rate/Area] in Serum or Plasma by Creatinine-based formula (MDRD) Laboratory test result [facility] ([facility]) <content>CHRONIC KIDNEY DISEASE STAGING PER NKF</content>
<content></content>
<content>STAGE I & II GFR >= 60 NORMAL TO MILDLY DECREASED</content>
<content>STAGE III GFR 30-59 MODERATELY DECREASED</content>
<content>STAGE IV GFR 15-29 SEVERELY DECREASED</content>
<content>STAGE V GFR <15 VERY LITTLE GFR LEFT</content>
<content>ESRD GFR <15 ON INDUSTRIAL TRAINING SPECIALIST</content>
<content></content> ID Date Data Source [id number] 11/10/2020 10:42:00 AM EST [facility] Name Value Range Interpretation Code Description Data Maggi rce(s) Supporting Document(s) Leukocytes [#/volume] in Blood by Automated count 7.0 x10*3/UL 4.1-10 .9 [facility] ([place] [facility]) Hemoglobin [Mass/volume] in Blood 11.3 g/dL 12.0-18.0 [facility] ([place] [facility]) Erythrocytes [#/volume] in Blood by Automated count 3.38 x10*6/UL 4.2 0-6.30 [facility] [facility]) MCV 94.9 fL 80.0-97.0 [facility] ([place] [facility]) Hematocrit [Volume Fraction] of Blood by Automated count 32.1 % 3 7.0-51.0 [facility] ([facility] [facility]) MCH 33.3 pg 26.0-32.0 [facility] ([place] [facility]) Erythrocyte distribution width [Ratio] by Automated count 13.6 % 11.6-13.7 [facility] ([facility] [facility]) MCHC 35.1 g/dL 31.0-38.0 [facility] ([place] [facility]) Platelets [#/volume] in Blood by Automated count 419 x10*3/UL 140-440 [facility] ([place] [facility]) MPV 7.4 FL 7.8-11.0 [facility] ([place] [facility]) Mid % 4.3 % 1.7-9.3 [facility] ([place] [facility]) Neut % 80.5 % 37.0-92.0 [facility] ([place] [facility]) Lymph % 15.2 % 10.0-58.5 [facility] ([place] [facility]) Mid # 0.4 x10*3/UL 0.1-0.6 [facility] ([place] [facility]) Lymph # 1.0 x10*3/UL 0.6-4.1 [facility] ([place] [facility]) Neut # 5.6 x10*3/UL 2.0-7.8 [facility] ([place] [facility]) ID Date Data Source [id number] 11/10/2020 07:48:00 AM EST [facility] Name Value Range Interpretation Code Description Data Maggi rce(s) Supporting Document(s) SARS coronavirus 2 RNA Not Detected [facility] This lab was ordered by [facility] and reported by [facility]. ID Date Data Source [id number] 11/02/2020 11:30:00 AM EST [facility] Name Value Range Interpretation Code Description Data Maggi rce(s) Supporting Document(s) SARS coronavirus 2 RNA [Presence] in Res piratory specimen by BIA with probe detection [facility] This lab was ordered by [facility] a nd reported by [facility]. ID Date Data Source [id number] 10/26/2020 09:58:00 AM EST [facility] Name Value Range Interpretation Code Description Data Maggi rce(s) Supporting Document(s) SARS coronavirus 2 RNA [Presence] in Res piratory specimen by BIA with probe detection [facility] This lab was ordered by [facility] a nd reported by [facility]. ID Date Data Source [id number] 10/22/2020 07:32:00 PM EST [facility] Name Value Range Interpretation Code Description Data Maggi rce(s) Supporting Document(s) Respiratory pathogens identified [Type] in Nasopharynx by Probe and target amplification method [facility] This lab was ordered by [facility] a nd reported by [facility]. ID Date Data Source [id number] 10/22/2020 11:54:00 AM EST [facility] Name Value Range Interpretation Code Description Data Maggi rce(s) Supporting Document(s) SARS coronavirus 2 RNA [facility] This lab was ordered by [facility] and reported by [facility]. ID Date Data Source [id number] 10/17/2020 02:46:00 PM EST [facility] Name Value Range Interpretation Code Description Data Maggi rce(s) Supporting Document(s) SARS coronavirus 2 RNA [facility] This lab was ordered by [facility] and reported by [facility]. ID Date Data Source [id number] 07/03/2020 03:49:53 PM EDT [facility] Current Problems: Chronic periodontitis, localized, severe (OQK21-D24.313)Dental disorder (ICD-525.9) (JME89-Z54.9)DENTAL TAOIST STATUS (ICD-V45.84) (EEY78-V59.811)Current Medications: AMOXICILLIN 500 MG CAPS (AMOXICILLIN) 1 [...] 20 (Performed by Zina Carrillo DMD) Chart Notes:jen (Jul 03 2020 4:26PM): Additional PPE requirements [...] to OS for extraction of #20. DX:defective jew with sym perio. P:refer to OSE-scribe Amoxicillin 500mg q8h until gone dispense 21 tabs zero refills and CHXInformed Pt about new pain management policy of the clinic regarding about narcotic,told pt to alternate Ibuprophen 600- 800mg and tylenol 500mg every 4 to 6 hrs for pain when needed. Assisted By: AM [place]: p/e.Zina Carrillo DMD by jen (07/03/2020 4:26 PM): Tooth Notes and Watches:- Tooth 20 Watch: In the Root and bothers her but not enough to fix yet. Sumi Delaney by isaiah (08/04/2017 4:38 PM): BuccalSumi Delaney by isaiah (08/14/2018 10:42 AM): - Tooth 20 Note: If patient calls because problem persists, Refer to OS for ext.Zina Carrillo DMD by [email or web address] (05/08/2020 9:55 AM): - Tooth 29 Note: [...] Known Allergies (updated 06/05/2020) Orders:Oral Surgery Referral [[id number]] Name Value Range Interpretation Code Description Data Maggi rce(s) Supporting Document(s) Procedure Social History Code Duration Value Status Description Data Source(s ) Smoking 09/11/2020 12:00:00 AM EST Patient is a former smoker completed Patient is a former smoker [facility] ([facility]) Vital Signs ID Date Data Source UNK Name Value Range Interpretation Code Description Data Source(s) Body height 63 [in_i] 63 [in_i] [facility] ([facility]) 5'3" Body weight 75.751 kg 75.751 kg [facility] ([facility]) Body surface area Derived from formula 1.79 m2 1.79 m2 [facility] ([facility]) Body weight 167.00 [lb_av] 167.00 [lb_av] [facility] Body mass index (BMI) [Ratio] 29.6 kg/m2 29.6 k g/m2 [facility] ([facility]) [place] body weight 115 [lb_av] 115 [lb_av] [facility] Heart rate 84 /min 84 /min [facility] ([facility]) Diastolic blood pressure 84 mm[Hg] 84 mm[Hg] [facility] ([facility] [facility]) Systolic blood pressure 132 mm[Hg] 132 mm[Hg] M EDENT ([place] [facility]) Systolic blood pressure 152 mm[Hg] 152 mm[Hg] M EDENT ([facility] [facility]) RT Arm Diastolic blood pressure 80 mm[Hg] 80 mm[Hg] [facility] ([facility] [facility]) RT Arm Body height 62.75 [in_i] 62.75 [in_i] [facility] ([facility]) 5'2.75" Body weight 168.00 [lb_av] 168.00 [lb_av] MEDEN T ([facility] [facility]) Body mass index (BMI) [Ratio] 30.0 kg/m2 30.0 k g/m2 [facility] ([facility] [facility]) Body height 63 [in_i] 63 [in_i] [facility] ([facility]) 5'3" Body weight 167.00 [lb_av] 167.00 [lb_av] MEDEN T ([facility]) Body mass index (BMI) [Ratio] 29.6 kg/m2 29.6 k g/m2 [facility] ([facility]) [place] body weight 115 [lb_av] 115 [lb_av] [facility] Body weight 75.751 kg 75.751 kg [facility] ([facility]) Body surface area Derived from formula 1.79 m2 1.79 m2 [facility] ([facility]) Systolic blood pressure 144 mm[Hg] 144 mm[Hg] [facility] [facility] RT Arm Diastolic blood pressure 80 mm[Hg] 80 mm[Hg] [facility] ([facility] [facility]) RT Arm Heart rate 80 /min 80 /min [facility] Body height 62.75 [in_i] 62.75 [in_i] [facility] 5'2.75" Body weight 169.12 [lb_av] 169.12 [lb_av] MEDEN T ([facility] [facility]) Body mass index (BMI) [Ratio] 30.2 kg/m2 30.2 k g/m2 [facility] ([facility] [facility]) Body height 63 [in_i] 63 [in_i] [facility] ([facility]) 5'3" Body weight 168.00 [lb_av] 168.00 [lb_av] MEDEN T ([facility]) Body mass index (BMI) [Ratio] 29.8 kg/m2 29.8 k g/m2 [facility] ([facility]) [place] body weight 115 [lb_av] 115 [lb_av] MEDEN T ([facility]) Body weight 76.205 kg 76.205 kg [facility] Body surface area Derived from formula 1.80 m2 1.80 m2 [facility] ([facility]) Body weight 170.12 [lb_av] 170.12 [lb_av] MEDEN T ([facility] [facility]) Body mass index (BMI) [Ratio] 30.4 kg/m2 30.4 k g/m2 [facility] ([place] [facility]) Heart rate 84 /min 84 /min [facility] ([facility]) Body height 62.75 [in_i] 62.75 [in_i] [facility] 5'2.75" Systolic blood pressure 112 mm[Hg] 112 mm[Hg] M EDENT ([place] [facility]) RT Arm Diastolic blood pressure 84 mm[Hg] 84 mm[Hg] [facility] ([place] [facility]) RT Arm Body height 63 [in_i] 63 [in_i] [facility] ([facility]) 5'3" Body weight 163.00 [lb_av] 163.00 [lb_av] MEDEN T ([facility]) Body mass index (BMI) [Ratio] 28.9 kg/m2 28.9 k g/m2 [facility] [place] body weight 115 [lb_av] 115 [lb_av] MEDEN T ([facility]) Body weight 73.937 kg 73.937 kg [facility] ([facility]) Body surface area Derived from formula 1.77 m2 1.77 m2 [facility] ([facility]) Body height 63 [in_i] 63 [in_i] [facility] ([facility]) 5'3" Body weight 163.00 [lb_av] 163.00 [lb_av] MEDEN T ([facility]) Body mass index (BMI) [Ratio] 28.9 kg/m2 28.9 k g/m2 [facility] ([facility]) [place] body weight 115 [lb_av] 115 [lb_av] MEDEN T ([facility]) Body weight 73.937 kg 73.937 kg [facility] Body surface area Derived from formula 1.77 m2 1.77 m2 [facility] ([facility]) Systolic blood pressure 122 mm[Hg] 122 mm[Hg] M EDENT ([facility] [facility]) Heart rate 82 /min 82 /min [facility] ([facility]) Diastolic blood pressure 70 mm[Hg] 70 mm[Hg] [facility] ([place] [facility]) Body height 62.75 [in_i] 62.75 [in_i] [facility] ([facility]) 5'2.75" Body weight 166.50 [lb_av] 166.50 [lb_av] MEDEN T ([facility] [facility]) Oxygen saturation in Arterial blood by Pulse oximetry 93 % 93 % [facility] ([facility] [facility]) Air Body mass index (BMI) [Ratio] 29.7 kg/m2 29.7 k g/m2 [facility] ([place] [facility]) Body height 63 [in_i] 63 [in_i] [facility] ([facility]) 5'3" Body weight 171.00 [lb_av] 171.00 [lb_av] MEDEN T ([facility]) Body mass index (BMI) [Ratio] 30.3 kg/m2 30.3 k g/m2 [facility] ([facility]) Respiratory rate 12 /min 12 /min [facility] ( [facility]) [place] body weight 115 [lb_av] 115 [lb_av] MEDEN T ([facility]) Body mass index (BMI) [Ratio] 28.7 kg/m2 28.7 k g/m2 [facility] ([facility] [facility]) Diastolic blood pressure 76 mm[Hg] 76 mm[Hg] [facility] ([facility] [facility]) Systolic blood pressure 122 mm[Hg] 122 mm[Hg] M EDENT ([facility] [facility]) Body height 62.75 [in_i] 62.75 [in_i] [facility] 5'2.75" Heart rate 88 /min 88 /min [facility] ([facility]) Body weight 161.00 [lb_av] 161.00 [lb_av] MEDEN T ([place] [facility]) Body height 63 [in_i] 63 [in_i] [facility] ([facility]) 5'3" Body weight 163.00 [lb_av] 163.00 [lb_av] MEDEN T ([facility]) Body mass index (BMI) [Ratio] 28.9 kg/m2 28.9 k g/m2 [facility] ([facility]) [place] body weight 115 [lb_av] 115 [lb_av] MEDEN T ([facility]) Body weight 73.937 kg 73.937 kg [facility] ([facility]) Body surface area Derived from formula 1.77 m2 1.77 m2 [facility] ([facility]) Body height 62.75 [in_i] 62.75 [in_i] [facility] ([facility]) 5'2.75" Body weight 162.12 [lb_av] 162.12 [lb_av] MEDEN T ([facility] [facility]) Body mass index (BMI) [Ratio] 28.9 kg/m2 28.9 k g/m2 [facility] ([place] [facility]) Diastolic blood pressure 76 mm[Hg] 76 mm[Hg] [facility] ([facility] [facility]) RT Arm Systolic blood pressure 106 mm[Hg] 106 mm[Hg] M EDENT ([facility] [facility]) RT Arm Heart rate 80 /min 80 /min [facility] ([facility]) Body height 63 [in_i] 63 [in_i] [facility] ([facility]) 5'3" Body weight 163.00 [lb_av] 163.00 [lb_av] MEDEN T ([facility]) Body mass index (BMI) [Ratio] 28.9 kg/m2 28.9 k g/m2 [facility] ([facility]) [place] body weight 115 [lb_av] 115 [lb_av] MEDEN T ([facility]) Body weight 73.937 kg 73.937 kg [facility] ([facility]) Body surface area Derived from formula 1.77 m2 1.77 m2 [facility] Body height 62.75 [in_i] 62.75 [in_i] [facility] ([facility]) 5'2.75" Body weight 165.00 [lb_av] 165.00 [lb_av] MEDEN T ([facility] [facility]) Body mass index (BMI) [Ratio] 29.5 kg/m2 29.5 k g/m2 [facility] ([facility] [facility]) Heart rate 92 /min 92 /min [facility] ([facility]) Systolic blood pressure 110 mm[Hg] 110 mm[Hg] M EDENT ([facility]) RT Arm Diastolic blood pressure 70 mm[Hg] 70 mm[Hg] [facility] ([facility] [facility]) RT Arm [place] body weight 115 [lb_av] 115 [lb_av] MEDEN T ([facility]) Body mass index (BMI) [Ratio] 28.9 kg/m2 28.9 k g/m2 [facility] ([facility]) Body weight 73.937 kg 73.937 kg [facility] ([facility]) Body surface area Derived from formula 1.77 m2 1.77 m2 [facility] Body height 63 [in_i] 63 [in_i] [facility] 5'3" Body weight 163.00 [lb_av] 163.00 [lb_av] MEDEN T ([facility]) Body mass index (BMI) [Ratio] 28.9 kg/m2 28.9 k g/m2 [facility] ([facility]) Body weight 163.00 [lb_av] 163.00 [lb_av] MED[facility] T ([facility]) [place] body weight 115 [lb_av] 115 [lb_av] [facility] T ([facility]) Body weight 73.937 kg 73.937 kg [facility] ([facility]) Body surface area Derived from formula 1.77 m2 1.77 m2 [facility] ([facility]) Body height 63 [in_i] 63 [in_i] [facility] ([facility]) 5'3" Body height 63 [in_i] 63 [in_i] [facility] ([facility]) 5'3" Body weight 163.00 [lb_av] 163.00 [lb_av] MED[facility] T ([facility]) Body mass index (BMI) [Ratio] 28.9 kg/m2 28.9 k g/m2 [facility] ([facility]) [place] body weight 115 [lb_av] 115 [lb_av] [facility] T ([facility]) Body weight 73.937 kg 73.937 kg [facility] ([facility]) Body surface area Derived from formula 1.77 m2 1.77 m2 [facility] ([facility]) Heart rate 104 /min 104 /min [facility] ([facility]) Diastolic blood pressure 80 mm[Hg] 80 mm[Hg] [facility] ([facility] [facility]) RT Arm Body height 62.75 [in_i] 62.75 [in_i] [facility] ( [facility] 5'2.75" Systolic blood pressure 142 mm[Hg] 142 mm[Hg] M EDENT ([facility]) RT Arm Systolic blood pressure 136 mm[Hg] 136 mm[Hg] [facility] [facility] Diastolic blood pressure 84 mm[Hg] 84 mm[Hg] [facility] ([facility]) Body weight 165.12 [lb_av] 165.12 [lb_av] MED[facility] T ([facility]) Body mass index (BMI) [Ratio] 29.5 kg/m2 29.5 k g/m2 [facility] ([facility]) Body height 63 [in_i] 63 [in_i] [facility] ([facility]) 5'3" Body weight 163.00 [lb_av] 163.00 [lb_av] MED[facility] T ([facility]) Body mass index (BMI) [Ratio] 28.9 kg/m2 28.9 k g/m2 [facility] ([facility]) [place] body weight 115 [lb_av] 115 [lb_av] [facility] T ([facility]) Body weight 73.937 kg 73.937 kg [facility] ([facility]) Body surface area Derived from formula 1.77 m2 1.77 m2 [facility] ([facility]) Systolic blood pressure 122 mm[Hg] 122 mm[Hg] M EDENT ([facility]) RT Arm Diastolic blood pressure 74 mm[Hg] 74 mm[Hg] MEDENT ([facility]) RT Arm Heart rate 96 /min 96 /min MEDENT ([facility]) Body height 62.75 [in_i] 62.75 [in_i] MEDENT ([facility]) 5'2.75" Body weight 163.00 [lb_av] 163.00 [lb_av] MEDEN T ([facility]) verbal Body mass index (BMI) [Ratio] 29.1 kg/m2 29.1 k g/m2 MEDENT ([facility]) [place] body weight 115 [lb_av] 115 [lb_av] MEDEN T ([facility]) Respiratory rate 12 /min 12 /min MEDENT ( [facility]) Body height 63 [in_i] 63 [in_i] MEDENT ([facility]) 5'3" Body weight 171.00 [lb_av] 171.00 [lb_av] MEDEN T ([facility]) Body mass index (BMI) [Ratio] 30.3 kg/m2 30.3 k g/m2 MEDENT ([facility]) Systolic blood pressure 146 mm[Hg] 146 mm[Hg] M EDENT ([facility]) Heart rate 98 /min 98 /min MEDENT ([facility]) Diastolic blood pressure 74 mm[Hg] 74 mm[Hg] [facility] ([facility]) Body height 62.75 [in_i] 62.75 [in_i] MEDENT ([facility]) 5'2.75" Body weight 161.00 [lb_av] 161.00 [lb_av] MEDEN T ([facility]) Body mass index (BMI) [Ratio] 28.7 kg/m2 28.7 k g/m2 [facility] ([facility]) Systolic blood pressure 120 mm[Hg] 120 mm[Hg] M [facility] ([facility]) Diastolic blood pressure 78 mm[Hg] 78 mm[Hg] [facility] ([facility]) Heart rate 94 /min 94 /min [facility] ([facility]) Oxygen saturation in Arterial blood by Pulse oximetry 95 % 95 % [facility] ([facility]) Room Air Body height 63 [in_i] 63 [in_i] [facility] ([facility]) 5'3" Body weight 168.00 [lb_av] 168.00 [lb_av] [facility] Body mass index (BMI) [Ratio] 29.8 kg/m2 29.8 k g/m2 [facility] ([facility]) [place] body weight 115 [lb_av] 115 [lb_av] [facility] Body weight 76.205 kg 76.205 kg [facility] ([facility]) Body surface area Derived from formula 1.80 m2 1.80 m2 [facility] ([facility]) Systolic blood pressure 122 mm[Hg] 122 mm[Hg] M EDENT ([facility]) RT Arm Diastolic blood pressure 60 mm[Hg] 60 mm[Hg] [facility] RT Arm Heart rate 88 /min 88 /min [facility] Body height 62.75 [in_i] 62.75 [in_i] [facility] 5'2.75" Body weight 169.50 [lb_av] 169.50 [lb_av] MEDEN T ([facility]) Body mass index (BMI) [Ratio] 30.3 kg/m2 30.3 k g/m2 [facility] ([facility]) Diastolic blood pressure 74 mm[Hg] 74 mm[Hg] MEDENT ([facility]) RT Arm Body weight 173.00 [lb_av] 173.00 [lb_av] MEDEN T ([facility]) Systolic blood pressure 166 mm[Hg] 166 mm[Hg] EDENT ([facility]) RT Arm Heart rate 80 /min 80 /min [facility] ([facility]) Body height 62.75 [in_i] 62.75 [in_i] [facility] ([facility]) 5'2.75" Body mass index (BMI) [Ratio] 30.9 kg/m2 30.9 k g/m2 MEDENT ([facility]) Body mass index (BMI) [Ratio] 3.0 kg/m2 3.0 kg /m2 MEDENT ([facility], ) Respiratory rate 12 /min 12 /min MEDENT ( [facility], ) Body height 63 [in_i] 63 [in_i] MEDENT ([facility], ) 5'3" Body weight 17.00 [lb_av] 17.00 [lb_av] MEDENT ([facility]) [place] body weight 115 [lb_av] 115 [lb_av] MEDEN T ([facility], ) Systolic blood pressure 136 mm[Hg] 136 mm[Hg] [facility] RT Arm Diastolic blood pressure 80 mm[Hg] 80 mm[Hg] MEDENT ([facility]) RT Arm Body weight 171.50 [lb_av] 171.50 [lb_av] MEDEN T ([facility]) Body mass index (BMI) [Ratio] 30.6 kg/m2 30.6 k g/m2 MEDENT ([facility]) Heart rate 88 /min 88 /min MED[facility] ([facility]) Body height 62.75 [in_i] 62.75 [in_i] MARKUS ([facility]) 5'2"
[2021-08-29 11:14] LABS: BASO % 0.2 % (0.0-1.0); EOS # 0.1 10^3/uL (0.0-0.5); EOS % 0.6 % (0.0-3.0); HEMATOCRIT 35.6 % (36.0-47.0); HEMOGLOBIN 12.1 g/dl (12.0-15.5); LYMPH # 1.7 10^3/uL (1.5-5.0); MEAN CORPUSCULAR HEMOGLOBIN 33.4 pg (27.0-33.0); MEAN CORPUSCULAR VOLUME 98.3 fl (80.0-96.0); MONO # 1.1 10^3/uL (0.0-0.8); MONO % 8.5 % (2.0-8.0); NEUTROPHILS # 9.4 10^3/uL (1.5-8.5); NEUTROPHILS % 76.1 % (36.0-66.0); PLATELET COUNT, AUTOMATED 252 10^3/uL (150-450); RED BLOOD COUNT 3.62 10^6/uL (4.00-5.40); WHITE BLOOD COUNT 12.4 10^3/uL (4.0-10.0)
[2021-08-29] MEDS ORDERED: OMEP-221 PO (11:38)
[2021-08-29] MEDS ORDERED: IPRA6SP NARES (11:38)
[2021-08-29] MEDS ORDERED: ALEN70TA82 PO (11:38)
[2021-08-29] MEDS ORDERED: HOME MED LIST COMPLETE! XX SCH (11:40)
[2021-08-29 11:47] LABS: ALBUMIN 3.4 GM/DL (3.2-5.2); ALT/SGPT 24 U/L (12-78); BILIRUBIN,DIRECT 0.3 MG/DL (0.0-0.2); BILIRUBIN,TOTAL 0.9 MG/DL (0.2-1.0); BLOOD UREA NITROGEN 16 MG/DL (7-18); CALCIUM LEVEL 8.6 MG/DL (8.8-10.2); CARBON DIOXIDE LEVEL 27 MEQ/L (21-32); CHLORIDE LEVEL 102 MEQ/L (98-107); CK-MB VALUE MASS 1.4 NG/ML (<3.6); CPK CREATINE PHOSPHOKINASE 66 U/L (26-192); CREATININE FOR GFR 0.83 MG/DL (0.55-1.30); GLOMERULAR FILTRATION RATE > 60.0 (>32); GLUCOSE, FASTING 99 MG/DL (70-100); LIPASE 31 U/L (73-393); MB/CK RELATIVE INDEX 2.12 (< OR =4); POTASSIUM SERUM 3.9 MEQ/L (3.5-5.1); SODIUM LEVEL 134 MEQ/L (136-145); TOTAL PROTEIN 7.5 GM/DL (6.4-8.2); TROPONIN I < 0.02 NG/ML (< 0.10)
--- NOTE | 2021-08-29 11:48 | REPVR ---
PROCEDURE INFORMATION: Exam: XR Lumbosacral Spine Exam date and time: 08/29/2021 11:21 AM Age: 80 years old Clinical indication: Pain and injury or trauma; Fall; Blunt trauma (contusions or hematomas); Low back pain TECHNIQUE: Imaging protocol: XR of the lumbosacral spine. Views: 4 or 5 views. COMPARISON: CR Spine. Lumbosacral, complete 04/19/2019 6:55 AM FINDINGS: Bones/joints: There is a moderate lumbar levo scoliotic curvature. There is accentuation of the normal lumbar lordosis. There is grade 1 anterolisthesis of L4 with respect to L5. Normal vertebral body alignment is otherwise preserved. Vertebral body heights are within normal limits. Soft tissues: Unremarkable. IMPRESSION: No fracture. Electronically signed by: Erin Long On 08/29/2021 11:48:13 AM
[2021-08-29 12:40] LABS: INR 1.05; PROTHROMBIN TIME 14.2 SECONDS (12.7-14.5)
[2021-08-29] MEDS ORDERED: ALBUTEROL 90 MCG/ACT 8GM HFA INHALER INH PRN (14:05)
--- OUTSIDE RECORDS SUMMARY | 2021-08-29 14:29 | CCD ---
Author Author [facility] Organization [facility] Address Unknown Phone Unavailable Care Team Providers Care Decker Operator Name Role Phone [place], Lorna PATTERN STORAGE CLERK Unavailable Unavailable [place], Lorna PATTERN STORAGE CLERK Unavailable Unavailable [place], Lorna PATTERN STORAGE CLERK Unavailable Unavailable [place], Lorna PATTERN STORAGE CLERK Unavailable Unavailable [place], Lorna PATTERN STORAGE CLERK Unavailable Unavailable [place], Lorna PATTERN STORAGE CLERK Unavailable Unavailable [place], Lorna PATTERN STORAGE CLERK Unavailable Unavailable [place], Lorna PATTERN STORAGE CLERK Unavailable Unavailable [place], Lorna PATTERN STORAGE CLERK Unavailable Unavailable [place], Lorna PATTERN STORAGE CLERK Unavailable Unavailable [place], Lorna PATTERN STORAGE CLERK Unavailable Unavailable [place], Lorna PATTERN STORAGE CLERK Unavailable Unavailable [place], Lorna PATTERN STORAGE CLERK Unavailable Unavailable [place], Lorna PATTERN STORAGE CLERK Unavailable Unavailable [place], Lorna PATTERN STORAGE CLERK Unavailable Unavailable [place], Lorna PATTERN STORAGE CLERK Unavailable Unavailable [place], Lorna PATTERN STORAGE CLERK Unavailable Unavailable [place], Lorna PATTERN STORAGE CLERK Unavailable Unavailable [place], Lorna PATTERN STORAGE CLERK Unavailable Unavailable [place], Lorna PATTERN STORAGE CLERK Unavailable Unavailable [place], Lorna PATTERN STORAGE CLERK Unavailable Unavailable [place], Lorna PATTERN STORAGE CLERK Unavailable Unavailable [place], Lorna PATTERN STORAGE CLERK Unavailable Unavailable [place], Lorna PATTERN STORAGE CLERK Unavailable Unavailable [place], Lorna PATTERN STORAGE CLERK Unavailable Unavailable [place], Lorna PATTERN STORAGE CLERK Unavailable Unavailable [place], Lorna PATTERN STORAGE CLERK Unavailable Unavailable [place], Lorna PATTERN STORAGE CLERK Unavailable Unavailable [place], Lorna PATTERN STORAGE CLERK Unavailable Unavailable [place], Lorna PATTERN STORAGE CLERK Unavailable Unavailable [place], Lorna PATTERN STORAGE CLERK Unavailable Unavailable [place], Lorna PATTERN STORAGE CLERK Unavailable Unavailable [place], Lorna PATTERN STORAGE CLERK Unavailable Unavailable [place], Lorna PATTERN STORAGE CLERK Unavailable Unavailable [place], Lorna PATTERN STORAGE CLERK Unavailable Unavailable Moises Rose MD Unavailable Unavailable [...] Unavailable Unavailable Jeff Dudley MD Unavailable Unavailable Jfef Dudley MD Unavailable Unavailable Jeff Dudley MD [...] Unavailable Unavailable Juan Mustafa MD Unavailable Unavailable uJan Mustafa MD Unavailable Unavailable Juan Mustafa MD [...] Unavailable RAMOS, M PATRICIA PA Unavailable Unavailable RAOMS, M PATRICIA PA Unavailable Unavailable NON, PHYSICIAN [...] is protected by Article 27-F of the [facility] Public Health law. If you continue you may have access to information: Regarding HIV / AIDS; Provided by facilities licensed or operated by the [facility] Office of Mental Health; or Provided by the [facility] Office for People With Developmental Disabilities. If such information is present, then the following [facility] mandated warning applies: This information has [...] law may result in a fine or group home sentence or both. A general authorization for the release of medical or other information is NOT sufficient authorization for further disc losure. Family History Family Member Name Family Member Gender Family Member Status Date o f Status Description Data Source(s) Unknown Male Problem [facility] ([facility] Unknown Unknown Problem [facility] ([facility], ) Unknown Male Problem [facility] ([facility] ) Unknown Male Problem [facility] ([facility] ) Unknown Female Problem MED[facility] ([facility]) Encounters Encounter Providers Location Date Indications Data Source(s ) Outpatient Attender: Jeff haddad 08/19/2021 01:30:00 PM EDT [facility] Outpatient Attender: Yakelin Russ 01:15:00 PM EDT MED[facility] ([facility] ) Outpatient Attender: Jeff haddad 07/20/2021 09:10:00 AM EDT [facility] ([facility] Outpatient Attender: Yakelin Russ 09:15:00 AM EDT MED[facility] ([facility] ) Emergency Attender: Moises Rose MDConsultant: STAFF NON 06/14/2021 09:37:00 AM EDT - 06/14/2021 01:00:00 PM EDT [facility] Patient discharged. Outpatient Attender: Jeff haddad 06/08/2021 01:00:00 PM EDT MED[facility] ([facility] Outpatient Attender: Yakelin Russ 10:00:00 AM EDT MED[facility] ([facility] ) Outpatient Attender: Jeff Lombardo/Calhoun/Hood/Reind l 04/28/2021 01:40:00 PM EDT [facility] ([facility] Outpatient Attender: Yakelin Russ 11:00:00 AM EDT MED[facility] ([facility] ) Outpatient Attender: Jacquelyn Mustafa MD Main office - [facility] 02/16/2021 10:15:00 AM EDT MED[facility] ([facility] Outpatient Attender: Yakelin Russ 01:15:00 PM EDT MED[facility] ([facility] ) Office Visit Attender: Jeff Lombardo/Calhoun/Hood/Reind l 01/12/2021 08:15:00 AM EST [facility] ([facility]) Outpatient Attender: Yakelin Russ 09:45:00 AM EST MED[facility] ([facility] ) Office Visit Attender: Sushil Shawang/Calhoun/Hood/Rein dl 12/29/2020 10:30:00 AM EST [facility] ([facility]) Outpatient Attender: Yakelin Russ 09:45:00 AM EST [facility] ([facility] ) Office Visit Attender: Jeff Lombardo/Calhoun/Hood/Reind l 12/05/2020 09:00:00 AM EST [facility] ([facility]) Office Visit Attender: Jeff Lombardo/Calhoun/Hood/Reind l 11/26/2020 07:10:00 AM EST [facility] ([facility]) Office Visit Attender: Jeff Lombardo/Calhoun/Hood/Reind l 11/20/2020 08:20:00 AM EST [facility] ([facility] Outpatient Attender: Yakelin Russ 09:30:00 AM EST [facility] ([facility] ) Outpatient Attender: Tyrell Lombardo/Luis Enrique/Hood/Re indl 11/10/2020 12:45:00 PM EST [facility] ([facility]) Outpatient Attender: Yakelin Russ 09:00:00 AM EST MED[facility] ([facility] ) Outpatient Attender: Jacquelyn Mustafa MD Main office - [facility] 11/03/2020 12:15:00 PM EST [facility] ([facility]) Outpatient Attender: Lorna Russ 12:40:00 PM EST [facility] ([facility] ) Outpatient Attender: PATRICIA Lombardo/Luis Enrique/Hood/Rein dl 09/11/2020 08:30:00 AM EST [facility] ([facility]) Outpatient Attender: Yakelin Russ 10:30:00 AM EST [facility] ([facility] ) Outpatient [facility] 09/04/2020 11:48:00 AM EDT [facility] 04:02:03 PM EDT [facility] 07/21/2020 04:01:00 PM EDT [facility] Outpatient Attender: Yakelin Russ 01:30:00 PM EDT MED[facility] ([facility] ) Office Visit Attender: Jacquelyn Mustafa MD Main office - [facility] 07/07/2020 09:00:00 AM EDT MED[facility] ([facility]) Outpatient [facility] 07/03/2020 04:28:02 PM EDT [facility] 07/03/2020 03:48:00 PM EDT [facility] 07/03/2020 02:34:00 PM EDT [facility] 07/03/2020 02:33:01 PM EDT [facility] Outpatient Attender: Yakelin Russ 10:45:00 AM EDT MED[facility] ([facility] ) Immunizations Vaccine Date Status Description Data Source(s) COVID-19 VACCINE Pfizer 12/22/2020 12:00:00 AM EST completed [facility] Vaccine Series Complete: YESThis Data wa s Submitted to [facility]. COVID-19 VACCINE Pfizer 12/01/2020 12:00:00 AM EST completed [facility] Vaccine Series Complete: NOThis Data was Submitted to [facility]. Influenza, injectable, MDCK, preservative free, stephanie valent 07/21/2020 01:30:00 PM EDT completed [facility]) Medications Medication Brand Name Start Date Product Form Dose Route Admi nistrative Instructions Pharmacy Instructions Status Indications Reaction Description Data Source(s) Omeprazole 40 MG Delayed Release Oral Capsule Omeprazole 08/19/2021 12:00:00 AM EDT ORAL active MEDENT ([facility], ) Bacitracin 0.5 UNT/MG / Polymyxin B 10 UNT/MG Topical Ointment [Polysporin] Polysporin 08/10/2021 12:00:00 AM EDT active MEDENT ([facility]) gabapentin 400 MG Oral Capsule Gabapentin 06/29/2021 12:00:00 AM EDT ORAL active MED[facility] ([facility]) Ipratropium Loyall Ipratropium Loyall 06/08/2021 12:00:00 AM EDT active MED[facility] ([facility]) Docusate Sodium 100 MG Oral Capsule Docusate Sodium 04/20/2021 1 2:00:00 AM EDT ORAL active [facility] ( [facility]) Petrolatum 1 MG/MG Topical Ointment [Vaseline] Vaseline 01/30/2021 12:00:00 AM EDT active MEDENT ([facility]) Bacitracin 0.5 UNT/MG / Polymyxin B 10 UNT/MG Topical Ointment [Polysporin] Polysporin 01/12/2021 12:00:00 AM EST active MED[facility] ([facility]) Covid-19 vaccine, Unspecified 12/22/2020 12:00:00 AM EST completed [facility] ([facility]) Medication administered onsite gabapentin 400 MG Oral Capsule Gabapentin 12/09/2020 12:00:00 AM EST ORAL active MED[facility] ([facility]) Losartan Potassium 50 MG Oral Tablet Losartan Potassium 12/2020 12:00:00 AM EST ORAL active [facility] 8 HR Acetaminophen 650 MG Extended Release Oral Tablet [Tylenol] Tylenol 8 Hour Arthritis Pain 12/09/2020 12:00:00 AM EST active MED[facility] ([facility]) Sinus Rinse Bottle Kit 12/05/2020 12:00:00 AM EST active MEDENT ([facility], ) Bacitracin 0.5 UNT/MG / Polymyxin B 10 UNT/MG Topical Ointment [Polysporin] Polysporin 12/05/2020 12:00:00 AM EST active MEDENT ([facility], ) Covid-19 vaccine, Unspecified 12/01/2020 12:00:00 AM EST completed [facility] ([facility]) Medication administered onsite Sodium Chloride 0.111 MEQ/ML Nasal Solution Saline Mist Spra y 11/11/2020 12:00:00 AM EST active M EDENT ([facility], ) Amoxicillin 875 MG / Clavulanate 125 MG Oral Tablet Am oxicillin/Clavulanate Potassium 11/05/2020 12:00:00 AM EST completed [facility] ([facility]) Aspirin 81 MG Delayed Release Oral Tablet Aspirin 81 2019 12:00:00 AM EST active MED[facility] ( [facility]) Super B Complex/Vitamin C 09/24/2020 12:00:00 AM EST ORA L completed [facility] ([facility] ) Cholecalciferol 2000 UNT Oral Tablet Vitamin D 09/15/2020 12:00:00 A M EST ORAL active MED[facility] ([facility]) clopidogrel 75 MG Oral Tablet Clopidogrel Bisulfate 07/25/2020 1 2:00:00 AM EDT active MED[facility] ( [facility], ) Administration Of Flu Vaccine 07/21/2020 12:00:00 AM EDT completed [facility] ([facility]) Medication administered onsite Insurance Providers Payer name Policy type / Coverage type Policy ID Covered green party ID Covered green party's relationship to rossi Policy Rossi Plan Information [facility] PART A [id number] SP [id number] MEDICARE [id number] SP [id number] D [facility] [id number] SP [id number] Medicare Natl Govt Servic Medicare Primary [id number] 2.840.1.676898.3.227.99.4595.39148.0 Self [id number] Medicare Natl Govt Servic Medicare Primary [id number] 2.0.1.000803.3.227.99.4595.67072.0 Self [id number] Medicare Natl Govt Servic Medicare Primary [id number] 2.0.1.798702.3.227.99.4595.86444.0 Self [id number] Medicare Natl Govt Servic Medicare Primary [id number] 2.840.1.955657.3.227.99.4595.51690.0 Self [id number] Medicare Natl Govt Servic Medicare Primary [id number] 2.840.1.998718.3.227.99.4595.13278.0 Self [id number] Medicare Natl Govt Servic Medicare Primary [id number] 2.840.1.222469.3.227.99.4595.08839.0 Self [id number] Medicare Natl Govt Servic Medicare Primary [id number] Self Medicare Natl Govt Servic Medicare Primary [id number] 2.840.1.396929.3.227.99.4595.07622.0 Self [id number] D Medicare Natl Govt Servic Medicare Primary [id number] 2.840.1.748392.3.227.99.4595.07376.0 Self [id number] Medicare Natl Govt Servic Medicare Primary [id number] 2.16.840.1.071289.3.227.99.4595.38126.0 Self [id number] Medicare Natl Govt Servic Medicare Primary [id number] 2.16.840.1.120365.3.227.99.4595.24472.0 Self [id number] Medicare Natl Govt Servic Medicare Primary [id number] 2.16.840.1.276359.3.227.99.4595.94777.0 Self [id number] Medicare Natl Govt Servic Medicare Primary [id number] 2.16.840.1.626167.3.227.99.4595.84778.0 Self [id number] Medicare Natl Govt Servic Medicare Primary [id number] Self [id number] Medicare Natl Govt Servic Medicare Primary [id number] 2.16840.1.986039.3.227.99.4595.51198.0 Self [id number] Medicare Natl Govt Servic Medicare Primary [id number] 2.16.840.1.838405.3.227.99.4595.64519.0 Self [id number] Medicare Natl Govt Servic Medicare Primary [id number] 2.16840.1.566099.3.227.99.4595.01174.0 Self [id number] Medicare Natl Govt Servic Medicare Primary [id number] 2.16840.1.392843.3.227.99.4595.95641.0 Self [id number] MEDICARE [id number] SP [id number] D Medicare Natl Govt Servic Medicare Primary [id number] Self [id number] Medicare Natl Govt Servic Medicare Primary [id number] 2.16840.1.778027.3.227.99.4595.32829.0 Self [id number] Medicare Natl Govt Servic Medicare Primary [id number] 2.16840.1.751601.3.227.99.4595.40969.0 Self [id number] Medicare Natl Govt Servic Medicare Primary [id number] 2.16840.1.458861.3.227.99.4595.12411.0 Self [id number] Medicare Natl Govt Servic Medicare Primary [id number] 2.16840.1.767163.3.227.99.4595.26455.0 Self [id number] Medicare C [id number] SELF [id number] Medicare Natl Govt Servic Medicare Primary [id number] 2.840.1.651397.3.227.99.4595.07179.0 Self [id number] Medicare Natl Govt Servic Medicare Primary [id number] 2.840.1.307507.3.227.99.4595.51312.0 Self [id number] Medicare Natl Govt Servic Medicare Primary [id number] Self [id number] Medicare Natl Govt Servic Medicare Primary [id number] 2.840.1.508381.3.227.99.4595.33806.0 Self [id number] Medicare Natl Govt Servic Medicare Primary [id number] 2.16840.1.398623.3.227.99.4595.42322.0 Self [id number] MEDICARE [id number] SP [id number] Medicare Natl Govt Servic Medicare Primary [id number] 2.16.840.1.722689.3.227.99.4595.11359.0 Self [id number] Medicare Natl Govt Serv Medicare Primary [id number] 2.16.840.1.848567.3.227.99.4595.77558.0 Self [id number] Medicare [facility] Medicare Primary [id number] 2.16.840.1.451106.3.227.99.4595.35057.0 Self [id number] Medicare Natl [facility] Primary [id number] 2.16.840.1.746974.3.227.99.4595.14624.0 Self [id number] [employer] [employer] (pr) Medigap Part B [id number] 2.16.840.1.774581.3.227.99.991.64529.0 Self [id number] [place] [employer] (pr) Medigap Part B [id number] 2.16.840.1.352768.3.227.99.991.63907.0 Self [id number] [place] [employer] (pr) Medigap Part B [id number] 2.16.840.1.348604.3.227.99.991.58291.0 Self [id number] [place] (pr) Medigap Part B 71475 Self [place] [employer] (pr) Medigap Part B [id number] 2.16.840.1.472417.3.227.99.991.89596.0 Self 0 [id number] [place] [employer] (pr) Medigap Part B [id number] 2.16.840.1.498586.3.227.99.991.94425.0 Self 0 [id number] [employer] Medigap Part B [id number] 2.16.840.1.380650.3.227. 99.4595.49706.0 Self [id number] [facility] Medigap Part B [id number] [id number] Self [id number] [employer] Medigap Part B [id number] Self [id number] [employer] [place] Medigap Part B 405309619 2..1.773457.3.227.99.4595.44444.0 Self [id number] [employer] Medigap Part B 792131432 2..1.052248.3.227. 99.4595.75250.0 Self [id number] [employer] [place] Medigap Part B 877700010 [id number] Self [id number] [employer] Medigap Part B 806098864 [id number] Self [id number] [employer] [place] Medigap Part B [id number] [id number] Self [id number] [employer] Medigap Part B 843739216 [id number] Self [id number] [employer] [place] Medigap Part B 620162504 2..486060.3.227.99.4595.83052.0 Self [id number] [employer] Medigap Part B 430840443 .1.675483.3.227. 99.4595.32417.0 Self 752601932 [employer] [place] Medigap Part B 483448417 .1.770636.3.227.99.4595.62647.0 Self 945049066 [employer] Medigap Part B 990353010 2..1.309348.3.227. 99.4595.70837.0 Self 541021653 [employer] [place] Medigap Part B 123807880 2.1.770762.3.227.99.4595.85902.0 Self 745772171 [employer] Medigap Part B [id number] 2.840.1.800211.3.227. 99.4595.35799.0 Self [id number] [employer] [place] Medigap Part B 061916120 2.840.1.112260.3.227.99.4595.36084.0 Self [id number] [employer] Medigap Part B 768090491 2.840.1.840579.3.227. 99.4595.51909.0 Self [id number] [employer] [place] Medigap Part B 116944092 2.840.1.896138.3.227.99.4595.95358.0 Self 515700415 [employer] Medigap Part B 399640033 2.840.1.245272.3.227. 99.4595.86400.0 Self [id number] [employer] [place] Medigap Part B 261567273 .0.1.207694.3.227.99.4595.94759.0 Self 744685009 [employer] Medig[employer] Part B 924428606 2.840.1.696048.3.227. 99.4595.43890.0 Self [id number] [employer] [place] Medigap Part B 409684023 2.840.1.925116.3.227.99.4595.91993.0 Self 703425649 [employer] Medigap Part B 977222142 2.840.1.413683.3.227. 99.4595.61183.0 Self 843538873 [employer] [place] Medigap Part B 112099476 2.840.1.098687.3.227.99.4595.67930.0 Self [id number] [employer] Medigap Part B 711092458 2.840.1.527979.3.227. 99.4595.85109.0 Self [id number] [employer] [place] Medigap Part B 374156880 2.840.1.066269.3.227.99.4595.10700.0 Self 675576683 [employer] Medigap Part B 475104666 2.840.1.407660.3.227. 99.4595.56695.0 Self 715939621 [employer] [place] Medigap Part B 325703144 2.840.1.902712.3.227.99.4595.04893.0 Self 908226424 [employer] Medigap Part B 161335286 2.840.1.979067.3.227. 99.4595.74679.0 Self 956995977 [employer] [place] Medigap Part B 583467040 2.840.1.072233.3.227.99.4595.75470.0 Self 552055981 [employer] Medigap Part B 204711606 2.840.1.396273.3.227. 99.4595.37592.0 Self [id number] [employer] [place] Medigap Part B 338755319 2.0.1.278156.3.227.99.4595.22066.0 Self 560763771 [employer] Medigap Part B 279782305 2.840.1.822984.3.227. 99.4595.44366.0 Self 447792922 [employer] [place] Medigap Part B [id number] 2.840.1.875214.3.227.99.4595.98742.0 Self 711291085 [employer] Medigap Part B 566445053 2.840.1.729753.3.227. 99.4595.32682.0 Self 973376722 [employer] [place] Medigap Part B 862610725 2.840.1.927697.3.227.99.4595.45522.0 Self 776085754 [employer] Medigap Part B 253487540 2.840.1.666934.3.227. 99.4595.90674.0 Self [id number] [employer] [place] Medigap Part B 053965556 2.840.1.846315.3.227.99.4595.90300.0 Self [id number] [employer] Medigap Part B 060034566 2.840.1.720180.3.227. 99.4595.28497.0 Self 523630218 [employer] [place] Medigap Part B 139254332 2.840.1.723756.3.227.99.4595.00556.0 Self 843086956 [employer] Medigap Part B 869735286 2.840.1.205425.3.227. 99.4595.44690.0 Self [id number] [employer] [place] Medigap Part B 813960121 2.840.1.218904.3.227.99.4595.66840.0 Self 260890483 [employer] Medigap Part B 335514536 2.840.1.032853.3.227. 99.4595.90385.0 Self [id number] [employer] [place] Medigap Part B 212887785 2.840.1.218671.3.227.99.4595.69711.0 Self 955157464 [employer] Medigap Part B 116355800 2.840.1.670605.3.227. 99.4595.29332.0 Self [id number] [employer] [place] Medigap Part B 952716937 2.840.1.407861.3.227.99.4595.16140.0 Self [id number] [employer] Medigap Part B 779690050 2.840.1.270841.3.227. 99.4595.40909.0 Self [id number] [employer] [place] Medigap Part B 750172481 2.840.1.242131.3.227.99.4595.34984.0 Self 396748964 [employer] Medigap Part B 655045206 2.840.1.880636.3.227. 99.4595.56750.0 Self 978423851 [employer] [place] Medigap Part B 400333093 2.840.1.248222.3.227.99.4595.60668.0 Self [id number] [employer] Medigap Part B 244066105 .0.1.177705.3.227. 99.4595.98551.0 Self [id number] [employer] [place] [id number] SP [id number] [employer] [place] Medigap Part B 620972823 .0.1.736043.3.227.99.4595.83446.0 Self [id number] [employer] [place] Medigap Part B 492337203 .0.1.115022.3.227.99.4595.03442.0 Self [id number] [employer] Medigap Part B 567242780 ..1.813246.3.227. 99.4595.95974.0 Self [id number] [employer] [place] Medigap Part B 719821888 .1.377767.3.227.99.4595.11828.0 Self [id number] [employer] Medigap Part B 400373993 ..1.266228.3.227. 99.4595.33473.0 Self 280947541 [employer] [place] Medigap Part B 392418315 ..1.285748.3.227.99.4595.83556.0 Self 151945142 [employer] Medigap Part B 141427799 .1.795728.3.227. 99.4595.75827.0 Self 771359987 [employer] [place] Medigap Part B 440739937 .0.1.409566.3.227.99.4595.65638.0 Self [id number] [employer] Medigap Part B 778789499 12.23.830.1.065241.3.227. 99.4595.82915.0 Self [id number] [employer] [place] Commercial [id number] 12.23.830.1.629125.3.227.99.8646.8206.0 Self 6 [id number] [employer] [place] Medigap Part B 989510942 .1.811043.3.227.99.4595.51017.0 Self [id number] [employer] [place] [employer] [id number] 2.16840.1.843918.3.227.99.8646.8206.0 Self 6 [id number] [employer] [place] Medigap Part B 78700 Self [id number] [id number] [employer] [place](pr) Medigap Part B 037607036 2.16840.1.614140.3.227.99.991.36698.0 Self 6 [id number] [employer] [place](pr) Medigap Part B 259632342 2.16840.1.351270.3.227.99.991.75867.0 Self 6 [id number] [employer] [place](pr) Medigap Part B 427914345 2.16840.1.466576.3.227.99.991.38240.0 Self 6 [id number] [employer] [place](pr) Medigap Part B 108441274 2.16840.1.184383.3.227.99.991.97724.0 Self 6 11385532 [employer] [place](pr) Medigap Part B 170467 Self [employer] [place](pr) Medigap Part B 925472412 2.16840.1.330745.3.227.99.991.86697.0 Self 6 [id number] [employer] [place](pr) Medigap Part B 276140670 2.16840.1.917247.3.227.99.991.15887.0 Self 6 48208905 [employer] [place](pr) Medigap Part B 189009471 2.16840.1.953383.3.227.99.991.15087.0 Self 6 [id number] [employer] [place](pr) Medigap Part B 547753770 2.16840.1.243879.3.227.99.991.35460.0 Self 6 [id number] Medicare [place] Medicare Primary [id number] Self [employer] [place](pr) Medigap Part B 934918021 2.16840.1.694245.3.227.99.991.41788.0 Self [id number] [employer] [place](pr) Medigap Part B [id number] Self [employer] [place](pr) Medigap Part B [id number].991.66537.0 Self [id number] [place] [id number] Self [id number] [employer] [place] Medigap Part B [id number].991.08488.0 Self [id number] [place] Med[place] [id number] 2.16840.1.098034.3.227.99.991. 02277.0 Self [id number] [place] [id number] 2.840.1.088835.3.227.99.991. 84247.0 Self [id number] [place] [id number]91.41846.0 Self [id number] [employer] (pr) Medigap Part B [id number] 2.16840.1.087465.3.227.99.991.93854.0 Self [id number] Medicaid S [id number] S [id number] [employer] (pr) Medigap Part B [id number] 2.16840.1.368865.3.227.99.991.34457.0 Self [id number] [place] [id number] 2.16840.1.082394.3.227.99.991. 20259.0 Self [id number] [employer] (pr) Medigap Part B [id number] 2.16840.1.411081.3.227.99.991.97527.0 Self [id number] [place] Medicare Primary [id number] [id number]5.0 Self 3 [id number] Medicaid [place] Med[place]ap Part B [id number] 2.16.840.1.495898.3.227.99.991. 29184.0 Self [id number] Medicare [place] Medicare Primary [id number] 2.16.840.1.972457.3.227.99.991.00069.0 Self 3 [id number] [place] Med[place] Part B [id number] 2.16.840.1.846225.3.227.99.991. 51101.0 Self [id number] [employer] (pr) Medigap Part B [id number] 2.16.0.1.802218.3.227.99.991.10655.0 Self [id number] Medicare [place] Medicare Primary [id number] 2.16.840.1.765429.3.227.99.991.44795.0 Self 3 [id number] [employer] [place] [id number] SP [id number] FIRST [facility] [id number] SP [id number] [place] [id number] SP [id number] [place] [id number] SP [id number] [place] MEDICAID [id number] SP [id number] Medicare C [id number] SELF [id number] Medicaid [facility] Healthcare S D [id number] SELF [id number] DME Jurisdiction A [facility] C [id number] SELF [id number] Medicaid CSC Healthcare S D [id number] SELF [id number] Medicare P [id number] S [id number] Medicare P [id number] S [id number] [facility] PART A [id number] SP [id number] Medicaid Medigap Part B [id number] 2.16.840.1.768454.3.227.99.4595.116 04.0 Self [id number] Medicaid Medicaid [id number] 2.16.840.1.454186.3.227.99.936.25335.0 S elf [id number] Medicare Medicare Primary [id number] 2.16.840.1.505932.3.227. 99.936.17022.0 Self [id number] SELF PAY UNAVAILABLE UNAVAILA BLE Medicaid Medigap Part B [id number] 2.16.840.1.859316.3.227.99.4595.116 04.0 Self [id number] Medicare Dme Supplies Medigap Part B 2.16.840.1.758655 .3.227.99.991.29282.0 Self Medicaid Medigap Part B [id number] Self [id number] Medicaid Medigap Part B [id number] 2.16.840.1.772317.3.227.99.4595.116 04.0 Self [id number] Medicare P [id number] S [id number] [id number] Medicare P [id number] S [id number] D Medicaid Medigap Part B [id number] 2.16.840.1.249266.3.227.99.4595.116 04.0 Self [id number] Medicare Dme Supplies Medigap Part B [id number] 2.16.840.1.835885.3.227.99.991.65191.0 Self 3 [id number] Medicaid Medigap Part B [id number] 2.16.840.1.925712.3.227.99.4595.116 04.0 Self [id number] Medicaid Medigap Part B [id number] 2.16.840.1.392736.3.227.99.4595.116 04.0 Self [id number] MEDICAID [id number] SP [id number] Medicaid Medigap Part B [id number] 2.16.840.1.392829.3.227.99.4595.116 04.0 Self [id number] Medicare Dme Supplies Medigap Part B [id number] 2.16.840.1.094743.3.227.99.991.45776.0 Self 3 [id number] Medicare Dme Medigap Part B [id number] 2.16.840.1.384331.3.227.99 .936.20136.0 Self [id number] Medicaid Medicaid [id number] 2.16.840.1.746110.3.227.99.936.72990.0 S elf [id number] [employer] [id number] 2.16.840.1.048019.3.227. 99.936.61854.0 Self [id number] Medicare Medicare Primary [id number] 2.16.840.1.021354.3.227. 99.936.98508.0 Self [id number] Medicaid Medigap Part B [id number] 2.16.840.1.703713.3.227.99.4595.116 04.0 Self [id number] Medicaid Medigap Part B [id number] 2.16.840.1.599696.3.227.99.4595.116 04.0 Self [id number] Medicaid Medicaid [id number] 2.16.840.1.022591.3.227.99.936.18889.0 S elf [id number] [employer] [id number] 2.16.840.1.905083.3.227. 99.936.24436.0 Self [id number] Medicare Medicare Primary [id number] 2.16.840.1.817847.3.227. 99.936.59794.0 Self [id number] Medicare Part B [facility] Other 0 [id number] S elf 0 Medicaid Medigap Part B [id number] 2.16.840.1.238199.3.227.99.4595.116 04.0 Self [id number] Medicaid Medigap Part B [id number] 2.16.840.1.081277.3.227.99.4595.116 04.0 Self [id number] Medicaid Medigap Part B [id number] 2.16.840.1.318411.3.227.99.4595.116 04.0 Self [id number] Medicaid Medigap Part B [id number] 2.16.840.1.843393.3.227.99.4595.116 04.0 Self [id number] Medicare Dme Supplies Medigap Part B [id number] 2.16.840.1.625463.3.227.99.991.86192.0 Self 3 [id number] FIRST [place] [id number] S [id number] MEDICARE C [id number] S [id number] D Medicaid Medigap Part B [id number] 2.16.840.1.309218.3.227.99.4595.116 04.0 Self [id number] Medicaid Medigap Part B [id number] 2.16840.1.101267.3.227.99.4595.116 04.0 Self [id number] Medicaid Medigap Part B [id number] 2.16.840.1.719010.3.227.99.4595.116 04.0 Self [id number] Medicaid Medicaid [id number] 2.16.840.1.596386.3.227.99.936.89097.0 S elf [id number] [employer] [id number] 2.16840.1.425864.3.227. 99.936.39040.0 Self [id number] Medicare Medicare Primary [id number] 2.16.840.1.443614.3.227. 99.936.11195.0 Self [id number] Medicaid Medigap Part B [id number] 2.16.840.1.788566.3.227.99.4595.116 04.0 Self [id number] Medicaid Medicaid [id number] 2.16.840.1.843117.3.227.99.936.65954.0 S elf [id number] [employer] [id number] 2.16.840.1.204918.3.227. 99.936.92161.0 Self [id number] Medicare Medicare Primary [id number] 2.16.840.1.033628.3.227. 99.936.19744.0 Self [id number] Medicaid Medigap Part B [id number] 2.16.840.1.315219.3.227.99.4595.116 04.0 Self [id number] [employer] [place] [id number] SP [id number] Medicaid Medigap Part B [id number] 2.16.840.1.843284.3.227.99.4595.116 04.0 Self [id number] [employer] [id number] SP [id number] Medicare Upstate/[facility] Medicare Primary [id number] 2.16.840.1.054303.3.227.99.8646.8206.0 Self 3 [id number] Medicaid Medigap Part B [id number] 2.16.840.1.894558.3.227.99.4595.116 04.0 Self [id number] First [employer] [place] Medigap Part B [id number] Self Medicaid Medigap Part B [id number] 2.16.840.1.423579.3.227.99.4595.116 04.0 Self [id number] Medicaid Medigap Part B [id number] 2.16.840.1.496511.3.227.99.4595.116 04.0 Self [id number] Medicare [facility] Medigap Part B [id number] 2.16.840.1.682509.3.227.99.991.81033.0 Self 3 [id number] MEDICAID M [id number] S [id number] Medicaid Medigap Part B [id number] 2.16.840.1.542620.3.227.99.4595.116 04.0 Self [id number] Medicare [facility] Medicare Primary [id number] Self Medicaid Medigap Part B [id number] Self [id number] Medicaid Medigap Part B [id number] Self [id number] Medicare Dme Supplies Medigap Part B [id number] 2.16840.1.107900.3.227.99.991.10660.0 Self 3 [id number] Medicare [place]/[facility] Medicare Primary [id number] 2.16.840.1.183046.3.227.99.8646.8206.0 Self 3 [id number] MEDICARE [id number] SP [id number] D MEDICARE PART A -O/P [id number] 18 [id number] Medicaid Medigap Part B [id number] 04.0 Self [id number] MEDICARE C [id number] S [id number] Medicare P UNAVAILABLE S UNAVAILA BLE Medicaid S [id number] S [id number] [employer] INS [place] [id number] S [id number] Medicaid Medigap Part B [id number] [id number] 04.0 Self [id number] Problems, Conditions, and Diagnoses Code Display Name Description Problem Type Effective Dates Data Source(s) R61072 [address] in jail as the place of occurrence of the external cause Unspecified place in jail as the place of occurrence of the external cause Diagnosis 06/14/2021 09:37:00 AM EDT [facility] [id number] Fall on same level from slip ping, tripping and stumbling with subsequent striking against other object, initial encounter Fall on same level from slipping, tripping and stumbling with subsequent striking against other object, initial encounter Diagnosis 06/14/2021 09:[facility] 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 (cu rrent) use of aspirin Diagnosis 06/14/2021 09:37:00 AM [facility] Z8673 Personal history of transien t ischemic attack (TIA), 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 (TIA), and cerebral infarction without residual deficits Diagnosis 06/14/2021 09:37:00 AM [facility] Z7902 longterm (current) use of antithromboti cs/antiplatelets longterm (current) use of antithrombotics/antiplatelets Diagnosis 021 09:37:00 AM [facility] E039 Hypothyroidism, unspecified Hypothyroidism, unspecifie d Diagnosis 06/14/2021 09:37:00 AM [facility] I10 Essential (primary) hypertension Essential (primary) h ypertension Diagnosis 06/14/2021 09:37:00 AM [facility] [id number] Contusion of scalp, initial encounter Co ntusion of scalp, initial encounter Diagnosis 06/14/2021 09:37:00 AM [facility] [id number] Unspecified injury of head, initial enco unter Unspecified injury of head, initial encounter Diagnosis 06/14/2021 09:37:00 AM [facility] [id number] Disease caused by 2019-nCoV Disease caused by 2019-nCo V Problem 11/04/2020 12:00:00 AM EST MARKUS ([facility]) Surgeries/Procedures Procedure Description Date Indications Data Source(s) OFFICE OUTPATIENT VISIT 25 MINUTES 08/19/2021 12:00:00 AM EDBenjamin MEDFRANKLIN ([facility], ) OFFICE OUTPATIENT VISIT 25 MINUTES 07/28/2021 12:00:00 AM EDT MARKUS ([facility]) OFFICE OUTPATIENT VISIT 15 MINUTES 07/20/2021 12:00:00 AM EDT MED[facility] ([facility], ) OFFICE OUTPATIENT VISIT 25 MINUTES 06/29/2021 12:00:00 AM EDT [facility] ([facility]) OFFICE OUTPATIENT VISIT 25 MINUTES 06/08/2021 12:00:00 AM EDT [facility] ([facility], ) Chronic Care MGMT 20 Mins Clinical Staff Time Per Calendar [facility] 06/03/2021 12:00:00 AM EDBenjamin APARICIO ([facility] ) OFFICE OUTPATIENT VISIT 25 MINUTES 05/25/2021 12:00:00 AM EDT [facility] ([facility]) Bone Mineral Density Test 05/21/2021 12:00:00 AM EDT [facility] ([facility]) Chronic Care MGMT 20 Mins Clinical Staff Time Per Calendar [facility] 05/06/2021 12:00:00 AM EDT [facility] ([facility] ) OFFICE OUTPATIENT VISIT 15 MINUTES 04/28/2021 12:00:00 AM EDT [facility] ([facility], ) OFFICE OUTPATIENT VISIT 25 MINUTES 04/20/2021 12:00:00 AM EDT [facility] ([facility]) Chronic Care MGMT 20 Mins Clinical Staff Time Per Calendar [facility] 04/01/2021 12:00:00 AM EDT [facility] ([facility] ) Chronic Care Management Services Ea Addl 20 Min 2020 12:00:00 AM EDT [facility] ([facility]) Chronic Care MGMT 20 Mins Clinical Staff Time Per Calendar [facility] 02/23/2021 12:00:00 AM EDT [facility] ([facility] ) OFFICE OUTPATIENT VISIT 25 MINUTES 01/22/2021 12:00:00 AM EDT [facility] ([facility]) OFFICE OUTPATIENT VISIT 25 MINUTES 01/01/2021 12:00:00 AM EST [facility] ([facility]) OFFICE OUTPATIENT VISIT 25 MINUTES 12/09/2020 12:00:00 AM EST [facility] ([facility]) Chronic Care Management Services Ea Addl 20 Min 2020 12:00:00 AM EST [facility] ([facility]) Chronic Care MGMT 20 Mins Clinical Staff Time Per Calendar [facility] 11/20/2020 12:00:00 AM EST [facility] ([facility] ) Rea Cre SRV W/I 7 Days Of DC, Comm W/I 2 Dys Med Rec 11/19/2020 12:00:00 AM EST [facility] ([facility] ) Rea Cre SRV W/I 7 Days Of DC, Comm W/I 2 Dys Med Rec 11/10/2020 12:00:00 AM EST [facility] ([facility] ) OFFICE OUTPATIENT VISIT 15 MINUTES 11/10/2020 12:00:00 AM EST [facility] ([facility], ) ELECTROENCEPHALOGRAM W/REC AWAKE&ASLEEP 08/18/2020 12: 00:00 AM EDT [facility] ([facility], ) ELECTROENCEPHALOGRAM W/REC AWAKE&ASLEEP 08/18/2020 12: 00:00 AM EDT [facility] ([facility], ) Needle electromyography, each extremity, with related paraspinal areas, when performed, done with nerve conduction, amplitude and latency/velocity study; complete, five or more muscles studied, innervated by three or more nerves or four or more spinal levels (list separately in addition to the code for primary procedure). 07/23/2020 12:00:00 AM EDT MEDEN T ([facility], ) 0[address]01 Nerve conduction studies 5-6 studies NEW 201207/23/2020 12:00:00 AM EDT [facility] ([facility], ) Magnetic Resonance Angiogtaphy Head W/O Contrast Material(S) 07/18/2020 12:00:00 AM EDT [facility] ([facility], ) Magnetic Resonance Angiogtaphy Head W/O Contrast Material(S) 07/18/2020 12:00:00 AM EDT [facility] ([facility], ) Magnetic Resonance Angiography Neck W/O Contrast Materials 07/18/2020 12:00:00 AM EDT [facility] ([facility], ) Magnetic Resonance Angiography Neck W/O Contrast Materials 07/18/2020 12:00:00 AM EDT [facility] ([facility], ) MRI BRAIN BRAIN STEM W/O CONTRAST MATERIAL 07/18/2020 12:00:00 AM EDT [facility] ([facility], ) MRI BRAIN BRAIN STEM W/O CONTRAST MATERIAL 07/18/2020 12:00:00 AM EDT [facility] ([facility], ) MRI SPINAL CANAL LUMBAR W/O CONTRAST MATERIAL 07/18/20 20 12:00:00 AM EDT [facility] ([facility], ) MRI SPINAL CANAL LUMBAR W/O CONTRAST MATERIAL 07/18/20 20 12:00:00 AM EDT [facility] ([facility], ) TSTG ANS FUNCJ CARDIOVAGAL INNERVAJ PARASYMP 0 12:00:00 AM EDT [facility] ([facility], ) TSTG ANS FUNCJ CARDIOVAGAL INNERVAJ PARASYMP 0 12:00:00 AM EDT [facility] ([facility], ) TESTING AUTONOMIC NERVOUS SYSTEM FUNCTION 07/09/2020 1 2:00:00 AM EDT [facility] ([facility]) TESTING AUTONOMIC NERVOUS SYSTEM FUNCTION 07/09/2020 1 2:00:00 AM EDT [facility] ([facility], ) NON-INVASIVE PHYSIOLOGIC STUDY EXTREMITY 3 LEVLS 07/09 12:00:00 AM EDT [facility] ([facility]) Results ID Date Data Source [id number] 07/28/2021 02:07:00 PM EDT [facility] ([facility]) Name Value Range Interpretation Code Description Data Maggi rce(s) Supporting Document(s) Glucose [Mass/volume] in Serum or Plasma 115 mg/dL 74-99 [facility] ([facility]) 100-125 mg/dL PRE-DIABETES/FASTING >126 mg/dL DIABETES/FASTING Urea nitrogen [Mass/volume] in Serum or Plasma 20 mg/dL 7-18 [facility] ([facility]) Sodium [Moles/volume] in Serum or Plasma 137 meq/L 136-145 [facility] ([facility]) Creatinine 1.0 mg/dL 0.6-1.3 [facility] ([facility]) Potassium [Moles/volume] in Serum or Plasma 4.5 meq/L 3.5-5.1 [facility] ([facility]) Carbon dioxide, total [Moles/volume] in Serum or Plasma 30 meq/L 21 -32 [facility] ([facility]) Chloride [Moles/volume] in Serum or Plasma 102 meq/L 98-107 [facility] ([facility]) Glomerular filtration rate/1.73 sq M pre dicted among blacks [Volume Rate/Area] in Serum or Plasma by Creatinine-based formula (MDRD) Laboratory test result [facility] <content>CHRONIC KIDNEY DISEASE STAGING PER NKF</content>
<content></content>
<content>STAGE I & II GFR >= 60 NORMAL TO MILDLY DECREASED</content>
<content>STAGE III GFR 30-59 MODERATELY DECREASED</content>
<content>STAGE IV GFR 15-29 SEVERELY DECREASED</content>
<content>STAGE V GFR <15 VERY LITTLE GFR LEFT</content>
<content>ESRD GFR <15 ON SUPERVISOR JOINERS</content>
<content></content> Calcium [Mass/volume] in Serum or Plasma 9.6 mg/dL 8.5-10.1 [facility] ([facility]) Glomerular filtration rate/1.73 sq M pre dicted among non-blacks [Volume Rate/Area] in Serum or Plasma by Creatinine-based formula (MDRD) 53 mL/min [facility]) ID Date Data Source [id number] 07/28/2021 02:07:00 PM EDT [facility] ([facility]) Name Value Range Interpretation Code Description Data Maggi rce(s) Supporting Document(s) Leukocytes [#/volume] in Blood by Automated count 5.0 x10*3/UL 4.1-10 .9 [facility] ([facility]) Erythrocytes [#/volume] in Blood by Automated count 3.88 x10*6/UL 4.2 0-6.30 [facility] ([facility]) NOTE: RESULT VERIFIED. Hemoglobin [Mass/volume] in Blood 12.7 g/dL 12.0-18.0 [facility] MCV 94.3 fL 80.0-97.0 [facility]) Hematocrit [Volume Fraction] of Blood by Automated count 36.6 % 3 7.0-51.0 [facility] ([facility]) MCH 32.7 pg 26.0-32.0 [facility] ([facility]) Erythrocyte distribution width [Ratio] by Automated count 13.7 % 11.6-13.7 [facility] ([facility]) MCHC 34.7 g/dL 31.0-38.0 [facility]) Platelets [#/volume] in Blood by Automated count 303 x10*3/UL 140-440 [facility] ([facility]) MPV 7.5 FL 7.8-11.0 [facility]) Lymph % 36.7 % 10.0-58.5 [facility] Mid % 7.4 % 1.7-9.3 [facility]) Neut % 55.9 % 37.0-92.0 [facility] Mid # 0.4 x10*3/UL 0.1-0.6 [facility] ([facility]) Lymph # 1.8 x10*3/UL 0.6-4.1 [facility] ([facility]) Neut # 2.8 x10*3/UL 2.0-7.8 [facility] ([facility]) ID Date Data Source [id number] 06/29/2021 10:11:00 AM EDT [facility] ([facility]) Name Value Range Interpretation Code Description Data Maggi rce(s) Supporting Document(s) Thyrotropin [Units/volume] in Serum or Plasma by Detec tion limit <= 0.05 mIU/L 3.24 uIU/mL 0.36-3.74 [facility] ([facility] ) ID Date Data Source [id number] 06/29/2021 10:11:00 AM EDT [facility] ([facility]) Name Value Range Interpretation Code Description Data Maggi rce(s) Supporting Document(s) Urea nitrogen [Mass/volume] in Serum or Plasma 18 mg/dL 7-18 [facility] ([facility]) Glucose [Mass/volume] in Serum or Plasma 88 mg/dL 74-99 [facility] ([facility]) 100-125 mg/dL PRE-DIABETES/FASTING >126 mg/dL DIABETES/FASTING Creatinine 0.9 mg/dL 0.6-1.3 [facility] ([facility]) Sodium [Moles/volume] in Serum or Plasma 139 meq/L 136-145 [facility] ([facility]) Potassium [Moles/volume] in Serum or Plasma 4.3 meq/L 3.5-5.1 [facility] ([facility]) Chloride [Moles/volume] in Serum or Plasma 102 meq/L 98-107 [facility] ([facility]) Carbon dioxide, total [Moles/volume] in Serum or Plasma 32 meq/L 21 -32 [facility] ([facility]) Glomerular filtration rate/1.73 sq M pre dicted among non-blacks [Volume Rate/Area] in Serum or Plasma by Creatinine-based formula (MDRD) 60 mL/min [facility] ([facility]) Calcium [Mass/volume] in Serum or Plasma 9.7 mg/dL 8.5-10.1 [facility] Glomerular filtration rate/1.73 sq M pre dicted among blacks [Volume Rate/Area] in Serum or Plasma by Creatinine-based formula (MDRD) Laboratory test result [facility] ([facility]) <content>CHRONIC KIDNEY DISEASE STAGING PER NKF</content>
<content></content>
<content>STAGE I & II GFR >= 60 NORMAL TO MILDLY DECREASED</content>
<content>STAGE III GFR 30-59 MODERATELY DECREASED</content>
<content>STAGE IV GFR 15-29 SEVERELY DECREASED</content>
<content>STAGE V GFR <15 VERY LITTLE GFR LEFT</content>
<content>ESRD GFR <15 ON SUPERVISOR JOINERS</content>
<content></content> ID Date Data Source [id number] 06/29/2021 10:11:00 AM EDT [facility] ([facility]) Name Value Range Interpretation Code Description Data Maggi rce(s) Supporting Document(s) Magnesium 2.1 mg/dL 1.8-2.4 [facility]) ID Date Data Source [id number] 06/29/2021 10:11:00 AM EDT [facility] ([facility]) Name Value Range Interpretation Code Description Data Maggi rce(s) Supporting Document(s) Hemoglobin [Mass/volume] in Blood 12.5 g/dL 12.0-18.0 [facility] ([facility]) Leukocytes [#/volume] in Blood by Automated count 4.6 x10*3/UL 4.1-10 .9 [facility] ([facility]) Erythrocytes [#/volume] in Blood by Automated count 3.86 x10*6/UL 4.2 0-6.30 [facility] ([facility]) MCV 94.8 fL 80.0-97.0 [facility]) Hematocrit [Volume Fraction] of Blood by Automated count 36.6 % 3 7.0-51.0 [facility] ([facility]) MCH 32.6 pg 26.0-32.0 [facility]) MCHC 34.3 g/dL 31.0-38.0 [facility]) Erythrocyte distribution width [Ratio] by Automated count 14.0 % 11.6-13.7 [facility] ([facility]) Platelets [#/volume] in Blood by Automated count 317 x10*3/UL 140-440 [facility] ([facility]) Mid % 5.8 % 1.7-9.3 [facility] Lymph % 22.0 % 10.0-58.5 [facility]) MPV 7.7 FL 7.8-11.0 [facility]) Lymph # 1.0 x10*3/UL 0.6-4.1 [facility] ([facility]) Neut % 72.2 % 37.0-92.0 [facility] Mid # 0.3 x10*3/UL 0.1-0.6 [facility] ([facility]) Neut # 3.3 x10*3/UL 2.0-7.8 [facility] ([facility]) ID Date Data Source [id number] 06/14/2021 03:05:00 PM EDT [facility] [address] [place] [address] PHONE: [phone] FAX: [phone] Name .................. : LEDY Fry Acct Number.................. : [id number] ROOM. ................. : TR-08 MR Number ................... : [id number] Stay type ............. : E/R Discharge Date......... ... : 06/14/21 Admit Date ......... : 06/14/21 Admit Phys .................... : TERRANCE Fry Date of ....... : 1940 Family Phys ................... : NON STAFF Phone .................. : [phone] Age ................................ : 80 Film# .................. .:[id number] Sex ................................. : F Unsigned transcriptions are preliminary reports and do not represent a medical or legal document CT HEAD W/O CONTRAST [id number] COMPLETE:06/14/21 09:45 51979 R mariposa(s): Head Injury CT BRAIN WITHOUT [...] No skull fracture. Page 1 of [address] [address] PHONE: [phone] FAX: [phone] Name .................. : LEDY Fry Acct Number.................. : [id number] ROOM. ................. : TR- MR Number ................... : [id number] Stay type ............. : E/R Discharge Date......... ... : 06/14/21 Admit Date ......... : 06/14/21 Admit Phys .................... : TERRANCE Fry Date of ....... : 1940 Family Phys ................... : NON STAFF Phone .................. : [phone] Age ................................ : 80 Film# .................. .:[id number] Sex ................................. : F Unsigned transcriptions are preliminary reports and do not represent a medical or legal document CT HEAD W/O CONTRAST [id number] COMPLETE:06/14/21 09:45 [id number] Reason(s): Head Injury Electronically Reviewed and Signed By Kyle Mckeon MD , 06/14/21 15:05, ENMA Transcribe Initials: JUAN , Transcribe Date: 06/14/21 13:49, Dictation Date: Copy for: EMERGENCY DEPT via modem Copy for: 710 MED REC DISCHARGED Page 2 of 2 Name Value Range Interpretation Code Description Data Maggi rce(s) Supporting Document(s) ID Date Data Source [id number] 06/14/2021 09:37:00 AM EDT [facility] 1 OrderSheet [facility] Emergency Department [address] [place] [address] Phone #: ext- [phone] 06/14/2021 09:34 Patient: [...] Entered Acknowledged InitialedAcetaminophen PO 09:45 06/14/2021 10:13 Fqvpp106 mg (NOW x1) Moises Rose ; Boaz RNGENERAL ORDERSOrder Description Priority Entered Acknowledged Initialed[Electronically signed by Moises Rose (14:30 06/14/2021)][Electronically signed by Bentley Sandra RN (16:37 06/14/2021)][Electronically locked by Bentley Sandra RN (16:37 06/14/2021)] Name Value Range Interpretation Code Description Data Maggi rce(s) Supporting Document(s) ID Date Data Source [id number] 06/14/2021 09:37:00 AM EDT [facility] 1 Medication Reconciliation Report [facility] Emergency Department [address] [place] [address] Phone #: ext- [phone] 06/14/2021 09:34 Patient: [...] source(s) of the original Home Medication information:patient's jail recordThe following Medications were given to the patient in the Emergency Department: 2 Medication Reconciliation Report [facility] Emergency Department [address] [place] [address] Phone #: ext- [phone] 06/14/2021 09:34 Patient: ROYA VILLAFANA Sex: F : 1940 Age: 80yAcetaminophen [PO] PO 650 mg, administered: 10:13 06/14/2021The following Medications were prescribed to the patient:None. Name Value Range Interpretation Code Description Data Maggi rce(s) Supporting Document(s) ID Date Data Source [id number] 06/14/2021 09:37:00 AM EDT [facility] 1 Medication Administration Record [facility] Emergency Department [address] [place] [address] Phone #: ext- [phone] 06/14/2021 09:34 Patient: ROYA VILLAFANA Sex: F : 1940 Age: 80yWeight: 75.2 kgHeight/Length: 63 inBMI: 29.4ALLERGIES: No Known Drug Allergy Date/Time Medication Administered Medication OrderedGiven ACETAMINOPHEN [PO] Acetaminophen PO 650 mg (NOW10:13 06/14/2021 Dose: 650 mg Tablets PO x1)Bentley Sandra RN Name Value Range Interpretation Code Description Data Maggi rce(s) Supporting Document(s) ID Date Data Source [id number] 06/14/2021 09:37:00 AM EDT [facility] 1 General Instructions [facility] Emergency Department [address] [place] [address] Phone #: [phone] ext- [phone] 06/14/2021 09:34 Patient: ROYA VILLAFANA Sex: F [...] greenish-yellow, then to yellow-brown. 2 General Instructions [facility] Emergency Department [address] [place] [address] Phone #: ext- [phone] 06/14/2021 09:34 Patient: [...] eye Frequent br uising for unknown reasons [id number] [employer]. [address] [place] [address]. All rights reserved. This information is not [...] the symptoms listed below 3 General Instructions [facility] Emergency Department [address] [place] [address] Phone #: ext- [phone] 06/14/2021 09:34 Patient: [...] doctor tells you to. 4 General Instructions [facility] Emergency Department [address] [place] [address] Phone #: ext- [phone] 06/14/2021 09:34 Patient: [...] of the body Seizures 5 General Instructions [facility] Emergency Department [address] [place] [address] Phone #: ext- [phone] 06/14/2021 09:34 Patient: ROYA VILLAFANA Sex: F : 1940 Age: 80y [id number] [employer] [place] [address]. All rights reserved. This information is not intended as asubstitute for professional medical care. Always follow your healthcare professional's instructions. You have been given the following additional information: Soft Tissue Contusion Scalp Contusion, with Sleep Monitoring(Electronically signed by Moises Rose 06/14/2021 14:30) Name Value Range Interpretation Code Description Data Maggi rce(s) Supporting Document(s) ID Date Data Source [id number] 06/14/2021 09:37:00 AM EDT [facility] 1 Clinical Report - Nurses [facility] Emergency Department [address] [place] [address] Phone #: ext- [phone] 06/14/2021 09:34 Patient: ROYA VILLAFANA Sex: F : 1940 Age: 80yTRIAGEArrived by EMS. Historian: EMS and patient. ( [facility] amb [facility] with c/o fall, slippedon water and fell hitting head, only c/o slight headache, no LOC).Triage time: 09:36 06/14/2021. Acuity: LEVEL 3.Chief Complaint: FALL. Slipped; fell onto tile surface while walking. Landed on head.(slipped on water and hit back of head).Alert. No acute distress.Location of injuries: head. This occurred about one hour ago. Occurred [facility] a jail. 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 SEPSIS SCREEN NEGATIVE. [...] Wu RN. 2 Clinical Report - Nurses [facility] Emergency Department [address] [place] [address] Phone #: ext- [phone] 06/14/2021 09:34 Patient: ROYA VILLAFANA Sex: F : 1940 Age: 80yAllergiesNo Known Drug Allergy. --09:40 06/14/21 Maira Wu RN.PROBLEMS:Depression.Anxiety Reaction.Obstructive Sleep Apnea.Fall.TIA - Transient Ischemic Attack.Hypothyroidism.Hypertension.Gastroesophageal Reflux Disease.Back Pain.Arthritis. --09:50 06/14/21 Maira Wu RN.Medication/allergy information source: the patient's jail record. --09:52 8/8/21 Maira Wu RN.ADDITIONAL SURGERIES:Appendectomy.Back [...] mobility and 3 Clinical Report - Nurses [facility] Emergency Department [address] [place] [address] Phone #: ext- [phone] 06/14/2021 09:34 Patient: [...] Interventions Advanced care plan. Patient has a iq-gvd-palxppqehsi (DNR). --09:52 06/14/21 Maira Wu RN.PHYSICAL ASSESSMENTTo [...] RR: 16. O2 saturation: 92%. --10:11 06/14/[address] [facility] Tech, [facility] Tech 10:13 06/14/2021 Acetaminophen PO Tablets 650 mg given. Allergies verified and confirmed 5 rights. Information reviewed with patient. --10:13 06/14/21 Bentley Sandra RN Patient transported to CT by stretcher with mask and electroencephalograph technician. (1040). --10:52 06/14/21 Bentley Sandra RN Patient returned from CT by stretcher with mask and electroencephalograph technician. (1055). --10:57 06/14/21 Bentley Sandra RN.DISPOSITION [...] instructions provided 4 Clinical Report - Nurses [facility] Emergency Department [address] [place] [address] Phone #: ext- [phone] 06/14/2021 09:34 Patient: ROYA VILLAFANA Sex: F : 1940 Age: 80y in [place]. The patient was discharged by the physician. She was discharged to the jail. She left via ambulance and on a stretcher. --11:51 06/14/21 Maira Wu RN Departure time: 13:00 06/14/2021. --13:06 06/14/21 Bentley Sandra RN.Locked/Released at 06/14/2021 16:37 by Bentley Sandra RN Name Value Range Interpretation Code Description Data Maggi rce(s) Supporting Document(s) ID Date Data Source [id number] 06/14/2021 09:37:00 AM EDT [facility] 1 Clinical Report - Physicians/Mid Levels [facility] Emergency Department [address] [place] [address] Phone #: ext- [phone] 06/14/2021 09:34 Patient: ROYA VILLAFANA Sex: F : 1940 Age: 80y Time Seen: 09:46 06/14/2021. Arrived- By ambulance. Historian- patient.HISTORY OF PRESENT ILLNESS Chief Complaint: INJURY TO HEAD. Location of injuries- head. The injury occurred just prior to arrival. Fell: This was not an incised wound. Occurred at a jail. ( Slipped on wet floor while walking [...] surgery. 2 Clinical Report - Physicians/Mid Levels [facility] Emergency Department [address] [place] [address] Phone #: ext- [phone] 06/14/2021 09:34 Patient: [...] EKG 3 Clinical Report - Physicians/Mid Levels [facility] Emergency Department [address] [place] [address] Phone #: ext- [phone] 06/14/2021 09:34 Patient: ROYA VILLAFANA Sex: F : 1940 Age: 80yCT Head: No acute changes. No hemorrhage and no intracranial mass. There is atrophy is present.(old lacunar infarct.). The study was interpreted by the radiologist.Laboratory Tests:CT Head W/O Cont: (DEEPA: 06/14/2021 09:45) ( MsgRcvd 06/14/2021 13:50) In Progress Exam [place] [address] PHONE: [phone] FAX: [phone] Name .................. : LEDY Fry Acct Number.................. : [id number] ROOM. ................. : TR- 08 MR Number ................... : [id number] Stay type ............. : E/R Discharge Date......... ... : 06/14/21 Admit Date ......... : 06/14/21 Admit Phys .................... : TERRANCE Fry Date of ....... : 1940 Family Phys ................... : NON STAFF Phone .................. : [phone] Age ................................ : 80 Film# .................. .:[id number] Sex ................................. : F Unsigned transcriptions are preliminary reports and do not represent a medical or legal document CT HEAD W/O CONTRAST [id number] COMPLETE:06/14/21 09:45 46094 Reason(s): Head Injury CT BRAIN WITHOUT IV [...] 1 4 Clinical Report - Physicians/Mid Levels [facility] Emergency Department [address] [place] [address] Phone #: ext- [phone] 06/14/2021 09:34 Patient: ROYA VILLAFANA Sex: F : 1940 Age: 80y [address] [place] [address] PHONE: [phone] FAX: [phone] Name .................. : LEDY Fry Acct Number.................. : [id number] ROOM. ................. : TR-08 MR Number ................... : [id number] Stay type ............. : E/R Discharge Date......... ... : 06/14/21 Admit Date ......... : 06/14/21 Admit Phys .................... : TERRANCE Fry Date of ....... : 1940 Family Phys ................... : NON STAFF Phone .................. : [phone] Age ................................ : 80 Film# .................. .:[id number] Sex ................................. : F Unsigned transcriptions are preliminary reports and do not represent a medical or legal document CT HEAD W/O CONTRAST [id number] COMPLETE:06/14/21 09:45 80079 Reason(s): Head Injury Electronically Reviewed and Signed [...] next 5 Clinical Report - Physicians/Mid Levels [facility] Emergency Department [address] [place] [address] Phone #: ext- [phone] 06/14/2021 09:34 Patient: [...] rce(s) Supporting Document(s) ID Date Data Source [id number] 04/20/2021 11:50:00 AM EDT [facility] ([facility]) Name Value Range Interpretation Code Description Data Maggi rce(s) Supporting Document(s) Calcidiol [Mass/volume] in Serum or Plasma 41.9 ng/mL 24.0-80.0 [facility] ([facility]) This test was performed using [employer] I P Vitamin D immunoassay kit. Values obtained with different assay methods should not be used interchangeably. ID Date Data Source [id number] 04/20/2021 11:50:00 AM EDT [facility] ([facility]) Name Value Range Interpretation Code Description Data Maggi rce(s) Supporting Document(s) Thyrotropin [Units/volume] in Serum or Plasma by Detec tion limit <= 0.05 mIU/L 1.95 uIU/mL 0.36-3.74 [facility] ([facility] ) ID Date Data Source [id number] 04/20/2021 11:50:00 AM EDT [facility] Name Value Range Interpretation Code Description Data Maggi rce(s) Supporting Document(s) Cholesterol [Mass/volume] in Serum or Plasma 169 mg/dL 131-200 [facility] ([facility]) Triglyceride [Mass/volume] in Serum or Plasma 97 mg/dL 30-150 [facility] ([facility]) Cholesterol in LDL [Mass/volume] in Serum or Plasma by calcu lation 84 CALC 50-159 [facility] ([facility]) Cholesterol in HDL [Mass/volume] in Serum or Plasma 66 mg/dL 35-60 [facility] ([facility]) ID Date Data Source [id number] 04/20/2021 11:50:00 AM EDT [facility] ([facility]) Name Value Range Interpretation Code Description Data Maggi rce(s) Supporting Document(s) Glucose [Mass/volume] in Serum or Plasma 90 mg/dL 74-99 [facility] ([facility]) 100-125 mg/dL PRE-DIABETES/FASTING >126 mg/dL DIABETES/FASTING Urea nitrogen [Mass/volume] in Serum or Plasma 22 mg/dL 7-18 [facility] ([facility]) Creatinine 1.0 mg/dL 0.6-1.3 [facility] ([facility]) Sodium [Moles/volume] in Serum or Plasma 137 meq/L 136-145 [facility] ([facility]) Potassium [Moles/volume] in Serum or Plasma 4.5 meq/L 3.5-5.1 [facility] ([facility]) Chloride [Moles/volume] in Serum or Plasma 100 meq/L 98-107 [facility] ([facility]) Carbon dioxide, total [Moles/volume] in Serum or Plasma 30 meq/L 21 -32 [facility] ([facility]) Total Bilirubin 0.5 mg/dL 0.2-1.0 [facility] ([facility]) Calcium [Mass/volume] in Serum or Plasma 9.8 mg/dL 8.5-10.1 [facility] ([facility]) Alkaline phosphatase isoenzyme [Units/volume] in Serum or Pl asma 99 mg/dL 46-116 [facility] ([facility]) Alanine aminotransferase [Enzymatic activity/volume] in Seru m or Plasma 25 U/L 12-78 [facility] ([facility]) Aspartate aminotransferase [Enzymatic activity/volume] in Serum or Plasma 25 U/L 15-37 [facility] Albumin [Mass/volume] in Serum or Plasma 3.9 g/dL 3.4-5.0 [facility] ([facility]) Proteinase 3 Ab [Units/volume] in Serum 8.0 g/dL 6.4-8.2 [facility] ([facility]) A/G Ratio 0.95 CALC 1.00-1.90 [facility]) Glomerular filtration rate/1.73 sq M pre dicted among blacks [Volume Rate/Area] in Serum or Plasma by Creatinine-based formula (MDRD) Laboratory test result [facility] ([facility]) <content>CHRONIC KIDNEY DISEASE STAGING PER NKF</content>
<content></content>
<content>STAGE I & II GFR >= 60 NORMAL TO MILDLY DECREASED</content>
<content>STAGE III GFR 30-59 MODERATELY DECREASED</content>
<content>STAGE IV GFR 15-29 SEVERELY DECREASED</content>
<content>STAGE V GFR <15 VERY LITTLE GFR LEFT</content>
<content>ESRD GFR <15 ON SUPERVISOR JOINERS</content>
<content></content> Glomerular filtration rate/1.73 sq M pre dicted among non-blacks [Volume Rate/Area] in Serum or Plasma by Creatinine-based formula (MDRD) 53 mL/min [facility] ID Date Data Source [id number] 04/20/2021 11:50:00 AM EDT [facility] Name Value Range Interpretation Code Description Data Maggi rce(s) Supporting Document(s) Erythrocytes [#/volume] in Blood by Automated count 3.89 x10*6/UL 4.2 0-6.30 [facility] ([facility]) Leukocytes [#/volume] in Blood by Automated count 5.4 x10*3/UL 4.1-10 .9 [facility] Hemoglobin [Mass/volume] in Blood 12.5 g/dL 12.0-18.0 [facility] ([facility]) MCV 94.0 fL 80.0-97.0 [facility] ([facility]) Hematocrit [Volume Fraction] of Blood by Automated count 36.5 % 3 7.0-51.0 [facility] ([facility]) MCH 32.2 pg 26.0-32.0 [facility] ([facility]) Platelets [#/volume] in Blood by Automated count 336 x10*3/UL 140-440 [facility] Erythrocyte distribution width [Ratio] by Automated count 14.6 % 11.6-13.7 [facility] ([facility]) MCHC 34.2 g/dL 31.0-38.0 [facility] ([facility]) Mid % 8.0 % 1.7-9.3 [facility] ([facility]) Lymph % 30.6 % 10.0-58.5 [facility] ([facility]) MPV 7.8 FL 7.8-11.0 [facility] ([facility]) Mid # 0.5 x10*3/UL 0.1-0.6 [facility] ([facility]) Lymph # 1.6 x10*3/UL 0.6-4.1 [facility] ([facility]) Neut % 61.4 % 37.0-92.0 [facility] ([facility]) Neut # 3.3 x10*3/UL 2.0-7.8 [facility] ([facility]) ID Date Data Source [id number] 03/01/2021 12:00:00 AM EDT [facility] Name Value Range Interpretation Code Description Data Maggi rce(s) Supporting Document(s) SARS-CoV2 Rapid Antigen Negative [facility] This lab was ordered by [facility] and reported by [facility]. ID Date Data Source [id number] 01/22/2021 01:55:00 PM EDT [facility] ([facility]) Name Value Range Interpretation Code Description Data Maggi rce(s) Supporting Document(s) Hemoglobin [Mass/volume] in Blood 12.3 g/dL 12.0-18.0 [facility] ([facility]) Erythrocytes [#/volume] in Blood by Automated count 3.77 x10*6/UL 4.2 0-6.30 [facility] ([facility]) Leukocytes [#/volume] in Blood by Automated count 4.9 x10*3/UL 4.1-10 .9 [facility] MCV 94.9 fL 80.0-97.0 [facility]) Hematocrit [Volume Fraction] of Blood by Automated count 35.8 % 3 7.0-51.0 [facility] ([facility]) MCH 32.6 pg 26.0-32.0 [facility]) MCHC 34.4 g/dL 31.0-38.0 [facility] ([facility]) Platelets [#/volume] in Blood by Automated count 287 x10*3/UL 140-440 [facility] Erythrocyte distribution width [Ratio] by Automated count 14.0 % 11.6-13.7 [facility] ([facility]) Mid % 7.8 % 1.7-9.3 [facility]) MPV 8.1 FL 7.8-11.0 [facility] ([facility]) Lymph % 33.2 % 10.0-58.5 [facility] Neut % 59.0 % 37.0-92.0 [facility] ([facility]) Lymph # 1.6 x10*3/UL 0.6-4.1 [facility] ([facility]) Neut # 2.9 x10*3/UL 2.0-7.8 [facility] ([facility]) Mid # 0.4 x10*3/UL 0.1-0.6 [facility] ([facility]) ID Date Data Source [id number] 12/25/2020 09:51:00 PM EST [facility] ([facility]) Name Value Range Interpretation Code Description Data Maggi rce(s) Supporting Document(s) AB Screen (Indirect [place])Vis Laboratory test result [facility] ([facility]) Blood Type Laboratory test result [facility] ([facility]) ID Date Data Source [id number] 12/25/2020 09:51:00 PM EST [facility] ([facility]) Name Value Range Interpretation Code Description Data Maggi rce(s) Supporting Document(s) Glucose, Fasting 119 mg/dL 70-100 [facility] ([facility]) Blood Urea Nitrogen 19 mg/dL 7-18 [facility] ([facility]) Creatinine For GFR 0.90 mg/dL 0.55-1.30 [facility] ([facility]) Sodium Level 137 meq/L 136-145 [facility] ([facility]) Glomerular Filtration Rate Laboratory test result [facility] ([facility]) <content>Units are mL/min/1.73 m2</content>
<content></content>
<content>Chronic Kidney Disease Staging per NKF:</content>
<content></content>
<content>Stage I & II GFR >=60 Normal to Mildly Decreased</content>
<content>Stage III GFR 30- 59 Moderately Decreased</content>
<content>Stage IV GFR 15-29 Severely Decreased</content>
<content>Stage V GFR <15 Very Little GFR Left</content>
<content>ESRD GFR <15 on SUPERVISOR JOINERS</content>
<content></content> Potassium Serum 4.1 meq/L 3.5-5.1 [facility] ([facility]) Chloride Level 103 meq/L 98-107 [facility] ([facility]) Anion Gap 9 meq/L 8-16 [facility]) Calcium Level 9.3 mg/dL 8.8-10.2 [facility] ([facility]) Carbon Dioxide Level 25 meq/L 21-32 [facility] ([facility]) ID Date Data Source [id number] 12/25/2020 09:51:00 PM EST [facility] ([facility]) Name Value Range Interpretation Code Description Data Maggi rce(s) Supporting Document(s) White Blood Count 5.5 10 4.0-10.0 [facility] ([facility]) Red Blood Count 3.67 10 4.00-5.40 [facility] ([facility]) Hemoglobin 11.8 g/dL 12.0-15.5 [facility] Mean Corpuscular Volume 98.1 fl 80.0-96.0 [facility] ([facility]) Hematocrit 36.0 % 36.0-47.0 [facility] ([facility]) Mean Corpuscular HGB Conc 32.8 g/dL 32.0-36.5 [facility] ([facility]) Mean Corpuscular Hemoglobin 32.2 pg 27.0-33.0 [facility] Red Cell Distribution Width 13.5 % 11.5-14.5 [facility] Platelet Count, Automated 324 10 150-450 [facility] Nucleated Red Blood Cell % 0.0 % 0-0 [facility] ([facility]) ID Date Data Source [id number] 12/22/2020 09:00:00 AM EST [facility] Name Value Range Interpretation Code Description Data Maggi rce(s) Supporting Document(s) SARS coronavirus 2 RNA Not Detected [facility] [place] This lab was ordered by [facility] and reported by [facility]. ID Date Data Source [id number] 12/15/2020 06:33:00 AM EST [facility] Name Value Range Interpretation Code Description Data Maggi rce(s) Supporting Document(s) SARS coronavirus 2 RNA Not Detected [facility] [place] This lab was ordered by [facility] and reported by [facility]. ID Date Data Source [id number] 12/09/2020 10:09:00 AM EST [facility] Name Value Range Interpretation Code Description Data Maggi rce(s) Supporting Document(s) Thyrotropin [Units/volume] in Serum or Plasma by Detec tion limit <= 0.05 mIU/L 2.16 uIU/mL 0.36-3.74 [facility] ([facility] ) ID Date Data Source [id number] 12/09/2020 10:09:00 AM EST [facility] ([facility]) Name Value Range Interpretation Code Description Data Maggi rce(s) Supporting Document(s) Glucose [Mass/volume] in Serum or Plasma 92 mg/dL 74-99 [facility] ([facility]) 100-125 mg/dL PRE-DIABETES/FASTING >126 mg/dL DIABETES/FASTING Creatinine 0.9 mg/dL 0.6-1.3 [facility] ([facility]) Urea nitrogen [Mass/volume] in Serum or Plasma 18 mg/dL 7-18 [facility] ([facility]) Chloride [Moles/volume] in Serum or Plasma 102 meq/L 98-107 [facility] ([facility]) Sodium [Moles/volume] in Serum or Plasma 140 meq/L 136-145 [facility] ([facility]) Potassium [Moles/volume] in Serum or Plasma 4.1 meq/L 3.5-5.1 [facility] ([facility]) Calcium [Mass/volume] in Serum or Plasma 9.5 mg/dL 8.5-10.1 [facility] ([facility]) Carbon dioxide, total [Moles/volume] in Serum or Plasma 27 meq/L 21 -32 [facility] ([facility]) Glomerular filtration rate/1.73 sq M pre dicted among non-blacks [Volume Rate/Area] in Serum or Plasma by Creatinine-based formula (MDRD) 60 mL/min [facility] Glomerular filtration rate/1.73 sq M pre dicted among blacks [Volume Rate/Area] in Serum or Plasma by Creatinine-based formula (MDRD) Laboratory test result [facility] <content>CHRONIC KIDNEY DISEASE STAGING PER NKF</content>
<content></content>
<content>STAGE I & II GFR >= 60 NORMAL TO MILDLY DECREASED</content>
<content>STAGE III GFR 30-59 MODERATELY DECREASED</content>
<content>STAGE IV GFR 15-29 SEVERELY DECREASED</content>
<content>STAGE V GFR <15 VERY LITTLE GFR LEFT</content>
<content>ESRD GFR <15 ON SUPERVISOR JOINERS</content>
<content></content> ID Date Data Source [id number] 12/09/2020 10:09:00 AM EST [facility] ([facility]) Name Value Range Interpretation Code Description Data Maggi rce(s) Supporting Document(s) Erythrocytes [#/volume] in Blood by Automated count 3.33 x10*6/UL 4.2 0-6.30 [facility] ([facility]) Leukocytes [#/volume] in Blood by Automated count 6.1 x10*3/UL 4.1-10 .9 [facility] ([facility]) Hematocrit [Volume Fraction] of Blood by Automated count 31.6 % 3 7.0-51.0 [facility] ([facility]) Hemoglobin [Mass/volume] in Blood 11.2 g/dL 12.0-18.0 [facility] ([facility]) MCV 95.0 fL 80.0-97.0 [facility]) MCH 33.8 pg 26.0-32.0 [facility]) MCHC 35.6 g/dL 31.0-38.0 [facility]) Platelets [#/volume] in Blood by Automated count 392 x10*3/UL 140-440 [facility] ([facility]) Erythrocyte distribution width [Ratio] by Automated count 14.0 % 11.6-13.7 [facility] ([facility]) Lymph % 27.4 % 10.0-58.5 [facility] ([facility]) MPV 7.1 FL 7.8-11.0 [facility] Mid % 6.1 % 1.7-9.3 [facility] Neut % 66.5 % 37.0-92.0 [facility] Lymph # 1.6 x10*3/UL 0.6-4.1 [facility] ([facility]) Mid # 0.5 x10*3/UL 0.1-0.6 [facility] ([facility]) Neut # 4.0 x10*3/UL 2.0-7.8 [facility] ([facility]) ID Date Data Source [id number] 12/08/2020 08:00:00 AM EST [facility] Name Value Range Interpretation Code Description Data Maggi rce(s) Supporting Document(s) SARS coronavirus 2 RNA Not Detected [facility] [place] This lab was ordered by [facility] and reported by [facility]. ID Date Data Source [id number] 12/01/2020 08:00:00 AM EST [facility] Name Value Range Interpretation Code Description Data Maggi rce(s) Supporting Document(s) SARS coronavirus 2 RNA Not Detected [facility] [place] This lab was ordered by [facility] and reported by [facility]. ID Date Data Source [id number] 11/24/2020 11:00:00 AM EST [facility] Name Value Range Interpretation Code Description Data Maggi rce(s) Supporting Document(s) SARS coronavirus 2 RNA Not Detected [facility] [place] This lab was ordered by [facility] and reported by [facility]. ID Date Data Source [id number] 11/17/2020 06:00:00 AM EST [facility] Name Value Range Interpretation Code Description Data Maggi rce(s) Supporting Document(s) SARS coronavirus 2 RNA Not Detected [facility] [place] This lab was ordered by [facility] and reported by [facility]. ID Date Data Source [id number] 11/13/2020 07:57:00 PM EST [facility] Name Value Range Interpretation Code Description Data Maggi rce(s) Supporting Document(s) SARS-CoV-2 (COVID 19) NEGATIVE - SARS-CoV-2 (COVID19) [facility] This lab was ordered by [facility] a nd reported by [facility]. ID Date Data Source [id number] 11/12/2020 06:58:00 PM EST [facility] ([facility]) Name Value Range Interpretation Code Description Data Magig rce(s) Supporting Document(s) Blood Type Laboratory test result [facility] ([facility]) AB Screen (Indirect Brionna)Vis Laboratory test result [facility]) ID Date Data Source [id number] 11/12/2020 06:58:00 PM EST [facility] ([facility]) Name Value Range Interpretation Code Description Data Maggi rce(s) Supporting Document(s) Blood Urea Nitrogen 15 mg/dL 7-18 [facility] ([facility]) Glucose, Fasting 123 mg/dL 70-100 [facility] ([facility]) Creatinine For GFR 0.88 mg/dL 0.55-1.30 [facility] ([facility]) Glomerular Filtration Rate Laboratory test result [facility] ([facility]) <content>Units are mL/min/1.73 m2</content>
<content></content>
<content>Chronic Kidney Disease Staging per NKF:</content>
<content></content>
<content>Stage I & II GFR >=60 Normal to Mildly Decreased</content>
<content>Stage III GFR 30- 59 Moderately Decreased</content>
<content>Stage IV GFR 15-29 Severely Decreased</content>
<content>Stage V GFR <15 Very Little GFR Left</content>
<content>ESRD GFR <15 on SUPERVISOR JOINERS</content>
<content></content> Sodium Level 137 meq/L 136-145 [facility] ([facility]) Potassium Serum 3.8 meq/L 3.5-5.1 [facility] ([facility]) Chloride Level 103 meq/L 98-107 [facility] ([facility]) Carbon Dioxide Level 29 meq/L 21-32 [facility] Anion Gap 5 meq/L 8-16 [facility]) Calcium Level 9.2 mg/dL 8.8-10.2 [facility] ([facility]) ID Date Data Source [id number] 11/12/2020 06:58:00 PM EST [facility] ([facility]) Name Value Range Interpretation Code Description Data Maggi rce(s) Supporting Document(s) White Blood Count 6.3 10 4.0-10.0 [facility] Red Blood Count 3.43 10 4.00-5.40 [facility] ([facility]) Hemoglobin 10.9 g/dL 12.0-15.5 [facility]) Mean Corpuscular Volume 97.7 fl 80.0-96.0 [facility] ([facility]) Hematocrit 33.5 % 36.0-47.0 [facility]) Mean Corpuscular HGB Conc 32.5 g/dL 32.0-36.5 MEDE NT ([facility]) Mean Corpuscular Hemoglobin 31.8 pg 27.0-33.0 ME DENT ([facility]) Red Cell Distribution Width 12.6 % 11.5-14.5 [facility] ([facility]) Platelet Count, Automated 405 10 150-450 MED[facility] NT ([facility]) Neutrophils % 49.0 % 36.0-66.0 [facility] ([facility]) Haines % 11.9 % 0.0-5.0 [facility]) Lymph % 32.3 % 24.0-44.0 [facility]) Baso % 0.8 % 0.0-1.0 [facility]) Eos % 5.7 % 0.0-3.0 [facility]) Immature Granulocyte % 0.3 % 0-3.0 [facility] ([facility]) Nucleated Red Blood Cell % 0.0 % 0-0 MED ENT ([facility]) Neutrophils # 3.1 10 1.5-8.5 [facility] ([facility]) Lymph # 2.0 10 1.5-5.0 [facility]) Haines # 0.8 10 0.0-0.8 [facility]) Eos # 0.4 10 0.0-0.5 [facility]) Baso # 0.1 10 0.0-0.2 [facility] ([facility]) ID Date Data Source [id number] 11/12/2020 09:12:00 AM EST [facility] ([facility]) Name Value Range Interpretation Code Description Data Maggi rce(s) Supporting Document(s) aPTT in Blood by Coagulation assay 34.8 s 24.2-38.5 [facility] ([facility]) ID Date Data Source [id number] 11/12/2020 09:12:00 AM EST [facility] ([facility]) Name Value Range Interpretation Code Description Data Maggi rce(s) Supporting Document(s) Inr 1.05 [facility] ([facility]) THERAPUTIC HUMAN INR VALUES INDICATIONS NORMAL RANGES PROPHYLAXIS/TREATMENT OF: VENOUS THROMBOSIS 2.0-3.0 PULMONARY EMBOLISM 2.0-3.0 PREVENTION OF SYSTEMIC EMBOLISM FROM: TISSUE HEART VALVES 2.0-3.0 ACUTE MYOCARDIAL INFARCTION 2.0-3.0 VALVULAR HEART DISEASE 2.0-3.0 ATRIAL FIBRILLATION 2.0-3.0 MECHANICAL VALVES(HIGH RISK) 2.5-3.5 RECURRENT MYOCARDIAL INFARCTION 2.5-3.5 Prothrombin Time 13.9 s 12.5-14.3 [facility] ([facility]) ID Date Data Source [id number] 11/12/2020 08:43:00 AM EST [facility] Name Value Range Interpretation Code Description [facility] Supporting Document(s) White Blood Count 6.5 10 4.0-10.0 [facility] ([facility]) Red Blood Count 3.41 10 4.00-5.40 [facility] ([facility]) Hemoglobin 10.9 g/dL 12.0-15.5 [facility] ([facility]) Hematocrit 33.5 % 36.0-47.0 [facility] Mean Corpuscular Volume 98.2 fl 80.0-96.0 [facility] ([facility]) Mean Corpuscular Hemoglobin 32.0 pg 27.0-33.0 MI DENT ([facility]) Red Cell Distribution Width 12.5 % 11.5-14.5 MI [facility] ([facility]) Mean Corpuscular HGB Conc 32.5 g/dL 32.0-36.5 MEDE NT ([facility]) Platelet Count, Automated 398 10 150-450 [facility] NT ([facility]) Neutrophils % 63.0 % 36.0-66.0 [facility] ([facility]) Lymph % 21.0 % 24.0-44.0 [facility] [facility]) Haines % 10.0 % 0.0-5.0 [facility] [place] Baso % 0.5 % 0.0-1.0 [facility] [place] [facility] Eos % 5.2 % 0.0-3.0 [facility] [place] [facility] Immature Granulocyte % 0.3 % 0-3.0 [facility] ([facility]) Nucleated Red Blood Cell % 0.0 % 0-0 MED ENT ([facility]) Neutrophils # 4.1 10 1.5-8.5 [facility] ([facility]) Lymph # 1.4 10 1.5-5.0 [facility] [place] [facility] Haines # 0.7 10 0.0-0.8 [facility] [place] [facility] Eos # 0.3 10 0.0-0.5 [facility] ([place] [facility]) Baso # 0.0 10 0.0-0.2 [facility] [place] [facility] ID Date Data Source [id number] 11/10/2020 10:42:00 AM EST [facility] ([facility]) Name Value Range Interpretation Code Description Data Maggi rce(s) Supporting Document(s) Glucose [Mass/volume] in Serum or Plasma 117 mg/dL 74-99 [facility] ([facility]) 100-125 mg/dL PRE-DIABETES/FASTING >126 mg/dL DIABETES/FASTING Urea nitrogen [Mass/volume] in Serum or Plasma 17 mg/dL 7-18 [facility] ([facility]) Creatinine 0.9 mg/dL 0.6-1.3 [facility] ([facility]) Sodium [Moles/volume] in Serum or Plasma 135 meq/L 136-145 [facility] ([facility]) NOTE: RESULT VERIFIED. Chloride [Moles/volume] in Serum or Plasma 100 meq/L 98-107 [facility] ([facility]) Potassium [Moles/volume] in Serum or Plasma 4.5 meq/L 3.5-5.1 [facility] [place] Glomerular filtration rate/1.73 sq M pre dicted among non-blacks [Volume Rate/Area] in Serum or Plasma by Creatinine-based formula (MDRD) 60 mL/min [facility] Calcium [Mass/volume] in Serum or Plasma 9.0 mg/dL 8.5-10.1 [facility] Carbon dioxide, total [Moles/volume] in Serum or Plasma 27 meq/L 21 -32 [facility] [place] Glomerular filtration rate/1.73 sq M pre dicted among blacks [Volume Rate/Area] in Serum or Plasma by Creatinine-based formula (MDRD) Laboratory test result [facility] ([facility]) <content>CHRONIC KIDNEY DISEASE STAGING PER NKF</content>
<content></content>
<content>STAGE I & II GFR >= 60 NORMAL TO MILDLY DECREASED</content>
<content>STAGE III GFR 30-59 MODERATELY DECREASED</content>
<content>STAGE IV GFR 15-29 SEVERELY DECREASED</content>
<content>STAGE V GFR <15 VERY LITTLE GFR LEFT</content>
<content>ESRD GFR <15 ON SUPERVISOR JOINERS</content>
<content></content> ID Date Data Source [id number] 11/10/2020 10:42:00 AM EST [facility]) Name Value Range Interpretation Code Description Data Maggi rce(s) Supporting Document(s) Leukocytes [#/volume] in Blood by Automated count 7.0 x10*3/UL 4.1-10 .9 [facility] ([facility]) Hemoglobin [Mass/volume] in Blood 11.3 g/dL 12.0-18.0 [facility] ([facility]) Erythrocytes [#/volume] in Blood by Automated count 3.38 x10*6/UL 4.2 0-6.30 [facility]) MCV 94.9 fL 80.0-97.0 [facility] ([facility]) Hematocrit [Volume Fraction] of Blood by Automated count 32.1 % 3 7.0-51.0 [facility] ([facility]) MCH 33.3 pg 26.0-32.0 [facility] ([place] [facility]) Erythrocyte distribution width [Ratio] by Automated count 13.6 % 11.6-13.7 [facility] ([facility]) MCHC 35.1 g/dL 31.0-38.0 [facility] ([place] [facility]) Platelets [#/volume] in Blood by Automated count 419 x10*3/UL 140-440 [facility] ([facility]) MPV 7.4 FL 7.8-11.0 [facility] ([place] [facility]) Mid % 4.3 % 1.7-9.3 [facility] ([place] [facility]) Neut % 80.5 % 37.0-92.0 [facility] ([place] [facility]) Lymph % 15.2 % 10.0-58.5 [facility] ([place] [facility]) Mid # 0.4 x10*3/UL 0.1-0.6 [facility] ([facility]) Lymph # 1.0 x10*3/UL 0.6-4.1 [facility] ([facility]) Neut # 5.6 x10*3/UL 2.0-7.8 [facility] ([facility]) ID Date Data Source [id number] 11/10/2020 07:48:00 AM EST [facility] Name Value Range Interpretation Code Description Data Maggi rce(s) Supporting Document(s) SARS coronavirus 2 RNA Not Detected [facility] [place] This lab was ordered by [facility] and reported by [facility]. ID Date Data Source [id number] 11/02/2020 11:30:00 AM EST [facility] Name Value Range Interpretation Code Description Data Maggi rce(s) Supporting Document(s) SARS coronavirus 2 RNA [Presence] in Res piratory specimen by BIA with probe detection [facility] This lab was ordered by [facility] a nd reported by [facility]. ID Date Data Source [id number] 10/26/2020 09:58:00 AM EST [facility] Name Value Range Interpretation Code Description Data Maggi rce(s) Supporting Document(s) SARS coronavirus 2 RNA [Presence] in Res piratory specimen by BIA with probe detection [facility] This lab was ordered by [facility] a nd reported by [facility]. ID Date Data Source [id number] 10/22/2020 07:32:00 PM EST [facility] Name Value Range Interpretation Code Description Data Maggi rce(s) Supporting Document(s) Respiratory pathogens identified [Type] in Nasopharynx by Probe and target amplification method [facility] This lab was ordered by [facility] a nd reported by [facility]. ID Date Data Source [id number] 10/22/2020 11:54:00 AM EST [facility] Name Value Range Interpretation Code Description Data Maggi rce(s) Supporting Document(s) SARS coronavirus 2 RNA [facility] This lab was ordered by [facility] and reported by [facility]. ID Date Data Source [id number] 10/17/2020 02:46:00 PM EST [facility] Name Value Range Interpretation Code Description Data Maggi rce(s) Supporting Document(s) SARS coronavirus 2 RNA [facility] This lab was ordered by [facility] and reported by [facility]. ID Date Data Source [id number] 07/03/2020 03:49:53 PM EDT [facility] Current Problems: Chronic periodontitis, localized, severe (TGZ51-C58.313)Dental disorder (ICD-525.9) (HEG99-R01.9)DENTAL RELIGIOUS STATUS (ICD-V45.84) (OXL29-N36.811)Current Medications: AMOXICILLIN 500 MG CAPS (AMOXICILLIN) 1 [...] to OS for extraction of #20. DX:defective baptism with sym perio. P:refer to OSE-scribe Amoxicillin [...] to OS for ext.Zina Carrillo DMD by [email or web address] (05/08/2020 9:55 AM): - Tooth 29 Note: [...] Known Allergies (updated 06/05/2020) Orders:Oral Surgery Referral [[id number]] Name Value Range Interpretation Code Description Data Maggi rce(s) Supporting Document(s) Procedure Social History Code Duration Value Status Description Data Source(s ) Smoking 09/11/2020 12:00:00 AM EST Patient is a former smoker completed Patient is a former smoker [facility] ([facility]) Vital Signs ID Date Data Source UNK Name Value Range Interpretation Code Description Data Source(s) Body height 63 [in_i] 63 [in_i] [facility] ([facility]) 5'3" Body weight 75.751 kg 75.751 kg [facility] ([facility]) Body surface area Derived from formula 1.79 m2 1.79 m2 [facility] ([facility]) Body weight 167.00 [lb_av] 167.00 [lb_av] [facility] Body mass index (BMI) [Ratio] 29.6 kg/m2 29.6 k g/m2 [facility] ([facility]) [facility] body weight 115 [lb_av] 115 [lb_av] [facility] Systolic blood pressure 132 mm[Hg] 132 mm[Hg] M LAZARUS ([facility]) Diastolic blood pressure 84 mm[Hg] 84 mm[Hg] [facility] Heart rate 84 /min 84 /min [facility] ([facility]) Systolic blood pressure 152 mm[Hg] 152 mm[Hg] M EDENT ([facility]) RT Arm Diastolic blood pressure 80 mm[Hg] 80 mm[Hg] [facility] ([facility]) RT Arm Body height 62.75 [in_i] 62.75 [in_i] [facility] ([facility]) 5'2.75" Body weight 168.00 [lb_av] 168.00 [lb_av] MED[facility] T ([facility]) Body mass index (BMI) [Ratio] 30.0 kg/m2 30.0 k g/m2 [facility] ([facility]) Body height 63 [in_i] 63 [in_i] [facility] ([facility]) 5'3" Body weight 167.00 [lb_av] 167.00 [lb_av] [facility] T ([facility]) Body mass index (BMI) [Ratio] 29.6 kg/m2 29.6 k g/m2 [facility] ([facility]) [facility] body weight 115 [lb_av] 115 [lb_av] [facility] Body weight 75.751 kg 75.751 kg [facility] ([facility]) Body surface area Derived from formula 1.79 m2 1.79 m2 [facility] ([facility]) Systolic blood pressure 144 mm[Hg] 144 mm[Hg] M EDENT ([facility]) RT Arm Diastolic blood pressure 80 mm[Hg] 80 mm[Hg] [facility] ([facility]) RT Arm Heart rate 80 /min 80 /min [facility] ([facility]) Body height 62.75 [in_i] 62.75 [in_i] [facility] ([facility]) 5'2.75" Body weight 169.12 [lb_av] 169.12 [lb_av] [facility] T ([facility]) Body mass index (BMI) [Ratio] 30.2 kg/m2 30.2 k g/m2 [facility] ([facility]) Body height 63 [in_i] 63 [in_i] [facility] ([facility]) 5'3" Body weight 168.00 [lb_av] 168.00 [lb_av] [facility] T ([facility]) Body mass index (BMI) [Ratio] 29.8 kg/m2 29.8 k g/m2 [facility] ([facility]) [facility] body weight 115 [lb_av] 115 [lb_av] [facility] T ([facility]) Body weight 76.205 kg 76.205 kg [facility] Body surface area Derived from formula 1.80 m2 1.80 m2 [facility] ([facility]) Body weight 170.12 [lb_av] 170.12 [lb_av] [facility] T ([facility]) Body mass index (BMI) [Ratio] 30.4 kg/m2 30.4 k g/m2 [facility] ([facility]) Heart rate 84 /min 84 /min [facility] ([facility]) Body height 62.75 [in_i] 62.75 [in_i] [facility] 5'2.75" Systolic blood pressure 112 mm[Hg] 112 mm[Hg] M EDENT ([facility]) RT Arm Diastolic blood pressure 84 mm[Hg] 84 mm[Hg] [facility] ([facility]) RT Arm Body height 63 [in_i] 63 [in_i] [facility] ([facility]) 5'3" Body weight 163.00 [lb_av] 163.00 [lb_av] [facility] T ([facility]) Body mass index (BMI) [Ratio] 28.9 kg/m2 28.9 k g/m2 [facility] body weight 115 [lb_av] 115 [lb_av] [facility] T ([facility]) Body weight 73.937 kg 73.937 kg [facility] ([facility]) Body surface area Derived from formula 1.77 m2 1.77 m2 [facility] ([facility]) Body height 63 [in_i] 63 [in_i] [facility] 5'3" Body weight 163.00 [lb_av] 163.00 [lb_av] [facility] T ([facility]) Body mass index (BMI) [Ratio] 28.9 kg/m2 28.9 k g/m2 [facility] ([facility]) [facility] body weight 115 [lb_av] 115 [lb_av] [facility] T ([facility]) Body weight 73.937 kg 73.937 kg [facility] ([facility]) Body surface area Derived from formula 1.77 m2 1.77 m2 [facility] ([facility]) Diastolic blood pressure 70 mm[Hg] 70 mm[Hg] [facility]) Body height 62.75 [in_i] 62.75 [in_i] [facility]) 5'2.75" Systolic blood pressure 122 mm[Hg] 122 mm[Hg] M EDENT ([facility]) Heart rate 82 /min 82 /min [facility] ([facility]) Body weight 166.50 [lb_av] 166.50 [lb_av] [facility] T ([facility]) Oxygen saturation in Arterial blood by Pulse oximetry 93 % 93 % [facility] ([facility]) Air Body mass index (BMI) [Ratio] 29.7 kg/m2 29.7 k g/m2 [facility] ([facility]) Body weight 171.00 [lb_av] 171.00 [lb_av] [facility] T ([facility]) Body height 63 [in_i] 63 [in_i] [facility] ([facility]) 5'3" Respiratory rate 12 /min 12 /min [facility] ( [facility]) Body mass index (BMI) [Ratio] 30.3 kg/m2 30.3 k g/m2 [facility] body weight 115 [lb_av] 115 [lb_av] [facility] T ([facility]) Body mass index (BMI) [Ratio] 28.7 kg/m2 28.7 k g/m2 [facility] ([facility]) Diastolic blood pressure 76 mm[Hg] 76 mm[Hg] [facility] ([facility]) Systolic blood pressure 122 mm[Hg] 122 mm[Hg] M EDENT ([facility]) Body height 62.75 [in_i] 62.75 [in_i] [facility] 5'2.75" Heart rate 88 /min 88 /min [facility] ([facility]) Body weight 161.00 [lb_av] 161.00 [lb_av] [facility] T ([facility]) Body height 63 [in_i] 63 [in_i] [facility] ([facility]) 5'3" Body weight 163.00 [lb_av] 163.00 [lb_av] [facility] T ([facility]) Body mass index (BMI) [Ratio] 28.9 kg/m2 28.9 k g/m2 [facility] ([facility]) [facility] body weight 115 [lb_av] 115 [lb_av] [facility] T ([facility]) Body weight 73.937 kg 73.937 kg [facility] ([facility]) Body surface area Derived from formula 1.77 m2 1.77 m2 [facility] ([facility]) Body height 62.75 [in_i] 62.75 [in_i] [facility] ([facility]) 5'2.75" Body weight 162.12 [lb_av] 162.12 [lb_av] [facility] T ([facility]) Body mass index (BMI) [Ratio] 28.9 kg/m2 28.9 k g/m2 [facility] ([facility]) Diastolic blood pressure 76 mm[Hg] 76 mm[Hg] [facility] ([facility]) RT Arm Systolic blood pressure 106 mm[Hg] 106 mm[Hg] M EDENT ([facility]) RT Arm Heart rate 80 /min 80 /min [facility] ([facility]) Body height 63 [in_i] 63 [in_i] [facility] ([facility]) 5'3" Body weight 163.00 [lb_av] 163.00 [lb_av] [facility] T ([facility]) Body mass index (BMI) [Ratio] 28.9 kg/m2 28.9 k g/m2 [facility] body weight 115 [lb_av] 115 [lb_av] [facility] T ([facility]) Body weight 73.937 kg 73.937 kg [facility] ([facility]) Body surface area Derived from formula 1.77 m2 1.77 m2 [facility] Body height 62.75 [in_i] 62.75 [in_i] [facility] ([facility]) 5'2.75" Body weight 165.00 [lb_av] 165.00 [lb_av] [facility] T ([facility]) Body mass index (BMI) [Ratio] 29.5 kg/m2 29.5 k g/m2 [facility] ([facility]) Heart rate 92 /min 92 /min [facility] ([facility]) Systolic blood pressure 110 mm[Hg] 110 mm[Hg] M EDENT ([facility]) RT Arm Diastolic blood pressure 70 mm[Hg] 70 mm[Hg] [facility] ([facility]) RT Arm Body mass index (BMI) [Ratio] 28.9 kg/m2 28.9 k g/m2 [facility] body weight 115 [lb_av] 115 [lb_av] [facility] T ([facility]) Body weight 73.937 kg 73.937 kg [facility] ([facility]) Body surface area Derived from formula 1.77 m2 1.77 m2 [facility] Body height 63 [in_i] 63 [in_i] [facility] 5'3" Body weight 163.00 [lb_av] 163.00 [lb_av] [facility] T ([facility]) Body mass index (BMI) [Ratio] 28.9 kg/m2 28.9 k g/m2 [facility] ([facility]) Body weight 163.00 [lb_av] 163.00 [lb_av] [facility] T ([facility]) [facility] body weight 115 [lb_av] 115 [lb_av] [facility] ([facility]) Body weight 73.937 kg 73.937 kg [facility] ([facility]) Body surface area Derived from formula 1.77 m2 1.77 m2 [facility] ([facility]) Body height 63 [in_i] 63 [in_i] [facility] ([facility]) 5'3" Body height 63 [in_i] 63 [in_i] [facility] ([facility]) 5'3" Body weight 163.00 [lb_av] 163.00 [lb_av] [facility] T ([facility]) Body mass index (BMI) [Ratio] 28.9 kg/m2 28.9 k g/m2 [facility] ([facility]) [facility] body weight 115 [lb_av] 115 [lb_av] [facility] T ([facility]) Body weight 73.937 kg 73.937 kg [facility] ([facility]) Body surface area Derived from formula 1.77 m2 1.77 m2 [facility] ([facility]) Heart rate 104 /min 104 /min MEDENT ([facility]) Diastolic blood pressure 80 mm[Hg] 80 mm[Hg] MEDENT ([facility]) RT Arm Body height 62.75 [in_i] 62.75 [in_i] [facility] ( [facility] 5'2.75" Systolic blood pressure 142 mm[Hg] 142 mm[Hg] M EDENT ([facility]) RT Arm Systolic blood pressure 136 mm[Hg] 136 mm[Hg] [facility] Diastolic blood pressure 84 mm[Hg] 84 mm[Hg] MEDENT ([facility]) Body weight 165.12 [lb_av] 165.12 [lb_av] MEDEN T ([facility]) Body mass index (BMI) [Ratio] 29.5 kg/m2 29.5 k g/m2 MEDENT ([facility]) Body weight 163.00 [lb_av] 163.00 [lb_av] MEDEN T ([facility]) Body mass index (BMI) [Ratio] 28.9 kg/m2 28.9 k g/m2 MEDENT ([facility]) Body height 63 [in_i] 63 [in_i] MEDENT ([facility]) 5'3" [facility] body weight 115 [lb_av] 115 [lb_av] MEDEN T ([facility]) Body weight 73.937 kg 73.937 kg MEDENT ([facility]) Body surface area Derived from formula 1.77 m2 1.77 m2 [facility] ([facility]) Systolic blood pressure 122 mm[Hg] 122 mm[Hg] M EDENT ([facility]) RT Arm Diastolic blood pressure 74 mm[Hg] 74 mm[Hg] MEDENT ([facility]) RT Arm Heart rate 96 /min 96 /min MEDENT ([facility]) Body height 62.75 [in_i] 62.75 [in_i] [facility]ENT ( [facility] 5'2.75" Body weight 163.00 [lb_av] 163.00 [lb_av] MEDEN T ([facility]) verbal Body mass index (BMI) [Ratio] 29.1 kg/m2 29.1 k g/m2 MEDENT ([facility]) [facility] body weight 115 [lb_av] 115 [lb_av] MEDEN T ([facility]) Respiratory rate 12 /min 12 /min MEDENT ( [facility]) Body height 63 [in_i] 63 [in_i] MEDENT ([facility]) 5'3" Body weight 171.00 [lb_av] 171.00 [lb_av] MEDEN T ([facility]) Body mass index (BMI) [Ratio] 30.3 kg/m2 30.3 k g/m2 MEDENT ([facility]) Body height 62.75 [in_i] 62.75 [in_i] MEDENT ([facility]) 5'2.75" Heart rate 98 /min 98 /min [facility] Systolic blood pressure 146 mm[Hg] 146 mm[Hg] [facility]) Diastolic blood pressure 74 mm[Hg] 74 mm[Hg] [facility] Body weight 161.00 [lb_av] 161.00 [lb_av] MEDEN T ([facility]) Body mass index (BMI) [Ratio] 28.7 kg/m2 28.7 k g/m2 [facility] ([facility]) Systolic blood pressure 120 mm[Hg] 120 mm[Hg] M [facility] ([facility]) Diastolic blood pressure 78 mm[Hg] 78 mm[Hg] [facility] ([facility]) Heart rate 94 /min 94 /min [facility] ([facility]) Oxygen saturation in Arterial blood by Pulse oximetry 95 % 95 % [facility] ([facility]) Room Air Body height 63 [in_i] 63 [in_i] [facility] ([facility]) 5'3" Body weight 168.00 [lb_av] 168.00 [lb_av] [facility] ([facility]) Body mass index (BMI) [Ratio] 29.8 kg/m2 29.8 k g/m2 [facility] ([facility]) [facility] body weight 115 [lb_av] 115 [lb_av] [facility] Body weight 76.205 kg 76.205 kg [facility] ([facility]) Body surface area Derived from formula 1.80 m2 1.80 m2 [facility] ([facility]) Systolic blood pressure 122 mm[Hg] 122 mm[Hg] [facility]) RT Arm Diastolic blood pressure 60 mm[Hg] 60 mm[Hg] [facility] ([facility]) RT Arm Heart rate 88 /min 88 /min [facility]) Body height 62.75 [in_i] 62.75 [in_i] [facility] 5'2.75" Body weight 169.50 [lb_av] 169.50 [lb_av] MEDEN T ([facility]) Body mass index (BMI) [Ratio] 30.3 kg/m2 30.3 k g/m2 MEDENT ([facility]) Body weight 173.00 [lb_av] 173.00 [lb_av] MEDEN T ([facility]) Diastolic blood pressure 74 mm[Hg] 74 mm[Hg] MEDENT ([facility]) RT Arm Systolic blood pressure 166 mm[Hg] 166 mm[Hg] M EDENT ([facility]) RT Arm Heart rate 80 /min 80 /min MED[facility] ([facility]) Body height 62.75 [in_i] 62.75 [in_i] MEDENT ([facility]) 5'2.75" Body mass index (BMI) [Ratio] 30.9 kg/m2 30.9 k g/m2 MED[facility] ([facility]) Body mass index (BMI) [Ratio] 3.0 kg/m2 3.0 kg /m2 MEDENT ([facility], ) Respiratory rate 12 /min 12 /min MEDENT ( [facility], ) Body height 63 [in_i] 63 [in_i] MEDENT ([facility], ) 5'3" Body weight 17.00 [lb_av] 17.00 [lb_av] [facility] body weight 115 [lb_av] 115 [lb_av] MEDEN T ([facility], ) Systolic blood pressure 136 mm[Hg] 136 mm[Hg] [facility] RT Arm Diastolic blood pressure 80 mm[Hg] 80 mm[Hg] MEDENT ([facility]) RT Arm Body weight 171.50 [lb_av] 171.50 [lb_av] MEDEN T ([facility]) Body mass index (BMI) [Ratio] 30.6 kg/m2 30.6 k g/m2 MEDENT ([facility]) Heart rate 88 /min 88 /min MED[facility] ([facility]) Body height 62.75 [in_i] 62.75 [in_i] MARKUS ([facility]) 5'2"
--- NOTE | 2021-08-29 14:44 | HPEPDOC ---
General Date of Admission 08/29/21 Date of Service: Aug 29, 2021 Chief Complaint The patient is a 80-year-old female admitted with a reason for visit of Fall On Thinners. Source: Patient, RN/MD History of Present Illness 80-year-old female resident of [facility] assisted living with past medical history of CVA, cognitive impairment after stroke, CHINO untreated, asthma, orthostatic hypotension, vertigo, hypertension, hypothyroid, was brought into the emergency room for 4 episodes of falling in the past 24 hours with possible loss of consciousness during 1 of these falls. Patient complained of being weak fatigued for the past 2 days. She also complained of a dry cough without any phlegm production. Denied any sore throat runny nose. Denied any nausea vomiting or diarrhea. She also complained of some shortness of breath to EMS though she did not mention about that to me but I noted that she was mildly tachypneic at about 22/min. She has a low-grade fever of 100.1 in the ED. her WBC was 12.6. Her UA was clean. Chest x-ray does not show any consolidation or infiltrates. She is being admitted for evaluation of syncope and falls with possible underlying infection. Home Medications Scheduled Alendronate Sodium (Alendronate Sodium) 70 Mg Tablet, 70 MG PO 1XWK, (Reported) SUNDAYS Aspirin (Aspirin EC) 81 Mg Tablet.dr, 81 MG PO DAILY, (Reported) Calcium Carbonate (Tums) 500 Mg Chw, 500 MG PO BID, (Reported) Carboxymethylcellulose Sodium (Refresh Tears) 0.5 % Johan, 1 DROP OU TID, (Report ed) Cholecalciferol (Vitamin D3) (Vitamin D3) 1,000 Unit Tablet, 2,000 UNITS PO DAILY, (Reported) @ 1600 Clopidogrel Bisulfate (Plavix) 75 Mg Tablet, 75 MG PO DAILY, (Reported) @1700 Cyclosporine (Restasis) 0.05 % Emu, 1 DROP OU BID, (Reported) Duloxetine Hcl (Duloxetine HCl) 60 Mg Cap, 60 MG PO DAILY, (Reported) TAKES WITH 30MG FOR TOTAL DOSE 90MG Duloxetine Hcl (Duloxetine HCl) 30 Mg Capsule.dr, 30 MG PO DAILY, (Reported) TAKES WITH 60MG FOR TOTAL DOSE 90MG Gabapentin (Gabapentin) 400 Mg Cap, 400 MG PO QHS, (Reported) Ipratropium [place] (Ipratropium [place]) 15 Ml [place], 2 SPRAY NARES BID, (Reported) Levothyroxine Sodium (Levoxyl) 125 Mcg Tab, 62.5 MCG PO DAILY, (Reported) Loratadine (Loratadine) 10 Mg Tab, 10 MG PO DAILY, (Reported) Losartan Potassium (Losartan Potassium) 50 Mg Tab, 50 MG PO QHS, (Reported) Multivitamins (Thera M Plus Tablet) 1 Each Tablet, 1 TAB PO DAILY, (Reported) Omeprazole (Omeprazole) 40 Mg Capsule.dr, 40 MG PO DAILY, (Reported) Oxybutynin Chloride (Oxybutynin Chloride ER) 5 Mg Tab, 5 MG PO DAILY, (Reported) Psyllium Husk/Aspartame (Metamucil Fiber Singles Packet) 51.7 % Kevin, 3.4 GRAM PO DAILY, (Reported) Simvastatin (Zocor) 20 Mg Tab, 20 MG PO QHS, (Reported) Vit A/Vit C/Vit E/Zinc/Copper (Preservision Areds Tablet) 1 Each Tablet, 2 TAB PO BID, (Reported) 0900, 1600 Scheduled PRN Acetaminophen (Acetaminophen 8 Hour) 650 Mg Tablet.er, 650 MG PO Q8H PRN for PAIN, (Reported) Albuterol Sulfate (Ventolin Hfa) 18 Gm Hfa.aer.ad, 2 PUFFS INH QID PRN for SOB/W HEEZING, (Reported) Docusate Sodium (Colace) 100 Mg Cap, 100 MG PO BID PRN for CONSTIPATION, (Reported) Guaifenesin/Dextromethorphan (Guaifenesin Dm Syrup) 1 Syp Syp, 10 ML PO Q4H PRN for COUGH, (Reported) Lidocaine HCl (Aspercreme) 4 % Cre, 1 DOSE TOP Q6H PRN for PAIN, (Reported) APPLY TO AREAS OF PAIN Magnesium Hydroxide (Milk of Magnesia) 400 Mg/5 Ml Oral.susp, 2,400 MG PO DAILY PRN for CONSTIPATION, (Reported) Meclizine HCl (Meclizine HCl) 25 Mg Tab, 25 MG PO Q6H PRN for DIZZINESS, (Reported) Mupirocin (Mupirocin) 1 Dose/30 Gm Cream, 1 APPLIC TOP BID PRN for RASH, (Reported) Nystatin (Nystatin Powder) 100,000 Unit/Gm Pow, 1 DOSE TOP BID PRN for RASH, (Reported) APPLY TO AFFECTED AREA UNDER BREASTS AND IN GROIN AREA Phenyleph/Pramoxin/Glycr/W.pet (Preparation H Cream) 1 Cre Cre, 1 DOSE NV QID PRN for HEMORRHOIDS, (Reported) Saliva Substitute Combo No.9 (Biotene) 1 Liq Liq, 1 DOSE PO QID PRN for DRY MOUTH, (Reported) Simethicone (Simethicone) 80 Mg Tab.chew, 80 MG PO QID PRN for GAS PAIN, (Reported) Sodium Chloride (Saline Nasal [place]) 88 Ml [place], 2 SPRAYS NA Q3HP PRN for NOSEBLEED OR DRY NOSE, (Reported) Allergies Coded Allergies: TAPE (Verified Adverse Reaction, Intermediate, RED AREA, TAKES SKIN OFF, 07/23/15) Past Medical History Medical History CVA in 2014 Hypertension Hyperlipidemia Obstructive sleep apnea, does not wear her CPAP Hypothyroid GERD Neuropathy, right lower extremity/right foot follows with neurology as outpa tient. Overactive bladder with bladder spasms on oxybutynin H/o Recurrent epistaxis in the setting of chronic aspirin and Plavix for CVA Cognitive impairment after stroke Vertigo Orthostatic hypotension Sinus surgery 1960 Asthma Anxiety and depression Surgical History Left nasal cautery. Left sphenopalatine artery ligation. Appendectomy around 1959 Tubal ligation. Lower back surgery for prolapsed disc and stenosis and 2013 Multiple hammertoe surgeries Bunionectomy Removal of neuroma in bilateral feet hemorrhoidectomy Sinus surgery 1960 Family History Mother: , pancreatic cancer Father: , CO 3 brothers: All ; one brother had history of CO Social History * Smoker: former Smoker Alcohol: Denies Drugs: denies A-FIB/CHADSVASC A-FIB History Current/History of A-Fib/PAF?: No Review of Systems Constitutional: Reports: Fever, Malaise, Weakness, Fatigue; Denies: Chills Eyes: Denies: Pain, Vision change ENT: Denies: Head Aches, Ear Pain, Dysphagia Skin: Denies: Rash, Lesions, Breakdown Pulmonary: Reports: Dyspnea, Cough Cardiovascular: Denies: Chest Pain, Palpitations, Orthopnea, Paroxysmal Noc. Dyspnea Gastrointestinal: Denies: Nausea, Vomiting, Abdominal Pain, Diarrhea Genitourinary: Reports: Incontinence Hematologic: Denies: Bruising, Bleeding Excessively Musculoskeletal: Reports: Neck Pain, Back Pain Psych: Reports: Anxiety, Depression Physical Examination General Exam: Positive: Alert, Cooperative, No Acute Distress Eye Exam: Positive: PERRLA, Conjunctiva & lids normal, EOMI; Negative: Sclera icteric ENT Exam: Positive: Atraumatic, Pharynx Normal, Other ENT (Dry mucous membrane) Neck Exam: Positive: Supple; Negative: JVD, thyromegaly Chest Exam: Positive: Other (Crackles at the right base); Negative: Rales, Rhonchi, Wheezing Heart Exam: Positive: Rate Normal, Regular Rhythm, Normal S1, Normal S2; Negative: Murmurs, Rubs Abdomen Exam: Positive: Normal bowel sounds, Soft; Negative: Tenderness Extremity Exam: Negative: Clubbing, Cyanosis, Edema Skin Exam: Positive: Other skin issue (Abrasions on the right leg) Psych Exam: Positive: Other; Negative: Memory Intact Vital Signs Vital Signs Date Time Temp Pulse Resp B/P (MAP) Pulse Ox O2 Delivery O2 Flow Rate FiO2 08/29/21 13:16 200/86 (124) 08/29/21 10:30 100.1 85 24 94 Room Air Laboratory Data Labs 24H Laboratory Tests 2 08/29/21 11:02: Anion Gap 5L, Glomerular Filtration Rate > 60.0, Calcium Level 8.6L, Total Bilirubin 0.9, Direct Bilirubin 0.3H, Aspartate Amino Transf (AST/SGOT) 21, Alanine Aminotransferase (ALT/SGPT) 24, Alkaline Phosphatase 78, Total Creatine Kinase 66, Creatine Kinase MB 1.4, Creatine Kinase MB Relative Index 2.12, Troponin I < 0.02, Total Protein 7.5, Albumin 3.4, Albumin/Globulin Ratio 0.8L, Lipase 31L 08/29/21 11:03: Immature Granulocyte % (Auto) 0.6, Neutrophils (%) (Auto) 76.1H, Lymphocytes (%) (Auto) 14.0L, Monocytes (%) (Auto) 8.5H, Eosinophils (%) (Auto) 0.6, Basophils (%) (Auto) 0.2, Neutrophils # (Auto) 9.4H, Lymphocytes # (Auto) 1.7, Monocytes # (Auto) 1.1H, Eosinophils # (Auto) 0.1, Basophils # (Auto) 0.0, Nucleated Red Blood Cells % (auto) 0.0, Lactic Acid Level 0.9 08/29/21 11:50: Prothrombin Time 14.2H, Prothromb Time International Ratio 1.05 08/29/21 12:35: Urine Color YELLOW, Urine Appearance CLEAR, Urine pH 7.0, Urine Specific [place] 1.014, Urine Protein 1+H, Urine Glucose (UA) NEGATIVE, Urine Ketones TRACEH, Urine Blood NEGATIVE, Urine Nitrite NEGATIVE, Urine Bilirubin NEGATIVE, Urine Urobilinogen 0.2, Urine Leukocyte Esterase NEGATIVE, Urine WBC (Auto) 0, Urine RBC (Auto) 0, Urine Hyaline Casts (Auto) 0, Urine Bacteria (Auto) NEGATIVE, Urine Squamous Epithelial Cells 0, Urine Mucus (Auto) SMALL, Urine Sperm (Auto) CBC/BMP Laboratory Tests 08/29/21 11:02 08/29/21 11:03 Microbiology Microbiology 08/29/21 Blood Culture, Received Pending 08/29/21 Respiratory Virus Panel (PCR) ([facility]) - Final, Complete 08/29/21 Blood Culture, Received Pending Assessment/Plan 80-year-old female resident of [facility] living with past medical history of CVA, cognitive impairment after stroke, CHINO untreated, asthma, orthostatic hypotension, vertigo, hypertension, hypothyroid, was brought into the emergency room for 4 episodes of falling in the past 24 hours with possible loss of consciousness during 1 of these falls. Patient complained of being weak fatigued for the past 2 days. She also complained of a dry cough without any phlegm production. Denied any sore throat runny nose. Denied any nausea vomiting or diarrhea. She also complained of some shortness of breath to EMS though she did not mention about that to me but I noted that she was mildly tachypneic at about 22/min. She has a low-grade fever of 100.1 in the ED. chest x-ray does not show any consolidation or infiltrates. She is being admitted for evaluation of syncope and falls with possible underlying infection. Syncope and fall This is likely due to weakness and malaise I feel patient may be having an infection We will monitor on the telemetry. Possible the pneumonia Patient has a cough, low-grade fever, tachypnea and was briefly hypoxic with EMS, has a WBC of 12 point The chest x-ray does not show any infiltrate or consolidation but I would still treat the patient for likely developing pneumonia We will start the patient on Zosyn IV fluid HTN losartan continued. HLD statin continue CHINO on home CPAP Does not use her CPAP Hypothyroidism Home levothyroxine continued RLE and right foot neuropathy Home gabapentin continued Depression/back pain home duloxetine continued H/o CVA, 2014/with cognitive impairment Home clopidogrel continued; H/o GERD ppi continued Presumed bladder spasms oxybutynin continued Plan / VTE VTE Prophylaxis Ordered?: Yes Montserrat Moran MD Aug 29, 2021 14:09
[2021-08-29] MEDS ORDERED: NS 500 ML IV ONE (15:00)
[2021-08-29] MEDS ORDERED: ACETAMINOPHEN 500 MG TAB PO ONE (15:00)
[2021-08-29] MEDS ORDERED: PIPERACILLIN/TAZOBACTAM SOD 3.375 GM in D5W MINI-BAG PLUS 50 ML IV ONE (16:00)
[2021-08-29] MEDS: ASPIRIN 81MG ENTERIC TABLET PO SCH (16:53)
[2021-08-29] MEDS: PANTOPRAZOLE 40MG TAB (PROTONIX) PO SCH (16:53)
[2021-08-29] MEDS: CLOPIDOGREL 75 MG TAB PO SCH (16:53)
[2021-08-29] MEDS: **hydrALAZINE HCL** 25 MG TAB PO SCH ×2 (16:55→23:33)
[2021-08-29] MEDS ORDERED: amLODIPine 5 MG TAB PO ONE (17:00)
--- NOTE | 2021-08-29 18:21 | ECGEPIP ---
[facility] - ED Test Date: 2021-08-29 Pat Name: ROYA VILLAFANA Department: Room: - Gender: Female Pharmacy Picking Tech: NATHANIEL : 1940 Requested By: Marysol Lee Order Number: [id number] Reading MD: Marysol Lee Measurements Intervals Peterson Rate: 82 P: 49 NC: 158 QRS: 53 QRSD: 98 T: 61 QT: 400 QTc: 467 Interpretive Statements Normal sinus rhythm right ventricular conduction delay similar 05/21/20 Electronically Signed on 08-29-2021 18:21:43 EDT by Marysol Lee
[2021-08-29 18:25] VITALS: BP 152/67
[2021-08-29] MEDS: NS 1,000 ML IV SCH ×2 (18:35→23:33)
[2021-08-29 20:00] VITALS: BP 137/64
[2021-08-29] MEDS: DOCUSATE SODIUM 100MG CAPSULE PO SCH (20:35)
[2021-08-29] MEDS: SIMVASTATIN 20 MG TAB PO SCH (20:35)
[2021-08-29] MEDS: ACETAMINOPHEN 500 MG TAB PO SCH (20:37)
[2021-08-29] MEDS: GABAPENTIN 400MG CAP PO SCH (20:38)
[2021-08-29] MEDS: LOSARTAN 50MG TABLET PO SCH (20:38)
[2021-08-29] MEDS: PIPERACILLIN/TAZOBACTAM SOD 3.375 GM in D5W MINI-BAG PLUS 50 ML IV SCH (23:32)
[2021-08-30] VITALS (8 sets, daily range): BP systolic 115–177; BP diastolic 58–80
[2021-08-30] MEDS: PIPERACILLIN/TAZOBACTAM SOD 3.375 GM in D5W MINI-BAG PLUS 50 ML IV SCH ×4 (04:47→23:58)
[2021-08-30 05:40] LABS: BASO # 0.1 10^3/uL (0.0-0.2); BASO % 0.4 % (0.0-1.0); EOS # 0.1 10^3/uL (0.0-0.5); EOS % 0.7 % (0.0-3.0); HEMATOCRIT 31.9 % (36.0-47.0); HEMOGLOBIN 10.8 g/dl (12.0-15.5); LYMPH # 1.5 10^3/uL (1.5-5.0); LYMPH % 12.2 % (24.0-44.0); MEAN CORPUSCULAR HEMOGLOBIN 32.9 pg (27.0-33.0); MEAN CORPUSCULAR HGB CONC 33.9 g/dl (32.0-36.5); MEAN CORPUSCULAR VOLUME 97.3 fl (80.0-96.0); MONO % 7.9 % (2.0-8.0); NEUTROPHILS # 9.5 10^3/uL (1.5-8.5); NEUTROPHILS % 78.4 % (36.0-66.0); PLATELET COUNT, AUTOMATED 237 10^3/uL (150-450); RED BLOOD COUNT 3.28 10^6/uL (4.00-5.40); WHITE BLOOD COUNT 12.1 10^3/uL (4.0-10.0)
[2021-08-30] MEDS ORDERED: PILL CUTTER 1 EACH XX PRN (05:45)
[2021-08-30] MEDS: **hydrALAZINE HCL** 25 MG TAB PO SCH ×4 (06:00→23:58)
[2021-08-30 06:01] LABS: BLOOD UREA NITROGEN 16 MG/DL (7-18); CALCIUM LEVEL 7.9 MG/DL (8.8-10.2); CARBON DIOXIDE LEVEL 24 MEQ/L (21-32); CHLORIDE LEVEL 103 MEQ/L (98-107); CREATININE FOR GFR 0.88 MG/DL (0.55-1.30); GLOMERULAR FILTRATION RATE > 60.0 (>32); GLUCOSE, FASTING 94 MG/DL (70-100); POTASSIUM SERUM 3.4 MEQ/L (3.5-5.1); SODIUM LEVEL 135 MEQ/L (136-145)
[2021-08-30] MEDS: LEVOTHYROXINE 125MCG TABLET (0.125MG) PO SCH (06:17)
[2021-08-30] MEDS ORDERED: DULoxetine 30MG CAPSULE (CYMBALTA) PO SCH (09:00)
[2021-08-30] MEDS: DOCUSATE SODIUM 100MG CAPSULE PO SCH ×2 (09:02→20:31)
[2021-08-30] MEDS: ASPIRIN 81MG ENTERIC TABLET PO SCH (09:02)
[2021-08-30] MEDS: oxyBUTYnin *DITROPAN XL* 5 MG TABCR PO SCH (09:02)
[2021-08-30] MEDS: DULoxetine 30MG CAPSULE (CYMBALTA) PO SCH (09:02)
[2021-08-30] MEDS: ACETAMINOPHEN 500 MG TAB PO SCH ×2 (09:02→20:31)
[2021-08-30] MEDS: PANTOPRAZOLE 40MG TAB (PROTONIX) PO SCH (09:02)
[2021-08-30] MEDS ORDERED: POTASSIUM CHLORIDE 10MEQ SR TABLET PO ONE (09:30)
--- NOTE | 2021-08-30 14:52 | IPNPDOC ---
Subjective Date Seen The patient was seen on 08/30/21. Subjective Chief Complaint/HPI No new issues overnight. Did have low-grade fever of 100.6 at night. Continues to be very weak and fatigued and sleeping. Poor appetite. Had bowel movement. I was called by nurse at 11: 53 am to evaluate the patient She was sitting in the chair and was sleeping. Nurse woke her up to order lunch and she felt patient was confused, her speech she felt was garbled and she may have had a facial droop. I was at bedside within 5 mins. She had been helped to bed by that time . I did not appreciate and facial droop. She was answering questions her speech was a little unclear though i could understand her and her mental status was at baseline. Her mouth was very dry. After drinking sips of water speech cleared. She did not have any weakness in her extremities and there was no pronator drift. I did not feel there was any neurological event. I will place her on q 4 hours neuro checks. Objective Physical Examination General Exam: Positive: Alert, Cooperative, No Acute Distress Eye Exam: Positive: PERRLA, Conjunctiva & lids normal, EOMI; Negative: Sclera icteric ENT Exam: Positive: Atraumatic, Pharynx Normal, Other ENT (Dry mucous membrane) Neck Exam: Positive: Supple; Negative: JVD, thyromegaly Chest Exam: Positive: Other (Crackles at the right base); Negative: Rales, Rhonchi, Wheezing Heart Exam: Positive: Rate Normal, Regular Rhythm, Normal S1, Normal S2; Negative: Murmurs, Rubs Abdomen Exam: Positive: Normal bowel sounds, Soft; Negative: Tenderness Extremity Exam: Negative: Clubbing, Cyanosis, Edema Skin Exam: Positive: Other skin issue (Abrasions on the right leg) Psych Exam: Positive: Other; Negative: Memory Intact Assessment /Plan Assessment 80-year-old female resident of [facility] assisted living with past medical history of CVA, cognitive impairment after stroke, CHINO untreated, asthma, orthostatic hypotension, vertigo, hypertension, hypothyroid, was brought into the emergency room for 4 episodes of falling in the past 24 hours with possible loss of consciousness during 1 of these falls. Patient complained of being weak fatigued for the past 2 days. She also complained of a dry cough without any phlegm production. Denied any sore throat runny nose. Denied any nausea vomiting or diarrhea. She also complained of some shortness of breath to EMS though she did not mention about that to me but I noted that she was mildly tachypneic at about 22/min. She has a low-grade fever of 100.1 in the ED. chest x-ray does not show any consolidation or infiltrates. She is being admitted for evaluation of syncope and falls with possible underlying infection. Syncope and fall This is likely due to weakness and malaise I feel patient may be having an infection likely viral however cannot rule out bacterial infection. Possible the pneumonia Patient has a cough, low-grade fever, tachypnea and was briefly hypoxic with EMS, has a WBC> 12 The chest x-ray does not show any infiltrate or consolidation but I would still treat the patient for likely developing pneumonia. Procalcitonin is not elevated so this may be a viral infection however will empirically cover for with antibiotic for bacteremia Blood cultures are negative will de-escalate antibiotics. Questionable episode facial droop and garbled speech will place on q4 hours neuro checks. HTN losartan continued. HLD statin continue CHINO on home CPAP Does not use her CPAP Hypothyroidism Home levothyroxine continued RLE and right foot neuropathy Home gabapentin continued Depression/back pain home duloxetine continued H/o CVA, 2015/with cognitive impairment Home clopidogrel continued; H/o GERD ppi continued Presumed bladder spasms oxybutynin continued Plan/VTE VTE Prophylaxis Ordered?: Yes VS, I&O, 24H, Fishbone Vital Signs/I&O Vital Signs Date Time Temp Pulse Resp B/P (MAP) Pulse Ox O2 Delivery O2 Flow Rate FiO2 08/30/21 08:00 98.0 80 18 125/58 (80) 93 Nasal Cannula 2.0 I&O- Last 24 Hours up to 6 AM 08/30/21 05:59 Intake Total 50 ml Output Total 0 ml Balance 50 ml Laboratory Data 24H LABS Laboratory Tests 2 08/29/21 11:02: Anion Gap 5L, Glomerular Filtration Rate > 60.0, Calcium Level 8.6L, Total Bilirubin 0.9, Direct Bilirubin 0.3H, Aspartate Amino Transf (AST/SGOT) 21, Alanine Aminotransferase (ALT/SGPT) 24, Alkaline Phosphatase 78, Total Creatine Kinase 66, Creatine Kinase MB 1.4, Creatine Kinase MB Relative Index 2.12, Troponin I < 0.02, Total Protein 7.5, Albumin 3.4, Albumin/Globulin Ratio 0.8L, Lipase 31L, Procalcitonin <0.05 08/29/21 11:03: Immature Granulocyte % (Auto) 0.6, Neutrophils (%) (Auto) 76.1H, Lymphocytes (%) (Auto) 14.0L, Monocytes (%) (Auto) 8.5H, Eosinophils (%) (Auto) 0.6, Basophils (%) (Auto) 0.2, Neutrophils # (Auto) 9.4H, Lymphocytes # (Auto) 1.7, Monocytes # (Auto) 1.1H, Eosinophils # (Auto) 0.1, Basophils # (Auto) 0.0, Nucleated Red Blood Cells % (auto) 0.0, Lactic Acid Level 0.9 08/29/21 11:50: Prothrombin Time 14.2H, Prothromb Time International Ratio 1.05 08/29/21 12:35: Urine Color YELLOW, Urine Appearance CLEAR, Urine pH 7.0, Urine Specific [place] 1.014, Urine Protein 1+H, Urine Glucose (UA) NEGATIVE, Urine Ketones TRACEH, Urine Blood NEGATIVE, Urine Nitrite NEGATIVE, Urine Bilirubin NEGATIVE, Urine Urobilinogen 0.2, Urine Leukocyte Esterase NEGATIVE, Urine WBC (Auto) 0, Urine RBC (Auto) 0, Urine Hyaline Casts (Auto) 0, Urine Bacteria (Auto) NEGATIVE, Urine Squamous Epithelial Cells 0, Urine Mucus (Auto) SMALL, Urine Sperm (Auto) 08/30/21 05:22: Immature Granulocyte % (Auto) 0.4, Neutrophils (%) (Auto) 78.4H, Lymphocytes (%) (Auto) 12.2L, Monocytes (%) (Auto) 7.9, Eosinophils (%) (Auto) 0.7, Basophils (%) (Auto) 0.4, Neutrophils # (Auto) 9.5H, Lymphocytes # (Auto) 1.5, Monocytes # (Auto) 1.0H, Eosinophils # (Auto) 0.1, Basophils # (Auto) 0.1, Nucleated Red Blood Cells % (auto) 0.0, Anion Gap 8, Glomerular Filtration Rate > 60.0, Calcium Level 7.9L CBC/BMP Laboratory Tests 08/29/21 11:02 08/29/21 11:03 08/30/21 05:22 Microbiology Microbiology 08/29/21 Blood Culture, Received Pending 08/29/21 Respiratory Virus Panel (PCR) ([facility]) - Final, Complete 08/29/21 Blood Culture, Received Pending Montserrat Moran MD Aug 30, 2021 09:04
[2021-08-30] MEDS: CLOPIDOGREL 75 MG TAB PO SCH ×2 (18:00→18:07)
[2021-08-30] MEDS: GABAPENTIN 400MG CAP PO SCH (20:31)
[2021-08-30] MEDS: LOSARTAN 50MG TABLET PO SCH (20:31)
[2021-08-30] MEDS: SIMVASTATIN 20 MG TAB PO SCH (20:31)
[2021-08-30] MEDS ORDERED: CEPACOL LOZENGE PO PRN (22:20)
[2021-08-31] MEDS: LEVOTHYROXINE 125MCG TABLET (0.125MG) PO SCH (05:45)
[2021-08-31] MEDS: PIPERACILLIN/TAZOBACTAM SOD 3.375 GM in D5W MINI-BAG PLUS 50 ML IV SCH ×3 (05:46→17:09)
[2021-08-31] MEDS: **hydrALAZINE HCL** 25 MG TAB PO SCH ×3 (05:46→17:09)
[2021-08-31 06:00] VITALS: BP 137/77
[2021-08-31 07:36] LABS: HEMATOCRIT 30.8 % (36.0-47.0); HEMOGLOBIN 10.2 g/dl (12.0-15.5); MEAN CORPUSCULAR HEMOGLOBIN 32.5 pg (27.0-33.0); MEAN CORPUSCULAR HGB CONC 33.1 g/dl (32.0-36.5); MEAN CORPUSCULAR VOLUME 98.1 fl (80.0-96.0); PLATELET COUNT, AUTOMATED 249 10^3/uL (150-450); RED BLOOD COUNT 3.14 10^6/uL (4.00-5.40); WHITE BLOOD COUNT 9.2 10^3/uL (4.0-10.0)
[2021-08-31 07:51] LABS: BLOOD UREA NITROGEN 13 MG/DL (7-18); CALCIUM LEVEL 8.4 MG/DL (8.8-10.2); CARBON DIOXIDE LEVEL 23 MEQ/L (21-32); CHLORIDE LEVEL 109 MEQ/L (98-107); CREATININE FOR GFR 0.78 MG/DL (0.55-1.30); GLOMERULAR FILTRATION RATE > 60.0 (>32); GLUCOSE, FASTING 101 MG/DL (70-100); POTASSIUM SERUM 3.5 MEQ/L (3.5-5.1); SODIUM LEVEL 139 MEQ/L (136-145)
[2021-08-31] MEDS: oxyBUTYnin *DITROPAN XL* 5 MG TABCR PO SCH (08:10)
[2021-08-31] MEDS: ASPIRIN 81MG ENTERIC TABLET PO SCH (08:10)
[2021-08-31] MEDS: PANTOPRAZOLE 40MG TAB (PROTONIX) PO SCH (08:10)
[2021-08-31] MEDS: ACETAMINOPHEN 500 MG TAB PO SCH ×2 (08:10→21:32)
[2021-08-31] MEDS: DULoxetine 30MG CAPSULE (CYMBALTA) PO SCH (08:10)
[2021-08-31] MEDS: DOCUSATE SODIUM 100MG CAPSULE PO SCH ×2 (08:10→21:32)
[2021-08-31 08:23] LABS: ATYPICAL LYMPH 4 % (0-5); EOSINOPHILS 4 % (0-3); LYMPHOCYTES 12 % (16-44); MONOCYTES 12 % (0-5); NEUTROPHILS 66 % (28-66)
[2021-08-31 08:24] LABS: PLATELET ESTIMATE NORMAL (NORMAL)
--- NOTE | 2021-08-31 13:19 | IPNPDOC ---
Subjective Date Seen The patient was seen on 08/31/21. Subjective Chief Complaint/HPI Patient sitting up in chair. Reports that she is feeling better than before however still has shortness of breath and wheezing. No acute events overnight. Objective Physical Examination General Exam: Positive: Alert, Cooperative, No Acute Distress Eye Exam: Positive: PERRLA, Conjunctiva & lids normal, EOMI; Negative: Sclera icteric ENT Exam: Positive: Atraumatic, Pharynx Normal, Other ENT (Dry mucous membrane) Neck Exam: Positive: Supple; Negative: JVD, thyromegaly Chest Exam: Positive: Rhonchi, Wheezing, Other (Crackles at the right base) Heart Exam: Positive: Rate Normal, Regular Rhythm, Normal S1, Normal S2; Negative: Murmurs, Rubs Abdomen Exam: Positive: Normal bowel sounds, Soft; Negative: Tenderness Extremity Exam: Negative: Clubbing, Cyanosis, Edema Skin Exam: Positive: Other skin issue (Abrasions on the right leg) Psych Exam: Positive: Other; Negative: Memory Intact Assessment /Plan Assessment 80-year-old female resident of [facility] living with past medical history of CVA, cognitive impairment after stroke, CHINO untreated, asthma, orthostatic hypotension, vertigo, hypertension, hypothyroid, was brought into the emergency room for 4 episodes of falling in the past 24 hours with possible loss of consciousness during 1 of these falls. Patient complained of being weak fatigued for the past 2 days. She also complained of a dry cough without any phlegm production. Denied any sore throat runny nose. Denied any nausea vomiting or diarrhea. She also complained of some shortness of breath to EMS though she did not mention about that to me but I noted that she was mildly tachypneic at about 22/min. She has a low-grade fever of 100.1 in the ED. chest x-ray does not show any consolidation or infiltrates. She is being admitted for evaluation of syncope and falls with possible underlying infection. Syncope and fall This is likely due to weakness and malaise I feel patient may be having an infection likely viral however cannot rule out bacterial infection. Possible the pneumonia Patient has a cough, low-grade fever, tachypnea and was briefly hypoxic with EMS, has a WBC> 12 The chest x-ray does not show any infiltrate or consolidation but I would still treat the patient for likely developing pneumonia. Procalcitonin is not elevated so this may be a viral infection however will empirically cover for with antibiotic for bacteremia Blood cultures are negative will de-escalate antibiotics. Will give albuterol 3 times daily for bronchospasm probably related infection Questionable episode facial droop and garbled speech will place on q4 hours neuro checks. No acute events overnight HTN losartan continued. HLD statin continue CHINO on home CPAP Does not use her CPAP Hypothyroidism Home levothyroxine continued RLE and right foot neuropathy Home gabapentin continued Depression/back pain home duloxetine continued H/o CVA, 2015/with cognitive impairment Home clopidogrel continued; H/o GERD ppi continued Presumed bladder spasms oxybutynin continued Plan/VTE VTE Prophylaxis Ordered?: Yes VS, I&O, 24H, Fishbone Vital Signs/I&O Vital Signs Date Time Temp Pulse Resp B/P (MAP) Pulse Ox O2 Delivery O2 Flow Rate FiO2 08/31/21 11:57 140/77 08/31/21 06:00 98.7 77 19 96 Room Air 08/30/21 08:00 2.0 I&O- Last 24 Hours up to 6 AM 08/31/21 05:59 Intake Total 1040 ml Output Total 650 ml Balance 390 ml Laboratory Data 24H LABS Laboratory Tests 2 08/31/21 07:05: Neutrophils (%) (Auto) , Nucleated Red Blood Cells % (auto) 0.0, Neutrophils 66, Band Neutrophils 2, Lymphocytes (Manual) 12L, Monocytes (Manual) 12H, Eosinophils (Manual) 4H, Atypical Lymphocytes 4, Macrocytosis 1+, Platelet Estimate NORMAL, Anion Gap 7L, Glomerular Filtration Rate > 60.0, Calcium Level 8.4L CBC/BMP Laboratory Tests 08/31/21 07:05 Microbiology Microbiology 08/29/21 Blood Culture - Preliminary, Resulted No Growth after 48 hours. All Specime... 08/29/21 Respiratory Virus Panel (PCR) ([facility]) - Final, Complete 08/29/21 Blood Culture - Preliminary, Resulted No Growth after 48 hours. All Specime... Montserrat Moran MD Aug 31, 2021 13:19
[2021-08-31] MEDS ORDERED: ALBUTEROL SULFATE 2.5 MG/0.5 ML INH NEB SOLN NEB ONE (13:35)
[2021-08-31 14:00] VITALS: BP 136/75
[2021-08-31] MEDS: ALBUTEROL SULFATE 2.5 MG/0.5 ML INH NEB SOLN NEB SCH (15:16)
[2021-08-31] MEDS: SIMVASTATIN 20 MG TAB PO SCH (21:32)
[2021-08-31] MEDS: GABAPENTIN 400MG CAP PO SCH (21:32)
[2021-08-31] MEDS: LOSARTAN 50MG TABLET PO SCH (21:33)
[2021-08-31 22:00] VITALS: BP 169/93
[2021-09-01] MEDS: PIPERACILLIN/TAZOBACTAM SOD 3.375 GM in D5W MINI-BAG PLUS 50 ML IV SCH ×2 (00:05→05:49)
[2021-09-01] MEDS: **hydrALAZINE HCL** 25 MG TAB PO SCH ×4 (00:09→18:08)
[2021-09-01] MEDS: ALBUTEROL SULFATE 2.5 MG/0.5 ML INH NEB SOLN NEB SCH ×3 (00:51→15:41)
[2021-09-01] MEDS: LEVOTHYROXINE 125MCG TABLET (0.125MG) PO SCH (05:48)
[2021-09-01] MEDS: LevoFLOXacin 750 MG TABLET PO SCH (05:49)
[2021-09-01 06:00] VITALS: BP 160/86
[2021-09-01 08:23] LABS: BASO % 0.5 % (0.0-1.0); EOS # 0.5 10^3/uL (0.0-0.5); EOS % 6.3 % (0.0-3.0); HEMATOCRIT 33.1 % (36.0-47.0); HEMOGLOBIN 11.1 g/dl (12.0-15.5); LYMPH # 2.6 10^3/uL (1.5-5.0); LYMPH % 32.5 % (24.0-44.0); MEAN CORPUSCULAR HEMOGLOBIN 32.7 pg (27.0-33.0); MEAN CORPUSCULAR HGB CONC 33.5 g/dl (32.0-36.5); MEAN CORPUSCULAR VOLUME 97.6 fl (80.0-96.0); MONO % 12.4 % (2.0-8.0); NEUTROPHILS # 3.8 10^3/uL (1.5-8.5); PLATELET COUNT, AUTOMATED 284 10^3/uL (150-450); RED BLOOD COUNT 3.39 10^6/uL (4.00-5.40)
[2021-09-01 08:40] LABS: BLOOD UREA NITROGEN 12 MG/DL (7-18); CALCIUM LEVEL 9.1 MG/DL (8.8-10.2); CARBON DIOXIDE LEVEL 25 MEQ/L (21-32); CHLORIDE LEVEL 106 MEQ/L (98-107); CREATININE FOR GFR 0.81 MG/DL (0.55-1.30); GLOMERULAR FILTRATION RATE > 60.0 (>32); GLUCOSE, FASTING 98 MG/DL (70-100); POTASSIUM SERUM 3.5 MEQ/L (3.5-5.1); SODIUM LEVEL 138 MEQ/L (136-145)
[2021-09-01] MEDS: ASPIRIN 81MG ENTERIC TABLET PO SCH (09:40)
[2021-09-01] MEDS: ACETAMINOPHEN 500 MG TAB PO SCH ×2 (09:40→20:59)
[2021-09-01] MEDS: PANTOPRAZOLE 40MG TAB (PROTONIX) PO SCH (09:40)
[2021-09-01] MEDS: oxyBUTYnin *DITROPAN XL* 5 MG TABCR PO SCH (09:40)
[2021-09-01] MEDS: DOCUSATE SODIUM 100MG CAPSULE PO SCH ×2 (09:40→20:58)
[2021-09-01] MEDS: DULoxetine 30MG CAPSULE (CYMBALTA) PO SCH (09:41)
[2021-09-01 13:20] VITALS: BP 155/80
--- NOTE | 2021-09-01 17:41 | IPNPDOC ---
Text Note Date of Service The patient was seen on 09/01/21. NOTE Subjective: Patient is an 80-year-old female who was initially sent to the [facility] after syncopized in. Patient states that she has been feeling much better. Patient feels well and will work with therapy. Patient does not have any complaints today. Review of systems: General: Patient denies fevers HEENT: Patient denies headaches Cardiovascular: Patient denies chest pain Respiratory: Patient denies shortness of breath, cough GI: Patient denies abdominal pain, nausea, vomiting, diarrhea : Patient denies increased frequency or pain with urination Extremities: Patient denies swelling or pain in extremities Neurological: Patient denies numbness or tingling in legs Physical exam: Vitals: See below General: Alert and oriented female patient was sitting in the bedside chair and walked in. Patient did not appear to be in any acute distress. HEENT: Normocephalic, atraumatic, moist mucous membranes. Neck: No lymphadenopathy or thyromegaly Cardiac: Regular rate and rhythm, no murmurs, normal S1, normal S2 Pulm: Clear to auscultation bilaterally. No wheezes, rhonchi, rales Abd: Nondistended, nontender to palpation, normal bowel sounds Ext: No edema bilateral lower extremities Labs: See below Imaging: No new imaging is been performed Assessment/plan: 81-year-old female is a resident of [facility] living with a past medical history of CVA, cognitive impairment after stroke, CHINO untreated, asthma, orthostatic hypotension, vertigo, hypertension, hypothyroidism who was brought to the emergency room after 4 episodes of falling in the past 24 hours with possible loss of consciousness during 1 of these falls. 1. Syncope and fall. Likely due to weakness malaise. Patient may have a viral infection however, the patient is feeling much better and has been working with physical therapy. 2. Possible pneumonia. Patient had a cough, low-grade fever and tachypnea. X- ray does not show any infiltrate or consolidation. Procalcitonin was not elevated this may be viral infection. Patient was initially started on antibiotics with these were deescalated. 3. Questionable episode of facial droop and garbled speech. Patient was placed on every 4 neurochecks and had no acute events overnight. 4. Hypertension. Continue losartan. 5. Hyperlipidemia. Continue statin therapy. 6. Obstructive sleep apnea on home CPAP. Patient does not use her CPAP. 7. Hypothyroidism. Continue home levothyroxine. 8. Peripheral neuropathy. Continue home gabapentin. 9. Depression. Continue home duloxetine. 10. History of CVA. Continue clopidogrel. 11. History of GERD. Continue PPI. DVT Prophylaxis: Yamilka Disposition: Patient has been made ALC status. Possible discharge to [facility] living tomorrow. VS,Alexsandere, I+O VS, Adielbone, I+O Laboratory Tests 09/01/21 07:59 Vital Signs Date Time Temp Pulse Resp B/P (MAP) Pulse Ox O2 Delivery O2 Flow Rate FiO2 09/01/21 13:20 81 20 155/80 (105) Room Air 09/01/21 06:00 98.0 94 08/30/21 08:00 2.0 I&O- Last 24 Hours up to 6 AM 09/01/21 06:00 Intake Total 1290 ml Output Total 0 ml Balance 1290 ml RENO VANESSA DO Sep 01, 2021 17:41
[2021-09-01] MEDS: CLOPIDOGREL 75 MG TAB PO SCH (18:08)
[2021-09-01] MEDS: GABAPENTIN 400MG CAP PO SCH (20:59)
[2021-09-01] MEDS: LOSARTAN 50MG TABLET PO SCH (21:02)
[2021-09-01] MEDS: SIMVASTATIN 20 MG TAB PO SCH (21:02)
[2021-09-02] MEDS: ALBUTEROL SULFATE 2.5 MG/0.5 ML INH NEB SOLN NEB SCH ×2 (00:08→07:56)
[2021-09-02] MEDS: **hydrALAZINE HCL** 25 MG TAB PO SCH ×3 (01:37→12:41)
[2021-09-02 06:00] VITALS: BP 151/68
[2021-09-02] MEDS: LEVOTHYROXINE 125MCG TABLET (0.125MG) PO SCH (06:09)
[2021-09-02] MEDS: LevoFLOXacin 750 MG TABLET PO SCH (06:09)
[2021-09-02 06:55] LABS: BASO # 0.1 10^3/uL (0.0-0.2); BASO % 0.9 % (0.0-1.0); EOS # 0.5 10^3/uL (0.0-0.5); EOS % 6.9 % (0.0-3.0); HEMOGLOBIN 10.8 g/dl (12.0-15.5); LYMPH % 29.6 % (24.0-44.0); MEAN CORPUSCULAR HEMOGLOBIN 32.6 pg (27.0-33.0); MEAN CORPUSCULAR HGB CONC 33.8 g/dl (32.0-36.5); MEAN CORPUSCULAR VOLUME 96.7 fl (80.0-96.0); MONO % 15.3 % (2.0-8.0); NEUTROPHILS # 3.1 10^3/uL (1.5-8.5); NEUTROPHILS % 46.5 % (36.0-66.0); PLATELET COUNT, AUTOMATED 326 10^3/uL (150-450); RED BLOOD COUNT 3.31 10^6/uL (4.00-5.40); WHITE BLOOD COUNT 6.7 10^3/uL (4.0-10.0)
[2021-09-02 07:12] LABS: BLOOD UREA NITROGEN 12 MG/DL (7-18); CALCIUM LEVEL 9.3 MG/DL (8.8-10.2); CARBON DIOXIDE LEVEL 27 MEQ/L (21-32); CHLORIDE LEVEL 107 MEQ/L (98-107); CREATININE FOR GFR 0.88 MG/DL (0.55-1.30); GLOMERULAR FILTRATION RATE > 60.0 (>32); GLUCOSE, FASTING 87 MG/DL (70-100); SODIUM LEVEL 138 MEQ/L (136-145)
[2021-09-02] MEDS: ASPIRIN 81MG ENTERIC TABLET PO SCH (08:58)
[2021-09-02] MEDS: PANTOPRAZOLE 40MG TAB (PROTONIX) PO SCH (08:58)
[2021-09-02] MEDS: DOCUSATE SODIUM 100MG CAPSULE PO SCH (08:58)
[2021-09-02] MEDS: DULoxetine 30MG CAPSULE (CYMBALTA) PO SCH (08:58)
[2021-09-02] MEDS: ACETAMINOPHEN 500 MG TAB PO SCH (08:59)
[2021-09-02] MEDS: oxyBUTYnin *DITROPAN XL* 5 MG TABCR PO SCH (08:59)
[2021-09-02 12:41] VITALS: BP 178/94
--- NOTE | 2021-09-02 19:06 | DS.PDOC ---
Discharge Summary General Date of Admission Aug 29, 2021 at 14:01 Date of Discharge 09/02/2021 Primary Care Physician: Yakelin Thapa Attending Physician: RENO VANESSA DO Discharge Summary PROCEDURES PERFORMED DURING STAY: None. ADMITTING DIAGNOSES: 1. Syncope and fall. 2. Possible pneumonia 3. Hypertension 4. Hyperlipidemia 5. CHINO 6. Hypothyroidism 7. Right lower extremity and right foot neuropathy 8. Depression/back pain 9. History of CVA 10. History of GERD 11. Presumed bladder spasms. DISCHARGE DIAGNOSES: 1. Syncope and fall. 2. Possible pneumonia 3. Questionable episode of facial droop gross patient 4. Hypertension 5. Hyperlipidemia 6. CHINO 7. Hypothyroidism 9. Peripheral neuropathy 9. Depression 10. History of CVA 11. History of GERD COMPLICATIONS/CHIEF COMPLAINT: Fall,Syncope. HISTORY OF PRESENT ILLNESS: Patient is an 80-year-old female who is a resident [facility] assisted living with past medical history of CVA, cognitive impairment after stroke, CHINO untreated, asthma, orthostatic hypotension, vertigo, hypertension, hypothyroidism was brought to the emergency room for 4 episodes of falling in the past 24 hours a possible loss of consciousness during 1 of these falls. Patient plan to being weak for the past 2 days. Patient was complaint of dry cough without phlegm production. Denies any sore throat or runny nose. Denies any nausea vomiting or diarrhea. Patient also complains of shortness of breath to EMS though should not mention this to the admitting provider. Patient is mildly tachypneic at about 22 breaths/min. Had a low-grade fever 100.1 in the ED. Her white blood cells of 5.6. Her urinary analysis was clean. Chest x-ray did not show any consolidation or infiltrates. Patient was admitted for evaluation of syncope and falls. HOSPITAL COURSE: Patient did have a low-grade fever on the first night of admission of 100.6. She continued to be very weak and fatigued. Patient also had an episode of possible garbled speech and the initial admitting provider was called to evaluate the patient. She did not have any weakness in her extremities nor was any pronator drift and the admitting provider did not feel like there was any neurological event. She was placed on every 4 neurochecks. Patient was initially started on IV Zosyn for possible pneumonia however, the patient's procalcitonin was not elevated and chest x-ray did not show any infiltrates. Patient was initially continue with the treatment of Zosyn which was changed to levofloxacin however, these were discontinued prior to patient's discharge as all of her cultures came back negative. Patient continued to work in physical therapy and improved and was ready for discharge on 09/01/2021 however, she was unable to be discharged to assisted living on that date. Patient was ready for discharge and was discharged from the hospital on 09/02/2021. DISCHARGE MEDICATIONS: Please see below. ALLERGIES: Please see below. PHYSICAL EXAMINATION ON DISCHARGE: VITAL SIGNS: Please see below. General: Alert and oriented female patient who was sitting in bedside chair and I walked in. Patient did not appear to be in any acute distress. HEENT: Normocephalic, atraumatic, moist mucous membranes. Neck: No lymphadenopathy or thyromegaly Cardiac: Regular rate and rhythm, no murmurs, normal S1, normal S2 Pulm: Clear to auscultation bilaterally. No wheezes, rhonchi, rales Abd: Nondistended, nontender to palpation, normal bowel sounds Ext: No edema bilateral lower extremities LABORATORY DATA: Please see below. IMAGING: CT of the head performed without contrast on 08/29/2021 is reported to show no acute hemorrhagic or calvarial fracture. Chest x-ray performed on 08/29/2021 is reported to show no acute findings. Lumbar spine x-ray performed on is reported to show no fracture PROGNOSIS: Fair ACTIVITY: As tolerated. DIET: Mechanical soft DISCHARGE PLAN: Discharge to [facility] living DISPOSITION: [facility]. DISCHARGE INSTRUCTIONS: 1. Follow-up with primary care provider within 3 to 5 days discharge. 2. Continue work with physical therapy at assisted living 3. Return to the emergency department symptoms worsen ITEMS TO FOLLOWUP ON ON OUTPATIENT: 1. None. DISCHARGE CONDITION: Stable. TIME SPENT ON DISCHARGE: 35 minutes. Vital Signs/I&Os Vital Signs Date Time Temp Pulse Resp B/P (MAP) Pulse Ox O2 Delivery O2 Flow Rate FiO2 09/02/21 12:41 178/94 09/02/21 06:00 98.1 95 16 91 Room Air 08/30/21 08:00 2.0 I&O- Last 24 Hours up to 6 AM 09/02/21 06:00 Intake Total 1730 ml Balance 1730 ml Laboratory Data Labs 24H Laboratory Tests 2 09/02/21 06:14: Immature Granulocyte % (Auto) 0.8, Neutrophils (%) (Auto) 46.5, Lymphocytes (%) (Auto) 29.6, Monocytes (%) (Auto) 15.3H, Eosinophils (%) (Auto) 6.9H, Basophils (%) (Auto) 0.9, Neutrophils # (Auto) 3.1, Lymphocytes # (Auto) 2.0, Monocytes # (Auto) 1.0H, Eosinophils # (Auto) 0.5, Basophils # (Auto) 0.1, Nucleated Red Blood Cells % (auto) 0.0, Anion Gap 4L, Glomerular Filtration Rate > 60.0, Calcium Level 9.3 09/02/21 09:06: Coronavirus (COVID-19)(PCR) NEGATIVE, Methicillin-Resist S.aureus DNA PCR NOT DETECTED CBC/BMP Laboratory Tests 09/02/21 06:14 Microbiology Microbiology 08/29/21 Blood Culture - Preliminary, Resulted No Growth after 72 hours. All specime... 08/29/21 Respiratory Virus Panel (PCR) ([facility]) - Final, Complete 08/29/21 Blood Culture - Preliminary, Resulted No Growth after 72 hours. All specime... Discharge Medications Scheduled Alendronate Sodium (Alendronate Sodium) 70 Mg Tablet, 70 MG PO 1XWK, (Reported) SUNDAYS Aspirin (Aspirin EC) 81 Mg Tablet.dr, 81 MG PO DAILY, (Reported) Calcium Carbonate (Tums) 500 Mg Chw, 500 MG PO BID, (Reported) Carboxymethylcellulose Sodium (Refresh Tears) 0.5 % Johan, 1 DROP OU TID, (Reported) Cholecalciferol (Vitamin D3) (Vitamin D3) 1,000 Unit Tablet, 2,000 UNITS PO BLUE LY, (Reported) @ 1600 Clopidogrel Bisulfate (Plavix) 75 Mg Tablet, 75 MG PO DAILY, (Reported) @1700 Cyclosporine (Restasis) 0.05 % Emu, 1 DROP OU BID, (Reported) Duloxetine Hcl (Duloxetine HCl) 60 Mg Cap, 60 MG PO DAILY, (Reported) TAKES WITH 30MG FOR TOTAL DOSE 90MG Duloxetine Hcl (Duloxetine HCl) 30 Mg Capsule.dr, 30 MG PO DAILY, (Reported) TAKES WITH 60MG FOR TOTAL DOSE 90MG Gabapentin (Gabapentin) 400 Mg Cap, 400 MG PO QHS, (Reported) Ipratropium [place] (Ipratropium [place]) 15 Ml [place], 2 SPRAY NARES BID, (Reported) Levothyroxine Sodium (Levoxyl) 125 Mcg Tab, 62.5 MCG PO DAILY, (Reported) Loratadine (Loratadine) 10 Mg Tab, 10 MG PO DAILY, (Reported) Losartan Potassium (Losartan Potassium) 50 Mg Tab, 50 MG PO QHS, (Reported) Multivitamins (Thera M Plus Tablet) 1 Each Tablet, 1 TAB PO DAILY, (Reported) Omeprazole (Omeprazole) 40 Mg Capsule.dr, 40 MG PO DAILY, (Reported) Oxybutynin Chloride (Oxybutynin Chloride ER) 5 Mg Tab, 5 MG PO DAILY, (Reported) Psyllium Husk/Aspartame (Metamucil Fiber Singles Packet) 51.7 % Kevin, 3.4 GRAM PO DAILY, (Reported) Simvastatin (Zocor) 20 Mg Tab, 20 MG PO QHS, (Reported) Vit A/Vit C/Vit E/Zinc/Copper (Preservision Areds Tablet) 1 Each Tablet, 2 TAB PO BID, (Reported) 0900, 1600 Scheduled PRN Acetaminophen (Acetaminophen 8 Hour) 650 Mg Tablet.er, 650 MG PO Q8H PRN for PAIN, (Reported) Albuterol Sulfate (Ventolin Hfa) 18 Gm Hfa.aer.ad, 2 PUFFS INH QID PRN for SOB/WHEEZING, (Reported) Docusate Sodium (Colace) 100 Mg Cap, 100 MG PO BID PRN for CONSTIPATION, (Reported) Guaifenesin/Dextromethorphan (Guaifenesin Dm Syrup) 1 Syp Syp, 10 ML PO Q4H PRN for COUGH, (Reported) Lidocaine HCl (Aspercreme) 4 % Cre, 1 DOSE TOP Q6H PRN for PAIN, (Reported) APPLY TO AREAS OF PAIN Magnesium Hydroxide (Milk of Magnesia) 400 Mg/5 Ml Oral.susp, 2,400 MG PO DAILY PRN for CONSTIPATION, (Reported) Meclizine HCl (Meclizine HCl) 25 Mg Tab, 25 MG PO Q6H PRN for DIZZINESS, (Reported) Mupirocin (Mupirocin) 1 Dose/30 Gm Cream, 1 APPLIC TOP BID PRN for RASH, (Reported) Nystatin (Nystatin Powder) 100,000 Unit/Gm Pow, 1 DOSE TOP BID PRN for RASH, (R eported) APPLY TO AFFECTED AREA UNDER BREASTS AND IN GROIN AREA Phenyleph/Pramoxin/Glycr/W.pet (Preparation H Cream) 1 Cre Cre, 1 DOSE SC QID PRN for HEMORRHOIDS, (Reported) Saliva Substitute Combo No.9 (Biotene) 1 Liq Liq, 1 DOSE PO QID PRN for DRY MOUTH, (Reported) Simethicone (Simethicone) 80 Mg Tab.chew, 80 MG PO QID PRN for GAS PAIN, (Reported) Sodium Chloride (Saline Nasal [place]) 88 Ml [place], 2 SPRAYS NA Q3HP PRN for NOSEBLEED OR DRY NOSE, (Reported) Allergies Coded Allergies: TAPE (Verified Adverse Reaction, Intermediate, RED AREA, TAKES SKIN OFF, 07/23/15) RENO VANESSA DO Sep 02, 2021 19:06
== END 2021-09-02 14:05 | DRG 312 ==
LOC: EDBD 09:53 → M ED 09:53 → M ED INP 14:01 → M PCU 18:14 → M MSPAV 08-30 16:55
PROVIDERS: ADMIT Internal Medicine Nephrology; ATTEND Family Medicine
DX: R55 Syncope and collapse (principal); J18.9 Pneumonia, unspecified organism; I10 Essential (primary) hypertension; G47.33 Obstructive sleep apnea (adult) (pediatric); K21.9 Gastro-esophageal reflux disease without esophagitis; Z86.73 Personal history of transient ischemic attack (TIA), and cerebral infarction without residual deficits; E78.5 Hyperlipidemia, unspecified; E03.9 Hypothyroidism, unspecified; I73.9 Peripheral vascular disease, unspecified; J45.909 Unspecified asthma, uncomplicated; R29.6 Repeated falls; Z79.899 Other long term (current) drug therapy; Z79.82 Long term (current) use of aspirin; Z87.891 Personal history of nicotine dependence; F32.9 Major depressive disorder, single episode, unspecified

== ENCOUNTER → 2022-01-13 | Outpatient (REF) | payer MEDICARE, MEDICAID ==
[~2022-01-13] MED LIST changes: +AYR0.65S; +CEROTAB2 PO; -D31000TA2 PO; +IPRA3SP; +IPRA6SP NARES; -LISI-898 PO; +LISI5TAB11 PO; +LOSA50TA28 PO; -LOSA50TA88 PO; +META28PO PO; +OMEP40CA5 PO; +SINUPOW7; +VITA100093 PO; +VITA200030 PO
[2022-01-13 12:14] LABS: APPEARANCE, URINE HAZY (CLEAR); BACTERIA, URINE AUTO NEGATIVE (NEGATIVE); BILIRUBIN, URINE AUTO NEGATIVE (NEGATIVE); BLOOD, URINE BLOOD NEGATIVE (NEGATIVE); COLOR, URINE YELLOW (YELLOW); GLUCOSE, URINE (UA) AUTO NEGATIVE (NEGATIVE); KETONE, URINE AUTO NEGATIVE (NEGATIVE); LEUKOCYTE ESTERASE, URINE AUTO 3+ (NEGATIVE); MUCUS, URINE SMALL (NEGATIVE); NITRITE, URINE AUTO NEGATIVE (NEGATIVE); PROTEIN, URINE AUTO NEGATIVE (NEGATIVE); RBC, URINE AUTO 2 /HPF (0-3); SQUAMOUS EPITHELIAL CELL UR AU 0 /HPF (0-6); UROBILINOGEN, URINE AUTO 0.2 mg/dL (0.0-2.0); WBC, URINE AUTO 98 /HPF (0-3)
== END ==
PROVIDERS: ATTEND Internal Medicine
DX: N39.0 Urinary tract infection, site not specified (principal)

== ENCOUNTER → 2022-05-04 | Outpatient (REF) | payer MEDICARE, MEDICAID ==
[2022-05-06 12:07] LABS: ANTINUCLEAR ANTIBODIES DIRECT Negative (Negative)
== END ==
LOC: M LAB REF 12:07
PROVIDERS: ATTEND Internal Medicine
DX: M25.50 Pain in unspecified joint (principal)

== ENCOUNTER → 2022-06-02 | Outpatient (REF) | payer MEDICARE, MEDICAID | LOC: M LAB REF 11:51 | PROVIDERS: ATTEND Internal Medicine | DX: M19.90 Unspecified osteoarthritis, unspecified site (principal); N39.0 Urinary tract infection, site not specified ==

== ENCOUNTER → 2022-06-07 | Outpatient (CLI) | payer MEDICARE, MEDICAID ==
[~2022-06-07] MED LIST changes: +SIMV-253 PO; -ZOCO20TA PO
== END ==
LOC: M RAD 09:32
PROVIDERS: ATTEND Internal Medicine
DX: R29.6 Repeated falls (principal)

== ENCOUNTER → 2022-06-25 | Outpatient (REF) ==
[~2022-06-25] MED LIST changes: +ACE65ERTAB PO; +BUPR-364 PO; -IPRA3SP; +IPRA3SP NARES; +MELA3TAB70 PO; +META28.32 PO; +OMEP1CAP73 PO; -SINUPOW7; +SINUPOW7 NARES
== END ==
PROVIDERS: ATTEND Internal Medicine
DX: Z20.822 Contact with and (suspected) exposure to COVID-19 (principal)

== ENCOUNTER 2022-06-27 06:25 | Emergency (ER) | payer MEDICARE, MEDICAID ==
[~2022-06-27 06:25] MED LIST changes: -ACE65ERTAB PO; -BUPR-364 PO; -MELA3TAB70 PO; -META28.32 PO; -OMEP1CAP73 PO
[2022-06-27 07:42] LABS: BASO % 0.7 % (0.0-1.0); EOS # 0.4 10^3/uL (0.0-0.5); EOS % 6.7 % (0.0-3.0); HEMATOCRIT 33.8 % (36.0-47.0); HEMOGLOBIN 11.4 g/dl (12.0-15.5); LYMPH # 1.4 10^3/uL (1.5-5.0); LYMPH % 24.6 % (24.0-44.0); MEAN CORPUSCULAR HEMOGLOBIN 33.7 pg (27.0-33.0); MEAN CORPUSCULAR HGB CONC 33.7 g/dl (32.0-36.5); MONO # 0.7 10^3/uL (0.0-0.8); MONO % 12.6 % (2.0-8.0); NEUTROPHILS % 55.2 % (36.0-66.0); PLATELET COUNT, AUTOMATED 299 10^3/uL (150-450); RED BLOOD COUNT 3.38 10^6/uL (4.00-5.40); WHITE BLOOD COUNT 5.5 10^3/uL (4.0-10.0)
[2022-06-27 07:53] LABS: INR 1.02; PROTHROMBIN TIME 13.8 SECONDS (12.7-14.5)
[2022-06-27] MEDS ORDERED: ACETAMINOPHEN TAB 650MG DOSE (2X325MG) PO ONE (07:55)
[2022-06-27 08:13] LABS: RSV AMPLIFICATION NEGATIVE (NEGATIVE)
[2022-06-27] MEDS ORDERED: amLODIPine 5 MG TAB PO ONE (08:15)
[2022-06-27 08:25] LABS: CK-MB VALUE MASS 2.4 NG/ML (<3.6); MB/CK RELATIVE INDEX 3.33 (< OR =4)
[2022-06-27 08:30] LABS: BLOOD UREA NITROGEN 19 MG/DL (7-18); CALCIUM LEVEL 9.7 MG/DL (8.8-10.2); CARBON DIOXIDE LEVEL 26 MEQ/L (21-32); CHLORIDE LEVEL 106 MEQ/L (98-107); CREATININE FOR GFR 0.74 MG/DL (0.55-1.30); ETHYL ALCOHOL (ETHANOL) 0.003 % (0.000-0.010); FREE T4 0.79 NG/DL (0.76-1.46); GLOMERULAR FILTRATION RATE > 60.0 (>32); GLUCOSE, FASTING 97 MG/DL (70-100); MAGNESIUM LEVEL 2.2 MG/DL (1.8-2.4); POTASSIUM SERUM 3.9 MEQ/L (3.5-5.1); SODIUM LEVEL 137 MEQ/L (136-145)
[2022-06-27 08:31] VITALS: BP 189/89
[2022-06-27] MEDS ORDERED: PRESCAP PO (08:46)
[2022-06-27] MEDS ORDERED: BUPR-364 PO (08:46)
[2022-06-27] MEDS ORDERED: ACE65ERTAB PO (08:46)
[2022-06-27] MEDS ORDERED: OMEP1CAP73 PO (08:46)
[2022-06-27] MEDS ORDERED: MELA3TAB70 PO (08:46)
[2022-06-27] MEDS ORDERED: DULO1CAP5 PO (08:46)
[2022-06-27] MEDS ORDERED: META28.32 PO (08:46)
[2022-06-27] MEDS ORDERED: HOME MED LIST COMPLETE! XX SCH (08:50)
[2022-06-27 09:00] VITALS: BP 168/72
== END 2022-06-27 09:10 | disposition home or self-care (01) ==
LOC: EDBD 06:25 → M ED 06:25
DX: R26.9 Unspecified abnormalities of gait and mobility (principal); Z91.81 History of falling; F32.A Depression, unspecified; Z86.73 Personal history of transient ischemic attack (TIA), and cerebral infarction without residual deficits; Z87.891 Personal history of nicotine dependence; Z86.16 Personal history of COVID-19; Z91.048 Other nonmedicinal substance allergy status; Z79.899 Other long term (current) drug therapy

== ENCOUNTER 2022-07-02 10:12 | Emergency (ER) | payer MEDICARE, MEDICAID ==
[2022-07-02 10:22] VITALS: BP 182/90
[2022-07-02] MEDS ORDERED: NORCO, ANEXSIA 5/325MG TABLET (HYDROcodone/ACETAMINOPHEN) PO ONE (11:30)
== END 2022-07-02 12:28 | disposition home or self-care (01) ==
LOC: M ED 10:12
DX: S76.012A Strain of muscle, fascia and tendon of left hip, initial encounter (principal); R53.1 Weakness; W01.0XXA Fall on same level from slipping, tripping and stumbling without subsequent striking against object, initial encounter; I10 Essential (primary) hypertension; M54.50 Low back pain, unspecified; K21.9 Gastro-esophageal reflux disease without esophagitis; F41.9 Anxiety disorder, unspecified; J45.909 Unspecified asthma, uncomplicated; Z86.73 Personal history of transient ischemic attack (TIA), and cerebral infarction without residual deficits; Z79.01 Long term (current) use of anticoagulants; Z79.811 Long term (current) use of aromatase inhibitors; Z79.899 Other long term (current) drug therapy; Y99.9 Unspecified external cause status; Y92.9 Unspecified place or not applicable; Y93.9 Activity, unspecified

== ENCOUNTER → 2022-07-02 | Outpatient (CLI) | payer MEDICARE, MEDICAID ==
[~2022-07-02] MED LIST changes: +ACE65ERTAB PO; +BUPR-364 PO; +MELA3TAB70 PO; +META28.32 PO; +OMEP1CAP73 PO
== END ==
LOC: M PLARAD 13:04
PROVIDERS: ATTEND Internal Medicine
DX: I63.9 Cerebral infarction, unspecified (principal); M48.02 Spinal stenosis, cervical region

== ENCOUNTER → 2022-07-21 | Outpatient (REF) | payer MEDICARE, MEDICAID ==
[2022-07-22 11:01] LABS: APPEARANCE, URINE MANUAL CLEAR (CLEAR); COLOR, URINE MANUAL YELLOW (YELLOW)
[2022-07-22 11:02] LABS: BILIRUBIN, URINE MANUAL NEGATIVE (NEGATIVE); BLOOD URINE MANUAL NEGATIVE (NEGATIVE); GLUCOSE, URINE (UA) MANUAL NEGATIVE (NEGATIVE); KETONE, URINE MANUAL NEGATIVE (NEGATIVE); LEUKOCYTE ESTERASE, URINE MAN NEGATIVE (NEGATIVE); NITRITE, URINE MANUAL NEGATIVE (NEGATIVE); PROTEIN, URINE MANUAL NEGATIVE (NEGATIVE); SPECIFIC GRAVITY,URINE MANUAL 1.015 (1.002-1.035); UROBILINOGEN, URINE MANUAL NORMAL (NORMAL)
== END ==
PROVIDERS: ATTEND Registered Nurse
DX: R32 Unspecified urinary incontinence (principal)

== ENCOUNTER → 2022-08-02 | Outpatient (REF) ==
[2022-08-02 11:15] LABS: HEMATOCRIT 36.8 % (36.0-47.0); HEMOGLOBIN 12.2 g/dl (12.0-15.5); MEAN CORPUSCULAR HEMOGLOBIN 32.8 pg (27.0-33.0); MEAN CORPUSCULAR HGB CONC 33.2 g/dl (32.0-36.5); MEAN CORPUSCULAR VOLUME 98.9 fl (80.0-96.0); PLATELET COUNT, AUTOMATED 292 10^3/uL (150-450); RED BLOOD COUNT 3.72 10^6/uL (4.00-5.40); WHITE BLOOD COUNT 4.6 10^3/uL (4.0-10.0)
[2022-08-02 11:45] LABS: BLOOD UREA NITROGEN 23 MG/DL (7-18); CALCIUM LEVEL 9.4 MG/DL (8.8-10.2); CARBON DIOXIDE LEVEL 27 MEQ/L (21-32); CHLORIDE LEVEL 106 MEQ/L (98-107); CREATININE FOR GFR 0.89 MG/DL (0.55-1.30); GLOMERULAR FILTRATION RATE > 60.0 (>32); GLUCOSE, FASTING 112 MG/DL (70-100); POTASSIUM SERUM 3.9 MEQ/L (3.5-5.1); SODIUM LEVEL 139 MEQ/L (136-145)
== END ==
PROVIDERS: ATTEND Internal Medicine
DX: I10 Essential (primary) hypertension (principal)

== ENCOUNTER → 2022-08-09 | Outpatient (REF) ==
[2022-08-09 11:19] LABS: HEMATOCRIT 38.1 % (36.0-47.0); HEMOGLOBIN 12.3 g/dl (12.0-15.5); MEAN CORPUSCULAR HEMOGLOBIN 32.7 pg (27.0-33.0); MEAN CORPUSCULAR HGB CONC 32.3 g/dl (32.0-36.5); MEAN CORPUSCULAR VOLUME 101.3 fl (80.0-96.0); PLATELET COUNT, AUTOMATED 302 10^3/uL (150-450); RED BLOOD COUNT 3.76 10^6/uL (4.00-5.40); WHITE BLOOD COUNT 4.7 10^3/uL (4.0-10.0)
[2022-08-09 12:23] LABS: ALBUMIN 3.5 GM/DL (3.2-5.2); BILIRUBIN,DIRECT 0.1 MG/DL (0.0-0.2); BILIRUBIN,TOTAL 0.3 MG/DL (0.2-1.0); CALCIUM LEVEL 8.9 MG/DL (8.8-10.2); CREATININE FOR GFR 1.06 MG/DL (0.55-1.30); GLOMERULAR FILTRATION RATE 52.7 (>32); POTASSIUM SERUM 4.2 MEQ/L (3.5-5.1); THYROID STIMULATING HORMONE 3.84 uIU/ML (0.358-3.740); TOTAL PROTEIN 7.7 GM/DL (6.4-8.2)
== END ==
PROVIDERS: ATTEND Internal Medicine
DX: I10 Essential (primary) hypertension (principal)

== ENCOUNTER → 2022-08-10 | Outpatient (CLI) | payer MEDICARE, MEDICAID ==
[~2022-08-10] MED LIST changes: +PROHANCE 279.3MG/ML 15ML VIAL As Ordered ONE
== END ==
LOC: M RAD 13:33
PROVIDERS: ATTEND Physician Assistant
DX: H81.90 Unspecified disorder of vestibular function, unspecified ear (principal); G31.9 Degenerative disease of nervous system, unspecified
CPT/HCPCS: 70553; A9576

== ENCOUNTER → 2022-08-23 | Outpatient (REF) | payer MEDICARE, MEDICAID ==
[~2022-08-23] MED LIST changes: -PROHANCE 279.3MG/ML 15ML VIAL As Ordered ONE
[2022-08-23 11:10] LABS: BLOOD UREA NITROGEN 20 MG/DL (7-18); CALCIUM LEVEL 9.1 MG/DL (8.8-10.2); CARBON DIOXIDE LEVEL 25 MEQ/L (21-32); CHLORIDE LEVEL 107 MEQ/L (98-107); CREATININE FOR GFR 0.87 MG/DL (0.55-1.30); GLOMERULAR FILTRATION RATE > 60.0 (>32); GLUCOSE, FASTING 109 MG/DL (70-100); POTASSIUM SERUM 3.8 MEQ/L (3.5-5.1); SODIUM LEVEL 138 MEQ/L (136-145)
== END ==
PROVIDERS: ATTEND Internal Medicine
DX: I10 Essential (primary) hypertension (principal)

== ENCOUNTER → 2022-09-01 | Outpatient (REF) | payer MEDICARE, MEDICAID ==
[~2022-09-01] MED LIST changes: +CLOP75TA99 PO; -PLAV1TAB2 PO
[2022-09-01 09:51] LABS: HEMATOCRIT 37.2 % (36.0-47.0); HEMOGLOBIN 12.1 g/dl (12.0-15.5); MEAN CORPUSCULAR HEMOGLOBIN 32.9 pg (27.0-33.0); MEAN CORPUSCULAR HGB CONC 32.5 g/dl (32.0-36.5); MEAN CORPUSCULAR VOLUME 101.1 fl (80.0-96.0); PLATELET COUNT, AUTOMATED 286 10^3/uL (150-450); RED BLOOD COUNT 3.68 10^6/uL (4.00-5.40); WHITE BLOOD COUNT 4.3 10^3/uL (4.0-10.0)
== END ==
PROVIDERS: ATTEND Internal Medicine
DX: R58 Hemorrhage, not elsewhere classified (principal)

== ENCOUNTER → 2022-09-13 | Outpatient (REF) ==
[2022-09-13 10:00] LABS: HEMATOCRIT 36.1 % (36.0-47.0); HEMOGLOBIN 12.3 g/dl (12.0-15.5); MEAN CORPUSCULAR HEMOGLOBIN 33.2 pg (27.0-33.0); MEAN CORPUSCULAR HGB CONC 34.1 g/dl (32.0-36.5); MEAN CORPUSCULAR VOLUME 97.6 fl (80.0-96.0); PLATELET COUNT, AUTOMATED 283 10^3/uL (150-450); WHITE BLOOD COUNT 5.4 10^3/uL (4.0-10.0)
[2022-09-13 10:33] LABS: BLOOD UREA NITROGEN 19 MG/DL (7-18); CALCIUM LEVEL 9.5 MG/DL (8.8-10.2); CARBON DIOXIDE LEVEL 25 MEQ/L (21-32); CHLORIDE LEVEL 105 MEQ/L (98-107); CREATININE FOR GFR 0.77 MG/DL (0.55-1.30); GLOMERULAR FILTRATION RATE > 60.0 (>32); GLUCOSE, FASTING 88 MG/DL (70-100); POTASSIUM SERUM 4.2 MEQ/L (3.5-5.1); SODIUM LEVEL 137 MEQ/L (136-145)
== END ==
PROVIDERS: ATTEND Internal Medicine
DX: I10 Essential (primary) hypertension (principal)

== ENCOUNTER → 2022-09-20 | Outpatient (REF) | payer MEDICARE, MEDICAID ==
[2022-09-20 13:25] LABS: FOLATE > 24.0 NG/ML (>5.4); VITAMIN B12 LEVEL 795 PG/ML (247-911)
== END ==
PROVIDERS: ATTEND Internal Medicine
DX: G31.84 Mild cognitive impairment of uncertain or unknown etiology (principal); E53.8 Deficiency of other specified B group vitamins

== ENCOUNTER → 2022-09-29 | Outpatient (REF) | payer MEDICARE, MEDICAID ==
[2022-09-29 16:55] LABS: FOLATE > 24.00 NG/ML (>5.4); VITAMIN B12 LEVEL 657 PG/ML (211-911)
[2022-10-03 23:07] LABS: VITAMIN B1 LEVEL WHOLE BLOOD 164.4 nmol/L (66.5-200.0); VITAMIN B6,PYRIDOXAL PHOSPHATE 17.2 ug/L (3.4-65.2); VITAMIN E(ALPHA TOCOPHEROL) 13.5 mg/L (9.0-29.0); VITAMIN E(GAMMA TOCOPHEROL) 0.4 mg/L (0.5-4.9)
== END ==
PROVIDERS: ATTEND Internal Medicine
DX: E03.9 Hypothyroidism, unspecified (principal)

== ENCOUNTER → 2022-10-11 | Outpatient (REF) | PROVIDERS: ATTEND Internal Medicine | DX: I10 Essential (primary) hypertension (principal); Z53.8 Procedure and treatment not carried out for other reasons ==

== ENCOUNTER → 2022-10-19 | Outpatient (REF) | PROVIDERS: ATTEND Internal Medicine | DX: S50.02XA Contusion of left elbow, initial encounter (principal); M65.88 Other synovitis and tenosynovitis, other site ==

== ENCOUNTER → 2022-10-28 | Outpatient (REF) | payer MEDICARE, MEDICAID | PROVIDERS: ATTEND Internal Medicine | DX: R05.9 Cough, unspecified (principal) ==

== ENCOUNTER → 2022-12-05 | Outpatient (REF) | payer MEDICARE, MEDICAID | PROVIDERS: ATTEND Internal Medicine | DX: J06.9 Acute upper respiratory infection, unspecified (principal) ==

== ENCOUNTER → 2023-02-07 | Outpatient (REF) | payer MEDICARE, MEDICAID ==
[~2023-02-07] MED LIST changes: -ASPE16CR TOP; +FLUT50SP17; -FLUTISP; +LIDO76.52 TOP
== END ==
PROVIDERS: ATTEND Internal Medicine
DX: E03.9 Hypothyroidism, unspecified (principal)

== ENCOUNTER → 2023-03-05 | Outpatient (REF) | payer MEDICARE, MEDICAID | PROVIDERS: ATTEND Internal Medicine | DX: R05.9 Cough, unspecified (principal); R09.89 Other specified symptoms and signs involving the circulatory and respiratory systems ==

== ENCOUNTER → 2023-03-07 | Outpatient (REF) | payer MEDICARE, MEDICAID | PROVIDERS: ATTEND Internal Medicine | DX: J98.6 Disorders of diaphragm (principal); I70.0 Atherosclerosis of aorta ==

== ENCOUNTER → 2023-05-04 | Outpatient (REF) | payer MEDICARE, MEDICAID | PROVIDERS: ATTEND Internal Medicine | DX: R05.9 Cough, unspecified (principal) ==

== ENCOUNTER → 2023-05-05 | Outpatient (REF) | payer MEDICARE, MEDICAID ==
[2023-05-05 11:03] LABS: BASO % 0.9 % (0.0-1.0); EOS # 0.3 10^3/uL (0.0-0.5); HEMATOCRIT 34.4 % (36.0-47.0); HEMOGLOBIN 11.2 g/dl (12.0-15.5); LYMPH # 1.3 10^3/uL (1.5-5.0); LYMPH % 28.4 % (24.0-44.0); MEAN CORPUSCULAR HEMOGLOBIN 32.7 pg (27.0-33.0); MEAN CORPUSCULAR HGB CONC 32.6 g/dl (32.0-36.5); MEAN CORPUSCULAR VOLUME 100.6 fl (80.0-96.0); MONO # 0.5 10^3/uL (0.0-0.8); MONO % 11.1 % (2.0-8.0); NEUTROPHILS # 2.5 10^3/uL (1.5-8.5); NEUTROPHILS % 53.4 % (36.0-66.0); PLATELET COUNT, AUTOMATED 305 10^3/uL (150-450); RED BLOOD COUNT 3.42 10^6/uL (4.00-5.40); WHITE BLOOD COUNT 4.7 10^3/uL (4.0-10.0)
[2023-05-05 11:28] LABS: ALBUMIN 3.4 G/DL (3.2-5.2); ALKALINE PHOSPHATASE 70 U/L (46-116); ALT/SGPT 12 U/L (7.0-40); AST/SGOT 12 U/L (<34); BILIRUBIN,TOTAL 0.5 MG/DL (0.3-1.2); BLOOD UREA NITROGEN 20 MG/DL (9-23); CALCIUM LEVEL 9.6 MG/DL (8.3-10.6); CARBON DIOXIDE LEVEL 25 MMOL/L (20-31); CHLORIDE LEVEL 106 MMOL/L (98-107); CREATININE FOR GFR 0.78 MG/DL (0.55-1.30); GLOMERULAR FILTRATION RATE > 60.0 (>32); GLUCOSE, FASTING 103 MG/DL (74-106); POTASSIUM SERUM 4.1 MMOL/L (3.5-5.1); SODIUM LEVEL 136 MMOL/L (136-145); TOTAL PROTEIN 6.6 G/DL (5.7-8.2)
[2023-05-05 11:30] LABS: THYROID STIMULATING HORMONE 2.832 uIU/ML (0.55-4.78); VITAMIN B12 LEVEL 497 PG/ML (211-911)
== END ==
PROVIDERS: ATTEND Internal Medicine
DX: R68.89 Other general symptoms and signs (principal); Z79.899 Other long term (current) drug therapy

== ENCOUNTER → 2023-05-11 | Outpatient (REF) | payer MEDICARE, MEDICAID | PROVIDERS: ATTEND Internal Medicine | DX: R05.9 Cough, unspecified (principal) ==

== ENCOUNTER → 2023-05-12 | Outpatient (REF) | payer MEDICARE, MEDICAID | PROVIDERS: ATTEND Internal Medicine | DX: M79.602 Pain in left arm (principal); W19.XXXA Unspecified fall, initial encounter; Y92.129 Unspecified place in nursing home as the place of occurrence of the external cause; Y93.9 Activity, unspecified; Z87.81 Personal history of (healed) traumatic fracture ==

== ENCOUNTER → 2023-06-21 | Outpatient (CLI) | payer MEDICARE, MEDICAID ==
[~2023-06-21] MED LIST changes: +BARIUM SULFATE 700 MG TABLET (E-Z-DISK) As Ordered ONE; +E-Z-PAQUE 96% w/w SUSP 176GM BTL As Ordered ONE; -GABA-283 PO; +GABA-284 PO; +VARIBAR NECTAR 40% w/v 240ML SUSP BTL As Ordered ONE; +VARIBAR PUDDING 40% w/v 230ML TUBE As Ordered ONE
== END ==
LOC: M RAD 11:04
PROVIDERS: ATTEND Internal Medicine
DX: R13.12 Dysphagia, oropharyngeal phase (principal)

== ENCOUNTER → 2023-07-01 | Outpatient (REF) | payer MEDICARE, MEDICAID ==
[~2023-07-01] MED LIST changes: -BARIUM SULFATE 700 MG TABLET (E-Z-DISK) As Ordered ONE; -E-Z-PAQUE 96% w/w SUSP 176GM BTL As Ordered ONE; -VARIBAR NECTAR 40% w/v 240ML SUSP BTL As Ordered ONE; -VARIBAR PUDDING 40% w/v 230ML TUBE As Ordered ONE
== END ==
PROVIDERS: ATTEND Internal Medicine
DX: R06.2 Wheezing (principal); M19.011 Primary osteoarthritis, right shoulder; M19.012 Primary osteoarthritis, left shoulder

== ENCOUNTER → 2023-08-12 | Outpatient (REF) | payer MEDICARE, MEDICAID ==
[~2023-08-12] MED LIST changes: +MECL-209 PO; -MECL1TAB31 PO
== END ==
PROVIDERS: ATTEND Internal Medicine
DX: R05.9 Cough, unspecified (principal)

== ENCOUNTER → 2023-08-17 | Outpatient (REF) | payer MEDICARE, MEDICAID ==
[2023-08-17 11:29] LABS: BASO % 0.6 % (0.0-1.0); EOS # 0.1 10^3/uL (0.0-0.5); EOS % 3.4 % (0.0-3.0); HEMATOCRIT 36.7 % (36.0-47.0); HEMOGLOBIN 12.2 g/dl (12.0-15.5); LYMPH # 1.4 10^3/uL (1.5-5.0); LYMPH % 38.4 % (24.0-44.0); MEAN CORPUSCULAR HEMOGLOBIN 33.1 pg (27.0-33.0); MEAN CORPUSCULAR HGB CONC 33.2 g/dl (32.0-36.5); MEAN CORPUSCULAR VOLUME 99.5 fl (80.0-96.0); MONO # 0.5 10^3/uL (0.0-0.8); MONO % 14.5 % (2.0-8.0); NEUTROPHILS # 1.5 10^3/uL (1.5-8.5); NEUTROPHILS % 42.8 % (36.0-66.0); PLATELET COUNT, AUTOMATED 265 10^3/uL (150-450); RED BLOOD COUNT 3.69 10^6/uL (4.00-5.40); WHITE BLOOD COUNT 3.5 10^3/uL (4.0-10.0)
[2023-08-17 11:50] LABS: ALBUMIN 3.6 G/DL (3.2-5.2); ALKALINE PHOSPHATASE 83 U/L (46-116); ALT/SGPT 23 U/L (7.0-40); AST/SGOT 31 U/L (<34); BILIRUBIN,TOTAL 0.5 MG/DL (0.3-1.2); BLOOD UREA NITROGEN 18 MG/DL (9-23); CALCIUM LEVEL 8.7 MG/DL (8.3-10.6); CARBON DIOXIDE LEVEL 26 MMOL/L (20-31); CHLORIDE LEVEL 102 MMOL/L (98-107); CREATININE FOR GFR 0.81 MG/DL (0.55-1.30); GLOMERULAR FILTRATION RATE > 60.0 (>32); GLUCOSE, FASTING 88 MG/DL (74-106); POTASSIUM SERUM 4.2 MMOL/L (3.5-5.1); SODIUM LEVEL 137 MMOL/L (136-145); TOTAL PROTEIN 7.1 G/DL (5.7-8.2)
== END ==
PROVIDERS: ATTEND Internal Medicine
DX: U07.1 COVID-19 (principal); Z79.899 Other long term (current) drug therapy

== ENCOUNTER → 2024-01-23 | Outpatient (REF) | payer MEDICARE, MEDICAID ==
[~2024-01-23] MED LIST changes: -ASPI-161 PO; +ASPI-615 PO; -FLUT50SP17; +FLUTISP
== END ==
PROVIDERS: ATTEND Internal Medicine
DX: E03.9 Hypothyroidism, unspecified (principal)

== ENCOUNTER → 2024-04-23 | Outpatient (REF) | payer MEDICARE, MEDICAID | PROVIDERS: ATTEND Internal Medicine | DX: E07.9 Disorder of thyroid, unspecified (principal) ==

== ENCOUNTER → 2024-09-17 | Outpatient (REF) | payer MEDICARE, MEDICAID, OTHER ==
[~2024-09-17] MED LIST changes: +NYST1POW3 TOP; -NYST1POW9 TOP; -SIME180C25 PO; +SIME1CAP4 PO
[2024-09-17 09:16] LABS: HEMATOCRIT 30.4 % (36.0-47.0); MEAN CORPUSCULAR HEMOGLOBIN 34.1 pg (27.0-33.0); MEAN CORPUSCULAR HGB CONC 32.9 g/dl (32.0-36.5); MEAN CORPUSCULAR VOLUME 103.8 fl (80.0-96.0); PLATELET COUNT, AUTOMATED 278 10^3/uL (150-450); RED BLOOD COUNT 2.93 10^6/uL (4.00-5.40); WHITE BLOOD COUNT 8.3 10^3/uL (4.0-10.0)
== END ==
PROVIDERS: ATTEND Internal Medicine
DX: R04.0 Epistaxis (principal)

== ENCOUNTER → 2024-10-16 | Outpatient (REF) | payer MEDICARE, MEDICAID ==
[~2024-10-16] MED LIST changes: -GUAI1SYP8 PO; +GUAI237S12 PO
== END ==
PROVIDERS: ATTEND Internal Medicine
DX: R09.89 Other specified symptoms and signs involving the circulatory and respiratory systems (principal); Z87.81 Personal history of (healed) traumatic fracture

== ENCOUNTER → 2024-10-29 | Outpatient (REF) | payer MEDICARE, MEDICAID, OTHER | PROVIDERS: ATTEND Internal Medicine | DX: N18.9 Chronic kidney disease, unspecified (principal); Z79.899 Other long term (current) drug therapy ==

== ENCOUNTER → 2024-11-09 | Outpatient (REF) | payer MEDICARE, MEDICAID, OTHER ==
[2024-11-09 15:54] LABS: APPEARANCE, URINE TURBID (CLEAR); BACTERIA, URINE AUTO 2+ (NEGATIVE); BILIRUBIN, URINE AUTO NEGATIVE (NEGATIVE); BLOOD, URINE BLOOD 1+ (NEGATIVE); COLOR, URINE AMBER (YELLOW); GLUCOSE, URINE (UA) AUTO NEGATIVE (NEGATIVE); KETONE, URINE AUTO NEGATIVE (NEGATIVE); LEUKOCYTE ESTERASE, URINE AUTO 3+ (NEGATIVE); NITRITE, URINE AUTO POSITIVE (NEGATIVE); PROTEIN, URINE AUTO 1+ mg/dL (NEGATIVE); RBC, URINE AUTO 45 /HPF (0-3); SPECIFIC GRAVITY URINE AUTO 1.011 (1.002-1.035); SQUAMOUS EPITHELIAL CELL UR AU 2 /HPF (0-6); UROBILINOGEN, URINE AUTO 0.2 mg/dL (0.0-2.0); WBC, URINE AUTO TNTC /HPF (0-3)
== END ==
PROVIDERS: ATTEND Internal Medicine
DX: N39.0 Urinary tract infection, site not specified (principal)

== ENCOUNTER → 2024-11-28 | Outpatient (REF) | payer MEDICARE, MEDICAID, OTHER ==
[2024-11-28 15:44] LABS: HEMATOCRIT 31.5 % (36.0-47.0); HEMOGLOBIN 10.1 g/dl (12.0-15.5); MEAN CORPUSCULAR HEMOGLOBIN 32.1 pg (27.0-33.0); MEAN CORPUSCULAR HGB CONC 32.1 g/dl (32.0-36.5); PLATELET COUNT, AUTOMATED 339 10^3/uL (150-450); RED BLOOD COUNT 3.15 10^6/uL (4.00-5.40); WHITE BLOOD COUNT 4.9 10^3/uL (4.0-10.0)
[2024-11-28 15:59] LABS: INR 1.01; PROTHROMBIN TIME 13.6 SECONDS (12.5-14.5)
== END ==
PROVIDERS: ATTEND Internal Medicine
DX: R04.0 Epistaxis (principal)